=== PATIENT | female | born 1940 | race Caucasian/White ===

== ENCOUNTER → 2017-02-27 | Outpatient (REF) | payer BC, MEDICARE | LOC: M LAB REF 18:04 | PROVIDERS: ATTEND Surgery | DX: L72.3 Sebaceous cyst (principal) ==

== ENCOUNTER → 2017-03-11 | Outpatient (REF) | payer MEDICARE ==
[2017-03-11 14:40] LABS: INR 2.94
== END ==
LOC: M LAB REF 14:22
PROVIDERS: ATTEND Nurse Practitioner Adult Health
DX: Z79.01 Long term (current) use of anticoagulants (principal); Z86.718 Personal history of other venous thrombosis and embolism

== ENCOUNTER → 2017-03-28 | Outpatient (REF) | payer MEDICARE ==
[2017-03-28 18:01] LABS: RETIC HEMOGLOBIN EQUIVALENT 29.8 pg (24-36); RETICULOCYTE # 126.2 10^9/L (17-77); RETICULOCYTE % 3.1 % (0.5-1.5)
[2017-03-28 18:28] LABS: VITAMIN B12 LEVEL 365 PG/ML (247-911)
[2017-03-28 18:43] LABS: FERRITIN 43 NG/ML (8-252); IRON (FE) 238 UG/DL (50-170); PERCENT SATURATION 59.9 % (13.2-45.0); TOTAL IRON BINDING CAPACITY 397 UG/DL (250-450)
[2017-04-01 09:18] LABS: PRETREATED FOLATE FOR RBCFOL 10.4 NG/ML; RBC FOLATE 590.3 NG/ML (280-791)
== END ==
LOC: M LAB REF 16:14
DX: D64.9 Anemia, unspecified (principal)
CPT/HCPCS: 83550

== ENCOUNTER 2017-04-04 08:03 | Inpatient (IN) | payer MEDICARE, BC, OTHER ==
[2017-04-04] MEDS: MORPHINE 4 MG/ML 1ML SYRINGE IV (08:50)
[2017-04-04 09:23] LABS: BASO # 0.1 10^3/uL (0.0-0.2); BASO % 0.7 % (0.0-1.0); EOS # 0.1 10^3/uL (0.0-0.50); HEMATOCRIT 35.1 % (36.0-47.0); HEMOGLOBIN 10.7 g/dl (12.0-16.0); IMMATURE GRANULOCYTE # 0.1 10^3/uL (0-0); IMMATURE GRANULOCYTE % 0.8 % (0-0); LYMPH # 1.1 10^3/uL (1.5-4.5); LYMPH % 9.5 % (24.0-44.0); MEAN CORPUSCULAR HEMOGLOBIN 27.9 pg (27.0-33.0); MEAN CORPUSCULAR HGB CONC 30.5 g/dl (32.0-36.5); MEAN CORPUSCULAR VOLUME 91.6 fl (80.0-96.0); MONO # 0.9 10^3/uL (0.0-0.8); MONO % 7.7 % (0.0-5.0); NEUTROPHILS # 9.7 10^3/uL (1.8-7.7); NEUTROPHILS % 80.3 % (36.0-66.0); PLATELET COUNT, AUTOMATED 495 10^3/uL (150-450); RED BLOOD COUNT 3.83 10^6/uL (4.00-5.40); RED CELL DISTRIBUTION WIDTH 16.3 % (11.5-14.5)
[2017-04-04 09:33] LABS: INR 2.22; PROTHROMBIN TIME 25.4 SECONDS (12.4-14.5)
[2017-04-04 09:34] LABS: PARTIAL THROMBOPLASTIN TIME 44.6 SECONDS (26.8-37.9)
[2017-04-04 09:36] LABS: D-DIMER QUANT 2256.3 ng/ml (<500)
[2017-04-04 09:40] LABS: ALBUMIN 3.6 GM/DL (3.2-5.2); ALBUMIN/GLOBULIN RATIO 0.97 (1.00-1.93); ALKALINE PHOSPHATASE 119 U/L (45-117); ALT/SGPT 13 U/L (12-78); ANION GAP 9 MEQ/L (8-16); AST/SGOT 11 U/L (7-37); BILIRUBIN,DIRECT < 0.1 MG/DL (0.0-0.2); BILIRUBIN,TOTAL 0.2 MG/DL (0.2-1.0); BLOOD UREA NITROGEN 23 MG/DL (7-18); C REACTIVE PROTEIN QUANTITATIV < 0.30 MG/DL (0.00-0.30); CALCIUM LEVEL 8.6 MG/DL (8.8-10.2); CARBON DIOXIDE LEVEL 24 MEQ/L (21-32); CHLORIDE LEVEL 104 MEQ/L (98-107); CREATININE FOR GFR 0.99 MG/DL (0.55-1.02); GLOMERULAR FILTRATION RATE 57.8 (>39); GLUCOSE, FASTING 215 MG/DL (83-110); POTASSIUM SERUM 4.2 MEQ/L (3.5-5.1); SODIUM LEVEL 137 MEQ/L (136-145); TOTAL PROTEIN 7.3 GM/DL (6.4-8.2)
[2017-04-04 10:02] LABS: ERYTHROCYTE SEDIMENTATION RATE 37 mm/hr (0-30)
[2017-04-04] MEDS ORDERED: fentaNYL 100 MCG/2 ML INJECTION (J3010) As Ordered ×2 (11:24→12:57)
[2017-04-04] MEDS ORDERED: MIDAZOLAM INJ 2 MG/2 ML VIAL (J2250) As Ordered (11:24)
[2017-04-04] MEDS ORDERED: HEPARIN 1,000 UNITS/ML 10ML VIAL (FOR RADIOLOGY& DIALYSIS ONLY) As Ordered (11:25)
[2017-04-04] MEDS ORDERED: ISOVUE-300 61% 50ML VIAL (Q9967) As Ordered (11:25)
[2017-04-04] MEDS ORDERED: ALTEPLASE 2 MG/2 ML VIAL (J2997 PER 1MG) As Ordered (11:33)
[2017-04-04] MEDS: HEPARIN DRIP 25,000 UNITS in APPROPRIATE DILUENT 1 EA IV (14:00)
[2017-04-04] MEDS: ALTEPLASE RECOMBINANT 10 MG in APPROPRIATE DILUENT 1 EA IV (14:00)
[2017-04-04] MEDS: NS 1,000 ML IV ×3 (14:00→15:40)
[2017-04-04] MEDS ORDERED: ACETAMINOPHEN TAB 650MG DOSE (2X325MG) PO (14:00)
[2017-04-04] MEDS ORDERED: diphenhydrAMINE INJ 50MG/ML VIAL (J1200) IV (14:00)
[2017-04-04] MEDS ORDERED: EPIDURAL/PCA KEYS XX (14:00)
[2017-04-04] MEDS: ALTEPLASE RECOMBINANT 25 MG in NS 225 ML IV (14:00)
[2017-04-04] MEDS ORDERED: NALOXONE INJ 0.4 MG/1 ML VIAL (J2310) IV (14:00)
[2017-04-04] MEDS ORDERED: NALBUPHINE HCL 10 MG/ML AMP (J2300) IV (14:00)
[2017-04-04] MEDS ORDERED: MOM 30ML SUSPENSION UDC PO (14:00)
[2017-04-04] MEDS ORDERED: MORPHINE 4 MG/ML 1ML SYRINGE IV (14:00)
[2017-04-04] MEDS ORDERED: MORPHINE 2 MG/ML 1ML SYRINGE IV (14:00)
[2017-04-04] MEDS ORDERED: BISACODYL 10 MG SUPP PR (14:00)
[2017-04-04] MEDS ORDERED: MORPHINE 2 MG/ML 1ML SYRINGE As Ordered (14:24)
[2017-04-04] MEDS: MORPHINE 2 MG/ML 1ML SYRINGE IV (14:30)
[2017-04-04] MEDS: MORPHINE 1MG/ML IN 0.9% NACL 100ML IV BAG IV (14:50)
[2017-04-04 15:23] LABS: BASO # 0.1 10^3/uL (0.0-0.2); BASO % 0.5 % (0.0-1.0); EOS % 0.1 % (0.0-3.0); HEMATOCRIT 29.6 % (36.0-47.0); HEMOGLOBIN 9.4 g/dl (12.0-16.0); IMMATURE GRANULOCYTE # 0.2 10^3/uL (0-0); LYMPH # 0.5 10^3/uL (1.5-4.5); MEAN CORPUSCULAR HEMOGLOBIN 28.6 pg (27.0-33.0); MEAN CORPUSCULAR HGB CONC 31.8 g/dl (32.0-36.5); NEUTROPHILS % 89.4 % (36.0-66.0); RED BLOOD COUNT 3.29 10^6/uL (4.00-5.40); RED CELL DISTRIBUTION WIDTH 16.3 % (11.5-14.5); WHITE BLOOD COUNT 16.7 10^3/uL (4.0-10.0)
[2017-04-04 15:32] LABS: PLATELET COUNT, AUTOMATED 358 10^3/uL (150-450)
[2017-04-04 15:38] LABS: INR 2.65; PROTHROMBIN TIME 29.4 SECONDS (12.4-14.5)
[2017-04-04] MEDS: HYDROCHLOROthiazide 6.25MG PER 1/4TAB PO (15:38)
[2017-04-04 15:39] LABS: FIBRINOGEN 201 MG/DL (221-452); PARTIAL THROMBOPLASTIN TIME 50.5 SECONDS (26.8-37.9)
[2017-04-04] MEDS: ATENOLOL 25 MG TAB PO (15:39)
[2017-04-04] MEDS: SITagliptin 50 MG TAB (JANUVIA) PO (15:39)
[2017-04-04] MEDS: LOSARTAN 50 MG TAB PO (15:40)
[2017-04-04 15:59] LABS: ANION GAP 7 MEQ/L (8-16); BLOOD UREA NITROGEN 28 MG/DL (7-18); CARBON DIOXIDE LEVEL 25 MEQ/L (21-32); CHLORIDE LEVEL 107 MEQ/L (98-107); CREATININE FOR GFR 0.66 MG/DL (0.55-1.02); GLOMERULAR FILTRATION RATE > 60.0 (>39); GLUCOSE, FASTING 170 MG/DL (83-110); POTASSIUM SERUM 4.3 MEQ/L (3.5-5.1); SODIUM LEVEL 139 MEQ/L (136-145)
[2017-04-04] MEDS: TIOTROPIUM INHALER/CAPSULE (SPIRIVA) INH (16:00)
[2017-04-04] MEDS: ONDANSETRON 4MG/2ML VIAL (J2405) IV (17:45)
[2017-04-04] MEDS ORDERED: PREVNAR 13 VACCINE SYRINGE (CPT CODE:90670) IM (19:15)
[2017-04-04] MEDS: DOCUSATE SODIUM 100 MG CAP PO (21:00)
[2017-04-04] MEDS: HumaLOG INSULIN (NovoLOG) PER UNIT SC (21:00)
[2017-04-04] MEDS: PANTOPRAZOLE 20 MG TAB PO (21:00)
[2017-04-04] MEDS: ATORVASTATIN 20 MG TAB PO (21:00)
[2017-04-04] MEDS ORDERED: metFORMIN XR 500MG TAB *GLUCOPHAGE XR PO (21:00)
[2017-04-04] MEDS ORDERED: GLIMEPIRIDE 2 MG TAB PO (21:00)
[2017-04-04] MEDS: SENOKOT S TAB PO (21:00)
[2017-04-04] MEDS ORDERED: HumaLOG INSULIN (NovoLOG) PER UNIT SC (21:00)
[2017-04-04] MEDS: FERROUS SULFATE 325MG TAB PO (21:00)
[2017-04-04] MEDS ORDERED: DEXTROSE 50% 50 ML SYRINGE IV (21:15)
[2017-04-04] MEDS ORDERED: GLUCOSE 4 GM CHEW TABLET PO (21:15)
[2017-04-04] MEDS ORDERED: GLUCAGON FOR INJ 1 MG VIAL (J1610) SC (21:15)
[2017-04-04 21:25] LABS: BEDSIDE GLUCOSE 196 MG/DL (83-110)
[2017-04-05 02:51] LABS: HEMATOCRIT 27.8 % (36.0-47.0); HEMOGLOBIN 8.5 g/dl (12.0-16.0)
[2017-04-05 03:08] LABS: INR 2.55; PROTHROMBIN TIME 28.5 SECONDS (12.4-14.5)
[2017-04-05 03:09] LABS: FIBRINOGEN 194 MG/DL (221-452); PARTIAL THROMBOPLASTIN TIME 59.9 SECONDS (26.8-37.9)
[2017-04-05] MEDS: HumaLOG INSULIN (NovoLOG) PER UNIT SC ×4 (07:30→20:14)
[2017-04-05 08:40] LABS: HEMATOCRIT 27.2 % (36.0-47.0); HEMOGLOBIN 8.4 g/dl (12.0-16.0)
[2017-04-05] MEDS: ONDANSETRON 4MG/2ML VIAL (J2405) IV (08:52)
[2017-04-05 08:54] LABS: BEDSIDE GLUCOSE 129 MG/DL (83-110)
[2017-04-05 08:57] LABS: INR 2.41; PROTHROMBIN TIME 27.2 SECONDS (12.4-14.5)
[2017-04-05 08:58] LABS: FIBRINOGEN 220 MG/DL (221-452); PARTIAL THROMBOPLASTIN TIME 55.8 SECONDS (26.8-37.9)
[2017-04-05] MEDS: ATENOLOL 25 MG TAB PO (09:00)
[2017-04-05] MEDS: HYDROCHLOROthiazide 6.25MG PER 1/4TAB PO ×2 (09:00→10:54)
[2017-04-05] MEDS: LOSARTAN 50 MG TAB PO (09:00)
[2017-04-05] MEDS: TIOTROPIUM INHALER/CAPSULE (SPIRIVA) INH (09:11)
[2017-04-05] MEDS: FERROUS SULFATE 325MG TAB PO ×2 (10:54→20:11)
[2017-04-05] MEDS: PANTOPRAZOLE 20 MG TAB PO ×2 (10:54→20:11)
[2017-04-05] MEDS: DOCUSATE SODIUM 100 MG CAP PO ×2 (10:54→20:12)
[2017-04-05] MEDS: SENOKOT S TAB PO ×2 (10:54→20:12)
[2017-04-05] MEDS: ALTEPLASE RECOMBINANT 25 MG in NS 225 ML IV (12:13)
[2017-04-05] MEDS: HEPARIN DRIP 25,000 UNITS in APPROPRIATE DILUENT 1 EA IV (12:22)
[2017-04-05 12:23] LABS: BEDSIDE GLUCOSE 233 MG/DL (83-110)
[2017-04-05] MEDS: NS 1,000 ML IV (12:23)
[2017-04-05 14:11] LABS: HEMATOCRIT 26.3 % (36.0-47.0); HEMOGLOBIN 8.2 g/dl (12.0-16.0)
[2017-04-05 14:34] LABS: INR 2.47; PROTHROMBIN TIME 27.7 SECONDS (12.4-14.5)
[2017-04-05 14:35] LABS: FIBRINOGEN 238 MG/DL (221-452); PARTIAL THROMBOPLASTIN TIME 49.6 SECONDS (26.8-37.9)
[2017-04-05 17:42] LABS: BEDSIDE GLUCOSE 208 MG/DL (83-110)
[2017-04-05] MEDS: ATORVASTATIN 20 MG TAB PO (20:12)
[2017-04-05 20:13] LABS: BEDSIDE GLUCOSE 87 MG/DL (83-110)
[2017-04-05 20:15] LABS: HEMOGLOBIN 7.7 g/dl (12.0-16.0)
[2017-04-05 20:29] LABS: INR 2.44; PROTHROMBIN TIME 27.5 SECONDS (12.4-14.5)
[2017-04-05 20:30] LABS: FIBRINOGEN 252 MG/DL (221-452)
[2017-04-05 20:31] LABS: PARTIAL THROMBOPLASTIN TIME 50.2 SECONDS (26.8-37.9)
[2017-04-05] MEDS ORDERED: HumaLOG INSULIN (NovoLOG) PER UNIT SC (21:00)
[2017-04-06 01:43] LABS: HEMATOCRIT 23.9 % (36.0-47.0); HEMOGLOBIN 7.4 g/dl (12.0-16.0)
[2017-04-06 01:54] LABS: INR 2.24; PROTHROMBIN TIME 25.6 SECONDS (12.4-14.5)
[2017-04-06 01:55] LABS: FIBRINOGEN 235 MG/DL (221-452)
[2017-04-06 01:56] LABS: PARTIAL THROMBOPLASTIN TIME 50.2 SECONDS (26.8-37.9)
[2017-04-06] MEDS: HumaLOG INSULIN (NovoLOG) PER UNIT SC ×4 (07:30→20:11)
[2017-04-06 07:54] LABS: BEDSIDE GLUCOSE 151 MG/DL (83-110)
[2017-04-06 07:55] LABS: HEMATOCRIT 22.8 % (36.0-47.0); HEMOGLOBIN 7.1 g/dl (12.0-16.0)
[2017-04-06 08:06] LABS: PROTHROMBIN TIME 22.4 SECONDS (12.4-14.5)
[2017-04-06 08:07] LABS: FIBRINOGEN 245 MG/DL (221-452); PARTIAL THROMBOPLASTIN TIME 46.2 SECONDS (26.8-37.9)
[2017-04-06] MEDS: SENOKOT S TAB PO ×2 (08:38→20:09)
[2017-04-06] MEDS: ATENOLOL 25 MG TAB PO (08:38)
[2017-04-06] MEDS: LOSARTAN 50 MG TAB PO (08:39)
[2017-04-06] MEDS: DOCUSATE SODIUM 100 MG CAP PO ×2 (08:39→20:09)
[2017-04-06] MEDS: HYDROCHLOROthiazide 6.25MG PER 1/4TAB PO (08:39)
[2017-04-06] MEDS: FERROUS SULFATE 325MG TAB PO ×2 (08:39→20:10)
[2017-04-06] MEDS: PANTOPRAZOLE 20 MG TAB PO ×2 (08:39→20:09)
[2017-04-06] MEDS: TIOTROPIUM INHALER/CAPSULE (SPIRIVA) INH (08:54)
[2017-04-06] MEDS ORDERED: NORCO, ANEXSIA 5/325MG TABLET (HYDROcodone/ACETAMINOPHEN) PO (11:15)
[2017-04-06 12:00] LABS: BEDSIDE GLUCOSE 188 MG/DL (83-110)
[2017-04-06] MEDS: HEPARIN DRIP 25,000 UNITS in APPROPRIATE DILUENT 1 EA IV (13:35)
[2017-04-06] MEDS: NS IV (15:17)
[2017-04-06] MEDS: ALTEPLASE RECOMBINANT IV (15:17)
[2017-04-06 17:46] LABS: IMMEDIATE SPIN CROSSMATCH 1 2
[2017-04-06 17:51] LABS: BEDSIDE GLUCOSE 144 MG/DL (83-110)
[2017-04-06] MEDS: ATORVASTATIN 20 MG TAB PO (20:09)
[2017-04-06 20:20] LABS: BEDSIDE GLUCOSE 180 MG/DL (83-110)
[2017-04-06 23:17] LABS: INR 1.31; PROTHROMBIN TIME 16.6 SECONDS (12.4-14.5)
[2017-04-06 23:18] LABS: FIBRINOGEN 267 MG/DL (221-452); PARTIAL THROMBOPLASTIN TIME 37.1 SECONDS (26.8-37.9)
[2017-04-06 23:45] LABS: HEMOGLOBIN 10.2 g/dl (12.0-16.0)
[2017-04-07 05:20] LABS: HEMATOCRIT 31.9 % (36.0-47.0); HEMOGLOBIN 10.5 g/dl (12.0-16.0)
[2017-04-07 05:29] LABS: INR 1.18; PROTHROMBIN TIME 15.2 SECONDS (12.4-14.5)
[2017-04-07 05:30] LABS: FIBRINOGEN 286 MG/DL (221-452); PARTIAL THROMBOPLASTIN TIME 33.1 SECONDS (26.8-37.9)
[2017-04-07] MEDS: HumaLOG INSULIN (NovoLOG) PER UNIT SC ×4 (08:25→21:54)
[2017-04-07 08:26] LABS: BEDSIDE GLUCOSE 159 MG/DL (83-110)
[2017-04-07] MEDS: SENOKOT S TAB PO ×2 (08:26→21:22)
[2017-04-07] MEDS: FERROUS SULFATE 325MG TAB PO ×2 (08:26→21:22)
[2017-04-07] MEDS: LOSARTAN 50 MG TAB PO (08:26)
[2017-04-07] MEDS: DOCUSATE SODIUM 100 MG CAP PO ×2 (08:26→21:22)
[2017-04-07] MEDS: HYDROCHLOROthiazide 6.25MG PER 1/4TAB PO (08:27)
[2017-04-07] MEDS: PANTOPRAZOLE 20 MG TAB PO ×2 (08:27→21:22)
[2017-04-07] MEDS: ATENOLOL 12.5MG PER 1/2 TABLET PO (08:27)
[2017-04-07] MEDS: TIOTROPIUM INHALER/CAPSULE (SPIRIVA) INH (10:09)
[2017-04-07 11:03] LABS: HEMATOCRIT 32.1 % (36.0-47.0); HEMOGLOBIN 10.6 g/dl (12.0-16.0)
[2017-04-07 11:30] LABS: INR 1.15; PARTIAL THROMBOPLASTIN TIME 32.6 SECONDS (26.8-37.9); PROTHROMBIN TIME 14.9 SECONDS (12.4-14.5)
[2017-04-07 11:31] LABS: FIBRINOGEN 290 MG/DL (221-452)
[2017-04-07 11:43] LABS: BEDSIDE GLUCOSE 307 MG/DL (83-110)
[2017-04-07] MEDS ORDERED: ISOVUE-300 61% 50ML VIAL (Q9967) As Ordered (11:59)
[2017-04-07] MEDS ORDERED: HEPARIN 1,000 UNITS/ML 10ML VIAL (FOR RADIOLOGY& DIALYSIS ONLY) As Ordered (13:10)
[2017-04-07] MEDS: HEPARIN DRIP 25,000 UNITS in APPROPRIATE DILUENT 1 EA IV (15:14)
[2017-04-07 17:35] LABS: INR 1.12; PROTHROMBIN TIME 14.6 SECONDS (12.4-14.5)
[2017-04-07 17:36] LABS: BEDSIDE GLUCOSE 234 MG/DL (83-110)
[2017-04-07 17:37] LABS: PARTIAL THROMBOPLASTIN TIME 108.4 SECONDS (26.8-37.9)
[2017-04-07 21:13] LABS: BEDSIDE GLUCOSE 191 MG/DL (83-110)
[2017-04-07] MEDS: ATORVASTATIN 20 MG TAB PO (21:22)
[2017-04-08 01:04] LABS: PROTHROMBIN TIME 13.9 SECONDS (12.4-14.5)
[2017-04-08 01:05] LABS: INR 1.06
[2017-04-08 05:58] LABS: RED BLOOD COUNT 3.67 10^6/uL (4.00-5.40); WHITE BLOOD COUNT 9.9 10^3/uL (4.0-10.0)
[2017-04-08 05:59] LABS: HEMATOCRIT 32.2 % (36.0-47.0); HEMOGLOBIN 10.7 g/dl (12.0-16.0); MEAN CORPUSCULAR HEMOGLOBIN 29.2 pg (27.0-33.0); MEAN CORPUSCULAR HGB CONC 33.2 g/dl (32.0-36.5); MEAN CORPUSCULAR VOLUME 87.7 fl (80.0-96.0); PLATELET COUNT, AUTOMATED 250 10^3/uL (150-450); RED CELL DISTRIBUTION WIDTH 15.4 % (11.5-14.5)
[2017-04-08 06:15] LABS: PARTIAL THROMBOPLASTIN TIME 52.5 SECONDS (26.8-37.9); PROTHROMBIN TIME 13.3 SECONDS (12.4-14.5)
[2017-04-08 06:18] LABS: BLOOD UREA NITROGEN 15 MG/DL (7-18); CREATININE FOR GFR 0.64 MG/DL (0.55-1.02); GLOMERULAR FILTRATION RATE > 60.0 (>39); GLUCOSE, FASTING 167 MG/DL (83-110)
[2017-04-08 06:19] LABS: ANION GAP 5 MEQ/L (8-16); CALCIUM LEVEL 8.1 MG/DL (8.8-10.2); CARBON DIOXIDE LEVEL 29 MEQ/L (21-32); CHLORIDE LEVEL 104 MEQ/L (98-107); POTASSIUM SERUM 3.9 MEQ/L (3.5-5.1); SODIUM LEVEL 138 MEQ/L (136-145)
[2017-04-08] MEDS: HumaLOG INSULIN (NovoLOG) PER UNIT SC ×5 (09:00→22:30)
[2017-04-08] MEDS: ATENOLOL 12.5MG PER 1/2 TABLET PO (09:01)
[2017-04-08] MEDS: LOSARTAN 50 MG TAB PO (09:01)
[2017-04-08] MEDS: SENOKOT S TAB PO ×2 (09:02→22:29)
[2017-04-08] MEDS: DOCUSATE SODIUM 100 MG CAP PO ×2 (09:02→22:30)
[2017-04-08] MEDS: HYDROCHLOROthiazide 6.25MG PER 1/4TAB PO (09:02)
[2017-04-08] MEDS: FERROUS SULFATE 325MG TAB PO ×2 (09:02→22:30)
[2017-04-08] MEDS: PANTOPRAZOLE 20 MG TAB PO ×2 (09:02→22:29)
[2017-04-08] MEDS: TIOTROPIUM INHALER/CAPSULE (SPIRIVA) INH (09:12)
[2017-04-08 11:46] LABS: BEDSIDE GLUCOSE 243 MG/DL (83-110)
[2017-04-08] MEDS: HEPARIN DRIP 25,000 UNITS in APPROPRIATE DILUENT 1 EA IV ×2 (13:51→15:19)
[2017-04-08] MEDS ORDERED: HEPARIN SOD (PORCINE) 5000 UNITS/ML VIAL IV (14:30)
[2017-04-08 14:53] LABS: PARTIAL THROMBOPLASTIN TIME 50.7 SECONDS (26.8-37.9)
[2017-04-08 15:16] LABS: HEMATOCRIT 32.1 % (36.0-47.0); HEMOGLOBIN 10.4 g/dl (12.0-16.0); MEAN CORPUSCULAR HEMOGLOBIN 29.3 pg (27.0-33.0); MEAN CORPUSCULAR HGB CONC 32.4 g/dl (32.0-36.5); MEAN CORPUSCULAR VOLUME 90.4 fl (80.0-96.0); PLATELET COUNT, AUTOMATED 234 10^3/uL (150-450); RED BLOOD COUNT 3.55 10^6/uL (4.00-5.40); RED CELL DISTRIBUTION WIDTH 15.6 % (11.5-14.5); WHITE BLOOD COUNT 8.9 10^3/uL (4.0-10.0)
[2017-04-08] MEDS: HEPARIN SOD (PORCINE) 5000 UNITS/ML VIAL IV (15:20)
[2017-04-08 16:02] LABS: ANION GAP 8 MEQ/L (8-16); BLOOD UREA NITROGEN 15 MG/DL (7-18); CALCIUM LEVEL 7.8 MG/DL (8.8-10.2); CARBON DIOXIDE LEVEL 26 MEQ/L (21-32); CHLORIDE LEVEL 106 MEQ/L (98-107); CREATININE FOR GFR 0.85 MG/DL (0.55-1.02); GLOMERULAR FILTRATION RATE > 60.0 (>39); GLUCOSE, FASTING 291 MG/DL (83-110); POTASSIUM SERUM 3.8 MEQ/L (3.5-5.1); SODIUM LEVEL 140 MEQ/L (136-145)
[2017-04-08 17:10] LABS: BEDSIDE GLUCOSE 277 MG/DL (83-110)
[2017-04-08] MEDS: WARFARIN SOD 5 MG TAB PO (17:17)
[2017-04-08 20:43] LABS: BEDSIDE GLUCOSE 219 MG/DL (83-110)
[2017-04-08 21:06] LABS: PARTIAL THROMBOPLASTIN TIME 69.4 SECONDS (26.8-37.9)
[2017-04-08] MEDS: ATORVASTATIN 20 MG TAB PO (22:29)
[2017-04-09 02:41] LABS: PARTIAL THROMBOPLASTIN TIME 65.5 SECONDS (26.8-37.9)
[2017-04-09 07:55] LABS: BEDSIDE GLUCOSE 212 MG/DL (83-110)
[2017-04-09] MEDS: DOCUSATE SODIUM 100 MG CAP PO (09:04)
[2017-04-09] MEDS: ATENOLOL 12.5MG PER 1/2 TABLET PO (09:04)
[2017-04-09] MEDS: HYDROCHLOROthiazide 6.25MG PER 1/4TAB PO (09:04)
[2017-04-09] MEDS: PANTOPRAZOLE 20 MG TAB PO (09:05)
[2017-04-09] MEDS: ASPIRIN 81 MG ENTERIC TAB PO (09:05)
[2017-04-09] MEDS: LOSARTAN 50 MG TAB PO (09:05)
[2017-04-09] MEDS: SENOKOT S TAB PO (09:05)
[2017-04-09] MEDS: FERROUS SULFATE 325MG TAB PO (09:05)
[2017-04-09] MEDS: HumaLOG INSULIN (NovoLOG) PER UNIT SC ×2 (09:06→11:42)
[2017-04-09] MEDS: TIOTROPIUM INHALER/CAPSULE (SPIRIVA) INH (10:00)
[2017-04-09 11:35] LABS: BEDSIDE GLUCOSE 311 MG/DL (83-110)
[2017-04-09] MEDS: HEPARIN DRIP 25,000 UNITS in APPROPRIATE DILUENT 1 EA IV (14:30)
[2017-04-09] MEDS ORDERED: WARFARIN SOD 7.5 MG TAB PO (17:00)
== END 2017-04-09 17:00 | disposition home or self-care (01) | DRG 253 ==
LOC: M MS4PR 04-07 18:43 → M ED 08:03 → M ED INP 13:49 → M ICU 13:49
PROC: 047L3ZZ Dilation of Left Femoral Artery, Percutaneous Approach (ICD-10-PCS; principal; 2017-04-04)
PROC: 047K3ZZ Dilation of Right Femoral Artery, Percutaneous Approach (ICD-10-PCS; 2017-04-04)
PROC: 3E05317 Introduction of Other Thrombolytic into Peripheral Artery, Percutaneous Approach (ICD-10-PCS; 2017-04-04)
PROC: B41FYZZ Fluoroscopy of Right Lower Extremity Arteries using Other Contrast (ICD-10-PCS; 2017-04-04)
PROC: B41GYZZ Fluoroscopy of Left Lower Extremity Arteries using Other Contrast (ICD-10-PCS; 2017-04-07)
PROC: B41FYZZ Fluoroscopy of Right Lower Extremity Arteries using Other Contrast (ICD-10-PCS; 2017-04-07)
DX: I74.3 Embolism and thrombosis of arteries of the lower extremities (principal); T82.868A Thrombosis due to vascular prosthetic devices, implants and grafts, initial encounter; I82.402 Acute embolism and thrombosis of unspecified deep veins of left lower extremity; F17.200 Nicotine dependence, unspecified, uncomplicated

== ENCOUNTER 2017-04-21 12:11 | Inpatient (IN) | payer MEDICARE ==
[2017-04-21 14:48] LABS: BASO # 0.1 10^3/uL (0.0-0.2); BASO % 0.4 % (0.0-1.0); EOS # 0.1 10^3/uL (0.0-0.50); EOS % 0.3 % (0.0-3.0); HEMATOCRIT 30.4 % (36.0-47.0); HEMOGLOBIN 9.5 g/dl (12.0-16.0); IMMATURE GRANULOCYTE # 0.1 10^3/uL (0-0); IMMATURE GRANULOCYTE % 0.8 % (0-0); LYMPH # 0.6 10^3/uL (1.5-4.5); LYMPH % 4.4 % (24.0-44.0); MEAN CORPUSCULAR HEMOGLOBIN 27.7 pg (27.0-33.0); MEAN CORPUSCULAR HGB CONC 31.3 g/dl (32.0-36.5); MEAN CORPUSCULAR VOLUME 88.6 fl (80.0-96.0); MONO # 0.8 10^3/uL (0.0-0.8); MONO % 5.4 % (0.0-5.0); NEUTROPHILS # 12.7 10^3/uL (1.8-7.7); NEUTROPHILS % 88.7 % (36.0-66.0); PLATELET COUNT, AUTOMATED 591 10^3/uL (150-450); RED BLOOD COUNT 3.43 10^6/uL (4.00-5.40); RED CELL DISTRIBUTION WIDTH 15.1 % (11.5-14.5); WHITE BLOOD COUNT 14.3 10^3/uL (4.0-10.0)
[2017-04-21 15:02] LABS: INR 3.67; PROTHROMBIN TIME 38.3 SECONDS (12.4-14.5)
[2017-04-21 15:03] LABS: PARTIAL THROMBOPLASTIN TIME 69.6 SECONDS (26.8-37.9)
[2017-04-21 15:16] LABS: ALKALINE PHOSPHATASE 100 U/L (45-117); ALT/SGPT 14 U/L (12-78); AMYLASE 33 U/L (25-115); ANION GAP 10 MEQ/L (8-16); AST/SGOT 13 U/L (7-37); BILIRUBIN,DIRECT < 0.1 MG/DL (0.0-0.2); BILIRUBIN,TOTAL 0.1 MG/DL (0.2-1.0); BLOOD UREA NITROGEN 31 MG/DL (7-18); CALCIUM LEVEL 8.7 MG/DL (8.8-10.2); CARBON DIOXIDE LEVEL 23 MEQ/L (21-32); CHLORIDE LEVEL 107 MEQ/L (98-107); GLOMERULAR FILTRATION RATE 57.1 (>39); GLUCOSE, FASTING 130 MG/DL (70-100); LIPASE 100 U/L (73-393); POTASSIUM SERUM 4.8 MEQ/L (3.5-5.1); SODIUM LEVEL 140 MEQ/L (136-145); TOTAL PROTEIN 7.3 GM/DL (6.4-8.2)
[2017-04-21] MEDS: PANTOPRAZOLE 40MG INJ (PROTONIX) (C9113) IV (16:12)
[2017-04-21] MEDS: NS 1,000 ML IV (16:12)
[2017-04-21] MEDS ORDERED: ONDANSETRON 4MG/2ML VIAL (J2405) IV (16:30)
[2017-04-21] MEDS ORDERED: ACETAMINOPHEN TAB 650MG DOSE (2X325MG) PO (16:30)
[2017-04-21] MEDS ORDERED: FERROUS SULFATE 325MG TAB PO (21:00)
[2017-04-21] MEDS ORDERED: SLF 3 ML SYR IV (21:00)
[2017-04-21] MEDS ORDERED: PANTOPRAZOLE 20 MG TAB PO (21:00)
[2017-04-21] MEDS ORDERED: IPRATROPIUM 0.5MG/ALBUTEROL 2.5MG INH SOL UD 3ML (DUONEB)(J7620) NEB (21:15)
[2017-04-21] MEDS ORDERED: GLUCAGON FOR INJ 1 MG VIAL (J1610) SC (21:15)
[2017-04-21] MEDS ORDERED: GLUCOSE 4 GM CHEW TABLET PO (21:15)
[2017-04-21] MEDS ORDERED: DEXTROSE 50% 50 ML SYRINGE IV (21:15)
[2017-04-21 21:26] LABS: TYPE AND SCREEN 1
[2017-04-21] MEDS: HumaLOG INSULIN (NovoLOG) PER UNIT SC (22:16)
[2017-04-21] MEDS: PHYTONADIONE 5 MG TAB PO (22:23)
[2017-04-21] MEDS: ATORVASTATIN 20 MG TAB PO (22:23)
[2017-04-21] MEDS: SLF 3 ML SYR IV (22:24)
[2017-04-21 22:25] LABS: BEDSIDE GLUCOSE 143 MG/DL (83-110)
[2017-04-22 04:07] LABS: HEMATOCRIT 22.4 % (36.0-47.0); MEAN CORPUSCULAR HEMOGLOBIN 27.6 pg (27.0-33.0); MEAN CORPUSCULAR HGB CONC 31.7 g/dl (32.0-36.5); MEAN CORPUSCULAR VOLUME 87.2 fl (80.0-96.0); RED BLOOD COUNT 2.57 10^6/uL (4.00-5.40); RED CELL DISTRIBUTION WIDTH 15.1 % (11.5-14.5); WHITE BLOOD COUNT 9.1 10^3/uL (4.0-10.0)
[2017-04-22 04:12] LABS: HEMOGLOBIN 7.1 g/dl (12.0-16.0); PLATELET COUNT, AUTOMATED 480 10^3/uL (150-450)
[2017-04-22 04:19] LABS: INR 1.99; PROTHROMBIN TIME 23.3 SECONDS (12.4-14.5)
[2017-04-22 04:28] LABS: ANION GAP 7 MEQ/L (8-16); BLOOD UREA NITROGEN 21 MG/DL (7-18); CALCIUM LEVEL 8.2 MG/DL (8.8-10.2); CARBON DIOXIDE LEVEL 28 MEQ/L (21-32); CHLORIDE LEVEL 109 MEQ/L (98-107); CREATININE FOR GFR 0.73 MG/DL (0.55-1.30); GLOMERULAR FILTRATION RATE > 60.0 (>39); GLUCOSE, FASTING 87 MG/DL (70-100); SODIUM LEVEL 144 MEQ/L (136-145)
[2017-04-22] MEDS: PANTOPRAZOLE 40MG INJ (PROTONIX) (C9113) IV ×2 (06:48→18:29)
[2017-04-22] MEDS: SLF 3 ML SYR IV ×3 (06:49→21:08)
[2017-04-22] MEDS: HumaLOG INSULIN (NovoLOG) PER UNIT SC ×4 (07:17→21:00)
[2017-04-22] MEDS: LOSARTAN 50 MG TAB PO (07:53)
[2017-04-22] MEDS: ATENOLOL 12.5MG PER 1/2 TABLET PO (07:54)
[2017-04-22] MEDS: HYDROCHLOROthiazide 6.25MG PER 1/4TAB PO (07:54)
[2017-04-22] MEDS: TIOTROPIUM INHALER/CAPSULE (SPIRIVA) INH (10:55)
[2017-04-22 10:57] LABS: TYPE AND SCREEN 1
[2017-04-22 11:27] LABS: BEDSIDE GLUCOSE 140 MG/DL (83-110)
[2017-04-22 13:34] LABS: HEMATOCRIT 26.5 % (36.0-47.0); HEMOGLOBIN 8.6 g/dl (12.0-16.0)
[2017-04-22 13:48] LABS: INR 1.54; PROTHROMBIN TIME 18.9 SECONDS (12.4-14.5)
[2017-04-22] MEDS ORDERED: LIDOCAINE 2% INJ 100 MG/5 ML SDV (FOR ANES.) As Ordered (14:07)
[2017-04-22] MEDS ORDERED: PROPOFOL 200 MG/20 ML VIAL As Ordered ×2 (14:07→14:22)
[2017-04-22] MEDS ORDERED: GLUCAGON FOR INJ 1 MG VIAL (J1610) As Ordered (14:19)
[2017-04-22 16:08] LABS: IMMEDIATE SPIN CROSSMATCH 1 2
[2017-04-22] MEDS: GOLYTELY SOLN 4000 ML BTL PO (18:29)
[2017-04-22 19:10] LABS: HEMATOCRIT 32.4 % (36.0-47.0); HEMOGLOBIN 10.7 g/dl (12.0-16.0)
[2017-04-22] MEDS: ATORVASTATIN 20 MG TAB PO (21:08)
[2017-04-22 21:21] LABS: BEDSIDE GLUCOSE 117 MG/DL (83-110)
[2017-04-23 00:47] LABS: BEDSIDE GLUCOSE 147 MG/DL (83-110)
[2017-04-23] MEDS: GOLYTELY SOLN 4000 ML BTL PO (04:37)
[2017-04-23] MEDS: PANTOPRAZOLE 40MG INJ (PROTONIX) (C9113) IV ×2 (05:15→17:59)
[2017-04-23] MEDS: SLF 3 ML SYR IV ×3 (05:15→20:20)
[2017-04-23 05:21] LABS: HEMOGLOBIN 10.2 g/dl (12.0-16.0); MEAN CORPUSCULAR HEMOGLOBIN 28.3 pg (27.0-33.0); MEAN CORPUSCULAR HGB CONC 32.9 g/dl (32.0-36.5); MEAN CORPUSCULAR VOLUME 86.1 fl (80.0-96.0); PLATELET COUNT, AUTOMATED 410 10^3/uL (150-450); RED CELL DISTRIBUTION WIDTH 14.4 % (11.5-14.5); WHITE BLOOD COUNT 8.4 10^3/uL (4.0-10.0)
[2017-04-23 05:31] LABS: INR 1.37; PROTHROMBIN TIME 17.2 SECONDS (12.4-14.5)
[2017-04-23 05:37] LABS: ANION GAP 8 MEQ/L (8-16); BLOOD UREA NITROGEN 9 MG/DL (7-18); CALCIUM LEVEL 7.7 MG/DL (8.8-10.2); CARBON DIOXIDE LEVEL 27 MEQ/L (21-32); CHLORIDE LEVEL 107 MEQ/L (98-107); CREATININE FOR GFR 0.57 MG/DL (0.55-1.30); GLOMERULAR FILTRATION RATE > 60.0 (>39); GLUCOSE, FASTING 88 MG/DL (70-100); POTASSIUM SERUM 3.6 MEQ/L (3.5-5.1); SODIUM LEVEL 142 MEQ/L (136-145)
[2017-04-23] MEDS: HumaLOG INSULIN (NovoLOG) PER UNIT SC ×4 (07:30→20:00)
[2017-04-23] MEDS: TIOTROPIUM INHALER/CAPSULE (SPIRIVA) INH (07:56)
[2017-04-23] MEDS: HYDROCHLOROthiazide 6.25MG PER 1/4TAB PO (08:40)
[2017-04-23] MEDS: LOSARTAN 50 MG TAB PO (08:40)
[2017-04-23] MEDS: ATENOLOL 12.5MG PER 1/2 TABLET PO (08:45)
[2017-04-23 10:11] LABS: HEMATOCRIT 30.9 % (36.0-47.0); HEMOGLOBIN 10.2 g/dl (12.0-16.0)
[2017-04-23] MEDS ORDERED: PROPOFOL 200 MG/20 ML VIAL As Ordered ×2 (12:34→13:00)
[2017-04-23] MEDS ORDERED: LIDOCAINE 2% INJ 100 MG/5 ML SDV (FOR ANES.) As Ordered (13:32)
[2017-04-23 16:21] LABS: HEMATOCRIT 32.2 % (36.0-47.0); HEMOGLOBIN 10.9 g/dl (12.0-16.0)
[2017-04-23 16:52] LABS: BEDSIDE GLUCOSE 151 MG/DL (83-110)
[2017-04-23 20:14] LABS: BEDSIDE GLUCOSE 123 MG/DL (83-110)
[2017-04-23] MEDS: ATORVASTATIN 20 MG TAB PO (20:20)
[2017-04-23 22:16] LABS: HEMATOCRIT 30.8 % (36.0-47.0); HEMOGLOBIN 10.1 g/dl (12.0-16.0)
[2017-04-24 05:02] LABS: HEMATOCRIT 30.3 % (36.0-47.0); HEMOGLOBIN 10.2 g/dl (12.0-16.0); MEAN CORPUSCULAR HEMOGLOBIN 29.1 pg (27.0-33.0); MEAN CORPUSCULAR HGB CONC 33.7 g/dl (32.0-36.5); MEAN CORPUSCULAR VOLUME 86.3 fl (80.0-96.0); PLATELET COUNT, AUTOMATED 388 10^3/uL (150-450); RED BLOOD COUNT 3.51 10^6/uL (4.00-5.40); RED CELL DISTRIBUTION WIDTH 14.6 % (11.5-14.5); WHITE BLOOD COUNT 9.1 10^3/uL (4.0-10.0)
[2017-04-24 05:13] LABS: INR 1.37; PROTHROMBIN TIME 17.2 SECONDS (12.4-14.5)
[2017-04-24 05:30] LABS: ANION GAP 8 MEQ/L (8-16); BLOOD UREA NITROGEN 8 MG/DL (7-18); CALCIUM LEVEL 6.9 MG/DL (8.8-10.2); CARBON DIOXIDE LEVEL 24 MEQ/L (21-32); CHLORIDE LEVEL 111 MEQ/L (98-107); CREATININE FOR GFR 0.58 MG/DL (0.55-1.30); GLOMERULAR FILTRATION RATE > 60.0 (>39); GLUCOSE, FASTING 143 MG/DL (70-100); POTASSIUM SERUM 3.3 MEQ/L (3.5-5.1); SODIUM LEVEL 143 MEQ/L (136-145)
[2017-04-24] MEDS: SLF 3 ML SYR IV ×3 (07:00→20:52)
[2017-04-24] MEDS: PANTOPRAZOLE 40MG INJ (PROTONIX) (C9113) IV ×2 (07:00→18:48)
[2017-04-24] MEDS: POTASSIUM CHLORIDE 10 MEQ SR TABLET PO (07:01)
[2017-04-24] MEDS: TIOTROPIUM INHALER/CAPSULE (SPIRIVA) INH (07:34)
[2017-04-24] MEDS: HumaLOG INSULIN (NovoLOG) PER UNIT SC ×4 (07:42→20:52)
[2017-04-24] MEDS: HYDROCHLOROthiazide 6.25MG PER 1/4TAB PO (08:35)
[2017-04-24] MEDS: ATENOLOL 12.5MG PER 1/2 TABLET PO (08:35)
[2017-04-24] MEDS: ASPIRIN 325 MG TAB PO (08:36)
[2017-04-24] MEDS: LOSARTAN 50 MG TAB PO (08:36)
[2017-04-24 10:27] LABS: HEMATOCRIT 31.8 % (36.0-47.0); HEMOGLOBIN 10.4 g/dl (12.0-16.0)
[2017-04-24 12:10] LABS: BEDSIDE GLUCOSE 257 MG/DL (83-110)
[2017-04-24 15:58] LABS: HEMATOCRIT 31.3 % (36.0-47.0); HEMOGLOBIN 10.3 g/dl (12.0-16.0)
[2017-04-24 20:34] LABS: BEDSIDE GLUCOSE 205 MG/DL (83-110)
[2017-04-24] MEDS: ATORVASTATIN 20 MG TAB PO (20:52)
[2017-04-25] MEDS: PANTOPRAZOLE 40MG INJ (PROTONIX) (C9113) IV (05:51)
[2017-04-25] MEDS: SLF 3 ML SYR IV (05:51)
[2017-04-25] MEDS: TIOTROPIUM INHALER/CAPSULE (SPIRIVA) INH (07:03)
[2017-04-25 07:15] LABS: HEMATOCRIT 32.9 % (36.0-47.0); HEMOGLOBIN 10.6 g/dl (12.0-16.0); MEAN CORPUSCULAR HEMOGLOBIN 28.5 pg (27.0-33.0); MEAN CORPUSCULAR HGB CONC 32.2 g/dl (32.0-36.5); MEAN CORPUSCULAR VOLUME 88.4 fl (80.0-96.0); PLATELET COUNT, AUTOMATED 412 10^3/uL (150-450); RED BLOOD COUNT 3.72 10^6/uL (4.00-5.40); RED CELL DISTRIBUTION WIDTH 14.5 % (11.5-14.5); WHITE BLOOD COUNT 10.1 10^3/uL (4.0-10.0)
[2017-04-25 07:27] LABS: PROTHROMBIN TIME 15.4 SECONDS (12.4-14.5)
[2017-04-25] MEDS: HumaLOG INSULIN (NovoLOG) PER UNIT SC (07:30)
[2017-04-25 07:36] LABS: ANION GAP 7 MEQ/L (8-16); BLOOD UREA NITROGEN 6 MG/DL (7-18); CALCIUM LEVEL 7.5 MG/DL (8.8-10.2); CARBON DIOXIDE LEVEL 25 MEQ/L (21-32); CHLORIDE LEVEL 109 MEQ/L (98-107); CREATININE FOR GFR 0.65 MG/DL (0.55-1.30); GLOMERULAR FILTRATION RATE > 60.0 (>39); GLUCOSE, FASTING 139 MG/DL (70-100); POTASSIUM SERUM 3.8 MEQ/L (3.5-5.1); SODIUM LEVEL 141 MEQ/L (136-145)
[2017-04-25] MEDS: ASPIRIN 325 MG TAB PO (09:37)
[2017-04-25] MEDS: LOSARTAN 50 MG TAB PO (09:40)
[2017-04-25] MEDS: HYDROCHLOROthiazide 6.25MG PER 1/4TAB PO (09:40)
[2017-04-25] MEDS: ATENOLOL 12.5MG PER 1/2 TABLET PO (09:40)
== END 2017-04-25 10:45 | disposition home or self-care (01) | DRG 378 ==
LOC: M MS5PR 04-25 03:50 → M ED 12:11 → M ED INP 16:28 → M PCU 20:10
PROC: 8E0W4CZ Robotic Assisted Procedure of Trunk Region, Percutaneous Endoscopic Approach (ICD-10-PCS; 2017-04-22 13:00)
PROC: 30233N1 Transfusion of Nonautologous Red Blood Cells into Peripheral Vein, Percutaneous Approach (ICD-10-PCS; principal; 2017-04-22 14:03)
PROC: 30233K1 Transfusion of Nonautologous Frozen Plasma into Peripheral Vein, Percutaneous Approach (ICD-10-PCS; 2017-04-22 14:03)
PROC: 0DBL8ZX Excision of Transverse Colon, Via Natural or Artificial Opening Endoscopic, Diagnostic (ICD-10-PCS; 2017-04-22 14:03)
DX: K55.21 Angiodysplasia of colon with hemorrhage (principal); D62 Acute posthemorrhagic anemia; K63.5 Polyp of colon; K57.30 Diverticulosis of large intestine without perforation or abscess without bleeding; K64.8 Other hemorrhoids; J44.9 Chronic obstructive pulmonary disease, unspecified; E78.5 Hyperlipidemia, unspecified; I10 Essential (primary) hypertension; E11.9 Type 2 diabetes mellitus without complications; Z79.899 Other long term (current) drug therapy; Z79.01 Long term (current) use of anticoagulants; Z87.891 Personal history of nicotine dependence; D72.829 Elevated white blood cell count, unspecified; K44.9 Diaphragmatic hernia without obstruction or gangrene; Z86.718 Personal history of other venous thrombosis and embolism

== ENCOUNTER 2018-07-06 08:54 | Inpatient (IN) | payer MEDICAID, MEDICARE ==
[~2018-07-06] VITALS: Ht 170.2 cm; Wt 53.5 kg
[~2018-07-06 08:54] MED LIST: ASPI81TA85 PO; ATEN25TA PO; ATOR40TA75 PO; CEFD1CAP8 PO; FERR1TAB8 PO; GLIM4TAB PO; HYDR12.55 PO; LOSA100T50 PO; METF-415 PO; PANT20TA2 PO; PLAV1TAB2 PO; PROT1TAB2 PO; SITA50TAB PO; SPIR1CAP; SPIR1CAP INH; WARF-18; WARF-18 PO
[2018-07-06] MEDS ORDERED: MORPHINE 2 MG/ML 1ML SYRINGE (J2270) IV PRN (09:15)
[2018-07-06] MEDS ORDERED: ONDANSETRON 4MG/2ML VIAL (J2405) IV ONE (09:15)
[2018-07-06] MEDS: NS 1,000 ML IV SCH ×2 (09:27→17:31)
[2018-07-06 09:37] LABS: BASO # 0.1 10^3/uL (0.0-0.2); BASO % 0.8 % (0.0-1.0); EOS # 0.1 10^3/uL (0.0-0.50); EOS % 1.4 % (0.0-3.0); HEMATOCRIT 23.6 % (36.0-47.0); LYMPH # 0.6 10^3/uL (1.5-4.5); LYMPH % 7.9 % (24.0-44.0); MEAN CORPUSCULAR HEMOGLOBIN 24.3 pg (27.0-33.0); MEAN CORPUSCULAR HGB CONC 29.2 g/dl (32.0-36.5); MEAN CORPUSCULAR VOLUME 83.1 fl (80.0-96.0); MONO # 0.7 10^3/uL (0.0-0.8); MONO % 9.1 % (0.0-5.0); NEUTROPHILS # 5.7 10^3/uL (1.8-7.7); NEUTROPHILS % 80.4 % (36.0-66.0); PLATELET COUNT, AUTOMATED 420 10^3/uL (150-450); RED BLOOD COUNT 2.84 10^6/uL (4.00-5.40); WHITE BLOOD COUNT 7.1 10^3/uL (4.0-10.0)
[2018-07-06] MEDS ORDERED: PANTOPRAZOLE 40MG INJ (PROTONIX) (C9113) IV ONE (09:45)
[2018-07-06 09:47] LABS: HEMOGLOBIN 6.9 g/dl (12.0-15.5)
[2018-07-06 10:01] LABS: ALBUMIN 3.5 GM/DL (3.2-5.2); ALT/SGPT 15 U/L (12-78); BILIRUBIN,DIRECT 0.1 MG/DL (0.0-0.2); BILIRUBIN,TOTAL 0.3 MG/DL (0.2-1.0); BLOOD UREA NITROGEN 12 MG/DL (7-18); CALCIUM LEVEL 8.4 MG/DL (8.8-10.2); CARBON DIOXIDE LEVEL 27 MEQ/L (21-32); CHLORIDE LEVEL 108 MEQ/L (98-107); CK-MB VALUE MASS < 1.0 NG/ML (<3.6); CPK CREATINE PHOSPHOKINASE 22 U/L (26-192); CREATININE FOR GFR 0.78 MG/DL (0.55-1.30); GLOMERULAR FILTRATION RATE > 60.0 (>39); GLUCOSE, FASTING 152 MG/DL (70-100); LIPASE 119 U/L (73-393); MB/CK RELATIVE INDEX 4.55 (< OR =4); POTASSIUM SERUM 4.2 MEQ/L (3.5-5.1); SODIUM LEVEL 139 MEQ/L (136-145); TOTAL PROTEIN 7.1 GM/DL (6.4-8.2); TROPONIN I < 0.02 NG/ML (< 0.10)
[2018-07-06] MEDS: PANTOPRAZOLE SODIUM 40 MG in D5W 50 ML IV SCH ×3 (10:02→19:49)
[2018-07-06 10:13] LABS: INR 0.96; PROTHROMBIN TIME 12.9 SECONDS (12.1-14.4)
[2018-07-06 10:14] LABS: PARTIAL THROMBOPLASTIN TIME 29.1 SECONDS (25.4-37.6)
--- NOTE | 2018-07-06 10:15 | REP ---
Acute abdominal series three views including PA chest and supine upright abdomen: PA chest: Comparison is 10/22/2015. There is a 2.4 cm left upper lobe lung nodule as an interval change. Follow-up chest CT is recommended. There are surgical clips superimposed over the left upper lobe, unchanged. Lung mulligan otherwise clear. Cardiac size is normal. The susana, mediastinum, skeletal structures are otherwise unremarkable. There is no free subdiaphragmatic air. Impression: 2.4 cm upper lobe lung nodule. Follow-up chest CT is recommended. Abdomen, supine upright views: The bowel gas pattern is normal. There is a stent in the right upper quadrant, possibly a biliary stent. There are bilateral iliac artery endovascular stents. There are surgical clips in the femoral areas bilaterally. There are no calcifications. Impression: Normal bowel gas pattern. Postsurgical changes as described. Electronically Signed by Allan Cope MD 07/06/2018 10:06 A
[2018-07-06] MEDS ORDERED: AMLO5TAB6 PO (10:35)
[2018-07-06] MEDS ORDERED: LOSA50TA88 PO (10:35)
[2018-07-06] MEDS ORDERED: GLIM2TAB PO (10:35)
[2018-07-06] MEDS ORDERED: DEXTROSE 50% 50 ML SYRINGE IV PRN (11:45)
[2018-07-06] MEDS ORDERED: GLUCOSE 4 GM CHEW TABLET PO PRN (11:45)
[2018-07-06] MEDS ORDERED: GLUCAGON FOR INJ 1 MG VIAL (J1610) SC PRN (11:45)
--- NOTE | 2018-07-06 12:57 | HPE ---
DATE OF ADMISSION: 07/06/2018 PRIMARY CARE PROVIDER: Dr. Nuno Hull. FILLING CARRIER: Dr. iVk Santoyo. CHIEF COMPLAINT: Upper gastrointestinal (GI) bleed with acute blood loss anemia. HISTORY: Carolynn Hale is a 78-year-old. Most of the history is provided by her daughter. Indicate the patient was seen in her primary care office on Friday. Had a syncopal or near syncopal episode in the office. Labs were drawn and patient was told to return to the office today to review these. She has been in bed all weekend, too weak and tired and dizzy to get out of bed. Finally, family brought her to the emergency room where she was found to have a hemoglobin of 6.9. She has heme positive black stools per emergency room evaluation. She is followed by Dr. Vik Santoyo. She had a endoscopic retrograde cholangiopancreatography (ERCP) done June 2017 when she had the cholangitis and required a biliary stent. She has had upper GI bleeds in the past. She has had lower GI bleeding as well. On 03/26/2017, she had a colonoscopy, which just showed some small polyps. She had an esophagogastroduodenoscopy (EGD) on 04/22/2017 that showed multiple (more than 10) small angioectasia of the duodenum treated with argon-beam coagulation. She notes she has been anemic for 6 years and thinks she has chronic intermittent bleeding from the angioectasias. The patient unfortunately has a history of vascular disease status post bilateral common iliac artery and angioplasty and stenting. She also had a deep venous thrombosis (DVT) of the left lower extremity and was anticoagulated on warfarin until her admission for GI Bleeding March 2017. OTHER PAST MEDICAL HISTORY: Hypertension. Hyperlipidemia. Type 2 diabetes. COPD. PAST SURGICAL HISTORY: Tonsillectomy. Bilateral common iliac artery angioplasty stenting. EGDs and colonoscopies as above. ERCP as above. Right-sided axillofemoral and [id number] fem/fem bypass undetermined date. FAMILY HISTORY: Father with a history of coronary artery disease. Mother with a history of lung cancer. He has a sister with a history of lung cancer. Brother had amyotrophic lateral sclerosis (ALS). REVIEW OF SYSTEMS: No abdominal pain, hematemesis, chest pain, she has been dizzy, weak and has not been able to get out of bed. No fever, chills, night sweats. ALLERGIES: No known drug allergies. MEDICATIONS: - amlodipine 5 mg daily - atorvastatin 40 mg daily - clopidogrel 75 mg daily - glimepiride 2 mg twice a day - losartan 50 mg daily - metformin 1000 mg twice a day - Protonix 40 mg twice a day - Januvia 50 mg daily - Spiriva one inhalation daily PHYSICAL EXAMINATION: Blood pressure 127/62, pulse 90, respiratory rate 18, 97% oxygen saturation. General appearance: Elderly, resting comfortably in no distress. Pupils equal, round, and reactive to light. TMs and oropharynx benign. Neck: There is no masses. Heart regular rate and rhythm. 16 systolic ejection murmur. Lung exam showed bilateral dry-sounding rales. Sounding more like fibrosis than fluid. Abdomen: Soft. Nontender. No masses. Extremities: No clubbing, cyanosis or edema. Decrease pulses in the feet still palpable. Neuro: Arms and legs with equal strength. The rest of the exam nonfocal. LABS: White count 72, hemoglobin 6.9, (baseline hemoglobin 11), platelets 420. PT/PTT normal. Sodium 139, potassium 4.2, BUN 12, creatinine 0.7, glucose 152. Stool exam positive in the emergency room. IMPRESSION: 1. Acute blood loss anemia secondary to presumed upper GI bleeding. Patient will be admitted to the progressive care unit (PCU) bed. She has been type and crossed despite being transfused in the emergency room. Will transfused two units packed red blood cells. She is on a Protonix drip. There is no GI coverage, currently. Dr. Reed was contacted by the emergency room and agrees to see the patient in consultation. Will enter a formal consult, which has been communicated to him. Will hold Plavix for now. 2. Diabetes: Hold her glimepiride. Fingerstick blood sugar with sliding scale every 6 hours. 3. Hypertensive heart disease: To continue amlodipine. Hold her losartan for now. 4. 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 She has significant pulmonary fibrosis at that time, which I think is what we hear on exam. I do not think clinically, she is in any failure. Continue her Spiriva. 5. Hyperlipidemia: Continue atorvastatin 40 mg daily. Patient is admitted to the hospitalist group. They will be determining the rounding provider for tomorrow.
[2018-07-06 13:03] VITALS: BP 130/66
[2018-07-06] MEDS: HumaLOG INSULIN (NovoLOG) PER UNIT SC SCH ×2 (13:53→17:48)
[2018-07-06] MEDS: amLODIPine 5 MG TAB PO SCH (14:01)
[2018-07-06 14:11] LABS: HEMATOCRIT 26.9 % (36.0-47.0); HEMOGLOBIN 8.2 g/dl (12.0-15.5); MEAN CORPUSCULAR HEMOGLOBIN 26.2 pg (27.0-33.0); MEAN CORPUSCULAR HGB CONC 30.5 g/dl (32.0-36.5); MEAN CORPUSCULAR VOLUME 85.9 fl (80.0-96.0); PLATELET COUNT, AUTOMATED 356 10^3/uL (150-450); RED BLOOD COUNT 3.13 10^6/uL (4.00-5.40); WHITE BLOOD COUNT 7.2 10^3/uL (4.0-10.0)
[2018-07-06 16:00] VITALS: BP 136/67
--- NOTE | 2018-07-06 18:16 | IPN ---
DATE: 07/06/2018 She has been transfused two units. Her hemoglobin is up to 8.2. Vital signs remains stable. Case was discussed with both Dr. Reed and Dr. Santoyo. The patient knows Dr. Santoyo and underwent an argon photocoagulation over a year ago for angioectasia of the duodenum. Dr. Santoyo will not be available until . Dr. Reed is consulted if we need gastroenterology intervention before then. Hopefully, she remains stable and we will wait until and see whether she needs repeat argon plasma coagulation (APC) therapy.
[2018-07-06 20:00] VITALS: BP 148/66
[2018-07-06 20:14] LABS: HEMATOCRIT 29.4 % (36.0-47.0); HEMOGLOBIN 9.3 g/dl (12.0-15.5); MEAN CORPUSCULAR HGB CONC 31.6 g/dl (32.0-36.5); MEAN CORPUSCULAR VOLUME 82.1 fl (80.0-96.0); PLATELET COUNT, AUTOMATED 349 10^3/uL (150-450); RED BLOOD COUNT 3.58 10^6/uL (4.00-5.40); WHITE BLOOD COUNT 7.4 10^3/uL (4.0-10.0)
[2018-07-06] MEDS: ATORVASTATIN 20 MG TAB PO SCH (20:45)
--- NOTE | 2018-07-06 22:33 | CR ---
DATE OF CONSULTATION: 07/06/2018 REASON FOR CONSULTATION: Marked anemia secondary to gastrointestinal (GI) bleed. HISTORY OF PRESENT ILLNESS: The patient is a 78-year-old woman with a long history of anemia. In 2018, she was found to have multiple angioectasias in the duodenum while undergoing evaluation for some anemia. She had undergone argon plasma coagulation of multiple small lesions in the duodenum by Dr. Santoyo at that time. A colonoscopy was also done, which showed some diverticulosis but he did not feel that this was the source for her bleeding. He had indicated that he felt it was very likely that she had other additional vascular lesions in the more distal portions of the small bowel that were not accessible to treatment. He felt that she was a poor candidate for anticoagulation long-term. She presented today having been seen by her primary physician on Friday with findings of some anemia. She was advised to come to the hospital on Friday, which she did. Her labs showed her to have a hemoglobin of 6.9 with a hematocrit of 23.6. Apparently, she also had a stool guaiac test in the emergency department that was positive. She was admitted by the hospitalist service for management of her anemia. Her underwriting support specialist, Dr. Santoyo, is not available to see her at this time and I was consulted to see the patient regarding her gastrointestinal (GI) bleed. MEDICATIONS ON ADMISSION INCLUDED: - amlodipine 5 mg by mouth daily - atorvastatin 40 mg by mouth at bedtime (q.h.s.) - clopidogrel 75 mg by mouth daily at noon - glimepiride's 2 mg by mouth twice daily - losartan 50 mg by mouth daily at noon - metformin 1 gram by mouth twice daily - pantoprazole 40 mg by mouth twice daily - sitagliptin 50 mg by mouth daily - Spiriva one capsule inhaled daily ALLERGIES: There are no reported drug allergies. PAST SURGICAL HISTORY: The patient has undergone surgery for bilateral cataracts. She has previously undergone a cholecystectomy, but last year was admitted with cholangitis and underwent endoscopic retrograde cholangiopancreatography (ERCP) with placement of a biliary stent as a papillotomy would have been quite risky in the estimation of the underwriting support specialist. Her surgical history also includes previous bilateral common iliac artery angioplasties and stenting, but she subsequently had undergone a right axillobifemoral bypass. In early 2017, she suffered an occlusion of the fem-fem portion of her axillobifemoral and was admitted by Dr. Martin for thrombolysis of the occlusion, which was successful. Medical history is significant for diabetes mellitus type 2. She has hypertension and hypercholesterolemia. She has chronic lung disease associated with a long smoking history. She has had a previous lower extremity deep vein thrombosis. She has known atherosclerotic peripheral vascular disease. SOCIAL HISTORY: The patient is a former smoker who quit within the last two years. She denies any significant alcohol use. FAMILY HISTORY: Her father apparently had significant coronary artery disease and her mother had lung cancer. REVIEW OF SYSTEMS: She denies any chest pain or palpitations. She denies any dysuria or hematuria. She has had regular bowel movements and has been eating. She is not having any ischemic pain in her lower extremities. She denies any history of TIAs stroke or seizure. She has felt quite tired and lightheaded at times. PHYSICAL EXAMINATION: The patient is lying quietly in the hospital bed. She is alert and oriented currently. Skin is warm and dry. Heart exam shows a regular rate and rhythm. The lungs are clear to auscultation bilaterally. Abdomen is flat and soft. She has active bowel sounds. Extremities are without edema. Laboratory studies today include a white count of 7.1 with a hemoglobin of 6.9 and a hematocrit of 23.6 and a platelet count of 420,000 at time of her presentation. Since then, she has had two repeat complete blood counts (CBCs) with the most recent at 194 showing a hemoglobin of 9 and a hematocrit of 29 following transfusion of 2 units of packed red blood cells. Her chemistry profile this morning showed a sodium of 139, potassium 4.2, chloride 108, CO2 of 27, BUN of 12, creatinine 0.78 and a glucose of 152. Her liver function tests were normal. Total protein is 7.1 with an albumin of 3.5. Lipase was normal and her lactic acid was normal at 1.6. Her PT/INR and PTT were all normal. Abdominal x-ray was performed as was a chest x-ray. The abdominal x-ray shows her biliary stent in place in the right mid to upper abdomen. There is some air seen in the biliary tree. She has bilateral iliac stents in place. She has what appears to be a large amount of stool within the colon throughout. She has a number of clips in both groins. Her chest x-ray shows what appears to be some hyperexpansion of the lungs. A left upper lobe lung nodule was noted and a chest CT was recommended. IMPRESSION: 1. Anemia likely secondary to vascular anomalies of the bowel mucosa. 2. Atherosclerotic peripheral vascular disease status post axillary bifemoral bypass. 3. Chronic obstructive pulmonary disease 4. Hypertension. 5. Diabetes mellitus. 6. Hyperlipidemia. 7. Left upper lobe lung nodule. 8. Chronic biliary stent. RECOMMENDATIONS: I would recommend proceeding as has begun with transfusion to a safe hematocrit level. She had undergone previous argon plasma coagulation of some duodenal lesions, though the underwriting support specialist felt at that time that she likely has additional lesions that are not accessible to endoscopic treatment. She is certainly not bleeding briskly at this time, as her hematocrit is increasing appropriately with transfusion. She was noted on chest x-ray on admission to have a nodule in the left upper lobe and certainly a follow-up CT scan to assess this lesion would be prudent, as she would certainly be considered at risk for lung cancer. She has been asking me if she could eat or drink and I see no reason we could not let her have some clear liquids at this time, as an endoscopic exam is not imminent. MATTIE
[2018-07-06 23:59] VITALS: BP 147/67
[2018-07-07] MEDS: PANTOPRAZOLE SODIUM 40 MG in D5W 50 ML IV SCH ×2 (00:58→05:32)
[2018-07-07 01:45] LABS: HEMOGLOBIN 9.2 g/dl (12.0-15.5); MEAN CORPUSCULAR HEMOGLOBIN 26.1 pg (27.0-33.0); MEAN CORPUSCULAR HGB CONC 31.7 g/dl (32.0-36.5); MEAN CORPUSCULAR VOLUME 82.4 fl (80.0-96.0); PLATELET COUNT, AUTOMATED 330 10^3/uL (150-450); RED BLOOD COUNT 3.52 10^6/uL (4.00-5.40); WHITE BLOOD COUNT 7.8 10^3/uL (4.0-10.0)
[2018-07-07] MEDS: NS 1,000 ML IV SCH ×2 (03:13→08:34)
[2018-07-07 04:00] VITALS: BP 136/67
[2018-07-07] MEDS: HumaLOG INSULIN (NovoLOG) PER UNIT SC SCH ×4 (05:32→21:00)
[2018-07-07 05:38] LABS: HEMATOCRIT 28.3 % (36.0-47.0); HEMOGLOBIN 8.9 g/dl (12.0-15.5); MEAN CORPUSCULAR HEMOGLOBIN 25.6 pg (27.0-33.0); MEAN CORPUSCULAR HGB CONC 31.4 g/dl (32.0-36.5); MEAN CORPUSCULAR VOLUME 81.6 fl (80.0-96.0); PLATELET COUNT, AUTOMATED 327 10^3/uL (150-450); RED BLOOD COUNT 3.47 10^6/uL (4.00-5.40); WHITE BLOOD COUNT 6.7 10^3/uL (4.0-10.0)
[2018-07-07 05:53] LABS: BLOOD UREA NITROGEN 9 MG/DL (7-18); CALCIUM LEVEL 7.8 MG/DL (8.8-10.2); CARBON DIOXIDE LEVEL 26 MEQ/L (21-32); CHLORIDE LEVEL 108 MEQ/L (98-107); CREATININE FOR GFR 0.67 MG/DL (0.55-1.30); GLOMERULAR FILTRATION RATE > 60.0 (>39); GLUCOSE, FASTING 110 MG/DL (70-100); POTASSIUM SERUM 3.7 MEQ/L (3.5-5.1); SODIUM LEVEL 140 MEQ/L (136-145)
[2018-07-07] MEDS: TIOTROPIUM INHALER/CAPSULE (SPIRIVA) INH SCH (07:29)
[2018-07-07 08:00] VITALS: BP 129/67
[2018-07-07] MEDS: PANTOPRAZOLE 40MG INJ (PROTONIX) (C9113) IV SCH ×2 (08:34→21:17)
--- NOTE | 2018-07-07 08:50 | IPNPDOC ---
Text Note Date of Service The patient was seen on 07/07/18. NOTE Subjective: Patient seen and examined at bedside. No acute overnight events reported. Patient has no new medical complaints. She would like to resume her diet. No bowel movements. Objective: General: NAD, lying comfortably in bed, somewhat disheveled, slightly hard of hearing HEENT: NC/AT, EOMI, PERRL Lungs: CTA B/L Heart: +S1S2, RRR Abd: soft, +BS, +mid-epigastric tenderness Ext: no edema A/P: # ABLA/UGIB - Hx multiple chronic duodenal angioectasia - s/p 2U PRBC - transition to protonix IV BID - start CLD - d/w surgery - assistance appreciated - Plavix on hold # syncope/near syncope - no further symptoms - no arrhythmia's noted on tele - likely secondary to anemia - continue to monitor # lung nodule - active smoker - family history of lung CA - will need surveillance as outpatient - d/w patient # DM - ISS # Hypertensive heart disease - continue amlodipine - Losartan on hold # COPD with pulmonary fibrosis - continue her Spiriva. # Hyperlipidemia - continue statin therapy #PVD - s/p b/l common iliac artery stents, right-sided axillofemoral and right-to- left fem/fem bypass Dispo: advance diet, transition from protonix infusion to IV, monitor H/H, s urgery follow up VS,Patrickbone, I+O VS, Fishbone, I+O Laboratory Tests 07/06/18 09:21 Red Blood Count 2.84 L, Mean Corpuscular Volume 83.1, Mean Corpuscular Hemoglobin 24.3 L, Mean Corpuscular Hemoglobin Concent 29.2 L, Red Cell Distribution Width 15.9 H, Neutrophils (%) (Auto) 80.4 H, Lymphocytes (%) (Auto) 7.9 L, Monocytes (%) (Auto) 9.1 H, Eosinophils (%) (Auto) 1.4, Basophils (%) (Auto) 0.8, Neutrophils # (Auto) 5.7, Lymphocytes # (Auto) 0.6 L, Monocytes # (Auto) 0.7, Eosinophils # (Auto) 0.1, Basophils # (Auto) 0.1 07/06/18 13:55 Red Blood Count 3.13 L, Mean Corpuscular Volume 85.9, Mean Corpuscular Hemoglobin 26.2 L, Mean Corpuscular Hemoglobin Concent 30.5 L, Red Cell Distribution Width 15.8 H 07/06/18 19:41 Red Blood Count 3.58 L, Mean Corpuscular Volume 82.1, Mean Corpuscular Hemoglobin 26.0 L, Mean Corpuscular Hemoglobin Concent 31.6 L, Red Cell Distribution Width 15.3 H 07/07/18 01:39 Red Blood Count 3.52 L, Mean Corpuscular Volume 82.4, Mean Corpuscular Hemoglo bin 26.1 L, Mean Corpuscular Hemoglobin Concent 31.7 L, Red Cell Distribution Width 15.6 H 07/07/18 05:15 Red Blood Count 3.47 L, Mean Corpuscular Volume 81.6, Mean Corpuscular Hemoglobin 25.6 L, Mean Corpuscular Hemoglobin Concent 31.4 L, Red Cell Distribution Width 15.8 H, Calcium Level 7.8 L Vital Signs Date Time Temp Pulse Resp B/P (MAP) Pulse Ox O2 Delivery O2 Flow Rate FiO2 07/07/18 08:00 97.6 81 18 129/67 (87) 92 07/06/18 12:54 Room Air I&O- Last 24 Hours up to 6 AM 07/07/18 06:00 Intake Total 2756 ml Output Total 400 ml Balance 2356 ml MAURO TAO MD Jul 07, 2018 08:50
[2018-07-07 12:00] VITALS: BP 145/67
[2018-07-07] MEDS: amLODIPine 5 MG TAB PO SCH (13:22)
[2018-07-07 16:00] VITALS: BP 133/62
[2018-07-07] MEDS ORDERED: HumaLOG INSULIN (NovoLOG) PER UNIT SC SCH (17:30)
[2018-07-07 18:10] LABS: HEMATOCRIT 30.7 % (36.0-47.0); HEMOGLOBIN 9.6 g/dl (12.0-15.5)
[2018-07-07 20:00] VITALS: BP 150/67
--- NOTE | 2018-07-07 21:14 | ECGEPIP ---
Stationary ECG Study [facility] - ED Test Date: 2018-07-06 Pat Name: SHRUTI TUCKER Department: Room: - Gender: [id number] Operator: : [id number] Requested By: Ulises Lilly Order Number: [id number] Reading MD: Tere Odell Measurements Intervals Seth Rate: 82 P: 69 IN: 143 QRS: 34 QRSD: 90 T: 57 QT: 375 QTc: 441 Interpretive Statements SINUS RHYTHM NSTTW ABNORMALITY DECREASED RATE 06/25/17 Electronically Signed On 07-07-2018 21:14:07 EDT by Tere Odell
[2018-07-07] MEDS: ATORVASTATIN 20 MG TAB PO SCH (21:17)
[2018-07-07 23:00] VITALS: BP 133/65
[2018-07-08 04:00] VITALS: BP 133/63
[2018-07-08] MEDS: NS 1,000 ML IV SCH (04:10)
[2018-07-08 05:40] LABS: HEMATOCRIT 29.4 % (36.0-47.0); HEMOGLOBIN 9.3 g/dl (12.0-15.5); MEAN CORPUSCULAR HEMOGLOBIN 26.1 pg (27.0-33.0); MEAN CORPUSCULAR HGB CONC 31.6 g/dl (32.0-36.5); MEAN CORPUSCULAR VOLUME 82.4 fl (80.0-96.0); PLATELET COUNT, AUTOMATED 305 10^3/uL (150-450); RED BLOOD COUNT 3.57 10^6/uL (4.00-5.40); WHITE BLOOD COUNT 6.8 10^3/uL (4.0-10.0)
[2018-07-08 06:02] LABS: BLOOD UREA NITROGEN 5 MG/DL (7-18); CALCIUM LEVEL 7.7 MG/DL (8.8-10.2); CARBON DIOXIDE LEVEL 26 MEQ/L (21-32); CHLORIDE LEVEL 111 MEQ/L (98-107); CREATININE FOR GFR 0.66 MG/DL (0.55-1.30); GLOMERULAR FILTRATION RATE > 60.0 (>39); GLUCOSE, FASTING 128 MG/DL (70-100); POTASSIUM SERUM 3.5 MEQ/L (3.5-5.1); SODIUM LEVEL 142 MEQ/L (136-145)
[2018-07-08 07:39] VITALS: BP 120/87
[2018-07-08] MEDS: TIOTROPIUM INHALER/CAPSULE (SPIRIVA) INH SCH (07:44)
[2018-07-08] MEDS: PANTOPRAZOLE 40MG INJ (PROTONIX) (C9113) IV SCH (08:13)
[2018-07-08] MEDS: HumaLOG INSULIN (NovoLOG) PER UNIT SC SCH ×4 (08:14→20:16)
--- NOTE | 2018-07-08 08:41 | IPNPDOC ---
Text Note Date of Service The patient was seen on 07/08/18. NOTE Subjective: Patient seen and examined at bedside. No acute overnight events reported. Patient has no new medical complaints. She would like to resume her diet. No bowel movements. Objective: General: NAD, lying comfortably in bed, somewhat disheveled, slightly hard of hearing HEENT: NC/AT, EOMI, PERRL Lungs: CTA B/L Heart: +S1S2, RRR Abd: soft, +BS, +mid-epigastric tenderness Ext: no edema A/P: # ABLA/UGIB - Hx multiple chronic duodenal angioectasia - s/p 2U PRBC - transition to protonix PO BID - advance diet - d/w surgery - assistance appreciated - Plavix on hold # syncope/near syncope - no further symptoms - no arrhythmia's noted on tele - likely secondary to anemia - continue to monitor # lung nodule - active smoker - family history of lung CA - will need surveillance as outpatient - d/w patient # DM - ISS # Hypertensive heart disease - continue amlodipine - Losartan on hold # COPD with pulmonary fibrosis - continue her Spiriva. # Hyperlipidemia - continue statin therapy #PVD - s/p b/l common iliac artery stents, right-sided axillofemoral and rig ht-to-left fem/fem bypass Dispo: advance diet, transition to PO protonix, monitor H/H, surgery follow up; transfer to floor, d/c tele VS,Alo, I+O VS, Fishbone, I+O Laboratory Tests 07/07/18 17:59 07/08/18 05:17 Red Blood Count 3.57 L, Mean Corpuscular Volume 82.4, Mean Corpuscular Hemoglobin 26.1 L, Mean Corpuscular Hemoglobin Concent 31.6 L, Red Cell Distribution Width 15.9 H, Calcium Level 7.7 L Vital Signs Date Time Temp Pulse Resp B/P (MAP) Pulse Ox O2 Delivery O2 Flow Rate FiO2 07/08/18 07:39 97.5 77 18 120/87 (98) 95 07/06/18 12:54 Room Air I&O- Last 24 Hours up to 6 AM 07/08/18 06:00 Intake Total 3485 ml Output Total 1450 ml Balance 2035 ml MAURO TAO MD Jul 08, 2018 08:41
[2018-07-08 09:50] VITALS: BP 142/56
[2018-07-08] MEDS: amLODIPine 5 MG TAB PO SCH (12:19)
[2018-07-08 14:00] VITALS: BP 142/80
[2018-07-08 18:25] LABS: HEMOGLOBIN 9.4 g/dl (12.0-15.5)
--- NOTE | 2018-07-08 19:01 | CR ---
DATE OF CONSULTATION: 07/08/2018 Inpatient. REASON FOR CONSULTATION: Symptomatic anemia, GI bleeding heme-positive stools. HISTORY OF PRESENT ILLNESS: Debby Hale is a patient well known to me from previous admissions to the hospital. She mainly has a history of small bowel angio ectasias and has been chronically anemic from those in face of antiplatelet medication use for her extensive vascular disease. She also has a indwelling biliary wall stent in place for previous choledocholithiasis. She is a very poor operative candidate due to her antiplatelet medication need and overall general medical condition. The family and the patient chose not to proceed with cholecystectomy. She subsequently had a biliary stent placed by myself and this has managed her biliary colic quite well so far. The patient presents with weakness, fatigue and near syncope from her primary care doctor's office. She was found to be severely anemic. She apparently refused Transfusions as an outpatient but did present to the emergency room. PAST MEDICAL HISTORY: Diabetes, gastroesophageal reflux, hypertension, history of DVT, history of severe extensive peripheral vascular disease, history of iron deficiency anemia, history of small bowel angio ectasias. SURGICAL HISTORY: Axial bifem bypass, EGD with the APC of duodenal AVMs 04/22/2017, colonoscopy negative for bleeding source on 04/23/2017, ERCP for common bile duct stones ascending cholangitis where she had a covered 10 mm x 4 cm wall stent placed in the common bile duct. PHYSICAL EXAMINATION: Vital signs: Temperature 98, pulse 81, respiratory 20, blood pressure 142/80, pulse ox 97% on room air. General: She is awake, alert and oriented times 3 in no acute distress. She is status post transfusion with appropriate elevation of her hemoglobin. Head, eyes, ears, nose and throat are grossly without abnormality. She is mildly pale. Neck is supple. No lymphadenopathy, thyromegaly. Chest is coarse, distant breath sounds with occasional scattered wheezing. No rhonchi or crackles are appreciated. Abdomen is soft, nontender. Good bowel sounds. No masses felt. Extremities: Negative for edema. LABORATORY FINDINGS: Hemoglobin 6.9 pre transfusion on 07/06/2018. It is currently 9.30. MCV is 82.4, BUN 5, creatinine 0.66. IMPRESSION: 1. 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 Bleeding magnified due to anticoagulants / antiplatelet use. 2. Severe peripheral vascular disease. 3. Choledocholithiasis and gallstones in gallbladder - this is managed well at this time with a common bile duct stent in place (10 mm covered wall stent). RECOMMENDATIONS: 1. Continue to hold Plavix for 4-5 days at which time we will do an EGD with plasma coagulation of any additional vascular ectasias that have likely developed. 2. Her biliary stent may continue to stay in place to manage and avoid future common bile duct obstruction due to known stones in her gallbladder and common bile duct. I again understand the patient is not willing to undergo cholecystectomy and due to anatomic reasons removal of stones from the bile duct would be quite risky due to presence of papilla within a diverticulum. She would likely need an open procedure with common bile duct exploration. DISCUSSION: I again discussed her issues with her daughter today. I was able to get a firm and a definite answer on when her last Plavix dose was and this was on Friday. She did not take her Plavix on Friday and therefore I would be comfortable with doing her endoscopic ablation of vascular ectasias on Friday. Briefly also discussed with them that this could theoretically also be done as an outpatient however, they were very hesitant and unwilling to take her home to bring her back at a later date. Therefore I think we all agreed to proceed with this procedure on Friday. MATTIE
[2018-07-08] MEDS: ATORVASTATIN 20 MG TAB PO SCH (20:16)
[2018-07-08] MEDS: PANTOPRAZOLE 40MG TAB (PROTONIX) PO SCH (20:16)
[2018-07-08 22:00] VITALS: BP 138/65
--- NOTE | 2018-07-09 03:38 | IPN ---
DATE: 07/08/2018 HISTORY: The patient was admitted on July 06 with marked anemia felt to be related to a gastrointestinal bleed. She received 2 units of packed red blood cells with adequate increase in her hematocrit to approximately 30. VITAL SIGNS: Show that she has been afebrile for the past 24 hours. Her pulse is in the 70s generally and her blood pressure is good. Room air oxygen saturations are normal. Intake and output show that yesterday she had 3900 in with 1350 recorded out. PHYSICAL EXAMINATION: The patient is alert and oriented and feeling good. She denies any pain. She has been tolerating a regular diet. Heart exam shows a regular rhythm. The lungs are clear. The abdomen shows active bowel sounds. The abdomen is soft and without any significant tenderness. Laboratory studies show a complete blood count (CBC) with a white count of 7, hemoglobin of 9, hematocrit of 29 and platelet count of 305,000. Chemistry profile today shows a sodium of 142, potassium 3.5, chloride 111, CO2 of 26, BUN of 5, creatinine 0.66 and glucose of 128. IMPRESSION: The patient's hemoglobin and hematocrit have remained stable since receiving 2 units of packed red blood cells on the . She denies any obvious rectal bleeding. She is tolerating a regular diet and denies any pain. PLAN: The patient was advised that she should continue the regular diet. She is clearly not having any active bleeding as her hematocrit has remained stable. I advised that I would have no objection to her being discharged tomorrow and she reported that this is the tentative plan apparently with the hospitalist. She should certainly be monitored regarding her hemoglobin and hematocrit. She may well require additional endoscopic exam as followup to see if she has persisting vascular lesions of the small bowel mucosa that might be amendable to coagulation. MATTIE
[2018-07-09 06:00] VITALS: BP 124/66
[2018-07-09 06:01] LABS: HEMATOCRIT 28.8 % (36.0-47.0); HEMOGLOBIN 9.1 g/dl (12.0-15.5); MEAN CORPUSCULAR HEMOGLOBIN 26.2 pg (27.0-33.0); MEAN CORPUSCULAR HGB CONC 31.6 g/dl (32.0-36.5); PLATELET COUNT, AUTOMATED 296 10^3/uL (150-450); RED BLOOD COUNT 3.47 10^6/uL (4.00-5.40)
[2018-07-09 06:29] LABS: BLOOD UREA NITROGEN 11 MG/DL (7-18); CALCIUM LEVEL 7.8 MG/DL (8.8-10.2); CARBON DIOXIDE LEVEL 25 MEQ/L (21-32); CHLORIDE LEVEL 111 MEQ/L (98-107); CREATININE FOR GFR 0.73 MG/DL (0.55-1.30); GLOMERULAR FILTRATION RATE > 60.0 (>39); GLUCOSE, FASTING 165 MG/DL (70-100); POTASSIUM SERUM 3.8 MEQ/L (3.5-5.1); SODIUM LEVEL 141 MEQ/L (136-145)
[2018-07-09] MEDS: TIOTROPIUM INHALER/CAPSULE (SPIRIVA) INH SCH (07:41)
[2018-07-09] MEDS: HumaLOG INSULIN (NovoLOG) PER UNIT SC SCH ×4 (08:31→21:00)
[2018-07-09] MEDS: PANTOPRAZOLE 40MG TAB (PROTONIX) PO SCH ×2 (08:31→21:15)
--- NOTE | 2018-07-09 10:37 | IPNPDOC ---
Text Note Date of Service The patient was seen on 07/09/18. NOTE Subjective: Patient seen and examined at bedside. No acute overnight events reported. Patient has no new medical complaints. She is tolerating her diet. Objective: General: NAD, lying comfortably in bed, somewhat disheveled, slightly hard of hearing HEENT: NC/AT, EOMI, PERRL Lungs: CTA B/L Heart: +S1S2, RRR Abd: soft, +BS, +mid-epigastric tenderness Ext: no edema A/P: # ABLA/UGIB - Hx multiple chronic duodenal angioectasia - s/p 2U PRBC - protonix PO BID - d/w surgery - assistance appreciated - Plavix on hold - d/w GI - plan for upper endoscopy tomorrow # syncope/near syncope - no further symptoms - no arrhythmia's noted on tele - likely secondary to anemia - continue to monitor # lung nodule - active smoker - family history of lung CA - will need surveillance as outpatient - d/w patient # DM - ISS # Hypertensive heart disease - continue amlodipine - Losartan on hold # COPD with pulmonary fibrosis - continue her Spiriva. # Hyperlipidemia - continue statin therapy #PVD - s/p b/l common iliac artery stents, right-sided axillofemoral and rqged-oq-qkww fem/fem bypass Dispo: plan for upper endo tomorrow with GI VS,Fishbone, I+O VS, Fishbone, I+O Laboratory Tests 07/08/18 17:55 07/09/18 05:36 Red Blood Count 3.47 L, Mean Corpuscular Volume 83.0, Mean Corpuscular Hemoglobin 26.2 L, Mean Corpuscular Hemoglobin Concent 31.6 L, Red Cell Distribution Width 16.3 H, Calcium Level 7.8 L Vital Signs Date Time Temp Pulse Resp B/P (MAP) Pulse Ox O2 Delivery O2 Flow Rate FiO2 07/09/18 06:00 98.4 81 20 124/66 (85) 96 07/06/18 12:54 Room Air I&O- Last 24 Hours up to 6 AM 07/09/18 06:00 Intake Total 1130 ml Output Total 750 ml Balance 380 ml MAURO TAO MD Jul 09, 2018 10:37
[2018-07-09] MEDS: amLODIPine 5 MG TAB PO SCH (13:30)
[2018-07-09 14:00] VITALS: BP 130/50
[2018-07-09] MEDS: ATORVASTATIN 20 MG TAB PO SCH (21:15)
[2018-07-09 22:00] VITALS: BP 133/63
[2018-07-10] VITALS (8 sets, daily range): BP systolic 125–177; BP diastolic 59–77
[2018-07-10 06:01] LABS: HEMATOCRIT 29.4 % (36.0-47.0); HEMOGLOBIN 9.1 g/dl (12.0-15.5); MEAN CORPUSCULAR HEMOGLOBIN 25.7 pg (27.0-33.0); MEAN CORPUSCULAR VOLUME 83.1 fl (80.0-96.0); PLATELET COUNT, AUTOMATED 259 10^3/uL (150-450); RED BLOOD COUNT 3.54 10^6/uL (4.00-5.40); WHITE BLOOD COUNT 7.6 10^3/uL (4.0-10.0)
[2018-07-10 06:29] LABS: BLOOD UREA NITROGEN 9 MG/DL (7-18); CARBON DIOXIDE LEVEL 26 MEQ/L (21-32); CHLORIDE LEVEL 110 MEQ/L (98-107); CREATININE FOR GFR 0.73 MG/DL (0.55-1.30); GLOMERULAR FILTRATION RATE > 60.0 (>39); GLUCOSE, FASTING 155 MG/DL (70-100); POTASSIUM SERUM 3.7 MEQ/L (3.5-5.1); SODIUM LEVEL 142 MEQ/L (136-145)
[2018-07-10] MEDS: HumaLOG INSULIN (NovoLOG) PER UNIT SC SCH ×4 (07:30→21:15)
[2018-07-10] MEDS: PANTOPRAZOLE 40MG TAB (PROTONIX) PO SCH ×2 (07:46→20:12)
[2018-07-10] MEDS: TIOTROPIUM INHALER/CAPSULE (SPIRIVA) INH SCH (08:13)
--- NOTE | 2018-07-10 10:10 | IPNPDOC ---
Text Note Date of Service The patient was seen on 07/10/18. NOTE Subjective: Patient seen and examined at bedside. No acute overnight events reported. Patient has no new medical complaints. She is tolerating her diet. Objective: General: NAD, lying comfortably in bed, somewhat disheveled, hard of hearing HEENT: NC/AT, EOMI, PERRL Lungs: CTA B/L Heart: +S1S2, RRR Abd: soft, +BS, +mid-epigastric tenderness Ext: no edema A/P: # ABLA/UGIB - Hx multiple chronic duodenal angioectasia - s/p 2U PRBC - protonix PO BID - d/w surgery - assistance appreciated - Plavix on hold - NPO for upper endoscopy today # syncope/near syncope - no further symptoms - no arrhythmia's noted on tele - likely secondary to anemia - continue to monitor # lung nodule - active smoker - family history of lung CA - will need surveillance as outpatient - d/w patient # DM - ISS # Hypertensive heart disease - continue amlodipine - Losartan on hold # COPD with pulmonary fibrosis - continue her Spiriva. # Hyperlipidemia - continue statin therapy #PVD - s/p b/l common iliac artery stents, right-sided axillofemoral and eywmw-fl-vuya fem/fem bypass Dispo: NPO for upper endo today, scheduled at 2pm with Dr Santoyo; further dispo pending results of procedure VS,Fishbone, I+O VS, Fishbone, I+O Laboratory Tests 07/10/18 05:41 Red Blood Count 3.54 L, Mean Corpuscular Volume 83.1, Mean Corpuscular Hemoglobin 25.7 L, Mean Corpuscular Hemoglobin Concent 31.0 L, Red Cell Distribution Width 16.3 H, Calcium Level 8.0 L Vital Signs Date Time Temp Pulse Resp B/P (MAP) Pulse Ox O2 Delivery O2 Flow Rate FiO2 07/10/18 06:00 97.0 72 18 132/60 (84) 97 07/06/18 12:54 Room Air I&O- Last 24 Hours up to 6 AM 07/10/18 06:00 Intake Total 1800 ml Output Total 775 ml Balance 1025 ml MAURO TAO MD Jul 10, 2018 10:10
[2018-07-10] MEDS: amLODIPine 5 MG TAB PO SCH (13:06)
[2018-07-10] MEDS ORDERED: PROPOFOL 200 MG/20 ML VIAL As Ordered ONE ×2 (15:49→15:51)
[2018-07-10] MEDS ORDERED: fentaNYL 100 MCG/2 ML INJECTION (J3010) As Ordered ONE (15:50)
[2018-07-10] MEDS ORDERED: LIDOCAINE 2% INJ 100 MG/5 ML SDV (FOR ANES.) As Ordered ONE (16:02)
[2018-07-10] MEDS ORDERED: ePHEDrine SULFATE 25 MG/5 ML(5MG/ML) SYRINGE As Ordered ONE (16:20)
--- NOTE | 2018-07-10 16:35 | ROOR ---
Patient Name: Debby Hale Procedure Date: 07/10/2018 7:27 AM Date of : 1940 Age: 78 Room: [facility] Gender: Female Note Status: Finalized Procedure: Upper GI endoscopy Indications: Iron deficiency anemia secondary to chronic blood loss Providers: Vik WIN MD Referring MD: 2. Inpatient 2. Inpatient Requesting Provider: Medicines: Monitored Anesthesia Care Complications: No immediate complications. Procedure: Pre-Anesthesia Assessment: - The heart rate, respiratory rate, oxygen saturations, blood pressure, adequacy of pulmonary ventilation, and response to care were monitored throughout the procedure. The Endoscope was introduced through the mouth, and advanced to the third part of duodenum. The upper GI endoscopy was accomplished without difficulty. The patient tolerated the procedure well. Findings: The examined esophagus was normal. Small Hiatal Hernia. Three diminutive no bleeding angioectasias were found in the gastric body and in the gastric antrum. Coagulation for bleeding prevention using argon beam at 0.8 liters/minute and 20 plaza was successful. The exam of the stomach was otherwise normal. A few diminutive angioectasias without bleeding were found in the first portion of the duodenum, in the second portion of the duodenum and in the third portion of the duodenum. Coagulation for bleeding prevention using argon beam at 0.8 liters/minute and 20 plaza was successful. A medium diverticulum was found in the second portion of the duodenum and in the third portion of the duodenum. A previously placed biliary stent was seen in the area of the papilla. Impression: - Three non-bleeding angioectasias in the stomach. Treated with argon beam coagulation. - A few non-bleeding angioectasias in the duodenum. Treated with argon beam coagulation. - Small Hiatal Hernia. - Duodenal diverticulum. - Patent biliary stent in the duodenum. - No specimens collected. Recommendation: - Observe patient's clinical course. - I anticipate no further need for intervention. Vik Win MD Vik WIN MD 07/10/2018 4:35:14 PM Electronically signed by Vik WIN MD Number of Addenda: 0 Note Initiated On: 07/10/2018 7:27 AM Estimated Blood Loss: Estimated blood loss: none.
[2018-07-10] MEDS: ATORVASTATIN 20 MG TAB PO SCH (20:13)
[2018-07-11 02:00] VITALS: BP 126/59
[2018-07-11 06:00] VITALS: BP 110/61
[2018-07-11 06:54] LABS: BLOOD UREA NITROGEN 10 MG/DL (7-18); CALCIUM LEVEL 7.6 MG/DL (8.8-10.2); CARBON DIOXIDE LEVEL 25 MEQ/L (21-32); CHLORIDE LEVEL 109 MEQ/L (98-107); CREATININE FOR GFR 0.67 MG/DL (0.55-1.30); GLOMERULAR FILTRATION RATE > 60.0 (>39); GLUCOSE, FASTING 156 MG/DL (70-100); POTASSIUM SERUM 3.8 MEQ/L (3.5-5.1); SODIUM LEVEL 141 MEQ/L (136-145)
[2018-07-11] MEDS: PANTOPRAZOLE 40MG TAB (PROTONIX) PO SCH (07:39)
[2018-07-11] MEDS: HumaLOG INSULIN (NovoLOG) PER UNIT SC SCH ×2 (07:40→12:09)
[2018-07-11 07:47] LABS: HEMATOCRIT 29.5 % (36.0-47.0); HEMOGLOBIN 9.1 g/dl (12.0-15.5); MEAN CORPUSCULAR HEMOGLOBIN 25.9 pg (27.0-33.0); MEAN CORPUSCULAR HGB CONC 30.8 g/dl (32.0-36.5); PLATELET COUNT, AUTOMATED 255 10^3/uL (150-450); RED BLOOD COUNT 3.51 10^6/uL (4.00-5.40); WHITE BLOOD COUNT 8.4 10^3/uL (4.0-10.0)
[2018-07-11] MEDS: TIOTROPIUM INHALER/CAPSULE (SPIRIVA) INH SCH (08:16)
[2018-07-11] MEDS ORDERED: MOM 30ML SUSPENSION UDC PO ONE (09:00)
[2018-07-11 10:00] VITALS: BP 130/60
[2018-07-11 12:09] VITALS: BP 159/69
[2018-07-11] MEDS: amLODIPine 5 MG TAB PO SCH (12:09)
--- NOTE | 2018-08-08 22:24 | DS.PDOC ---
Discharge Summary General Date of Admission Jul 06, 2018 at 11:39 Date of Discharge July 11, 2018 Specialist/Consultants Involve: Wan Reed Specialist/Consultants Involve Dr. Santoyo Discharge Summary PROCEDURES PERFORMED DURING STAY: Colonoscopy, argon beam coagulation DISCHARGE DIAGNOSES: #non-bleeding angioectasias in the stomach s/p argon beam coagulation. #non-bleeding angioectasias in the duodenum s/p argon beam coagulation # Hiatal Hernia # Duodenal diverticulum # Patent biliary stent in the duodenum # ABLA/UGIB - s/p 2U PRBC # syncope/near syncope # lung nodule - active smoker, family history of lung CA SECONDARY DIAGNOSES: #Hypertension/hypertensive heart disease #Hyperlipidemia. #Type 2 diabetes. #COPD/pulmonary fibrosis? #PVD - s/p Bilateral common iliac artery angioplasty stenting, right-sided axillofemoral and efqvc-ct-[id number] fem/fem bypass undetermined date. #GI bleed s/p EGDs and colonoscopies and ERCPs COMPLICATIONS/CHIEF COMPLAINT: Acute Blood Loss Anemia Gastrointestinal Bleed. HISTORY OF PRESENT ILLNESS: Carolynn Hale is a 78-year-old female, with most of her history provided by her daughter, who apparently had a syncopal or near syncopal episode in the office. Labs were drawn and patient was told to return to the office today to review these. She has been in bed all weekend, too weak and tired and dizzy to get out of bed. Finally, family brought her to the emergency room where she was found to have a hemoglobin of 6.9. She has heme positive black stools per emergency room evaluation. She is followed by Dr. Vik Santoyo. She had an ERCP done June 2017 when she had the cholangitis and required a biliary stent. She has had upper GI bleeds in the past. She has had lower GI bleeding as well. On 03/26/2017, she had a colonoscopy, which just showed some small polyps. She had an esophagogastroduodenoscopy (EGD) on 04/22/2017 that showed multiple (more than 10) small angioectasia of the duodenum treated with argon-beam coagulation. She notes she has been anemic for 6 years and thinks she has chronic intermittent bleeding from the angioectasias. The patient unfortunately has a history of vascular disease status post bilateral common iliac artery and angioplasty and stenting. She also had a deep venous thrombosis (DVT) of the left lower extremity and was anticoagulated on warfarin until her admission for GI Bleeding March 2017. HOSPITAL COURSE: She was admitted for further evaluation and treatment, and seen inconsultation by surgery and gastroenterology. She was found to be anemic secondary to acute blood loss, and received 2 units PRBC. She underwent a colon oscopy with argon beam coagulation during her hospital stay. She was found to have a lung nodule, is an active smoker, which will need further outpatient follow up. Deemed stable for discharge by GI with recommendations for outpatient follow up. DISCHARGE MEDICATIONS: Please see below. ALLERGIES: Please see below. LABORATORY DATA: Please see below. PROGNOSIS: Guarded ACTIVITY: [As tolerated]. DISPOSITION: Home, Self-Care. DISCHARGE INSTRUCTIONS: 1. Follow up PCP in 3-5 days. 2. Follow up GI as scheduled. ITEMS TO FOLLOWUP ON ON OUTPATIENT: 1. Follow up lung nodule. 2. Follow up hemoglobin/hematocrit. DISCHARGE CONDITION: [Stable]. TIME SPENT ON DISCHARGE: Greater than 30 minutes. Discharge Medications Scheduled Amlodipine Besylate (Amlodipine Besylate) 5 Mg Tablet, 5 MG PO DAILY, (Reported) TAKES AT NOON Atorvastatin Calcium (Atorvastatin Calcium) 40 Mg Tab, 40 MG PO QHS, (Reported) Clopidogrel Bisulfate (Clopidogrel) 75 Mg Tablet, 75 MG PO DAILY Ferrous Sulfate (Ferrous Sulfate) 325 Mg Tablet, 325 MG PO BID, (Reported) Glimepiride (Glimepiride) 2 Mg Tablet, 2 MG PO BID, (Reported) Losartan Potassium (Losartan Potassium) 50 Mg Tablet, 50 MG PO DAILY, (Reported) TAKES AT NOON Metformin HCl (Metformin HCl ER) 500 Mg Tab.er.24h, 1,000 MG PO BID, (Reported) Pantoprazole Sodium (Protonix) 40 Mg Tab, 40 MG PO BID, (Reported) Sitagliptin (Januvia) 50 Mg Tab, 50 MG PO DAILY, (Reported) Sucralfate (Sucralfate) 1 Gm Tablet, 1 GM PO Q6H Tiotropium [place] (Spiriva) 18 Mcg Cap, 1 CAP INH DAILY, (Reported) Allergies Coded Allergies: No Known Allergies (Verified , 02/24/06) MAURO TAO MD August 08, 2018 22:24
== END 2018-07-11 13:07 | disposition home or self-care (01) | DRG 378 ==
LOC: EDBD 08:54 → M ED 08:54 → M ED INP 11:39 → M PCU 13:03 → M MSPAV 07-08 09:46
PROVIDERS: ADMIT Family Medicine; ATTEND Internal Medicine
PROC: 30233N1 Transfusion of Nonautologous Red Blood Cells into Peripheral Vein, Percutaneous Approach (ICD-10-PCS; principal; 2018-07-06)
PROC: 0W3P8ZZ Control Bleeding in Gastrointestinal Tract, Via Natural or Artificial Opening Endoscopic (ICD-10-PCS; 2018-07-10)
DX: K92.2 Gastrointestinal hemorrhage, unspecified (principal); D62 Acute posthemorrhagic anemia; K44.9 Diaphragmatic hernia without obstruction or gangrene; R91.1 Solitary pulmonary nodule; R55 Syncope and collapse; E11.9 Type 2 diabetes mellitus without complications; E78.5 Hyperlipidemia, unspecified; I70.209 Unspecified atherosclerosis of native arteries of extremities, unspecified extremity; J44.9 Chronic obstructive pulmonary disease, unspecified; K31.819 Angiodysplasia of stomach and duodenum without bleeding; Z79.899 Other long term (current) drug therapy; I11.9 Hypertensive heart disease without heart failure; F17.200 Nicotine dependence, unspecified, uncomplicated; K80.70 Calculus of gallbladder and bile duct without cholecystitis without obstruction

== ENCOUNTER 2018-07-21 08:57 | Emergency (ER) | payer MEDICARE ==
[~2018-07-21] VITALS: Ht 170.2 cm; Wt 54.5 kg
[~2018-07-21 08:57] MED LIST changes: +AMLO5TAB6 PO; +GLIM2TAB PO; +LOSA50TA88 PO
[2018-07-21 09:35] LABS: BASO # 0.1 10^3/uL (0.0-0.2); EOS # 0.1 10^3/uL (0.0-0.50); EOS % 1.3 % (0.0-3.0); HEMATOCRIT 32.9 % (36.0-47.0); LYMPH # 0.6 10^3/uL (1.5-4.5); LYMPH % 6.8 % (24.0-44.0); MEAN CORPUSCULAR HEMOGLOBIN 25.8 pg (27.0-33.0); MEAN CORPUSCULAR HGB CONC 30.4 g/dl (32.0-36.5); MONO # 0.8 10^3/uL (0.0-0.8); MONO % 8.5 % (0.0-5.0); NEUTROPHILS # 7.8 10^3/uL (1.8-7.7); PLATELET COUNT, AUTOMATED 765 10^3/uL (150-450); RED BLOOD COUNT 3.87 10^6/uL (4.00-5.40); WHITE BLOOD COUNT 9.4 10^3/uL (4.0-10.0)
[2018-07-21 09:58] LABS: BLOOD UREA NITROGEN 10 MG/DL (7-18); CARBON DIOXIDE LEVEL 28 MEQ/L (21-32); CHLORIDE LEVEL 107 MEQ/L (98-107); CREATININE FOR GFR 0.65 MG/DL (0.55-1.30); GLOMERULAR FILTRATION RATE > 60.0 (>39); GLUCOSE, FASTING 133 MG/DL (70-100); POTASSIUM SERUM 4.9 MEQ/L (3.5-5.1); SODIUM LEVEL 139 MEQ/L (136-145)
[2018-07-21 09:59] LABS: C REACTIVE PROTEIN QUANTITATIV < 0.30 MG/DL (0.00-0.30); CALCIUM LEVEL 8.7 MG/DL (8.8-10.2)
[2018-07-21] MEDS ORDERED: ACETAMINOPHEN TAB 650MG DOSE (2X325MG) PO ONE (10:00)
[2018-07-21 10:10] LABS: ERYTHROCYTE SEDIMENTATION RATE 43 mm/hr (0-30)
--- NOTE | 2018-07-21 11:01 | REP ---
Left lower extremity duplex veins History: Leg pain Comparison: 12/19/2014 There are no filling defects in the deep venous system. The deep venous system is patent. Impression: There is no deep venous thrombosis. Electronically Signed by Gatito Velarde MD 07/21/2018 10:52 A
[2018-07-21 11:16] VITALS: BP 146/67
== END 2018-07-21 11:40 | disposition home or self-care (01) ==
LOC: M ED 08:57
DX: M79.662 Pain in left lower leg (principal)

== ENCOUNTER 2018-07-28 06:42 | Inpatient (IN) | payer BC, MEDICARE ==
[~2018-07-28] VITALS: Ht 170.2 cm; Wt 59.1 kg
[2018-07-28] VITALS (15 sets, daily range): BP systolic 110–166; BP diastolic 53–75
[2018-07-28] MEDS ORDERED: PROTAMINE SULF INJ 50 MG/5 ML VIAL (J2720) As Ordered ONE (07:04)
[2018-07-28] MEDS ORDERED: diphenhydrAMINE INJ 50MG/ML VIAL (J1200) As Ordered ONE (07:04)
[2018-07-28] MEDS ORDERED: MIDAZOLAM INJ 2 MG/2 ML VIAL (J2250) As Ordered ONE ×2 (07:05→08:59)
[2018-07-28] MEDS ORDERED: fentaNYL 100 MCG/2 ML INJECTION (J3010) As Ordered ONE ×2 (07:05→08:59)
[2018-07-28] MEDS ORDERED: BUPIVACAINE HCL 0.5% 10 ML VIAL As Ordered ONE (07:05)
[2018-07-28] MEDS ORDERED: LIDOCAINE 2% MDV 20 ML VIAL As Ordered ONE (07:06)
[2018-07-28] MEDS ORDERED: ISOVUE-300 61% 100ML VIAL (Q9967) As Ordered ONE (07:06)
[2018-07-28] MEDS ORDERED: HEPARIN 1,000 UNITS/ML 10ML VIAL (FOR RADIOLOGY& DIALYSIS ONLY) As Ordered ONE (07:06)
[2018-07-28] MEDS ORDERED: HEPARIN 25,000 UNITS/250 ML D5W BAG (100 UNITS/ML) As Ordered ONE (08:15)
[2018-07-28] MEDS ORDERED: ALTEPLASE 2 MG/2 ML VIAL (J2997 PER 1MG) As Ordered ONE (08:17)
[2018-07-28] MEDS ORDERED: HEPARIN SOD (PORCINE) 5000 UNITS/ML VIAL SQ ONE (08:30)
[2018-07-28] MEDS: ALTEPLASE RECOMBINANT 25 MG in NS 225 ML IV SCH (09:00)
[2018-07-28] MEDS ORDERED: ALTEPLASE RECOMBINANT 10 MG in APPROPRIATE DILUENT 1 EA IV ONE (09:00)
[2018-07-28] MEDS: HEPARIN DRIP 25,000 UNITS in APPROPRIATE DILUENT 1 EA IV SCH (09:00)
[2018-07-28] MEDS: NS 1,000 ML IV SCH ×2 (10:04→19:34)
--- NOTE | 2018-07-28 10:06 | HPEPDOC ---
[facility] Medical History & Physical Date of Admission July 28, 2018 History and Physical ATTENDING: Dr. Martin PCP: Dr Hull CC: LLE pain HPI: 78yoF with a past medical history significant for recent admission for UGIB, EGD 07/10/18 Three non-bleeding angioectasias in the stomach. Treated with argon beam coagulation. A few non-bleeding angioectasias in the duodenum. Treated with argon beam coagulation. Patent biliary stent. Plavix was d/cd at that time. Pt presents today related to LLE pain for LE angiogram with Dr Martin. Denies any fevers, chills, weakness, fatigue, BOOKER, CP, SOB, cough, palpitations, abdominal pain, N/V/D or changes in bowel or bladder habits. PAST MEDICAL HISTORY: Hypertension. Hyperlipidemia. Type 2 diabetes. COPD. ERCP June 2017 cholangitis/biliary stent. H/O upper and lower GI bleed. EGD on 04/22/2017 that showed multiple (more than 10) small angioectasia of the duodenum treated with argon-beam coagulation. Recent admission for UGIB, EGD 07/10/18 Three non-bleeding angioectasias in the stomach. Treated with argon beam coagulation. A few non-bleeding angioectasias in the duodenum. Treated with argon beam coagulation. Patent biliary stent. chronic anemia history of vascular disease status post bilateral common iliac artery and angioplasty and stenting. H/O DVT of the left lower extremity and was anticoagulated on warfarin until her admission for GI Bleeding March 2017. PAST SURGICAL HISTORY: Tonsillectomy. Bilateral common iliac artery angioplasty stenting. EGDs and colonoscopies. 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 Treated with argon beam coagulation. A few non-bleeding angioectasias in the duodenum. Treated with argon beam coagulation. Patent biliary stent. ERCP as above. Right-sided axillofemoral and awvkd-vw-xkrk fem/fem bypass undetermined date. FAMILY HISTORY: Father with a history of coronary artery disease. Mother with a history of lung cancer. He has a sister with a history of lung cancer. Brother had amyotrophic lateral sclerosis (ALS). SOCHX: Resides in: [facility] Marital Status: Tobacco use: denies ETOH: denies Illicit Drugs: Denies ROS: As noted in HPI, otherwise 11pt ROS of systems reviewed and unremarkable. PE: GEN: 78yoF, appears stated age. No acute distress. Alert and oriented x 3. HEENT: Normocephalic, atraumatic. No facial asymmetry. Moist mucous membranes. CHEST: Regular rate and rhythm, +S1, +S2 LUNGS: Clear to auscultation bilaterally. No wheezes, rales, or rhonchi. Breathing appears symmetric and easy. ABD: Round, soft, non-tender, non-distended. SKIN: No rashes. NEURO: Alert and oriented x 3. No focal deficits appreciated. Admission labs pending. LE angiogram as per Dr Martin today report pending. 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 A&P: 78yoF with a past medical history significant for recent admission for UGIB, EGD 07/10 Three non-bleeding angioectasias in the stomach. Treated with argon beam coagulation. A few non-bleeding angioectasias in the duodenum. Treated with argon beam coagulation. Patent biliary stent. Plavix was d/cd at that time. Pt presents today related to LLE pain for LE angiogram with Dr Martin. 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 The patient will be admitted to ICU for at least [address] Martin's service. 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 Angiogram today as per Dr Martin. S/P arthrectomy of fem-fem limb, s/p ballooning. Thrombolysis initiated per protocol. IVF at 60cc/hr. Pt remains high bleeding risk which was discussed with the pt and the pt's grand dtr as per Dr Martin. s/p Right-sided axillofemoral and cbmjb-cs-bjcn fem/fem bypass. Plavix has been held since recent GIB 07/10. H/O upper and lower GI bleed. EGD on 04/22/2017 that showed multiple (more than 10) small angioectasia of the duodenum treated with argon-beam coagulation. Recent admission for UGIB, EGD 07/10 Three non-bleeding angioectasias in the stomach. Treated with argon beam coagulation. A few non-bleeding angioectasias in the duodenum. Treated with argon beam coagulation. Patent biliary stent. Followed by Dr Santoyo. Plavix was d/cd at that time. Continue PPI IV Carafate added. chronic anemia. labs pending. Monitor for bleeding. H/H Q6 hrs. Monitor need for transfusion. Hypertension. Amlodipine/losartan as outpt. Hyperlipidemia. Statin Type 2 diabetes. Hold po meds. Pt NPO. SSI. COPD. O2 as needed. Laboratory Data Labs 24H admission labs pending. most recent 07/21/18 Vital Signs Label Value Date Time Patient Temperature 96.5 degrees F 07/21/18 1116 Temperature Source Oral 07/21/18 1116 Pulse 83 07/21/18 1116 Respiratory Rate 20 bpm 07/21/18 1116 Blood Pressure Assessment 146/67 (93) 07/21/18 1116 Bedside Pulse Oximetry 96 % 07/21/18 1116 Item Value Date Time Oxygen Delivery Method Room Air 07/21/18 1116 White Blood Count 9.4 10^3/uL 07/21/18 0929 Red Blood Count 3.87 10^6/uL L 07/21/18 0929 Hemoglobin 10.0 g/dl L 07/21/18 0929 Hematocrit 32.9 % L 07/21/18 0929 Mean Corpuscular Volume 85.0 fl 07/21/18 0929 Mean Corpuscular Hemoglobin 25.8 pg L 07/21/18 0929 Mean Corpuscular Hemoglobin Concent 30.4 g/dl L 07/21/18 0929 Red Cell Distribution Width 17.7 % H 07/21/18 0929 Platelet Count 765 10^3/uL H 07/21/18 0929 Sodium Level 139 MEQ/L 07/21/18 0929 Potassium Level 4.9 MEQ/L 07/21/18 0929 Chloride Level 107 MEQ/L 07/21/18 0929 Carbon Dioxide Level 28 MEQ/L 07/21/18 0929 Anion Gap 4 MEQ/L L 07/21/18 0929 Blood Urea Nitrogen 10 MG/DL 07/21/18 0929 Creatinine 0.65 MG/DL 07/21/18 0929 Glomerular Filtration Rate > 60.0 07/21/18 0929 Fasting Glucose 133 MG/DL H 07/21/18 0929 Calcium Level 8.7 MG/DL L 4/30/19 0929 Activated Partial Thromboplast Time 27.5 SECONDS 07/21/18 09 Home Medications Scheduled Amlodipine Besylate (Amlodipine Besylate) 5 Mg Tablet, 5 MG PO DAILY TAKES AT NOON Atorvastatin Calcium (Atorvastatin Calcium) 40 Mg Tab, 40 MG PO QHS Glimepiride (Glimepiride) 2 Mg Tablet, 2 MG PO BID Losartan Potassium (Losartan Potassium) 50 Mg Tablet, 50 MG PO DAILY TAKES AT NOON Metformin HCl (Metformin ER Osmotic) 1,000 Mg Tab, 1,000 MG PO BID Pantoprazole Sodium (Protonix) 40 Mg Tab, 40 MG PO BID Sitagliptin (Januvia) 50 Mg Tab, 50 MG PO DAILY Tiotropium [place] (Spiriva) 18 Mcg Cap, 1 CAP INH DAILY Allergies Coded Allergies: No Known Allergies (Verified , 02/24/06) A-FIB/CHADSVASC A-FIB History Current/History of A-Fib/PAF?: No Sunshine Allsion July 28, 2018 09:46
[2018-07-28] MEDS ORDERED: ONDANSETRON 4MG/2ML VIAL (J2405) IV PRN (10:15)
[2018-07-28] MEDS ORDERED: NORCO, ANEXSIA 5/325MG TABLET (HYDROcodone/ACETAMINOPHEN) PO PRN (10:45)
[2018-07-28 10:59] LABS: BASO # 0.1 10^3/uL (0.0-0.2); BASO % 0.7 % (0.0-1.0); EOS # 0.1 10^3/uL (0.0-0.50); HEMATOCRIT 33.7 % (36.0-47.0); LYMPH % 9.3 % (24.0-44.0); MEAN CORPUSCULAR HEMOGLOBIN 25.8 pg (27.0-33.0); MEAN CORPUSCULAR HGB CONC 29.7 g/dl (32.0-36.5); MEAN CORPUSCULAR VOLUME 87.1 fl (80.0-96.0); MONO # 0.6 10^3/uL (0.0-0.8); MONO % 5.4 % (0.0-5.0); NEUTROPHILS # 8.8 10^3/uL (1.8-7.7); NEUTROPHILS % 82.8 % (36.0-66.0); PLATELET COUNT, AUTOMATED 594 10^3/uL (150-450); RED BLOOD COUNT 3.87 10^6/uL (4.00-5.40); WHITE BLOOD COUNT 10.6 10^3/uL (4.0-10.0)
[2018-07-28 11:08] LABS: INR 1.02; PROTHROMBIN TIME 13.5 SECONDS (12.1-14.4)
[2018-07-28 11:10] LABS: PARTIAL THROMBOPLASTIN TIME 64.1 SECONDS (25.4-37.6)
[2018-07-28] MEDS ORDERED: METF500T4 PO (11:15)
[2018-07-28] MEDS ORDERED: FERR1TAB8 PO (11:15)
[2018-07-28] MEDS ORDERED: ASPI-161 PO (11:15)
[2018-07-28 11:21] LABS: ALBUMIN 2.8 GM/DL (3.2-5.2); ALT/SGPT 17 U/L (12-78); BILIRUBIN,TOTAL 0.4 MG/DL (0.2-1.0); BLOOD UREA NITROGEN 13 MG/DL (7-18); CARBON DIOXIDE LEVEL 24 MEQ/L (21-32); CHLORIDE LEVEL 111 MEQ/L (98-107); CREATININE FOR GFR 0.63 MG/DL (0.55-1.30); GLOMERULAR FILTRATION RATE > 60.0 (>39); GLUCOSE, FASTING 145 MG/DL (70-100); POTASSIUM SERUM 3.9 MEQ/L (3.5-5.1); SODIUM LEVEL 142 MEQ/L (136-145); TOTAL PROTEIN 6.8 GM/DL (6.4-8.2)
[2018-07-28] MEDS: SUCRALFATE 1 GM TAB PO SCH ×2 (11:38→17:33)
[2018-07-28] MEDS: PANTOPRAZOLE 40MG INJ (PROTONIX) (C9113) IV SCH ×2 (11:38→20:22)
[2018-07-28] MEDS ORDERED: SODIUM CHLORIDE 0.9% INJ 10 ML SYR IV PRN (12:15)
[2018-07-28] MEDS ORDERED: diphenhydrAMINE INJ 50MG/ML VIAL (J1200) IV PRN (13:15)
[2018-07-28] MEDS ORDERED: EPIDURAL/PCA KEYS XX PRN (13:15)
[2018-07-28] MEDS ORDERED: NALBUPHINE HCL 10 MG/ML AMP (J2300) IV PRN (13:15)
[2018-07-28] MEDS ORDERED: NALOXONE INJ 0.4 MG/1 ML VIAL (J2310) IV PRN (13:15)
[2018-07-28] MEDS: MORPHINE 1MG/ML IN 0.9% NACL 100ML IV BAG IV PRN (13:48)
[2018-07-28 14:05] LABS: PHOSPHORUS LEVEL 3.2 MG/DL (2.5-4.9)
[2018-07-28] MEDS ORDERED: GLUCAGON FOR INJ 1 MG VIAL (J1610) SC PRN (15:45)
[2018-07-28] MEDS ORDERED: DEXTROSE 50% 50 ML SYRINGE IV PRN (15:45)
[2018-07-28] MEDS ORDERED: GLUCOSE 4 GM CHEW TABLET PO PRN (15:45)
[2018-07-28] MEDS ORDERED: NICOTINE 14 MG/24 HR TRANSDERMAL TD PRN (16:15)
--- NOTE | 2018-07-28 16:46 | CR ---
DATE OF CONSULTATION: 07/28/2018 REFERRING PHYSICIAN: Vascular Surgery, Dr. Martin REASON FOR CONSULTATION: Medical management. HISTORY OF THE PRESENT ILLNESS: The patient is a 78-year-old female with a past medical history significant for chronic tobacco abuse, hypertension, dyslipidemia, type 2 diabetes, chronic obstructive pulmonary disease (COPD), history of gastrointestinal (GI) bleed, left lower extremity deep vein thrombosis (DVT), peripheral vascular disease, came to [facility] for left lower extremity pain. Patient started having left lower extremity pain for the past few days. Patient also noted to have increased numbness at the left lower extremity toes. Patient also noted to have skin color change of the left foot. Patient was brought to the fluoroscopy suite by Dr. Martin for the angiogram and patient had tPA and heparin started for cross femoral limb occlusion. Patient has a history of bilateral common iliac artery angioplasty and stenting, history of right-sided axillofemoral and vssul-um-xkuz femoral bypass. Previously the patient had a history of left lower extremity DVT, on warfarin; warfarin was discontinued due to GI bleed. Previously the patient had a biliary stent, on Plavix; however, Plavix discontinued due to history of GI bleed. Upper GI bleed occurred July 10, 2018. PAST MEDICAL HISTORY: Hypertension. Dyslipidemia. Type 2 diabetes. Chronic obstructive pulmonary disease (COPD). History of upper and lower GI bleed. History of vascular disease, status post bilateral common iliac artery angioplasty and stenting. Left lower extremity DVT. PAST SURGICAL HISTORY: Tonsillectomy. Bilateral common iliac artery angioplasty stenting. Right-sided axillofemoral and erapj-ka-hogt femoral bypass. SOCIAL HISTORY: Currently the patient admits smoking at least half a pack daily. The patient has been smoking for 60 years. Denied alcohol use. Denied recreational drug use. REVIEW OF SYSTEMS; GENERAL: No fever, no chills. HEENT: No vision change. No auditory changes. CARDIOVASCULAR: No chest pain. No palpitations. RESPIRATORY: No shortness of breath, no cough, no sputum production. GASTROINTESTINAL: No nausea, no vomiting, no abdominal pain, no diarrhea. MUSCULOSKELETAL: Complains about left lower extremity burning-type of pain. Originally she had left toe numbness; however, it has improved since admission. Denies any lower extremity swelling. NEUROLOGICAL: The left foot numbness and tingling has been improving. OBJECTIVE: VITAL SIGNS: Temperature 98.2, Pulse 82, BP 156/62, respirations 18, pulse oximetry 100% in room air. GENERAL: Mild distress secondary to persistent left lower extremity pain. HEENT: Normocephalic, atraumatic. Extraocular motor grossly intact. CARDIOVASCULAR: Positive S1, S2, regular rate. LUNGS: Diminished breath sounds. No symptoms of wheezes or rhonchi. ABDOMEN: Soft, nontender, nondistended. Bowel sounds present. EXTREMITIES: Tenderness to palpation of the left lower extremity. No significant edema appreciated. Cold left foot and left hand. Redness and discoloration of the left toes. NEUROLOGICAL: Sensation to fine touch grossly intact. Muscle strength 5/5. LABORATORY DATA: WBC 10.6, hemoglobin 10, hematocrit 33.7, platelet count is 594. Sodium is 142, potassium 3.9, chloride is 111, carbon dioxide 24, BUN 13, creatinine 0.63, GFR greater than 60, fasting glucose 145, calcium is 8, magnesium 2, total bilirubin is 0.4, AST 19, ALT is 17, alkaline phosphatase 114, total protein 6.8, albumin 2.8. ASSESSMENT AND PLAN: 1. Left lower extremity limb ischemia, secondary to cross femoral limb occlusion. Patient was in the fluoroscopy suite with Dr. Martin. Angiogram was performed. Patient is currently receiving tPA and heparin through the catheter. Continue to observe the patient. Patient may be back to the fluoroscopy suite tomorrow for reevaluation. The patient did have a history of GI bleed. Patient was on Coumadin previously for left lower extremity DVT, patient was on Plavix previously and both have been on hold. Will continue to monitor any signs of bleeding. 2. Severe peripheral vascular disease. The patient had a history of right-sided axillofemoral and heakv-es-hxmt femoral bypass. Currently the patient is being treated for the femoral limb occlusion. The patient is an active smoker. Smoking cessation was discussed with the patient. Patient is currently nothing by mouth (n.p.o.). 3. Chronic obstructive pulmonary disease. No sign of exacerbation at this moment. Continue to monitor. 4. Diabetes. IV fluid support. Follow with insulin every 6 hours. 5. History of upper and lower GI bleed. In the past, the patient was on Coumadin for DVT, patient was on Plavix for the stent - both have been held due to GI bleed in the past. Patient is currently receiving tPA and heparin. Continue monitor for any signs of active bleeding. Follow with hemoglobin and hematocrit. 6. History of DVT of the left lower extremity. Patient is currently on heparin. 7. Dyslipidemia. Medication on hold due to nothing by mouth. Will resume the statin when it is appropriate. 8. Tobacco abuse. Patient has more than 60 years smoking; currently patient smokes half a pack daily. Smoking cessation discussed with the patient. 9. DVT prophylaxis. Currently patient is on a heparin drip. [facility]
[2018-07-28] MEDS: HumaLOG INSULIN (NovoLOG) PER UNIT SC SCH (17:33)
[2018-07-28] MEDS: SODIUM CHLORIDE 0.9% INJ 10 ML SYR IV SCH (17:33)
[2018-07-28 17:37] LABS: HEMATOCRIT 30.5 % (36.0-47.0); HEMOGLOBIN 9.2 g/dl (12.0-15.5)
[2018-07-28 17:53] LABS: INR 1.17; PROTHROMBIN TIME 15.1 SECONDS (12.1-14.4)
[2018-07-28] MEDS: FERROUS SULFATE 325MG TAB PO SCH (20:22)
[2018-07-28] MEDS: ATORVASTATIN 20 MG TAB PO SCH (20:22)
[2018-07-28] MEDS ORDERED: metFORMIN XR 500MG TAB *GLUCOPHAGE XR PO SCH (21:00)
[2018-07-29] VITALS (18 sets, daily range): BP systolic 111–158; BP diastolic 54–68
[2018-07-29 00:27] LABS: HEMATOCRIT 29.5 % (36.0-47.0); HEMOGLOBIN 8.9 g/dl (12.0-15.5)
[2018-07-29] MEDS: SUCRALFATE 1 GM TAB PO SCH ×5 (00:49→23:24)
[2018-07-29] MEDS: SODIUM CHLORIDE 0.9% INJ 10 ML SYR IV SCH ×2 (05:06→17:27)
[2018-07-29] MEDS: HumaLOG INSULIN (NovoLOG) PER UNIT SC SCH ×5 (05:07→20:12)
[2018-07-29 05:32] LABS: BASO % 0.4 % (0.0-1.0); EOS # 0.1 10^3/uL (0.0-0.50); EOS % 1.4 % (0.0-3.0); HEMATOCRIT 30.4 % (36.0-47.0); LYMPH # 0.9 10^3/uL (1.5-4.5); LYMPH % 9.5 % (24.0-44.0); MEAN CORPUSCULAR HEMOGLOBIN 26.8 pg (27.0-33.0); MEAN CORPUSCULAR HGB CONC 29.6 g/dl (32.0-36.5); MEAN CORPUSCULAR VOLUME 90.5 fl (80.0-96.0); MONO # 1.2 10^3/uL (0.0-0.8); MONO % 12.6 % (0.0-5.0); NEUTROPHILS # 6.9 10^3/uL (1.8-7.7); NEUTROPHILS % 75.7 % (36.0-66.0); RED BLOOD COUNT 3.36 10^6/uL (4.00-5.40); WHITE BLOOD COUNT 9.1 10^3/uL (4.0-10.0)
[2018-07-29 05:38] LABS: PLATELET COUNT, AUTOMATED 369 10^3/uL (150-450)
[2018-07-29 05:53] LABS: ALBUMIN 2.6 GM/DL (3.2-5.2); ALT/SGPT 16 U/L (12-78); BILIRUBIN,TOTAL 0.3 MG/DL (0.2-1.0); BLOOD UREA NITROGEN 11 MG/DL (7-18); CALCIUM LEVEL 7.6 MG/DL (8.8-10.2); CARBON DIOXIDE LEVEL 23 MEQ/L (21-32); CHLORIDE LEVEL 113 MEQ/L (98-107); CREATININE FOR GFR 0.55 MG/DL (0.55-1.30); GLOMERULAR FILTRATION RATE > 60.0 (>39); GLUCOSE, FASTING 111 MG/DL (70-100); POTASSIUM SERUM 3.7 MEQ/L (3.5-5.1); SODIUM LEVEL 140 MEQ/L (136-145); TOTAL PROTEIN 5.6 GM/DL (6.4-8.2)
[2018-07-29 05:56] LABS: PARTIAL THROMBOPLASTIN TIME 29.5 SECONDS (25.4-37.6)
[2018-07-29] MEDS: PANTOPRAZOLE 40MG INJ (PROTONIX) (C9113) IV SCH ×2 (08:38→20:11)
[2018-07-29] MEDS: TIOTROPIUM INHALER/CAPSULE (SPIRIVA) INH SCH (09:00)
[2018-07-29] MEDS: FERROUS SULFATE 325MG TAB PO SCH ×2 (09:00→20:12)
[2018-07-29] MEDS: ALTEPLASE RECOMBINANT 25 MG in NS 225 ML IV SCH ×2 (09:23→14:39)
[2018-07-29 11:16] LABS: HEMATOCRIT 28.1 % (36.0-47.0); HEMOGLOBIN 8.4 g/dl (12.0-15.5)
[2018-07-29] MEDS ORDERED: diphenhydrAMINE INJ 50MG/ML VIAL (J1200) As Ordered ONE (12:22)
[2018-07-29] MEDS ORDERED: fentaNYL 100 MCG/2 ML INJECTION (J3010) As Ordered ONE (12:22)
[2018-07-29] MEDS ORDERED: MIDAZOLAM INJ 2 MG/2 ML VIAL (J2250) As Ordered ONE (12:23)
[2018-07-29] MEDS ORDERED: ISOVUE-300 61% 100ML VIAL (Q9967) As Ordered ONE (12:23)
[2018-07-29] MEDS ORDERED: BUPIVACAINE HCL 0.5% 10 ML VIAL As Ordered ONE (12:24)
[2018-07-29] MEDS ORDERED: LIDOCAINE 2% MDV 20 ML VIAL As Ordered ONE (12:24)
--- NOTE | 2018-07-29 13:06 | IPNPDOC ---
Date Seen The patient was seen on 07/29/18. Progress Note ATTENDING: Dr. Martin PCP: Dr Hull CC: LLE pain HPI: [id number] with a past medical history significant for recent admission for UGIB, EGD 07/10/18 Three non-bleeding angioectasias in the stomach. Treated with argon beam coagulation. A few non-bleeding angioectasias in the duodenum. Treated with argon beam coagulation. Patent biliary stent. Plavix was d/cd at that time. Pt presented 07/28/18 related to LLE pain for LE angiogram with Dr Martin. 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 Pt with h/o Right-sided axillofemoral and gvbdb-qp-wbco fem/fem bypass. Pt denies any bleeding. denies pain currently. No concerns this AM. Hospitalist is assisting with medical mgmt. Denies any fevers, chills, weakness, fatigue, BOOKER, CP, SOB, cough, palpitations, abdominal pain, N/V/D or changes in bowel or bladder habits. PAST MEDICAL HISTORY: Hypertension. Hyperlipidemia. Type 2 diabetes. COPD. ERCP June 2017 cholangitis/biliary stent. H/O upper and lower GI bleed. EGD on 04/22/2017 that showed multiple (more than 10) small angioectasia of the duodenum treated with argon-beam coagulation. Recent admission for UGIB, EGD 07/10/18 Three non-bleeding angioectasias in the stomach. Treated with argon beam coagulation. A few non-bleeding angioectasias in the duodenum. Treated with argon beam coagulation. Patent biliary stent. chronic anemia Pt with history of vascular disease status post bilateral common iliac artery and angioplasty and stenting as well as Right-sided axillofemoral and nsnhz-kb-nwom fem/fem bypass. H/O DVT of the left lower extremity and was anticoagulated on warfarin until her admission for GI Bleeding March 2017. PAST SURGICAL HISTORY: Tonsillectomy. Bilateral common iliac artery angioplasty stenting. Right-sided axillofemoral and [id number]-[id number] fem/fem bypass undetermined date. EGDs and colonoscopies. 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 Treated with argon beam coagulation. A few non-bleeding angioectasias in the duodenum. Treated with argon beam coagulation. Patent biliary stent. ERCP as above. PE: GEN: [id number], appears stated age. No acute distress. Alert and oriented x 3. HEENT: Normocephalic, atraumatic. No facial asymmetry. Moist mucous membranes. CHEST: Regular rate and rhythm, +S1, +S2 LUNGS: Clear to auscultation bilaterally. No wheezes, rales, or rhonchi. Breathing appears symmetric and easy. ABD: Round, soft, non-tender, non-distended. SKIN: No rashes. Left foot toes are cool to touch. palpable pulses RLE, LLE non palpable and not able to obtain at time of exam with doppler. NEURO: Alert and oriented x 3. No focal deficits appreciated. LE angiogram as per Dr Martin 07/28/18 report pending. (pt s/p Right-sided axillofemoral and lapkj-qq-qdyl fem/fem bypass)Preliminary finding indicates cross femoral limb occulsion with critical ischemia LLE. A&P: [id number] with a past medical history significant for recent admission for UGIB, EGD 07/10 Three non-bleeding angioectasias in the stomach. Treated with argon beam coagulation. A few non-bleeding angioectasias in the duodenum. Treated with argon beam coagulation. Patent biliary stent. Plavix was d/cd at that time. Pt presents today related to LLE pain for LE angiogram with Dr Martin. 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 The patient will be admitted to ICU for at least [address] Martin's service. 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 Angiogram 07/28/[address] Martin. S/P arthrectomy of fem-fem limb, s/p ballooning. Plan for Angiogram again today as per Dr Martin. Thrombolysis per protocol. IVF at 60cc/hr. Pt remains high bleeding risk which was discussed with the pt and the pt's grand dtr as per Dr Martin. s/p Right-sided axillofemoral and aqzqy-oq-umtu fem/fem bypass. Plavix has been held since recent GIB 07/10. H/O upper and lower GI bleed. EGD on 04/22/2017 that showed multiple (more than 10) small angioectasia of the duodenum treated with argon-beam coagulation. Recent admission for UGIB, EGD 07/10 Three non-bleeding angioectasias in the stomach. Treated with argon beam coagulation. A few non-bleeding angioectasias in the duodenum. Treated with argon beam coagulation. Patent biliary stent. Followed by Dr Santoyo. Plavix was d/cd at that time. Continue PPI IV Carafate added. chronic anemia. Hgb 8.4 Monitor for bleeding. H/H Q6 hrs. Monitor need for transfusion. Hypertension. Amlodipine/losartan. Hyperlipidemia. Statin Type 2 diabetes. Hold po meds. SSI. COPD. Spiriva A-FIB/CHADSVASC A-FIB History Current/History of A-Fib/PAF?: No VS, I&O, 24H, Fishbone Vital Signs/I&O Vital Signs Date Time Temp Pulse Resp B/P (MAP) Pulse Ox O2 Delivery O2 Flow Rate FiO2 07/29/18 08:00 2.0 07/29/18 08:00 98.6 88 20 136/60 (85) 97 I&O- Last 24 Hours up to 6 AM 07/29/18 06:00 Intake Total 402 ml Output Total 500 ml Balance -98 ml Laboratory Data 24H LABS Laboratory Tests 2 07/28/18 13:29: Phosphorus Level 3.2, Magnesium Level 2.0 07/28/18 17:14: Prothrombin Time 15.1H, Prothromb Time International Ratio 1.17, Activated Partial Thromboplast Time 71.0H, Fibrinogen 197L 07/28/18 17:30: Bedside Glucose (Misc Panel) 169H 07/28/18 23:50: Activated Partial Thromboplast Time 35.6, Fibrinogen 209L 07/29/18 00:48: Bedside Glucose (Misc Panel) 95 07/29/18 04:58: Bedside Glucose (Misc Panel) 108 07/29/18 05:18: Immature Granulocyte % (Auto) 0.4, White Blood Count 9.1, Red Blood Count 3.36L, Hemoglobin 9.0L, Hematocrit 30.4L, Mean Corpuscular Volume 90.5, Mean Corpuscular Hemoglobin 26.8L, Mean Corpuscular Hemoglobin Concent 29.6L, Red Cell Distribution Width 21.6H, Platelet Count 369#, Neutrophils (%) (Auto) 75.7H, Lymphocytes (%) (Auto) 9.5L, Monocytes (%) (Auto) 12.6H, Eosinophils (%) (Auto) 1.4, Basophils (%) (Auto) 0.4, Neutrophils # (Auto) 6.9, Lymphocytes # (Auto) 0.9L, Monocytes # (Auto) 1.2H, Eosinophils # (Auto) 0.1, Basophils # (Auto) 0.0, Nucleated Red Blood Cells % (auto) 0.0, Activated Partial Thromboplast Time 29.5, Fibrinogen 245, Anion Gap 4L, Glomerular Filtration Rate > 60.0, Blood Urea Nitrogen 11, Creatinine 0.55, Sodium Level 140, Potassium Level 3.7, Chloride Level 113H, Carbon Dioxide Level 23, Calcium Level 7.6L, Aspartate Amino Transf (AST/SGOT) 23, Alanine Aminotransferase (ALT/SGPT) 16, Alkaline Phosphatase 111, Total Bilirubin 0.3, Total Protein 5.6L, Albumin 2.6L, Albumin/Globulin Ratio 0.87L 07/29/18 11:02: Activated Partial Thromboplast Time 32.1, Fibrinogen 260 CBC/BMP Laboratory Tests 07/28/18 17:14 07/28/18 23:50 07/29/18 05:18 Red Blood Count 3.36 L, Mean Corpuscular Volume 90.5, Mean Corpuscular Hemoglobin 26.8 L, Mean Corpuscular Hemoglobin Concent 29.6 L, Red Cell Distribution Width 21.6 H, Neutrophils (%) (Auto) 75.7 H, Lymphocytes (%) (Auto) 9.5 L, Monocytes (%) (Auto) 12.6 H, Eosinophils (%) (Auto) 1.4, Basophils (%) (Auto) 0.4, Neutrophils # (Auto) 6.9, Lymphocytes # (Auto) 0.9 L, Monocytes # (Auto) 1.2 H, Eosinophils # (Auto) 0.1, Basophils # (Auto) 0.0, Calcium Level 7.6 L, Aspartate Amino Transf (AST/SGOT) 23, Alanine Aminotransferase (ALT/SGPT) 16, Alkaline Phosphatase 111, Total Bilirubin 0.3, Total Protein 5.6 L, Albumin 2.6 L 07/29/18 11:02 Sunshine Allison July 29, 2018 13:06
--- NOTE | 2018-07-29 14:35 | IPN ---
DATE OF SERVICE: 07/29/2018 SUBJECTIVE: The patient seen and examined in the room today. The patient had significant pain of the left lower extremity. However, improved during the encounter. The patient denies any sign of acute bleeding. Denied any fever or chills. OBJECTIVE: VITAL SIGNS: Temperature 98.6, pulse is 88, respiration 20, blood pressure 136/60, pulse oximetry 97% with 2-liter oxygen. GENERAL: The patient is alert, awake, comfortable. HEENT: Normocephalic, atraumatic. Extraocular motor grossly intact. CARDIOVASCULAR: Positive S1, S2, regular rate. LUNGS: Clear to auscultation bilaterally. No wheezes or rhonchi. ABDOMEN: Soft, nontender. Bowel sounds present. MUSCULOSKELETAL: There was some coldness of the left foot and the left hand. No significant palpable pulse of the left lower extremity. No significant lower extremity edema appreciated. There is a dressing found on the bilateral inguinal area. No active bleeding noted. LABORATORY DATA: WBC 9.1, hemoglobin 9, hematocrit 30.4, platelet count is 369. Sodium is 140, potassium 3.7, chloride 113, carbon dioxide 23, BUN 11, creatinine 0.55, GFR greater than 60, fasting glucose 111, calcium is 7.6, total bilirubin is 0.3, AST 23, ALT 16, alkaline phosphatase 111, total protein 5.6, albumin 2.6. ASSESSMENT AND PLAN: 1. 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 The patient has been receiving tissue plasminogen activator (TPA) through a catheter and heparin drip. The patient may be back to the fluoroscopy suite today for reevaluation. No sign of active bleeding at this moment. Previously, the patient was on Coumadin and Plavix for her left lower extremity deep venous thrombosis (DVT) and stent placement. However, due to the history of gastrointestinal (GI) bleed, the patient has not had Coumadin and Plavix. 2. Severe peripheral vascular disease. On Statin. 3. History of right-sided axillofemoral and gqiqp-bd-ekfy femoral bypass. The patient is currently being treated for a femoral limb occlusion. On heparin and TPA. 4. Chronic obstructive pulmonary disease (COPD). No sign of exacerbation at this moment. The patient at this time requiring oxygen for this. 5. Diabetes. On insulin. Intravenous (IV) support. 6. History of upper and lower gastrointestinal bleed. The patient is currently receiving TPA and heparin drip. No sign of active bleeding at this moment. Continue to follow hemoglobin and hematocrit. 7. History of deep venous thrombosis (DVT) of the left lower extremity. The patient was off the Coumadin due to a GI bleed. Currently, the patient is on heparin. 8. Dyslipidemia. On statin. 9. Tobacco abuse. More than 60 years of smoking. Prior to admission, the patient smoked 1/2 pack daily. Smoking cessation discussed with the patient. 10. Deep venous thrombosis (DVT) prophylaxis. On heparin drip. MTDD
[2018-07-29] MEDS: amLODIPine 5 MG TAB PO SCH (14:52)
[2018-07-29] MEDS: LOSARTAN 50 MG TAB PO SCH (14:52)
[2018-07-29] MEDS: HEPARIN DRIP 25,000 UNITS in APPROPRIATE DILUENT 1 EA IV SCH (17:29)
[2018-07-29 17:31] LABS: FIBRINOGEN 255 MG/DL (221-452)
[2018-07-29 18:16] LABS: PARTIAL THROMBOPLASTIN TIME > 240.0 SECONDS (25.4-37.6)
[2018-07-29] MEDS: ATORVASTATIN 20 MG TAB PO SCH (20:11)
[2018-07-29] MEDS: NS 1,000 ML IV SCH (23:30)
[2018-07-29 23:35] LABS: HEMATOCRIT 24.8 % (36.0-47.0); HEMOGLOBIN 7.5 g/dl (12.0-15.5)
[2018-07-30] VITALS (23 sets, daily range): BP systolic 115–189; BP diastolic 53–103
[2018-07-30 00:02] LABS: PARTIAL THROMBOPLASTIN TIME 123.9 SECONDS (25.4-37.6)
[2018-07-30] MEDS: SUCRALFATE 1 GM TAB PO SCH ×4 (04:58→23:03)
[2018-07-30 05:15] LABS: BASO % 0.6 % (0.0-1.0); EOS # 0.1 10^3/uL (0.0-0.50); EOS % 1.3 % (0.0-3.0); HEMATOCRIT 23.5 % (36.0-47.0); HEMOGLOBIN 7.2 g/dl (12.0-15.5); LYMPH # 0.9 10^3/uL (1.5-4.5); LYMPH % 13.2 % (24.0-44.0); MEAN CORPUSCULAR HEMOGLOBIN 26.7 pg (27.0-33.0); MEAN CORPUSCULAR HGB CONC 30.6 g/dl (32.0-36.5); MONO % 13.5 % (0.0-5.0); PLATELET COUNT, AUTOMATED 275 10^3/uL (150-450)
[2018-07-30 05:46] LABS: PARTIAL THROMBOPLASTIN TIME 131.6 SECONDS (25.4-37.6)
[2018-07-30 05:49] LABS: ALBUMIN 2.2 GM/DL (3.2-5.2); ALT/SGPT 15 U/L (12-78); BILIRUBIN,TOTAL 0.3 MG/DL (0.2-1.0); BLOOD UREA NITROGEN 8 MG/DL (7-18); CALCIUM LEVEL 7.2 MG/DL (8.8-10.2); CARBON DIOXIDE LEVEL 25 MEQ/L (21-32); CHLORIDE LEVEL 111 MEQ/L (98-107); GLOMERULAR FILTRATION RATE > 60.0 (>39); GLUCOSE, FASTING 131 MG/DL (70-100); POTASSIUM SERUM 3.2 MEQ/L (3.5-5.1); SODIUM LEVEL 142 MEQ/L (136-145); TOTAL PROTEIN 5.1 GM/DL (6.4-8.2)
[2018-07-30] MEDS: SODIUM CHLORIDE 0.9% INJ 10 ML SYR IV SCH ×2 (06:00→17:16)
[2018-07-30] MEDS ORDERED: POTASSIUM CHLORIDE 10 MEQ SR TABLET PO ONE (07:15)
[2018-07-30] MEDS: KCL 10MEQ/100ML SWI (KRUN) 10 MEQ in APPROPRIATE DILUENT 1 EA IV SCH ×2 (07:51→08:22)
[2018-07-30] MEDS: TIOTROPIUM INHALER/CAPSULE (SPIRIVA) INH SCH (07:58)
[2018-07-30] MEDS: FERROUS SULFATE 325MG TAB PO SCH ×2 (08:21→20:02)
[2018-07-30] MEDS: HumaLOG INSULIN (NovoLOG) PER UNIT SC SCH ×4 (08:22→20:05)
[2018-07-30] MEDS: PANTOPRAZOLE 40MG INJ (PROTONIX) (C9113) IV SCH ×2 (08:22→20:02)
[2018-07-30] MEDS ORDERED: MIRALAX *UNIT DOSE* 17GM PACKET PO PRN (09:00)
[2018-07-30] MEDS: DOCUSATE SODIUM 100 MG CAP PO SCH ×2 (09:37→20:02)
[2018-07-30] MEDS: ALTEPLASE RECOMBINANT 25 MG in NS 225 ML IV SCH ×2 (09:37→17:06)
[2018-07-30 11:13] LABS: HEMATOCRIT 23.9 % (36.0-47.0); HEMOGLOBIN 7.3 g/dl (12.0-15.5)
[2018-07-30 11:28] LABS: PARTIAL THROMBOPLASTIN TIME 96.6 SECONDS (25.4-37.6)
--- NOTE | 2018-07-30 11:35 | IPNPDOC ---
Date Seen The patient was seen on 07/30/18. Progress Note ATTENDING: Dr. Martin PCP: Dr Hull CC: LLE pain HPI: [id number] with a past medical history significant for recent admission for UGIB, EGD 07/10/18 Three non-bleeding angioectasias in the stomach. Treated with argon beam coagulation. A few non-bleeding angioectasias in the duodenum. Treated with argon beam coagulation. Patent biliary stent. Plavix was d/cd at that time. Pt presented 07/28/18 related to LLE pain for LE angiogram with Dr Martin. 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 Pt with h/o Right-sided axillofemoral and lnsmw-zv-cvke fem/fem bypass. Pt denies any bleeding, has ecchymotic area Rt groin/hip area. Denies pain currently. No concerns this AM. Hospitalist is assisting with medical mgmt. Denies any fevers, chills, weakness, fatigue, BOOKER, CP, SOB, cough, palpitations, abdominal pain, N/V/D or changes in bowel or bladder habits. PAST MEDICAL HISTORY: Hypertension. Hyperlipidemia. Type 2 diabetes. COPD. ERCP June 2017 cholangitis/biliary stent. H/O upper and lower GI bleed. EGD on 04/22/2017 that showed multiple (more than 10) small angioectasia of the duodenum treated with argon-beam coagulation. Recent admission for UGIB, EGD 07/10/18 Three non-bleeding angioectasias in the stomach. Treated with argon beam coagulation. A few non-bleeding angioectasias in the duodenum. Treated with argon beam coagulation. Patent biliary stent. chronic anemia Pt with history of vascular disease status post bilateral common iliac artery and angioplasty and stenting as well as Right-sided axillofemoral and zoklh-rt-zbvk fem/fem bypass. H/O DVT of the left lower extremity and was anticoagulated on warfarin until her admission for GI Bleeding March 2017. PAST SURGICAL HISTORY: Tonsillectomy. Bilateral common iliac artery angioplasty stenting. Right-sided axillofemoral and rayoe-zb-xyso fem/fem bypass undetermined date. EGDs and colonoscopies. 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 Treated with argon beam coagulation. A few non-bleeding angioectasias in the duodenum. Treated with argon beam coagulation. Patent biliary stent. ERCP as above. PE: GEN: [id number], appears stated age. No acute distress. Alert and oriented x 3. HEENT: Normocephalic, atraumatic. No facial asymmetry. Moist mucous membranes. CHEST: Regular rate and rhythm, +S1, +S2 LUNGS: Clear to auscultation bilaterally. No wheezes, rales, or rhonchi. Breathing appears symmetric and easy. ABD: Round, soft, non-tender, non-distended. SKIN: Ecchymotic area noted Rt groin/hip area Left foot toes are still cool to touch,. but slightly improved from yesterday Palpable pulses RLE, LLE non palpable and not able to obtain at time of exam with doppler. NEURO: Alert and oriented x 3. No focal deficits appreciated. LE angiogram as per Dr Martin 07/28/18 report pending. (pt s/p Right-sided axillofemoral and eeerc-yw-rhlq fem/fem bypass)Preliminary finding indicates cross femoral limb occulsion with critical ischemia LLE. A&P: [id number] with a past medical history significant for recent admission for UGIB, EGD 07/10 Three non-bleeding angioectasias in the stomach. Treated with argon beam coagulation. A few non-bleeding angioectasias in the duodenum. Treated with argon beam coagulation. Patent biliary stent. Plavix was d/cd at that time. Pt presents today related to LLE pain for LE angiogram with Dr Martin. 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 The patient will be admitted to ICU for at least [address] Martin's service. 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 Angiogram 07/28/[address] Martin. S/P arthrectomy of fem-fem limb, s/p ballooning. Plan for repeat Angiogram today as per Dr Martin. Thrombolysis per protocol. IVF at 60cc/hr. Pt remains high bleeding risk which was discussed with the pt and the pt's grand dtr as per Dr Martin. Dr Martin awrae of ecchymotic area Rt groin/hip area. s/p Right-sided axillofemoral and eevws-co-vafd fem/fem bypass. Plavix has been held since recent GIB 07/10. H/O upper and lower GI bleed. EGD on 04/22/2017 that showed multiple (more than 10) small angioectasia of the duodenum treated with argon-beam coagulation. Recent admission for UGIB, EGD 07/10 Three non-bleeding angioectasias in the stomach. Treated with argon beam coagulation. A few non-bleeding angioectasias in the duodenum. Treated with argon beam coagulation. Patent biliary stent. Followed by Dr Santoyo. Plavix was d/cd at that time. Continue PPI IV Carafate added. FOB pending, pt states no BM since admission. Add colace/miralax as needed. acute on chronic anemia. ecchymotic area noted, Dr Martin aware. Hgb 7.3 Monitor for bleeding. H/H Q6 hrs. PRBC x 1 unit today. A-FIB/CHADSVASC A-FIB History Current/History of A-Fib/PAF?: No VS, I&O, 24H, Fishbone Vital Signs/I&O Vital Signs Date Time Temp Pulse Resp B/P (MAP) Pulse Ox O2 Delivery O2 Flow Rate FiO2 07/30/18 08:00 2.0 07/30/18 08:00 98.2 94 13 122/59 (80) 98 I&O- Last 24 Hours up to 6 AM 07/30/18 06:00 Intake Total 1611 ml Output Total 850 ml Balance 761 ml Laboratory Data 24H LABS Laboratory Tests 2 07/29/18 14:43: Bedside Glucose (Misc Panel) 128H 07/29/18 17:03: Activated Partial Thromboplast Time > 240.0*H, Fibrinogen 255 07/29/18 17:17: Bedside Glucose (Misc Panel) 125H 07/29/18 20:05: Bedside Glucose (Misc Panel) 226H 07/29/18 23:18: Activated Partial Thromboplast Time 123.9*H, Fibrinogen 255 07/30/18 04:51: Activated Partial Thromboplast Time 131.6*H, Fibrinogen 257, Immature Granulocyte % (Auto) 0.4, White Blood Count 7.0, Red Blood Count 2.70L, H emoglobin 7.2L, Hematocrit 23.5L, Mean Corpuscular Volume 87.0, Mean Corpuscular Hemoglobin 26.7L, Mean Corpuscular Hemoglobin Concent 30.6L, Red Cell Distribution Width 21.7H, Platelet Count 275, Neutrophils (%) (Auto) 71.0H, Lymphocytes (%) (Auto) 13.2L, Monocytes (%) (Auto) 13.5H, Eosinophils (%) (Auto) 1.3, Basophils (%) (Auto) 0.6, Neutrophils # (Auto) 5.0, Lymphocytes # (Auto) 0.9L, Monocytes # (Auto) 1.0H, Eosinophils # (Auto) 0.1, Basophils # (Auto) 0.0, Nucleated Red Blood Cells % (auto) 0.0, Anion Gap 6L, Glomerular Filtration Rate > 60.0, Blood Urea Nitrogen 8, Creatinine 0.50L, Sodium Level 142, Potassium Level 3.2L, Chloride Level 111H, Carbon Dioxide Level 25, Calcium Level 7.2L, Aspartate Amino Transf (AST/SGOT) 27, Alanine Aminotransferase (ALT/SGPT) 15, Alkaline Phosphatase 107, Total Bilirubin 0.3, Total Protein 5.1L, Albumin 2.2L, Albumin/Globulin Ratio 0.76L 07/30/18 10:57: Activated Partial Thromboplast Time 96.6H, Fibrinogen 275 CBC/BMP Laboratory Tests 07/29/18 17:03 07/29/18 23:18 07/30/18 04:51 Red Blood Count 2.70 L, Mean Corpuscular Volume 87.0, Mean Corpuscular Hemoglobin 26.7 L, Mean Corpuscular Hemoglobin Concent 30.6 L, Red Cell Distribution Width 21.7 H, Neutrophils (%) (Auto) 71.0 H, Lymphocytes (%) (Auto) 13.2 L, Monocytes (%) (Auto) 13.5 H, Eosinophils (%) (Auto) 1.3, Basophils (%) (Auto) 0.6, Neutrophils # (Auto) 5.0, Lymphocytes # (Auto) 0.9 L, Monocytes # (Auto) 1.0 H, Eosinophils # (Auto) 0.1, Basophils # (Auto) 0.0, Calcium Level 7.2 L, Aspartate Amino Transf (AST/SGOT) 27, Alanine Aminotransferase (ALT/SGPT) 15, Alkaline Phosphatase 107, Total Bilirubin 0.3, Total Protein 5.1 L, Albumin 2.2 L 07/30/18 10:57 Sunshine Allison July 30, 2018 11:35
[2018-07-30] MEDS ORDERED: LIDOCAINE 2% MDV 20 ML VIAL As Ordered ONE (11:55)
[2018-07-30] MEDS ORDERED: fentaNYL 100 MCG/2 ML INJECTION (J3010) As Ordered ONE (11:55)
[2018-07-30] MEDS ORDERED: MIDAZOLAM INJ 2 MG/2 ML VIAL (J2250) As Ordered ONE (11:55)
[2018-07-30] MEDS ORDERED: BUPIVACAINE HCL 0.5% 10 ML VIAL As Ordered ONE (11:55)
[2018-07-30] MEDS ORDERED: ISOVUE-300 61% 100ML VIAL (Q9967) As Ordered ONE (11:56)
--- NOTE | 2018-07-30 12:57 | IPNPDOC ---
Text Note Date of Service The patient was seen on 07/30/18. NOTE SUBJECTIVE: The patient is seen and examined in the ICU today. Patient sates her inguinal pain has improved. Left lower extremity pain also improved. Patient denies sign of active bleeding. Denied any fever or chills. OBJECTIVE: VITAL SIGNS: Listed below. GENERAL: The patient is alert, awake, comfortable. HEENT: Normocephalic, atraumatic. Extraocular motor grossly intact. CARDIOVASCULAR: Positive S1, S2, regular rate. LUNGS: Clear to auscultation bilaterally. No wheezes or rhonchi. ABDOMEN: Soft, nontender. Bowel sounds present. MUSCULOSKELETAL: Decreased coldness of the left foot. Mild discoloration of left toes. No significant lower extremity edema appreciated. There is a dressing found on the bilateral inguinal area. No active bleeding noted. LABORATORY DATA: Listed below. ASSESSMENT AND PLAN: #. 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 - On tissue plasminogen activator (TPA) and heparin drip. No sign of active bleeding at this moment. - Previously, the patient was on Coumadin and Plavix for her left lower extremity deep venous thrombosis (DVT) and stent placement. However, due to the history of gastrointestinal (GI) bleed, the patient has not had Coumadin and Plavix. - The patient has severe peripheral vascular disease. # Anemia - Patient is on heparin and tPA. No sign of active bleeding. There is decrease of hemoglobin and hematocrit. Blood consent obtained. PRBC ordered. Will follow repeat HH. #. History of right-sided axillofemoral and hzraa-ng-ikgu femoral bypass. The patient is currently being treated for a femoral limb occlusion. On heparin and TPA. #. Chronic obstructive pulmonary disease (COPD). No sign of exacerbation at this moment. The patient at this time requiring oxygen for this. #. Diabetes. On insulin. Intravenous (IV) support. #. History of upper and lower gastrointestinal bleed. The patient is currently receiving TPA and heparin drip. No sign of active bleeding at this moment. Continue to follow hemoglobin and hematocrit. #. History of deep venous thrombosis (DVT) of the left lower extremity. The patient was off the Coumadin due to a GI bleed. Currently, the patient is on heparin. #. Dyslipidemia. On statin. #. Tobacco abuse. More than 60 years of smoking. Prior to admission, the patient smoked 1/2 pack daily. Smoking cessation discussed with the patient. #. Deep venous thrombosis (DVT) prophylaxis. On heparin drip. A-FIB/CHADSVASC A-FIB History Current/History of A-Fib/PAF?: No VS,Fishbone, I+O VS, Fishbone, I+O Laboratory Tests 07/29/18 17:03 07/29/18 23:18 07/30/18 04:51 Red Blood Count 2.70 L, Mean Corpuscular Volume 87.0, Mean Corpuscular Hemoglobin 26.7 L, Mean Corpuscular Hemoglobin Concent 30.6 L, Red Cell Dist ribution Width 21.7 H, Neutrophils (%) (Auto) 71.0 H, Lymphocytes (%) (Auto) 13.2 L, Monocytes (%) (Auto) 13.5 H, Eosinophils (%) (Auto) 1.3, Basophils (%) (Auto) 0.6, Neutrophils # (Auto) 5.0, Lymphocytes # (Auto) 0.9 L, Monocytes # (Auto) 1.0 H, Eosinophils # (Auto) 0.1, Basophils # (Auto) 0.0, Calcium Level 7.2 L, Aspartate Amino Transf (AST/SGOT) 27, Alanine Aminotransferase (ALT/SGPT) 15, Alkaline Phosphatase 107, Total Bilirubin 0.3, Total Protein 5.1 L, Albumin 2.2 L 07/30/18 10:57 Vital Signs Date Time Temp Pulse Resp B/P (MAP) Pulse Ox O2 Delivery O2 Flow Rate FiO2 07/30/18 08:00 2.0 07/30/18 08:00 98.2 94 13 122/59 (80) 98 I&O- Last 24 Hours up to 6 AM 07/30/18 06:00 Intake Total 1611 ml Output Total 850 ml Balance 761 ml JUAN RAMON LLOYD DO July 30, 2018 12:57
[2018-07-30] MEDS: LOSARTAN 50 MG TAB PO SCH (15:30)
[2018-07-30] MEDS: amLODIPine 5 MG TAB PO SCH (15:31)
[2018-07-30 17:25] LABS: HEMATOCRIT 28.3 % (36.0-47.0); HEMOGLOBIN 8.9 g/dl (12.0-15.5)
[2018-07-30] MEDS: ATORVASTATIN 20 MG TAB PO SCH (20:02)
[2018-07-30] MEDS: NS 1,000 ML IV SCH (20:03)
[2018-07-30] MEDS: HEPARIN DRIP 25,000 UNITS in APPROPRIATE DILUENT 1 EA IV SCH (20:05)
[2018-07-30 23:17] LABS: HEMATOCRIT 26.9 % (36.0-47.0); HEMOGLOBIN 8.5 g/dl (12.0-15.5)
[2018-07-30 23:36] LABS: PARTIAL THROMBOPLASTIN TIME 83.3 SECONDS (25.4-37.6)
[2018-07-31] VITALS (23 sets, daily range): BP systolic 103–166; BP diastolic 52–89
[2018-07-31 04:49] LABS: BASO % 0.3 % (0.0-1.0); EOS # 0.1 10^3/uL (0.0-0.50); HEMATOCRIT 27.1 % (36.0-47.0); HEMOGLOBIN 8.4 g/dl (12.0-15.5); LYMPH % 9.7 % (24.0-44.0); MEAN CORPUSCULAR HEMOGLOBIN 27.4 pg (27.0-33.0); MEAN CORPUSCULAR VOLUME 88.3 fl (80.0-96.0); MONO # 1.2 10^3/uL (0.0-0.8); MONO % 11.8 % (0.0-5.0); NEUTROPHILS # 7.6 10^3/uL (1.8-7.7); NEUTROPHILS % 76.6 % (36.0-66.0); PLATELET COUNT, AUTOMATED 188 10^3/uL (150-450); RED BLOOD COUNT 3.07 10^6/uL (4.00-5.40); WHITE BLOOD COUNT 9.9 10^3/uL (4.0-10.0)
[2018-07-31 05:09] LABS: PARTIAL THROMBOPLASTIN TIME 88.3 SECONDS (25.4-37.6)
[2018-07-31 05:21] LABS: ALBUMIN 2.3 GM/DL (3.2-5.2); ALT/SGPT 28 U/L (12-78); BILIRUBIN,TOTAL 0.4 MG/DL (0.2-1.0); BLOOD UREA NITROGEN 7 MG/DL (7-18); CARBON DIOXIDE LEVEL 24 MEQ/L (21-32); CHLORIDE LEVEL 108 MEQ/L (98-107); CREATININE FOR GFR 0.52 MG/DL (0.55-1.30); GLOMERULAR FILTRATION RATE > 60.0 (>39); GLUCOSE, FASTING 125 MG/DL (70-100); POTASSIUM SERUM 3.6 MEQ/L (3.5-5.1); SODIUM LEVEL 140 MEQ/L (136-145); TOTAL PROTEIN 5.1 GM/DL (6.4-8.2)
[2018-07-31] MEDS: SODIUM CHLORIDE 0.9% INJ 10 ML SYR IV SCH ×2 (06:39→18:02)
[2018-07-31] MEDS: SUCRALFATE 1 GM TAB PO SCH ×4 (06:39→23:25)
[2018-07-31] MEDS: TIOTROPIUM INHALER/CAPSULE (SPIRIVA) INH SCH (07:04)
[2018-07-31] MEDS: DOCUSATE SODIUM 100 MG CAP PO SCH ×2 (08:31→20:00)
[2018-07-31] MEDS: FERROUS SULFATE 325MG TAB PO SCH ×2 (08:31→20:00)
[2018-07-31] MEDS: PANTOPRAZOLE 40MG INJ (PROTONIX) (C9113) IV SCH ×2 (08:31→20:00)
[2018-07-31] MEDS: HumaLOG INSULIN (NovoLOG) PER UNIT SC SCH ×4 (08:32→20:17)
[2018-07-31] MEDS: MORPHINE 1MG/ML IN 0.9% NACL 100ML IV BAG IV PRN (08:32)
[2018-07-31] MEDS ORDERED: NS IV SCH ×4 (09:00→17:10)
[2018-07-31] MEDS ORDERED: ALTEPLASE RECOMBINANT IV SCH ×4 (09:00→17:10)
--- NOTE | 2018-07-31 09:50 | IPNPDOC ---
Date Seen The patient was seen on 07/31/18. Progress Note Vascular Surgery: Dr. Martin Hospitalist Dr Martinez PCP: Dr Hull CC: LLE pain HPI: [id number] with a past medical history significant for recent admission for UGIB, EGD 07/10/18 Three non-bleeding angioectasias in the stomach. Treated with argon beam coagulation. A few non-bleeding angioectasias in the duodenum. Treated with argon beam coagulation. Patent biliary stent. Plavix was d/cd at that time. Pt presented 07/28/18 related to LLE pain for LE angiogram with Dr Martin. 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 Pt with h/o Right-sided axillofemoral and gvlzm-dt-nsyk fem/fem bypass. Pt denies any bleeding, has ecchymotic area Rt groin/hip area noted. Pt states it is unchanged from yesterday and denies pain. Denies any other areas of ecchymosis. Pt states she has had pain in her Left great toe. Denies pain currently. No concerns this AM. Eating breakfast. Denies any fevers, chills, weakness, fatigue, BOOKER, CP, SOB, cough, palpitations, abdominal pain, N/V/D or changes in bowel or bladder habits. PAST MEDICAL HISTORY: Hypertension. Hyperlipidemia. Type 2 diabetes. COPD. ERCP June 2017 cholangitis/biliary stent. H/O upper and lower GI bleed. EGD on 04/22/2017 that showed multiple (more than 10) small angioectasia of the duodenum treated with argon-beam coagulation. Recent admission for UGIB, EGD 07/10/18 Three non-bleeding angioectasias in the stomach. Treated with argon beam coagulation. A few non-bleeding angioectasias in the duodenum. Treated with argon beam coagulation. Patent biliary stent. chronic anemia Pt with history of vascular disease status post bilateral common iliac artery and angioplasty and stenting as well as Right-sided axillofemoral and rdgsp-jh-wngn fem/fem bypass. H/O DVT of the left lower extremity and was anticoagulated on warfarin until her admission for GI Bleeding March 2017. PAST SURGICAL HISTORY: Tonsillectomy. Bilateral common iliac artery angioplasty stenting. Right-sided axillofemoral and cabtz-jl-sexf fem/fem bypass undetermined date. EGDs and colonoscopies. 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 Treated with argon beam coagulation. A few non-bleeding angioectasias in the duodenum. Treated with argon beam coagulation. Patent biliary stent. ERCP as above. PE: GEN: [id number], appears stated age. No acute distress. Alert and oriented x 3. HEENT: Normocephalic, atraumatic. No facial asymmetry. Moist mucous membranes. CHEST: Regular rate and rhythm, +S1, +S2 LUNGS: Clear to auscultation bilaterally. No wheezes, rales, or rhonchi. Breathing appears symmetric and easy. ABD: Round, soft, non-tender, non-distended. SKIN: Ecchymotic area noted Rt groin/hip area appears to be unchanged from . Left foot toes are still cool to touch. Palpable pulses RLE, LLE non palpable and DP obtained with doppler, monophasic. PT not able to obtain at time of exam with doppler. NEURO: Alert and oriented x 3. No focal deficits appreciated. LE angiogram as per Dr Martin 07/28/18 report pending. (pt s/p Right-sided axillofemoral and icktn-qu-aqpb fem/fem bypass)Preliminary finding indicates c ross femoral limb occulsion with critical ischemia LLE. A&P: [id number] with a past medical history significant for recent admission for UGIB, EGD 07/10 Three non-bleeding angioectasias in the stomach. Treated with argon beam coagulation. A few non-bleeding angioectasias in the duodenum. Treated with argon beam coagulation. Patent biliary stent. Plavix was d/cd at that time. Pt presents today related to LLE pain for LE angiogram with Dr Martin. 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 The patient will be admitted to ICU for at least [address] Martin's service. 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 Angiogram 07/28/[address] Martin. S/P arthrectomy of fem-fem limb, s/p ballooning. Plan for repeat Angiogram today as per Dr Martin. Thrombolysis per protocol. IVF at 60cc/hr. Pt remains high bleeding risk which was discussed with the pt and the pt's grand dtr as per Dr Martin. Dr Martin aware of ecchymotic area Rt groin/hip area, this appears unchanged today. s/p Right-sided axillofemoral and yzwfv-tc-wvag fem/fem bypass. Plavix has been held since recent GIB 07/10. H/O upper and lower GI bleed. EGD on 04/22/2017 that showed multiple (more than 10) small angioectasia of the duodenum treated with argon-beam coagulation. Recent admission for UGIB, EGD 07/10 Three non-bleeding angioectasias in the stomach. Treated with argon beam coagulation. A few non-bleeding angioectasias in the duodenum. Treated with argon beam coagulation. Patent biliary stent. Followed by Dr Santoyo. Plavix was d/cd at that time. Continue PPI IV Carafate added. FOB pending, pt states no BM since admission. Add colace/miralax as needed. acute on chronic anemia. ecchymotic area noted, Dr Martin aware. PRBC x 1 unit 07/30/18. Hgb 8.4 Monitor for bleeding. H/H Q6 hrs. A-FIB/CHADSVASC A-FIB History Current/History of A-Fib/PAF?: No VS, I&O, 24H, Fishbone Vital Signs/I&O Vital Signs Date Time Temp Pulse Resp B/P (MAP) Pulse Ox O2 Delivery O2 Flow Rate FiO2 07/31/18 08:03 97.1 92 18 124/60 (81) 97 07/31/18 06:03 2.0 I&O- Last 24 Hours up to 6 AM 07/31/18 06:00 Intake Total 3159 ml Output Total 2200 ml Balance 959 ml Laboratory Data 24H LABS Laboratory Tests 2 07/30/18 10:57: Activated Partial Thromboplast Time 96.6H, Fibrinogen 275 07/30/18 15:17: Bedside Glucose (Misc Panel) 184H 07/30/18 17:12: Activated Partial Thromboplast Time 80.0H, Fibrinogen 289 07/30/18 17:54: Bedside Glucose (Misc Panel) 192H 07/30/18 19:48: Bedside Glucose (Misc Panel) 150H 07/30/18 22:58: Activated Partial Thromboplast Time 83.3H, Fibrinogen 275 07/31/18 04:20: Activated Partial Thromboplast Time 88.3H, Fibrinogen 304, Immature Granulocyte % (Auto) 0.6, White Blood Count 9.9, Red Blood Count 3.07L, Hemoglobin 8.4L, Hematocrit 27.1L, Mean Corpuscular Volume 88.3, Mean Corpuscular Hemoglobin 27.4, Mean Corpuscular Hemoglobin Concent 31.0L, Red Cell Distribution Width 21.1H, Platelet Count 188, Neutrophils (%) (Auto) 76.6H, Lymphocytes (%) (Auto) 9.7L, Monocytes (%) (Auto) 11.8H, Eosinophils (%) (Auto) 1.0, Basophils (%) (Auto) 0.3, Neutrophils # (Auto) 7.6, Lymphocytes # (Auto) 1.0L, Monocytes # (Auto) 1.2H, Eosinophils # (Auto) 0.1, Basophils # (Auto) 0.0, Nucleated Red Blood Cells % (auto) 0.0, Anion Gap 8, Glomerular Filtration Rate > 60.0, Blood Urea Nitrogen 7, Creatinine 0.52L, Sodium Level 140, Potassium Level 3.6, Chloride Level 108H, Carbon Dioxide Level 24, Calcium Level 7.0L, Aspartate Amino Transf (AST/SGOT) 37, Alanine Aminotransferase (ALT/SGPT) 28, Alkaline Phosphatase 135H, Total Bilirubin 0.4, Total Protein 5.1L, Albumin 2.3L, Albumin/Globulin Ratio 0.82L CBC/BMP Laboratory Tests 07/30/18 10:57 07/30/18 17:12 07/30/18 22:58 07/31/18 04:20 Red Blood Count 3.07 L, Mean Corpuscular Volume 88.3, Mean Corpuscular Hemoglobin 27.4, Mean Corpuscular Hemoglobin Concent 31.0 L, Red Cell Distribution Width 21.1 H, Neutrophils (%) (Auto) 76.6 H, Lymphocytes (%) (Auto) 9.7 L, Monocytes (%) (Auto) 11.8 H, Eosinophils (%) (Auto) 1.0, Basophils (%) (Auto) 0.3, Neutrophils # (Auto) 7.6, Lymphocytes # (Auto) 1.0 L, Monocytes # (Auto) 1.2 H, Eosinophils # (Auto) 0.1, Basophils # (Auto) 0.0, Calcium Level 7.0 L, Aspartate Amino Transf (AST/SGOT) 37, Alanine Aminotransferase (ALT/SGPT) 28, Alkaline Phosphatase 135 H, Total Bilirubin 0.4, Total Protein 5.1 L, Albumin 2.3 L Sunshine Allison July 31, 2018 09:50
[2018-07-31] MEDS ORDERED: BUPIVACAINE HCL 0.5% 10 ML VIAL As Ordered ONE (10:19)
[2018-07-31] MEDS ORDERED: ISOVUE-300 61% 100ML VIAL (Q9967) As Ordered ONE (10:20)
[2018-07-31] MEDS ORDERED: LIDOCAINE 2% MDV 20 ML VIAL As Ordered ONE (10:20)
[2018-07-31] MEDS: NS 1,000 ML IV SCH (11:57)
[2018-07-31] MEDS: LOSARTAN 50 MG TAB PO SCH (11:57)
[2018-07-31] MEDS: amLODIPine 5 MG TAB PO SCH (11:57)
[2018-07-31 12:17] LABS: HEMOGLOBIN 8.6 g/dl (12.0-15.5)
[2018-07-31 12:37] LABS: PARTIAL THROMBOPLASTIN TIME 70.1 SECONDS (25.4-37.6)
--- NOTE | 2018-07-31 17:34 | IPNPDOC ---
Text Note Date of Service The patient was seen on 07/31/18. NOTE SUBJECTIVE: The patient is seen and examined in the ICU today. Patient states her pains are under control. No sign of active bleeding. Denied any fever or chills. OBJECTIVE: VITAL SIGNS: Listed below. GENERAL: The patient is alert, awake, comfortable. HEENT: Normocephalic, atraumatic. Extraocular motor grossly intact. CARDIOVASCULAR: Positive S1, S2, regular rate. LUNGS: Clear to auscultation bilaterally. No wheezes or rhonchi. ABDOMEN: Soft, nontender. Bowel sounds present. MUSCULOSKELETAL: Decreased coldness of the left foot. Mild discoloration of left toes. No lower extremity edema appreciated. LABORATORY DATA: Listed below. ASSESSMENT AND PLAN: #. 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 - On tissue plasminogen activator (TPA) and heparin drip. No sign of active bleeding at this moment. - Previously, the patient was on Coumadin and Plavix for her left lower extremity deep venous thrombosis (DVT) and stent placement. However, due to the history of gastrointestinal (GI) bleed, the patient has not had Coumadin and Plavix. - The patient has severe peripheral vascular disease. - Discussed with Dr. Martin. Patient has scheduled angiogram tomorrow. # Anemia - Patient is on heparin and tPA. No sign of active bleeding. There is decrease of hemoglobin and hematocrit. Blood consent obtained. PRBC ordered. Will follow repeat HH. #. History of right-sided axillofemoral and zudtd-os-wzjz femoral bypass. The patient is currently being treated for a femoral limb occlusion. On heparin and TPA. #. Chronic obstructive pulmonary disease (COPD). No sign of exacerbation at this moment. The patient at this time requiring oxygen for this. #. Diabetes. On insulin. Intravenous (IV) support. #. History of upper and lower gastrointestinal bleed. The patient is currently receiving TPA and heparin drip. No sign of active bleeding at this moment. Continue to follow hemoglobin and hematocrit. #. History of deep venous thrombosis (DVT) of the left lower extremity. The patient was off the Coumadin due to a GI bleed. Currently, the patient is on heparin. #. Dyslipidemia. On statin. #. Tobacco abuse. More than 60 years of smoking. Prior to admission, the patient smoked 1/2 pack daily. Smoking cessation discussed with the patient. #. Deep venous thrombosis (DVT) prophylaxis. On heparin drip. A-FIB/CHADSVASC A-FIB History Current/History of A-Fib/PAF?: No VS,Fishbone, I+O VS, Fishbone, I+O Laboratory Tests 07/30/18 17:12 07/30/18 22:58 07/31/18 04:20 Red Blood Count 3.07 L, Mean Corpuscular Volume 88.3, Mean Corpuscular Hemoglobin 27.4, Mean Corpuscular Hemoglobin Concent 31.0 L, Red Cell Distribution Width 21.1 H, Neutrophils (%) (Auto) 76.6 H, Lymphocytes (%) (Auto) 9.7 L, Monocytes (%) (Auto) 11.8 H, Eosinophils (%) (Auto) 1.0, Basophils (%) (Auto) 0.3, Neutrophils # (Auto) 7.6, Lymphocytes # (Auto) 1.0 L, Monocytes # (Auto) 1.2 H, Eosinophils # (Auto) 0.1, Basophils # (Auto) 0.0, Calcium Level 7.0 L, Aspartate Amino Transf (AST/SGOT) 37, Alanine Aminotransferase (ALT/SGPT) 28, Alkaline Phosphatase 135 H, Total Bilirubin 0.4, Total Protein 5.1 L, Albumin 2.3 L 07/31/18 12:00 Vital Signs Date Time Temp Pulse Resp B/P (MAP) Pulse Ox O2 Delivery O2 Flow Rate FiO2 07/31/18 15:03 99 149/68 (95) 99 2.0 07/31/18 12:03 97.8 18 I&O- Last 24 Hours up to 6 AM 07/31/18 05:59 Intake Total 3100 ml Output Total 2050 ml Balance 1050 ml JUAN RAMON LLOYD DO July 31, 2018 17:34
[2018-07-31] MEDS: HEPARIN DRIP 25,000 UNITS in APPROPRIATE DILUENT 1 EA IV SCH (18:04)
[2018-07-31] MEDS: ATORVASTATIN 20 MG TAB PO SCH (20:00)
[2018-08-01] VITALS (14 sets, daily range): BP systolic 112–136; BP diastolic 52–69
[2018-08-01] MEDS: SUCRALFATE 1 GM TAB PO SCH ×4 (05:14→23:39)
[2018-08-01] MEDS: NS 1,000 ML IV SCH (05:15)
[2018-08-01] MEDS: SODIUM CHLORIDE 0.9% INJ 10 ML SYR IV SCH ×2 (05:15→17:56)
[2018-08-01 05:29] LABS: BASO % 0.3 % (0.0-1.0); EOS # 0.1 10^3/uL (0.0-0.50); EOS % 1.3 % (0.0-3.0); HEMOGLOBIN 7.5 g/dl (12.0-15.5); LYMPH # 0.6 10^3/uL (1.5-4.5); MEAN CORPUSCULAR HGB CONC 31.3 g/dl (32.0-36.5); MEAN CORPUSCULAR VOLUME 86.3 fl (80.0-96.0); MONO # 1.3 10^3/uL (0.0-0.8); MONO % 13.3 % (0.0-5.0); NEUTROPHILS # 7.9 10^3/uL (1.8-7.7); NEUTROPHILS % 78.6 % (36.0-66.0); PLATELET COUNT, AUTOMATED 164 10^3/uL (150-450); RED BLOOD COUNT 2.78 10^6/uL (4.00-5.40); WHITE BLOOD COUNT 10.1 10^3/uL (4.0-10.0)
[2018-08-01 05:52] LABS: ALT/SGPT 21 U/L (12-78); BILIRUBIN,TOTAL 0.6 MG/DL (0.2-1.0); BLOOD UREA NITROGEN 7 MG/DL (7-18); CALCIUM LEVEL 7.1 MG/DL (8.8-10.2); CARBON DIOXIDE LEVEL 25 MEQ/L (21-32); CHLORIDE LEVEL 108 MEQ/L (98-107); GLOMERULAR FILTRATION RATE > 60.0 (>39); GLUCOSE, FASTING 144 MG/DL (70-100); POTASSIUM SERUM 3.4 MEQ/L (3.5-5.1); SODIUM LEVEL 139 MEQ/L (136-145); TOTAL PROTEIN 4.8 GM/DL (6.4-8.2)
[2018-08-01] MEDS ORDERED: POTASSIUM CHLORIDE 10 MEQ SR TABLET PO ONE (07:45)
[2018-08-01] MEDS: TIOTROPIUM INHALER/CAPSULE (SPIRIVA) INH SCH (07:52)
[2018-08-01] MEDS: FERROUS SULFATE 325MG TAB PO SCH ×2 (08:02→20:01)
[2018-08-01] MEDS: HumaLOG INSULIN (NovoLOG) PER UNIT SC SCH ×4 (08:03→20:04)
[2018-08-01] MEDS: DOCUSATE SODIUM 100 MG CAP PO SCH ×2 (08:03→20:01)
[2018-08-01] MEDS: PANTOPRAZOLE 40MG INJ (PROTONIX) (C9113) IV SCH ×2 (08:03→20:00)
[2018-08-01] MEDS ORDERED: NS IV SCH (09:00)
[2018-08-01] MEDS ORDERED: ALTEPLASE RECOMBINANT IV SCH (09:00)
[2018-08-01] MEDS: HEPARIN DRIP 25,000 UNITS in APPROPRIATE DILUENT 1 EA IV SCH (09:17)
[2018-08-01] MEDS: LOSARTAN 50 MG TAB PO SCH (12:08)
[2018-08-01] MEDS: amLODIPine 5 MG TAB PO SCH (12:08)
[2018-08-01] MEDS: MORPHINE 1MG/ML IN 0.9% NACL 100ML IV BAG IV PRN (12:37)
--- NOTE | 2018-08-01 14:23 | IPNPDOC ---
Text Note Date of Service The patient was seen on 08/01/18. NOTE SUBJECTIVE: The patient is seen and examined in the ICU today. Patient states her breathing is improving. Her pains are under control. No sign of active bleeding. Denied any fever or chills. OBJECTIVE: VITAL SIGNS: Listed below. GENERAL: The patient is alert, awake, comfortable. HEENT: Normocephalic, atraumatic. Extraocular motor grossly intact. CARDIOVASCULAR: Positive S1, S2, regular rate. LUNGS: Clear to auscultation bilaterally. No wheezes or rhonchi. ABDOMEN: Soft, nontender. Bowel sounds present. MUSCULOSKELETAL: Mild redness noted from left toes. No lower extremity edema appreciated. LABORATORY DATA: Listed below. ASSESSMENT AND PLAN: #. 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 - tPA discontinued on 07/31/18. Currently patient is still on heparin drip. No sign of active bleeding at this moment. - Previously, the patient was on Coumadin and Plavix for her left lower extremity deep venous thrombosis (DVT) and stent placement. However, due to the history of gastrointestinal (GI) bleed, the patient has not had Coumadin and Plavix. - The patient has severe peripheral vascular disease. - Physical therapy ordered. # Anemia - Patient is on heparin. No sign of active bleeding. There is decrease of hem oglobin and hematocrit. - Blood transfusion on 07/30/18 and 08/01/18. #. History of right-sided axillofemoral and hcoki-ma-uwjp femoral bypass. - The patient is currently being treated for a femoral limb occlusion. On heparin. #. Chronic obstructive pulmonary disease (COPD). - No sign of exacerbation at this moment. Titrating O2 between 88-92%. #. Diabetes. On insulin. On consistent carbohydrate diet. #. History of upper and lower gastrointestinal bleed. The patient is currently receiving TPA and heparin drip. No sign of active bleeding at this moment. Continue to follow hemoglobin and hematocrit. #. History of deep venous thrombosis (DVT) of the left lower extremity. The patient was off the Coumadin due to a GI bleed. Currently, the patient is on heparin. #. Dyslipidemia. On statin. #. Tobacco abuse. More than 60 years of smoking. Prior to admission, the patient smoked 1/2 pack daily. Smoking cessation discussed with the patient. #. Deep venous thrombosis (DVT) prophylaxis. On heparin drip. A-FIB/CHADSVASC A-FIB History Current/History of A-Fib/PAF?: No VS,Fishbone, I+O VS, Fishbone, I+O Laboratory Tests 08/01/18 05:14 Red Blood Count 2.78 L, Mean Corpuscular Volume 86.3, Mean Corpuscular Hemoglobin 27.0, Mean Corpuscular Hemoglobin Concent 31.3 L, Red Cell Distribution Width 20.9 H, Neutrophils (%) (Auto) 78.6 H, Lymphocytes (%) (Auto) 6.0 L, Monocytes (%) (Auto) 13.3 H, Eosinophils (%) (Auto) 1.3, Basophils (%) (Auto) 0.3, Neutrophils # (Auto) 7.9 H, Lymphocytes # (Auto) 0.6 L, Monocytes # (Auto) 1.3 H, Eosinophils # (Auto) 0.1, Basophils # (Auto) 0.0, Calcium Level 7.1 L, Aspartate Amino Transf (AST/SGOT) 23, Alanine Aminotransferase (ALT/SGPT) 21, Alkaline Phosphatase 102, Total Bilirubin 0.6, Total Protein 4.8 L, Albumin 2.0 L Vital Signs Date Time Temp Pulse Resp B/P (MAP) Pulse Ox O2 Delivery O2 Flow Rate FiO2 08/01/18 12:08 136/65 08/01/18 12:08 93 08/01/18 12:00 99.2 18 94 0.5 I&O- Last 24 Hours up to 6 AM 08/01/18 06:00 Intake Total 2622 ml Output Total 1125 ml Balance 1497 ml JUAN RAMON LLOYD DO August 01, 2018 14:23
[2018-08-01 18:30] LABS: HEMATOCRIT 27.3 % (36.0-47.0); HEMOGLOBIN 8.6 g/dl (12.0-15.5)
[2018-08-01] MEDS: ATORVASTATIN 20 MG TAB PO SCH (20:01)
[2018-08-02] VITALS: BP 122/59
[2018-08-02 04:00] VITALS: BP 128/56
[2018-08-02] MEDS: SUCRALFATE 1 GM TAB PO SCH ×3 (05:15→17:32)
[2018-08-02] MEDS: SODIUM CHLORIDE 0.9% INJ 10 ML SYR IV SCH ×2 (05:15→18:00)
[2018-08-02 05:35] LABS: BASO % 0.3 % (0.0-1.0); EOS # 0.2 10^3/uL (0.0-0.50); EOS % 2.3 % (0.0-3.0); HEMATOCRIT 27.1 % (36.0-47.0); HEMOGLOBIN 8.5 g/dl (12.0-15.5); LYMPH # 0.7 10^3/uL (1.5-4.5); LYMPH % 7.9 % (24.0-44.0); MEAN CORPUSCULAR HEMOGLOBIN 27.8 pg (27.0-33.0); MEAN CORPUSCULAR HGB CONC 31.4 g/dl (32.0-36.5); MEAN CORPUSCULAR VOLUME 88.6 fl (80.0-96.0); MONO # 1.1 10^3/uL (0.0-0.8); MONO % 12.1 % (0.0-5.0); NEUTROPHILS # 6.7 10^3/uL (1.8-7.7); NEUTROPHILS % 76.9 % (36.0-66.0); PLATELET COUNT, AUTOMATED 176 10^3/uL (150-450); RED BLOOD COUNT 3.06 10^6/uL (4.00-5.40); WHITE BLOOD COUNT 8.7 10^3/uL (4.0-10.0)
[2018-08-02 05:58] LABS: ALBUMIN 1.8 GM/DL (3.2-5.2); ALT/SGPT 19 U/L (12-78); BILIRUBIN,TOTAL 0.6 MG/DL (0.2-1.0); BLOOD UREA NITROGEN 7 MG/DL (7-18); CALCIUM LEVEL 7.2 MG/DL (8.8-10.2); CARBON DIOXIDE LEVEL 27 MEQ/L (21-32); CHLORIDE LEVEL 109 MEQ/L (98-107); CREATININE FOR GFR 0.52 MG/DL (0.55-1.30); GLOMERULAR FILTRATION RATE > 60.0 (>39); GLUCOSE, FASTING 140 MG/DL (70-100); POTASSIUM SERUM 3.6 MEQ/L (3.5-5.1); SODIUM LEVEL 142 MEQ/L (136-145); TOTAL PROTEIN 5.3 GM/DL (6.4-8.2)
[2018-08-02] MEDS: TIOTROPIUM INHALER/CAPSULE (SPIRIVA) INH SCH (07:44)
[2018-08-02 08:00] VITALS: BP 142/63
[2018-08-02] MEDS: DOCUSATE SODIUM 100 MG CAP PO SCH ×2 (08:53→20:51)
[2018-08-02] MEDS: PANTOPRAZOLE 40MG INJ (PROTONIX) (C9113) IV SCH ×2 (08:53→20:52)
[2018-08-02] MEDS: FERROUS SULFATE 325MG TAB PO SCH ×2 (08:53→20:51)
[2018-08-02] MEDS: HumaLOG INSULIN (NovoLOG) PER UNIT SC SCH ×4 (08:53→20:52)
[2018-08-02] MEDS: HEPARIN DRIP 25,000 UNITS in APPROPRIATE DILUENT 1 EA IV SCH (08:59)
[2018-08-02 12:00] VITALS: BP 136/63
[2018-08-02] MEDS: amLODIPine 5 MG TAB PO SCH (12:23)
[2018-08-02] MEDS: LOSARTAN 50 MG TAB PO SCH (12:23)
[2018-08-02] MEDS: MORPHINE 1MG/ML IN 0.9% NACL 100ML IV BAG IV PRN (12:26)
--- NOTE | 2018-08-02 15:24 | IPNPDOC ---
Text Note Date of Service The patient was seen on 08/02/18. NOTE SUBJECTIVE: The patient is seen and examined in the ICU today. Patient is complaining about mild discomfort at left heel. No sign of bleeding. Patient has had no bowel movement since admission. OBJECTIVE: VITAL SIGNS: Listed below. GENERAL: Alert, awake, comfortable. HEENT: Normocephalic, atraumatic. Extraocular motor grossly intact. CARDIOVASCULAR: Positive S1, S2, regular rate. LUNGS: Clear to auscultation bilaterally. No wheezes or rhonchi. ABDOMEN: Soft, nontender. Bowel sounds present. MUSCULOSKELETAL: Mild redness and tenderness of left heel. Mild redness noted from left toes. No lower extremity edema appreciated. LABORATORY DATA: Listed below. ASSESSMENT AND PLAN: #. 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 - tPA discontinued on 07/31/18. Currently patient is still on heparin drip. No sign of active bleeding at this moment. - Previously, the patient was on Coumadin and Plavix for her left lower extremi ty deep venous thrombosis (DVT) and stent placement. However, due to the history of gastrointestinal (GI) bleed, the patient has not had Coumadin and Plavix. - The patient has severe peripheral vascular disease. - Physical therapy ordered. - Patient has been on Morphine ACID DIPPER. Pain is under control. Continue monitoring breathing. # Anemia - Patient is on heparin. No sign of active bleeding. There is decrease of hemoglobin and hematocrit. - Blood transfusion on 07/30/18 and 08/01/18. #. History of right-sided axillofemoral and zsdxx-hu-dwrt femoral bypass. - The patient is currently being treated for a femoral limb occlusion. On heparin. #. Chronic obstructive pulmonary disease (COPD). - No sign of exacerbation at this moment. Titrating O2 between 88-92%. #. Diabetes. On insulin. On consistent carbohydrate diet. #. History of upper and lower gastrointestinal bleed. The patient is currently on heparin drip. No sign of active bleeding at this moment. Continue to follow hemoglobin and hematocrit. #. History of deep venous thrombosis (DVT) of the left lower extremity. The patient was off the Coumadin due to a GI bleed. Currently, the patient is on heparin. #. Dyslipidemia. On statin. #. Tobacco abuse. More than 60 years of smoking. Prior to admission, the patient smoked 1/2 pack daily. Smoking cessation discussed with the patient. #. Deep venous thrombosis (DVT) prophylaxis. On heparin drip. A-FIB/CHADSVASC A-FIB History Current/History of A-Fib/PAF?: No VS,Fishbone, I+O VS, Fishbone, I+O Laboratory Tests 08/01/18 18:07 08/02/18 05:15 Red Blood Count 3.06 L, Mean Corpuscular Volume 88.6, Mean Corpuscular Hemoglobin 27.8, Mean Corpuscular Hemoglobin Concent 31.4 L, Red Cell Distribution Width 19.5 H, Neutrophils (%) (Auto) 76.9 H, Lymphocytes (%) (Auto) 7.9 L, Monocytes (%) (Auto) 12.1 H, Eosinophils (%) (Auto) 2.3, Basophils (%) (Auto) 0.3, Neutrophils # (Auto) 6.7, Lymphocytes # (Auto) 0.7 L, Monocytes # (Auto) 1.1 H, Eosinophils # (Auto) 0.2, Basophils # (Auto) 0.0, Calcium Level 7.2 L, Aspartate Amino Transf (AST/SGOT) 19, Alanine Aminotransferase (ALT/SGPT) 19, Alkaline Phosphatase 105, Total Bilirubin 0.6, Total Protein 5.3 L, Albumin 1.8 L Vital Signs Date Time Temp Pulse Resp B/P (MAP) Pulse Ox O2 Delivery O2 Flow Rate FiO2 08/02/18 12:23 136/63 08/02/18 12:23 100 08/02/18 12:00 99.1 86 2.0 08/02/18 08:00 20 I&O- Last 24 Hours up to 6 AM 08/02/18 06:00 Intake Total 980 ml Output Total 815 ml Balance 165 ml JUAN RAMON LLOYD DO August 02, 2018 15:24
[2018-08-02 20:00] VITALS: BP 126/61
[2018-08-02] MEDS: ATORVASTATIN 20 MG TAB PO SCH (20:51)
[2018-08-03] VITALS: BP 124/56
[2018-08-03] MEDS: SUCRALFATE 1 GM TAB PO SCH ×4 (00:02→16:52)
[2018-08-03 04:00] VITALS: BP 127/90
[2018-08-03] MEDS: SODIUM CHLORIDE 0.9% INJ 10 ML SYR IV SCH ×2 (05:31→16:52)
[2018-08-03 05:43] LABS: BASO % 0.3 % (0.0-1.0); EOS # 0.2 10^3/uL (0.0-0.50); EOS % 2.9 % (0.0-3.0); HEMOGLOBIN 8.4 g/dl (12.0-15.5); LYMPH # 0.7 10^3/uL (1.5-4.5); LYMPH % 9.4 % (24.0-44.0); MEAN CORPUSCULAR HEMOGLOBIN 27.5 pg (27.0-33.0); MEAN CORPUSCULAR HGB CONC 31.1 g/dl (32.0-36.5); MEAN CORPUSCULAR VOLUME 88.2 fl (80.0-96.0); MONO # 1.1 10^3/uL (0.0-0.8); MONO % 14.5 % (0.0-5.0); NEUTROPHILS # 5.3 10^3/uL (1.8-7.7); NEUTROPHILS % 72.6 % (36.0-66.0); PLATELET COUNT, AUTOMATED 206 10^3/uL (150-450); RED BLOOD COUNT 3.06 10^6/uL (4.00-5.40); WHITE BLOOD COUNT 7.2 10^3/uL (4.0-10.0)
[2018-08-03 06:22] LABS: ALBUMIN 1.9 GM/DL (3.2-5.2); ALT/SGPT 24 U/L (12-78); BILIRUBIN,TOTAL 0.6 MG/DL (0.2-1.0); BLOOD UREA NITROGEN 8 MG/DL (7-18); CALCIUM LEVEL 7.1 MG/DL (8.8-10.2); CARBON DIOXIDE LEVEL 29 MEQ/L (21-32); CHLORIDE LEVEL 109 MEQ/L (98-107); CREATININE FOR GFR 0.44 MG/DL (0.55-1.30); GLOMERULAR FILTRATION RATE > 60.0 (>39); GLUCOSE, FASTING 135 MG/DL (70-100); POTASSIUM SERUM 3.5 MEQ/L (3.5-5.1); SODIUM LEVEL 142 MEQ/L (136-145); TOTAL PROTEIN 4.8 GM/DL (6.4-8.2)
[2018-08-03 08:05] VITALS: BP 107/52
--- NOTE | 2018-08-03 08:05 | IPNPDOC ---
Subjective Date Seen The patient was seen on 08/03/18. Subjective Chief Complaint/HPI Pt reported 2/10 sharp pain and numbness in left foot. It was noted that posterior tibial and dorsalis pedis pulse was detected via doppler Pt reported no BM since admission, but denies any abdominal pain. Pt is very hard of hearing but reported other than that he is doing well General: Denies: Chills Constitutional: Denies: Chills, Fever Pulmonary: Reports: Cough (non-productive cough); Denies: Dyspnea Cardiovascular: Denies: Chest Pain, Palpitations, Lt Headedness Gastrointestinal: Denies: Nausea, Vomiting, Abdominal Pain Musculoskeletal: Reports: Foot Pain (left foot sharp pain and numbness) Objective Physical Examination General Exam: Positive: Alert, Cooperative, No Acute Distress Eye Exam: Positive: Conjunctiva & lids normal; Negative: Sclera icteric ENT Exam: Positive: Atraumatic, Mucous membr. moist/pink Neck Exam: Positive: Supple Chest Exam: Positive: Clear to auscultation, Normal air movement; Negative: Rales, Rhonchi, Wheezing Heart Exam: Positive: Rate Normal, Regular Rhythm, Normal S1, Normal S2; Negative: Murmurs Abdomen Exam: Positive: BS Hypoactive, Soft Extremity Exam: Positive: Tenderness, Other (erythema of the left foot more obvious on the toes. 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 Pt reported 2/10 sharp pain in left foot; percocet ordered -severe peripheral vascular dx -tPA d/c 07/31/18. Pt on heparin drip; plavix [id number] today, then 81mg daily -Pt on Coumadin and Plavix for DVT and stent placement prior. D/t GI bleed; pt has not had coumadin and plavix since admission; plavix started today -PT, OT, and ARU screening ordered -on Morphine [employer]. Cont to monitor pt -also with hx of right sided axillofemoral and right to left femora bypass (2) Anemia Problem Text: Hg 8.4, roughly stable. On heparin, no active sign of bleeding. -s/p blood transufions 07/30 and 08/01 (3) COPD (chronic obstructive pulmonary disease) Problem Text: Pt about 95% sat on 2-3L NC. Goal to titrate ox 88-92%. (4) Type 2 diabetes mellitus Problem Text: On insulin. On consistent caarbohydrate diet. BS mildly low around 80. Hypoglycemia protocol (5) History of GI bleed Problem Text: hx of upper and lower GI bleed. Currently on heparin drip. No sign of active bleeding at this time. Cont to follow H&H (6) Dyslipidemia Status: Chronic Problem Text: Cont statin (7) Tobacco abuse Problem Text: Chronic tobacco hx of more than 60 years of smoking. Pt smokes about 1/2 pk daily; smoking cessation discussed w/ pt. Plan/VTE VTE Prophylaxis Ordered?: Yes (on heparin drip) VS, I&O, 24H, Fishbone Vital Signs/I&O Vital Signs Date Time Temp Pulse Resp B/P (MAP) Pulse Ox O2 Delivery O2 Flow Rate FiO2 08/03/18 04:00 97.2 93 22 127/90 (102) 95 2.0 I&O- Last 24 Hours up to 6 AM 08/03/18 06:00 Intake Total 859 ml Output Total 1040 ml Balance -181 ml Laboratory Data 24H LABS Laboratory Tests 2 08/02/18 11:44: Bedside Glucose (Misc Panel) 212H 08/02/18 11:58: Activated Partial Thromboplast Time 43.5H 08/02/18 17:22: Bedside Glucose (Misc Panel) 207H 08/02/18 17:36: Activated Partial Thromboplast Time 46.0H 08/02/18 20:41: Bedside Glucose (Misc Panel) 80L 08/02/18 23:54: Activated Partial Thromboplast Time 44.1H 08/03/18 05:25: Activated Partial Thromboplast Time 47.7H, Immature Granulocyte % (Auto) 0.3, White Blood Count 7.2, Red Blood Count 3.06L, Hemoglobin 8.4L, Hematocrit 27.0L, Mean Corpuscular Volume 88.2, Mean Corpuscular Hemoglobin 27.5, Mean Corpuscular Hemoglobin Concent 31.1L, Red Cell Distribution Width 19.0H, Platelet Count 206, Neutrophils (%) (Auto) 72.6H, Lymphocytes (%) (Auto) 9.4L, Monocytes (%) (Auto) 14.5H, Eosinophils (%) (Auto) 2.9, Basophils (%) (Auto) 0.3, Neutrophils # (Auto) 5.3, Lymphocytes # (Auto) 0.7L, Monocytes # (Auto) 1.1H, Eosinophils # (Auto) 0.2, Basophils # (Auto) 0.0, Nucleated Red Blood Cells % (auto) 0.0, Anion Gap 4L, Glomerular Filtration Rate > 60.0, Blood Urea Nitrogen 8, Creatinine 0.44L, Sodium Level 142, Potassium Level 3.5, Chloride Level 109H, Carbon Dioxide Level 29, Calcium Level 7.1L, Aspartate Amino Transf (AST/SGOT) 26, Alanine Aminotransferase (ALT/SGPT) 24, Alkaline Phosphatase 108, Total Bilirubin 0.6, Total Protein 4.8L, Albumin 1.9L, Albumin/Globulin Ratio 0.66L CBC/BMP Laboratory Tests 08/03/18 05:25 Red Blood Count 3.06 L, Mean Corpuscular Volume 88.2, Mean Corpuscular Hemoglo bin 27.5, Mean Corpuscular Hemoglobin Concent 31.1 L, Red Cell Distribution Width 19.0 H, Neutrophils (%) (Auto) 72.6 H, Lymphocytes (%) (Auto) 9.4 L, Monocytes (%) (Auto) 14.5 H, Eosinophils (%) (Auto) 2.9, Basophils (%) (Auto) 0.3, Neutrophils # (Auto) 5.3, Lymphocytes # (Auto) 0.7 L, Monocytes # (Auto) 1.1 H, Eosinophils # (Auto) 0.2, Basophils # (Auto) 0.0, Calcium Level 7.1 L, Aspartate Amino Transf (AST/SGOT) 26, Alanine Aminotransferase (ALT/SGPT) 24, Alkaline Phosphatase 108, Total Bilirubin 0.6, Total Protein 4.8 L, Albumin 1.9 L GME ATTESTATION GME ATTESTATION My faculty preceptor for this patient encounter was physically present during the encounter and was fully available. All aspects of the patient interview, examination, medical decision making process, and medical care plan development were reviewed and approved by the faculty preceptor. The faculty preceptor is aware and concurs with the plan as stated in the body of this note and will attest to such by his/her cosignature. YANIRA SALAMANCA DO August 03, 2018 08:05 JUAN RAMON LLOYD DO August 03, 2018 22:46
[2018-08-03] MEDS: TIOTROPIUM INHALER/CAPSULE (SPIRIVA) INH SCH (08:26)
[2018-08-03] MEDS: HumaLOG INSULIN (NovoLOG) PER UNIT SC SCH ×4 (08:45→21:00)
[2018-08-03] MEDS: PANTOPRAZOLE 40MG INJ (PROTONIX) (C9113) IV SCH ×2 (08:46→21:09)
[2018-08-03] MEDS: FERROUS SULFATE 325MG TAB PO SCH ×2 (08:46→21:09)
[2018-08-03] MEDS: DOCUSATE SODIUM 100 MG CAP PO SCH ×2 (08:46→21:09)
--- NOTE | 2018-08-03 08:56 | IPNPDOC ---
Date Seen The patient was seen on 08/03/18. Progress Note Vascular Surgery: Dr. Martin Hospitalist Dr Martinez PCP: Dr Hull CC: LLE pain HPI: [id number] with a past medical history significant for recent admission for UGIB, EGD 07/10/18 Three non-bleeding angioectasias in the stomach. Treated with argon beam coagulation. A few non-bleeding angioectasias in the duodenum. Treated with argon beam coagulation. Patent biliary stent. Plavix was d/cd at that time. Pt presented 07/28/18 related to LLE pain for LE angiogram with Dr Martin. 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 Pt with h/o Right-sided axillofemoral and [id number] fem/fem bypass. Pt denies any bleeding, has ecchymotic area Rt groin/hip area noted, unchanged and denies pain. Denies any other areas of ecchymosis. Pt states she has had pain in her Left great toe. Denies pain currently. No concerns this AM. Denies any fevers, chills, weakness, fatigue, BOOKER, CP, SOB, cough, palpitations, abdominal pain, N/V/D or changes in bowel or bladder habits. PAST MEDICAL HISTORY: Hypertension. Hyperlipidemia. Type 2 diabetes. COPD. ERCP June 2017 cholangitis/biliary stent. H/O upper and lower GI bleed. EGD on 04/22/2017 that showed multiple (more than 10) small angioectasia of the duodenum treated with argon-beam coagulation. Recent admission for UGIB, EGD 07/10/18 Three non-bleeding angioectasias in the stomach. Treated with argon beam coagulation. A few non-bleeding angioectasias in the duodenum. Treated with argon beam coagulation. Patent biliary stent. chronic anemia Pt with history of vascular disease status post bilateral common iliac artery and angioplasty and stenting as well as Right-sided axillofemoral and llzhs-uy-voop fem/fem bypass. H/O DVT of the left lower extremity and was anticoagulated on warfarin until her admission for GI Bleeding March 2017. PAST SURGICAL HISTORY: Tonsillectomy. Bilateral common iliac artery angioplasty stenting. Right-sided axillofemoral and [id number] fem/fem bypass undetermined date. EGDs and colonoscopies. 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 Treated with argon beam coagulation. A few non-bleeding angioectasias in the duodenum. Treated with argon beam coagulation. Patent biliary stent. ERCP as above. PE: GEN: [id number], appears stated age. No acute distress. Alert and oriented x 3. HEENT: Normocephalic, atraumatic. No facial asymmetry. Moist mucous membranes. CHEST: Regular rate and rhythm, +S1, +S2 LUNGS: Clear to auscultation bilaterally. No wheezes, rales, or rhonchi. Breathing appears symmetric and easy. ABD: Round, soft, non-tender, non-distended. SKIN: Ecchymotic area noted Rt groin/hip area appears to be unchanged from 07/30/18. Left foot toes are still cool to touch. Palpable pulses RLE, LLE non palpable and DP obtained with doppler, monophasic. PT not able to obtain at time of exam with doppler. NEURO: Alert and oriented x 3. No focal deficits appreciated. A&P: [id number] with a past medical history significant for recent admission for UGIB, EGD 07/10 Three non-bleeding angioectasias in the stomach. Treated with argon beam coagulation. A few non-bleeding angioectasias in the duodenum. Treated with argon beam coagulation. Patent biliary stent. Plavix was d/cd at that time. 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 S/P Angiogram as per Dr Martin. S/P arthrectomy of fem-fem limb, s/p ballooning. S/P Thrombolysis per protocol. Pt remains high bleeding risk which was discussed with the pt and the pt's grand dtr as per Dr Martin. Dr Martin aware of ecchymotic area Rt groin/hip area, this appears unchanged today. Plan to d/c Heparin gtt today. Add Plavix 300mg po x 1 today, then 75 mg daily. Recommend No ASA. ARU Clt. PT/OT. s/p Right-sided axillofemoral and yawty-xd-[id number] fem/fem bypass. Plavix has been held since recent GIB 07/10. Plan to restart, no ASA as above. H/O upper and lower GI bleed. EGD on 04/22/2017 that showed multiple (more than 10) small angioectasia of the duodenum treated with argon-beam coagulation. Recent admission for UGIB, EGD 07/10 Three non-bleeding angioectasias in the stomach. Treated with argon beam coagulation. A few non-bleeding angioectasias in the duodenum. Treated with argon beam coagulation. Patent biliary stent. Followed by Dr Santoyo. Plavix was d/cd at that time. Continue PPI Carafate added. acute on chronic anemia. ecchymotic area noted, Dr Martin aware. PRBC x 1 unit 07/30/18. Hgb 8.4 stable. Monitor for bleeding. Monitor CBC. A-FIB/CHADSVASC A-FIB History Current/History of A-Fib/PAF?: No VS, I&O, 24H, Fishbone Vital Signs/I&O Vital Signs Date Time Temp Pulse Resp B/P (MAP) Pulse Ox O2 Delivery O2 Flow Rate FiO2 08/03/18 04:00 97.2 93 22 127/90 (102) 95 2.0 I&O- Last 24 Hours up to 6 AM 08/03/18 06:00 Intake Total 859 ml Output Total 1040 ml Balance -181 ml Laboratory Data 24H LABS Laboratory Tests 2 08/02/18 11:44: Bedside Glucose (Misc Panel) 212H 08/02/18 11:58: Activated Partial Thromboplast Time 43.5H 08/02/18 17:22: Bedside Glucose (Misc Panel) 207H 08/02/18 17:36: Activated Partial Thromboplast Time 46.0H 08/02/18 20:41: Bedside Glucose (Misc Panel) 80L 08/02/18 23:54: Activated Partial Thromboplast Time 44.1H 08/03/18 05:25: Activated Partial Thromboplast Time 47.7H, Immature Granulocyte % (Auto) 0.3, White Blood Count 7.2, Red Blood Count 3.06L, Hemoglobin 8.4L, Hematocrit 27.0L, Mean Corpuscular Volume 88.2, Mean Corpuscular Hemoglobin 27.5, Mean Corpuscular Hemoglobin Concent 31.1L, Red Cell Distribution Width 19.0H, Platelet Count 206, Neutrophils (%) (Auto) 72.6H, Lymphocytes (%) (Auto) 9.4L, Monocytes (%) (Auto) 14.5H, Eosinophils (%) (Auto) 2.9, Basophils (%) (Auto) 0.3, Neutrophils # (Auto) 5.3, Lymphocytes # (Auto) 0.7L, Monocytes # (Auto) 1.1H, Eosinophils # (Auto) 0.2, Basophils # (Auto) 0.0, Nucleated Red Blood Cells % (auto) 0.0, Anion Gap 4L, Glomerular Filtration Rate > 60.0, Blood Urea Nitrogen 8, Creatinine 0.44L, Sodium Level 142, Potassium Level 3.5, Chloride Level 109H, Carbon Dioxide Level 29, Calcium Level 7.1L, Aspartate Amino Transf (AST/SGOT) 26, Alanine Aminotransferase (ALT/SGPT) 24, Alkaline Phosphatase 108, Total Bilirubin 0.6, Total Protein 4.8L, Albumin 1.9L, Albumin/Globulin Ratio 0.66L CBC/BMP Laboratory Tests 08/03/18 05:25 Red Blood Count 3.06 L, Mean Corpuscular Volume 88.2, Mean Corpuscular Hemoglobin 27.5, Mean Corpuscular Hemoglobin Concent 31.1 L, Red Cell Distribution Width 19.0 H, Neutrophils (%) (Auto) 72.6 H, Lymphocytes (%) (Auto) 9.4 L, Monocytes (%) (Auto) 14.5 H, Eosinophils (%) (Auto) 2.9, Basophils (%) (Auto) 0.3, Neutrophils # (Auto) 5.3, Lymphocytes # (Auto) 0.7 L, Monocytes # (Auto) 1.1 H, Eosinophils # (Auto) 0.2, Basophils # (Auto) 0.0, Calcium Level 7.1 L, Aspartate Amino Transf (AST/SGOT) 26, Alanine Aminotransferase (ALT/SGPT) 24, Alkaline Phosphatase 108, Total Bilirubin 0.6, Total Protein 4.8 L, Albumin 1.9 L Sunshine Allison August 03, 2018 08:56
[2018-08-03] MEDS ORDERED: NORCO, ANEXSIA 5/325MG TABLET (HYDROcodone/ACETAMINOPHEN) PO PRN (09:00)
[2018-08-03] MEDS ORDERED: CLOPIDOGREL 300 MG TAB (PLAVIX) PO ONE (09:00)
[2018-08-03 12:13] VITALS: BP 139/96
[2018-08-03] MEDS: LOSARTAN 50 MG TAB PO SCH (12:36)
[2018-08-03] MEDS: SENOKOT S TAB PO SCH (12:36)
[2018-08-03] MEDS: amLODIPine 5 MG TAB PO SCH (12:36)
[2018-08-03 14:59] VITALS: BP 162/70
[2018-08-03] MEDS: ATORVASTATIN 20 MG TAB PO SCH (21:08)
[2018-08-03 22:00] VITALS: BP 156/70
[2018-08-04] MEDS: SUCRALFATE 1 GM TAB PO SCH ×3 (00:12→12:55)
[2018-08-04] MEDS: SODIUM CHLORIDE 0.9% INJ 10 ML SYR IV SCH (05:04)
[2018-08-04 05:20] LABS: BASO % 0.4 % (0.0-1.0); EOS # 0.2 10^3/uL (0.0-0.50); EOS % 2.5 % (0.0-3.0); HEMATOCRIT 27.9 % (36.0-47.0); HEMOGLOBIN 8.8 g/dl (12.0-15.5); LYMPH # 0.6 10^3/uL (1.5-4.5); LYMPH % 8.5 % (24.0-44.0); MEAN CORPUSCULAR HEMOGLOBIN 26.8 pg (27.0-33.0); MEAN CORPUSCULAR HGB CONC 31.5 g/dl (32.0-36.5); MEAN CORPUSCULAR VOLUME 85.1 fl (80.0-96.0); MONO % 13.9 % (0.0-5.0); NEUTROPHILS # 5.4 10^3/uL (1.8-7.7); NEUTROPHILS % 74.2 % (36.0-66.0); PLATELET COUNT, AUTOMATED 245 10^3/uL (150-450); RED BLOOD COUNT 3.28 10^6/uL (4.00-5.40); WHITE BLOOD COUNT 7.3 10^3/uL (4.0-10.0)
[2018-08-04 05:48] LABS: ALT/SGPT 23 U/L (12-78); BLOOD UREA NITROGEN 8 MG/DL (7-18); CALCIUM LEVEL 7.1 MG/DL (8.8-10.2); CARBON DIOXIDE LEVEL 27 MEQ/L (21-32); CHLORIDE LEVEL 108 MEQ/L (98-107); CREATININE FOR GFR 0.46 MG/DL (0.55-1.30); GLOMERULAR FILTRATION RATE > 60.0 (>39); GLUCOSE, FASTING 167 MG/DL (70-100); POTASSIUM SERUM 3.1 MEQ/L (3.5-5.1); SODIUM LEVEL 144 MEQ/L (136-145); TOTAL PROTEIN 5.3 GM/DL (6.4-8.2)
[2018-08-04 06:00] VITALS: BP 150/70
[2018-08-04] MEDS ORDERED: POTASSIUM CHLORIDE 10 MEQ SR TABLET PO ONE (07:45)
[2018-08-04] MEDS: TIOTROPIUM INHALER/CAPSULE (SPIRIVA) INH SCH (07:46)
[2018-08-04] MEDS: SENOKOT S TAB PO SCH (07:51)
[2018-08-04] MEDS: PANTOPRAZOLE 40MG INJ (PROTONIX) (C9113) IV SCH (07:51)
[2018-08-04] MEDS: FERROUS SULFATE 325MG TAB PO SCH (07:51)
[2018-08-04] MEDS: DOCUSATE SODIUM 100 MG CAP PO SCH (07:51)
[2018-08-04] MEDS: HumaLOG INSULIN (NovoLOG) PER UNIT SC SCH ×3 (07:52→17:30)
--- NOTE | 2018-08-04 08:49 | IPNPDOC ---
Date Seen The patient was seen on 08/04/18. Progress Note Vascular Surgery: Dr. Martin Hospitalist Dr Martinez PCP: Dr Hull CC: LLE pain HPI: [id number] with a past medical history significant for recent admission for UGIB, EGD 07/10/18 Three non-bleeding angioectasias in the stomach. Treated with argon beam coagulation. A few non-bleeding angioectasias in the duodenum. Treated with argon beam coagulation. Patent biliary stent. Plavix was d/cd at that time. Pt presented 07/28/18 related to LLE pain for LE angiogram with Dr Martin. 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 Pt with h/o Right-sided axillofemoral and foizn-zp-idgk fem/fem bypass. Pt denies any bleeding, has ecchymotic area Rt groin/hip area noted, unchanged and denies pain. Denies any other areas of ecchymosis. Pt states she has had pain in her Left great toe and the bottom of her foot. Denies pain currently. No concerns this AM. Denies any fevers, chills, weakness, fatigue, BOOKER, CP, SOB, cough, palpitations, abdominal pain, N/V/D or changes in bowel or bladder habits. PAST MEDICAL HISTORY: Hypertension. Hyperlipidemia. Type 2 diabetes. COPD. ERCP June 2017 cholangitis/biliary stent. H/O upper and lower GI bleed. EGD on 04/22/2017 that showed multiple (more than 10) small angioectasia of the duodenum treated with argon-beam coagulation. Recent admission for UGIB, EGD 07/10/18 Three non-bleeding angioectasias in the stomach. Treated with argon beam coagulation. A few non-bleeding angioectasias in the duodenum. Treated with argon beam coagulation. Patent biliary stent. chronic anemia Pt with history of vascular disease status post bilateral common iliac artery and angioplasty and stenting as well as Right-sided axillofemoral and xnyry-ja-vwmt fem/fem bypass. H/O DVT of the left lower extremity and was anticoagulated on warfarin until her admission for GI Bleeding March 2017. PAST SURGICAL HISTORY: Tonsillectomy. Bilateral common iliac artery angioplasty stenting. Right-sided axillofemoral and ukqwf-kv-ltii fem/fem bypass undetermined date. EGDs and colonoscopies. 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 Treated with argon beam coagulation. A few non-bleeding angioectasias in the duodenum. Treated with argon beam coagulation. Patent biliary stent. ERCP as above. PE: GEN: [id number], appears stated age. No acute distress. Alert and oriented x 3. HEENT: Normocephalic, atraumatic. No facial asymmetry. Moist mucous membranes. CHEST: Regular rate and rhythm, +S1, +S2 LUNGS: Clear to auscultation bilaterally. No wheezes, rales, or rhonchi. Breathing appears symmetric and easy. ABD: Round, soft, non-tender, non-distended. SKIN: Ecchymotic area noted Rt arm, Rt groin/hip area appears to be unchanged. Left foot toes are slightly cool to touch. Palpable pulses RLE, LLE non palpable. Foot is warm to touch. NEURO: Alert and oriented x 3. No focal deficits appreciated. A&P: [id number] with a past medical history significant for recent admission for UGIB, EGD 07/10 Three non-bleeding angioectasias in the stomach. Treated with argon beam coagulation. A few non-bleeding angioectasias in the duodenum. Treated with argon beam coagulation. Patent biliary stent. Plavix was d/cd at that time. 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 S/P Angiogram as per Dr Martin. S/P arthrectomy of fem-fem limb, s/p ballooning. S/P Thrombolysis. Pt remains high bleeding risk which was discussed with the pt and the pt's grand dtr as per Dr Martin. Dr Martin aware of ecchymotic area Rt arm, Rt groin/hip area, this appears unchanged today. Heparin gtt d/cd 08/03/18. Continue Plavix 75 mg daily. Recommend No ASA. Not a candidate for ARU PT not yet safe for d/c. s/p Right-sided axillofemoral and jovit-so-salv fem/fem bypass. Plavix has been held since recent GIB 07/10. Plan to restart, no ASA as above. H/O upper and lower GI bleed. EGD on 04/22/2017 that showed multiple (more than 10) small angioectasia of the duodenum treated with argon-beam coagulation. Recent admission for UGIB, EGD 07/10 Three non-bleeding angioectasias in the stomach. Treated with argon beam coagulation. A few non-bleeding angioectasias in the duodenum. Treated with argon beam coagulation. Patent biliary stent. Foll owed by Dr Santoyo. Plavix was d/cd at that time. Continue PPI Carafate added. acute on chronic anemia. ecchymotic area noted, Dr Martin aware. PRBC x 1 unit 07/30/18. Hgb 8.8 stable. Monitor for bleeding. Monitor CBC. A-FIB/CHADSVASC A-FIB History Current/History of A-Fib/PAF?: No VS, I&O, 24H, Fishbone Vital Signs/I&O Vital Signs Date Time Temp Pulse Resp B/P (MAP) Pulse Ox O2 Delivery O2 Flow Rate FiO2 08/04/18 06:00 97.5 90 20 150/70 (96) 94 08/03/18 08:05 2.0 I&O- Last 24 Hours up to 6 AM 08/04/18 06:00 Intake Total 832.5 ml Output Total 700 ml Balance 132.5 ml Laboratory Data 24H LABS Laboratory Tests 2 08/03/18 12:12: Bedside Glucose (Misc Panel) 272H 08/03/18 16:25: Bedside Glucose (Misc Panel) 136H 08/03/18 21:00: Bedside Glucose (Misc Panel) 209H 08/04/18 05:08: Immature Granulocyte % (Auto) 0.5, White Blood Count 7.3, Red Blood Count 3.28L, Hemoglobin 8.8L, Hematocrit 27.9L, Mean Corpuscular Volume 85.1, Mean Corpuscular Hemoglobin 26.8L, Mean Corpuscular Hemoglobin Concent 31.5L, Red Cell Distribution Width 18.7H, Platelet Count 245, Neutrophils (%) (Auto) 74.2H, Lymphocytes (%) (Auto) 8.5L, Monocytes (%) (Auto) 13.9H, Eosinophils (%) (Auto) 2.5, Basophils (%) (Auto) 0.4, Neutrophils # (Auto) 5.4, Lymphocytes # (Auto) 0.6L, Monocytes # (Auto) 1.0H, Eosinophils # (Auto) 0.2, Basophils # (Auto) 0.0, Nucleated Red Blood Cells % (auto) 0.0, Anion Gap 9, Glomerular Filtration Rate > 60.0, Blood Urea Nitrogen 8, Creatinine 0.46L, Sodium Level 144, Potassium Level 3.1L, Chloride Level 108H, Carbon Dioxide Level 27, Calcium Level 7.1L, Aspartate Amino Transf (AST/SGOT) 17, Alanine Aminotransferase (ALT/SGPT) 23, Alkaline Phosphatase 113, Total Bilirubin 1.0#, Total Protein 5.3L, Albumin 2.0L, Albumin/Globulin Ratio 0.61L CBC/BMP Laboratory Tests 08/04/18 05:08 Red Blood Count 3.28 L, Mean Corpuscular Volume 85.1, Mean Corpuscular Hemoglobin 26.8 L, Mean Corpuscular Hemoglobin Concent 31.5 L, Red Cell Distribution Width 18.7 H, Neutrophils (%) (Auto) 74.2 H, Lymphocytes (%) (Auto) 8.5 L, Monocytes (%) (Auto) 13.9 H, Eosinophils (%) (Auto) 2.5, Basophils (%) ( Auto) 0.4, Neutrophils # (Auto) 5.4, Lymphocytes # (Auto) 0.6 L, Monocytes # (Auto) 1.0 H, Eosinophils # (Auto) 0.2, Basophils # (Auto) 0.0, Calcium Level 7.1 L, Aspartate Amino Transf (AST/SGOT) 17, Alanine Aminotransferase (ALT/SGPT) 23, Alkaline Phosphatase 113, Total Bilirubin 1.0 #, Total Protein 5.3 L, Albumin 2.0 L Sunshine Allison August 04, 2018 08:49
[2018-08-04] MEDS ORDERED: CLOPIDOGREL 75 MG TAB PO SCH (09:00)
--- NOTE | 2018-08-04 09:03 | IPNPDOC ---
Subjective Date Seen The patient was seen on 08/04/18. Subjective Chief Complaint/HPI Patient is examined at bedside. She states that she still has 2/10 sharp pain on the left toes in dorsal and ventral side unchanged from yesterday. She reported that she walked yesterday and that when she walks the pain in her foot increased. Denies any other symptoms including fever, chills, nausea, vomiting, chest pain, palpitation, or SOB. Constitutional: Denies: Chills, Fever ENT: Denies: Head Aches Pulmonary: Denies: Dyspnea Cardiovascular: Denies: Chest Pain, Palpitations Gastrointestinal: Denies: Nausea, Vomiting, Abdominal Pain, Diarrhea, Constipation, Melena Musculoskeletal: Reports: Foot Pain (left toes on dorsal and ventral side) Objective Physical Examination General Exam: Positive: Alert, Cooperative, No Acute Distress Eye Exam: Positive: Conjunctiva & lids normal; Negative: Sclera icteric ENT Exam: Positive: Atraumatic, Mucous membr. moist/pink Neck Exam: Positive: Supple Chest Exam: Positive: Clear to auscultation, Normal air movement; Negative: Rales, Rhonchi, Wheezing Heart Exam: Positive: Rate Normal, Regular Rhythm, Normal S1, Normal S2; Negative: Murmurs Abdomen Exam: Positive: Normal bowel sounds, Soft; Negative: Tenderness Extremity Exam: Positive: Tenderness, Other (erythema of the left foot more obvious on the toes. 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 Pt reported 2/10 sharp pain in left toes dorsal and ventral. Increased pain in toes with ambulation on percocet -severe peripheral vascular dx -tPA d/c 07/31/18. Pt on heparin drip; s/p 325mg X1, on 81mg daily -Pt on Coumadin and Plavix for DVT and stent placement prior. D/t GI bleed; pt has not had coumadin and plavix since admission; plavix started today -on Morphine [employer]. Cont to monitor pt -also with hx of right sided axillofemoral and right to left femora bypass -Pt not a candidate for ARU, not safe for d/c at this point (2) Anemia Problem Text: Hg 8.8, roughly stable. Heparin d/c. On Plavix, no active sign of bleeding. -s/p blood transufions 07/30 and 08/01 (3) COPD (chronic obstructive pulmonary disease) Problem Text: Pt about 93% sat on 2-3L NC. Goal to titrate ox 88-92%. (4) Type 2 diabetes mellitus Problem Text: On insulin. On consistent carbohydrate diet. Home med Januvia and Glimpiride on hold. On sliding scale insulin with hypoglycemia protocol (5) History of GI bleed Problem Text: hx of upper and lower GI bleed. On Plavix. Denies blood in stool. No sign of active bleeding at this time. Cont to follow H&H (6) Dyslipidemia Status: Chronic Problem Text: Cont statin (7) Tobacco abuse Problem Text: Chronic tobacco hx of more than 60 years of smoking. Pt smokes about 1/2 pk daily; smoking cessation discussed w/ pt. Plan/VTE VTE Prophylaxis Ordered?: Yes (plavix) VS, I&O, 24H, Fishbone Vital Signs/I&O Vital Signs Date Time Temp Pulse Resp B/P (MAP) Pulse Ox O2 Delivery O2 Flow Rate FiO2 08/04/18 06:00 97.5 90 20 150/70 (96) 94 08/03/18 08:05 2.0 I&O- Last 24 Hours up to 6 AM 08/04/18 06:00 Intake Total 832.5 ml Output Total 700 ml Balance 132.5 ml Laboratory Data 24H LABS Laboratory Tests 2 08/03/18 12:12: Bedside Glucose (Misc Panel) 272H 08/03/18 16:25: Bedside Glucose (Misc Panel) 136H 08/03/18 21:00: Bedside Glucose (Misc Panel) 209H 08/04/18 05:08: Immature Granulocyte % (Auto) 0.5, White Blood Count 7.3, Red Blood Count 3.28L, Hemoglobin 8.8L, Hematocrit 27.9L, Mean Corpuscular Volume 85.1, Mean Corpuscular Hemoglobin 26.8L, Mean Corpuscular Hemoglobin Concent 31.5L, Red Cell Distribution Width 18.7H, Platelet Count 245, Neutrophils (%) (Auto) 74.2H, Lymphocytes (%) (Auto) 8.5L, Monocytes (%) (Auto) 13.9H, Eosinophils (%) (Auto) 2.5, Basophils (%) (Auto) 0.4, Neutrophils # (Auto) 5.4, Lymphocytes # (Auto) 0.6L, Monocytes # (Auto) 1.0H, Eosinophils # (Auto) 0.2, Basophils # (Auto) 0.0, Nucleated Red Blood Cells % (auto) 0.0, Anion Gap 9, Glomerular Filtration Rate > 60.0, Blood Urea Nitrogen 8, Creatinine 0.46L, Sodium Level 144, Potassium Level 3.1L, Chloride Level 108H, Carbon Dioxide Level 27, Calcium Level 7.1L, As partate Amino Transf (AST/SGOT) 17, Alanine Aminotransferase (ALT/SGPT) 23, Alkaline Phosphatase 113, Total Bilirubin 1.0#, Total Protein 5.3L, Albumin 2.0L, Albumin/Globulin Ratio 0.61L CBC/BMP Laboratory Tests 08/04/18 05:08 Red Blood Count 3.28 L, Mean Corpuscular Volume 85.1, Mean Corpuscular Hemoglobin 26.8 L, Mean Corpuscular Hemoglobin Concent 31.5 L, Red Cell Distribu tion Width 18.7 H, Neutrophils (%) (Auto) 74.2 H, Lymphocytes (%) (Auto) 8.5 L, Monocytes (%) (Auto) 13.9 H, Eosinophils (%) (Auto) 2.5, Basophils (%) (Auto) 0.4, Neutrophils # (Auto) 5.4, Lymphocytes # (Auto) 0.6 L, Monocytes # (Auto) 1.0 H, Eosinophils # (Auto) 0.2, Basophils # (Auto) 0.0, Calcium Level 7.1 L, Aspartate Amino Transf (AST/SGOT) 17, Alanine Aminotransferase (ALT/SGPT) 23, Alkaline Phosphatase 113, Total Bilirubin 1.0 #, Total Protein 5.3 L, Albumin 2.0 L YANIRA SALAMANCA DO August 04, 2018 09:03
[2018-08-04] MEDS ORDERED: CLOP75TA2 PO (09:38)
[2018-08-04] MEDS ORDERED: SUCR1TA PO (09:38)
--- NOTE | 2018-08-04 09:51 | DS.PDOC ---
Discharge Summary General Date of Admission July 28, 2018 at 10:09 Date of Discharge 08/04/18 Primary Care Physician: Jr Hull Collins Attending Physician: Umang Martin MD Specialist/Consultants Involve: JUAN RAMON LLOYD DO Discharge Summary PROCEDURES PERFORMED DURING STAY: LLE angiogram 07/28, 07/29, 07/30, 07/31. ADMITTING DIAGNOSES: 1. 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 2. Hypertension. 3. Hyperlipidemia. 4. Type 2 diabetes. 5. COPD. 6. ERCP June 2017 cholangitis/biliary stent. 7. H/O upper and lower GI bleed. EGD on 04/22/2017 that showed multiple (more than 10) small angioectasia of the duodenum treated with argon-beam coagulation. Recent admission for UGIB, EGD 07/10/18 Three non-bleeding angioectasias in the stomach. Treated with argon beam coagulation. A few non- bleeding angioectasias in the duodenum. Treated with argon beam coagulation. Patent biliary stent. 8. chronic anemia 9. Pt with history of vascular disease status post bilateral common iliac artery and angioplasty and stenting as well as Right-sided axillofemoral and [id number]-ok-[id number] fem/fem bypass. 10. H/O DVT of the left lower extremity and was anticoagulated on warfarin until her admission for GI Bleeding March 2017. DISCHARGE DIAGNOSES: 1. 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 S/P Angiogram as per Dr Martin. S/P arthrectomy of fem-fem limb, s/p ballooning. S/P Thrombolysis. 2. Hypertension. 3. Hyperlipidemia. 4. Type 2 diabetes. 5. COPD. 6. ERCP June 2017 cholangitis/biliary stent. 7. H/O upper and lower GI bleed. EGD on 04/22/2017 that showed multiple (more than 10) small angioectasia of the duodenum treated with argon-beam coagulation. Recent admission for UGIB, EGD 07/10/18 Three non-bleeding angioectasias in the stomach. Treated with argon beam coagulation. A few non- bleeding angioectasias in the duodenum. Treated with argon beam coagulation. Patent biliary stent. 8. chronic anemia 9. Pt with history of vascular disease status post bilateral common iliac artery and angioplasty and stenting as well as Right-sided axillofemoral and [id number]-[id number]-lhwb fem/fem bypass. 10. H/O DVT of the left lower extremity and was anticoagulated on warfarin until her admission for GI Bleeding March 2017. HISTORY OF PRESENT ILLNESS: 78yoF with a past medical history significant for recent admission for UGIB, EGD 07/10/18 Three non-bleeding angioectasias in the stomach. Treated with argon beam coagulation. A few non-bleeding angioectasias in the duodenum. Treated with argon beam coagulation. Patent biliary stent. Plavix was d/cd at that time. Pt presented 07/28/18 related to LLE pain for LE angiogram with Dr Martin. 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 Pt with h/o Right-sided axillofemoral and dznvm-wx-[id number] fem/fem bypass. HOSPITAL COURSE: Pt presented 07/28/18 related to LLE pain for LE angiogram with Dr Martin. 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 Pt with h/o Right-sided axillofemoral and ggngl-qg-wuhx fem/fem bypass. LLE limb ischemia found secondary to cross femoral limb occlusion. The pt is S/P Angiogram as per Dr Martin. S/P arthrectomy of fem-fem limb, s/p ballooning. S/P Thrombolysis per protocol. Pt remains high bleeding risk which was discussed with the pt and the pt's grand dtr as per Dr Martin. Dr Martin aware of ecchymotic area Rt arm, Rt groin/hip area, which has been unchanged. Heparin gtt d/cd 08/03/18. S/P 1 u PRBC 07/30 and 08/01/18. Continue Plavix 75 mg daily. Recommend No ASA. Plan for D/C home today with home care if cleared by PT. DISCHARGE MEDICATIONS: Please see below. ALLERGIES: Please see below. PHYSICAL EXAMINATION ON DISCHARGE: VITAL SIGNS: Please see below. GEN: 78yoF, appears stated age. No acute distress. Alert and oriented x 3. HEENT: Normocephalic, atraumatic. No facial asymmetry. Moist mucous membranes. CHEST: Regular rate and rhythm, +S1, +S2 LUNGS: Clear to auscultation bilaterally. No wheezes, rales, or rhonchi. Breathing appears symmetric and easy. ABD: Round, soft, non-tender, non-distended. SKIN: Ecchymotic area noted Rt groin/hip area appears to be unchanged. Left foot toes are slightly cool to touch. Palpable pulses RLE, LLE non palpable. Foot is warm to touch. NEURO: Alert and oriented x 3. No focal deficits appreciated. LABORATORY DATA: Please see below. IMAGING: LLE angiogram, reports pending. ACTIVITY: As tolerated. DIET: CC DISCHARGE PLAN: D/C home with home care If cleared as per PT today. DISCHARGE INSTRUCTIONS: 1. Continue Plavix 75 mg daily. 2. No ASA 3. FU with PCP 5-7 days 4. FU with Lucy Martin 1 week. 5. Monitor for any bleeding or increased ecchymosis and call with any changes. 6. Continue with carafate QID, PPI BID. ITEMS TO FOLLOWUP ON ON OUTPATIENT: 1. Recheck BMP. S/P KCL 40 meq po x 1 today, K3.1. 2. Recheck CBC, Hgb stable 8.8 on day of D/C. DISCHARGE CONDITION: Stable TIME SPENT ON DISCHARGE: Greater than 30 minutes. Vital Signs/I&Os Vital Signs Date Time Temp Pulse Resp B/P (MAP) Pulse Ox O2 Delivery O2 Flow Rate FiO2 08/04/18 06:00 97.5 90 20 150/70 (96) 94 08/03/18 08:05 2.0 I&O- Last 24 Hours up to 6 AM 08/04/18 06:00 Intake Total 832.5 ml Output Total 700 ml Balance 132.5 ml Laboratory Data Labs 24H Laboratory Tests 2 08/03/18 12:12: Bedside Glucose (Misc Panel) 272H 08/03/18 16:25: Bedside Glucose (Misc Panel) 136H 08/03/18 21:00: Bedside Glucose (Misc Panel) 209H 08/04/18 05:08: Immature Granulocyte % (Auto) 0.5, White Blood Count 7.3, Red Blood Count 3.28L, Hemoglobin 8.8L, Hematocrit 27.9L, Mean Corpuscular Volume 85.1, Mean Corpuscular Hemoglobin 26.8L, Mean Corpuscular Hemoglobin Concent 31.5L, Red Cell Distribution Width 18.7H, Platelet Count 245, Neutrophils (%) (Auto) 74.2H, Lymphocytes (%) (Auto) 8.5L, Monocytes (%) (Auto) 13.9H, Eosinophils (%) (Auto) 2.5, Basophils (%) (Auto) 0.4, Neutrophils # (Auto) 5.4, Lymphocytes # (Auto) 0.6L, Monocytes # (Auto) 1.0H, Eosinophils # (Auto) 0.2, Basophils # (Auto) 0.0, Nucleated Red Blood Cells % (auto) 0.0, Anion Gap 9, Glomerular Filtration Rate > 60.0, Blood Urea Nitrogen 8, Creatinine 0.46L, Sodium Level 144, Potassium Level 3.1L, Chloride Level 108H, Carbon Dioxide Level 27, Calcium Level 7.1L, Aspartate Amino Transf (AST/SGOT) 17, Alanine Aminotransferase (ALT/SGPT) 23, Alkaline Phosphatase 113, Total Bilirubin 1.0#, Total Protein 5.3L, Albumin 2.0L , Albumin/Globulin Ratio 0.61L CBC/BMP Laboratory Tests 08/04/18 05:08 Red Blood Count 3.28 L, Mean Corpuscular Volume 85.1, Mean Corpuscular Hemoglobin 26.8 L, Mean Corpuscular Hemoglobin Concent 31.5 L, Red Cell Distribution Width 18.7 H, Neutrophils (%) (Auto) 74.2 H, Lymphocytes (%) (Auto) 8.5 L, Monocytes (%) (Auto) 13.9 H, Eosinophils (%) (Auto) 2.5, Basophils (%) (Auto) 0.4, Neutrophils # (Auto) 5.4, Lymphocytes # (Auto) 0.6 L, Monocytes # (Auto) 1.0 H, Eosinophils # (Auto) 0.2, Basophils # (Auto) 0.0, Calcium Level 7.1 L, Aspartate Amino Transf (AST/SGOT) 17, Alanine Aminotransferase (ALT/SGPT) 23, Alkaline Phosphatase 113, Total Bilirubin 1.0 #, Total Protein 5.3 L, Albumin 2.0 L FSBS Laboratory Tests Test 08/03/18 12:12 08/03/18 16:25 08/03/18 21:00 Range/Units Bedside Glucose (Misc Panel) 272 136 209 83-110 MG/DL Discharge Medications Scheduled Amlodipine Besylate (Amlodipine Besylate) 5 Mg Tablet, 5 MG PO DAILY, (Reported) TAKES AT NOON Aspirin (Aspirin EC) 81 Mg Tablet.dr, 81 MG PO QPM, (Reported) Atorvastatin Calcium (Atorvastatin Calcium) 40 Mg Tab, 40 MG PO QHS, (Reported) Clopidogrel Bisulfate (Clopidogrel) 75 Mg Tablet, 75 MG PO DAILY Ferrous Sulfate (Ferrous Sulfate) 325 Mg Tablet, 325 MG PO BID, (Reported) Glimepiride (Glimepiride) 2 Mg Tablet, 2 MG PO BID, (Reported) Losartan Potassium (Losartan Potassium) 50 Mg Tablet, 50 MG PO DAILY, (Reported) TAKES AT NOON Metformin HCl (Metformin HCl ER) 500 Mg Tab.er.24h, 1,000 MG PO BID, (Reported) Pantoprazole Sodium (Protonix) 40 Mg Tab, 40 MG PO BID, (Reported) Sitagliptin (Januvia) 50 Mg Tab, 50 MG PO DAILY, (Reported) Sucralfate (Sucralfate) 1 Gm Tablet, 1 GM PO Q6H Tiotropium [place] (Spiriva) 18 Mcg Cap, 1 CAP INH DAILY, (Reported) Allergies Coded Allergies: No Known Allergies (Verified , 02/24/06) Sunshine Allison August 04, 2018 09:51
[2018-08-04] MEDS: amLODIPine 5 MG TAB PO SCH (12:55)
[2018-08-04 12:56] VITALS: BP 184/81
[2018-08-04] MEDS: LOSARTAN 50 MG TAB PO SCH (12:56)
[2018-08-04 14:00] VITALS: BP 147/68
--- NOTE | 2018-08-28 08:22 | REPIR ---
DATE OF PROCEDURE: 07/28/2018 PREOPERATIVE DIAGNOSIS: Left foot ischemia, thrombosed right to left femoral-femoral limb of a right axillobifemoral bypass graft. POSTOPERATIVE DIAGNOSIS: Left foot ischemia, thrombosed right to left femoral-femoral limb of a right axillobifemoral bypass graft. PROCEDURE: Ultrasound-guided right basilic vein 50 cm PICC line placement. ATTENDING SURGEON: Dr. Debbi Martin TANK TRUCK LOADER: Suri Sharma and Cynthia Siddiqui INDICATION: The patient is a 78-year-old female with ischemia of the left lower extremity who is undergoing thrombolysis of her left lower extremity and requires access for blood draws and instillation of medication. ANETHESIA: Local with sedation with 2 mg Versed, 199 mcg of fentanyl. FLUORO TIME: 0.5 minutes. CONTRAST: None. COMPLICATIONS: None. DRAINS: None. SPECIMENS: None. IMPLANTS: None. DESCRIPTION OF PROCEDURE: The patient was taken to the angiography suite and placed supine on the angiography room table and then prepped and draped in a standard surgical fashion. The right basilic vein was cannulated using ultrasound guidance and a PICC line was placed which was 50 cm in length with the tip in the superior vena cava/right atrial junction. Both ports were aspirated and noted to aspirate easily and then flushed with heparinized saline. Dressings were then applied. The patient tolerated the procedure well. The patient was transferred to the holding area. The PICC was stable for use for access.
--- NOTE | 2018-08-28 08:43 | REPIR ---
DATE OF PROCEDURE: 07/29/2018 ATTENDING SURGEON: Dr. Nohemi Martin ASSISTANTS: Brent Magallanes and Cynthia Siddiqui PREOPERATIVE DIAGNOSIS: Left lower extremity ischemia. POSTOPERATIVE DIAGNOSIS: Left lower extremity ischemia. PROCEDURE: Left lower extremity arterial thrombolysis followup. Left lower extremity angiogram. INDICATION: Patient is 78-year-old female with occlusion of her crossed femoral limb of her right axillobifemoral bypass graft who has been undergoing thrombolysis and will now undergo an angiogram of the left lower extremity. ANESTHESIA: Local with sedation. SEDATION TIME: Was from 1313 to 1322 for a total 22 minutes. CONTRAST: 4 mL of Isovue-300. COMPLICATIONS: None. DRAINS: None. SPECIMENS: None. PROCEDURE: The patient was taken to the angiography suite, placed supine on the angiography room table and then prepped and draped in a standard surgical fashion. The infusion catheter was removed over a Bentson wire. An angiogram was performed showing continued thrombus within the left lower extremity. A new infusion catheter was placed and thrombolysis reinitiated. Dressings were then applied. The patient tolerated the procedure well. All instrument, sponge, and needle counts were correct at the end the case. There were no complications. Dr. Martin was present for directed the entire case. The patient was transferred to holding area and subsequently to the intensive care unit (ICU) in stable condition.
--- NOTE | 2018-08-28 09:16 | REPIR ---
DATE OF PROCEDURE: 07/30/2018 ATTENDING SURGEON: Dr. Nohemi Martin ASSISTANTS: Brent Magallanes and Cynthia Siddiqui PREOPERATIVE DIAGNOSIS: Left lower extremity ischemia. POSTOPERATIVE DIAGNOSIS: Left lower extremity ischemia. PROCEDURE: Lysis followup. Left lower extremity angiogram. Right iliofemoral angiogram. Exchange of infusion catheter times two. Left superficial femoral and popliteal artery angioplasty and stent with a 6 x 120 ALFREDO drug eluting stent postdilated with a 5 x 100 balloon. Left superficial femoral artery angioplasty with 5 x 200 balloon. Left popliteal artery angioplasty 5 x 200 balloon. INDICATION: The patient is a 78-year-old female with left lower extremity ischemia who has was undergoing thrombolysis and will now undergo a left lower extremity thrombolysis followup with angiography. ANESTHESIA: Local. FLUORO TIME: 2.2 minutes. CONTRAST: 8 mL. HEPARIN: None. COMPLICATIONS: None. DRAINS: None. SPECIMENS: None. IMPLANTS: None. PROCEDURE: The patient was taken to the angiography suite, placed supine on the angiography room table and then prepped and draped in a standard surgical fashion. The infusion catheters were removed over a Bentson wire and angiogram was performed showing stenosis in the left superficial femoral artery and popliteal artery. The left superficial femoral and popliteal artery then underwent angioplasty and stenting with 6 x 120 ALFREDO stent and were postdilated with 5 x 100 balloon. The left popliteal artery with angioplastied with a 5 x 100 balloon. A completion angiogram showed residual thrombus within the distal tibial vessels, but the superficial femoral and popliteal arteries be widely patent. Infusion catheter were placed and thrombolysis was reinitiated. Dressings were then applied. The patient tolerated procedure well. All instrument, sponge, and needle counts were correct at the end the case. There were no complications. Dr. Martin was present for and directed the entire case. The patient was transferred to the ICU for continued left lower extremity arterial thrombolysis.
--- NOTE | 2018-08-28 09:41 | REPIR ---
DATE OF PROCEDURE: 07/31/2018 ATTENDING SURGEON: Dr. Nohemi Martin ASSISTANTS: Brent Magallanes and Caty Orellana PREOPERATIVE DIAGNOSES: Left lower extremity ischemia. Left lower extremity arterial thrombolysis. POSTOPERATIVE DIAGNOSES: Left lower extremity ischemia. Left lower extremity arterial thrombolysis. PROCEDURE: Left lower extremity angiogram. Left superficial femoral artery angioplasty with 6 x 100 balloon. Right common femoral artery angioplasty with 6 x 100 balloon. Right bypass graft angioplasty with 6 x 100 balloon. INDICATION: The patient is a 78-year-old female who has been undergoing thrombolysis who will now undergo a left lower extremity angiogram with possible angioplasty, stent and/or atherectomy. ANESTHESIA: Local with 20 mL of local. FLUORO TIME: 1.2 minutes. CONTRAST: 6 mL. HEPARIN: None. COMPLICATIONS: None. DRAINS: None. SPECIMENS: None. IMPLANTS: None. PROCEDURE: Patient was taken to the angiography suite, placed supine. The catheters were removed over Bentson wires and an angiogram was performed. This showed stenosis at the graft to the left superficial femoral artery anastomosis, which was angioplastied with 6 x 100 balloon. There was also stenosis at the right bypass graft to femoral artery anastomosis and this was angioplastied with 6 x 100 balloon. Completion angiography showed resolution of the stenosis with good flow. The sheaths were removed and MYNX closure device was used close the arteriotomy with an additional 10 minutes of adjunctive pressure applied for hemostasis. Dressings were then applied. The patient tolerated the procedure well. All instrument, sponge, needle counts were correct at the end of case. There were no complications. Dr. Martin was present for and directed the entire case. The patient was transferred to the holding area and subsequently to the ICU in stable condition.
--- NOTE | 2018-08-31 14:21 | REPIR ---
DATE OF PROCEDURE: 07/30/2018 PREOPERATIVE DIAGNOSIS: Dysfunctional left basilic vein peripherally inserted central catheter (PICC) line. POSTOPERATIVE DIAGNOSIS: Dysfunctional left basilic vein PICC line. PROCEDURE: Left basilic vein PICC line exchange. ATTENDING SURGEON: Dr. Nohemi Martin LOCKSTITCH SLEEVE SETTER: Brent Magallanes and Cynthia Siddiqui ANESTHESIA: DESCRIPTION OF PROCEDURE: Patient was taken to the angiography suite, placed supine on the angiography room table. A wire was advanced through the existing PICC line, which was removed, and a new PICC line cut to 47 cm was placed under fluoroscopic guidance. Both ports were aspirated and noted to aspirate easily and then flushed with heparinized saline. Dressings were then applied. Patient tolerated the procedure well. All instrument, sponge, and needle counts were correct at the end the case. There were no complications. Dr. Martin was present for and directed the entire case. The PICC line is stable for use for access.
== END 2018-08-04 18:34 | disposition home or self-care (01) | DRG 254 ==
LOC: M IRPRO 06:42 → M ICU 10:09 → M MSPAV 08-03 14:48 → UNDODISIN 08-04 17:41
PROVIDERS: ADMIT Surgery Vascular Surgery; ATTEND Surgery Vascular Surgery
PROC: 02H633Z Insertion of Infusion Device into Right Atrium, Percutaneous Approach (ICD-10-PCS; 2018-07-28)
PROC: B244ZZZ Ultrasonography of Right Heart (ICD-10-PCS; 2018-07-28)
PROC: B518ZZA Fluoroscopy of Superior Vena Cava, Guidance (ICD-10-PCS; 2018-07-28)
PROC: 3E05317 Introduction of Other Thrombolytic into Peripheral Artery, Percutaneous Approach (ICD-10-PCS; 2018-07-28)
PROC: B41G1ZZ Fluoroscopy of Left Lower Extremity Arteries using Low Osmolar Contrast (ICD-10-PCS; 2018-07-28)
PROC: B41G1ZZ Fluoroscopy of Left Lower Extremity Arteries using Low Osmolar Contrast (ICD-10-PCS; 2018-07-29)
PROC: 3E05317 Introduction of Other Thrombolytic into Peripheral Artery, Percutaneous Approach (ICD-10-PCS; 2018-07-29)
PROC: 047L3DZ Dilation of Left Femoral Artery with Intraluminal Device, Percutaneous Approach (ICD-10-PCS; principal; 2018-07-30)
PROC: 047N3DZ Dilation of Left Popliteal Artery with Intraluminal Device, Percutaneous Approach (ICD-10-PCS; 2018-07-30)
PROC: B2141ZZ Fluoroscopy of Right Heart using Low Osmolar Contrast (ICD-10-PCS; 2018-07-30)
PROC: 02PA33Z Removal of Infusion Device from Heart, Percutaneous Approach (ICD-10-PCS; 2018-07-30)
PROC: 02H633Z Insertion of Infusion Device into Right Atrium, Percutaneous Approach (ICD-10-PCS; 2018-07-30)
PROC: B41G1ZZ Fluoroscopy of Left Lower Extremity Arteries using Low Osmolar Contrast (ICD-10-PCS; 2018-07-30)
PROC: 3E05317 Introduction of Other Thrombolytic into Peripheral Artery, Percutaneous Approach (ICD-10-PCS; 2018-07-30)
PROC: 30233N1 Transfusion of Nonautologous Red Blood Cells into Peripheral Vein, Percutaneous Approach (ICD-10-PCS; 2018-07-30)
PROC: 047L3ZZ Dilation of Left Femoral Artery, Percutaneous Approach (ICD-10-PCS; 2018-07-31)
PROC: 047Y3ZZ Dilation of Lower Artery, Percutaneous Approach (ICD-10-PCS; 2018-07-31)
PROC: B41G1ZZ Fluoroscopy of Left Lower Extremity Arteries using Low Osmolar Contrast (ICD-10-PCS; 2018-07-31)
DX: T82.868A Thrombosis due to vascular prosthetic devices, implants and grafts, initial encounter (principal); I10 Essential (primary) hypertension; J44.9 Chronic obstructive pulmonary disease, unspecified; E78.5 Hyperlipidemia, unspecified; E11.51 Type 2 diabetes mellitus with diabetic peripheral angiopathy without gangrene; K31.819 Angiodysplasia of stomach and duodenum without bleeding; D64.9 Anemia, unspecified; Z79.899 Other long term (current) drug therapy; Z79.82 Long term (current) use of aspirin; F17.200 Nicotine dependence, unspecified, uncomplicated; I99.8 Other disorder of circulatory system; Y83.2 Surgical operation with anastomosis, bypass or graft as the cause of abnormal reaction of the patient, or of later complication, without mention of misadventure at the time of the procedure

== ENCOUNTER 2018-08-05 09:53 | Emergency (ER) | payer MEDICARE ==
[~2018-08-05] VITALS: Ht 170.2 cm; Wt 54.5 kg
[~2018-08-05 09:53] MED LIST changes: +ASPI-161 PO; +CLOP75TA2 PO; +METF500T4 PO; +SUCR1TA PO
[2018-08-05 09:54] VITALS: BP 138/64
== END 2018-08-05 12:36 | disposition home or self-care (01) ==
LOC: M ED 09:53
DX: M79.672 Pain in left foot (principal); E11.9 Type 2 diabetes mellitus without complications; I10 Essential (primary) hypertension; M54.9 Dorsalgia, unspecified; E78.5 Hyperlipidemia, unspecified; J44.9 Chronic obstructive pulmonary disease, unspecified; K21.9 Gastro-esophageal reflux disease without esophagitis; G47.30 Sleep apnea, unspecified; H40.9 Unspecified glaucoma; I95.9 Hypotension, unspecified; Z86.718 Personal history of other venous thrombosis and embolism; Z79.4 Long term (current) use of insulin; Z79.899 Other long term (current) drug therapy

== ENCOUNTER 2018-08-10 11:26 | Inpatient (IN) | payer MEDICARE ==
--- NOTE | 2018-08-10 12:22 | HPEPDOC ---
[facility] Medical History & Physical Date of Admission August 10, 2018 History and Physical ATTENDING: Dr. 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 S/P Angiogram as per Dr Martin with arthrectomy of fem-fem limb, s/p ballooning S/P Thrombolysis. Plavix was restarted at that time. Pt followed up in the office today related to recurrent LLE pain, pain in the left foot and left toes as well as purplish discoloration of the left toes. Admission is arranged for further evaluation of LLE. Denies any fevers, chills, weakness, fatigue, BOOKER, CP, SOB, cough, palpitations, abdominal pain, N/V/D or changes in bowel or bladder habits. PAST MEDICAL HISTORY: Hypertension. Hyperlipidemia. Type 2 diabetes. COPD. ERCP June 2017 cholangitis/biliary stent. H/O upper and lower GI bleed. EGD on 04/22/2017 that showed multiple (more than 10) small angioectasia of the duodenum treated with argon-beam coagulation. Recent admission for UGIB, EGD 07/10/18 Three non-bleeding angioectasias in the stomach. Treated with argon beam coagulation. A few non-bleeding angioectasias in the duodenum. Treated with argon beam coagulation. Patent biliary stent. chronic anemia history of vascular disease status post bilateral common iliac artery and angioplasty and stenting. H/O DVT of the left lower extremity and was anticoagulated on warfarin until her admission for GI Bleeding March 2017. PAST SURGICAL HISTORY: Tonsillectomy. Bilateral common iliac artery angioplasty stenting. EGDs and colonoscopies. 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 Treated with argon beam coagulation. A few non-bleeding angioectasias in the duodenum. Treated with argon beam coagulation. Patent biliary stent. ERCP as above. Right-sided axillofemoral and bjgqc-xr-zlxk fem/fem bypass undetermined date. FAMILY HISTORY: Father with a history of coronary artery disease. Mother with a history of lung cancer. He has a sister with a history of lung cancer. Brother had amyotrophic lateral sclerosis (ALS). SOCHX: Resides in: [facility] Marital Status: Tobacco use: 1-2 ppd ETOH: denies Illicit Drugs: Denies ROS: As noted in HPI, otherwise 11pt ROS of systems reviewed and unremarkable. PE: GEN: 78yoF, appears stated age. No acute distress. Alert and oriented x 3. HEENT: Normocephalic, atraumatic. No facial asymmetry. Moist mucous membranes. CHEST: Regular rate and rhythm, +S1, +S2 LUNGS: Clear to auscultation bilaterally. No wheezes, rales, or rhonchi. Breathing appears symmetric and easy. ABD: Round, soft, non-tender, non-distended. SKIN: No rashes. There is purple discoloration of the left foot and toes with capillary refill of the toes 3-4 seconds. A very faint DP pulses obtained with Doppler, PT is unobtainable with doppler. NEURO: Alert and oriented x 3. No focal deficits appreciated. Admission labs pending. Arterial US LEs pending. 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 S/P Angiogram as per Dr Martin with arthrectomy of fem-fem limb, s/p ballooning S/P Thrombolysis. Plavix was restarted at that time. Pt followed up in the office today related to recurrent LLE pain, pain in the left foot and left toes as well as purplish discoloration of the left toes. The patient will be admitted to M/S to Dr. Martin's service. LLE pain/limb ischemia H/O recent cross femoral limb occlusion. S/P arthrectomy of fem-fem limb, s/p ballooning, Thrombolysis. IVF at 50cc/hr. Heparin drip was initiated per protocol. Patient is nothing by mouth for now. Request STAT arterial ultrasound LEs. CBC/CMP/PTT pending. s/p Right-sided axillofemoral and mmqvb-[id number] fem/fem bypass. Plavix was restarted at discharge 08/04/18. H/O upper and lower GI bleed. EGD on 04/22/2017 that showed multiple (more than 10) small angioectasia of the duodenum treated with argon-beam coagulation. Recent admission for UGIB, EGD 07/10 Three non-bleeding angioectasias in the stomach. Treated with argon beam coagulation. A few non-bleeding angioectasias in the duodenum. Treated with argon beam coagulation. Patent biliary stent. Follows with Dr Santoyo. Continue PPI Continue Carafate chronic anemia. CBC pending. Monitor for bleeding. FOB pending. Monitor need for transfusion. Hypertension. Amlodipine/losartan as outpt. Hyperlipidemia. Statin Type 2 diabetes. Hold po meds. Pt NPO. SSI. COPD. O2 as needed. Tobacco use. Continue to smoke 1-2 ppd. Reinforced cessation. Vital Signs Admission VS pending. Wt 117 pounds in office today. Laboratory Data Labs 24H admission CBC/CMP/PT/PTT pending. Home Medications Scheduled Amlodipine Besylate (Amlodipine Besylate) 5 Mg Tablet, 5 MG PO DAILY TAKES AT NOON Atorvastatin Calcium (Atorvastatin Calcium) 40 Mg Tab, 40 MG PO QHS Clopidogrel Bisulfate (Clopidogrel) 75 Mg Tablet, 75 MG PO DAILY TAKES AT NOON Ferrous Sulfate (Ferrous Sulfate) 325 Mg Tablet, 325 MG PO BID Glimepiride (Glimepiride) 2 Mg Tablet, 2 MG PO QHS Losartan Potassium (Losartan Potassium) 50 Mg Tablet, 50 MG PO DAILY TAKES AT NOON Metformin HCl (Metformin HCl ER) 500 Mg Tab.er.24h, 1,000 MG PO BID Pantoprazole Sodium (Protonix) 40 Mg Tab, 40 MG PO BID Sitagliptin (Januvia) 50 Mg Tab, 50 MG PO DAILY Sucralfate (Sucralfate) 1 Gm Tablet, 1 GM PO ACHS Tiotropium [place] (Spiriva) 18 Mcg Cap, 1 CAP INH DAILY Allergies Coded Allergies: No Known Allergies (Verified , 02/24/06) A-FIB/CHADSVASC A-FIB History Current/History of A-Fib/PAF?: No Sunshine Allison August 10, 2018 12:22
[2018-08-10 14:00] VITALS: BP 140/80
[2018-08-10] MEDS ORDERED: SUCR1TAB56 PO (14:11)
[2018-08-10] MEDS ORDERED: CLOP75TA2 PO (14:11)
[2018-08-10 14:46] LABS: BASO # 0.1 10^3/uL (0.0-0.2); BASO % 0.9 % (0.0-1.0); EOS # 0.1 10^3/uL (0.0-0.50); EOS % 1.9 % (0.0-3.0); HEMATOCRIT 35.5 % (36.0-47.0); HEMOGLOBIN 10.7 g/dl (12.0-15.5); LYMPH # 0.7 10^3/uL (1.5-4.5); LYMPH % 9.7 % (24.0-44.0); MEAN CORPUSCULAR HEMOGLOBIN 26.9 pg (27.0-33.0); MEAN CORPUSCULAR HGB CONC 30.1 g/dl (32.0-36.5); MEAN CORPUSCULAR VOLUME 89.2 fl (80.0-96.0); MONO # 0.7 10^3/uL (0.0-0.8); MONO % 8.9 % (0.0-5.0); NEUTROPHILS # 5.8 10^3/uL (1.8-7.7); NEUTROPHILS % 78.1 % (36.0-66.0); PLATELET COUNT, AUTOMATED 647 10^3/uL (150-450); RED BLOOD COUNT 3.98 10^6/uL (4.00-5.40); WHITE BLOOD COUNT 7.4 10^3/uL (4.0-10.0)
[2018-08-10] MEDS: NS 1,000 ML IV SCH (14:51)
--- NOTE | 2018-08-10 14:55 | REP ---
BILATERAL LOWER EXTREMITY DUPLEX DOPPLER ARTERIAL ULTRASOUND: Real-time ultrasound evaluation and duplex Doppler interrogation of bilateral lower extremity arterial systems is performed. PAUL right is 1.0 and left 0.25. There is a history of a right axillofemoral femoral bypass graft and left superficial femoral artery stent, with recent angiogram performed 07/31/2018. The femoral to femoral bypass graft is occluded. Collateral arterial vessel is seen supplying the left external iliac artery. There is very slow flow throughout the left lower extremity arterial system, with monophasic waveforms throughout. Patent flow is seen in the right axillary to right femoral bypass graft with velocity in the mid aspect 103 cm/s. Biphasic waveforms are seen throughout the right lower extremity. 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 Collateral supply provided to left external iliac artery with very slow flow throughout the left lower extremity arterial system. Electronically Signed by Allan Omalley MD 08/10/2018 07:50 P
[2018-08-10 15:09] LABS: ALBUMIN 2.6 GM/DL (3.2-5.2); ALT/SGPT 16 U/L (12-78); BILIRUBIN,TOTAL 0.3 MG/DL (0.2-1.0); BLOOD UREA NITROGEN 13 MG/DL (7-18); CALCIUM LEVEL 8.4 MG/DL (8.8-10.2); CARBON DIOXIDE LEVEL 29 MEQ/L (21-32); CHLORIDE LEVEL 108 MEQ/L (98-107); GLOMERULAR FILTRATION RATE > 60.0 (>39); GLUCOSE, FASTING 125 MG/DL (70-100); SODIUM LEVEL 143 MEQ/L (136-145)
[2018-08-10] MEDS: SUCRALFATE 1 GM TAB PO SCH ×3 (15:20→21:01)
[2018-08-10] MEDS: HEPARIN DRIP 25,000 UNITS in APPROPRIATE DILUENT 1 EA IV SCH (16:00)
[2018-08-10 22:00] VITALS: BP 173/81
[2018-08-10] MEDS: HEPARIN SOD (PORCINE) 5000 UNITS/ML VIAL IV PRN (22:45)
[2018-08-11 05:49] LABS: HEMATOCRIT 32.4 % (36.0-47.0); HEMOGLOBIN 9.9 g/dl (12.0-15.5); MEAN CORPUSCULAR HEMOGLOBIN 26.4 pg (27.0-33.0); MEAN CORPUSCULAR HGB CONC 30.6 g/dl (32.0-36.5); MEAN CORPUSCULAR VOLUME 86.4 fl (80.0-96.0); PLATELET COUNT, AUTOMATED 641 10^3/uL (150-450); RED BLOOD COUNT 3.75 10^6/uL (4.00-5.40); WHITE BLOOD COUNT 7.7 10^3/uL (4.0-10.0)
[2018-08-11 06:00] VITALS: BP 174/78
[2018-08-11] MEDS ORDERED: PNEUMOCOCCAL VACCINE 0.5ML SYRINGE(90732) PNEUMOVAX 23 IM ONE (06:00)
[2018-08-11 06:26] LABS: ALBUMIN 2.5 GM/DL (3.2-5.2); ALT/SGPT 13 U/L (12-78); BILIRUBIN,TOTAL 0.4 MG/DL (0.2-1.0); BLOOD UREA NITROGEN 9 MG/DL (7-18); CALCIUM LEVEL 7.9 MG/DL (8.8-10.2); CARBON DIOXIDE LEVEL 26 MEQ/L (21-32); CHLORIDE LEVEL 106 MEQ/L (98-107); CREATININE FOR GFR 0.42 MG/DL (0.55-1.30); GLOMERULAR FILTRATION RATE > 60.0 (>39); GLUCOSE, FASTING 106 MG/DL (70-100); POTASSIUM SERUM 3.2 MEQ/L (3.5-5.1); SODIUM LEVEL 141 MEQ/L (136-145); TOTAL PROTEIN 6.3 GM/DL (6.4-8.2)
[2018-08-11] MEDS: SUCRALFATE 1 GM TAB PO SCH ×4 (08:35→20:47)
[2018-08-11] MEDS ORDERED: PANTOPRAZOLE 40MG TAB (PROTONIX) PO SCH (09:00)
[2018-08-11] MEDS: TIOTROPIUM INHALER/CAPSULE (SPIRIVA) INH SCH (09:00)
[2018-08-11] MEDS ORDERED: GLUCAGON FOR INJ 1 MG VIAL (J1610) SC PRN (10:15)
[2018-08-11] MEDS ORDERED: GLUCOSE 4 GM CHEW TABLET PO PRN (10:15)
[2018-08-11] MEDS ORDERED: DEXTROSE 50% 50 ML SYRINGE IV PRN (10:15)
[2018-08-11] MEDS ORDERED: POTASSIUM CHLORIDE 10 MEQ SR TABLET PO ONE (10:15)
--- NOTE | 2018-08-11 10:28 | IPNPDOC ---
Date Seen The patient was seen on 08/11/18. Progress Note ATTENDING: Dr. Martin PCP: Dr Hull CC: LLE pain HPI: [id number] with a past medical history significant for H/O GI Bleeding and recent admission to 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 S/P Angiogram as per Dr Martin with arthrectomy of fem-fem limb, s/p ballooning S/P Thrombolysis. Plavix was restarted at that time. Pt followed up in the office today related to recurrent LLE pain, pain in the left foot and left toes as well as purplish discoloration of the left toes. Admission was arranged for further evaluation of LLE. Denies any fevers, chills, weakness, fatigue, BOOKER, CP, SOB, cough, palpitations, abdominal pain, N/V/D or changes in bowel or bladder habits. PAST MEDICAL HISTORY: Hypertension. Hyperlipidemia. Type 2 diabetes. COPD. ERCP June 2017 cholangitis/biliary stent. H/O upper and lower GI bleed. EGD on 04/22/2017 that showed multiple (more than 10) small angioectasia of the duodenum treated with argon-beam coagulation. Recent admission for UGIB, EGD 07/10/18 Three non-bleeding angioectasias in the stomach. Treated with argon beam coagulation. A few non-bleeding angioectasias in the duodenum. Treated with argon beam coagulation. Patent biliary stent. chronic anemia history of vascular disease status post bilateral common iliac artery and angioplasty and stenting. H/O DVT of the left lower extremity and was anticoagulated on warfarin until her admission for GI Bleeding March 2017. PAST SURGICAL HISTORY: Tonsillectomy. Bilateral common iliac artery angioplasty stenting. EGDs and colonoscopies. 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 Treated with argon beam coagulation. A few non-bleeding angioectasias in the duodenum. Stephanie chantell with argon beam coagulation. Patent biliary stent. ERCP as above. Right-sided axillofemoral and fnuji-zv-[id number] fem/fem bypass undetermined date. PE: GEN: [id number], appears stated age. No acute distress. Alert and oriented x 3. HEENT: Normocephalic, atraumatic. No facial asymmetry. Moist mucous membranes. CHEST: Regular rate and rhythm, +S1, +S2 LUNGS: Clear to auscultation bilaterally. No wheezes, rales, or rhonchi. Breathing appears symmetric and easy. ABD: Round, soft, non-tender, non-distended. SKIN: No rashes. There is less discoloration of the left foot and toes with improved capillary refill today. Faint DP pulse is obtained with Doppler, PT is not obtained with doppler. NEURO: Alert and oriented x 3. No focal deficits appreciated. A&P: 78yoF with a past medical history significant for H/O GI Bleeding and recent admission to 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 S/P Angiogram as per Dr Martin with arthrectomy of fem-fem limb, s/p ballooning S/P Thrombolysis. Plavix was restarted at that time. Pt followed up in the office today related to recurrent LLE pain, pain in the left foot and left toes as well as purplish discoloration of the left toes. The patient will be admitted to M/S to Dr. Martin's service. LLE pain/limb ischemia H/O recent cross femoral limb occlusion. S/P arthrectomy of fem-fem limb, s/p ballooning, Thrombolysis. IVF at 50cc/hr. Heparin drip was initiated per protocol. 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 Collateral supply provided to left external iliac artery with very slow flow throughout the left lower extremity arterial system. Dr Martin aware, plan for possible Left Ax Fem bypass 08/12/18. Monitor CBC/CMP/PTT s/p Right-sided axillofemoral and xvxef-[id number] fem/fem bypass. Plavix as outpt H/O upper and lower GI bleed. EGD on 04/22/2017 that showed multiple (more than 10) small angioectasia of the duodenum treated with argon-beam coagulation. Recent admission for UGIB, EGD 07/10 Three non-bleeding angioectasias in the stomach. Treated with argon beam coagulation. A few non-bleeding angioectasias in the duodenum. Treated with argon beam coagulation. Patent biliary stent. Follows with Dr Santoyo. Continue PPI BID Continue Carafate chronic anemia. Monitor CBC Monitor for bleeding. FOB pending. Monitor need for transfusion. Hypertension. Amlodipine/losartan as outpt, continue norvasc with hold parameters Hyperlipidemia. Statin Type 2 diabetes. Hold po meds. CC diet SSI. COPD. O2 as needed. Tobacco use. Continue to smoke 1-2 ppd. Reinforced cessation. A-FIB/CHADSVASC A-FIB History Current/History of A-Fib/PAF?: No VS, I&O, 24H, Fishbone Vital Signs/I&O Vital Signs Date Time Temp Pulse Resp B/P (MAP) Pulse Ox O2 Delivery O2 Flow Rate FiO2 08/11/18 06:00 98.3 85 16 174/78 (110) 93 I&O- Last 24 Hours up to 6 AM 08/11/18 06:00 Intake Total 0 ml Output Total 600 ml Balance -600 ml Laboratory Data 24H LABS Laboratory Tests 2 08/10/18 14:36: Immature Granulocyte % (Auto) 0.5, White Blood Count 7.4, Red Blood Count 3.98L, Hemoglobin 10.7L, Hematocrit 35.5L, Mean Corpuscular Volume 89.2, Mean Corpuscular Hemoglobin 26.9L, Mean Corpuscular Hemoglobin Concent 30.1L, Red Cell Distribution Width 18.6H, Platelet Count 647H, Neutrophils (%) (Auto) 78.1H, Lymphocytes (%) (Auto) 9.7L, Monocytes (%) (Auto) 8.9H, Eosinophils (%) (Auto) 1.9, Basophils (%) (Auto) 0.9, Neutrophils # (Auto) 5.8, Lymphocytes # (Auto) 0.7L, Monocytes # (Auto) 0.7, Eosinophils # (Auto) 0.1, Basophils # (Auto) 0.1, Nucleated Red Blood Cells % (auto) 0.0, Activated Partial Thromboplast Time 27.1, Anion Gap 6L, Glomerular Filtration Rate > 60.0, Blood Urea Nitrogen 13, Creatinine 0.60, Sodium Level 143, Potassium Level 4.0, Chloride Level 108H, Carbon Dioxide Level 29, Calcium Level 8.4L, Aspartate Amino Transf (AST/SGOT) 10, Alanine Aminotransferase (ALT/SGPT) 16, Alkaline Phosphatase 121H, Total Bilirubin 0.3, Total Protein 7.0, Albumin 2.6L, Albumin/Globulin Ratio 0.59L 08/10/18 18:19: Activated Partial Thromboplast Time 38.5H 08/10/18 22:02: Activated Partial Thromboplast Time 45.5H 08/11/18 05:32: Nucleated Red Blood Cells % (auto) 0.0, Activated Partial Thromboplast Time 92.6H, Anion Gap 9, Glomerular Filtration Rate > 60.0, Blood Urea Nitrogen 9, Creatinine 0.42L, Sodium Level 141, Potassium Level 3.2L, Chloride Level 106, Carbon Dioxide Level 26, Calcium Level 7.9L, Aspartate Amino Transf (AST/SGOT) 14, Alanine Aminotransferase (ALT/SGPT) 13, Alkaline Phosphatase 110, Total Bilirubin 0.4, Total Protein 6.3L, Albumin 2.5L, Albumin/Globulin Ratio 0.66L CBC/BMP Laboratory Tests 08/10/18 14:36 Red Blood Count 3.98 L, Mean Corpuscular Volume 89.2, Mean Corpuscular Hemoglobin 26.9 L, Mean Corpuscular Hemoglobin Concent 30.1 L, Red Cell Distribution Width 18.6 H, Neutrophils (%) (Auto) 78.1 H, Lymphocytes (%) (Auto) 9.7 L, Monocytes (%) (Auto) 8.9 H, Eosinophils (%) (Auto) 1.9, Basophils (%) (Auto) 0.9, Neutrophils # (Auto) 5.8, Lymphocytes # (Auto) 0.7 L, Monocytes # (Auto) 0.7, Eosinophils # (Auto) 0.1, Basophils # (Auto) 0.1, Calcium Level 8.4 L, Aspartate Amino Transf (AST/SGOT) 10, Alanine Aminotransferase (ALT/SGPT) 16, Alkaline Phosphatase 121 H, Total Bilirubin 0.3, Total Protein 7.0, Albumin 2.6 L 08/11/18 05:32 Red Blood Count 3.75 L, Mean Corpuscular Volume 86.4, Mean Corpuscular Hemoglobin 26.4 L, Mean Corpuscular Hemoglobin Concent 30.6 L, Red Cell Distribution Width 18.5 H, Calcium Level 7.9 L, Aspartate Amino Transf (AST/SGOT) 14, Alanine Aminotransferase (ALT/SGPT) 13, Alkaline Phosphatase 110, Total Bilirubin 0.4, Total Protein 6.3 L, Albumin 2.5 L Sunshine Allison August 11, 2018 10:28
[2018-08-11] MEDS: HumaLOG INSULIN (NovoLOG) PER UNIT SC SCH ×3 (11:56→20:48)
[2018-08-11] MEDS ORDERED: HumaLOG INSULIN (NovoLOG) PER UNIT SC SCH (12:00)
[2018-08-11] MEDS: NS 1,000 ML IV SCH (12:15)
[2018-08-11] MEDS: amLODIPine 5 MG TAB PO SCH (12:16)
[2018-08-11 14:00] VITALS: BP 176/77
[2018-08-11] MEDS: HEPARIN DRIP 25,000 UNITS in APPROPRIATE DILUENT 1 EA IV SCH (18:06)
[2018-08-11] MEDS: HEPARIN SOD (PORCINE) 5000 UNITS/ML VIAL IV PRN (19:28)
[2018-08-11] MEDS: PANTOPRAZOLE 40MG TAB (PROTONIX) PO SCH (20:47)
[2018-08-11] MEDS: ATORVASTATIN 20 MG TAB PO SCH (20:47)
[2018-08-11] MEDS ORDERED: ONDANSETRON 4MG/2ML VIAL (J2405) IV PRN (22:15)
[2018-08-12 06:00] VITALS: BP 159/64
[2018-08-12 06:01] LABS: HEMATOCRIT 33.2 % (36.0-47.0); HEMOGLOBIN 10.3 g/dl (12.0-15.5); MEAN CORPUSCULAR HEMOGLOBIN 27.2 pg (27.0-33.0); MEAN CORPUSCULAR VOLUME 87.8 fl (80.0-96.0); PLATELET COUNT, AUTOMATED 663 10^3/uL (150-450); RED BLOOD COUNT 3.78 10^6/uL (4.00-5.40); WHITE BLOOD COUNT 9.5 10^3/uL (4.0-10.0)
[2018-08-12 06:17] LABS: ALBUMIN 2.5 GM/DL (3.2-5.2); ALT/SGPT 21 U/L (12-78); BILIRUBIN,TOTAL 0.3 MG/DL (0.2-1.0); BLOOD UREA NITROGEN 7 MG/DL (7-18); CALCIUM LEVEL 7.9 MG/DL (8.8-10.2); CARBON DIOXIDE LEVEL 25 MEQ/L (21-32); CHLORIDE LEVEL 108 MEQ/L (98-107); CREATININE FOR GFR 0.53 MG/DL (0.55-1.30); GLOMERULAR FILTRATION RATE > 60.0 (>39); GLUCOSE, FASTING 167 MG/DL (70-100); SODIUM LEVEL 141 MEQ/L (136-145); TOTAL PROTEIN 6.3 GM/DL (6.4-8.2)
[2018-08-12] MEDS: HumaLOG INSULIN (NovoLOG) PER UNIT SC SCH ×4 (07:30→21:00)
[2018-08-12] MEDS: NS 1,000 ML IV SCH (08:04)
[2018-08-12] MEDS: SUCRALFATE 1 GM TAB PO SCH ×4 (08:04→21:08)
[2018-08-12] MEDS: PANTOPRAZOLE 40MG TAB (PROTONIX) PO SCH ×2 (08:04→21:08)
[2018-08-12] MEDS: TIOTROPIUM INHALER/CAPSULE (SPIRIVA) INH SCH (08:41)
[2018-08-12] MEDS: amLODIPine 5 MG TAB PO SCH (11:53)
--- NOTE | 2018-08-12 12:05 | IPNPDOC ---
Date Seen The patient was seen on 08/12/18. Progress Note ATTENDING: Dr. 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 S/P Angiogram as per Dr Martin with arthrectomy of fem-fem limb, s/p ballooning S/P Thrombolysis. Plavix was restarted at that time. 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 This Am the pt states that her foot has been feeling better, less pain. Denies any fevers, chills, weakness, fatigue, BOOKER, CP, SOB, cough, palpitations, abdominal pain, N/V/D or changes in bowel or bladder habits. PAST MEDICAL HISTORY: Hypertension. Hyperlipidemia. Type 2 diabetes. COPD. ERCP June 2017 cholangitis/biliary stent. H/O upper and lower GI bleed. EGD on 04/22/2017 that showed multiple (more than 10) small angioectasia of the duodenum treated with argon-beam coagulation. Recent admission for UGIB, EGD 07/10/18 Three non-bleeding angioectasias in the stomach. Treated with argon beam coagulation. A few non-bleeding angioectasias in the duodenum. Treated with argon beam coagulation. Patent biliary stent. chronic anemia history of vascular disease status post bilateral common iliac artery and angioplasty and stenting. H/O DVT of the left lower extremity and was anticoagulated on warfarin until her admission for GI Bleeding March 2017. PAST SURGICAL HISTORY: Tonsillectomy. Bilateral common iliac artery angioplasty stenting. EGDs and colonoscopies. 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 Treated with argon beam coagulation. A few non-bleeding angioectasias in the duodenum. Treated with argon beam coagulation. Patent biliary stent. ERCP as above. Right-sided axillofemoral and [id number] fem/fem bypass undetermined date. PE: GEN: 78yoF, appears stated age. No acute distress. Alert and oriented x 3. HEENT: Normocephalic, atraumatic. No facial asymmetry. Moist mucous membranes. CHEST: Regular rate and rhythm, +S1, +S2 LUNGS: Clear to auscultation bilaterally. No wheezes, rales, or rhonchi. Breathing appears symmetric and easy. ABD: Round, soft, non-tender, non-distended. SKIN: No rashes. There is less discoloration of the left foot and toes with improved capillary refill today. DP pulse is obtained with Doppler, PT is not obtained with doppler. NEURO: Alert and oriented x 3. No focal deficits appreciated. 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 S/P Angiogram as per Dr Martin with arthrectomy of fem-fem limb, s/p ballooning S/P Thrombolysis. Plavix was restarted at that time. Pt followed up in the office today related to recurrent LLE pain, pain in the left foot and left toes as well as purplish discoloration of the left toes. LLE pain/limb ischemia H/O recent cross femoral limb occlusion. S/P arthrectomy of fem-fem limb, s/p ballooning, Thrombolysis. IVF at 50cc/hr. Heparin drip was initiated per protocol. 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 Collateral supply provided to left external iliac artery with very slow flow throughout the left lower extremity arterial system. Dr Martin aware, plan for possible Left Ax Fem bypass 08/12/18. Monitor CBC/CMP/PTT s/p Right-sided axillofemoral and [id number] fem/fem bypass. Plavix as outpt H/O upper and lower GI bleed. EGD on 04/22/2017 that showed multiple (more than 10) small angioectasia of the duodenum treated with argon-beam coagulation. Recent admission for UGIB, EGD 07/10 Three non-bleeding angioectasias in the stomach. Treated with argon beam coagulation. A few non-bleeding angioectasias in the duodenum. Treated with argon beam coagulation. Patent biliary stent. Follows with Dr Santoyo. Continue PPI BID Continue Carafate chronic anemia. Monitor CBC, hgb 10.3. Monitor for bleeding. FOB pending. Monitor need for transfusion. Hypertension. Amlodipine/losartan as outpt, continue norvasc with hold parameters Hyperlipidemia. Statin Type 2 diabetes. Hold po meds. CC diet SSI. COPD. O2 as needed. Tobacco use. Continue to smoke 1-2 ppd. Reinforced cessation. A-FIB/CHADSVASC A-FIB History Current/History of A-Fib/PAF?: No VS, I&O, 24H, Fishbone Vital Signs/I&O Vital Signs Date Time Temp Pulse Resp B/P (MAP) Pulse Ox O2 Delivery O2 Flow Rate FiO2 08/12/18 11:53 85 147/74 08/12/18 06:00 98.1 18 94 I&O- Last 24 Hours up to 6 AM 08/12/18 06:00 Intake Total 1750 ml Output Total 2975 ml Balance -1225 ml Laboratory Data 24H LABS Laboratory Tests 2 08/11/18 16:53: Bedside Glucose (Misc Panel) 134H 08/11/18 17:57: Activated Partial Thromboplast Time 62.9H 08/11/18 20:18: Bedside Glucose (Misc Panel) 260H 08/11/18 23:50: Activated Partial Thromboplast Time 107.5H 08/12/18 05:35: Nucleated Red Blood Cells % (auto) 0.0, Activated Partial Thromboplast Time 81.3H, Anion Gap 8, Glomerular Filtration Rate > 60.0, Blood Urea Nitrogen 7, Creatinine 0.53L, Sodium Level 141, Potassium Level 4.0#, Chloride Level 108H, Carbon Dioxide Level 25, Calcium Level 7.9L, Aspartate Amino Transf (AST/SGOT) 29, Alanine Aminotransferase (ALT/SGPT) 21, Alkaline Phosphatase 137H, Total Bilirubin 0.3, Total Protein 6.3L, Albumin 2.5L, Albumin/Globulin Ratio 0.66L 08/12/18 05:41: Bedside Glucose (Misc Panel) 170H 08/12/18 11:27: Bedside Glucose (Misc Panel) 150H 08/12/18 11:51: CBC/BMP Laboratory Tests 08/12/18 05:35 Red Blood Count 3.78 L, Mean Corpuscular Volume 87.8, Mean Corpuscular Hemoglobin 27.2, Mean Corpuscular Hemoglobin Concent 31.0 L, Red Cell Distribution Width 18.2 H, Calcium Level 7.9 L, Aspartate Amino Transf (AST/SGOT) 29, Alanine Aminotransferase (ALT/SGPT) 21, Alkaline Phosphatase 137 H, Total Bilirubin 0.3, Total Protein 6.3 L, Albumin 2.5 L Sunshine Allison August 12, 2018 12:05
[2018-08-12] MEDS: HEPARIN SOD (PORCINE) 5000 UNITS/ML VIAL IV PRN (12:43)
[2018-08-12 14:00] VITALS: BP 139/65
[2018-08-12] MEDS: HEPARIN DRIP 25,000 UNITS in APPROPRIATE DILUENT 1 EA IV SCH (16:23)
[2018-08-12] MEDS: ATORVASTATIN 20 MG TAB PO SCH (21:08)
[2018-08-12 22:00] VITALS: BP 147/71
[2018-08-13] MEDS: NS 1,000 ML IV SCH (00:05)
[2018-08-13 06:00] VITALS: BP 150/88
[2018-08-13 06:33] LABS: HEMATOCRIT 33.2 % (36.0-47.0); HEMOGLOBIN 10.1 g/dl (12.0-15.5); MEAN CORPUSCULAR HEMOGLOBIN 26.2 pg (27.0-33.0); MEAN CORPUSCULAR HGB CONC 30.4 g/dl (32.0-36.5); PLATELET COUNT, AUTOMATED 655 10^3/uL (150-450); RED BLOOD COUNT 3.86 10^6/uL (4.00-5.40); WHITE BLOOD COUNT 7.7 10^3/uL (4.0-10.0)
[2018-08-13 06:57] LABS: ALBUMIN 2.5 GM/DL (3.2-5.2); ALT/SGPT 15 U/L (12-78); BILIRUBIN,TOTAL 0.3 MG/DL (0.2-1.0); BLOOD UREA NITROGEN 6 MG/DL (7-18); CALCIUM LEVEL 8.3 MG/DL (8.8-10.2); CARBON DIOXIDE LEVEL 26 MEQ/L (21-32); CHLORIDE LEVEL 108 MEQ/L (98-107); CREATININE FOR GFR 0.52 MG/DL (0.55-1.30); GLOMERULAR FILTRATION RATE > 60.0 (>39); GLUCOSE, FASTING 135 MG/DL (70-100); POTASSIUM SERUM 3.6 MEQ/L (3.5-5.1); SODIUM LEVEL 140 MEQ/L (136-145); TOTAL PROTEIN 6.4 GM/DL (6.4-8.2)
[2018-08-13] MEDS: HumaLOG INSULIN (NovoLOG) PER UNIT SC SCH ×4 (07:30→20:58)
[2018-08-13] MEDS: TIOTROPIUM INHALER/CAPSULE (SPIRIVA) INH SCH (07:30)
[2018-08-13] MEDS: PANTOPRAZOLE 40MG TAB (PROTONIX) PO SCH ×2 (08:11→20:57)
[2018-08-13] MEDS: SUCRALFATE 1 GM TAB PO SCH ×4 (08:11→20:57)
--- NOTE | 2018-08-13 09:33 | IPNPDOC ---
Date Seen The patient was seen on 08/13/18. Progress Note ATTENDING: Dr. 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 S/P Angiogram as per Dr Martin with arthrectomy of fem-fem limb, s/p ballooning S/P Thrombolysis. Plavix was restarted at that time. 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 This Am the pt states that her foot has been feeling better, less pain. Denies any fevers, chills, weakness, fatigue, BOOKER, CP, SOB, cough, palpitations, abdominal pain, N/V/D or changes in bowel or bladder habits. PAST MEDICAL HISTORY: Hypertension. Hyperlipidemia. Type 2 diabetes. COPD. ERCP June 2017 cholangitis/biliary stent. H/O upper and lower GI bleed. EGD on 04/22/2017 that showed multiple (more than 10) small angioectasia of the duodenum treated with argon-beam coagulation. Recent admission for UGIB, EGD 07/10/18 Three non-bleeding angioectasias in the stomach. Treated with argon beam coagulation. A few non-bleeding angioectasias in the duodenum. Treated with argon beam coagulation. Patent biliary stent. chronic anemia history of vascular disease status post bilateral common iliac artery and angioplasty and stenting. H/O DVT of the left lower extremity and was anticoagulated on warfarin until her admission for GI Bleeding March 2017. PAST SURGICAL HISTORY: Tonsillectomy. Bilateral common iliac artery angioplasty stenting. EGDs and colonoscopies. 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 Treated with argon beam coagulation. A few non-bleeding angioectasias in the duodenum. Treated with argon beam coagulation. Patent biliary stent. ERCP as above. Right-sided axillofemoral and [id number]-[id number] fem/fem bypass undetermined date. PE: GEN: 78yoF, appears stated age. No acute distress. Alert and oriented x 3. HEENT: Normocephalic, atraumatic. Moist mucous membranes. CHEST: Regular rate and rhythm, +S1, +S2 LUNGS: Clear to auscultation bilaterally. No wheezes, rales, or rhonchi. Breathing appears symmetric and easy. ABD: Round, soft, non-tender, non-distended. SKIN: No rashes. There is less discoloration of the left foot and toes with improved capillary refill today. DP/PT pulse is obtained with Doppler, monophasic. NEURO: Alert and oriented x 3. No focal deficits appreciated. 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 S/P Angiogram as per Dr Martin with arthrectomy of fem-fem limb, s/p ballooning S/P Thrombolysis. Plavix was restarted at that time. Pt followed up in the office today related to recurrent LLE pain, pain in the left foot and left toes as well as purplish discoloration of the left toes. LLE pain/limb ischemia H/O recent cross femoral limb occlusion. S/P arthrectomy of fem-fem limb, s/p ballooning, Thrombolysis. DC IVF for now. Continue Heparin drip per protocol. 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 Collateral supply provided to left external iliac artery with very slow flow throughout the left lower extremity arterial system. Dr Martin aware, plan for possible Left Ax Fem bypass 08/14/18. Monitor CBC/CMP/PTT s/p Right-sided axillofemoral and [id number] fem/fem bypass. Plavix as outpt H/O upper and lower GI bleed. EGD on 04/22/2017 that showed multiple (more than 10) small angioectasia of the duodenum treated with argon-beam coagulation. Recent admission for UGIB, EGD 07/10 Three non-bleeding angioectasias in the stomach. Treated with argon beam coagulation. A few non-bleeding angioectasias in the duodenum. Treated with argon beam coagulation. Patent biliary stent. Follows with Dr Santoyo. Continue PPI BID Continue Carafate chronic anemia. Monitor CBC, hgb 10.1. Monitor for bleeding. FOB pending. Monitor need for transfusion. Hypertension. Amlodipine/losartan as outpt, continue norvasc with hold parameters Hyperlipidemia. Statin Type 2 diabetes. Hold po meds. CC diet SSI. COPD. O2 as needed. Tobacco use. Continue to smoke 1-2 ppd. Reinforced cessation. A-FIB/CHADSVASC A-FIB History Current/History of A-Fib/PAF?: No VS, I&O, 24H, Fishbone Vital Signs/I&O Vital Signs Date Time Temp Pulse Resp B/P (MAP) Pulse Ox O2 Delivery O2 Flow Rate FiO2 08/13/18 06:00 98.4 93 18 150/88 (108) 96 I&O- Last 24 Hours up to 6 AM 08/13/18 06:00 Intake Total 1452 ml Output Total 1900 ml Balance -448 ml Laboratory Data 24H LABS Laboratory Tests 2 08/12/18 11:27: Bedside Glucose (Misc Panel) 150H 08/12/18 11:51: Activated Partial Thromboplast Time 63.5H 08/12/18 16:35: Bedside Glucose (Misc Panel) 190H 08/12/18 18:37: Activated Partial Thromboplast Time 74.2H 08/12/18 20:14: Bedside Glucose (Misc Panel) 215H 08/13/18 00:12: Activated Partial Thromboplast Time 88.2H 08/13/18 05:30: Bedside Glucose (Misc Panel) 134H 08/13/18 05:57: Activated Partial Thromboplast Time 99.9H, Nucleated Red Blood Cells % (auto) 0.0, Anion Gap 6L, Glomerular Filtration Rate > 60.0, Blood Urea Nitrogen 6L, Creatinine 0.52L, Sodium Level 140, Potassium Level 3.6, Chloride Level 108H, Carbon Dioxide Level 26, Calcium Level 8.3L, Aspartate Amino Transf (AST/SGOT) 13, Alanine Aminotransferase (ALT/SGPT) 15, Alkaline Phosphatase 129H, Total Bilirubin 0.3, Total Protein 6.4, Albumin 2.5L, Albumin/Globulin Ratio 0.64L CBC/BMP Laboratory Tests 08/13/18 05:57 Red Blood Count 3.86 L, Mean Corpuscular Volume 86.0, Mean Corpuscular Hemoglobin 26.2 L, Mean Corpuscular Hemoglobin Concent 30.4 L, Red Cell Distribution Width 18.2 H, Calcium Level 8.3 L, Aspartate Amino Transf (AST/SGOT) 13, Alanine Aminotransferase (ALT/SGPT) 15, Alkaline Phosphatase 129 H, Total Bilirubin 0.3, Total Protein 6.4, Albumin 2.5 L Sunshine Allison August 13, 2018 09:33
[2018-08-13] MEDS: amLODIPine 5 MG TAB PO SCH (11:56)
[2018-08-13] MEDS: HEPARIN SOD (PORCINE) 5000 UNITS/ML VIAL IV PRN (12:36)
[2018-08-13 14:00] VITALS: BP 148/79
[2018-08-13] MEDS: HEPARIN DRIP 25,000 UNITS in APPROPRIATE DILUENT 1 EA IV SCH (17:02)
[2018-08-13] MEDS: ATORVASTATIN 20 MG TAB PO SCH (20:57)
[2018-08-13 22:00] VITALS: BP 130/61
[2018-08-14 06:00] VITALS: BP 138/63
[2018-08-14 07:17] LABS: HEMATOCRIT 34.6 % (36.0-47.0); HEMOGLOBIN 10.6 g/dl (12.0-15.5); MEAN CORPUSCULAR HEMOGLOBIN 26.1 pg (27.0-33.0); MEAN CORPUSCULAR HGB CONC 30.6 g/dl (32.0-36.5); MEAN CORPUSCULAR VOLUME 85.2 fl (80.0-96.0); PLATELET COUNT, AUTOMATED 593 10^3/uL (150-450); RED BLOOD COUNT 4.06 10^6/uL (4.00-5.40); WHITE BLOOD COUNT 7.2 10^3/uL (4.0-10.0)
[2018-08-14 07:47] LABS: ALBUMIN 2.5 GM/DL (3.2-5.2); ALT/SGPT 16 U/L (12-78); BILIRUBIN,TOTAL 0.4 MG/DL (0.2-1.0); BLOOD UREA NITROGEN 9 MG/DL (7-18); CALCIUM LEVEL 8.2 MG/DL (8.8-10.2); CARBON DIOXIDE LEVEL 27 MEQ/L (21-32); CHLORIDE LEVEL 107 MEQ/L (98-107); CREATININE FOR GFR 0.54 MG/DL (0.55-1.30); GLOMERULAR FILTRATION RATE > 60.0 (>39); GLUCOSE, FASTING 170 MG/DL (70-100); POTASSIUM SERUM 3.4 MEQ/L (3.5-5.1); SODIUM LEVEL 139 MEQ/L (136-145); TOTAL PROTEIN 6.5 GM/DL (6.4-8.2)
[2018-08-14] MEDS: SUCRALFATE 1 GM TAB PO SCH ×4 (08:00→20:56)
[2018-08-14] MEDS: HumaLOG INSULIN (NovoLOG) PER UNIT SC SCH ×4 (08:01→20:57)
[2018-08-14] MEDS: TIOTROPIUM INHALER/CAPSULE (SPIRIVA) INH SCH (08:34)
--- NOTE | 2018-08-14 09:12 | IPNPDOC ---
Date Seen The patient was seen on 08/14/18. Progress Note ATTENDING: Dr. 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 S/P Angiogram as per Dr Martin with arthrectomy of fem-fem limb, s/p ballooning S/P Thrombolysis. Plavix was restarted at that time. 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 Pt states that her foot has been feeling better, less pain. Denies any fevers, chills, weakness, fatigue, BOOKER, CP, SOB, cough, palpitations, abdominal pain, N/V/D or changes in bowel or bladder habits. PAST MEDICAL HISTORY: Hypertension. Hyperlipidemia. Type 2 diabetes. COPD. ERCP June 2017 cholangitis/biliary stent. H/O upper and lower GI bleed. EGD on 04/22/2017 that showed multiple (more than 10) small angioectasia of the duodenum treated with argon-beam coagulation. Recent admission for UGIB, EGD 07/10/18 Three non-bleeding angioectasias in the stomach. Treated with argon beam coagulation. A few non-bleeding angioectasias in the duodenum. Treated with argon beam coagulation. Patent biliary stent. chronic anemia history of vascular disease status post bilateral common iliac artery and angioplasty and stenting. H/O DVT of the left lower extremity and was anticoagulated on warfarin until her admission for GI Bleeding March 2017. PAST SURGICAL HISTORY: Tonsillectomy. Bilateral common iliac artery angioplasty stenting. EGDs and colonoscopies. 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 Treated with argon beam coagulation. A few non-bleeding angioectasias in the duodenum. Treated with argon beam coagulation. Patent biliary stent. ERCP as above. Right-sided axillofemoral and [id number] fem/fem bypass undetermined date. PE: GEN: 78yoF, appears stated age. No acute distress. Alert and oriented x 3. HEENT: Normocephalic, atraumatic. Moist mucous membranes. CHEST: Regular rate and rhythm, +S1, +S2 LUNGS: Clear to auscultation bilaterally. No wheezes, rales, or rhonchi. Breathing appears symmetric and easy. ABD: Round, soft, non-tender, non-distended. SKIN: No rashes. There is less discoloration of the left foot and toes with improved capillary refill. DP/PT pulse is obtained with Doppler, monophasic. NEURO: Alert and oriented x 3. No focal deficits appreciated. 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 S/P Angiogram as per Dr Martin with arthrectomy of fem-fem limb, s/p ballooning S/P Thrombolysis. Plavix was restarted at that time. Pt followed up in the office today related to recurrent LLE pain, pain in the left foot and left toes as well as purplish discoloration of the left toes. LLE pain/limb ischemia H/O recent cross femoral limb occlusion. S/P arthrectomy of fem-fem limb, s/p ballooning, Thrombolysis. DC IVF for now. Continue Heparin drip per protocol. 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 Collateral supply provided to left external iliac artery with very slow flow throughout the left lower extremity arterial system. Dr Martin aware, plan for possible Left Ax Fem bypass 08/15/18. Monitor CBC/CMP/PTT s/p Right-sided axillofemoral and [id number] fem/fem bypass. Plavix as outpt H/O upper and lower GI bleed. EGD on 04/22/2017 that showed multiple (more than 10) small angioectasia of the duodenum treated with argon-beam coagulation. Recent admission for UGIB, EGD 07/10 Three non-bleeding angioectasias in the stomach. Treated with argon beam coagulation. A few non-bleeding angioectasias in the duodenum. Treated with argon beam coagulation. Patent biliary stent. Follows with Dr Santoyo. Continue PPI BID Continue Carafate chronic anemia. Monitor CBC, hgb 10.6 Monitor for bleeding. FOB pending. Monitor need for transfusion. Hypertension. Amlodipine/losartan as outpt, continue norvasc with hold parameters Hyperlipidemia. Statin Type 2 diabetes. Hold po meds. CC diet SSI. COPD. O2 as needed. Tobacco use. Continue to smoke 1-2 ppd. Reinforced cessation. A-FIB/CHADSVASC A-FIB History Current/History of A-Fib/PAF?: No VS, I&O, 24H, Fishbone Vital Signs/I&O Vital Signs Date Time Temp Pulse Resp B/P (MAP) Pulse Ox O2 Delivery O2 Flow Rate FiO2 08/14/18 06:00 97.5 86 18 138/63 (88) 96 I&O- Last 24 Hours up to 6 AM 08/14/18 06:00 Intake Total 2492 ml Output Total 2100 ml Balance 392 ml Laboratory Data 24H LABS Laboratory Tests 2 08/13/18 11:48: Bedside Glucose (Misc Panel) 227H 08/13/18 11:52: Activated Partial Thromboplast Time 62.5H 08/13/18 16:37: Bedside Glucose (Misc Panel) 165H 08/13/18 17:52: Activated Partial Thromboplast Time 113.7H 08/13/18 20:52: Bedside Glucose (Misc Panel) 286H 08/14/18 00:03: Activated Partial Thromboplast Time 104.1H 08/14/18 06:23: Activated Partial Thromboplast Time 89.1H, Nucleated Red Blood Cells % (auto) 0.0, Anion Gap 5L, Glomerular Filtration Rate > 60.0, Blood Urea Nitrogen 9, Creatinine 0.54L, Sodium Level 139, Potassium Level 3.4L, Chloride Level 107, Carbon Dioxide Level 27, Calcium Level 8.2L, Aspartate Amino Transf (AST/SGOT) 11, Alanine Aminotransferase (ALT/SGPT) 16, Alkaline Phosphatase 126H, Total Bilirubin 0.4, Total Protein 6.5, Albumin 2.5L, Albumin/Globulin Ratio 0.63L CBC/BMP Laboratory Tests 08/14/18 06:23 Red Blood Count 4.06, Mean Corpuscular Volume 85.2, Mean Corpuscular Hemoglobin 26.1 L, Mean Corpuscular Hemoglobin Concent 30.6 L, Red Cell Distribution Width 18.0 H, Calcium Level 8.2 L, Aspartate Amino Transf (AST/SGOT) 11, Alanine Aminotransferase (ALT/SGPT) 16, Alkaline Phosphatase 126 H, Total Bilirubin 0.4, Total Protein 6.5, Albumin 2.5 L Sunshine Allison August 14, 2018 09:12
[2018-08-14] MEDS ORDERED: POTASSIUM CHLORIDE 10 MEQ SR TABLET PO ONE (10:00)
[2018-08-14] MEDS: PANTOPRAZOLE 40MG TAB (PROTONIX) PO SCH ×2 (10:40→20:57)
[2018-08-14] MEDS: amLODIPine 5 MG TAB PO SCH (12:55)
[2018-08-14 14:00] VITALS: BP 124/72
[2018-08-14] MEDS: HEPARIN DRIP 25,000 UNITS in APPROPRIATE DILUENT 1 EA IV SCH (16:59)
[2018-08-14] MEDS: ATORVASTATIN 20 MG TAB PO SCH (20:57)
[2018-08-14 22:00] VITALS: BP 133/70
[2018-08-15 06:00] VITALS: BP 125/83
[2018-08-15 06:33] LABS: HEMATOCRIT 35.2 % (36.0-47.0); HEMOGLOBIN 10.7 g/dl (12.0-15.5); MEAN CORPUSCULAR HEMOGLOBIN 26.4 pg (27.0-33.0); MEAN CORPUSCULAR HGB CONC 30.4 g/dl (32.0-36.5); MEAN CORPUSCULAR VOLUME 86.9 fl (80.0-96.0); PLATELET COUNT, AUTOMATED 555 10^3/uL (150-450); RED BLOOD COUNT 4.05 10^6/uL (4.00-5.40); WHITE BLOOD COUNT 7.6 10^3/uL (4.0-10.0)
[2018-08-15 06:57] LABS: ALBUMIN 2.6 GM/DL (3.2-5.2); ALT/SGPT 13 U/L (12-78); BILIRUBIN,TOTAL 0.2 MG/DL (0.2-1.0); BLOOD UREA NITROGEN 11 MG/DL (7-18); CALCIUM LEVEL 8.6 MG/DL (8.8-10.2); CARBON DIOXIDE LEVEL 26 MEQ/L (21-32); CHLORIDE LEVEL 106 MEQ/L (98-107); CREATININE FOR GFR 0.61 MG/DL (0.55-1.30); GLOMERULAR FILTRATION RATE > 60.0 (>39); GLUCOSE, FASTING 188 MG/DL (70-100); POTASSIUM SERUM 3.8 MEQ/L (3.5-5.1); SODIUM LEVEL 140 MEQ/L (136-145); TOTAL PROTEIN 6.4 GM/DL (6.4-8.2)
[2018-08-15] MEDS: TIOTROPIUM INHALER/CAPSULE (SPIRIVA) INH SCH (07:35)
[2018-08-15] MEDS: SUCRALFATE 1 GM TAB PO SCH ×4 (07:48→20:34)
[2018-08-15] MEDS: HumaLOG INSULIN (NovoLOG) PER UNIT SC SCH ×4 (07:49→20:34)
[2018-08-15] MEDS: PANTOPRAZOLE 40MG TAB (PROTONIX) PO SCH ×2 (09:15→20:34)
[2018-08-15] MEDS: amLODIPine 5 MG TAB PO SCH (13:03)
[2018-08-15] MEDS: HEPARIN DRIP 25,000 UNITS in APPROPRIATE DILUENT 1 EA IV SCH (13:47)
[2018-08-15 14:00] VITALS: BP 132/62
[2018-08-15] MEDS: ATORVASTATIN 20 MG TAB PO SCH (20:34)
[2018-08-15 22:00] VITALS: BP 134/63
[2018-08-16] VITALS (13 sets, daily range): BP systolic 106–138; BP diastolic 55–78
[2018-08-16] MEDS: SUCRALFATE 1 GM TAB PO SCH ×4 (07:30→20:30)
[2018-08-16] MEDS: HumaLOG INSULIN (NovoLOG) PER UNIT SC SCH ×4 (07:30→20:36)
[2018-08-16] MEDS: TIOTROPIUM INHALER/CAPSULE (SPIRIVA) INH SCH (07:56)
[2018-08-16 08:08] LABS: HEMATOCRIT 35.9 % (36.0-47.0); MEAN CORPUSCULAR HEMOGLOBIN 26.7 pg (27.0-33.0); MEAN CORPUSCULAR HGB CONC 30.6 g/dl (32.0-36.5); MEAN CORPUSCULAR VOLUME 87.1 fl (80.0-96.0); PLATELET COUNT, AUTOMATED 491 10^3/uL (150-450); RED BLOOD COUNT 4.12 10^6/uL (4.00-5.40); WHITE BLOOD COUNT 8.8 10^3/uL (4.0-10.0)
[2018-08-16 08:33] LABS: ALBUMIN 2.7 GM/DL (3.2-5.2); ALT/SGPT 14 U/L (12-78); BILIRUBIN,TOTAL 0.2 MG/DL (0.2-1.0); BLOOD UREA NITROGEN 11 MG/DL (7-18); CALCIUM LEVEL 8.5 MG/DL (8.8-10.2); CARBON DIOXIDE LEVEL 27 MEQ/L (21-32); CHLORIDE LEVEL 107 MEQ/L (98-107); CREATININE FOR GFR 0.63 MG/DL (0.55-1.30); GLOMERULAR FILTRATION RATE > 60.0 (>39); GLUCOSE, FASTING 200 MG/DL (70-100); SODIUM LEVEL 140 MEQ/L (136-145); TOTAL PROTEIN 6.6 GM/DL (6.4-8.2)
[2018-08-16] MEDS: PANTOPRAZOLE 40MG TAB (PROTONIX) PO SCH ×2 (08:41→20:30)
[2018-08-16] MEDS ORDERED: BUPIVACAINE HCL 0.5% 10 ML VIAL As Ordered ONE (09:10)
[2018-08-16] MEDS ORDERED: LIDOCAINE 1% MDV 20ML VIAL As Ordered ONE (09:10)
[2018-08-16] MEDS ORDERED: HEPARIN SOD (PORCINE) 5000 UNITS/ML VIAL As Ordered ONE ×3 (09:11→12:06)
[2018-08-16] MEDS ORDERED: ceFAZolin 2 GM/D5W 50 ML IV BAG (J0690 PER 500MG) As Ordered ONE (10:09)
[2018-08-16] MEDS ORDERED: PROPOFOL 200 MG/20 ML VIAL As Ordered ONE ×2 (10:20→11:02)
[2018-08-16] MEDS ORDERED: LIDOCAINE 2% INJ 100 MG/5 ML SDV (FOR ANES.) As Ordered ONE (10:20)
[2018-08-16] MEDS ORDERED: ONDANSETRON 4MG/2ML VIAL (J2405) As Ordered ONE (10:20)
[2018-08-16] MEDS ORDERED: fentaNYL 100 MCG/2 ML INJECTION (J3010) As Ordered ONE (10:20)
[2018-08-16] MEDS ORDERED: KETAMINE HCL 200 MG/20 ML VIAL As Ordered ONE (10:20)
[2018-08-16] MEDS ORDERED: MIDAZOLAM INJ 2 MG/2 ML VIAL (J2250) As Ordered ONE (10:21)
[2018-08-16] MEDS ORDERED: ePHEDrine SULFATE 25 MG/5 ML(5MG/ML) SYRINGE As Ordered ONE (10:31)
[2018-08-16] MEDS ORDERED: PHENYLephrine HCL 500 MCG/5 ML (100MCG/ML) SYRINGE (J2370) As Ordered ONE (10:31)
[2018-08-16] MEDS ORDERED: THROMBIN SOLN 20,000 UNITS KIT As Ordered ONE (10:51)
[2018-08-16] MEDS ORDERED: PERCOCET 5MG/325MG TAB As Ordered ONE ×2 (12:09→17:55)
[2018-08-16] MEDS ORDERED: LR 1,000 ML IV SCH (12:15)
[2018-08-16] MEDS ORDERED: fentaNYL 100 MCG/2 ML INJECTION (J3010) IV PRN (12:15)
[2018-08-16] MEDS ORDERED: HYDROMORPHONE HCL 0.5 MG/ 0.5 ML SYRINGE (J1170 PER 1) IV PRN (12:15)
[2018-08-16] MEDS ORDERED: ONDANSETRON 4MG/2ML VIAL (J2405) IV PRN (12:15)
[2018-08-16] MEDS ORDERED: PERCOCET 5MG/325MG TAB PO PRN ×2 (12:15→18:00)
[2018-08-16] MEDS: amLODIPine 5 MG TAB PO SCH (14:10)
[2018-08-16] MEDS: ATORVASTATIN 20 MG TAB PO SCH (20:29)
[2018-08-16] MEDS ORDERED: MORPHINE 4 MG/ML 1ML VIAL/SYRINGE (J2270) IV PRN (22:15)
[2018-08-17] VITALS (23 sets, daily range): BP systolic 99–133; BP diastolic 54–64
[2018-08-17 04:46] LABS: HEMATOCRIT 31.5 % (36.0-47.0); HEMOGLOBIN 9.6 g/dl (12.0-15.5); MEAN CORPUSCULAR HEMOGLOBIN 26.1 pg (27.0-33.0); MEAN CORPUSCULAR HGB CONC 30.5 g/dl (32.0-36.5); MEAN CORPUSCULAR VOLUME 85.6 fl (80.0-96.0); PLATELET COUNT, AUTOMATED 467 10^3/uL (150-450); RED BLOOD COUNT 3.68 10^6/uL (4.00-5.40); WHITE BLOOD COUNT 26.1 10^3/uL (4.0-10.0)
[2018-08-17] MEDS: HEPARIN SOD (PORCINE) 5000 UNITS/ML VIAL IV PRN ×2 (05:15→12:18)
[2018-08-17 05:22] LABS: ALBUMIN 2.5 GM/DL (3.2-5.2); ALT/SGPT 11 U/L (12-78); BILIRUBIN,TOTAL 0.3 MG/DL (0.2-1.0); BLOOD UREA NITROGEN 18 MG/DL (7-18); CALCIUM LEVEL 8.5 MG/DL (8.8-10.2); CARBON DIOXIDE LEVEL 26 MEQ/L (21-32); CHLORIDE LEVEL 103 MEQ/L (98-107); CREATININE FOR GFR 0.94 MG/DL (0.55-1.30); GLOMERULAR FILTRATION RATE > 60.0 (>39); GLUCOSE, FASTING 220 MG/DL (70-100); POTASSIUM SERUM 4.4 MEQ/L (3.5-5.1); SODIUM LEVEL 137 MEQ/L (136-145); TOTAL PROTEIN 6.1 GM/DL (6.4-8.2)
[2018-08-17] MEDS: HEPARIN DRIP 25,000 UNITS in APPROPRIATE DILUENT 1 EA IV SCH (06:44)
[2018-08-17] MEDS: SUCRALFATE 1 GM TAB PO SCH ×4 (06:45→20:15)
[2018-08-17] MEDS: TIOTROPIUM INHALER/CAPSULE (SPIRIVA) INH SCH (07:21)
[2018-08-17] MEDS: HumaLOG INSULIN (NovoLOG) PER UNIT SC SCH ×4 (07:57→20:16)
[2018-08-17] MEDS: PERCOCET 5MG/325MG TAB PO PRN ×2 (07:58→17:33)
[2018-08-17] MEDS: PANTOPRAZOLE 40MG TAB (PROTONIX) PO SCH ×2 (07:58→20:16)
[2018-08-17] MEDS: amLODIPine 5 MG TAB PO SCH (11:42)
[2018-08-17] MEDS: ATORVASTATIN 20 MG TAB PO SCH (20:16)
[2018-08-18] VITALS (10 sets, daily range): BP systolic 101–141; BP diastolic 54–69
[2018-08-18] MEDS: PERCOCET 5MG/325MG TAB PO PRN ×3 (03:25→17:35)
[2018-08-18] MEDS: HEPARIN SOD (PORCINE) 5000 UNITS/ML VIAL IV PRN (04:09)
[2018-08-18] MEDS: HEPARIN DRIP 25,000 UNITS in APPROPRIATE DILUENT 1 EA IV SCH (06:35)
[2018-08-18 06:57] LABS: HEMATOCRIT 29.9 % (36.0-47.0); HEMOGLOBIN 8.9 g/dl (12.0-15.5); MEAN CORPUSCULAR HEMOGLOBIN 25.9 pg (27.0-33.0); MEAN CORPUSCULAR HGB CONC 29.8 g/dl (32.0-36.5); MEAN CORPUSCULAR VOLUME 86.9 fl (80.0-96.0); PLATELET COUNT, AUTOMATED 387 10^3/uL (150-450); RED BLOOD COUNT 3.44 10^6/uL (4.00-5.40)
[2018-08-18 06:59] LABS: ALBUMIN 2.1 GM/DL (3.2-5.2); ALT/SGPT 13 U/L (12-78); BILIRUBIN,TOTAL 0.4 MG/DL (0.2-1.0); BLOOD UREA NITROGEN 23 MG/DL (7-18); CALCIUM LEVEL 7.9 MG/DL (8.8-10.2); CARBON DIOXIDE LEVEL 26 MEQ/L (21-32); CHLORIDE LEVEL 103 MEQ/L (98-107); CREATININE FOR GFR 0.88 MG/DL (0.55-1.30); GLOMERULAR FILTRATION RATE > 60.0 (>39); GLUCOSE, FASTING 222 MG/DL (70-100); POTASSIUM SERUM 4.6 MEQ/L (3.5-5.1); SODIUM LEVEL 138 MEQ/L (136-145); TOTAL PROTEIN 5.5 GM/DL (6.4-8.2)
[2018-08-18] MEDS: TIOTROPIUM INHALER/CAPSULE (SPIRIVA) INH SCH (08:09)
[2018-08-18] MEDS: SUCRALFATE 1 GM TAB PO SCH ×4 (08:21→20:39)
[2018-08-18] MEDS: PANTOPRAZOLE 40MG TAB (PROTONIX) PO SCH ×2 (08:21→20:40)
[2018-08-18] MEDS: HumaLOG INSULIN (NovoLOG) PER UNIT SC SCH ×4 (08:23→20:39)
--- NOTE | 2018-08-18 09:11 | IPNPDOC ---
Date Seen The patient was seen on 08/18/18. Progress Note ATTENDING: Dr. 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 S/P Angiogram as per Dr Martin with arthrectomy of fem-fem limb, s/p ballooning S/P Thrombolysis. Plavix was restarted at that time. 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 S/P revision Rt Ax Bifem bypass as per Dr Martin 08/16/18. Pt states that her foot has been feeling better. Denies any fevers, chills, weakness, fatigue, BOOKER, CP, SOB, cough, palpitations, abdominal pain, N/V/D or changes in bowel or bladder habits. PAST MEDICAL HISTORY: Hypertension. Hyperlipidemia. Type 2 diabetes. COPD. ERCP June 2017 cholangitis/biliary stent. H/O upper and lower GI bleed. EGD on 04/22/2017 that showed multiple (more than 10) small angioectasia of the duodenum treated with argon-beam coagulation. Recent admission for UGIB, EGD 07/10/18 Three non-bleeding angioectasias in the stomach. Treated with argon beam coagulation. A few non-bleeding angioectasias in the duodenum. Treated with argon beam coagulation. Patent biliary stent. chronic anemia history of vascular disease status post bilateral common iliac artery and angioplasty and stenting. H/O DVT of the left lower extremity and was anticoagulated on warfarin until her admission for GI Bleeding March 2017. PAST SURGICAL HISTORY: Tonsillectomy. Bilateral common iliac artery angioplasty stenting. EGDs and colonoscopies. 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 Treated with argon beam coagulation. A few non-bleeding angioectasias in the duodenum. Treated with argon beam coagulation. Patent biliary stent. ERCP as above. Right-sided axillofemoral and vhyaj-[id number] fem/fem bypass undetermined date. PE: GEN: 78yoF, appears stated age. No acute distress. Alert and oriented x 3. HEENT: Normocephalic, atraumatic. Moist mucous membranes. CHEST: Regular rate and rhythm, +S1, +S2 LUNGS: Clear to auscultation bilaterally. No wheezes, rales, or rhonchi. Breathing appears symmetric and easy. ABD: Round, soft, non-tender, non-distended. SKIN: No rashes. There is less discoloration of the left foot and toes with improved capillary refill. Faint DP pulse is obtained with Doppler, PT not obtained NEURO: Alert and oriented x 3. No focal deficits appreciated. 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 S/P Angiogram as per Dr Martin with arthrectomy of fem-fem limb, s/p ballooning S/P Thrombolysis. Plavix was restarted at that time. Pt followed up in the office today related to recurrent LLE pain, pain in the left foot and left toes as well as purplish discoloration of the left toes. H/o Right-sided axillofemoral and [id number] fem/fem bypass. S/P revision Rt Ax Bifem bypass as per Dr Martin 08/16/18. The pt is reviewed and examined as per Dr Martin this AM. D/C Heparin drip, restart Plavix. Monitor CBC/CMP Disposition- PT/OT/PFS. ARU screen. H/O upper and lower GI bleed. EGD on 04/22/2017 that showed multiple (more than 10) small angioectasia of the duodenum treated with argon-beam coagulation. Recent admission for UGIB, EGD 07/10 Three non-bleeding angioectasias in the stomach. Treated with argon beam coagulation. A few non-bleeding angioectasias in the duodenum. Treated with argon beam coagulation. Patent biliary stent. Follows with Dr Santoyo. Continue PPI BID Continue Carafate chronic anemia. Monitor CBC. Hgb 8.9. Monitor for bleeding. Monitor need for transfusion. Hypertension. Amlodipine/losartan as outpt, continue norvasc with hold parameters Hyperlipidemia. Statin Type 2 diabetes. Hold po meds. CC diet SSI. COPD. O2 as needed. Tobacco use. Continue to smoke 1-2 ppd. Reinforced cessation. VS, I&O, 24H, Alo Vital Signs/I&O Vital Signs Date Time Temp Pulse Resp B/P (MAP) Pulse Ox O2 Delivery O2 Flow Rate FiO2 08/18/18 08:22 90 22 97 08/18/18 08:00 98.4 128/59 (82) I&O- Last 24 Hours up to 6 AM 08/18/18 06:00 Intake Total 720 ml Output Total 725 ml Balance -5 ml Laboratory Data 24H LABS Laboratory Tests 2 08/17/18 11:37: Bedside Glucose (Misc Panel) 265H 08/17/18 11:42: Activated Partial Thromboplast Time 45.9H 08/17/18 17:16: Bedside Glucose (Misc Panel) 187H 08/17/18 18:19: Activated Partial Thromboplast Time 135.6*H 08/17/18 20:09: Bedside Glucose (Misc Panel) 199H 08/18/18 03:16: Nucleated Red Blood Cells % (auto) 0.0, Activated Partial Thromboplast Time 63.3H, Anion Gap 9, Glomerular Filtration Rate > 60.0, Blood Urea Nitrogen 23H, Creatinine 0.88, Sodium Level 138, Potassium Level 4.6, Chloride Level 103, Carbon Dioxide Level 26, Calcium Level 7.9L, Aspartate Amino Transf (AST/SGOT) 12, Alanine Aminotransferase (ALT/SGPT) 13, Alkaline Phosphatase 123H, Total Bilirubin 0.4, Total Protein 5.5L, Albumin 2.1L, Albumin/Globulin Ratio 0.62L 08/18/18 07:51: Bedside Glucose (Misc Panel) 202H CBC/BMP Laboratory Tests 08/18/18 03:16 Red Blood Count 3.44 L, Mean Corpuscular Volume 86.9, Mean Corpuscular Hemoglobin 25.9 L, Mean Corpuscular Hemoglobin Concent 29.8 L, Red Cell Distribution Width 18.6 H, Calcium Level 7.9 L, Aspartate Amino Transf ( AST/SGOT) 12, Alanine Aminotransferase (ALT/SGPT) 13, Alkaline Phosphatase 123 H, Total Bilirubin 0.4, Total Protein 5.5 L, Albumin 2.1 L Sunshine Allison August 18, 2018 09:11
[2018-08-18] MEDS: CLOPIDOGREL 75 MG TAB PO SCH (09:19)
[2018-08-18] MEDS: amLODIPine 5 MG TAB PO SCH (12:46)
[2018-08-18] MEDS: ATORVASTATIN 20 MG TAB PO SCH (20:40)
[2018-08-19 06:00] VITALS: BP 125/61
[2018-08-19] MEDS: TIOTROPIUM INHALER/CAPSULE (SPIRIVA) INH SCH (07:40)
[2018-08-19] MEDS: CLOPIDOGREL 75 MG TAB PO SCH (08:26)
[2018-08-19] MEDS: HumaLOG INSULIN (NovoLOG) PER UNIT SC SCH ×4 (08:26→21:16)
[2018-08-19] MEDS: PANTOPRAZOLE 40MG TAB (PROTONIX) PO SCH ×2 (08:26→21:15)
[2018-08-19] MEDS: SUCRALFATE 1 GM TAB PO SCH ×4 (08:27→21:15)
[2018-08-19] MEDS: PERCOCET 5MG/325MG TAB PO PRN ×2 (09:43→21:16)
--- NOTE | 2018-08-19 11:28 | IPNPDOC ---
Date Seen The patient was seen on 08/19/18. Progress Note ATTENDING: Dr. Martin PCP: Dr Hull CC: LLE pain HPI: [id number] with a past medical history significant for H/O GI Bleeding and recent admission to 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 S/P Angiogram as per Dr Martin with arthrectomy of fem-fem limb, s/p ballooning S/P Thrombolysis. Plavix was restarted at that time. 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 S/P revision Rt Ax Bifem bypass as per Dr Martin 08/16/18. Pt states that her foot has been feeling better. Denies any fevers, chills, weakness, fatigue, BOOKER, CP, SOB, cough, palpitations, abdominal pain, N/V/D or changes in bowel or bladder habits. PAST MEDICAL HISTORY: Hypertension. Hyperlipidemia. Type 2 diabetes. COPD. ERCP June 2017 cholangitis/biliary stent. H/O upper and lower GI bleed. EGD on 04/22/2017 that showed multiple (more than 10) small angioectasia of the duodenum treated with argon-beam coagulation. Recent admission for UGIB, EGD 07/10/18 Three non-bleeding angioectasias in the stomach. Treated with argon beam coagulation. A few non-bleeding angioectasias in the duodenum. Treated with argon beam coagulation. Patent biliary stent. chronic anemia history of vascular disease status post bilateral common iliac artery and angioplasty and stenting. H/O DVT of the left lower extremity and was anticoagulated on warfarin until her admission for GI Bleeding March 2017. PAST SURGICAL HISTORY: Tonsillectomy. Bilateral common iliac artery angioplasty stenting. EGDs and colonoscopies. 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 Treated with argon beam coagulation. A few non-bleeding angioectasias in the duodenum. Treated with argon beam coagulation. Patent biliary stent. ERCP as above. Right-sided axillofemoral and [id number] fem/fem bypass undetermined date. PE: GEN: 78yoF, appears stated age. No acute distress. Alert and oriented x 3. HEENT: Normocephalic, atraumatic. Moist mucous membranes. CHEST: Regular rate and rhythm, +S1, +S2 LUNGS: Clear to auscultation bilaterally. No wheezes, rales, or rhonchi. Breathing appears symmetric and easy. ABD: Round, soft, non-tender, non-distended. SKIN: No rashes. Dressing Rt groin area. There is less discoloration of the left foot and toes with improved capillary refill. NEURO: Alert and oriented x 3. No focal deficits appreciated. A&P: 78yoF with a past medical history significant for H/O GI Bleeding and recent admission to 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 S/P Angiogram as per Dr Martin with arthrectomy of fem-fem limb, s/p ballooning S/P Thrombolysis. Plavix was restarted at that time. Pt followed up in the office today related to recurrent LLE pain, pain in the left foot and left toes as well as purplish discoloration of the left toes. H/o Right-sided axillofemoral and ygkyy-jw-mvch fem/fem bypass. S/P revision Rt Ax Bifem bypass as per Dr Martin 08/16/18. The pt is reviewed and examined as per Dr Martin. Plavix restarted 08/18/18. Monitor CBC/CMP Disposition: PT not safe/OT at baseline PFS requested as pt family has previously expressed concerns with taking her home. ARU screen pending. Re evaluated Pt this afternoon related to nursing reporting inc discoloration of Let foot. Pt reports pain Lt great toe at baseline. Foot color appears at baseline, toes with mild purplish discoloration, appears at baseline. Pulses obtained: Rt foot palpable DP, biphasic PT with doppler. Lt foot monophasic DP with doppler, PT unable. This appears at Pt's baseline. Dressing intact Rt groin area with no bleeding noted currently. H/O upper and lower GI bleed. EGD on 04/22/2017 that showed multiple (more than 10) small angioectasia of the duodenum treated with argon-beam coagulation. Recent admission for UGIB, EGD 07/10 Three non-bleeding angioectasias in the stomach. Treated with argon beam coagulation. A few non-bleeding angioectasias in the duodenum. Treated with argon beam coagulation. Patent biliary stent. Follows with Dr Santoyo. Continue PPI BID Continue Carafate chronic anemia. Monitor CBC. Hgb 8.9. Monitor for bleeding. Monitor need for transfusion. Hypertension. Amlodipine/losartan as outpt, continue norvasc with hold parameters Hyperlipidemia. Statin Type 2 diabetes. Hold po meds. CC diet SSI. COPD. O2 as needed. Tobacco use. Continue to smoke 1-2 ppd. Reinforced cessation. VS, I&O, 24H, Fishbone Vital Signs/I&O Vital Signs Date Time Temp Pulse Resp B/P (MAP) Pulse Ox O2 Delivery O2 Flow Rate FiO2 08/19/18 10:13 18 08/19/18 06:00 98.8 95 125/61 (82) 96 I&O- Last 24 Hours up to 6 AM 08/19/18 06:00 Intake Total 480 ml Output Total 1225 ml Balance -745 ml Laboratory Data 24H LABS Laboratory Tests 2 08/18/18 12:00: Bedside Glucose (Misc Panel) 248H 08/18/18 16:38: Bedside Glucose (Misc Panel) 142H 08/18/18 19:39: Bedside Glucose (Misc Panel) 229H 08/19/18 05:39: Bedside Glucose (Misc Panel) 206H Sunshine Allison August 19, 2018 11:28
[2018-08-19] MEDS: amLODIPine 5 MG TAB PO SCH (13:11)
[2018-08-19 14:00] VITALS: BP 117/48
[2018-08-19] MEDS: ATORVASTATIN 20 MG TAB PO SCH (21:15)
[2018-08-19 22:00] VITALS: BP 143/71
[2018-08-20 06:00] VITALS: BP 150/76
[2018-08-20 06:05] LABS: HEMATOCRIT 27.3 % (36.0-47.0); HEMOGLOBIN 8.5 g/dl (12.0-15.5); MEAN CORPUSCULAR HEMOGLOBIN 26.9 pg (27.0-33.0); MEAN CORPUSCULAR HGB CONC 31.1 g/dl (32.0-36.5); MEAN CORPUSCULAR VOLUME 86.4 fl (80.0-96.0); PLATELET COUNT, AUTOMATED 405 10^3/uL (150-450); RED BLOOD COUNT 3.16 10^6/uL (4.00-5.40); WHITE BLOOD COUNT 6.9 10^3/uL (4.0-10.0)
[2018-08-20] MEDS: PERCOCET 5MG/325MG TAB PO PRN ×4 (06:16→21:26)
[2018-08-20 06:36] LABS: ALT/SGPT 12 U/L (12-78); BILIRUBIN,TOTAL 0.5 MG/DL (0.2-1.0); BLOOD UREA NITROGEN 10 MG/DL (7-18); CARBON DIOXIDE LEVEL 27 MEQ/L (21-32); CHLORIDE LEVEL 106 MEQ/L (98-107); GLOMERULAR FILTRATION RATE > 60.0 (>39); GLUCOSE, FASTING 180 MG/DL (70-100); POTASSIUM SERUM 3.9 MEQ/L (3.5-5.1); SODIUM LEVEL 140 MEQ/L (136-145); TOTAL PROTEIN 6.3 GM/DL (6.4-8.2)
[2018-08-20] MEDS: TIOTROPIUM INHALER/CAPSULE (SPIRIVA) INH SCH (07:49)
[2018-08-20] MEDS: PANTOPRAZOLE 40MG TAB (PROTONIX) PO SCH ×2 (08:26→21:26)
[2018-08-20] MEDS: SUCRALFATE 1 GM TAB PO SCH ×4 (08:26→21:25)
[2018-08-20] MEDS: CLOPIDOGREL 75 MG TAB PO SCH (08:26)
[2018-08-20] MEDS: HumaLOG INSULIN (NovoLOG) PER UNIT SC SCH ×4 (08:27→21:00)
--- NOTE | 2018-08-20 10:37 | IPNPDOC ---
Date Seen The patient was seen on 08/20/18. Progress Note ATTENDING: Dr. 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 S/P Angiogram as per Dr Martin with arthrectomy of fem-fem limb, s/p ballooning S/P Thrombolysis. Plavix was restarted at that time. 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 S/P revision Rt Ax Bifem bypass as per Dr Martin 08/16/18. Pt states that her foot has been feeling better. No concerns today. Denies any fevers, chills, weakness, fatigue, BOOKER, CP, SOB, cough, palpitations, abdominal pain, N/V/D or changes in bowel or bladder habits. PAST MEDICAL HISTORY: Hypertension. Hyperlipidemia. Type 2 diabetes. COPD. ERCP June 2017 cholangitis/biliary stent. H/O upper and lower GI bleed. EGD on 04/22/2017 that showed multiple (more than 10) small angioectasia of the duodenum treated with argon-beam coagulation. Recent admission for UGIB, EGD 07/10/18 Three non-bleeding angioectasias in the stomach. Treated with argon beam coagulation. A few non-bleeding angioectasias in the duodenum. Treated with argon beam coagulation. Patent biliary stent. chronic anemia history of vascular disease status post bilateral common iliac artery and angioplasty and stenting. H/O DVT of the left lower extremity and was anticoagulated on warfarin until her admission for GI Bleeding March 2017. PAST SURGICAL HISTORY: Tonsillectomy. Bilateral common iliac artery angioplasty stenting. EGDs and colonoscopies. 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 Treated with argon beam coagulation. A few non-bleeding angioectasias in the duodenum. Treated with argon beam coagulation. Patent biliary stent. ERCP as above. Right-sided axillofemoral and vgerj-cy-txwa fem/fem bypass undetermined date. PE: GEN: 78yoF, appears stated age. No acute distress. Alert and oriented x 3. HEENT: Normocephalic, atraumatic. Moist mucous membranes. CHEST: Regular rate and rhythm, +S1, +S2 LUNGS: Clear to auscultation bilaterally. No wheezes, rales, or rhonchi. Breathing appears symmetric and easy. ABD: Round, soft, non-tender, non-distended. SKIN: No rashes. Dressing Rt groin area. There is less discoloration of the left foot and toes with improved capillary refill. RLE with palpable DP, doppler PT biphasic. LLE with doppler monophasic DP/PT. NEURO: Alert and oriented x 3. No focal deficits appreciated. 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 S/P Angiogram as per Dr Martin with arthrectomy of fem-fem limb, s/p ballooning S/P Thrombolysis. Plavix was restarted at that time. Pt followed up in the office today related to recurrent LLE pain, pain in the left foot and left toes as well as purplish discoloration of the left toes. H/o Right-sided axillofemoral and [id number]-[id number] fem/fem bypass. S/P revision Rt Ax Bifem bypass as per Dr Martin 08/16/18. The pt is reviewed and examined as per Dr Martin. Plavix restarted 08/18/18. Monitor CBC/CMP Disposition: PT/OT safe, at baseline. PFS requested and assisting with D/C plan as pt family has previously expressed concerns with taking her home. Tentative plan for D/C 08/21/18. H/O upper and lower GI bleed. EGD on 04/22/2017 that showed multiple (more than 10) small angioectasia of the duodenum treated with argon-beam coagulation. Recent admission for UGIB, EGD 07/10 Three non-bleeding angioectasias in the stomach. Treated with argon beam coagulation. A few non-bleeding angioectasias in the duodenum. Treated with argon beam coagulation. Patent biliary stent. Follows with Dr Santoyo. Continue PPI BID Continue Carafate chronic anemia. Monitor CBC. Hgb 8.9. Monitor for bleeding. Monitor need for transfusion. Hypertension. Amlodipine/losartan as outpt, continue norvasc with hold parameters Hyperlipidemia. Statin Type 2 diabetes. Hold po meds. CC diet SSI. COPD. O2 as needed. Tobacco use. Continue to smoke 1-2 ppd. Reinforced cessation. VS, I&O, 24H, Fishbone Vital Signs/I&O Vital Signs Date Time Temp Pulse Resp B/P (MAP) Pulse Ox O2 Delivery O2 Flow Rate FiO2 08/20/18 07:49 84 08/20/18 07:49 16 08/20/18 06:00 98.0 150/76 (100) 96 I&O- Last 24 Hours up to 6 AM 08/20/18 06:00 Intake Total 1080 ml Output Total 950 ml Balance 130 ml Laboratory Data 24H LABS Laboratory Tests 2 08/19/18 11:42: Bedside Glucose (Misc Panel) 184H 08/19/18 16:54: Bedside Glucose (Misc Panel) 193H 08/19/18 19:52: Bedside Glucose (Misc Panel) 251H 08/20/18 05:45: Nucleated Red Blood Cells % (auto) 0.0, Anion Gap 7L, Glomerular Filtration Rate > 60.0, Blood Urea Nitrogen 10#, Creatinine 0.60, Sodium Level 140, Potassium Level 3.9, Chloride Level 106, Carbon Dioxide Level 27, Calcium Level 8.0L, Aspartate Amino Transf (AST/SGOT) 6L, Alanine Aminotransferase (ALT/SGPT) 12, Alkaline Phosphatase 115, Total Bilirubin 0.5, Total Protein 6.3L, Albumin 2.0L, Albumin/Globulin Ratio 0.47L CBC/BMP Laboratory Tests 08/20/18 05:45 Red Blood Count 3.16 L, Mean Corpuscular Volume 86.4, Mean Corpuscular Hemoglobin 26.9 L, Mean Corpuscular Hemoglobin Concent 31.1 L, Red Cell Distribution Width 17.8 H, Calcium Level 8.0 L, Aspartate Amino Transf (AST/SGOT) 6 L, Alanine Aminotransferase (ALT/SGPT) 12, Alkaline Phosphatase 115, Total Bilirubin 0.5, Total Protein 6.3 L, Albumin 2.0 L Sunshine Allison August 20, 2018 10:37
[2018-08-20] MEDS: amLODIPine 5 MG TAB PO SCH (11:48)
[2018-08-20 14:00] VITALS: BP 126/52
[2018-08-20] MEDS: ATORVASTATIN 20 MG TAB PO SCH (21:25)
[2018-08-20 22:00] VITALS: BP 147/79
[2018-08-21 06:00] VITALS: BP 144/79
[2018-08-21 06:30] LABS: HEMATOCRIT 29.6 % (36.0-47.0); HEMOGLOBIN 9.2 g/dl (12.0-15.5); MEAN CORPUSCULAR HEMOGLOBIN 26.7 pg (27.0-33.0); MEAN CORPUSCULAR HGB CONC 31.1 g/dl (32.0-36.5); MEAN CORPUSCULAR VOLUME 85.8 fl (80.0-96.0); PLATELET COUNT, AUTOMATED 462 10^3/uL (150-450); RED BLOOD COUNT 3.45 10^6/uL (4.00-5.40); WHITE BLOOD COUNT 7.2 10^3/uL (4.0-10.0)
[2018-08-21 06:50] LABS: ALBUMIN 2.3 GM/DL (3.2-5.2); ALT/SGPT 12 U/L (12-78); BILIRUBIN,TOTAL 0.6 MG/DL (0.2-1.0); BLOOD UREA NITROGEN 10 MG/DL (7-18); CALCIUM LEVEL 8.2 MG/DL (8.8-10.2); CARBON DIOXIDE LEVEL 28 MEQ/L (21-32); CHLORIDE LEVEL 105 MEQ/L (98-107); CREATININE FOR GFR 0.56 MG/DL (0.55-1.30); GLOMERULAR FILTRATION RATE > 60.0 (>39); GLUCOSE, FASTING 195 MG/DL (70-100); POTASSIUM SERUM 4.1 MEQ/L (3.5-5.1); SODIUM LEVEL 138 MEQ/L (136-145); TOTAL PROTEIN 6.6 GM/DL (6.4-8.2)
[2018-08-21] MEDS: TIOTROPIUM INHALER/CAPSULE (SPIRIVA) INH SCH (07:34)
[2018-08-21] MEDS: SUCRALFATE 1 GM TAB PO SCH ×2 (08:39→12:28)
[2018-08-21] MEDS: HumaLOG INSULIN (NovoLOG) PER UNIT SC SCH ×2 (08:39→12:29)
[2018-08-21] MEDS: CLOPIDOGREL 75 MG TAB PO SCH (08:39)
[2018-08-21] MEDS: PANTOPRAZOLE 40MG TAB (PROTONIX) PO SCH (08:39)
[2018-08-21] MEDS: PERCOCET 5MG/325MG TAB PO PRN (10:49)
--- NOTE | 2018-08-21 11:13 | DS.PDOC ---
Discharge Summary General Date of Admission August 10, 2018 at 12:02 Date of Discharge 08/21/18 Discharge Summary PROCEDURES PERFORMED DURING STAY: S/P revision Rt Ax Bifem bypass as per Dr Martin 08/16/18. 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 S/P revision Rt Ax Bifem bypass as per Dr Martin 08/16/18. history of vascular disease status post bilateral common iliac artery and angioplasty and stenting. Hypertension. Hyperlipidemia. Type 2 diabetes. COPD. H/O upper and lower GI bleed. chronic anemia H/O DVT of the left lower extremity and was anticoagulated on warfarin until her admission for GI Bleeding March 2017. COMPLICATIONS/CHIEF COMPLAINT: Left foot pain HISTORY OF PRESENT ILLNESS: 78yoF with a past medical history significant for H/O GI Bleeding and recent admission to [facility] 07/28/18-08/04/18 related to LLE limb ischemia secondary to cross femoral limb occlusion. S/P Angiogram as per Dr Martin with arthrectomy of fem-fem limb, s/p ballooning S/P Thrombolysis. Plavix was restarted at that time. 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 S/P revision Rt Ax Bifem bypass as per Dr Martin 08/16/18. HOSPITAL COURSE: S/P revision Rt Ax Bifem bypass as per Dr Martin 08/16/18. Postoperatively the patient has recovered well. She has reported pain in her left foot has been improved. She still has some pain in her left great toe which has been at her baseline. Has been less discoloration of the left foot and left toes. Sometimes she does have discoloration of her leg is dependent, but resolves with elevation of the left lower extremity. Pulses have been intact in the left lower extremity. She has been out of bed with physical therapy who signed off her case 08/19/18. Patient had ambulated 150 feet. She was felt to be back to her functional baseline. She did not exhibit any confusion or safety concerns. The patient was also seen by occupational therapy 08/19/18 and felt to be at her baseline status with no concerns completing activities of daily living. Patient family services was also consulted to assist with discharge. There have been family concerns regarding her discharge which were discussed at length with the patient's family. There was discussion with the patient regarding considering assisted living which the patient adamantly declined and reaffirms this today. Plan is for discharge home with home care services. The patient verbalizes understanding and agreement. The patient's granddaughter Mary was also contacted, she has discussed the patient's disposition with patient family services, and feels they are ready to accept the patient home. The patient is felt stable from a medical standpoint to discharge home 08/21/18. DISCHARGE MEDICATIONS: Please see below. ALLERGIES: Please see below. PHYSICAL EXAMINATION ON DISCHARGE: VITAL SIGNS: Please see below. GEN: 78yoF, appears stated age. No acute distress. Alert and oriented x 3. HEENT: Normocephalic, atraumatic. Moist mucous membranes. CHEST: Regular rate and rhythm, +S1, +S2 LUNGS: Clear to auscultation bilaterally. No wheezes, rales, or rhonchi. Breathing appears symmetric and easy. ABD: Round, soft, non-tender, non-distended. SKIN: No rashes. Dressing Rt groin area. There is less discoloration of the left foot and toes with improved capillary refill. RLE with palpable DP, doppler PT biphasic. LLE with doppler monophasic DP/PT. NEURO: Alert and oriented x 3. No focal deficits appreciated. LABORATORY DATA: Please see below. IMAGING: LE US Real-time ultrasound evaluation and duplex Doppler interrogation of bilateral lower extremity arterial systems is performed. PAUL right is 1.0 and left 0.25. There is a history of a right axillofemoral femoral bypass graft and left superficial femoral artery stent, with recent angiogram performed 07/31/2018. The femoral to femoral bypass graft is occluded. Collateral arterial vessel is seen supplying the left external iliac artery. There is very slow flow throughout the left lower extremity arterial system, with monophasic waveforms throughout. Patent flow is seen in the right axillary to right femoral bypass graft with velocity in the mid aspect 103 cm/s. Biphasic waveforms are seen throughout the right lower extremity. 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 Collateral supply provided to left external iliac artery with very slow flow throughout the left lower extremity arterial system. Electronically Signed by Allan Omalley MD 08/10/2018 07:50 P PROGNOSIS: guarded ACTIVITY: As tolerated. DIET: CC DISCHARGE PLAN: Discharged home with services. DISCHARGE INSTRUCTIONS: 1. Activity as tolerated. 2. Consistent carbohydrate diet. 3. No driving until outpatient follow-up. 4. Strongly encourage smoking cessation. 5. Continue Plavix 75 mg daily. 6. Follow up with PCP in 4-7 days. 7. Follow up with Dr. Martin's office in 7-10 days. ITEMS TO FOLLOWUP ON ON OUTPATIENT: 1. Smoking cessation. DISCHARGE CONDITION: Stable. TIME SPENT ON DISCHARGE: Greater than 30 minutes. Vital Signs/I&Os Vital Signs Date Time Temp Pulse Resp B/P (MAP) Pulse Ox O2 Delivery O2 Flow Rate FiO2 08/21/18 06:00 98.6 88 18 144/79 (100) 96 I&O- Last 24 Hours up to 6 AM 08/21/18 06:00 Intake Total 1350 ml Output Total 750 ml Balance 600 ml Laboratory Data Labs 24H Laboratory Tests 2 08/20/18 11:40: Bedside Glucose (Misc Panel) 217H 08/20/18 17:04: Bedside Glucose (Misc Panel) 187H 08/20/18 21:52: Bedside Glucose (Misc Panel) 187H 08/21/18 06:05: Nucleated Red Blood Cells % (auto) 0.0, Anion Gap 5L, Glomerular Filtration Rate > 60.0, Blood Urea Nitrogen 10, Creatinine 0.56, Sodium Level 138, Potassium Level 4.1, Chloride Level 105, Carbon Dioxide Level 28, Calcium Level 8.2L, Aspartate Amino Transf (AST/SGOT) 8, Alanine Aminotransferase (ALT/SGPT) 12, Alkaline Phosphatase 119H, Total Bilirubin 0.6, Total Protein 6.6, Albumin 2.3L, Albumin/Globulin Ratio 0.53L CBC/BMP Laboratory Tests 08/21/18 06:05 Red Blood Count 3.45 L, Mean Corpuscular Volume 85.8, Mean Corpuscular Hemoglobin 26.7 L, Mean Corpuscular Hemoglobin Concent 31.1 L, Red Cell Distribution Width 17.7 H, Calcium Level 8.2 L, Aspartate Amino Transf (AST/S GOT) 8, Alanine Aminotransferase (ALT/SGPT) 12, Alkaline Phosphatase 119 H, Total Bilirubin 0.6, Total Protein 6.6, Albumin 2.3 L FSBS Laboratory Tests Test 08/20/18 11:40 08/20/18 17:04 08/20/18 21:52 Range/Units Bedside Glucose (Misc Panel) 217 187 187 83-110 MG/DL Discharge Medications Scheduled Amlodipine Besylate (Amlodipine Besylate) 5 Mg Tablet, 5 MG PO DAILY, (Reported) TAKES AT NOON Atorvastatin Calcium (Atorvastatin Calcium) 40 Mg Tab, 40 MG PO QHS, (Reported) Clopidogrel Bisulfate (Clopidogrel) 75 Mg Tablet, 75 MG PO DAILY, (Reported) TAKES AT NOON Ferrous Sulfate (Ferrous Sulfate) 325 Mg Tablet, 325 MG PO BID, (Reported) Glimepiride (Glimepiride) 2 Mg Tablet, 2 MG PO QHS, (Reported) Metformin HCl (Metformin HCl ER) 500 Mg Tab.er.24h, 1,000 MG PO BID, (Reported) Pantoprazole Sodium (Protonix) 40 Mg Tab, 40 MG PO BID, (Reported) Sitagliptin (Januvia) 50 Mg Tab, 50 MG PO DAILY, (Reported) Tiotropium [place] (Spiriva) 18 Mcg Cap, 1 CAP INH DAILY, (Reported) Allergies Coded Allergies: No Known Allergies (Verified , 02/24/06) Sunshine Allison August 21, 2018 11:13
[2018-08-21 12:28] VITALS: BP 143/80
[2018-08-21] MEDS: amLODIPine 5 MG TAB PO SCH (12:28)
[2018-08-21 14:00] VITALS: BP 143/78
--- NOTE | 2018-08-28 19:12 | RO ---
DATE OF PROCEDURE: 08/16/2018 PREOPERATIVE DIAGNOSIS: Dysfunctional right to left femoral-femoral limb from her right axillofemoral bypass graft. POSTOPERATIVE DIAGNOSES: Dysfunctional right to left femoral-femoral limb from her right axillofemoral bypass graft. PROCEDURE: Revision of right axillofemoral bypass graft limb. SURGEON: Dr. Nohemi Martin PUMP MECHANIC: None. INDICATION: The patient is a 78-year-old female with left lower extremity ischemia and thrombosed cross limb of her right axillofemoral bifemoral bypass graft. The patient has had recurrent thrombolysis and angioplasty and has continued thrombosis of the graft. ANESTHESIA: Local monitored anesthesia care (MAC). ESTIMATED BLOOD LOSS: 50 mL. IV FLUIDS: 300 mL. HEPARIN: 5000 units followed by an additional 3000 unit bolus. COMPLICATIONS: None. DRAINS: None. SPECIMENS: None. IMPLANTS: None. DESCRIPTION OF PROCEDURE: The patient was taken to the operating room, placed supine on the operating room table and prepped and draped in the standard surgical fashion. Incision was made overlying the graft in the right inguinal region, and the graft was sharply dissected free. The limb was transected and oversewn at the takeoff of the femoral-femoral portion of the axillofemoral bypass graft. A thrombectomy was performed with a #4 Aureliano. The axillofemoral portion of the graft was clamped and then the femoral-femoral portion of the graft was anastomosed to the axillofemoral portion with an end-to-side anastomosis using #6-0 Prolene suture. There was good flow into the left lower extremity at the completion of the anastomosis. Hemostasis was obtained after which the wounds were closed using #2-0 Vicryl to approximate the deeper layers and domo to approximate the skin. Dressings were then applied. The patient tolerated the procedure well. All instrument, sponge and needle counts were correct at the end the case. There were no complications. Dr. Martin was present for and directed the entire case. The patient was transferred to the recovery room awake, alert, extubated and in stable condition.
== END 2018-08-21 15:20 | disposition home health service (06) | DRG 254 ==
LOC: M MSPAV 12:02 → M ICU 08-16 09:52 → M MS5PR 08-18 10:50
PROVIDERS: ADMIT Surgery Vascular Surgery; ATTEND Surgery Vascular Surgery
PROC: 04WY0KZ Revision of Nonautologous Tissue Substitute in Lower Artery, Open Approach (ICD-10-PCS; 2018-08-16)
PROC: 04CK0ZZ Extirpation of Matter from Right Femoral Artery, Open Approach (ICD-10-PCS; principal; 2018-08-16 08:00)
DX: T82.868A Thrombosis due to vascular prosthetic devices, implants and grafts, initial encounter (principal); J44.9 Chronic obstructive pulmonary disease, unspecified; D64.9 Anemia, unspecified; E78.5 Hyperlipidemia, unspecified; I10 Essential (primary) hypertension; E11.51 Type 2 diabetes mellitus with diabetic peripheral angiopathy without gangrene; Z79.899 Other long term (current) drug therapy; F17.200 Nicotine dependence, unspecified, uncomplicated; Y83.1 Surgical operation with implant of artificial internal device as the cause of abnormal reaction of the patient, or of later complication, without mention of misadventure at the time of the procedure

== ENCOUNTER 2018-08-23 10:41 | Inpatient (IN) | payer MEDICARE ==
[~2018-08-23] VITALS: Ht 170.2 cm; Wt 51.4 kg
[2018-08-23] MEDS: PANTOPRAZOLE 40MG TAB (PROTONIX) PO SCH ×2 (09:00→20:46)
[~2018-08-23 10:41] MED LIST changes: +SUCR1TAB56 PO
--- NOTE | 2018-08-23 11:21 | REP ---
Clinical: Acute chest pain . Comparison: 07/06/2018. Findings: The mediastinum and cardiac silhouette are stable and within normal limits for portable technique. The lung mulligan there is a stable chronic changes without acute consolidation, effusion, or pneumothorax. Previously identified lung nodule in the left upper lung zone cannot be excluded. Skeletal structures are intact. Impression: No acute cardiopulmonary process appreciated. Previously identified lung nodule in the left upper lung zone cannot be excluded. Electronically Signed by Marko Younger MD 08/23/2018 11:12 A
[2018-08-23 11:24] LABS: BASO # 0.1 10^3/uL (0.0-0.2); BASO % 0.4 % (0.0-1.0); EOS # 0.1 10^3/uL (0.0-0.50); EOS % 0.7 % (0.0-3.0); HEMATOCRIT 34.3 % (36.0-47.0); HEMOGLOBIN 10.6 g/dl (12.0-15.5); LYMPH # 0.6 10^3/uL (1.5-4.5); LYMPH % 5.7 % (24.0-44.0); MEAN CORPUSCULAR HEMOGLOBIN 26.6 pg (27.0-33.0); MEAN CORPUSCULAR HGB CONC 30.9 g/dl (32.0-36.5); MEAN CORPUSCULAR VOLUME 86.2 fl (80.0-96.0); MONO # 0.9 10^3/uL (0.0-0.8); NEUTROPHILS # 9.5 10^3/uL (1.8-7.7); NEUTROPHILS % 84.5 % (36.0-66.0); PLATELET COUNT, AUTOMATED 525 10^3/uL (150-450); RED BLOOD COUNT 3.98 10^6/uL (4.00-5.40); WHITE BLOOD COUNT 11.2 10^3/uL (4.0-10.0)
[2018-08-23 12:01] LABS: INR 1.04; PROTHROMBIN TIME 13.7 SECONDS (12.1-14.4)
[2018-08-23 12:02] LABS: PARTIAL THROMBOPLASTIN TIME 28.2 SECONDS (25.4-37.6)
[2018-08-23 12:03] LABS: ALBUMIN 2.6 GM/DL (3.2-5.2); ALT/SGPT 12 U/L (12-78); BILIRUBIN,DIRECT 0.2 MG/DL (0.0-0.2); BILIRUBIN,TOTAL 0.5 MG/DL (0.2-1.0); BLOOD UREA NITROGEN 17 MG/DL (7-18); C REACTIVE PROTEIN QUANTITATIV 1.42 MG/DL (0.00-0.30); CALCIUM LEVEL 8.6 MG/DL (8.8-10.2); CARBON DIOXIDE LEVEL 24 MEQ/L (21-32); CHLORIDE LEVEL 106 MEQ/L (98-107); CK-MB VALUE MASS < 1.0 NG/ML (<3.6); CPK CREATINE PHOSPHOKINASE 39 U/L (26-192); CREATININE FOR GFR 0.82 MG/DL (0.55-1.30); FREE T4 1.45 NG/DL (0.76-1.46); GLOMERULAR FILTRATION RATE > 60.0 (>39); GLUCOSE, FASTING 164 MG/DL (70-100); LIPASE 54 U/L (73-393); MB/CK RELATIVE INDEX 2.56 (< OR =4); POTASSIUM SERUM 3.9 MEQ/L (3.5-5.1); SODIUM LEVEL 140 MEQ/L (136-145); TOTAL PROTEIN 7.6 GM/DL (6.4-8.2); TROPONIN I < 0.02 NG/ML (< 0.10)
[2018-08-23 12:06] LABS: ERYTHROCYTE SEDIMENTATION RATE 69 mm/hr (0-30)
[2018-08-23] MEDS ORDERED: HEPARIN DRIP 25,000 UNITS in APPROPRIATE DILUENT 1 EA IV SCH (13:01)
[2018-08-23] MEDS ORDERED: GLUCOSE 4 GM CHEW TABLET PO PRN ×2 (13:45→16:15)
[2018-08-23] MEDS ORDERED: GLUCAGON FOR INJ 1 MG VIAL (J1610) SC PRN ×2 (13:45→16:15)
[2018-08-23] MEDS ORDERED: DEXTROSE 50% 50 ML SYRINGE IV PRN ×2 (13:45→16:15)
[2018-08-23] MEDS ORDERED: ACETAMINOPHEN TAB 650MG DOSE (2X325MG) PO PRN (13:45)
--- NOTE | 2018-08-23 14:01 | HPEPDOC ---
General Date of Admission Aug 23, 2018 at 13:34 Date of Service: Aug 23, 2018 Primary Care Physician: Jr Hull Collins Attending Physician: LALO CHACON MD Chief Complaint The patient is a 78-year-old female admitted with a reason for visit of Vascular Insufficiency Of Limb. Source: Patient Exam Limitations: No limitations Timing/Duration: Unsure Severity: Severe Associated Symptoms: Other (cold left foot) History of Present Illness 78 years old white female with past medical history of left lobectomy, ischemia, occlusion of femoral to femoral bypass graft from right to left, status post revision right ax bifemoral bypass, hypertension, hyperlipidemia, type 2 diabetes mellitus, COPD, history of upper and lower GI bleed, history of chronic anemia, history of DVT left lower extremity was recently discharged on 08/21/2018 revision of her right bifemoral bypass. Patient presented in ER with chief complaints of cold left foot. Patient was seen by Dr. Martin in the ED and advice ED physician for us to admit patient for possible surgical intervention soon. Patient denies any other complaints such as chest pain, shortness of breath, nausea, vomiting, fever, abdominal pain, etc. Home Medications Scheduled Amlodipine Besylate (Amlodipine Besylate) 5 Mg Tablet, 5 MG PO DAILY, (Reported) TAKES AT NOON Atorvastatin Calcium (Atorvastatin Calcium) 40 Mg Tab, 40 MG PO QHS, (Reported) Clopidogrel Bisulfate (Clopidogrel) 75 Mg Tablet, 75 MG PO DAILY, (Reported) TAKES AT NOON Ferrous Sulfate (Ferrous Sulfate) 325 Mg Tablet, 325 MG PO BID, (Reported) Glimepiride (Glimepiride) 2 Mg Tablet, 2 MG PO QHS, (Reported) Metformin HCl (Metformin HCl ER) 500 Mg Tab.er.24h, 1,000 MG PO BID, (Reported) Pantoprazole Sodium (Protonix) 40 Mg Tab, 40 MG PO BID, (Reported) Sitagliptin (Januvia) 50 Mg Tab, 50 MG PO DAILY, (Reported) Tiotropium [place] (Spiriva) 18 Mcg Cap, 1 CAP INH DAILY, (Reported) Allergies Coded Allergies: No Known Allergies (Verified , 02/24/06) Past Medical History Medical History as per HPI, hypertension, hyperlipidemia, diabetes mellitus, his COPD, GI bleed, history of DVT Surgical History Tonsillectomy, bilateral common iliac artery angioplasty, stenting, EGD, colonoscopies, ERCP, biliary stent placement, right-sided axillofemoral and [id number] femorofemoral bypass Family History Significant Family History: No pertinent family hx Social History * Smoker: greater than 1 pack/day Alcohol: Denies A-FIB/CHADSVASC A-FIB History Current/History of A-Fib/PAF?: No Review of Systems Constitutional: Denies: Chills, Fever, Malaise, Night Sweats, Weakness, Fatigue, Weight Loss, Lethargy, Other Eyes: Denies: Pain, Vision change, Conjunctivae inflammation, Eyelid inflammation, Redness, Other ENT: Denies: Head Aches, Ear Pain, Dysphagia, Sinus Congestion, Post Nasal Drip, Sore Throat, Epistaxis, Other Symptoms Skin: Denies: Rash, Lesions, Jaundice, Bruising, Itching, Dry, Breakdown, Nail Changes, Other Pulmonary: Denies: Dyspnea, Cough, Pleuritic Chest Pain, Other Symptoms Cardiovascular: Denies: Chest Pain, Palpitations, Orthopnea, Paroxysmal Noc. Dyspnea, Edema, Lt Headedness, Other Symptoms Gastrointestinal: Denies: Nausea, Vomiting, Abdominal Pain, Diarrhea, Constipation, Melena, Hematochezia, Other Symptoms Genitourinary: Denies: Dysuria, Frequency, Incontinence, Hematuria, Retention, Other Symptoms Hematologic: Denies: Bruising, Bleeding Excessively, Petecchia, Purpura, Enlarged Lymph Nodes, Other Hematologic Endocrine: Denies: Polydipsia, Polyphagia, Polyuria, Heat Intolerance, Cold Intolerance, Other Endocrine Sx Musculoskeletal: Reports: Other Symptoms (: Left foot) Neurological: Denies: Weakness, Numbness, Incoordination, Change in speech, Confusion, Seizures, Other Symptoms Psych: Denies: Mood Normal, Anxiety, Depression, Memory Issues, Thoughts of Self Harm, Anger, Thoughts of Harming Other, Other Psych Physical Examination General Exam: Positive: Alert, Cooperative, No Acute Distress Eye Exam: Positive: PERRLA, Conjunctiva & lids normal ENT Exam: Positive: Atraumatic, Mucous membr. moist/pink Neck Exam: Positive: Supple Chest Exam: Positive: Clear to auscultation, Normal air movement Heart Exam: Positive: Rate Normal, Normal S1, Normal S2 Telemetry: Positive: No significant arrhythmia Abdomen Exam: Positive: Normal bowel sounds, Soft Extremity Exam: Positive: Other (. Left foot is cold on touch. There is no popliteal pulses to left popliteal artery) Skin Exam: Positive: Other skin issue (. As above) Neuro Exam: Negative: Normal Gait, Normal Speech, Strength at 5/5 X4 ext, Normal Tone, Sensation Intact, Cranial Nerves 3-12 NL, Reflexes 2+, Other Psych Exam: Negative: Mental status NL, Mood NL, Anxiety, Memory Intact, Oriented x 3, Other Vital Signs Vital Signs Date Time Temp Pulse Resp B/P (MAP) Pulse Ox O2 Delivery O2 Flow Rate FiO2 08/23/18 12:15 96 110/54 (72) 93 08/23/18 10:51 96.8 16 Room Air Laboratory Data Labs 24H Laboratory Tests 2 08/23/18 11:11: Immature Granulocyte % (Auto) 0.7, White Blood Count 11.2H, Red Blood Count 3.98L, Hemoglobin 10.6L, Hematocrit 34.3L, Mean Corpuscular Volume 86.2, Mean Corpuscular Hemoglobin 26.6L, Mean Corpuscular Hemoglobin Concent 30.9L, Red Cell Distribution Width 18.3H, Platelet Count 525H, Neutrophils (%) (Auto) 84.5H, Lymphocytes (%) (Auto) 5.7L, Monocytes (%) (Auto) 8.0H, Eosinophils (%) (Auto) 0.7, Basophils (%) (Auto) 0.4, Neutrophils # (Auto) 9.5H, Lymphocytes # (Auto) 0.6L, Monocytes # (Auto) 0.9H, Eosinophils # (Auto) 0.1, Basophils # (Auto) 0.1, Nucleated Red Blood Cells % (auto) 0.0, Erythrocyte Sedimentation Rate 69H, Anion Gap 10, Glomerular Filtration Rate > 60.0, Lactic Acid Level 2.2*H, Calcium Level 8.6L, Aspartate Amino Transf (AST/SGOT) 11, Alanine Aminotransferase (ALT/SGPT) 12, Alkaline Phosphatase 136H, Total Bilirubin 0.5, Direct Bilirubin 0.2, Total Creatine Kinase 39, Creatine Kinase MB < 1.0, Creatine Kinase MB Relative Index 2.56, Troponin I < 0.02, C-Reactive Protein, Quantitative 1.42H, Total Protein 7.6, Albumin 2.6L, Albumin/Globulin Ratio 0.52L, Lipase 54L, Thyroid Stimulating Hormone (TSH) 1.020, Free Thyroxine 1.45 08/23/18 11:40: Prothrombin Time 13.7, Prothromb Time International Ratio 1.04, Activated Partial Thromboplast Time 28.2 CBC/BMP Laboratory Tests 08/23/18 11:11 Red Blood Count 3.98 L, Mean Corpuscular Volume 86.2, Mean Corpuscular Hemoglobin 26.6 L, Mean Corpuscular Hemoglobin Concent 30.9 L, Red Cell Distribution Width 18.3 H, Neutrophils (%) (Auto) 84.5 H, Lymphocytes (%) (Auto) 5.7 L, Monocytes (%) (Auto) 8.0 H, Eosinophils (%) (Auto) 0.7, Basophils (%) ( Auto) 0.4, Neutrophils # (Auto) 9.5 H, Lymphocytes # (Auto) 0.6 L, Monocytes # (Auto) 0.9 H, Eosinophils # (Auto) 0.1, Basophils # (Auto) 0.1 Microbiology Microbiology 08/23/18 Blood Culture, Received Pending 08/23/18 Blood Culture, Received Pending Problems (1) Vascular insufficiency of limb Status: Acute Problem Specific Plan: Consult Specialist (. Dr. Martin) Problem Text: Admit patient to PCU with monitoring specialist Continue cardiac monitoring IV fluids normal saline at 70 mL per hour Heparin drip has been started from ED as per Dr. Martin's recommendations Will keep patient nothing by mouth except meds Continue all home meds except diabetic meds Fingerstick blood sugar coverage with regular insulin every 6 hours A.m. level work has been ordered Bed rest Nothing by mouth except meds DVT prophylaxis not needed as patient is on heparin drip already Further, as per vascular surgery's recommendations (2) HTN (hypertension) Status: Chronic Problem Text: Stable Continue home meds (3) Type 2 diabetes mellitus Status: Chronic Problem Text: Fingerstick blood sugar every 6 hours with regular insulin coverage By mouth oral hypoglycemic agents (4) COPD (chronic obstructive pulmonary disease) Status: Chronic Problem Text: Under control (5) Tobacco abuse Status: Chronic Problem Text: Abstinent counseling done NicoDerm patch (6) Anemia Status: Chronic Problem Text: History of GI bleed in the past On anticoagulation H&H regularly , Transfuse as needed (7) Dyslipidemia Status: Chronic Problem Text: Continue Lipitor Plan / VTE VTE Prophylaxis Ordered?: Yes LALO CHACON MD Aug 23, 2018 14:01
[2018-08-23] MEDS ORDERED: NICOTINE 14 MG/24 HR TRANSDERMAL TD ONE (14:15)
[2018-08-23] MEDS ORDERED: ONDANSETRON 4MG/2ML VIAL (J2405) IV PRN (14:15)
[2018-08-23 14:48] VITALS: BP 124/58
[2018-08-23] MEDS: amLODIPine 5 MG TAB PO SCH (16:23)
[2018-08-23] MEDS: CLOPIDOGREL 75 MG TAB PO SCH (16:23)
[2018-08-23] MEDS: HumaLOG INSULIN (NovoLOG) PER UNIT SC SCH ×2 (17:26→20:47)
[2018-08-23] MEDS ORDERED: HumaLOG INSULIN (NovoLOG) PER UNIT SC SCH (18:00)
[2018-08-23] MEDS: PERCOCET 5MG/325MG TAB PO PRN (19:13)
--- NOTE | 2018-08-23 19:33 | ECGEPIP ---
[facility] - ED Test Date: 2018-08-23 Pat Name: SHRUTI TUCKER Department: Room: I4334-15 Gender: Female Ragman: : 1940 Requested By: Talia Russell Order Number: [id number] Reading MD: Talia Russell Measurements Intervals Fleming Rate: 104 P: 80 KS: 131 QRS: 46 QRSD: 87 T: 58 QT: 364 QTc: 480 Interpretive Statements SINUS TACHYCARDIA POSSIBLE LEFT ATRIAL ENLARGEMENT NONSPECIFIC ST & T-WAVE ABNORMALITY ABNORMAL RHYTHM ECG DELAYED R WAVE PROGRESSION CW 07/06/[address] T WAVE CHANGES Electronically Signed on 08-23-2018 19:32:59 EDT by Talia Russell
[2018-08-23 19:42] LABS: HEMATOCRIT 34.5 % (36.0-47.0); HEMOGLOBIN 10.6 g/dl (12.0-15.5); MEAN CORPUSCULAR HEMOGLOBIN 26.7 pg (27.0-33.0); MEAN CORPUSCULAR HGB CONC 30.7 g/dl (32.0-36.5); MEAN CORPUSCULAR VOLUME 86.9 fl (80.0-96.0); PLATELET COUNT, AUTOMATED 562 10^3/uL (150-450); RED BLOOD COUNT 3.97 10^6/uL (4.00-5.40); WHITE BLOOD COUNT 10.9 10^3/uL (4.0-10.0)
[2018-08-23 20:00] VITALS: BP 120/64
[2018-08-23] MEDS: ATORVASTATIN 20 MG TAB PO SCH (20:46)
[2018-08-23] MEDS: HEPARIN SOD (PORCINE) 5000 UNITS/ML VIAL IV PRN (20:53)
[2018-08-23 21:00] VITALS: BP 112/76
[2018-08-23 22:00] VITALS: BP 108/53
[2018-08-23 23:00] VITALS: BP 110/56
[2018-08-24] VITALS (18 sets, daily range): BP systolic 104–131; BP diastolic 52–62
[2018-08-24] MEDS: PERCOCET 5MG/325MG TAB PO PRN ×4 (01:20→20:51)
[2018-08-24 02:54] LABS: HEMATOCRIT 30.3 % (36.0-47.0); HEMOGLOBIN 9.4 g/dl (12.0-15.5); MEAN CORPUSCULAR HEMOGLOBIN 26.9 pg (27.0-33.0); MEAN CORPUSCULAR VOLUME 86.6 fl (80.0-96.0); PLATELET COUNT, AUTOMATED 523 10^3/uL (150-450); WHITE BLOOD COUNT 11.1 10^3/uL (4.0-10.0)
[2018-08-24 03:13] LABS: ALBUMIN 2.5 GM/DL (3.2-5.2); ALT/SGPT 12 U/L (12-78); BILIRUBIN,TOTAL 0.3 MG/DL (0.2-1.0); BLOOD UREA NITROGEN 23 MG/DL (7-18); CALCIUM LEVEL 8.3 MG/DL (8.8-10.2); CARBON DIOXIDE LEVEL 23 MEQ/L (21-32); CHLORIDE LEVEL 107 MEQ/L (98-107); CREATININE FOR GFR 0.88 MG/DL (0.55-1.30); GLOMERULAR FILTRATION RATE > 60.0 (>39); GLUCOSE, FASTING 108 MG/DL (70-100); POTASSIUM SERUM 3.6 MEQ/L (3.5-5.1); SODIUM LEVEL 141 MEQ/L (136-145); TOTAL PROTEIN 6.6 GM/DL (6.4-8.2)
[2018-08-24] MEDS: HumaLOG INSULIN (NovoLOG) PER UNIT SC SCH ×4 (08:25→20:51)
[2018-08-24] MEDS: CLOPIDOGREL 75 MG TAB PO SCH (08:25)
[2018-08-24] MEDS: amLODIPine 5 MG TAB PO SCH (08:25)
[2018-08-24] MEDS: PANTOPRAZOLE 40MG TAB (PROTONIX) PO SCH ×2 (08:25→20:50)
[2018-08-24] MEDS ORDERED: PANTOPRAZOLE 40MG TAB (PROTONIX) PO SCH (09:00)
--- NOTE | 2018-08-24 10:02 | IPNPDOC ---
Subjective Date Seen The patient was seen on 08/24/18. Subjective Chief Complaint/HPI Pain in her left leg General: Denies: ROS Unobtainable, Chills, Night Sweats, Fatigue, Malaise, Normal Appetite, Other Symptoms Constitutional: Denies: Chills, Fever, Malaise, Night Sweats, Weakness, Fa tigue, Weight Loss, Lethargy, Other Eyes: Denies: Pain, Vision change, Conjunctivae inflammation, Eyelid inflammation, Redness, Other ENT: Denies: Head Aches, Ear Pain, Dysphagia, Sinus Congestion, Post Nasal Drip, Sore Throat, Epistaxis, Other Symptoms Skin: Denies: Rash, Lesions, Jaundice, Bruising, Itching, Dry, Breakdown, Nail Changes, Other Pulmonary: Denies: Dyspnea, Cough, Pleuritic Chest Pain, Other Symptoms Cardiovascular: Denies: Chest Pain, Palpitations, Orthopnea, Paroxysmal Noc. Dyspnea, Edema, Lt Headedness, Other Symptoms Gastrointestinal: Denies: Nausea, Vomiting, Abdominal Pain, Diarrhea, Constipation, Melena, Hematochezia, Other Symptoms Genitourinary: Denies: Dysuria, Frequency, Incontinence, Hematuria, Retention, Other Symptoms Hematologic: Denies: Bruising, Bleeding Excessively, Petecchia, Purpura, Enlarged Lymph Nodes, Other Hematologic Endocrine: Denies: Polydipsia, Polyphagia, Polyuria, Heat Intolerance, Cold Intolerance, Other Endocrine Sx Musculoskeletal: Reports: Other Symptoms Neurological: Denies: Weakness, Numbness, Incoordination, Change in speech, Confusion, Seizures, Other Symptoms Psych: Denies: Mood Normal, Anxiety, Depression, Memory Issues, Thoughts of Self Harm, Anger, Thoughts of Harming Other, Other Psych Objective Physical Examination General Exam: Positive: Alert, Cooperative, No Acute Distress Eye Exam: Positive: PERRLA, Conjunctiva & lids normal ENT Exam: Positive: Atraumatic, Mucous membr. moist/pink Neck Exam: Positive: Supple Chest Exam: Positive: Clear to auscultation, Normal air movement Heart Exam: Positive: Rate Normal, Normal S1, Normal S2 Telemetry: Positive: No significant arrhythmia Abdomen Exam: Positive: Normal bowel sounds, Soft Extremity Exam: Positive: Other (. Left foot is cold on touch. There is no popliteal pulses to left popliteal artery) Skin Exam: Positive: Other skin issue (. As above) Neuro Exam: Negative: Normal Gait, Normal Speech, Strength at 5/5 X4 ext, Normal Tone, Sensation Intact, Cranial Nerves 3-12 NL, Reflexes 2+, Other Psych Exam: Negative: Mental status NL, Mood NL, Anxiety, Memory Intact, Oriented x 3, Other Assessment /Plan Problems (1) Vascular insufficiency of limb Status: Acute Problem Specific Plan: Consult Specialist (. Dr. Martin) Problem Text: Admit patient to PCU with spoon maker Continue cardiac monitoring IV fluids normal saline at 70 mL per hour Heparin drip has been started from ED as per Dr. Martin's recommendations Will keep patient nothing by mouth except meds Continue all home meds except diabetic meds Fingerstick blood sugar coverage with regular insulin every 6 hours Awaiting vascular surgery consult for further plan. Plans and management Continue heparin infusion as per orders. Patient is not nothing by mouth at the present time (2) HTN (hypertension) Status: Chronic Problem Text: Stable Continue home meds (3) Type 2 diabetes mellitus Status: Chronic Problem Text: Fingerstick blood sugar every 6 hours with regular insulin coverage By mouth oral hypoglycemic agents (4) COPD (chronic obstructive pulmonary disease) Status: Chronic Problem Text: Under control (5) Tobacco abuse Status: Chronic Problem Text: Abstinent counseling done NicoDerm patch (6) Anemia Status: Chronic Problem Text: History of GI bleed in the past On anticoagulation H&H regularly , Transfuse as needed (7) Dyslipidemia Status: Chronic Problem Text: Continue Lipitor Plan/VTE VTE Prophylaxis Ordered?: Yes VS, I&O, 24H, Fishbone Vital Signs/I&O Vital Signs Date Time Temp Pulse Resp B/P (MAP) Pulse Ox O2 Delivery O2 Flow Rate FiO2 08/24/18 09:00 86 18 110/56 (74) 08/24/18 08:18 99.2 08/24/18 08:00 98 08/23/18 14:30 Room Air I&O- Last 24 Hours up to 6 AM 08/24/18 06:00 Intake Total 724 ml Output Total 350 ml Balance 374 ml Laboratory Data 24H LABS Laboratory Tests 2 08/23/18 11:11: Immature Granulocyte % (Auto) 0.7, White Blood Count 11.2H, Red Blood Count 3.98L, Hemoglobin 10.6L, Hematocrit 34.3L, Mean Corpuscular Volume 86.2, Mean Corpuscular Hemoglobin 26.6L, Mean Corpuscular Hemoglobin Concent 30.9L, Red Cell Distribution Width 18.3H, Platelet Count 525H, Neutrophils (%) (Auto) 84.5H, Lymphocytes (%) (Auto) 5.7L, Monocytes (%) (Auto) 8.0H, Eosinophils (%) (Auto) 0.7, Basophils (%) (Auto) 0.4, Neutrophils # (Auto) 9.5H, Lymphocytes # (Auto) 0.6L, Monocytes # (Auto) 0.9H, Eosinophils # (Auto) 0.1, Basophils # (Auto) 0.1, Nucleated Red Blood Cells % (auto) 0.0, Erythrocyte Sedimentation Rate 69H, Anion Gap 10, Glomerular Filtration Rate > 60.0, Lactic Acid Level 2.2*H, Calcium Level 8.6L, Aspartate Amino Transf (AST/SGOT) 11, Alanine Aminotransferase (ALT/SGPT) 12, Alkaline Phosphatase 136H, Total Bilirubin 0.5, Direct Bilirubin 0.2, Total Creatine Kinase 39, Creatine Kinase MB < 1.0, Creatine Kinase MB Relative Index 2.56, Troponin I < 0.02, C-Reactive Protein, Quantitative 1.42H, Total Protein 7.6, Albumin 2.6L, Albumin/Globulin Ratio 0.52 L, Lipase 54L, Thyroid Stimulating Hormone (TSH) 1.020, Free Thyroxine 1.45 08/23/18 11:40: Prothrombin Time 13.7, Prothromb Time International Ratio 1.04, Activated Partial Thromboplast Time 28.2 08/23/18 16:08: Lactic Acid Followup at 4 Hours 1.2 08/23/18 16:52: Bedside Glucose (Misc Panel) 111H 08/23/18 19:30: Nucleated Red Blood Cells % (auto) 0.0, Activated Partial Thromboplast Time 45.5H 08/23/18 20:37: Bedside Glucose (Misc Panel) 203H 08/24/18 02:42: Nucleated Red Blood Cells % (auto) 0.0, Activated Partial Thromboplast Time 129.3*H, Anion Gap 11, Glomerular Filtration Rate > 60.0, Blood Urea Nitrogen 23H, Creatinine 0.88, Sodium Level 141, Potassium Level 3.6, Chloride Level 107, Carbon Dioxide Level 23, Calcium Level 8.3L, Aspartate Amino Transf (AST/SGOT) 11, Alanine Aminotransferase (ALT/SGPT) 12, Alkaline Phosphatase 117, Total Bilirubin 0.3, Total Protein 6.6, Albumin 2.5L, Albumin/Globulin Ratio 0.61L CBC/BMP Laboratory Tests 08/23/18 11:11 Red Blood Count 3.98 L, Mean Corpuscular Volume 86.2, Mean Corpuscular Hemoglobin 26.6 L, Mean Corpuscular Hemoglobin Concent 30.9 L, Red Cell Distribution Width 18.3 H, Neutrophils (%) (Auto) 84.5 H, Lymphocytes (%) (Auto) 5.7 L, Monocytes (%) (Auto) 8.0 H, Eosinophils (%) (Auto) 0.7, Basophils (%) (Auto) 0.4, Neutrophils # (Auto) 9.5 H, Lymphocytes # (Auto) 0.6 L, Monocytes # (Auto) 0.9 H, Eosinophils # (Auto) 0.1, Basophils # (Auto) 0.1 08/23/18 19:30 Red Blood Count 3.97 L, Mean Corpuscular Volume 86.9, Mean Corpuscular Hemoglobin 26.7 L, Mean Corpuscular Hemoglobin Concent 30.7 L, Red Cell Distribution Width 18.4 H 08/24/18 02:42 Red Blood Count 3.50 L, Mean Corpuscular Volume 86.6, Mean Corpuscular Hemoglobin 26.9 L, Mean Corpuscular Hemoglobin Concent 31.0 L, Red Cell Distribution Width 18.4 H, Calcium Level 8.3 L, Aspartate Amino Transf (AST/SGOT) 11, Alanine Aminotransferase (ALT/SGPT) 12, Alkaline Phosphatase 117, Total Bilirubin 0.3, Total Protein 6.6, Albumin 2.5 L Microbiology Microbiology 08/23/18 Blood Culture, Received Pending 08/23/18 Blood Culture, Received Pending LALO CHACON MD Aug 24, 2018 10:02
--- NOTE | 2018-08-24 13:14 | CR.PDOC ---
General Date of Consultation: Aug 24, [address] Martin. 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 Revision of Ax Bifem graft 08/16/[address] Martin discharged 08/21/18. Patient presented in ER 08/23/18 with chief complaints of cold left foot admission was arranged, vascular surgery consulted. The pt states she is still having pain in the left great toe. Denies any fevers, chills, weakness, fatigue, Headache, Chest Pain, Shortness of breath, cough, palpitations, abdominal pain, N/V/D or changes in bowel or bladder habits. PAST MEDICAL HISTORY: Hypertension. Hyperlipidemia. Type 2 diabetes. COPD. ERCP June 2017 cholangitis/biliary stent. H/O upper and lower GI bleed. EGD on 04/22/2017 that showed multiple (more than 10) small angioectasia of the duodenum treated with argon-beam coagulation. Recent admission for UGIB, EGD 07/10/18 Three non-bleeding angioectasias in the stomach. Treated with argon beam coagulation. A few non-bleeding angioectasias in the duodenum. Treated with argon beam coagulation. Patent biliary stent. chronic anemia history of vascular disease status post bilateral common iliac artery and angioplasty and stenting. H/O DVT of the left lower extremity and was anticoagulated on warfarin until her admission for GI Bleeding March 2017. PAST SURGICAL HISTORY: Tonsillectomy. Bilateral common iliac artery angioplasty stenting. EGDs and colonoscopies. 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 Treated with argon beam coagulation. A few non-bleeding angioectasias in the duodenum. Treated with argon beam coagulation. Patent biliary stent. ERCP as above. Right-sided axillofemoral and [id number] fem/fem bypass undetermined date. FAMILY HISTORY: Father with a history of coronary artery disease. Mother with a history of lung cancer. He has a sister with a history of lung cancer. Brother had amyotrophic lateral sclerosis (ALS). SOCHX: Resides in: [facility] Marital Status: Tobacco use: 1-2 ppd ETOH: denies Illicit Drugs: Denies ROS: As noted in HPI, otherwise 11pt ROS of systems reviewed and unremarkable. PE: GEN: 78yoF, appears stated age. No acute distress. Alert and oriented x 3. HEENT: Normocephalic, atraumatic. Sclera are nonicteric. Conjunctiva without injection. Moist mucous membranes. CHEST: Regular rate and rhythm, +S1, +S2 LUNGS: Clear to auscultation bilaterally. No wheezes, rales, or rhonchi. Breathing appears symmetric and easy. ABD: Round, soft, non-tender, non-distended. +Bowel sounds throughout. No rebound or guarding. EXT: No lower extremity edema appreciated. toes left foot are discolored, cool to touch. Left DP unable to obtain with doppler, PT faint monophasic. Rt foot with palpable DP and biphasic PT with doppler. SKIN: No rashes. NEURO: Alert and oriented x 3. Cranial nerves III-XII are intact. No focal deficits appreciated. A&P: H/o Right-sided axillofemoral and [id number] fem/fem bypass. S/P revision Rt Ax Bifem bypass as per Dr Martin 08/16/18. The pt is reviewed and examined as per Dr Martin. Plan for possible revision of Ax Bifem graft. Heparin IV. monitor. H/O upper and lower GI bleed. EGD on 04/22/2017 that showed multiple (more than 10) small angioectasia of the duodenum treated with argon-beam coagulation. Recent admission for UGIB, EGD 07/10 Three non-bleeding angioectasias in the stomach. Treated with argon beam coagulation. A few non-bleeding angioectasias in the duodenum. Treated with argon beam coagulation. Patent biliary stent. Follows with Dr Santoyo. Continue PPI BID Continue Carafate chronic anemia. Monitor CBC. Hgb 9.4 Monitor for bleeding. Tobacco use. Reinforced cessation. Vital Signs/I&O Vital Signs Date Time Temp Pulse Resp B/P (MAP) Pulse Ox O2 Delivery O2 Flow Rate FiO2 08/24/18 12:30 18 98 08/24/18 12:02 96 131/62 (85) 08/24/18 11:54 98.2 08/23/18 14:30 Room Air I&O- Last 24 Hours up to 6 AM 08/24/18 06:00 Intake Total 724 ml Output Total 350 ml Balance 374 ml Laboratory Data Labs 24H Laboratory Tests 2 08/23/18 16:08: Lactic Acid Followup at 4 Hours 1.2 08/23/18 16:52: Bedside Glucose (Misc Panel) 111H 08/23/18 19:30: Nucleated Red Blood Cells % (auto) 0.0, Activated Partial Thromboplast Time 45.5H 08/23/18 20:37: Bedside Glucose (Misc Panel) 203H 08/24/18 02:42: Nucleated Red Blood Cells % (auto) 0.0, Activated Partial Thromboplast Time 129.3*H, Anion Gap 11, Glomerular Filtration Rate > 60.0, Blood Urea Nitrogen 23H, Creatinine 0.88, Sodium Level 141, Potassium Level 3.6, Chloride Level 107, Carbon Dioxide Level 23, Calcium Level 8.3L, Aspartate Amino Transf (AST/SGOT) 11, Alanine Aminotransferase (ALT/SGPT) 12, Alkaline Phosphatase 117, Total Bilirubin 0.3, Total Protein 6.6, Albumin 2.5L, Albumin/Globulin Ratio 0.61L 08/24/18 11:09: Activated Partial Thromboplast Time 75.4H 08/24/18 11:53: Bedside Glucose (Misc Panel) 276H CBC/BMP Laboratory Tests 08/23/18 19:30 Red Blood Count 3.97 L, Mean Corpuscular Volume 86.9, Mean Corpuscular Hemoglobin 26.7 L, Mean Corpuscular Hemoglobin Concent 30.7 L, Red Cell Distribution Width 18.4 H 08/24/18 02:42 Red Blood Count 3.50 L, Mean Corpuscular Volume 86.6, Mean Corpuscular Hemoglobin 26.9 L, Mean Corpuscular Hemoglobin Concent 31.0 L, Red Cell Dist ribution Width 18.4 H, Calcium Level 8.3 L, Aspartate Amino Transf (AST/SGOT) 11, Alanine Aminotransferase (ALT/SGPT) 12, Alkaline Phosphatase 117, Total Bilirubin 0.3, Total Protein 6.6, Albumin 2.5 L Microbiology Microbiology 08/23/18 Blood Culture - Preliminary, Resulted No growth after 24 hours . All specim... 08/23/18 Blood Culture - Preliminary, Resulted No growth after 24 hours . All specim... Allergies Coded Allergies: No Known Allergies (Verified , 02/24/06) Home Medications Scheduled Amlodipine Besylate (Amlodipine Besylate) 5 Mg Tablet, 5 MG PO DAILY, (Reported) TAKES AT NOON Atorvastatin Calcium (Atorvastatin Calcium) 40 Mg Tab, 40 MG PO QHS, (Reported) Clopidogrel Bisulfate (Clopidogrel) 75 Mg Tablet, 75 MG PO DAILY, (Reported) TAKES AT NOON Ferrous Sulfate (Ferrous Sulfate) 325 Mg Tablet, 325 MG PO BID, (Reported) Glimepiride (Glimepiride) 2 Mg Tablet, 2 MG PO QHS, (Reported) Metformin HCl (Metformin HCl ER) 500 Mg Tab.er.24h, 1,000 MG PO BID, (Reported) Pantoprazole Sodium (Protonix) 40 Mg Tab, 40 MG PO BID, (Reported) Sitagliptin (Januvia) 50 Mg Tab, 50 MG PO DAILY, (Reported) Tiotropium [place] (Spiriva) 18 Mcg Cap, 1 CAP INH DAILY, (Reported) Sunshine Allison Aug 24, 2018 13:14
[2018-08-24] MEDS: HEPARIN DRIP 25,000 UNITS in APPROPRIATE DILUENT 1 EA IV SCH (13:32)
[2018-08-24] MEDS: SUCRALFATE 1 GM TAB PO SCH ×2 (16:48→20:50)
[2018-08-24] MEDS: ATORVASTATIN 20 MG TAB PO SCH (20:50)
[2018-08-25] VITALS: BP 126/60
[2018-08-25] MEDS: PERCOCET 5MG/325MG TAB PO PRN ×5 (01:19→22:00)
[2018-08-25 04:00] VITALS: BP 131/74
[2018-08-25 05:07] LABS: HEMATOCRIT 28.4 % (36.0-47.0); HEMOGLOBIN 8.9 g/dl (12.0-15.5); MEAN CORPUSCULAR HEMOGLOBIN 27.1 pg (27.0-33.0); MEAN CORPUSCULAR HGB CONC 31.3 g/dl (32.0-36.5); MEAN CORPUSCULAR VOLUME 86.3 fl (80.0-96.0); PLATELET COUNT, AUTOMATED 504 10^3/uL (150-450); RED BLOOD COUNT 3.29 10^6/uL (4.00-5.40); WHITE BLOOD COUNT 9.4 10^3/uL (4.0-10.0)
[2018-08-25 05:29] LABS: BLOOD UREA NITROGEN 15 MG/DL (7-18); CALCIUM LEVEL 7.7 MG/DL (8.8-10.2); CARBON DIOXIDE LEVEL 25 MEQ/L (21-32); CHLORIDE LEVEL 106 MEQ/L (98-107); CREATININE FOR GFR 0.69 MG/DL (0.55-1.30); GLOMERULAR FILTRATION RATE > 60.0 (>39); GLUCOSE, FASTING 155 MG/DL (70-100); POTASSIUM SERUM 3.7 MEQ/L (3.5-5.1); SODIUM LEVEL 138 MEQ/L (136-145)
[2018-08-25] MEDS: HEPARIN SOD (PORCINE) 5000 UNITS/ML VIAL IV PRN (06:13)
[2018-08-25 08:00] VITALS: BP 120/58
[2018-08-25] MEDS: HumaLOG INSULIN (NovoLOG) PER UNIT SC SCH ×4 (08:50→21:00)
[2018-08-25] MEDS: PANTOPRAZOLE 40MG TAB (PROTONIX) PO SCH ×2 (08:50→20:08)
[2018-08-25] MEDS: CLOPIDOGREL 75 MG TAB PO SCH (08:51)
[2018-08-25] MEDS: amLODIPine 5 MG TAB PO SCH (08:51)
[2018-08-25] MEDS: SUCRALFATE 1 GM TAB PO SCH ×4 (08:51→20:08)
--- NOTE | 2018-08-25 10:37 | IPNPDOC ---
Date Seen The patient was seen on 08/25/18. Progress Note Vascular Surgery. Dr Martin. 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 Revision of Ax Bifem graft 08/16/[address] Martin discharged 08/21/18. Patient presented in ER 08/23/18 with chief complaints of cold left foot admission was arranged, vascular surgery consulted. The pt states she is still having pain in the left great toe, states this is unchanged today. Denies any fevers, chills, weakness, fatigue, Headache, Chest Pain, Shortness of breath, cough, palpitations, abdominal pain, N/V/D or changes in bowel or bladder habits. PAST MEDICAL HISTORY: Hypertension. Hyperlipidemia. Type 2 diabetes. COPD. ERCP June 2017 cholangitis/biliary stent. H/O upper and lower GI bleed. EGD on 04/22/2017 that showed multiple (more than 10) small angioectasia of the duodenum treated with argon-beam coagulation. Recent admission for UGIB, EGD 07/10/18 Three non-bleeding angioectasias in the stomach. Treated with argon beam coagulation. A few non-bleeding angioectasias in the duodenum. Treated with argon beam coagulation. Patent biliary stent. chronic anemia history of vascular disease status post bilateral common iliac artery and angioplasty and stenting. H/O DVT of the left lower extremity and was anticoagulated on warfarin until her admission for GI Bleeding March 2017. PAST SURGICAL HISTORY: Tonsillectomy. Bilateral common iliac artery angioplasty stenting. EGDs and colonoscopies. 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 Treated with argon beam coagulation. A few non-bleeding angioectasias in the duodenum. Treated with argon beam coagulation. Patent biliary stent. ERCP as above. Right-sided axillofemoral and [id number] fem/fem bypass undetermined date. PE: GEN: 78yoF, appears stated age. No acute distress. Alert and oriented x 3. HEENT: Normocephalic, atraumatic. Sclera are nonicteric. Conjunctiva without injection. Moist mucous membranes. CHEST: Regular rate and rhythm, +S1, +S2 LUNGS: Clear to auscultation bilaterally. No wheezes, rales, or rhonchi. Breathing appears symmetric and easy. ABD: Round, soft, non-tender, non-distended. +Bowel sounds throughout. No rebound or guarding. EXT: No lower extremity edema appreciated. Toes left foot are discolored, cool to touch. Left DP/PT unable to obtain with doppler. Rt foot with palpable DP and biphasic PT with doppler. SKIN: No rashes. NEURO: Alert and oriented x 3. Cranial nerves III-XII are intact. No focal deficits appreciated. A&P: H/o Right-sided axillofemoral and [id number] fem/fem bypass. S/P revision Rt Ax Bifem bypass as per Dr Martin 08/16/18. The pt is well known to Dr Martin. Continue Heparin IV. Tentative plan for Left Ax-Fem bypass 08/26 or 08/27/18. monitor. H/O upper and lower GI bleed. EGD on 04/22/2017 that showed multiple (more than 10) small angioectasia of the duodenum treated with argon-beam coagulation. Recent admission for UGIB, EGD 07/10 Three non-bleeding angioectasias in the stomach. Treated with argon beam coagulation. A few non-bleeding angioectasias in the duodenum. Treated with argon beam coagulation. Patent biliary stent. Follows with Dr Santoyo. Continue PPI BID Continue Carafate chronic anemia. Monitor CBC. Hgb 8.9 Monitor for bleeding. Tobacco use. Reinforced cessation. VS, I&O, 24H, Fishbone Vital Signs/I&O Vital Signs Date Time Temp Pulse Resp B/P (MAP) Pulse Ox O2 Delivery O2 Flow Rate FiO2 08/25/18 08:51 86 120/58 08/25/18 06:18 18 08/25/18 04:00 97.6 93 08/23/18 14:30 Room Air I&O- Last 24 Hours up to 6 AM 08/25/18 06:00 Intake Total 1160 ml Output Total 1000 ml Balance 160 ml Laboratory Data 24H LABS Laboratory Tests 2 08/24/18 11:09: Activated Partial Thromboplast Time 75.4H 08/24/18 11:53: Bedside Glucose (Misc Panel) 276H 08/24/18 16:21: Bedside Glucose (Misc Panel) 152H 08/24/18 17:14: Activated Partial Thromboplast Time 71.6H 08/24/18 20:49: Bedside Glucose (Misc Panel) 202H 08/25/18 04:42: Nucleated Red Blood Cells % (auto) 0.0, Activated Partial Thromboplast Time 59.9H, Anion Gap 7L, Glomerular Filtration Rate > 60.0, Blood Urea Nitrogen 15, Creatinine 0.69, Sodium Level 138, Potassium Level 3.7, Chloride Level 106, Carbon Dioxide Level 25, Calcium Level 7.7L CBC/BMP Laboratory Tests 08/25/18 04:42 Red Blood Count 3.29 L, Mean Corpuscular Volume 86.3, Mean Corpuscular H emoglobin 27.1, Mean Corpuscular Hemoglobin Concent 31.3 L, Red Cell Distribution Width 18.2 H, Calcium Level 7.7 L Microbiology Microbiology 08/23/18 Blood Culture - Preliminary, Resulted No growth after 24 hours . All specim... 08/23/18 Blood Culture - Preliminary, Resulted No growth after 24 hours . All specim... Sunshine Allison Aug 25, 2018 10:37
[2018-08-25 12:00] VITALS: BP 138/63
[2018-08-25] MEDS: HEPARIN DRIP 25,000 UNITS in APPROPRIATE DILUENT 1 EA IV SCH (13:22)
[2018-08-25] MEDS ORDERED: SLF 3 ML SYR IV PRN (14:30)
[2018-08-25] MEDS ORDERED: LIDOCAINE 1% MDV 20ML VIAL As Ordered ONE (14:42)
[2018-08-25 16:00] VITALS: BP 135/62
--- NOTE | 2018-08-25 16:40 | IPNPDOC ---
Subjective Date Seen The patient was seen on 08/25/18. Subjective Chief Complaint/HPI She does not have complaints except for leg weakness and L cold foot with R big toe pain. Denies numbness or pain above the foot. Denies a fever, chills, nausea, vomiting, or diarrhea. Constitutional: Denies: Chills, Fever, Malaise, Night Sweats, Weakness, Fatigue, Weight Loss, Lethargy, Other Eyes: Denies: Pain, Vision change, Conjunctivae inflammation, Eyelid inflammation, Redness, Other ENT: Denies: Head Aches, Ear Pain, Dysphagia, Sinus Congestion, Post Nasal Drip, Sore Throat, Epistaxis, Other Symptoms Skin: Denies: Rash, Lesions, Jaundice, Bruising, Itching, Dry, Breakdown, Nail Changes, Other Pulmonary: Denies: Dyspnea, Cough, Pleuritic Chest Pain, Other Symptoms Cardiovascular: Denies: Chest Pain, Palpitations, Orthopnea, Paroxysmal Noc. Dyspnea, Edema, Lt Headedness, Other Symptoms Gastrointestinal: Denies: Nausea, Vomiting, Abdominal Pain, Diarrhea, Constipation, Melena, Hematochezia, Other Symptoms Genitourinary: Denies: Dysuria, Frequency, Incontinence, Hematuria, Retention, Other Symptoms Hematologic: Denies: Bruising, Bleeding Excessively, Petecchia, Purpura, Enlarged Lymph Nodes, Other Hematologic Endocrine: Denies: Polydipsia, Polyphagia, Polyuria, Heat Intolerance, Cold Intolerance, Other Endocrine Sx Musculoskeletal: Reports: Foot Pain Neurological: Denies: Weakness, Numbness, Incoordination, Change in speech, Confusion, Seizures, Other Symptoms Psych: Denies: Mood Normal, Anxiety, Depression, Memory Issues, Thoughts of Self Harm, Anger, Thoughts of Harming Other, Other Psych Objective Physical Examination General Exam: Positive: Alert, Cooperative, No Acute Distress Eye Exam: Positive: PERRLA, Conjunctiva & lids normal ENT Exam: Positive: Atraumatic, Mucous membr. moist/pink Neck Exam: Positive: Supple Chest Exam: Positive: Clear to auscultation, Normal air movement Heart Exam: Positive: Rate Normal, Normal S1, Normal S2 Telemetry: Positive: No significant arrhythmia Abdomen Exam: Positive: Normal bowel sounds, Soft Extremity Exam: Positive: Other (. Left foot is cold on touch. There is no popliteal pulses to left popliteal artery) Skin Exam: Positive: Other skin issue (. As above) Neuro Exam: Negative: Normal Gait, Normal Speech, Strength at 5/5 X4 ext, Normal Tone, Sensation Intact, Cranial Nerves 3-12 NL, Reflexes 2+, Other Psych Exam: Negative: Mental status NL, Mood NL, Anxiety, Memory Intact, Oriented x 3, Other Assessment /Plan Problems (1) Vascular insufficiency of limb Status: Acute Problem Specific Plan: Consult Specialist (. Dr. Martin) Problem Text: Continue cardiac monitoring and heparin gtt. Dr. Martin following the patient. Awaiting vascular surgery consult for further plan. Plans and management Continue heparin infusion as per orders. (2) HTN (hypertension) Status: Chronic Problem Text: Stable Continue home meds (3) Type 2 diabetes mellitus Status: Chronic Problem Text: Fingerstick blood sugar every 6 hours with regular insulin coverage By mouth oral hypoglycemic agents (4) COPD (chronic obstructive pulmonary disease) Status: Chronic Problem Text: Under control (5) Tobacco abuse Status: Chronic Problem Text: Abstinent counseling done NicoDerm patch (6) Anemia Status: Chronic Problem Text: History of GI bleed in the past On anticoagulation H&H regularly , Transfuse as needed (7) Dyslipidemia Status: Chronic Problem Text: Continue Lipitor Plan/VTE VTE Prophylaxis Ordered?: Yes VS, I&O, 24H, Fishbone Vital Signs/I&O Vital Signs Date Time Temp Pulse Resp B/P (MAP) Pulse Ox O2 Delivery O2 Flow Rate FiO2 08/25/18 12:16 19 08/25/18 12:00 99.1 92 138/63 (88) 98 08/23/18 14:30 Room Air I&O- Last 24 Hours up to 6 AM 08/25/18 06:00 Intake Total 1160 ml Output Total 1000 ml Balance 160 ml Laboratory Data 24H LABS Laboratory Tests 2 08/24/18 17:14: Activated Partial Thromboplast Time 71.6H 08/24/18 20:49: Bedside Glucose (Misc Panel) 202H 08/25/18 04:42: Activated Partial Thromboplast Time 59.9H, Nucleated Red Blood Cells % (auto) 0.0, Anion Gap 7L, Glomerular Filtration Rate > 60.0, Blood Urea Nitrogen 15, Creatinine 0.69, Sodium Level 138, Potassium Level 3.7, Chloride Level 106, Carbon Dioxide Level 25, Calcium Level 7.7L 08/25/18 11:54: Bedside Glucose (Misc Panel) 207H 08/25/18 11:57: Activated Partial Thromboplast Time 92.5H CBC/BMP Laboratory Tests 08/25/18 04:42 Red Blood Count 3.29 L, Mean Corpuscular Volume 86.3, Mean Corpuscular Hemoglobin 27.1, Mean Corpuscular Hemoglobin Concent 31.3 L, Red Cell Distribution Width 18.2 H, Calcium Level 7.7 L Microbiology Microbiology 08/23/18 Blood Culture - Preliminary, Resulted No Growth after 48 hours. All Specime... 08/23/18 Blood Culture - Preliminary, Resulted No Growth after 48 hours. All Specime... RYAN MOCTEZUMA MD Aug 25, 2018 16:40
[2018-08-25] MEDS: SODIUM CHLORIDE 0.9% INJ 10 ML SYR IV SCH (17:22)
--- NOTE | 2018-08-25 18:20 | REP ---
Procedure: PICC line insertion with Ángela The procedure was performed under the direct supervision of Dr. Omalley. The risks and benefits of the procedure were explained to the patient and informed consent was obtained. The in right brachial vein was localized using ultrasound guidance. The skin was prepped and draped in a sterile fashion. 2% lidocaine was used as a local anesthetic. Using ultrasound guidance the brachial vein was cannulated and a 0.018 guidewire was inserted and advanced to the SVC using fluoroscopic guidance. The needle was removed and a 5.5 [place]i dilator and peel-away sheath was inserted over the guide wire. A 5.5 [place]i dual lumen catheter was cut to length of 40 cm. The dilator was removed and the catheter was inserted over the guide wire with the tip ending in the SVC. The peel-away sheath was removed and the catheter was flushed with heparinized saline as per Hospital protocol. The catheter was affixed to the skin and a sterile dressing was applied. The patient tolerated the procedure well and there were no immediate complications. 0.2 minutes of fluoro time was utilized for this procedure. Reviewed by CHASE Jordan 08/25/2018 04:17 P Electronically Signed by Alaln Omalley MD 08/25/2018 06:11 P
[2018-08-25 20:00] VITALS: BP 131/59
[2018-08-25] MEDS: ATORVASTATIN 20 MG TAB PO SCH (20:08)
[2018-08-25] MEDS: MORPHINE 4 MG/ML 1ML VIAL/SYRINGE (J2270) IV PRN (20:12)
[2018-08-25] MEDS: SLF 3 ML SYR IV SCH (21:36)
[2018-08-26] VITALS: BP 137/61
[2018-08-26] MEDS ORDERED: MORPHINE 4 MG/ML 1ML VIAL/SYRINGE (J2270) IV ONE (01:30)
[2018-08-26] MEDS: PERCOCET 5MG/325MG TAB PO PRN ×4 (02:31→19:29)
[2018-08-26 04:00] VITALS: BP 109/51
[2018-08-26] MEDS: SODIUM CHLORIDE 0.9% INJ 10 ML SYR IV SCH ×2 (06:16→17:26)
[2018-08-26] MEDS: SLF 3 ML SYR IV SCH ×2 (06:17→12:08)
[2018-08-26 06:47] LABS: HEMATOCRIT 26.7 % (36.0-47.0); HEMOGLOBIN 8.2 g/dl (12.0-15.5); MEAN CORPUSCULAR HEMOGLOBIN 26.9 pg (27.0-33.0); MEAN CORPUSCULAR HGB CONC 30.7 g/dl (32.0-36.5); MEAN CORPUSCULAR VOLUME 87.5 fl (80.0-96.0); PLATELET COUNT, AUTOMATED 503 10^3/uL (150-450); RED BLOOD COUNT 3.05 10^6/uL (4.00-5.40)
[2018-08-26 07:10] LABS: ALBUMIN 2.2 GM/DL (3.2-5.2); ALT/SGPT 12 U/L (12-78); BILIRUBIN,TOTAL 0.2 MG/DL (0.2-1.0); BLOOD UREA NITROGEN 13 MG/DL (7-18); CALCIUM LEVEL 7.6 MG/DL (8.8-10.2); CARBON DIOXIDE LEVEL 27 MEQ/L (21-32); CHLORIDE LEVEL 107 MEQ/L (98-107); CREATININE FOR GFR 0.64 MG/DL (0.55-1.30); GLOMERULAR FILTRATION RATE > 60.0 (>39); GLUCOSE, FASTING 149 MG/DL (70-100); POTASSIUM SERUM 3.6 MEQ/L (3.5-5.1); SODIUM LEVEL 141 MEQ/L (136-145)
[2018-08-26 07:52] VITALS: BP 109/61
[2018-08-26] MEDS: CLOPIDOGREL 75 MG TAB PO SCH (08:18)
[2018-08-26] MEDS: SUCRALFATE 1 GM TAB PO SCH ×4 (08:18→20:06)
[2018-08-26] MEDS: amLODIPine 5 MG TAB PO SCH (08:18)
[2018-08-26] MEDS: PANTOPRAZOLE 40MG TAB (PROTONIX) PO SCH ×2 (08:18→20:06)
[2018-08-26] MEDS: HumaLOG INSULIN (NovoLOG) PER UNIT SC SCH ×4 (08:19→21:00)
--- NOTE | 2018-08-26 10:33 | IPNPDOC ---
Date Seen The patient was seen on 08/26/18. Progress Note Vascular Surgery. Dr Martin. 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 Revision of Ax Bifem graft 08/16/[address] Martin discharged 08/21/18. Patient presented in ER 08/23/18 with chief complaints of cold left foot admission was arranged, vascular surgery consulted. The pt states she is still having pain in the left great toe, states this is overall unchanged today. Denies any fevers, chills, weakness, fatigue, Headache, Chest Pain, Shortness of breath, cough, palpitations, abdominal pain, N/V/D or changes in bowel or bladder habits. PAST MEDICAL HISTORY: Hypertension. Hyperlipidemia. Type 2 diabetes. COPD. ERCP June 2017 cholangitis/biliary stent. H/O upper and lower GI bleed. EGD on 04/22/2017 that showed multiple (more than 10) small angioectasia of the duodenum treated with argon-beam coagulation. Recent admission for UGIB, EGD 07/10/18 Three non-bleeding angioectasias in the stomach. Treated with argon beam coagulation. A few non-bleeding angioectasias in the duodenum. Treated with argon beam coagulation. Patent biliary stent. chronic anemia history of vascular disease status post bilateral common iliac artery and angioplasty and stenting. H/O DVT of the left lower extremity and was anticoagulated on warfarin until her admission for GI Bleeding March 2017. PAST SURGICAL HISTORY: Tonsillectomy. Bilateral common iliac artery angioplasty stenting. EGDs and colonoscopies. 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 Treated with argon beam coagulation. A few non-bleeding angioectasias in the duodenum. Treated with argon beam coagulation. Patent biliary stent. ERCP as above. Right-sided axillofemoral and [id number] fem/fem bypass undetermined date. PE: GEN: [id number], appears stated age. No acute distress. Alert and oriented x 3. HEENT: Normocephalic, atraumatic. Sclera are nonicteric. Conjunctiva without injection. Moist mucous membranes. CHEST: Regular rate and rhythm, +S1, +S2 LUNGS: Clear to auscultation bilaterally. No wheezes, rales, or rhonchi. Breathing appears symmetric and easy. ABD: Round, soft, non-tender, non-distended. +Bowel sounds throughout. No rebound or guarding. EXT: No lower extremity edema appreciated. Toes left foot are discolored, warmer to touch this am. Left DP/PT unable to obtain with doppler. Rt foot with palpable DP and biphasic PT with doppler. SKIN: No rashes. NEURO: Alert and oriented x 3. Cranial nerves III-XII are intact. No focal deficits appreciated. A&P: H/o Right-sided axillofemoral and [id number] fem/fem bypass. S/P revision Rt Ax Bifem bypass as per Dr Martin 08/16/18. The pt is well known to Dr Martin. Continue Heparin IV. Tentative plan for Left Ax-Fem bypass 08/27/18. monitor. H/O upper and lower GI bleed. EGD on 04/22/2017 that showed multiple (more than 10) small angioectasia of the duodenum treated with argon-beam coagulation. Recent admission for UGIB, EGD 07/10 Three non-bleeding angioectasias in the stomach. Treated with argon beam coagulation. A few non-bleeding angioectasias in the duodenum. Treated with argon beam coagulation. Patent biliary stent. Follows with Dr Santoyo. Continue PPI BID Continue Carafate AC/HS. chronic anemia. Monitor CBC. Hgb 8.2 Add back Fe supplement BID. Chk FOB. Monitor for bleeding. Tobacco use. Reinforced cessation. VS, I&O, 24H, Fishbone Vital Signs/I&O Vital Signs Date Time Temp Pulse Resp B/P (MAP) Pulse Ox O2 Delivery O2 Flow Rate FiO2 08/26/18 08:48 18 08/26/18 08:18 93 109/61 08/26/18 07:52 98.5 98 08/23/18 14:30 Room Air I&O- Last 24 Hours up to 6 AM 08/26/18 06:00 Intake Total 1158 ml Output Total 800 ml Balance 358 ml Laboratory Data 24H LABS Laboratory Tests 2 08/25/18 11:54: Bedside Glucose (Misc Panel) 207H 08/25/18 11:57: Activated Partial Thromboplast Time 92.5H 08/25/18 17:14: Bedside Glucose (Misc Panel) 211H 08/25/18 17:58: Activated Partial Thromboplast Time 73.4H 08/25/18 20:14: Bedside Glucose (Misc Panel) 149H 08/26/18 06:15: Nucleated Red Blood Cells % (auto) 0.0, Activated Partial Thromboplast Time > 240.0*H, Anion Gap 7L, Glomerular Filtration Rate > 60.0, Blood Urea Nitrogen 13, Creatinine 0.64, Sodium Level 141, Potassium Level 3.6, Chloride Level 107, Carbon Dioxide Level 27, Calcium Level 7.6L, Aspartate Amino Transf (AST/SGOT) 9, Alanine Aminotransferase (ALT/SGPT) 12, Alkaline Phosphatase 105, Total Bilirubin 0.2, Total Protein 6.0L, Albumin 2.2L, Albumin/Globulin Ratio 0.58L 08/26/18 08:14: Activated Partial Thromboplast Time 106.4H CBC/BMP Laboratory Tests 08/26/18 06:15 Red Blood Count 3.05 L, Mean Corpuscular Volume 87.5, Mean Corpuscular Hemoglobin 26.9 L, Mean Corpuscular Hemoglobin Concent 30.7 L, Red Cell Dist ribution Width 18.1 H, Calcium Level 7.6 L, Aspartate Amino Transf (AST/SGOT) 9, Alanine Aminotransferase (ALT/SGPT) 12, Alkaline Phosphatase 105, Total Bilirubin 0.2, Total Protein 6.0 L, Albumin 2.2 L Microbiology Microbiology 08/23/18 Blood Culture - Preliminary, Resulted No Growth after 48 hours. All Specime... 08/23/18 Blood Culture - Preliminary, Resulted No Growth after 48 hours. All Specime... Sunshine Allison Aug 26, 2018 10:33
[2018-08-26] MEDS: FERROUS SULFATE 325MG TAB PO SCH ×2 (12:08→20:05)
[2018-08-26 12:36] VITALS: BP 132/60
[2018-08-26] MEDS: HEPARIN DRIP 25,000 UNITS in APPROPRIATE DILUENT 1 EA IV SCH (13:07)
[2018-08-26 16:08] VITALS: BP 125/58
[2018-08-26] MEDS: MORPHINE 4 MG/ML 1ML VIAL/SYRINGE (J2270) IV PRN ×2 (16:12→22:32)
[2018-08-26 20:00] VITALS: BP 132/63
[2018-08-26] MEDS: ATORVASTATIN 20 MG TAB PO SCH (20:05)
[2018-08-26] MEDS: SODIUM CHLORIDE 0.9% INJ 10 ML SYR IV PRN (21:30)
--- NOTE | 2018-08-26 23:21 | IPNPDOC ---
Subjective Date Seen The patient was seen on 08/26/18. Subjective Chief Complaint/HPI The patient still has L big toe throbbing pain. No other complaints. No pain. No fevers, chills, nausea, or vomiting. General: Denies: ROS Unobtainable, Chills, Night Sweats, Fatigue, Malaise, Normal Appetite, Other Symptoms Constitutional: Denies: Chills, Fever, Malaise, Night Sweats, Weakness, Fatig ue, Weight Loss, Lethargy, Other Eyes: Denies: Pain, Vision change, Conjunctivae inflammation, Eyelid inflammation, Redness, Other ENT: Denies: Head Aches, Ear Pain, Dysphagia, Sinus Congestion, Post Nasal Drip, Sore Throat, Epistaxis, Other Symptoms Skin: Denies: Rash, Lesions, Jaundice, Bruising, Itching, Dry, Breakdown, Nail Changes, Other Pulmonary: Denies: Dyspnea, Cough, Pleuritic Chest Pain, Other Symptoms Cardiovascular: Denies: Chest Pain, Palpitations, Orthopnea, Paroxysmal Noc. Dyspnea, Edema, Lt Headedness, Other Symptoms Gastrointestinal: Denies: Nausea, Vomiting, Abdominal Pain, Diarrhea, Constipation, Melena, Hematochezia, Other Symptoms Genitourinary: Denies: Dysuria, Frequency, Incontinence, Hematuria, Retention, Other Symptoms Hematologic: Denies: Bruising, Bleeding Excessively, Petecchia, Purpura, Enlarged Lymph Nodes, Other Hematologic Endocrine: Denies: Polydipsia, Polyphagia, Polyuria, Heat Intolerance, Cold Intolerance, Other Endocrine Sx Musculoskeletal: Reports: Other Symptoms (L toe throbbing pain) Neurological: Denies: Weakness, Numbness, Incoordination, Change in speech, Confusion, Seizures, Other Symptoms Psych: Denies: Mood Normal, Anxiety, Depression, Memory Issues, Thoughts of Self Harm, Anger, Thoughts of Harming Other, Other Psych Objective Physical Examination General Exam: Positive: Alert, Cooperative, No Acute Distress Eye Exam: Positive: PERRLA, Conjunctiva & lids normal ENT Exam: Positive: Atraumatic, Mucous membr. moist/pink Neck Exam: Positive: Supple Chest Exam: Positive: Clear to auscultation, Normal air movement Heart Exam: Positive: Rate Normal, Normal S1, Normal S2 Telemetry: Positive: No significant arrhythmia Abdomen Exam: Positive: Normal bowel sounds, Soft Extremity Exam: Positive: Other (. Left foot is cold on touch. There is no popl iteal pulses to left popliteal artery) Skin Exam: Positive: Other skin issue (. As above) Neuro Exam: Negative: Normal Gait, Normal Speech, Strength at 5/5 X4 ext, Normal Tone, Sensation Intact, Cranial Nerves 3-12 NL, Reflexes 2+, Other Psych Exam: Negative: Mental status NL, Mood NL, Anxiety, Memory Intact, Oriented x 3, Other Assessment /Plan Problems (1) Vascular insufficiency of limb Status: Acute Problem Specific Plan: Consult Specialist (. Dr. Martin) Problem Text: Continue cardiac monitoring and heparin gtt. Dr. Martin following the patient. NPO after midnight. Will have revision of bifemoral graft tomorrow. Continue heparin infusion as per orders. (2) HTN (hypertension) Status: Chronic Problem Text: Stable Continue home meds (3) Type 2 diabetes mellitus Status: Chronic Problem Text: Fingerstick blood sugar every 6 hours with regular insulin coverage By mouth oral hypoglycemic agents (4) COPD (chronic obstructive pulmonary disease) Status: Chronic Problem Text: Under control (5) Tobacco abuse Status: Chronic Problem Text: Abstinent counseling done NicoDerm patch (6) Anemia Status: Chronic Problem Text: History of GI bleed in the past On anticoagulation H&H regularly , Transfuse as needed (7) Dyslipidemia Status: Chronic Problem Text: Continue Lipitor Plan/VTE VTE Prophylaxis Ordered?: Yes VS, I&O, 24H, Fishbone Vital Signs/I&O Vital Signs Date Time Temp Pulse Resp B/P (MAP) Pulse Ox O2 Delivery O2 Flow Rate FiO2 08/26/18 22:42 16 08/26/18 20:00 99.4 89 132/63 (86) 93 08/23/18 14:30 Room Air I&O- Last 24 Hours up to 6 AM 08/26/18 06:00 Intake Total 1158 ml Output Total 800 ml Balance 358 ml Laboratory Data 24H LABS Laboratory Tests 2 08/26/18 06:15: Nucleated Red Blood Cells % (auto) 0.0, Activated Partial Thromboplast Time > 240.0*H, Anion Gap 7L, Glomerular Filtration Rate > 60.0, Blood Urea Nitrogen 13, Creatinine 0.64, Sodium Level 141, Potassium Level 3.6, Chloride Level 107, Carbon Dioxide Level 27, Calcium Level 7.6L, Aspartate Amino Transf (AST/SGOT) 9, Alanine Aminotransferase (ALT/SGPT) 12, Alkaline Phosphatase 105, Total Bilirubin 0.2, Total Protein 6.0L, Albumin 2.2L, Albumin/Globulin Ratio 0.58L 08/26/18 08:14: Activated Partial Thromboplast Time 106.4H 08/26/18 12:01: Bedside Glucose (Misc Panel) 163H 08/26/18 16:11: Activated Partial Thromboplast Time 83.0H 08/26/18 16:38: Bedside Glucose (Misc Panel) 153H 08/26/18 20:33: Activated Partial Thromboplast Time 81.8H CBC/BMP Laboratory Tests 08/26/18 06:15 Red Blood Count 3.05 L, Mean Corpuscular Volume 87.5, Mean Corpuscular Hemoglobin 26.9 L, Mean Corpuscular Hemoglobin Concent 30.7 L, Red Cell Distribution Width 18.1 H, Calcium Level 7.6 L, Aspartate Amino Transf (AST/SGOT) 9, Alanine Aminotransferase (ALT/SGPT) 12, Alkaline Phosphatase 105, Total Bilirubin 0.2, Total Protein 6.0 L, Albumin 2.2 L Microbiology Microbiology 08/23/18 Blood Culture - Preliminary, Resulted No Growth after 72 hours. All specime... 08/23/18 Blood Culture - Preliminary, Resulted No Growth after 72 hours. All specime... RYAN MOCTEZUMA MD Aug 26, 2018 23:21
[2018-08-27] VITALS: BP 120/57
[2018-08-27] MEDS: PERCOCET 5MG/325MG TAB PO PRN ×5 (02:13→20:17)
[2018-08-27 04:00] VITALS: BP 108/56
[2018-08-27] MEDS: SODIUM CHLORIDE 0.9% INJ 10 ML SYR IV PRN (04:47)
[2018-08-27] MEDS: MORPHINE 4 MG/ML 1ML VIAL/SYRINGE (J2270) IV PRN ×3 (04:48→22:50)
[2018-08-27 05:09] LABS: HEMATOCRIT 27.4 % (36.0-47.0); HEMOGLOBIN 8.4 g/dl (12.0-15.5); MEAN CORPUSCULAR HEMOGLOBIN 26.8 pg (27.0-33.0); MEAN CORPUSCULAR HGB CONC 30.7 g/dl (32.0-36.5); MEAN CORPUSCULAR VOLUME 87.5 fl (80.0-96.0); PLATELET COUNT, AUTOMATED 487 10^3/uL (150-450); RED BLOOD COUNT 3.13 10^6/uL (4.00-5.40); WHITE BLOOD COUNT 10.5 10^3/uL (4.0-10.0)
[2018-08-27] MEDS: SODIUM CHLORIDE 0.9% INJ 10 ML SYR IV SCH ×2 (05:10→17:59)
[2018-08-27 05:29] LABS: INR 0.96; PROTHROMBIN TIME 12.9 SECONDS (12.1-14.4)
[2018-08-27 05:31] LABS: PARTIAL THROMBOPLASTIN TIME 77.3 SECONDS (25.4-37.6)
[2018-08-27 05:32] LABS: ALBUMIN 2.3 GM/DL (3.2-5.2); ALT/SGPT 12 U/L (12-78); BILIRUBIN,TOTAL 0.2 MG/DL (0.2-1.0); BLOOD UREA NITROGEN 11 MG/DL (7-18); CALCIUM LEVEL 7.9 MG/DL (8.8-10.2); CARBON DIOXIDE LEVEL 26 MEQ/L (21-32); CHLORIDE LEVEL 105 MEQ/L (98-107); GLOMERULAR FILTRATION RATE > 60.0 (>39); GLUCOSE, FASTING 150 MG/DL (70-100); POTASSIUM SERUM 3.6 MEQ/L (3.5-5.1); SODIUM LEVEL 139 MEQ/L (136-145); TOTAL PROTEIN 5.9 GM/DL (6.4-8.2)
[2018-08-27] MEDS: SUCRALFATE 1 GM TAB PO SCH ×4 (07:04→20:16)
[2018-08-27 08:00] VITALS: BP 117/56
[2018-08-27] MEDS: HumaLOG INSULIN (NovoLOG) PER UNIT SC SCH ×4 (09:21→21:00)
[2018-08-27] MEDS: PANTOPRAZOLE 40MG TAB (PROTONIX) PO SCH ×2 (09:22→20:17)
[2018-08-27] MEDS: FERROUS SULFATE 325MG TAB PO SCH ×2 (09:22→20:16)
[2018-08-27] MEDS: CLOPIDOGREL 75 MG TAB PO SCH (09:23)
[2018-08-27] MEDS: amLODIPine 5 MG TAB PO SCH (09:23)
--- NOTE | 2018-08-27 09:37 | IPNPDOC ---
Date Seen The patient was seen on 08/27/18. Progress Note Vascular Surgery. Dr Martin. 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 Revision of Ax Bifem graft 08/16/[address] Martin discharged 08/21/18. Patient presented in ER 08/23/18 with chief complaints of cold left foot admission was arranged, vascular surgery consulted. The pt states she is still having pain in the left great toe, states this overall remains unchanged. Denies any fevers, chills, weakness, fatigue, Headache, Chest Pain, Shortness of breath, cough, palpitations, abdominal pain, N/V/D or changes in bowel or bladder habits. PAST MEDICAL HISTORY: Hypertension. Hyperlipidemia. Type 2 diabetes. COPD. ERCP June 2017 cholangitis/biliary stent. H/O upper and lower GI bleed. EGD on 04/22/2017 that showed multiple (more than 10) small angioectasia of the duodenum treated with argon-beam coagulation. Recent admission for UGIB, EGD 07/10/18 Three non-bleeding angioectasias in the stomach. Treated with argon beam coagulation. A few non-bleeding angioectasias in the duodenum. Treated with argon beam coagulation. Patent biliary stent. chronic anemia history of vascular disease status post bilateral common iliac artery and angioplasty and stenting. H/O DVT of the left lower extremity and was anticoagulated on warfarin until her admission for GI Bleeding March 2017. PAST SURGICAL HISTORY: Tonsillectomy. Bilateral common iliac artery angioplasty stenting. EGDs and colonoscopies. 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 Treated with argon beam coagulation. A few non-bleeding angioectasias in the duodenum. Treated with argon beam coagulation. Patent biliary stent. ERCP as above. Right-sided axillofemoral and [id number] fem/fem bypass undetermined date. PE: GEN: 78yoF, appears stated age. No acute distress. Alert and oriented x 3. HEENT: Normocephalic, atraumatic. Sclera are nonicteric. Conjunctiva without injection. Moist mucous membranes. CHEST: Regular rate and rhythm, +S1, +S2 LUNGS: Clear to auscultation bilaterally. No wheezes, rales, or rhonchi. Breathing appears symmetric and easy. ABD: Round, soft, non-tender, non-distended. +Bowel sounds throughout. No rebound or guarding. EXT: No lower extremity edema appreciated. Toes left foot are discolored, warmer to touch this am. Left DP/PT unable to obtain with doppler. Rt foot with palpable DP and biphasic PT with doppler. SKIN: No rashes. NEURO: Alert and oriented x 3. Cranial nerves III-XII are intact. No focal deficits appreciated. A&P: H/o Right-sided axillofemoral and [id number] fem/fem bypass. S/P revision Rt Ax Bifem bypass as per Dr Martin 08/16/18. The pt is well known to Dr Martin. Continue Heparin IV. Tentative plan for Left Ax-Fem bypass 08/28/18. monitor. H/O upper and lower GI bleed. EGD on 04/22/2017 that showed multiple (more than 10) small angioectasia of the duodenum treated with argon-beam coagulation. Recent admission for UGIB, EGD 07/10 Three non-bleeding angioectasias in the stomach. Treated with argon beam coagulation. A few non-bleeding angioectasias in the duodenum. Treated with argon beam coagulation. Patent biliary stent. Follows with Dr Santoyo. Continue PPI BID Continue Carafate AC/HS. chronic anemia. Monitor CBC. Hgb 8.4 Fe supplement BID. FOB pending. Monitor for bleeding. Tobacco use. Reinforced cessation. VS, I&O, 24H, Fishbone Vital Signs/I&O Vital Signs Date Time Temp Pulse Resp B/P (MAP) Pulse Ox O2 Delivery O2 Flow Rate FiO2 08/27/18 09:23 86 140/60 08/27/18 07:20 12 08/27/18 04:00 99.0 95 08/23/18 14:30 Room Air I&O- Last 24 Hours up to 6 AM 08/27/18 05:59 Intake Total 500.3 ml Output Total 1850 ml Balance -1349.7 ml Laboratory Data 24H LABS Laboratory Tests 2 08/26/18 12:01: Bedside Glucose (Misc Panel) 163H 08/26/18 16:11: Activated Partial Thromboplast Time 83.0H 08/26/18 16:38: Bedside Glucose (Misc Panel) 153H 08/26/18 20:33: Activated Partial Thromboplast Time 81.8H 08/26/18 20:38: Bedside Glucose (Misc Panel) 131H 08/27/18 04:50: Nucleated Red Blood Cells % (auto) 0.4H, Prothrombin Time 12.9, Prothromb Time International Ratio 0.96, Activated Partial Thromboplast Time 77.3H, Anion Gap 8, Glomerular Filtration Rate > 60.0, Blood Urea Nitrogen 11, Creatinine 0.60, Sodium Level 139, Potassium Level 3.6, Chloride Level 105, Carbon Dioxide Level 26, Calcium Level 7.9L, Aspartate Amino Transf (AST/SGOT) 9, Alanine Aminotransferase (ALT/SGPT) 12, Alkaline Phosphatase 106, Total Bilirubin 0.2, Total Protein 5.9L, Albumin 2.3L, Albumin/Globulin Ratio 0.64L 08/27/18 07:32: Bedside Glucose (Misc Panel) 138H CBC/BMP Laboratory Tests 08/27/18 04:50 Red Blood Count 3.13 L, Mean Corpuscular Volume 87.5, Mean Corpuscular Hemoglobin 26.8 L, Mean Corpuscular Hemoglobin Concent 30.7 L, Red Cell Distribution Width 18.3 H, Calcium Level 7.9 L, Aspartate Amino Transf (AST/SGOT) 9, Alanine Aminotransferase (ALT/SGPT) 12, Alkaline Phosphatase 106, Total Bilirubin 0.2, Total Protein 5.9 L, Albumin 2.3 L Microbiology Microbiology 08/23/18 Blood Culture - Preliminary, Resulted No Growth after 72 hours. All specime... 08/23/18 Blood Culture - Preliminary, Resulted No Growth after 72 hours. All specime... Sunshine Allison Aug 27, 2018 09:36
[2018-08-27] MEDS: HEPARIN DRIP 25,000 UNITS in APPROPRIATE DILUENT 1 EA IV SCH (12:03)
[2018-08-27 16:00] VITALS: BP 109/58
--- NOTE | 2018-08-27 18:54 | IPNPDOC ---
Subjective Date Seen The patient was seen on 08/27/18. Subjective Chief Complaint/HPI The patient still has cold foot in the L. No other complaints. Denies blood in stool or urine. Denies a fever, chills, nausea, vomiting or diarrhea. General: Denies: ROS Unobtainable, Chills, Night Sweats, Fatigue, Malaise, Normal Appetite, Other Symptoms Constitutional: Denies: Chills, Fever, Malaise, Night Sweats, Weakness, Fatigue, Weight Loss, Lethargy, Other Eyes: Denies: Pain, Vision change, Conjunctivae inflammation, Eyelid inflammation, Redness, Other ENT: Denies: Head Aches, Ear Pain, Dysphagia, Sinus Congestion, Post Nasal Drip, Sore Throat, Epistaxis, Other Symptoms Skin: Denies: Rash, Lesions, Jaundice, Bruising, Itching, Dry, Breakdown, Nail Changes, Other Pulmonary: Denies: Dyspnea, Cough, Pleuritic Chest Pain, Other Symptoms Cardiovascular: Denies: Chest Pain, Palpitations, Orthopnea, Paroxysmal Noc. Dyspnea, Edema, Lt Headedness, Other Symptoms Gastrointestinal: Denies: Nausea, Vomiting, Abdominal Pain, Diarrhea, Constipation, Melena, Hematochezia, Other Symptoms Genitourinary: Denies: Dysuria, Frequency, Incontinence, Hematuria, Retention, Other Symptoms Hematologic: Denies: Bruising, Bleeding Excessively, Petecchia, Purpura, Enlarged Lymph Nodes, Other Hematologic Endocrine: Denies: Polydipsia, Polyphagia, Polyuria, Heat Intolerance, Cold Intolerance, Other Endocrine Sx Musculoskeletal: Reports: Other Symptoms (L toe throbbing pain) Neurological: Denies: Weakness, Numbness, Incoordination, Change in speech, Confusion, Seizures, Other Symptoms Psych: Denies: Mood Normal, Anxiety, Depression, Memory Issues, Thoughts of Self Harm, Anger, Thoughts of Harming Other, Other Psych Objective Physical Examination General Exam: Positive: Alert, Cooperative, No Acute Distress Eye Exam: Positive: PERRLA, Conjunctiva & lids normal ENT Exam: Positive: Atraumatic, Mucous membr. moist/pink Neck Exam: Positive: Supple Chest Exam: Positive: Clear to auscultation, Normal air movement Heart Exam: Positive: Rate Normal, Normal S1, Normal S2 Telemetry: Positive: No significant arrhythmia Abdomen Exam: Positive: Normal bowel sounds, Soft Extremity Exam: Positive: Other (. Left foot is cold on touch. There is no popliteal pulses to left popliteal artery) Skin Exam: Positive: Other skin issue (. As above) Neuro Exam: Negative: Normal Gait, Normal Speech, Strength at 5/5 X4 ext, Normal Tone, Sensation Intact, Cranial Nerves 3-12 NL, Reflexes 2+, Other Psych Exam: Negative: Mental status NL, Mood NL, Anxiety, Memory Intact, Oriented x 3, Other Assessment /Plan Problems (1) Vascular insufficiency of limb Status: Acute Problem Specific Plan: Consult Specialist (. Dr. Martin) Problem Text: Continue cardiac monitoring and heparin gtt. Dr. Martin following the patient. Again NPO after midnight. Will have revision of bifemoral graft tomorrow. Continue heparin infusion as per orders. (2) HTN (hypertension) Status: Chronic Problem Text: Stable Continue home meds (3) Type 2 diabetes mellitus Status: Chronic Problem Text: Fingerstick blood sugar every 6 hours with regular insulin coverage By mouth oral hypoglycemic agents (4) COPD (chronic obstructive pulmonary disease) Status: Chronic Problem Text: Under control (5) Tobacco abuse Status: Chronic Problem Text: Abstinent counseling done NicoDerm patch (6) Anemia Status: Chronic Problem Text: History of GI bleed in the past On anticoagulation H&H regularly , Transfuse as needed (7) Dyslipidemia Status: Chronic Problem Text: Continue Lipitor Plan/VTE VTE Prophylaxis Ordered?: Yes VS, I&O, 24H, Fishbone Vital Signs/I&O Vital Signs Date Time Temp Pulse Resp B/P (MAP) Pulse Ox O2 Delivery O2 Flow Rate FiO2 08/27/18 16:15 20 08/27/18 16:00 97.5 89 109/58 (75) 97 08/23/18 14:30 Room Air I&O- Last 24 Hours up to 6 AM 08/27/18 06:00 Intake Total 494.3 ml Output Total 1850 ml Balance -1355.7 ml Laboratory Data 24H LABS Laboratory Tests 2 08/26/18 20:33: Activated Partial Thromboplast Time 81.8H 08/26/18 20:38: Bedside Glucose (Misc Panel) 131H 08/27/18 04:50: Activated Partial Thromboplast Time 77.3H, Nucleated Red Blood Cells % (auto) 0.4H, Prothrombin Time 12.9, Prothromb Time International Ratio 0.96, Anion Gap 8, Glomerular Filtration Rate > 60.0, Blood Urea Nitrogen 11, Creatinine 0.60, Sodium Level 139, Potassium Level 3.6, Chloride Level 105, Carbon Dioxide Level 26, Calcium Level 7.9L, Aspartate Amino Transf (AST/SGOT) 9, Alanine Aminotransferase (ALT/SGPT) 12, Alkaline Phosphatase 106, Total Bilirubin 0.2, Total Protein 5.9L, Albumin 2.3L, Albumin/Globulin Ratio 0.64L 08/27/18 07:32: Bedside Glucose (Misc Panel) 138H 08/27/18 11:56: Bedside Glucose (Misc Panel) 218H 08/27/18 16:45: Bedside Glucose (Misc Panel) 182H CBC/BMP Laboratory Tests 08/27/18 04:50 Red Blood Count 3.13 L, Mean Corpuscular Volume 87.5, Mean Corpuscular Hemoglobin 26.8 L, Mean Corpuscular Hemoglobin Concent 30.7 L, Red Cell Distribution Width 18.3 H, Calcium Level 7.9 L, Aspartate Amino Transf (AST/SGOT) 9, Alanine Aminotransferase (ALT/SGPT) 12, Alkaline Phosphatase 106, Total Bilirubin 0.2, Total Protein 5.9 L, Albumin 2.3 L Microbiology Microbiology 08/23/18 Blood Culture - Preliminary, Resulted No Growth after 72 hours. All specime... 08/23/18 Blood Culture - Preliminary, Resulted No Growth after 72 hours. All specime... RYAN MOCTEZUMA MD Aug 27, 2018 18:54
[2018-08-27] MEDS: ATORVASTATIN 20 MG TAB PO SCH (20:17)
[2018-08-27 20:34] VITALS: BP 135/63
[2018-08-27 23:59] VITALS: BP 110/54
[2018-08-28] MEDS: PERCOCET 5MG/325MG TAB PO PRN ×2 (01:23→10:43)
[2018-08-28 04:00] VITALS: BP 113/56
[2018-08-28] MEDS: MORPHINE 4 MG/ML 1ML VIAL/SYRINGE (J2270) IV PRN ×2 (05:52→15:54)
[2018-08-28] MEDS: SODIUM CHLORIDE 0.9% INJ 10 ML SYR IV SCH ×2 (05:54→17:55)
[2018-08-28] MEDS: SUCRALFATE 1 GM TAB PO SCH ×4 (07:30→20:39)
[2018-08-28] MEDS: HumaLOG INSULIN (NovoLOG) PER UNIT SC SCH ×4 (07:30→20:40)
[2018-08-28 08:00] VITALS: BP 112/54
[2018-08-28] MEDS: CLOPIDOGREL 75 MG TAB PO SCH (08:39)
[2018-08-28] MEDS: FERROUS SULFATE 325MG TAB PO SCH ×2 (08:39→20:39)
[2018-08-28] MEDS: PANTOPRAZOLE 40MG TAB (PROTONIX) PO SCH ×2 (08:39→20:39)
[2018-08-28] MEDS: amLODIPine 5 MG TAB PO SCH (08:40)
--- NOTE | 2018-08-28 08:49 | IPNPDOC ---
Date Seen The patient was seen on 08/28/18. Progress Note Vascular Surgery. Dr Martin. 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 Revision of Ax Bifem graft 08/16/[address] Martin discharged 08/21/18. Patient presented in ER 08/23/18 with chief complaints of cold left foot admission was arranged, vascular surgery consulted. The pt states she is still having pain in the left great toe, states this overall remains unchanged. Worse if she ambulates. Denies any fevers, chills, weakness, fatigue, Headache, Chest Pain, Shortness of breath, cough, palpitations, abdominal pain, N/V/D or changes in bowel or bladder habits. PAST MEDICAL HISTORY: Hypertension. Hyperlipidemia. Type 2 diabetes. COPD. ERCP June 2017 cholangitis/biliary stent. H/O upper and lower GI bleed. EGD on 04/22/2017 that showed multiple (more than 10) small angioectasia of the duodenum treated with argon-beam coagulation. Recent admission for UGIB, EGD 07/10/18 Three non-bleeding angioectasias in the stomach. Treated with argon beam coagulation. A few non-bleeding angioectasias in the duodenum. Treated with argon beam coagulation. Patent biliary stent. chronic anemia history of vascular disease status post bilateral common iliac artery and angioplasty and stenting. H/O DVT of the left lower extremity and was anticoagulated on warfarin until her admission for GI Bleeding March 2017. PAST SURGICAL HISTORY: Tonsillectomy. Bilateral common iliac artery angioplasty stenting. EGDs and colonoscopies. 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 Treated with argon beam coagulation. A few non-bleeding angioectasias in the duodenum. Treated with argon beam coagulation. Patent biliary stent. ERCP as above. Right-sided axillofemoral and [id number] fem/fem bypass undetermined date. PE: GEN: 78yoF, appears stated age. No acute distress. Alert and oriented x 3. HEENT: Normocephalic, atraumatic. Sclera are nonicteric. Conjunctiva without injection. Moist mucous membranes. CHEST: Regular rate and rhythm, +S1, +S2 LUNGS: Clear to auscultation bilaterally. No wheezes, rales, or rhonchi. Breathing appears symmetric and easy. ABD: Round, soft, non-tender, non-distended. +Bowel sounds throughout. No rebound or guarding. EXT: No lower extremity edema appreciated. Toes left foot are discolored, warmer to touch this am. Left DP/PT unable to obtain with doppler. Rt foot with palpable DP and biphasic PT with doppler. SKIN: No rashes. NEURO: Alert and oriented x 3. Cranial nerves III-XII are intact. No focal deficits appreciated. A&P: H/o Right-sided axillofemoral and [id number] fem/fem bypass. S/P revision Rt Ax Bifem bypass as per Dr Martin 08/16/18. The pt is well known to Dr Martin. Continue Heparin IV. Plan for Left Ax-Fem bypass 08/28/[address] Martin. monitor. H/O upper and lower GI bleed. EGD on 04/22/2017 that showed multiple (more than 10) small angioectasia of the duodenum treated with argon-beam coagulation. Recent admission for UGIB, EGD 07/10 Three non-bleeding angioectasias in the stomach. Treated with argon beam coagulation. A few non-bleeding angioectasias in the duodenum. Treated with argon beam coagulation. Patent biliary stent. Follows with Dr Santoyo. Continue PPI BID Continue Carafate AC/HS. chronic anemia. Monitor CBC. Hgb 8.4 Fe supplement BID. FOB pending. Monitor for bleeding. Tobacco use. Reinforced cessation. VS, I&O, 24H, Fishbone Vital Signs/I&O Vital Signs Date Time Temp Pulse Resp B/P (MAP) Pulse Ox O2 Delivery O2 Flow Rate FiO2 08/28/18 08:40 88 112/54 08/28/18 08:00 98.0 20 99 08/23/18 14:30 Room Air I&O- Last 24 Hours up to 6 AM 08/28/18 06:00 Intake Total 1160 ml Output Total 1150 ml Balance 10 ml Laboratory Data 24H LABS Laboratory Tests 2 08/27/18 11:56: Bedside Glucose (Misc Panel) 218H 08/27/18 16:45: Bedside Glucose (Misc Panel) 182H 08/27/18 20:54: Bedside Glucose (Misc Panel) 138H 08/28/18 05:49: Activated Partial Thromboplast Time 103.4H Microbiology Microbiology 08/23/18 Blood Culture - Preliminary, Resulted No Growth after 72 hours. All specime... 08/23/18 Blood Culture - Preliminary, Resulted No Growth after 72 hours. All specime... Sunshine Allison Aug 28, 2018 08:49
[2018-08-28 09:36] LABS: HEMATOCRIT 30.2 % (36.0-47.0); HEMOGLOBIN 9.1 g/dl (12.0-15.5); MEAN CORPUSCULAR HEMOGLOBIN 26.2 pg (27.0-33.0); MEAN CORPUSCULAR HGB CONC 30.1 g/dl (32.0-36.5); PLATELET COUNT, AUTOMATED 544 10^3/uL (150-450); RED BLOOD COUNT 3.47 10^6/uL (4.00-5.40); WHITE BLOOD COUNT 11.3 10^3/uL (4.0-10.0)
[2018-08-28 09:57] LABS: BLOOD UREA NITROGEN 14 MG/DL (7-18); CALCIUM LEVEL 8.8 MG/DL (8.8-10.2); CARBON DIOXIDE LEVEL 28 MEQ/L (21-32); CHLORIDE LEVEL 105 MEQ/L (98-107); CREATININE FOR GFR 0.58 MG/DL (0.55-1.30); GLOMERULAR FILTRATION RATE > 60.0 (>39); GLUCOSE, FASTING 140 MG/DL (70-100); POTASSIUM SERUM 4.2 MEQ/L (3.5-5.1); SODIUM LEVEL 139 MEQ/L (136-145)
[2018-08-28 12:00] VITALS: BP 99/51
[2018-08-28] MEDS ORDERED: BUPIVACAINE HCL 0.25% 30 ML VIAL As Ordered ONE (13:25)
[2018-08-28] MEDS ORDERED: THROMBIN SOLN 20,000 UNITS KIT As Ordered ONE (13:25)
[2018-08-28] MEDS ORDERED: LIDOCAINE 1% SDV INJ 30 ML VIAL As Ordered ONE (13:25)
[2018-08-28] MEDS ORDERED: PROTAMINE SULF INJ 50 MG/5 ML VIAL (J2720) As Ordered ONE (13:26)
[2018-08-28] MEDS ORDERED: HEPARIN SOD (PORCINE) 5000 UNITS/ML VIAL As Ordered ONE (13:26)
[2018-08-28] MEDS ORDERED: ISOVUE-370 76% 100ML VIAL (Q9967) As Ordered ONE (13:48)
[2018-08-28] MEDS ORDERED: HEPARIN 25,000 UNITS/250 ML D5W BAG (100 UNITS/ML) As Ordered ONE (13:50)
[2018-08-28] MEDS: HEPARIN DRIP 25,000 UNITS in APPROPRIATE DILUENT 1 EA IV SCH (13:52)
[2018-08-28] MEDS ORDERED: MORPHINE 4 MG/ML 1ML VIAL/SYRINGE (J2270) As Ordered ONE (15:47)
--- NOTE | 2018-08-28 15:48 | IPNPDOC ---
Subjective Date Seen The patient was seen on 08/28/18. Subjective Chief Complaint/HPI The patient has no complaints. She still has mild throbbing pain in the toe, but no other complaints. General: Reports: Normal Appetite; Denies: Chills, Night Sweats, Fatigue, Malaise Constitutional: Denies: Chills, Fever, Night Sweats Eyes: Denies: Pain, Vision change ENT: Denies: Head Aches, Ear Pain, Dysphagia Skin: Denies: Rash, Lesions, Breakdown Pulmonary: Denies: Dyspnea, Cough Cardiovascular: Denies: Chest Pain, Palpitations, Orthopnea, Paroxysmal Noc. Dyspnea, Lt Headedness Gastrointestinal: Denies: Nausea, Vomiting, Abdominal Pain, Diarrhea, Constipation Genitourinary: Denies: Dysuria, Frequency, Incontinence, Retention Hematologic: Denies: Bruising, Bleeding Excessively Musculoskeletal: Denies: Neck Pain, Back Pain, Joint Pain, Muscle Pain, Spasms Neurological: Denies: Weakness, Numbness, Change in speech, Confusion Psych: Reports: Mood Normal; Denies: Depression, Memory Issues Objective Physical Examination General Exam: Positive: Alert, Cooperative, No Acute Distress Eye Exam: Positive: PERRLA, Conjunctiva & lids normal ENT Exam: Positive: Atraumatic, Mucous membr. moist/pink Neck Exam: Positive: Supple Chest Exam: Positive: Clear to auscultation, Normal air movement Heart Exam: Positive: Rate Normal, Normal S1, Normal S2 Telemetry: Positive: No significant arrhythmia Abdomen Exam: Positive: Normal bowel sounds, Soft Extremity Exam: Positive: Other (. Left foot is cold on touch. There is no popliteal pulses to left popliteal artery) Skin Exam: Positive: Other skin issue (. As above) Neuro Exam: Negative: Normal Gait, Normal Speech, Strength at 5/5 X4 ext, Normal Tone, Sensation Intact, Cranial Nerves 3-12 NL, Reflexes 2+, Other Psych Exam: Negative: Mental status NL, Mood NL, Anxiety, Memory Intact, Oriented x 3, Other Assessment /Plan Problems (1) Vascular insufficiency of limb Status: Acute Problem Specific Plan: Consult Specialist (. Dr. Martin) Problem Text: - she had CT angio, which was reviewed by Dr. Martin. She will not have surgery. - Continue heparin gtt and resume diet. (2) HTN (hypertension) Status: Chronic Problem Text: Stable Continue home meds (3) Type 2 diabetes mellitus Status: Chronic Problem Text: Fingerstick blood sugar every 6 hours with regular insulin coverage By mouth oral hypoglycemic agents (4) COPD (chronic obstructive pulmonary disease) Status: Chronic Problem Text: Under control (5) Tobacco abuse Status: Chronic Problem Text: Abstinent counseling done NicoDerm patch (6) Anemia Status: Chronic Problem Text: History of GI bleed in the past On anticoagulation H&H regularly , Transfuse as needed (7) Dyslipidemia Status: Chronic Problem Text: Continue Lipitor Plan/VTE VTE Prophylaxis Ordered?: Yes VS, I&O, 24H, Fishbone Vital Signs/I&O Vital Signs Date Time Temp Pulse Resp B/P (MAP) Pulse Ox O2 Delivery O2 Flow Rate FiO2 08/28/18 12:00 96.5 87 20 99/51 (67) 99 08/23/18 14:30 Room Air I&O- Last 24 Hours up to 6 AM 08/28/18 06:00 Intake Total 1160 ml Output Total 1150 ml Balance 10 ml Laboratory Data 24H LABS Laboratory Tests 2 08/27/18 16:45: Bedside Glucose (Misc Panel) 182H 08/27/18 20:54: Bedside Glucose (Misc Panel) 138H 08/28/18 05:49: Activated Partial Thromboplast Time 103.4H 08/28/18 09:11: Nucleated Red Blood Cells % (auto) 0.4H, Anion Gap 6L, Glomerular Filtration Rate > 60.0, Blood Urea Nitrogen 14, Creatinine 0.58, Sodium Level 139, Potassium Level 4.2, Chloride Level 105, Carbon Dioxide Level 28, Calcium Level 8.8 08/28/18 12:25: Bedside Glucose (Misc Panel) 145H CBC/BMP Laboratory Tests 08/28/18 09:11 Red Blood Count 3.47 L, Mean Corpuscular Volume 87.0, Mean Corpuscular Hemoglobin 26.2 L, Mean Corpuscular Hemoglobin Concent 30.1 L, Red Cell Distribution Width 19.0 H, Calcium Level 8.8 Microbiology Microbiology 08/23/18 Blood Culture - Final, Complete NO GROWTH AFTER 5 DAYS 08/23/18 Blood Culture - Final, Complete NO GROWTH AFTER 5 DAYS RYAN MOCTEZUMA MD Aug 28, 2018 15:48
[2018-08-28 16:00] VITALS: BP 139/63
[2018-08-28] MEDS: NORCO, ANEXSIA 5/325MG TABLET (HYDROcodone/ACETAMINOPHEN) PO PRN ×2 (17:55→23:39)
[2018-08-28 20:00] VITALS: BP 117/56
[2018-08-28] MEDS: ATORVASTATIN 20 MG TAB PO SCH (20:39)
[2018-08-28 23:59] VITALS: BP 121/62
[2018-08-29] MEDS: MORPHINE 4 MG/ML 1ML VIAL/SYRINGE (J2270) IV PRN ×4 (00:04→23:50)
[2018-08-29 04:00] VITALS: BP 114/56
[2018-08-29 06:00] LABS: HEMATOCRIT 28.7 % (36.0-47.0); HEMOGLOBIN 8.8 g/dl (12.0-15.5); MEAN CORPUSCULAR HGB CONC 30.7 g/dl (32.0-36.5); PLATELET COUNT, AUTOMATED 488 10^3/uL (150-450); RED BLOOD COUNT 3.26 10^6/uL (4.00-5.40); WHITE BLOOD COUNT 10.4 10^3/uL (4.0-10.0)
[2018-08-29] MEDS: SODIUM CHLORIDE 0.9% INJ 10 ML SYR IV SCH ×2 (06:19→17:21)
[2018-08-29 06:27] LABS: ALBUMIN 2.2 GM/DL (3.2-5.2); ALT/SGPT 14 U/L (12-78); BILIRUBIN,TOTAL 0.3 MG/DL (0.2-1.0); BLOOD UREA NITROGEN 15 MG/DL (7-18); CALCIUM LEVEL 7.8 MG/DL (8.8-10.2); CARBON DIOXIDE LEVEL 27 MEQ/L (21-32); CHLORIDE LEVEL 107 MEQ/L (98-107); CREATININE FOR GFR 0.49 MG/DL (0.55-1.30); GLOMERULAR FILTRATION RATE > 60.0 (>39); GLUCOSE, FASTING 140 MG/DL (70-100); POTASSIUM SERUM 3.5 MEQ/L (3.5-5.1); SODIUM LEVEL 140 MEQ/L (136-145); TOTAL PROTEIN 5.7 GM/DL (6.4-8.2)
[2018-08-29] MEDS: NORCO, ANEXSIA 5/325MG TABLET (HYDROcodone/ACETAMINOPHEN) PO PRN ×3 (07:16→21:37)
--- NOTE | 2018-08-29 07:36 | REP ---
CT ANGIOGRAM ABDOMEN AND PELVIS AND BILATERAL LOWER EXTREMITIES: CT angiogram performed following the intravenous administration of 100 mL of Isovue 370. Sagittal, coronal and 3D MIP reconstruction images are performed. The images are obtained from just above the diaphragms through the feet. The proximal abdominal aorta demonstrates moderate atherosclerotic calcification. It tapers and becomes quite narrow at the level of the renal arteries and becomes occluded just inferior to the level of the renal arteries. The celiac artery is mildly narrowed at its origin. There superior mesenteric artery is also mildly narrowed at its origin. Both renal arteries are patent with moderate stenosis at the origin of the right renal artery as well as the left renal artery. There is an occluded left axillofemoral bypass graft. There is a patent right axillofemoral bypass graft. Surgical domo are seen on the skin overlying the anastomosis with an occluded femoral to femoral bypass graft. This occlusion was seen on prior ultrasound 08/10/2018. There is some air and fluid in the soft tissue surrounding the occluded fem-to-fem bypass graft on the right side. This is in the region of the surgical domo. Developing abscess cannot be totally excluded. There is a small amount of retrograde flow into a tiny right external iliac artery. The right common femoral artery demonstrates mild diffuse narrowing. Right superficial femoral artery demonstrates moderate diffuse narrowing with patent flow. There is patent flow in the right profunda. Popliteal artery is moderately narrowed diffusely. There is moderate narrowing of the right calf trifurcation vessels diffusely, which taper and become quite thin distally with at least two-vessel runoff into the right foot. There is flow in a tiny left internal iliac artery which appears to provide collateral flow into an extremely narrowed left external iliac artery. There are other adjacent collateral vessels from the abdominal wall and pelvis providing flow to a diffusely mild to moderately narrowed profunda. There is no flow in the [place] left superficial femoral artery. Tiny collateral arteries extend distally through the calf and popliteal region. Portions of trifurcation vessels are reconstituted in the proximal calf. These trifurcations vessels become quite narrow distally. There does appear to be flow into the foot near the anterior and posterior tibial arteries. An iliac stent is noted with biliary air. Calcified granulomas are seen in the spleen. There is adrenal gland thickening on the right. Pancreas is unremarkable. There is cortical scarring of the lower pole of the left kidney. There are cysts again seen in each kidney without hydronephrosis. No adenopathy, free air or free fluid is seen and I see no bowel wall thickening. There is sigmoid diverticulosis. There is no pelvic mass. IMPRESSION: There is again noted to be occlusion of the infrarenal abdominal aorta. Patent right axillofemoral bypass graft. Occlusion of femoral to femoral bypass graft. Metallic domo overlie the right lower quadrant, overlying a portion of the occluded graft. There is some air and fluid surrounding the occluded graft. I cannot exclude a developing abscess and clinical correlation and followup is recommended. Patent flow is seen through the right lower extremity as discussed above. Collateral flow is seen via multiple tiny collateral vessels in the left thigh reconstituting portions of the trifurcation arteries in the left calf. Electronically Signed by Allan Omalley MD 09/01/2018 09:55 A
[2018-08-29 08:00] VITALS: BP 117/56
[2018-08-29] MEDS: PANTOPRAZOLE 40MG TAB (PROTONIX) PO SCH ×2 (08:04→21:38)
[2018-08-29] MEDS: SUCRALFATE 1 GM TAB PO SCH ×4 (08:04→21:37)
[2018-08-29] MEDS: amLODIPine 5 MG TAB PO SCH (08:05)
[2018-08-29] MEDS: FERROUS SULFATE 325MG TAB PO SCH ×2 (08:05→21:37)
[2018-08-29] MEDS: HumaLOG INSULIN (NovoLOG) PER UNIT SC SCH ×4 (08:05→21:00)
[2018-08-29] MEDS: CLOPIDOGREL 75 MG TAB PO SCH (08:05)
[2018-08-29] MEDS: SODIUM CHLORIDE 0.9% INJ 10 ML SYR IV PRN (11:37)
[2018-08-29 12:00] VITALS: BP 119/58
--- NOTE | 2018-08-29 13:24 | IPNPDOC ---
Subjective Date Seen The patient was seen on 08/29/18. Subjective Chief Complaint/HPI L toe pain is less today. She has no other complaints. Denies a fever, chills, leg pain, or difficulty ambulating. General: Denies: ROS Unobtainable, Chills, Night Sweats, Fatigue, Malaise, Normal Appetite, Other Symptoms Constitutional: Denies: Chills, Fever, Malaise, Night Sweats, Weakness, Fatigue, Weight Loss, Lethargy, Other Eyes: Denies: Pain, Vision change, Conjunctivae inflammation, Eyelid inflammation, Redness, Other ENT: Denies: Head Aches, Ear Pain, Dysphagia, Sinus Congestion, Post Nasal Drip, Sore Throat, Epistaxis, Other Symptoms Skin: Denies: Rash, Lesions, Jaundice, Bruising, Itching, Dry, Breakdown, Nail Changes, Other Pulmonary: Denies: Dyspnea, Cough, Pleuritic Chest Pain, Other Symptoms Cardiovascular: Denies: Chest Pain, Palpitations, Orthopnea, Paroxysmal Noc. Dyspnea, Edema, Lt Headedness, Other Symptoms Gastrointestinal: Denies: Nausea, Vomiting, Abdominal Pain, Diarrhea, Constipation, Melena, Hematochezia, Other Symptoms Genitourinary: Denies: Dysuria, Frequency, Incontinence, Hematuria, Retention, Other Symptoms Hematologic: Denies: Bruising, Bleeding Excessively, Petecchia, Purpura, Enlarged Lymph Nodes, Other Hematologic Endocrine: Denies: Polydipsia, Polyphagia, Polyuria, Heat Intolerance, Cold Intolerance, Other Endocrine Sx Musculoskeletal: Reports: Foot Pain Neurological: Denies: Weakness, Numbness, Incoordination, Change in speech, Confusion, Seizures, Other Symptoms Psych: Denies: Mood Normal, Anxiety, Depression, Memory Issues, Thoughts of Self Harm, Anger, Thoughts of Harming Other, Other Psych Objective Physical Examination General Exam: Positive: Alert, Cooperative, No Acute Distress Eye Exam: Positive: PERRLA, Conjunctiva & lids normal ENT Exam: Positive: Atraumatic, Mucous membr. moist/pink Neck Exam: Positive: Supple Chest Exam: Positive: Clear to auscultation, Normal air movement Heart Exam: Positive: Rate Normal, Normal S1, Normal S2 Telemetry: Positive: No significant arrhythmia Abdomen Exam: Positive: Normal bowel sounds, Soft Extremity Exam: Positive: Other (. Left foot is cold on touch. There is no popliteal pulses to left popliteal artery) Skin Exam: Positive: Other skin issue (. As above) Neuro Exam: Negative: Normal Gait, Normal Speech, Strength at 5/5 X4 ext, Normal Tone, Sensation Intact, Cranial Nerves 3-12 NL, Reflexes 2+, Other Psych Exam: Negative: Mental status NL, Mood NL, Anxiety, Memory Intact, Oriented x 3, Other Assessment /Plan Problems (1) Vascular insufficiency of limb Status: Acute Problem Specific Plan: Consult Specialist (. Dr. Martin) Problem Text: - she had CT angio yesterday, which was reviewed by Dr. Martin. She will not have surgery for now. - Continue heparin gtt and resume diet. - Vascular surgery's rec is appreciated. (2) HTN (hypertension) Status: Chronic Problem Text: Stable Continue home meds (3) Type 2 diabetes mellitus Status: Chronic Problem Text: Fingerstick blood sugar every 6 hours with regular insulin coverage By mouth oral hypoglycemic agents (4) COPD (chronic obstructive pulmonary disease) Status: Chronic Problem Text: Under control (5) Tobacco abuse Status: Chronic Problem Text: Abstinent counseling done NicoDerm patch (6) Anemia Status: Chronic Problem Text: History of GI bleed in the past On anticoagulation H&H regularly , Transfuse as needed (7) Dyslipidemia Status: Chronic Problem Text: Continue Lipitor Plan/VTE VTE Prophylaxis Ordered?: Yes VS, I&O, 24H, Fishbone Vital Signs/I&O Vital Signs Date Time Temp Pulse Resp B/P (MAP) Pulse Ox O2 Delivery O2 Flow Rate FiO2 08/29/18 13:19 18 08/29/18 08:05 89 114/56 08/29/18 08:00 97.6 99 08/23/18 14:30 Room Air I&O- Last 24 Hours up to 6 AM 08/29/18 06:00 Intake Total 120 ml Output Total 1250 ml Balance -1130 ml Laboratory Data 24H LABS Laboratory Tests 2 08/28/18 17:53: Bedside Glucose (Misc Panel) 186H 08/28/18 20:11: Bedside Glucose (Misc Panel) 223H 08/29/18 05:42: Nucleated Red Blood Cells % (auto) 0.2H, Activated Partial Thromboplast Time 88.8H, Anion Gap 6L, Glomerular Filtration Rate > 60.0, Blood Urea Nitrogen 15, Creatinine 0.49L, Sodium Level 140, Potassium Level 3.5, Chloride Level 107, Carbon Dioxide Level 27, Calcium Level 7.8L, Aspartate Amino Transf (AST/SGOT) 14, Alanine Aminotransferase (ALT/SGPT) 14, Alkaline Phosphatase 121H, Total Bilirubin 0.3, Total Protein 5.7L, Albumin 2.2L, Albumin/Globulin Ratio 0.63L 08/29/18 11:44: Bedside Glucose (Misc Panel) 242H CBC/BMP Laboratory Tests 08/29/18 05:42 Red Blood Count 3.26 L, Mean Corpuscular Volume 88.0, Mean Corpuscular Hemoglobin 27.0, Mean Corpuscular Hemoglobin Concent 30.7 L, Red Cell Distribution Width 19.6 H, Calcium Level 7.8 L, Aspartate Amino Transf (AST/SGOT) 14, Alanine Aminotransferase (ALT/SGPT) 14, Alkaline Phosphatase 121 H, Total Bilirubin 0.3, Total Protein 5.7 L, Albumin 2.2 L Microbiology Microbiology 08/23/18 Blood Culture - Final, Complete NO GROWTH AFTER 5 DAYS 08/23/18 Blood Culture - Final, Complete NO GROWTH AFTER 5 DAYS RYAN MOCTEZUMA MD Aug 29, 2018 13:24
[2018-08-29] MEDS: HEPARIN DRIP 25,000 UNITS in APPROPRIATE DILUENT 1 EA IV SCH (14:32)
[2018-08-29 16:00] VITALS: BP 114/57
[2018-08-29 20:00] VITALS: BP 119/59
[2018-08-29] MEDS: ATORVASTATIN 20 MG TAB PO SCH (21:38)
[2018-08-30] VITALS (7 sets, daily range): BP systolic 110–137; BP diastolic 56–71
[2018-08-30] MEDS: NORCO, ANEXSIA 5/325MG TABLET (HYDROcodone/ACETAMINOPHEN) PO PRN ×4 (03:42→21:13)
[2018-08-30 05:45] LABS: HEMATOCRIT 28.7 % (36.0-47.0); HEMOGLOBIN 8.7 g/dl (12.0-15.5); MEAN CORPUSCULAR HEMOGLOBIN 27.2 pg (27.0-33.0); MEAN CORPUSCULAR HGB CONC 30.3 g/dl (32.0-36.5); MEAN CORPUSCULAR VOLUME 89.7 fl (80.0-96.0); PLATELET COUNT, AUTOMATED 485 10^3/uL (150-450); WHITE BLOOD COUNT 10.5 10^3/uL (4.0-10.0)
[2018-08-30] MEDS: SODIUM CHLORIDE 0.9% INJ 10 ML SYR IV SCH ×2 (05:49→17:34)
[2018-08-30 06:14] LABS: ALBUMIN 2.2 GM/DL (3.2-5.2); ALT/SGPT 17 U/L (12-78); BILIRUBIN,TOTAL 0.1 MG/DL (0.2-1.0); BLOOD UREA NITROGEN 13 MG/DL (7-18); CARBON DIOXIDE LEVEL 25 MEQ/L (21-32); CHLORIDE LEVEL 109 MEQ/L (98-107); CREATININE FOR GFR 0.61 MG/DL (0.55-1.30); GLOMERULAR FILTRATION RATE > 60.0 (>39); GLUCOSE, FASTING 160 MG/DL (70-100); POTASSIUM SERUM 3.5 MEQ/L (3.5-5.1); SODIUM LEVEL 142 MEQ/L (136-145); TOTAL PROTEIN 5.6 GM/DL (6.4-8.2)
[2018-08-30] MEDS: SUCRALFATE 1 GM TAB PO SCH ×4 (06:57→21:13)
[2018-08-30] MEDS: MORPHINE 4 MG/ML 1ML VIAL/SYRINGE (J2270) IV PRN ×2 (06:57→17:34)
[2018-08-30] MEDS: CLOPIDOGREL 75 MG TAB PO SCH (08:36)
[2018-08-30] MEDS: amLODIPine 5 MG TAB PO SCH (08:36)
[2018-08-30] MEDS: HumaLOG INSULIN (NovoLOG) PER UNIT SC SCH ×4 (08:36→21:00)
[2018-08-30] MEDS: PANTOPRAZOLE 40MG TAB (PROTONIX) PO SCH ×2 (08:36→21:12)
[2018-08-30] MEDS: FERROUS SULFATE 325MG TAB PO SCH ×2 (08:36→21:13)
--- NOTE | 2018-08-30 12:57 | IPNPDOC ---
Subjective Date Seen The patient was seen on 08/30/18. Subjective Chief Complaint/HPI The patient still complaints of throbbing pain. No other complaints. No fever, chills, nausea, vomiting, or diarrhea. General: Denies: ROS Unobtainable, Chills, Night Sweats, Fatigue, Malaise, Normal Appetite, Other Symptoms Constitutional: Denies: Chills, Fever, Malaise, Night Sweats, Weakness, Fatig ue, Weight Loss, Lethargy, Other Eyes: Denies: Pain, Vision change, Conjunctivae inflammation, Eyelid inflammation, Redness, Other ENT: Denies: Head Aches, Ear Pain, Dysphagia, Sinus Congestion, Post Nasal Drip, Sore Throat, Epistaxis, Other Symptoms Skin: Denies: Rash, Lesions, Jaundice, Bruising, Itching, Dry, Breakdown, Nail Changes, Other Pulmonary: Denies: Dyspnea, Cough, Pleuritic Chest Pain, Other Symptoms Cardiovascular: Denies: Chest Pain, Palpitations, Orthopnea, Paroxysmal Noc. Dyspnea, Edema, Lt Headedness, Other Symptoms Gastrointestinal: Denies: Nausea, Vomiting, Abdominal Pain, Diarrhea, Constipation, Melena, Hematochezia, Other Symptoms Genitourinary: Denies: Dysuria, Frequency, Incontinence, Hematuria, Retention, Other Symptoms Hematologic: Denies: Bruising, Bleeding Excessively, Petecchia, Purpura, Enlarged Lymph Nodes, Other Hematologic Endocrine: Denies: Polydipsia, Polyphagia, Polyuria, Heat Intolerance, Cold Intolerance, Other Endocrine Sx Musculoskeletal: Reports: Foot Pain Neurological: Denies: Weakness, Numbness, Incoordination, Change in speech, Confusion, Seizures, Other Symptoms Psych: Denies: Mood Normal, Anxiety, Depression, Memory Issues, Thoughts of Self Harm, Anger, Thoughts of Harming Other, Other Psych Objective Physical Examination General Exam: Positive: Alert, Cooperative, No Acute Distress Eye Exam: Positive: PERRLA, Conjunctiva & lids normal ENT Exam: Positive: Atraumatic, Mucous membr. moist/pink Neck Exam: Positive: Supple Chest Exam: Positive: Clear to auscultation, Normal air movement Heart Exam: Positive: Rate Normal, Normal S1, Normal S2 Telemetry: Positive: No significant arrhythmia Abdomen Exam: Positive: Normal bowel sounds, Soft Extremity Exam: Positive: Other (. Left foot is cold on touch. There is no popliteal pulses to left popliteal artery) Skin Exam: Positive: Other skin issue (. As above) Neuro Exam: Negative: Normal Gait, Normal Speech, Strength at 5/5 X4 ext, Normal Tone, Sensation Intact, Cranial Nerves 3-12 NL, Reflexes 2+, Other Psych Exam: Negative: Mental status NL, Mood NL, Anxiety, Memory Intact, Oriented x 3, Other Assessment /Plan Problems (1) Vascular insufficiency of limb Status: Acute Problem Specific Plan: Consult Specialist (. Dr. Martin) Problem Text: - she had CT angio two days ago, which was reviewed by Dr. Martin. She will not have surgery for now. - Continue heparin gtt and resume diet. - Vascular surgery's rec is appreciated. (2) HTN (hypertension) Status: Chronic Problem Text: Stable Continue home meds (3) Type 2 diabetes mellitus Status: Chronic Problem Text: Fingerstick blood sugar every 6 hours with regular insulin coverage By mouth oral hypoglycemic agents (4) COPD (chronic obstructive pulmonary disease) Status: Chronic Problem Text: Under control (5) Tobacco abuse Status: Chronic Problem Text: Abstinent counseling done NicoDerm patch (6) Anemia Status: Chronic Problem Text: History of GI bleed in the past On anticoagulation H&H regularly (7) Dyslipidemia Status: Chronic Problem Text: Continue Lipitor Plan/VTE VTE Prophylaxis Ordered?: Yes VS, I&O, 24H, Fishbone Vital Signs/I&O Vital Signs Date Time Temp Pulse Resp B/P (MAP) Pulse Ox O2 Delivery O2 Flow Rate FiO2 08/30/18 12:18 18 08/30/18 12:00 98.4 89 128/59 (82) 97 I&O- Last 24 Hours up to 6 AM 08/30/18 06:00 Intake Total 1020 ml Output Total 1450 ml Balance -430 ml Laboratory Data 24H LABS Laboratory Tests 2 08/29/18 17:05: Bedside Glucose (Misc Panel) 178H 08/29/18 20:27: Bedside Glucose (Misc Panel) 215H 08/30/18 05:25: Nucleated Red Blood Cells % (auto) 0.0, Activated Partial Thromboplast Time 94.3H, Anion Gap 8, Glomerular Filtration Rate > 60.0, Blood Urea Nitrogen 13, Creatinine 0.61, Sodium Level 142, Potassium Level 3.5, Chloride Level 109H, Carbon Dioxide Level 25, Calcium Level 8.0L, Aspartate Amino Transf (AST/SGOT) 20, Alanine Aminotransferase (ALT/SGPT) 17, Alkaline Phosphatase 115, Total Bilirubin 0.1#L, Total Protein 5.6L, Albumin 2.2L, Albumin/Globulin Ratio 0.65L 08/30/18 11:50: Bedside Glucose (Misc Panel) 181H CBC/BMP Laboratory Tests 08/30/18 05:25 Red Blood Count 3.20 L, Mean Corpuscular Volume 89.7, Mean Corpuscular Hemoglobin 27.2, Mean Corpuscular Hemoglobin Concent 30.3 L, Red Cell Distribution Width 20.0 H, Calcium Level 8.0 L, Aspartate Amino Transf (AST/SGOT) 20, Alanine Aminotransferase (ALT/SGPT) 17, Alkaline Phosphatase 115, Total Bilirubin 0.1 #L, Total Protein 5.6 L, Albumin 2.2 L Microbiology Microbiology 08/23/18 Blood Culture - Final, Complete NO GROWTH AFTER 5 DAYS 08/23/18 Blood Culture - Final, Complete NO GROWTH AFTER 5 DAYS RYAN MOCTEZUMA MD Aug 30, 2018 12:57
[2018-08-30] MEDS: HEPARIN DRIP 25,000 UNITS in APPROPRIATE DILUENT 1 EA IV SCH (15:41)
[2018-08-30] MEDS: ATORVASTATIN 20 MG TAB PO SCH (21:13)
[2018-08-30] MEDS ORDERED: MORPHINE 4 MG/ML 1ML VIAL/SYRINGE (J2270) IV ONE (22:30)
[2018-08-31 04:00] VITALS: BP 121/58
[2018-08-31] MEDS: NORCO, ANEXSIA 5/325MG TABLET (HYDROcodone/ACETAMINOPHEN) PO PRN ×4 (04:29→20:29)
[2018-08-31 05:10] LABS: HEMATOCRIT 29.9 % (36.0-47.0); HEMOGLOBIN 8.8 g/dl (12.0-15.5); MEAN CORPUSCULAR HEMOGLOBIN 26.8 pg (27.0-33.0); MEAN CORPUSCULAR HGB CONC 29.4 g/dl (32.0-36.5); MEAN CORPUSCULAR VOLUME 91.2 fl (80.0-96.0); PLATELET COUNT, AUTOMATED 510 10^3/uL (150-450); RED BLOOD COUNT 3.28 10^6/uL (4.00-5.40)
[2018-08-31 05:40] LABS: ALBUMIN 2.1 GM/DL (3.2-5.2); ALT/SGPT 19 U/L (12-78); BILIRUBIN,TOTAL 0.2 MG/DL (0.2-1.0); BLOOD UREA NITROGEN 13 MG/DL (7-18); CALCIUM LEVEL 7.5 MG/DL (8.8-10.2); CARBON DIOXIDE LEVEL 25 MEQ/L (21-32); CHLORIDE LEVEL 110 MEQ/L (98-107); CREATININE FOR GFR 0.67 MG/DL (0.55-1.30); GLOMERULAR FILTRATION RATE > 60.0 (>39); GLUCOSE, FASTING 134 MG/DL (70-100); POTASSIUM SERUM 3.6 MEQ/L (3.5-5.1); SODIUM LEVEL 146 MEQ/L (136-145); TOTAL PROTEIN 5.6 GM/DL (6.4-8.2)
[2018-08-31] MEDS: SODIUM CHLORIDE 0.9% INJ 10 ML SYR IV SCH ×2 (05:43→17:56)
[2018-08-31] MEDS: SUCRALFATE 1 GM TAB PO SCH ×4 (07:30→20:28)
[2018-08-31] MEDS: HumaLOG INSULIN (NovoLOG) PER UNIT SC SCH ×4 (07:30→20:28)
[2018-08-31 08:00] VITALS: BP 124/70
[2018-08-31] MEDS: MORPHINE 4 MG/ML 1ML VIAL/SYRINGE (J2270) IV PRN ×2 (08:22→14:34)
[2018-08-31] MEDS: SODIUM CHLORIDE 0.9% INJ 10 ML SYR IV PRN ×2 (08:23→14:35)
[2018-08-31] MEDS: CLOPIDOGREL 75 MG TAB PO SCH ×2 (09:00→11:06)
[2018-08-31] MEDS: amLODIPine 5 MG TAB PO SCH ×2 (09:00→11:06)
[2018-08-31] MEDS: FERROUS SULFATE 325MG TAB PO SCH ×3 (09:00→20:28)
[2018-08-31] MEDS: PANTOPRAZOLE 40MG TAB (PROTONIX) PO SCH ×3 (09:00→20:28)
--- NOTE | 2018-08-31 11:03 | IPNPDOC ---
Subjective Date Seen The patient was seen on 08/31/18. Subjective Chief Complaint/HPI She still has throbbing pain in the toe. No other complaints. She is very tired of staying in the hospital for many days. General: Reports: Fatigue Constitutional: Denies: Chills, Fever, Malaise, Night Sweats, Weakness, Fatigue, Weight Loss, Lethargy, Other Eyes: Denies: Pain, Vision change, Conjunctivae inflammation, Eyelid inflammation, Redness, Other ENT: Denies: Head Aches, Ear Pain, Dysphagia, Sinus Congestion, Post Nasal Drip, Sore Throat, Epistaxis, Other Symptoms Skin: Denies: Rash, Lesions, Jaundice, Bruising, Itching, Dry, Breakdown, Nail Changes, Other Pulmonary: Denies: Dyspnea, Cough, Pleuritic Chest Pain, Other Symptoms Cardiovascular: Denies: Chest Pain, Palpitations, Orthopnea, Paroxysmal Noc. Dyspnea, Edema, Lt Headedness, Other Symptoms Gastrointestinal: Denies: Nausea, Vomiting, Abdominal Pain, Diarrhea, Constipation, Melena, Hematochezia, Other Symptoms Genitourinary: Denies: Dysuria, Frequency, Incontinence, Hematuria, Retention, Other Symptoms Hematologic: Denies: Bruising, Bleeding Excessively, Petecchia, Purpura, Enlarged Lymph Nodes, Other Hematologic Endocrine: Denies: Polydipsia, Polyphagia, Polyuria, Heat Intolerance, Cold Intolerance, Other Endocrine Sx Musculoskeletal: Reports: Foot Pain Neurological: Denies: Weakness, Numbness, Incoordination, Change in speech, Confusion, Seizures, Other Symptoms Objective Physical Examination General Exam: Positive: Alert, Cooperative, No Acute Distress Eye Exam: Positive: PERRLA, Conjunctiva & lids normal ENT Exam: Positive: Atraumatic, Mucous membr. moist/pink Neck Exam: Positive: Supple Chest Exam: Positive: Clear to auscultation, Normal air movement Heart Exam: Positive: Rate Normal, Normal S1, Normal S2 Telemetry: Positive: No significant arrhythmia Abdomen Exam: Positive: Normal bowel sounds, Soft Extremity Exam: Positive: Other (. Left foot is cold on touch. There is no popliteal pulses to left popliteal artery) Skin Exam: Positive: Other skin issue (. As above) Neuro Exam: Negative: Normal Gait, Normal Speech, Strength at 5/5 X4 ext, Normal Tone, Sensation Intact, Cranial Nerves 3-12 NL, Reflexes 2+, Other Psych Exam: Negative: Mental status NL, Mood NL, Anxiety, Memory Intact, Oriented x 3, Other Assessment /Plan Problems (1) Vascular insufficiency of limb Status: Acute Problem Specific Plan: Consult Specialist (. Dr. Martin) Problem Text: - Per Dr. Martin, she will have an IR procedure tomorrow morning to open up a thrombosis. And then, she will have anti-coagulation for 24-48 hrs, and possible surgery. - Continue heparin gtt and resume diet. - Vascular surgery's rec is appreciated. (2) HTN (hypertension) Status: Chronic Problem Text: Stable Continue home meds (3) Type 2 diabetes mellitus Status: Chronic Problem Text: Fingerstick blood sugar every 6 hours with regular insulin coverage By mouth oral hypoglycemic agents (4) COPD (chronic obstructive pulmonary disease) Status: Chronic Problem Text: Under control (5) Tobacco abuse Status: Chronic Problem Text: Abstinent counseling done NicoDerm patch (6) Anemia Status: Chronic Problem Text: History of GI bleed in the past On anticoagulation H&H regularly # Moderate protein calorie malnutrition - Continue to encourage PO intake (7) Dyslipidemia Status: Chronic Problem Text: Continue Lipitor Plan/VTE VTE Prophylaxis Ordered?: Yes VS, I&O, 24H, Fishbone Vital Signs/I&O Vital Signs Date Time Temp Pulse Resp B/P (MAP) Pulse Ox O2 Delivery O2 Flow Rate FiO2 08/31/18 09:00 87 124/70 08/31/18 08:32 16 08/31/18 08:00 98.2 98 I&O- Last 24 Hours up to 6 AM 08/31/18 05:59 Intake Total 990 ml Output Total 150 ml Balance 840 ml Laboratory Data 24H LABS Laboratory Tests 2 08/30/18 11:50: Bedside Glucose (Misc Panel) 181H 08/30/18 17:40: Bedside Glucose (Misc Panel) 263H 08/30/18 21:12: Bedside Glucose (Misc Panel) 143H 08/31/18 04:52: Nucleated Red Blood Cells % (auto) 0.0, Activated Partial Thromboplast Time 109.0H, Anion Gap 11, Glomerular Filtration Rate > 60.0, Blood Urea Nitrogen 13, Creatinine 0.67, Sodium Level 146H, Potassium Level 3.6, Chloride Level 110H, Carbon Dioxide Level 25, Calcium Level 7.5L, Aspartate Amino Transf (AST/SGOT) 17, Alanine Aminotransferase (ALT/SGPT) 19, Alkaline Phosphatase 128H, Total Bilirubin 0.2#, Total Protein 5.6L, Albumin 2.1L, Albumin/Globulin Ratio 0.60L CBC/BMP Laboratory Tests 08/31/18 04:52 Red Blood Count 3.28 L, Mean Corpuscular Volume 91.2, Mean Corpuscular Hemoglobin 26.8 L, Mean Corpuscular Hemoglobin Concent 29.4 L, Red Cell Distribution Width 20.7 H, Calcium Level 7.5 L, Aspartate Amino Transf (AST/SGOT ) 17, Alanine Aminotransferase (ALT/SGPT) 19, Alkaline Phosphatase 128 H, Total Bilirubin 0.2 #, Total Protein 5.6 L, Albumin 2.1 L Microbiology Microbiology 08/23/18 Blood Culture - Final, Complete NO GROWTH AFTER 5 DAYS 08/23/18 Blood Culture - Final, Complete NO GROWTH AFTER 5 DAYS RYAN MOCTEZUMA MD Aug 31, 2018 11:03
[2018-08-31 12:00] VITALS: BP 127/59
--- NOTE | 2018-08-31 15:11 | IPNPDOC ---
Date Seen The patient was seen on 08/31/18. Progress Note Vascular Surgery. Dr Martin. 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 Revision of Ax Bifem graft 08/16/[address] Martin discharged 08/21/18. Patient presented in ER 08/23/18 with chief complaints of cold left foot admission was arranged, vascular surgery consulted. The pt states she is still having pain in the left foot. Denies any fevers, chills, weakness, fatigue, Headache, Chest Pain, Shortness of breath, cough, palpitations, abdominal pain, N/V/D or changes in bowel or bladder habits. PAST MEDICAL HISTORY: Hypertension. Hyperlipidemia. Type 2 diabetes. COPD. ERCP June 2017 cholangitis/biliary stent. H/O upper and lower GI bleed. EGD on 04/22/2017 that showed multiple (more than 10) small angioectasia of the duodenum treated with argon-beam coagulation. Recent admission for UGIB, EGD 07/10/18 Three non-bleeding angioectasias in the stomach. Treated with argon beam coagulation. A few non-bleeding angioectasias in the duodenum. Treated with argon beam coagulation. Patent biliary stent. chronic anemia history of vascular disease status post bilateral common iliac artery and angioplasty and stenting. H/O DVT of the left lower extremity and was anticoagulated on warfarin until her admission for GI Bleeding March 2017. PAST SURGICAL HISTORY: Tonsillectomy. Bilateral common iliac artery angioplasty stenting. EGDs and colonoscopies. 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 Treated with argon beam coagulation. A few non-bleeding angioectasias in the duodenum. Treated with argon beam coagulation. Patent biliary stent. ERCP as above. Right-sided axillofemoral and [id number] fem/fem bypass undetermined date. PE: GEN: 78yoF, appears stated age. No acute distress. Alert and oriented x 3. HEENT: Normocephalic, atraumatic. Sclera are nonicteric. Conjunctiva without injection. Moist mucous membranes. CHEST: Regular rate and rhythm, +S1, +S2 LUNGS: Clear to auscultation bilaterally. No wheezes, rales, or rhonchi. Breath ing appears symmetric and easy. ABD: Round, soft, non-tender, non-distended. +Bowel sounds throughout. No rebound or guarding. EXT: No lower extremity edema appreciated. Toes and distal 1/3 left foot are discolored, cool to touch this am. Left DP/PT unable to obtain with doppler. Rt foot with palpable DP and biphasic PT with doppler. SKIN: No rashes. NEURO: Alert and oriented x 3. Cranial nerves III-XII are intact. No focal deficits appreciated. A&P: H/o Right-sided axillofemoral and [id number] fem/fem bypass. S/P revision Rt Ax Bifem bypass as per Dr Martin 08/16/18. The pt is well known to Dr Martin. Continue Heparin IV. The pt is reviewed and discussed with Dr Martin, Plan for angio and possible thrombolysis 09/01/[address] Martin. monitor. H/O upper and lower GI bleed. EGD on 04/22/2017 that showed multiple (more than 10) small angioectasia of the duodenum treated with argon-beam coagulation. Recent admission for UGIB, EGD 07/10 Three non-bleeding angioectasias in the stomach. Treated with argon beam coagulation. A few non-bleeding angioectasias in the duodenum. Treated with argon beam coagulation. Patent biliary stent. Follows with Dr Santoyo. Continue PPI BID Continue Carafate AC/HS. chronic anemia. Monitor CBC. Hgb 8.8 Fe supplement BID. FOB pending. Monitor for bleeding. Tobacco use. Reinforced cessation. VS, I&O, 24H, Patrickbone Vital Signs/I&O Vital Signs Date Time Temp Pulse Resp B/P (MAP) Pulse Ox O2 Delivery O2 Flow Rate FiO2 08/31/18 14:34 16 08/31/18 12:00 97.2 90 127/59 (81) 100 I&O- Last 24 Hours up to 6 AM 08/31/18 06:00 Intake Total 750 ml Output Total 300 ml Balance 450 ml Laboratory Data 24H LABS Laboratory Tests 2 08/30/18 17:40: Bedside Glucose (Misc Panel) 263H 08/30/18 21:12: Bedside Glucose (Misc Panel) 143H 08/31/18 04:52: Nucleated Red Blood Cells % (auto) 0.0, Activated Partial Thromboplast Time 109.0H, Anion Gap 11, Glomerular Filtration Rate > 60.0, Blood Urea Nitrogen 13, Creatinine 0.67, Sodium Level 146H, Potassium Level 3.6, Chloride Level 110H, Carbon Dioxide Level 25, Calcium Level 7.5L, Aspartate Amino Transf (AST/SGOT) 17, Alanine Aminotransferase (ALT/SGPT) 19, Alkaline Phosphatase 128H, Total Bilirubin 0.2#, Total Protein 5.6L, Albumin 2.1L, Albumin/Globulin Ratio 0.60L 08/31/18 11:39: Activated Partial Thromboplast Time 81.2H 08/31/18 11:42: Bedside Glucose (Misc Panel) 164H CBC/BMP Laboratory Tests 08/31/18 04:52 Red Blood Count 3.28 L, Mean Corpuscular Volume 91.2, Mean Corpuscular Hemoglobin 26.8 L, Mean Corpuscular Hemoglobin Concent 29.4 L, Red Cell Distribution Width 20.7 H, Calcium Level 7.5 L, Aspartate Amino Transf (AST/SGOT) 17, Alanine Aminotransferase (ALT/SGPT) 19, Alkaline Phosphatase 128 H, Total Bilirubin 0.2 #, Total Protein 5.6 L, Albumin 2.1 L Microbiology Microbiology 08/23/18 Blood Culture - Final, Complete NO GROWTH AFTER 5 DAYS 08/23/18 Blood Culture - Final, Complete NO GROWTH AFTER 5 DAYS Sunshine Allison Aug 31, 2018 15:11
[2018-08-31] MEDS: HEPARIN DRIP 25,000 UNITS in APPROPRIATE DILUENT 1 EA IV SCH (15:43)
[2018-08-31 16:00] VITALS: BP 146/63
[2018-08-31 20:00] VITALS: BP 114/53
[2018-08-31] MEDS: ATORVASTATIN 20 MG TAB PO SCH (20:28)
[2018-08-31 23:59] VITALS: BP 135/61
[2018-09-01] VITALS (7 sets, daily range): BP systolic 115–169; BP diastolic 58–70
[2018-09-01] MEDS: NORCO, ANEXSIA 5/325MG TABLET (HYDROcodone/ACETAMINOPHEN) PO PRN ×6 (00:36→22:07)
[2018-09-01] MEDS: SODIUM CHLORIDE 0.9% INJ 10 ML SYR IV SCH ×2 (05:31→17:33)
[2018-09-01 06:43] LABS: HEMATOCRIT 30.4 % (36.0-47.0); HEMOGLOBIN 9.1 g/dl (12.0-15.5); MEAN CORPUSCULAR HEMOGLOBIN 27.2 pg (27.0-33.0); MEAN CORPUSCULAR HGB CONC 29.9 g/dl (32.0-36.5); PLATELET COUNT, AUTOMATED 512 10^3/uL (150-450); RED BLOOD COUNT 3.34 10^6/uL (4.00-5.40); WHITE BLOOD COUNT 8.7 10^3/uL (4.0-10.0)
[2018-09-01 07:13] LABS: ALBUMIN 2.1 GM/DL (3.2-5.2); ALT/SGPT 20 U/L (12-78); BILIRUBIN,TOTAL 0.2 MG/DL (0.2-1.0); BLOOD UREA NITROGEN 14 MG/DL (7-18); CALCIUM LEVEL 8.1 MG/DL (8.8-10.2); CARBON DIOXIDE LEVEL 23 MEQ/L (21-32); CHLORIDE LEVEL 111 MEQ/L (98-107); CREATININE FOR GFR 0.59 MG/DL (0.55-1.30); GLOMERULAR FILTRATION RATE > 60.0 (>39); GLUCOSE, FASTING 125 MG/DL (70-100); POTASSIUM SERUM 3.4 MEQ/L (3.5-5.1); SODIUM LEVEL 142 MEQ/L (136-145); TOTAL PROTEIN 5.6 GM/DL (6.4-8.2)
[2018-09-01] MEDS: HumaLOG INSULIN (NovoLOG) PER UNIT SC SCH ×4 (07:59→19:56)
[2018-09-01] MEDS: SUCRALFATE 1 GM TAB PO SCH ×4 (07:59→19:55)
[2018-09-01] MEDS: PANTOPRAZOLE 40MG TAB (PROTONIX) PO SCH ×2 (09:16→19:56)
[2018-09-01] MEDS: FERROUS SULFATE 325MG TAB PO SCH ×2 (09:16→19:55)
[2018-09-01] MEDS: amLODIPine 5 MG TAB PO SCH (09:17)
[2018-09-01] MEDS: CLOPIDOGREL 75 MG TAB PO SCH (09:23)
--- NOTE | 2018-09-01 10:33 | IPNPDOC ---
Date Seen The patient was seen on 09/01/18. Progress Note Vascular Surgery. Dr Martin. 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 Revision of Ax Bifem graft 08/16/[address] Martin discharged 08/21/18. Patient presented in ER 08/23/18 with chief complaints of cold left foot admission was arranged, vascular surgery consulted. The pt states she is still having pain in the left foot, states unchanged. Denies any fevers, chills, weakness, fatigue, Headache, Chest Pain, Shortness of breath, cough, palpitations, abdominal pain, N/V/D or changes in bowel or bladder habits. PAST MEDICAL HISTORY: Hypertension. Hyperlipidemia. Type 2 diabetes. COPD. ERCP June 2017 cholangitis/biliary stent. H/O upper and lower GI bleed. EGD on 04/22/2017 that showed multiple (more than 10) small angioectasia of the duodenum treated with argon-beam coagulation. Recent admission for UGIB, EGD 07/10/18 Three non-bleeding angioectasias in the stomach. Treated with argon beam coagulation. A few non-bleeding angioectasias in the duodenum. Treated with argon beam coagulation. Patent biliary stent. chronic anemia history of vascular disease status post bilateral common iliac artery and angioplasty and stenting. H/O DVT of the left lower extremity and was anticoagulated on warfarin until her admission for GI Bleeding March 2017. PAST SURGICAL HISTORY: Tonsillectomy. Bilateral common iliac artery angioplasty stenting. EGDs and colonoscopies. 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 Treated with argon beam coagulation. A few non-bleeding angioectasias in the duodenum. Treated with argon beam coagulation. Patent biliary stent. ERCP as above. Right-sided axillofemoral and [id number] fem/fem bypass undetermined date. PE: GEN: [id number], appears stated age. No acute distress. Alert and oriented x 3. HEENT: Normocephalic, atraumatic. Sclera are nonicteric. Conjunctiva without injection. Moist mucous membranes. CHEST: Regular rate and rhythm, +S1, +S2 LUNGS: Clear to auscultation bilaterally. No wheezes, rales, or rhonchi. Breathing appears symmetric and easy. ABD: Round, soft, non-tender, non-distended. +Bowel sounds throughout. No rebound or guarding. EXT: No lower extremity edema appreciated. Toes and distal 1/3 left foot are discolored, cool to touch this am. Left DP/PT unable to obtain with doppler. Rt foot with palpable DP and biphasic PT with doppler. SKIN: No rashes. NEURO: Alert and oriented x 3. Cranial nerves III-XII are intact. No focal deficits appreciated. A&P: H/o Right-sided axillofemoral and [id number]-or-cryd fem/fem bypass. S/P revision Rt Ax Bifem bypass as per Dr Martin 08/16/18. The pt is well known to Dr Martin. Continue Heparin IV. The pt is reviewed and discussed with Dr Martin, Plan for angio and possible thrombolysis today as per Dr Martin. monitor. H/O upper and lower GI bleed. EGD on 04/22/2017 that showed multiple (more than 10) small angioectasia of the duodenum treated with argon-beam coagulation. Recent admission for UGIB, EGD 07/10 Three non-bleeding angioectasias in the stomach. Treated with argon beam coagulation. A few non-bleeding angioectasias in the duodenum. Treated with argon beam coagulation. Patent biliary stent. Follows with Dr Santoyo. Continue PPI BID Continue Carafate AC/HS. chronic anemia. Monitor CBC. Hgb 9.1 Fe supplement BID. FOB pending. Monitor for bleeding. Tobacco use. Reinforced cessation. VS, I&O, 24H, Fishbone Vital Signs/I&O Vital Signs Date Time Temp Pulse Resp B/P (MAP) Pulse Ox O2 Delivery O2 Flow Rate FiO2 09/01/18 09:17 115/58 09/01/18 08:00 97.7 81 18 98 I&O- Last 24 Hours up to 6 AM 09/01/18 05:59 Intake Total 499 ml Output Total 650 ml Balance -151 ml Laboratory Data 24H LABS Laboratory Tests 2 08/31/18 11:39: Activated Partial Thromboplast Time 81.2H 08/31/18 11:42: Bedside Glucose (Misc Panel) 164H 08/31/18 16:28: Bedside Glucose (Misc Panel) 172H 08/31/18 17:44: Activated Partial Thromboplast Time 77.9H 08/31/18 20:22: Bedside Glucose (Misc Panel) 129H 09/01/18 06:25: Nucleated Red Blood Cells % (auto) 0.0, Activated Partial Thromboplast Time 76.0H, Anion Gap 8, Glomerular Filtration Rate > 60.0, Blood Urea Nitrogen 14, Creatinine 0.59, Sodium Level 142, Potassium Level 3.4L, Chloride Level 111H, Carbon Dioxide Level 23, Calcium Level 8.1L, Aspartate Amino Transf (AST/SGOT) 16, Alanine Aminotransferase (ALT/SGPT) 20, Alkaline Phosphatase 132H, Total Bilirubin 0.2, Total Protein 5.6L, Albumin 2.1L, Albumin/Globulin Ratio 0.60L CBC/BMP Laboratory Tests 09/01/18 06:25 Red Blood Count 3.34 L, Mean Corpuscular Volume 91.0, Mean Corpuscular Hemoglobin 27.2, Mean Corpuscular Hemoglobin Concent 29.9 L, Red Cell Distribution Width 20.8 H, Calcium Level 8.1 L, Aspartate Amino Transf (AST/SGOT) 16, Alanine Aminotransferase (ALT/SGPT) 20, Alkaline Phosphatase 132 H, Total Bilirubin 0.2, Total Protein 5.6 L, Albumin 2.1 L Microbiology Microbiology 08/23/18 Blood Culture - Final, Complete NO GROWTH AFTER 5 DAYS 08/23/18 Blood Culture - Final, Complete NO GROWTH AFTER 5 DAYS Sunshine Allison Sep 01, 2018 10:33
[2018-09-01] MEDS: MORPHINE 4 MG/ML 1ML VIAL/SYRINGE (J2270) IV PRN ×3 (11:37→20:07)
[2018-09-01] MEDS ORDERED: LIDOCAINE 2% MDV 20 ML VIAL As Ordered ONE (15:01)
[2018-09-01] MEDS ORDERED: MIDAZOLAM INJ 2 MG/2 ML VIAL (J2250) As Ordered ONE (15:01)
[2018-09-01] MEDS ORDERED: BUPIVACAINE HCL 0.5% 10 ML VIAL As Ordered ONE (15:01)
[2018-09-01] MEDS ORDERED: fentaNYL 100 MCG/2 ML INJECTION (J3010) As Ordered ONE (15:01)
[2018-09-01] MEDS ORDERED: ISOVUE-300 61% 50ML VIAL (Q9967) As Ordered ONE (15:02)
[2018-09-01] MEDS ORDERED: diphenhydrAMINE INJ 50MG/ML VIAL (J1200) As Ordered ONE (15:07)
[2018-09-01] MEDS ORDERED: HEPARIN 1,000 UNITS/ML 10ML VIAL (FOR RADIOLOGY& DIALYSIS ONLY) As Ordered ONE (15:08)
[2018-09-01] MEDS ORDERED: MORPHINE 10 MG/ML 1ML VIAL (J2270) As Ordered ONE (15:23)
[2018-09-01] MEDS ORDERED: ALTEPLASE RECOMBINANT 25 MG in NS 225 ML IV SCH (17:00)
--- NOTE | 2018-09-01 17:26 | IPNPDOC ---
Date Seen The patient was seen on 09/01/18. Progress Note SUBJECTIVE: Patient continues to complain of pain in her left great toe otherwise patient denies chest pain, shortness breath, nausea, vomiting, fevers, chills OBJECTIVE PHYSICAL EXAMINATION: VITAL SIGNS: Please see below. GENERAL: Pleasant elderly frail woman sitting up in bed awake alert oriented speaking in complete sentences no acute distress HEENT: Moist mucous membranes no elevation and CVP CARDIOVASCULAR: S1 S2 regular no additional heart sounds appreciated. RESPIRATORY: Clear to auscultation bilaterally. ABDOMINAL: Bowel sounds present abdomen soft and nontender EXTREMITIES: No clubbing cyanosis or edema, there is some increased erythema of the left great toe but it is warm she has good range of motion and there is tenderness to palpation NEUROLOGICAL: Spontaneously moves all 4 extremities cranial 2 through 12 grossly intact no gross focal deficits appreciated PSYCHOLOGICAL: Appropriate LABORATORY DATA, MICROBIOLOGY: Please see below. IMAGING STUDIES: Chest x-ray:No acute cardiopulmonary process appreciated. Previously identified lung nodule in the left upper lung zone cannot be excluded. 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 Patent right axillofemoral bypass graft. Occlusion of femoral to femoral bypass graft. Metallic domo overlie the right lower quadrant, overlying a portion of the occluded graft. There is some air and fluid surrounding the occluded graft. I cannot exclude a developing abscess and clinical correlation and followup is recommended. Patent flow is seen through the right lower extremity as discussed above. Collateral flow is seen via multiple tiny collateral vessels in the left thigh reconstituting portions of the trifurcation arteries in the left calf. ASSESSMENT AND PLAN: This is a 78-year-old female with peripheral arterial disease. PROBLEMS: 1. Peripheral arterial disease: Vascular surgery greatly appreciated. Patient has history of known right-sided axillofemoral right to left femorofemoral bypass, status post revision right aortic bifemoral bypass. She does have significant pain in the lower extremity she is continued on a heparin drip the plan is for possible angiogram and thrombolysis today. Continue with pain medication as needed. Continue with Plavix 2. History of GI bleed: No evidence of any ongoing bleeding at this time she did have endoscopy in June of this year which revealed angiectasia was treated with argon beam coagulation's, she is continued on PPI as well as Carafate. 3. Chronic anemia: Likely secondary to the above in addition with chronic disease related to her peripheral arterial disease potentially. Continue with iron supplementation. Tolerating anticoagulation 4. Tobacco abuse: Cessation counseling provided 5. Dyslipidemia: Continue with statin 6. Diabetes: Continue with insulin sliding scale 7. HTN: Controlled con't with amlodipine 8. COPD: Stable at her baseline after status 9. Moderate protein calorie malnutrition: Encouraged by mouth intake DVT prophylaxis: Heparin drip DISPOSITION: Pending vascular procedure. VS, I&O, 24H, Fishbone Vital Signs/I&O Vital Signs Date Time Temp Pulse Resp B/P (MAP) Pulse Ox O2 Delivery O2 Flow Rate FiO2 09/01/18 15:30 16 09/01/18 12:00 98.2 72 149/70 (96) 98 I&O- Last 24 Hours up to 6 AM 09/01/18 06:00 Intake Total 499 ml Output Total 500 ml Balance -1 ml Laboratory Data 24H LABS Laboratory Tests 2 08/31/18 17:44: Activated Partial Thromboplast Time 77.9H 08/31/18 20:22: Bedside Glucose (Misc Panel) 129H 09/01/18 06:25: Activated Partial Thromboplast Time 76.0H, Nucleated Red Blood Cells % (auto) 0.0, Anion Gap 8, Glomerular Filtration Rate > 60.0, Blood Urea Nitrogen 14, Creatinine 0.59, Sodium Level 142, Potassium Level 3.4L, Chloride Level 111H, Carbon Dioxide Level 23, Calcium Level 8.1L, Aspartate Amino Transf (AST/SGOT) 16, Alanine Aminotransferase (ALT/SGPT) 20, Alkaline Phosphatase 132H, Total Bilirubin 0.2, Total Protein 5.6L, Albumin 2.1L, Albumin/Globulin Ratio 0.60L 09/01/18 11:45: Bedside Glucose (Misc Panel) 138H CBC/BMP Laboratory Tests 09/01/18 06:25 Red Blood Count 3.34 L, Mean Corpuscular Volume 91.0, Mean Corpuscular Hemoglobin 27.2, Mean Corpuscular Hemoglobin Concent 29.9 L, Red Cell Distribution Width 20.8 H, Calcium Level 8.1 L, Aspartate Amino Transf (AST/SGOT) 16, Alanine Aminotransferase (ALT/SGPT) 20, Alkaline Phosphatase 132 H, Total Bilirubin 0.2, Total Protein 5.6 L, Albumin 2.1 L Microbiology Microbiology 08/23/18 Blood Culture - Final, Complete NO GROWTH AFTER 5 DAYS 08/23/18 Blood Culture - Final, Complete NO GROWTH AFTER 5 DAYS BETTY MERCADO MD Sep 01, 2018 17:26
[2018-09-01] MEDS: HEPARIN DRIP 25,000 UNITS in APPROPRIATE DILUENT 1 EA IV SCH (17:34)
[2018-09-01] MEDS: ATORVASTATIN 20 MG TAB PO SCH (19:55)
[2018-09-01 22:11] LABS: HEMATOCRIT 30.1 % (36.0-47.0); HEMOGLOBIN 9.2 g/dl (12.0-15.5)
[2018-09-01 22:27] LABS: PARTIAL THROMBOPLASTIN TIME 92.4 SECONDS (25.4-37.6)
[2018-09-02] VITALS (19 sets, daily range): BP systolic 96–141; BP diastolic 53–79
[2018-09-02] MEDS: MORPHINE 4 MG/ML 1ML VIAL/SYRINGE (J2270) IV PRN ×3 (01:15→22:44)
[2018-09-02 04:19] LABS: HEMATOCRIT 28.5 % (36.0-47.0); HEMOGLOBIN 8.6 g/dl (12.0-15.5); MEAN CORPUSCULAR HEMOGLOBIN 27.4 pg (27.0-33.0); MEAN CORPUSCULAR HGB CONC 30.2 g/dl (32.0-36.5); MEAN CORPUSCULAR VOLUME 90.8 fl (80.0-96.0); RED BLOOD COUNT 3.14 10^6/uL (4.00-5.40)
[2018-09-02 04:21] LABS: PLATELET COUNT, AUTOMATED 351 10^3/uL (150-450)
[2018-09-02 04:32] LABS: PARTIAL THROMBOPLASTIN TIME 98.7 SECONDS (25.4-37.6)
[2018-09-02 04:56] LABS: ALBUMIN 2.1 GM/DL (3.2-5.2); ALT/SGPT 17 U/L (12-78); BILIRUBIN,TOTAL 0.2 MG/DL (0.2-1.0); BLOOD UREA NITROGEN 16 MG/DL (7-18); CALCIUM LEVEL 7.8 MG/DL (8.8-10.2); CARBON DIOXIDE LEVEL 26 MEQ/L (21-32); CHLORIDE LEVEL 111 MEQ/L (98-107); CREATININE FOR GFR 0.59 MG/DL (0.55-1.30); GLOMERULAR FILTRATION RATE > 60.0 (>39); GLUCOSE, FASTING 122 MG/DL (70-100); POTASSIUM SERUM 3.3 MEQ/L (3.5-5.1); SODIUM LEVEL 144 MEQ/L (136-145)
[2018-09-02] MEDS: SODIUM CHLORIDE 0.9% INJ 10 ML SYR IV SCH ×2 (06:07→17:48)
[2018-09-02] MEDS: NORCO, ANEXSIA 5/325MG TABLET (HYDROcodone/ACETAMINOPHEN) PO PRN ×3 (06:40→20:28)
[2018-09-02] MEDS: HumaLOG INSULIN (NovoLOG) PER UNIT SC SCH ×4 (07:30→20:30)
[2018-09-02 07:57] LABS: MAGNESIUM LEVEL 1.8 MG/DL (1.8-2.4)
[2018-09-02] MEDS: CLOPIDOGREL 75 MG TAB PO SCH (08:48)
[2018-09-02] MEDS: amLODIPine 5 MG TAB PO SCH (08:48)
[2018-09-02] MEDS: SUCRALFATE 1 GM TAB PO SCH ×4 (08:48→20:27)
[2018-09-02] MEDS: PANTOPRAZOLE 40MG TAB (PROTONIX) PO SCH ×2 (08:48→20:28)
[2018-09-02] MEDS: FERROUS SULFATE 325MG TAB PO SCH ×2 (08:48→20:56)
--- NOTE | 2018-09-02 10:34 | IPNPDOC ---
Date Seen The patient was seen on 09/02/18. Progress Note Vascular Surgery. Dr Martin. 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 Revision of Ax Bifem graft 08/16/[address] Martin discharged 08/21/18. Patient presented in ER 08/23/18 with chief complaints of cold left foot admission was arranged, vascular surgery consulted. The pt states pain in the left foot is less intense this AM. Denies any fevers, chills, weakness, fatigue, Headache, Chest Pain, Shortness of breath, cough, palpitations, abdominal pain, N/V/D or changes in bowel or bladder habits. PAST MEDICAL HISTORY: Hypertension. Hyperlipidemia. Type 2 diabetes. COPD. ERCP June 2017 cholangitis/biliary stent. H/O upper and lower GI bleed. EGD on 04/22/2017 that showed multiple (more than 10) small angioectasia of the duodenum treated with argon-beam coagulation. Recent admission for UGIB, EGD 07/10/18 Three non-bleeding angioectasias in the stomach. Treated with argon beam coagulation. A few non-bleeding angioectasias in the duodenum. Treated with argon beam coagulation. Patent biliary stent. chronic anemia history of vascular disease status post bilateral common iliac artery and angioplasty and stenting. H/O DVT of the left lower extremity and was anticoagulated on warfarin until her admission for GI Bleeding March 2017. PAST SURGICAL HISTORY: Tonsillectomy. Bilateral common iliac artery angioplasty stenting. EGDs and colonoscopies. 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 Treated with argon beam coagulation. A few non-bleeding angioectasias in the duodenum. Treated with argon beam coagulation. Patent biliary stent. ERCP as above. Right-sided axillofemoral and [id number]-[id number] fem/fem bypass undetermined date. PE: GEN: [id number], appears stated age. No acute distress. Alert and oriented x 3. HEENT: Normocephalic, atraumatic. Moist mucous membranes. CHEST: Regular rate and rhythm, +S1, +S2 LUNGS: Clear to auscultation bilaterally. No wheezes, rales, or rhonchi. ABD: Round, soft, non-tender, non-distended. +Bowel sounds throughout. No rebound or guarding. There is bloody drainage noted on surgical site dressing Rt groin area. EXT: No lower extremity edema appreciated. Toes and left foot are discolored, cool to touch. Left DP/PT unable to obtain with doppler. Rt foot warm with palpable DP and biphasic PT with doppler. SKIN: No rashes. NEURO: Alert and oriented x 3. Cranial nerves III-XII are intact. No focal deficits appreciated. A&P: H/o Right-sided axillofemoral and [id number] fem/fem bypass. S/P revision Rt Ax Bifem bypass as per Dr Martin 08/16/18. The pt is well known to Dr Martin. Heparin IV/Alteplase. Fibrinogen this AM 187. Dr Martin aware. He is aware of bloody drainage from surgical site, Alteplase adjusted. Continue Q6 fibrinogen, H/H, PTT. Monitor. H/O upper and lower GI bleed. EGD on 04/22/2017 that showed multiple (more than 10) small angioectasia of the duodenum treated with argon-beam coagulation. Recent admission for UGIB, EGD 07/10 Three non-bleeding angioectasias in the stomach. Treated with argon beam coagulation. A few non-bleeding angioectasias in the duodenum. Treated with argon beam coagulation. Patent biliary stent. Follows with Dr Santoyo. Continue PPI BID Continue Carafate AC/HS. chronic anemia. Monitor CBC. Hgb8.6 Fe supplement BID. Monitor for bleeding. Tobacco use. Reinforced cessation. VS, I&O, 24H, aPtrickbone Vital Signs/I&O Vital Signs Date Time Temp Pulse Resp B/P (MAP) Pulse Ox O2 Delivery O2 Flow Rate FiO2 09/02/18 08:48 90 120/59 09/02/18 08:00 98.6 17 92 I&O- Last 24 Hours up to 6 AM 09/02/18 06:00 Intake Total 800 ml Output Total 900 ml Balance -100 ml Laboratory Data 24H LABS Laboratory Tests 2 09/01/18 11:45: Bedside Glucose (Misc Panel) 138H 09/01/18 17:21: Bedside Glucose (Misc Panel) 101 09/01/18 19:54: Bedside Glucose (Misc Panel) 193H 09/01/18 21:59: Activated Partial Thromboplast Time 92.4H, Fibrinogen 340 09/02/18 04:07: Activated Partial Thromboplast Time 98.7H, Fibrinogen 187L, Anion Gap 7L, Glomerular Filtration Rate > 60.0, Blood Urea Nitrogen 16, Creatinine 0.59, Sodium Level 144, Potassium Level 3.3L, Chloride Level 111H, Carbon Dioxide Level 26, Calcium Level 7.8L, Aspartate Amino Transf (AST/SGOT) 13, Alanine Aminotransferase (ALT/SGPT) 17, Alkaline Phosphatase 143H, Total Bilirubin 0.2, Total Protein 5.0L, Albumin 2.1L, Magnesium Level 1.8, Albumin/Globulin Ratio 0.72L 09/02/18 04:09: Nucleated Red Blood Cells % (auto) 0.3H CBC/BMP Laboratory Tests 09/01/18 21:59 09/02/18 04:07 Calcium Level 7.8 L, Aspartate Amino Transf (AST/SGOT) 13, Alanine Aminotransferase (ALT/SGPT) 17, Alkaline Phosphatase 143 H, Total Bilirubin 0.2, Total Protein 5.0 L, Albumin 2.1 L 09/02/18 04:09 Red Blood Count 3.14 L, Mean Corpuscular Volume 90.8, Mean Corpuscular Hemoglobin 27.4, Mean Corpuscular Hemoglobin Concent 30.2 L, Red Cell Distribution Width 21.0 H Microbiology Microbiology 08/23/18 Blood Culture - Final, Complete NO GROWTH AFTER 5 DAYS 08/23/18 Blood Culture - Final, Complete NO GROWTH AFTER 5 DAYS Sunshine Allison Sep 02, 2018 10:34
[2018-09-02] MEDS ORDERED: POTASSIUM CHLORIDE 10 MEQ SR TABLET PO ONE ×2 (11:00→14:00)
[2018-09-02 12:07] LABS: HEMATOCRIT 26.2 % (36.0-47.0); HEMOGLOBIN 7.9 g/dl (12.0-15.5)
[2018-09-02 12:19] LABS: PARTIAL THROMBOPLASTIN TIME 82.8 SECONDS (25.4-37.6)
--- NOTE | 2018-09-02 13:57 | IPNPDOC ---
Date Seen The patient was seen on 09/02/18. Progress Note SUBJECTIVE: Patient reports improvement in the pain in her left toe. She tells me she is able to move it now and that the color has changed. She tells me that she went for TPA yesterday and has been doing well since. She complains of some bleeding at her right groin previous surgery site otherwise patient denies chest pain, shortness breath, nausea, vomiting, fevers, chills OBJECTIVE PHYSICAL EXAMINATION: VITAL SIGNS: Please see below. GENERAL: Pleasant elderly frail woman lying in bed awake alert oriented speaking in complete sentences no acute distress HEENT: Moist mucous membranes no elevation and CVP CARDIOVASCULAR: S1 S2 regular no additional heart sounds appreciated. RESPIRATORY: Clear to auscultation bilaterally. ABDOMINAL: Bowel sounds present abdomen soft and nontender EXTREMITIES: No clubbing cyanosis or edema, improved papillary refill of the left foot, 1+ edema. Right groin bloodstained dressing NEUROLOGICAL: Spontaneously moves all 4 extremities cranial 2 through 12 grossly intact no gross focal deficits appreciated PSYCHOLOGICAL: Appropriate LABORATORY DATA, MICROBIOLOGY: Please see below. IMAGING STUDIES: Chest x-ray:No acute cardiopulmonary process appreciated. Previously identified lung nodule in the left upper lung zone cannot be excluded. 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 Patent right axillofemoral bypass graft. Occlusion of femoral to femoral bypass graft. Metallic domo overlie the right lower quadrant, overlying a portion of the occluded graft. There is some air and fluid surrounding the occluded graft. I cannot exclude a developing abscess and clinical correlation and followup is recommended. Patent flow is seen through the right lower extremity as discussed above. Collateral flow is seen via multiple tiny collateral vessels in the left thigh reconstituting portions of the trifurcation arteries in the left calf. ASSESSMENT AND PLAN: This is a 78-year-old female with peripheral arterial disease. PROBLEMS: 1. Peripheral arterial disease: Vascular surgery help greatly appreciated. Patient has history of known right-sided axillofemoral right to left femorofemoral bypass, status post revision right aortic bifemoral bypass. She is currently receiving from a thrombolysis, she is having some bleeding from her right groin. I did obtain consent for blood products and suspect she'll need to units in the near future as her TPA is going to continue. Continue with pain medication as needed. Continue with Plavix 2. History of GI bleed: No evidence of any ongoing bleeding through her gastrointestinal tract at this time she did have endoscopy in June of this year which revealed angiectasia was treated with argon beam coagulation's, she is continued on PPI as well as Carafate. We'll monitor bleeding from her groin very closely and transfuse for hemoglobin less than 8 3. Chronic anemia: Likely secondary to the above in addition with chronic disease related to her peripheral arterial disease potentially. Continue with iron supplementation. As above will continue to monitor hemoglobin and transfuse as needed 4. Tobacco abuse: Cessation counseling provided 5. Dyslipidemia: Continue with statin 6. Diabetes: Continue with insulin sliding scale 7. HTN: Controlled con't with amlodipine 8. COPD: Stable at her baseline after status 9. Moderate protein calorie malnutrition: Encouraged by mouth intake DVT prophylaxis: Heparin drip and TPA DISPOSITION: Pending completion of thrombolysis stabilization of hemoglobin and then PT evaluation VS, I&O, 24H, Fishbone Vital Signs/I&O Vital Signs Date Time Temp Pulse Resp B/P (MAP) Pulse Ox O2 Delivery O2 Flow Rate FiO2 09/02/18 08:48 90 120/59 09/02/18 08:00 98.6 17 92 I&O- Last 24 Hours up to 6 AM 09/02/18 06:00 Intake Total 800 ml Output Total 900 ml Balance -100 ml Laboratory Data 24H LABS Laboratory Tests 2 09/01/18 17:21: Bedside Glucose (Misc Panel) 101 09/01/18 19:54: Bedside Glucose (Misc Panel) 193H 09/01/18 21:59: Activated Partial Thromboplast Time 92.4H, Fibrinogen 340 09/02/18 04:07: Activated Partial Thromboplast Time 98.7H, Fibrinogen 187L, Anion Gap 7L, Glomerular Filtration Rate > 60.0, Blood Urea Nitrogen 16, Creatinine 0.59, Sodium Level 144, Potassium Level 3.3L, Chloride Level 111H, Carbon Dioxide Level 26, Calcium Level 7.8L, Aspartate Amino Transf (AST/SGOT) 13, Alanine Aminotransferase (ALT/SGPT) 17, Alkaline Phosphatase 143H, Total Bilirubin 0.2, Total Protein 5.0L, Albumin 2.1L, Magnesium Level 1.8, Albumin/Globulin Ratio 0.72L 09/02/18 04:09: Nucleated Red Blood Cells % (auto) 0.3H 09/02/18 11:34: Bedside Glucose (Misc Panel) 218H 09/02/18 11:55: Activated Partial Thromboplast Time 82.8H, Fibrinogen 154L CBC/BMP Laboratory Tests 09/01/18 21:59 09/02/18 04:07 Calcium Level 7.8 L, Aspartate Amino Transf (AST/SGOT) 13, Alanine Aminotransferase (ALT/SGPT) 17, Alkaline Phosphatase 143 H, Total Bilirubin 0.2, Total Protein 5.0 L, Albumin 2.1 L 09/02/18 04:09 Red Blood Count 3.14 L, Mean Corpuscular Volume 90.8, Mean Corpuscular Hemoglobin 27.4, Mean Corpuscular Hemoglobin Concent 30.2 L, Red Cell Distribution Width 21.0 H 09/02/18 11:55 Microbiology Microbiology 08/23/18 Blood Culture - Final, Complete NO GROWTH AFTER 5 DAYS 08/23/18 Blood Culture - Final, Complete NO GROWTH AFTER 5 DAYS BETTY MERCADO MD Sep 02, 2018 13:57
[2018-09-02] MEDS ORDERED: MAG SULF 1GM/100ML (MAG RUN) 1 GM in APPROPRIATE DILUENT 1 EA IV ONE (14:00)
[2018-09-02 18:15] LABS: HEMATOCRIT 26.6 % (36.0-47.0); MEAN CORPUSCULAR HEMOGLOBIN 27.7 pg (27.0-33.0); MEAN CORPUSCULAR HGB CONC 30.1 g/dl (32.0-36.5); PLATELET COUNT, AUTOMATED 366 10^3/uL (150-450); RED BLOOD COUNT 2.89 10^6/uL (4.00-5.40)
[2018-09-02 18:24] LABS: PARTIAL THROMBOPLASTIN TIME 57.1 SECONDS (25.4-37.6)
[2018-09-02] MEDS: ATORVASTATIN 20 MG TAB PO SCH (20:27)
[2018-09-03] VITALS (30 sets, daily range): BP systolic 94–164; BP diastolic 46–83
[2018-09-03 00:17] LABS: PARTIAL THROMBOPLASTIN TIME 59.4 SECONDS (25.4-37.6)
[2018-09-03 00:33] LABS: HEMATOCRIT 26.7 % (36.0-47.0); HEMOGLOBIN 8.2 g/dl (12.0-15.5); MEAN CORPUSCULAR HEMOGLOBIN 28.2 pg (27.0-33.0); MEAN CORPUSCULAR HGB CONC 30.7 g/dl (32.0-36.5); MEAN CORPUSCULAR VOLUME 91.8 fl (80.0-96.0); PLATELET COUNT, AUTOMATED 346 10^3/uL (150-450); RED BLOOD COUNT 2.91 10^6/uL (4.00-5.40); WHITE BLOOD COUNT 7.5 10^3/uL (4.0-10.0)
[2018-09-03] MEDS: NORCO, ANEXSIA 5/325MG TABLET (HYDROcodone/ACETAMINOPHEN) PO PRN ×3 (01:51→12:21)
[2018-09-03] MEDS: MORPHINE 4 MG/ML 1ML VIAL/SYRINGE (J2270) IV PRN ×2 (04:03→13:27)
[2018-09-03] MEDS: SODIUM CHLORIDE 0.9% INJ 10 ML SYR IV SCH ×2 (05:45→19:18)
[2018-09-03 06:03] LABS: HEMATOCRIT 25.3 % (36.0-47.0); HEMOGLOBIN 7.7 g/dl (12.0-15.5); MEAN CORPUSCULAR HEMOGLOBIN 28.2 pg (27.0-33.0); MEAN CORPUSCULAR HGB CONC 30.4 g/dl (32.0-36.5); MEAN CORPUSCULAR VOLUME 92.7 fl (80.0-96.0); PLATELET COUNT, AUTOMATED 342 10^3/uL (150-450); RED BLOOD COUNT 2.73 10^6/uL (4.00-5.40); WHITE BLOOD COUNT 7.1 10^3/uL (4.0-10.0)
[2018-09-03 06:27] LABS: ALBUMIN 1.8 GM/DL (3.2-5.2); ALT/SGPT 17 U/L (12-78); BILIRUBIN,TOTAL 0.2 MG/DL (0.2-1.0); BLOOD UREA NITROGEN 11 MG/DL (7-18); CALCIUM LEVEL 6.9 MG/DL (8.8-10.2); CARBON DIOXIDE LEVEL 26 MEQ/L (21-32); CHLORIDE LEVEL 113 MEQ/L (98-107); CREATININE FOR GFR 0.55 MG/DL (0.55-1.30); GLOMERULAR FILTRATION RATE > 60.0 (>39); GLUCOSE, FASTING 187 MG/DL (70-100); POTASSIUM SERUM 3.6 MEQ/L (3.5-5.1); SODIUM LEVEL 144 MEQ/L (136-145); TOTAL PROTEIN 4.7 GM/DL (6.4-8.2)
[2018-09-03] MEDS: HumaLOG INSULIN (NovoLOG) PER UNIT SC SCH ×4 (08:05→21:00)
[2018-09-03] MEDS: FERROUS SULFATE 325MG TAB PO SCH ×2 (08:05→20:04)
[2018-09-03] MEDS: amLODIPine 5 MG TAB PO SCH (08:06)
[2018-09-03] MEDS: SUCRALFATE 1 GM TAB PO SCH ×4 (08:06→20:04)
[2018-09-03] MEDS: PANTOPRAZOLE 40MG TAB (PROTONIX) PO SCH ×2 (08:06→20:04)
[2018-09-03] MEDS: CLOPIDOGREL 75 MG TAB PO SCH (08:06)
--- NOTE | 2018-09-03 09:23 | IPNPDOC ---
Date Seen The patient was seen on 09/03/18. Progress Note Vascular Surgery. Dr Martin. 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 Revision of Ax Bifem graft 08/16/[address] Martin discharged 08/21/18. Patient presented in ER 08/23/18 with chief complaints of cold left foot admission was arranged, vascular surgery consulted. The pt states pain in the left foot is worse again this AM, tender to touch, bear weight or with movement. Denies any fevers, chills, weakness, fatigue, Headache, Chest Pain, Shortness of breath, cough, palpitations, abdominal pain, N/V/D or changes in bowel or angela dder habits. PAST MEDICAL HISTORY: Hypertension. Hyperlipidemia. Type 2 diabetes. COPD. ERCP June 2017 cholangitis/biliary stent. H/O upper and lower GI bleed. EGD on 04/22/2017 that showed multiple (more than 10) small angioectasia of the duodenum treated with argon-beam coagulation. Recent admission for UGIB, EGD 07/10/18 Three non-bleeding angioectasias in the stomach. Treated with argon beam coagulation. A few non-bleeding angioectasias in the duodenum. Treated with argon beam coagulation. Patent biliary stent. chronic anemia history of vascular disease status post bilateral common iliac artery and angioplasty and stenting. H/O DVT of the left lower extremity and was anticoagulated on warfarin until her admission for GI Bleeding March 2017. PAST SURGICAL HISTORY: Tonsillectomy. Bilateral common iliac artery angioplasty stenting. EGDs and colonoscopies. 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 Treated with argon beam coagulation. A few non-bleeding angioectasias in the duodenum. Treated with argon beam coagulation. Patent biliary stent. ERCP as above. Right-sided axillofemoral and [id number] fem/fem bypass undetermined date. PE: GEN: [id number], appears stated age. No acute distress. Alert and oriented x 3. HEENT: Normocephalic, atraumatic. Moist mucous membranes. CHEST: Regular rate and rhythm, +S1, +S2 LUNGS: Clear to auscultation bilaterally. No wheezes, rales, or rhonchi. ABD: Round, soft, non-tender, non-distended. +Bowel sounds throughout. No rebound or guarding. Previous surgical site with dressing Rt groin area, firm area surrounding , no warmth, fluctuance. EXT: No lower extremity edema appreciated. Toes and left foot are discolored, cool to touch, TTP. Left DP/PT unable to obtain with Doppler. Rt foot warm with palpable DP and biphasic PT with doppler. SKIN: No rashes. NEURO: Alert and oriented x 3. Cranial nerves III-XII are intact. No focal deficits appreciated. A&P: H/o Right-sided axillofemoral and [id number] fem/fem bypass. S/P revision Rt Ax Bifem bypass as per Dr Martin 08/16/18. The pt is well known to Dr Martin. The pt is reviewed and discussed with Dr Martin. Heparin IV Alteplase d/cd 09/01/18. Fibrinogen this AM 166. Dr Martin aware. Hgb 7.7 this AM, transfuse 2 u PRBC. Consent for blood products is on chart. Continue Q6 fibrinogen, H/H, PTT. Plan for angiogram today as per Dr Martin. Monitor. H/O upper and lower GI bleed. EGD on 04/22/2017 that showed multiple (more than 10) small angioectasia of the duodenum treated with argon-beam coagulation. Recent admission for UGIB, EGD 07/10 Three non-bleeding angioectasias in the stomach. Treated with argon beam coagulation. A few non-bleeding angioectasias in the duodenum. Treated with argon beam coagulation. Patent biliary stent. Follows with Dr Santoyo. Continue PPI BID Continue Carafate AC/HS. FOB pending. chronic anemia. Monitor CBC. Hgb7.7 Fe supplement BID. Transfuse as above. VS, I&O, 24H, Fishbone Vital Signs/I&O Vital Signs Date Time Temp Pulse Resp B/P (MAP) Pulse Ox O2 Delivery O2 Flow Rate FiO2 09/03/18 08:19 18 100 09/03/18 08:06 86 113/54 09/03/18 04:00 98.1 I&O- Last 24 Hours up to 6 AM 09/03/18 06:00 Intake Total 1095 ml Output Total 1000 ml Balance 95 ml Laboratory Data 24H LABS Laboratory Tests 2 09/02/18 11:34: Bedside Glucose (Misc Panel) 218H 09/02/18 11:55: Activated Partial Thromboplast Time 82.8H, Fibrinogen 154L 09/02/18 17:25: Bedside Glucose (Misc Panel) 221H 09/02/18 17:56: Activated Partial Thromboplast Time 57.1H, Fibrinogen 164L, Nucleated Red Blood Cells % (auto) 0.2H 09/02/18 20:26: Bedside Glucose (Misc Panel) 150H 09/02/18 23:51: Nucleated Red Blood Cells % (auto) 0.3H, Activated Partial Thromboplast Time 59.4H, Fibrinogen 180L 09/03/18 05:49: Nucleated Red Blood Cells % (auto) 0.0, Activated Partial Thromboplast Time 53.0H, Fibrinogen 166L, Anion Gap 5L, Glomerular Filtration Rate > 60.0, Blood Urea Nitrogen 11, Creatinine 0.55, Sodium Level 144, Potassium Level 3.6, Chloride Level 113H, Carbon Dioxide Level 26, Calcium Level 6.9L, Aspartate Amino Transf (AST/SGOT) 7, Alanine Aminotransferase (ALT/SGPT) 17, Alkaline Phosphatase 141H, Total Bilirubin 0.2, Total Protein 4.7L, Albumin 1.8L, Albumin/Globulin Ratio 0.62L CBC/BMP Laboratory Tests 09/02/18 11:55 09/02/18 17:56 Red Blood Count 2.89 L, Mean Corpuscular Volume 92.0, Mean Corpuscular Hemoglobin 27.7, Mean Corpuscular Hemoglobin Concent 30.1 L, Red Cell Distribution Width 21.4 H 09/02/18 23:51 Red Blood Count 2.91 L, Mean Corpuscular Volume 91.8, Mean Corpuscular Hemoglobin 28.2, Mean Corpuscular Hemoglobin Concent 30.7 L, Red Cell Distribution Width 21.4 H 09/03/18 05:49 Red Blood Count 2.73 L, Mean Corpuscular Volume 92.7, Mean Corpuscular Hemoglobin 28.2, Mean Corpuscular Hemoglobin Concent 30.4 L, Red Cell Distribution Width 21.7 H, Calcium Level 6.9 L, Aspartate Amino Transf (AST/SGOT) 7, Alanine Aminotransferase (ALT/SGPT) 17, Alkaline Phosphatase 141 H, Total Bilirubin 0.2, Total Protein 4.7 L, Albumin 1.8 L Sunshine Allison Sep 03, 2018 09:23
--- NOTE | 2018-09-03 13:28 | IPNPDOC ---
Date Seen The patient was seen on 09/03/18. Progress Note SUBJECTIVE: Patient tells me that she had a good night yesterday evening. She tells me that she did not have much bleeding from her right groin. She tells me that her big toe however is starting to hurt once again and feels as though it did before she began her thrombolysis. She tells me was difficult to move once again beginning to change color. otherwise patient denies chest pain, shortness breath, nausea, vomiting, fevers, chills OBJECTIVE PHYSICAL EXAMINATION: VITAL SIGNS: Please see below. GENERAL: Pleasant elderly frail woman lying in bed awake alert oriented speaking in complete sentences no acute distress, in good spirits HEENT: Moist mucous membranes no elevation in CVP CARDIOVASCULAR: S1 S2 regular no additional heart sounds appreciated. RESPIRATORY: Clear to auscultation bilaterally. ABDOMINAL: Bowel sounds present abdomen soft and nontender EXTREMITIES: No clubbing cyanosis left foot, 1+ edema. Right groin dressing is clean dry and intact NEUROLOGICAL: Spontaneously moves all 4 extremities cranial 2 through 12 grossly intact no gross focal deficits appreciated PSYCHOLOGICAL: Appropriate LABORATORY DATA, MICROBIOLOGY: Please see below. IMAGING STUDIES: Chest x-ray:No acute cardiopulmonary process appreciated. Previously identified lung nodule in the left upper lung zone cannot be excluded. 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 Patent right axillofemoral bypass graft. Occlusion of femoral to femoral bypass graft. Metallic domo overlie the right lower quadrant, overlying a portion of the occluded graft. There is some air and fluid surrounding the occluded graft. I cannot exclude a developing abscess and clinical correlation and followup is recommended. Patent flow is seen through the right lower extremity as discussed above. Collateral flow is seen via multiple tiny collateral vessels in the left thigh reconstituting portions of the trifurcation arteries in the left calf. ASSESSMENT AND PLAN: This is a 78-year-old female with peripheral arterial disease. PROBLEMS: 1. Peripheral arterial disease: Vascular surgery help greatly appreciated. Patient has history of known right-sided axillofemoral right to left femorofemoral bypass, status post revision right aortic bifemoral bypass. Her thrombolysis was discontinued. She is having recurrence of her pain in the toe today. This is concerning and will recheck to the vascular service and see if she requires further thrombolysis versus alternative intervention versus this possibly being a reperfusion pain however it does not sound as though that is the case to me at this time. Continue with pain medication as needed. Continue with Plavix 2. History of GI bleed: No evidence of any ongoing bleeding through her gastrointestinal tract at this time she did have endoscopy in June of this year which revealed angiectasia was treated with argon beam coagulation's, she is continued on PPI as well as Carafate. 3. Chronic anemia: Likely secondary to the above in addition with chronic disease related to her peripheral arterial disease as well as recent acute blood loss in her right groin previous incision site related to TPA use. I believe she would benefit from 2 units of PRBCs this morning and we'll discuss further with the vascular service. Continue with iron supplementation. As above will continue to monitor hemoglobin and transfuse as needed 4. Tobacco abuse: Cessation counseling provided 5. Dyslipidemia: Continue with statin 6. Diabetes: Continue with insulin sliding scale 7. HTN: Controlled con't with amlodipine 8. COPD: Stable at her baseline after status 9. Moderate protein calorie malnutrition: Encouraged by mouth intake DVT prophylaxis: Heparin drip DISPOSITION: Pending vascular re-eval stabilization of hemoglobin and then PT evaluation VS, I&O, 24H, Fishbone Vital Signs/I&O Vital Signs Date Time Temp Pulse Resp B/P (MAP) Pulse Ox O2 Delivery O2 Flow Rate FiO2 09/03/18 12:21 20 09/03/18 10:10 96.3 85 108/51 (70) 100 I&O- Last 24 Hours up to 6 AM 09/03/18 06:00 Intake Total 1095 ml Output Total 1000 ml Balance 95 ml Laboratory Data 24H LABS Laboratory Tests 2 09/02/18 17:25: Bedside Glucose (Misc Panel) 221H 09/02/18 17:56: Nucleated Red Blood Cells % (auto) 0.2H, Activated Partial Thromboplast Time 57.1H, Fibrinogen 164L 09/02/18 20:26: Bedside Glucose (Misc Panel) 150H 09/02/18 23:51: Nucleated Red Blood Cells % (auto) 0.3H, Activated Partial Thromboplast Time 59.4H, Fibrinogen 180L 09/03/18 05:49: Nucleated Red Blood Cells % (auto) 0.0, Activated Partial Thromboplast Time 53.0H, Fibrinogen 166L, Anion Gap 5L, Glomerular Filtration Rate > 60.0, Blood Urea Nitrogen 11, Creatinine 0.55, Sodium Level 144, Potassium Level 3.6, Chloride Level 113H, Carbon Dioxide Level 26, Calcium Level 6.9L, Aspartate Amino Transf (AST/SGOT) 7, Alanine Aminotransferase (ALT/SGPT) 17, Alkaline Phosphatase 141H, Total Bilirubin 0.2, Total Protein 4.7L, Albumin 1.8L, Albumin/Globulin Ratio 0.62L 09/03/18 12:17: Bedside Glucose (Misc Panel) 151H CBC/BMP Laboratory Tests 09/02/18 17:56 Red Blood Count 2.89 L, Mean Corpuscular Volume 92.0, Mean Corpuscular Hemoglobin 27.7, Mean Corpuscular Hemoglobin Concent 30.1 L, Red Cell Distribution Width 21.4 H 09/02/18 23:51 Red Blood Count 2.91 L, Mean Corpuscular Volume 91.8, Mean Corpuscular Hemoglobin 28.2, Mean Corpuscular Hemoglobin Concent 30.7 L, Red Cell Distribution Width 21.4 H 09/03/18 05:49 Red Blood Count 2.73 L, Mean Corpuscular Volume 92.7, Mean Corpuscular Hemoglobin 28.2, Mean Corpuscular Hemoglobin Concent 30.4 L, Red Cell Distribution Width 21.7 H, Calcium Level 6.9 L, Aspartate Amino Transf (AST/SG OT) 7, Alanine Aminotransferase (ALT/SGPT) 17, Alkaline Phosphatase 141 H, Total Bilirubin 0.2, Total Protein 4.7 L, Albumin 1.8 L BETTY MERCADO MD Sep 03, 2018 13:28
[2018-09-03 13:52] LABS: HEMATOCRIT 32.2 % (36.0-47.0); MEAN CORPUSCULAR HEMOGLOBIN 27.6 pg (27.0-33.0); MEAN CORPUSCULAR HGB CONC 30.7 g/dl (32.0-36.5); MEAN CORPUSCULAR VOLUME 89.7 fl (80.0-96.0); PLATELET COUNT, AUTOMATED 337 10^3/uL (150-450); RED BLOOD COUNT 3.59 10^6/uL (4.00-5.40); WHITE BLOOD COUNT 7.7 10^3/uL (4.0-10.0)
[2018-09-03 13:59] LABS: HEMOGLOBIN 9.9 g/dl (12.0-15.5)
[2018-09-03 14:03] LABS: PARTIAL THROMBOPLASTIN TIME 46.2 SECONDS (25.4-37.6)
[2018-09-03] MEDS ORDERED: BUPIVACAINE HCL 0.5% 10 ML VIAL As Ordered ONE (14:54)
[2018-09-03] MEDS ORDERED: fentaNYL 100 MCG/2 ML INJECTION (J3010) As Ordered ONE ×2 (14:54→15:25)
[2018-09-03] MEDS ORDERED: ISOVUE-300 61% 50ML VIAL (Q9967) As Ordered ONE (14:55)
[2018-09-03] MEDS ORDERED: MIDAZOLAM INJ 2 MG/2 ML VIAL (J2250) As Ordered ONE ×2 (14:55→15:25)
[2018-09-03] MEDS ORDERED: LIDOCAINE 2% MDV 20 ML VIAL As Ordered ONE (14:55)
[2018-09-03] MEDS ORDERED: HEPARIN 25,000 UNITS/250 ML D5W BAG (100 UNITS/ML) As Ordered ONE (14:56)
[2018-09-03] MEDS ORDERED: diphenhydrAMINE INJ 50MG/ML VIAL (J1200) As Ordered ONE (15:24)
[2018-09-03] MEDS ORDERED: ONDANSETRON 4MG/2ML VIAL (J2405) IV PRN (16:00)
[2018-09-03] MEDS ORDERED: MORPHINE 1MG/ML IN 0.9% NACL 100ML IV BAG IV PRN (16:00)
[2018-09-03] MEDS ORDERED: EPIDURAL/PCA KEYS XX PRN (16:00)
[2018-09-03] MEDS ORDERED: NALBUPHINE HCL 10 MG/ML AMP (J2300) IV PRN (16:00)
[2018-09-03] MEDS ORDERED: NALOXONE INJ 0.4 MG/1 ML VIAL (J2310) IV PRN (16:00)
[2018-09-03] MEDS ORDERED: diphenhydrAMINE INJ 50MG/ML VIAL (J1200) IV PRN (16:00)
[2018-09-03] MEDS: ALTEPLASE RECOMBINANT 10 MG in NS 90 ML IV SCH (18:56)
[2018-09-03] MEDS: NS 1,000 ML IV SCH (19:18)
[2018-09-03 19:31] LABS: HEMATOCRIT 33.4 % (36.0-47.0); HEMOGLOBIN 10.4 g/dl (12.0-15.5); MEAN CORPUSCULAR HEMOGLOBIN 27.7 pg (27.0-33.0); MEAN CORPUSCULAR HGB CONC 31.1 g/dl (32.0-36.5); MEAN CORPUSCULAR VOLUME 89.1 fl (80.0-96.0); PLATELET COUNT, AUTOMATED 351 10^3/uL (150-450); RED BLOOD COUNT 3.75 10^6/uL (4.00-5.40); WHITE BLOOD COUNT 9.7 10^3/uL (4.0-10.0)
[2018-09-03 19:45] LABS: PARTIAL THROMBOPLASTIN TIME 37.6 SECONDS (25.4-37.6)
[2018-09-03] MEDS: ATORVASTATIN 20 MG TAB PO SCH (20:04)
[2018-09-03] MEDS: HEPARIN DRIP 25,000 UNITS in APPROPRIATE DILUENT 1 EA IV SCH (20:17)
[2018-09-03 23:53] LABS: HEMATOCRIT 34.7 % (36.0-47.0); MEAN CORPUSCULAR HEMOGLOBIN 28.8 pg (27.0-33.0); MEAN CORPUSCULAR HGB CONC 31.7 g/dl (32.0-36.5); MEAN CORPUSCULAR VOLUME 90.8 fl (80.0-96.0); PLATELET COUNT, AUTOMATED 321 10^3/uL (150-450); RED BLOOD COUNT 3.82 10^6/uL (4.00-5.40); WHITE BLOOD COUNT 8.8 10^3/uL (4.0-10.0)
[2018-09-04] VITALS (23 sets, daily range): BP systolic 107–139; BP diastolic 51–92
[2018-09-04 00:14] LABS: PARTIAL THROMBOPLASTIN TIME 38.9 SECONDS (25.4-37.6)
[2018-09-04 06:06] LABS: HEMATOCRIT 32.1 % (36.0-47.0); HEMOGLOBIN 9.9 g/dl (12.0-15.5); MEAN CORPUSCULAR HEMOGLOBIN 27.7 pg (27.0-33.0); MEAN CORPUSCULAR HGB CONC 30.8 g/dl (32.0-36.5); MEAN CORPUSCULAR VOLUME 89.7 fl (80.0-96.0); PLATELET COUNT, AUTOMATED 332 10^3/uL (150-450); RED BLOOD COUNT 3.58 10^6/uL (4.00-5.40); WHITE BLOOD COUNT 9.6 10^3/uL (4.0-10.0)
[2018-09-04] MEDS: SODIUM CHLORIDE 0.9% INJ 10 ML SYR IV SCH ×2 (06:09→17:10)
[2018-09-04 06:21] LABS: PARTIAL THROMBOPLASTIN TIME 41.1 SECONDS (25.4-37.6)
[2018-09-04 06:39] LABS: ALBUMIN 1.8 GM/DL (3.2-5.2); ALT/SGPT 16 U/L (12-78); BILIRUBIN,TOTAL 0.4 MG/DL (0.2-1.0); BLOOD UREA NITROGEN 10 MG/DL (7-18); CALCIUM LEVEL 7.2 MG/DL (8.8-10.2); CARBON DIOXIDE LEVEL 26 MEQ/L (21-32); CHLORIDE LEVEL 111 MEQ/L (98-107); CREATININE FOR GFR 0.41 MG/DL (0.55-1.30); GLOMERULAR FILTRATION RATE > 60.0 (>39); GLUCOSE, FASTING 145 MG/DL (70-100); POTASSIUM SERUM 3.4 MEQ/L (3.5-5.1); SODIUM LEVEL 142 MEQ/L (136-145)
[2018-09-04] MEDS: PANTOPRAZOLE 40MG TAB (PROTONIX) PO SCH ×2 (08:34→21:17)
[2018-09-04] MEDS: amLODIPine 5 MG TAB PO SCH (08:34)
[2018-09-04] MEDS: FERROUS SULFATE 325MG TAB PO SCH ×2 (08:34→21:17)
[2018-09-04] MEDS: SUCRALFATE 1 GM TAB PO SCH ×4 (08:35→21:17)
[2018-09-04] MEDS: HumaLOG INSULIN (NovoLOG) PER UNIT SC SCH ×4 (08:35→21:00)
--- NOTE | 2018-09-04 10:35 | IPNPDOC ---
Date Seen The patient was seen on 09/04/18. Progress Note Vascular Surgery. Dr Martin. 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 Revision of Ax Bifem graft 08/16/[address] Martin discharged 08/21/18. Patient presented in ER 08/23/18 with chief complaints of cold left foot admission was arranged, vascular surgery consulted. The pt states pain in the left foot is unchanged this AM, tender to touch, bear weight or with movement. KENO CLERK helping with pain per pt. Denies any fevers, chills, weakness, fatigue, Headache, Chest Pain, Shortness of breath, cough, palpitations, abdominal pain, N/V/D or changes in bowel or bladder habits. PAST MEDICAL HISTORY: Hypertension. Hyperlipidemia. Type 2 diabetes. COPD. ERCP June 2017 cholangitis/biliary stent. H/O upper and lower GI bleed. EGD on 04/22/2017 that showed multiple (more than 10) small angioectasia of the duodenum treated with argon-beam coagulation. Recent admission for UGIB, EGD 07/10/18 Three non-bleeding angioectasias in the stomach. Treated with argon beam coagulation. A few non-bleeding angioectasias in the duodenum. Treated with argon beam coagulation. Patent biliary stent. chronic anemia history of vascular disease status post bilateral common iliac artery and angioplasty and stenting. H/O DVT of the left lower extremity and was anticoagulated on warfarin until her admission for GI Bleeding March 2017. PAST SURGICAL HISTORY: Tonsillectomy. Bilateral common iliac artery angioplasty stenting. EGDs and colonoscopies. 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 Treated with argon beam coagulation. A few non-bleeding angioectasias in the duodenum. Treated with argon beam coagulation. Patent biliary stent. ERCP as above. Right-sided axillofemoral and [id number] fem/fem bypass undetermined date. PE: GEN: [id number], appears stated age. No acute distress. Alert and oriented x 3. HEENT: Normocephalic, atraumatic. Moist mucous membranes. CHEST: Regular rate and rhythm, +S1, +S2 LUNGS: Clear to auscultation bilaterally. No wheezes, rales, or rhonchi. ABD: Round, soft, non-tender, non-distended. +Bowel sounds throughout. No rebou nd or guarding. Previous surgical site with dressing Rt groin area, firm area surrounding , no warmth, fluctuance. EXT: No lower extremity edema appreciated. Toes and left foot are discolored, cool to touch, TTP. Left DP/PT unable to obtain with Doppler. Rt foot warm with palpable DP and biphasic PT with doppler. SKIN: No rashes. NEURO: Alert and oriented x 3. Cranial nerves III-XII are intact. No focal deficits appreciated. A&P: H/o Right-sided axillofemoral and [id number] fem/fem bypass. S/P revision Rt Ax Bifem bypass as per Dr Martin 08/16/18. The pt is well known to Dr Martin. The pt is reviewed and discussed with Dr Martin. Heparin IV/Alteplase gtt currently. Fibrinogen this AM 247. Dr Martin aware. Hgb 9.9 this AM S/P 2 u PRBC 09/03/18. Continue Q6 fibrinogen, H/H, PTT. The pt is reviewed and examined by Dr Martin this AM. Plan for angiogram 09/04/[address] Martin. Monitor. H/O upper and lower GI bleed. EGD on 04/22/2017 that showed multiple (more than 10) small angioectasia of the duodenum treated with argon-beam coagulation. Recent admission for UGIB, EGD 07/10 Three non-bleeding angioectasias in the stomach. Treated with argon beam coagulation. A few non-bleeding angioectasias in the duodenum. Treated with argon beam coagulation. Patent biliary stent. Follows with Dr Santoyo. Continue PPI BID Continue Carafate AC/HS. FOB pending. chronic anemia. Monitor CBC. Hgb 9.9 Fe supplement BID. Monitor need for transfusion. VS, I&O, 24H, Fishbone Vital Signs/I&O Vital Signs Date Time Temp Pulse Resp B/P (MAP) Pulse Ox O2 Delivery O2 Flow Rate FiO2 09/04/18 09:00 96 20 112/53 (72) 94 09/04/18 07:00 97.1 I&O- Last 24 Hours up to 6 AM 09/04/18 06:00 Intake Total 1687.5 ml Output Total 1100 ml Balance 587.5 ml Laboratory Data 24H LABS Laboratory Tests 2 09/03/18 12:17: Bedside Glucose (Misc Panel) 151H 09/03/18 13:40: Nucleated Red Blood Cells % (auto) 0.4H, Activated Partial Thromboplast Time 46.2H, Fibrinogen 224 09/03/18 17:09: Bedside Glucose (Misc Panel) 109 09/03/18 18:00: Nucleated Red Blood Cells % (auto) 0.2H, Activated Partial Thromboplast Time 37.6, Fibrinogen 233 09/03/18 20:55: Bedside Glucose (Misc Panel) 148H 09/03/18 23:45: Nucleated Red Blood Cells % (auto) 0.0, Activated Partial Thromboplast Time 38.9H, Fibrinogen 256 09/04/18 05:57: Nucleated Red Blood Cells % (auto) 0.2H, Activated Partial Thromboplast Time 41.1H, Fibrinogen 247, Anion Gap 5L, Glomerular Filtration Rate > 60.0, Blood Urea Nitrogen 10, Creatinine 0.41L, Sodium Level 142, Potassium Level 3.4L, Chloride Level 111H, Carbon Dioxide Level 26, Calcium Level 7.2L, Aspartate Amino Transf (AST/SGOT) 11, Alanine Aminotransferase (ALT/SGPT) 16, Alkaline Phosphatase 162H, Total Bilirubin 0.4#, Total Protein 5.0L, Albumin 1.8L, Albumin/Globulin Ratio 0.56L CBC/BMP Laboratory Tests 09/03/18 13:40 Red Blood Count 3.59 L, Mean Corpuscular Volume 89.7, Mean Corpuscular Hemoglobin 27.6, Mean Corpuscular Hemoglobin Concent 30.7 L, Red Cell Dist ribution Width 19.3 H 09/03/18 18:00 Red Blood Count 3.75 L, Mean Corpuscular Volume 89.1, Mean Corpuscular Hemoglobin 27.7, Mean Corpuscular Hemoglobin Concent 31.1 L, Red Cell Distribution Width 19.4 H 09/03/18 23:45 Red Blood Count 3.82 L, Mean Corpuscular Volume 90.8, Mean Corpuscular Hemoglobin 28.8, Mean Corpuscular Hemoglobin Concent 31.7 L, Red Cell Distribution Width 19.6 H 09/04/18 05:57 Red Blood Count 3.58 L, Mean Corpuscular Volume 89.7, Mean Corpuscular Hemoglobin 27.7, Mean Corpuscular Hemoglobin Concent 30.8 L, Red Cell Distribution Width 19.9 H, Calcium Level 7.2 L, Aspartate Amino Transf (AST/SGOT) 11, Alanine Aminotransferase (ALT/SGPT) 16, Alkaline Phosphatase 162 H, Total Bilirubin 0.4 #, Total Protein 5.0 L, Albumin 1.8 L Sunshine Allison Sep 04, 2018 10:35
[2018-09-04 12:19] LABS: HEMATOCRIT 30.2 % (36.0-47.0); HEMOGLOBIN 9.4 g/dl (12.0-15.5); MEAN CORPUSCULAR HEMOGLOBIN 28.1 pg (27.0-33.0); MEAN CORPUSCULAR HGB CONC 31.1 g/dl (32.0-36.5); MEAN CORPUSCULAR VOLUME 90.1 fl (80.0-96.0); PLATELET COUNT, AUTOMATED 362 10^3/uL (150-450); RED BLOOD COUNT 3.35 10^6/uL (4.00-5.40)
[2018-09-04 12:29] LABS: PARTIAL THROMBOPLASTIN TIME 39.4 SECONDS (25.4-37.6)
--- NOTE | 2018-09-04 13:40 | IPNPDOC ---
Date Seen The patient was seen on 09/04/18. Progress Note SUBJECTIVE: Patient tells me that her toes is once again feeling better today. She also tells me that her groin is once again oozing blood but not as bad as it had previously in her opinion. otherwise patient denies chest pain, shortness breath, nausea, vomiting, fevers, chills OBJECTIVE PHYSICAL EXAMINATION: VITAL SIGNS: Please see below. GENERAL: Pleasant elderly frail woman lying in bed awake alert oriented speaking in complete sentences no acute distress. HEENT: Moist mucous membranes no elevation in CVP. CARDIOVASCULAR: S1 S2 regular no additional heart sounds appreciated. RESPIRATORY: Clear to auscultation bilaterally no wheezes rhonchi or rales. ABDOMINAL: Bowel sounds present abdomen soft and nontender. EXTREMITIES: No clubbing cyanosis left foot, 1+ edema. Right groin dressing is blood stained and intact NEUROLOGICAL: Spontaneously moves all 4 extremities cranial 2 through 12 grossly intact no gross focal deficits appreciated PSYCHOLOGICAL: Appropriate LABORATORY DATA, MICROBIOLOGY: Please see below. IMAGING STUDIES: Chest x-ray:No acute cardiopulmonary process appreciated. Previously identified lung nodule in the left upper lung zone cannot be excluded. 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 Patent right axillofemoral bypass graft. Occlusion of femoral to femoral bypass graft. Metallic domo overlie the right lower quadrant, overlying a portion of the occluded graft. There is some air and fluid surrounding the occluded graft. I cannot exclude a developing abscess and clinical correlation and followup is recommended. Patent flow is seen through the right lower extremity as discussed above. Collateral flow is seen via multiple tiny collateral vessels in the left thigh reconstituting portions of the trifurcation arteries in the left calf. ASSESSMENT AND PLAN: This is a 78-year-old female with peripheral arterial disease. PROBLEMS: 1. Peripheral arterial disease: Vascular surgery help greatly appreciated. Patient has history of known right-sided axillofemoral right to left femorofemoral bypass, status post revision right aortic bifemoral bypass. Her thrombolysis was discontinued she had worsening of her symptoms and was resumed yesterday. There is plan for possible angiogram once again today. Efforts are being made to preserve her limb and avoid amputation if at all possible. Continue with pain medication as needed. Continue with Plavix 2. History of GI bleed: No evidence of any ongoing bleeding through her gastrointestinal tract at this time she did have endoscopy in June of this year which revealed angiectasia was treated with argon beam coagulation's, she is continued on PPI as well as Carafate. 3. Chronic anemia: Likely secondary to the above in addition with chronic disease related to her peripheral arterial disease as well as recent acute blood loss in her right groin previous incision site related to TPA use. She has received a transfusion with a positive response As above will continue to monitor hemoglobin and transfuse as needed 4. Tobacco abuse: Cessation counseling provided previously 5. Dyslipidemia: Continue with statin 6. Diabetes: Continue with insulin sliding scale 7. HTN: Controlled con't with amlodipine 8. COPD: Stable at her baseline after status 9. Moderate protein calorie malnutrition: Encouraged by mouth intake DVT prophylaxis: Heparin drip TPA DISPOSITION: Pending vascular clearance stabilization of hemoglobin and then PT evaluation VS, I&O, 24H, Fishbone Vital Signs/I&O Vital Signs Date Time Temp Pulse Resp B/P (MAP) Pulse Ox O2 Delivery O2 Flow Rate FiO2 09/04/18 09:00 96 20 112/53 (72) 94 09/04/18 07:00 97.1 I&O- Last 24 Hours up to 6 AM0 09/04/18 06:00 Intake Total 1687.5 ml Output Total 1100 ml Balance 587.5 ml Laboratory Data 24H LABS Laboratory Tests 2 09/03/18 13:40: Nucleated Red Blood Cells % (auto) 0.4H, Activated Partial Thromboplast Time 46.2H, Fibrinogen 224 09/03/18 17:09: Bedside Glucose (Misc Panel) 109 09/03/18 18:00: Nucleated Red Blood Cells % (auto) 0.2H, Activated Partial Thromboplast Time 37. 6, Fibrinogen 233 09/03/18 20:55: Bedside Glucose (Misc Panel) 148H 09/03/18 23:45: Nucleated Red Blood Cells % (auto) 0.0, Activated Partial Thromboplast Time 38.9H, Fibrinogen 256 09/04/18 05:57: Nucleated Red Blood Cells % (auto) 0.2H, Activated Partial Thromboplast Time 41.1H, Fibrinogen 247, Anion Gap 5L, Glomerular Filtration Rate > 60.0, Blood Urea Nitrogen 10, Creatinine 0.41L, Sodium Level 142, Potassium Level 3.4L, Chloride Level 111H, Carbon Dioxide Level 26, Calcium Level 7.2L, Aspartate Amino Transf (AST/SGOT) 11, Alanine Aminotransferase (ALT/SGPT) 16, Alkaline Phosphatase 162H, Total Bilirubin 0.4#, Total Protein 5.0L, Albumin 1.8L, Albumin/Globulin Ratio 0.56L 09/04/18 11:45: Nucleated Red Blood Cells % (auto) 0.0, Activated Partial Thromboplast Time 39.4H, Fibrinogen 255 09/04/18 11:49: Bedside Glucose (Misc Panel) 138H CBC/BMP Laboratory Tests 09/03/18 13:40 Red Blood Count 3.59 L, Mean Corpuscular Volume 89.7, Mean Corpuscular Hemoglobin 27.6, Mean Corpuscular Hemoglobin Concent 30.7 L, Red Cell Distribution Width 19.3 H 09/03/18 18:00 Red Blood Count 3.75 L, Mean Corpuscular Volume 89.1, Mean Corpuscular Hemoglobin 27.7, Mean Corpuscular Hemoglobin Concent 31.1 L, Red Cell Distribution Width 19.4 H 09/03/18 23:45 Red Blood Count 3.82 L, Mean Corpuscular Volume 90.8, Mean Corpuscular Hemog lobin 28.8, Mean Corpuscular Hemoglobin Concent 31.7 L, Red Cell Distribution Width 19.6 H 09/04/18 05:57 Red Blood Count 3.58 L, Mean Corpuscular Volume 89.7, Mean Corpuscular Hemoglobin 27.7, Mean Corpuscular Hemoglobin Concent 30.8 L, Red Cell Distribution Width 19.9 H, Calcium Level 7.2 L, Aspartate Amino Transf (AST/SGOT) 11, Alanine Aminotransferase (ALT/SGPT) 16, Alkaline Phosphatase 162 H, Total Bilirubin 0.4 #, Total Protein 5.0 L, Albumin 1.8 L 09/04/18 11:45 Red Blood Count 3.35 L, Mean Corpuscular Volume 90.1, Mean Corpuscular Hemoglobi n 28.1, Mean Corpuscular Hemoglobin Concent 31.1 L, Red Cell Distribution Width 20.1 H BETTY MERCADO MD Sep 04, 2018 13:40
[2018-09-04] MEDS ORDERED: POTASSIUM CHLORIDE 10 MEQ SR TABLET PO ONE (14:00)
[2018-09-04] MEDS ORDERED: ISOVUE-300 61% 50ML VIAL (Q9967) As Ordered ONE (14:54)
[2018-09-04] MEDS ORDERED: LIDOCAINE 2% MDV 20 ML VIAL As Ordered ONE (14:54)
[2018-09-04] MEDS ORDERED: BUPIVACAINE HCL 0.5% 10 ML VIAL As Ordered ONE (14:54)
[2018-09-04] MEDS ORDERED: MIDAZOLAM INJ 2 MG/2 ML VIAL (J2250) As Ordered ONE (15:44)
[2018-09-04] MEDS ORDERED: fentaNYL 100 MCG/2 ML INJECTION (J3010) As Ordered ONE (15:44)
[2018-09-04] MEDS: NS 1,000 ML IV SCH (15:48)
[2018-09-04 18:07] LABS: HEMATOCRIT 29.3 % (36.0-47.0); HEMOGLOBIN 9.1 g/dl (12.0-15.5); MEAN CORPUSCULAR HEMOGLOBIN 27.9 pg (27.0-33.0); MEAN CORPUSCULAR HGB CONC 31.1 g/dl (32.0-36.5); MEAN CORPUSCULAR VOLUME 89.9 fl (80.0-96.0); PLATELET COUNT, AUTOMATED 352 10^3/uL (150-450); RED BLOOD COUNT 3.26 10^6/uL (4.00-5.40); WHITE BLOOD COUNT 11.8 10^3/uL (4.0-10.0)
[2018-09-04 18:20] LABS: PARTIAL THROMBOPLASTIN TIME 42.6 SECONDS (25.4-37.6)
[2018-09-04] MEDS: ATORVASTATIN 20 MG TAB PO SCH (21:16)
[2018-09-04] MEDS: ALTEPLASE RECOMBINANT 10 MG in NS 90 ML IV SCH (21:19)
[2018-09-04] MEDS: HEPARIN DRIP 25,000 UNITS in APPROPRIATE DILUENT 1 EA IV SCH (21:19)
[2018-09-05] VITALS (28 sets, daily range): BP systolic 101–142; BP diastolic 48–76
[2018-09-05 00:14] LABS: HEMATOCRIT 26.8 % (36.0-47.0); HEMOGLOBIN 8.3 g/dl (12.0-15.5); MEAN CORPUSCULAR HEMOGLOBIN 27.9 pg (27.0-33.0); MEAN CORPUSCULAR VOLUME 89.9 fl (80.0-96.0); PARTIAL THROMBOPLASTIN TIME 58.4 SECONDS (25.4-37.6); PLATELET COUNT, AUTOMATED 341 10^3/uL (150-450); RED BLOOD COUNT 2.98 10^6/uL (4.00-5.40); WHITE BLOOD COUNT 11.2 10^3/uL (4.0-10.0)
[2018-09-05] MEDS: SODIUM CHLORIDE 0.9% INJ 10 ML SYR IV SCH ×2 (06:00→17:09)
[2018-09-05 06:31] LABS: HEMATOCRIT 26.1 % (36.0-47.0); HEMOGLOBIN 8.1 g/dl (12.0-15.5); MEAN CORPUSCULAR HEMOGLOBIN 27.7 pg (27.0-33.0); MEAN CORPUSCULAR VOLUME 89.4 fl (80.0-96.0); PARTIAL THROMBOPLASTIN TIME 52.3 SECONDS (25.4-37.6); PLATELET COUNT, AUTOMATED 316 10^3/uL (150-450); RED BLOOD COUNT 2.92 10^6/uL (4.00-5.40); WHITE BLOOD COUNT 10.5 10^3/uL (4.0-10.0)
[2018-09-05 06:48] LABS: BLOOD UREA NITROGEN 10 MG/DL (7-18); CALCIUM LEVEL 7.1 MG/DL (8.8-10.2); CARBON DIOXIDE LEVEL 25 MEQ/L (21-32); CHLORIDE LEVEL 109 MEQ/L (98-107); CREATININE FOR GFR 0.45 MG/DL (0.55-1.30); GLOMERULAR FILTRATION RATE > 60.0 (>39); GLUCOSE, FASTING 130 MG/DL (70-100); POTASSIUM SERUM 3.5 MEQ/L (3.5-5.1); SODIUM LEVEL 140 MEQ/L (136-145)
[2018-09-05] MEDS: SUCRALFATE 1 GM TAB PO SCH ×4 (08:23→20:31)
[2018-09-05] MEDS: FERROUS SULFATE 325MG TAB PO SCH ×2 (08:24→20:31)
[2018-09-05] MEDS: HumaLOG INSULIN (NovoLOG) PER UNIT SC SCH ×4 (08:24→20:32)
[2018-09-05] MEDS: amLODIPine 5 MG TAB PO SCH (08:25)
[2018-09-05] MEDS: PANTOPRAZOLE 40MG TAB (PROTONIX) PO SCH ×2 (08:25→20:31)
[2018-09-05] MEDS ORDERED: MORPHINE 1MG/ML IN 0.9% NACL 100ML IV BAG IV PRN (10:45)
[2018-09-05] MEDS ORDERED: SENOKOT S TAB PO PRN (11:00)
[2018-09-05] MEDS ORDERED: MOM 30ML SUSPENSION UDC PO PRN (11:00)
--- NOTE | 2018-09-05 11:22 | IPNPDOC ---
Date Seen The patient was seen on 09/05/18. Progress Note SUBJECTIVE: Patient immediately tells me that her toe is once again hurting her and is hurting more so that it was in previous days. She also tells me that her groin is once again oozing blood and she has had her dressing changed several times overnight. otherwise patient denies chest pain, shortness breath, nausea, vomiting, fevers, chills OBJECTIVE PHYSICAL EXAMINATION: VITAL SIGNS: Please see below GENERAL: Pleasant elderly frail woman lying in bed awake alert oriented speaking in complete sentences no acute distress. HEENT: Moist mucous membranes no elevation in CVP CARDIOVASCULAR: S1 S2 regular no additional heart sounds appreciated. RESPIRATORY: Clear to auscultation bilaterally no wheezes rhonchi or rales. ABDOMINAL: Bowel sounds present abdomen soft and nontender. EXTREMITIES: No clubbing cyanosis left foot, 1+ edema, the foot is cold and dusky were previously had been warm. Right groin dressing is blood stained and intact NEUROLOGICAL: Spontaneously moves all 4 extremities cranial 2 through 12 grossly intact no gross focal deficits appreciated PSYCHOLOGICAL: Appropriate LABORATORY DATA, MICROBIOLOGY: Please see below. IMAGING STUDIES: Chest x-ray:No acute cardiopulmonary process appreciated. Previously identified lung nodule in the left upper lung zone cannot be excluded. 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 Patent right axillofemoral bypass graft. Occlusion of femoral to femoral bypass graft. Metallic domo overlie the right lower quadrant, overlying a portion of the occluded graft. There is some air and fluid surrounding the occluded graft. I cannot exclude a developing abscess and clinical correlation and followup is recommended. Patent flow is seen through the right lower extremity as discussed above. Collateral flow is seen via multiple tiny collateral vessels in the left thigh reconstituting portions of the trifurcation arteries in the left calf. ASSESSMENT AND PLAN: This is a 78-year-old female with peripheral arterial disease. PROBLEMS: 1. Peripheral arterial disease: Today her foot does appear cold and dusky and asked nursing staff to return to vascular surgery. Unfortunately he does not seem as though she is tolerating thrombolysis heparin and she is actually transient worsening of her symptoms today. I suspect she may benefit from amputation will defer to vascular surgery. She is status post an angiogram yesterday 2. History of GI bleed: No evidence of any ongoing bleeding through her gastrointestinal tract at this time she did have endoscopy in June of this year which revealed angiectasia was treated with argon beam coagulation's, she is continued on PPI as well as Carafate. 3. Chronic anemia: Likely secondary to the above in addition with chronic disease related to her peripheral arterial disease as well as recent acute blood loss in her right groin previous incision site related to TPA use. She has received a transfusion with a positive response as above will continue to monitor hemoglobin and transfuse as needed, suspect she will need more blood in the near future. 4. Tobacco abuse: Cessation counseling provided previously 5. Dyslipidemia: Continue with statin 6. Diabetes: Continue with insulin sliding scale 7. HTN: Controlled con't with amlodipine 8. COPD: Stable at her baseline after status 9. Moderate protein calorie malnutrition: Encouraged by mouth intake 10. Constipation: I'll provide her with a bowel regimen DVT prophylaxis: Heparin drip TPA DISPOSITION: Pending vascular clearance stabilization of hemoglobin and then PT evaluation VS, I&O, 24H, Fishbone Vital Signs/I&O Vital Signs Date Time Temp Pulse Resp B/P (MAP) Pulse Ox O2 Delivery O2 Flow Rate FiO2 09/05/18 10:00 99 15 102/51 (68) 98 09/05/18 08:00 99.3 I&O- Last 24 Hours up to 6 AM 09/05/18 06:00 Intake Total 1107.0 ml Output Total 1050 ml Balance 57.0 ml Laboratory Data 24H LABS Laboratory Tests 2 09/04/18 11:45: Nucleated Red Blood Cells % (auto) 0.0, Activated Partial Thromboplast Time 39.4H, Fibrinogen 255 09/04/18 11:49: Bedside Glucose (Misc Panel) 138H 09/04/18 17:50: Nucleated Red Blood Cells % (auto) 0.0, Activated Partial Thromboplast Time 42.6H, Fibrinogen 257 09/04/18 20:41: Bedside Glucose (Misc Panel) 122H 09/04/18 23:45: Nucleated Red Blood Cells % (auto) 0.0, Activated Partial Thromboplast Time 58.4H, Fibrinogen 253 09/05/18 05:58: Nucleated Red Blood Cells % (auto) 0.0, Activated Partial Thromboplast Time 52.3H, Fibrinogen 237, Anion Gap 6L, Glomerular Filtration Rate > 60.0, Blood Urea Nitrogen 10, Creatinine 0.45L, Sodium Level 140, Potassium Level 3.5, Chloride Level 109H, Carbon Dioxide Level 25, Calcium Level 7.1L 09/05/18 07:46: Bedside Glucose (Misc Panel) 152H CBC/BMP Laboratory Tests 09/04/18 11:45 Red Blood Count 3.35 L, Mean Corpuscular Volume 90.1, Mean Corpuscular Hemoglobin 28.1, Mean Corpuscular Hemoglobin Concent 31.1 L, Red Cell Distribution Width 20.1 H 09/04/18 17:50 Red Blood Count 3.26 L, Mean Corpuscular Volume 89.9, Mean Corpuscular Hemoglobin 27.9, Mean Corpuscular Hemoglobin Concent 31.1 L, Red Cell Distribution Width 20.2 H 09/04/18 23:45 Red Blood Count 2.98 L, Mean Corpuscular Volume 89.9, Mean Corpuscular Hemoglobin 27.9, Mean Corpuscular Hemoglobin Concent 31.0 L, Red Cell Distribution Width 20.0 H 09/05/18 05:58 Red Blood Count 2.92 L, Mean Corpuscular Volume 89.4, Mean Corpuscular Hemoglobin 27.7, Mean Corpuscular Hemoglobin Concent 31.0 L, Red Cell Distribution Width 19.9 H, Calcium Level 7.1 L BETTY MERCADO MD Sep 05, 2018 11:22
[2018-09-05] MEDS: NS 1,000 ML IV SCH (15:48)
[2018-09-05 18:25] LABS: HEMATOCRIT 33.3 % (36.0-47.0); HEMOGLOBIN 10.6 g/dl (12.0-15.5)
[2018-09-05] MEDS: ATORVASTATIN 20 MG TAB PO SCH (20:31)
[2018-09-06] VITALS (12 sets, daily range): BP systolic 110–149; BP diastolic 53–79
[2018-09-06] MEDS: SODIUM CHLORIDE 0.9% INJ 10 ML SYR IV SCH ×2 (06:00→17:44)
[2018-09-06] MEDS: HumaLOG INSULIN (NovoLOG) PER UNIT SC SCH ×4 (07:30→20:20)
[2018-09-06] MEDS: PANTOPRAZOLE 40MG TAB (PROTONIX) PO SCH ×2 (09:13→20:20)
[2018-09-06] MEDS: SUCRALFATE 1 GM TAB PO SCH ×5 (09:13→20:20)
[2018-09-06] MEDS: FERROUS SULFATE 325MG TAB PO SCH ×2 (09:13→20:20)
[2018-09-06] MEDS: amLODIPine 5 MG TAB PO SCH (09:14)
[2018-09-06] MEDS: MORPHINE 1MG/ML IN 0.9% NACL 100ML IV BAG IV PRN (11:57)
--- NOTE | 2018-09-06 13:15 | IPNPDOC ---
Date Seen The patient was seen on 09/06/18. Progress Note SUBJECTIVE: Patient is unchanged from the previous day. She tells me that it still feels cold she has difficulty moving it. otherwise patient denies chest pain, shortness breath, nausea, vomiting, fevers, chills OBJECTIVE PHYSICAL EXAMINATION: VITAL SIGNS: Please see below GENERAL: Pleasant elderly frail woman lying in bed awake alert oriented speaking in complete sentences no acute distress. She appears somewhat more fatigued today HEENT: Moist mucous membranes no elevation in CVP CARDIOVASCULAR: S1 S2 regular no additional heart sounds appreciated RESPIRATORY: Clear to auscultation bilaterally no wheezes rhonchi or rales ABDOMINAL: Bowel sounds present abdomen soft and nontender EXTREMITIES: No clubbing cyanosis left foot, 1+ edema, the foot is cold and dusky similar to previous day. Right groin dressing clean dry and intact NEUROLOGICAL: Spontaneously moves all 4 extremities cranial 2 through 12 grossly intact no gross focal deficits appreciated PSYCHOLOGICAL: Appropriate LABORATORY DATA, MICROBIOLOGY: Please see below. IMAGING STUDIES: Chest x-ray:No acute cardiopulmonary process appreciated. Previously identified lung nodule in the left upper lung zone cannot be excluded. 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 Patent right axillofemoral bypass graft. Occlusion of femoral to femoral bypass graft. Metallic domo overlie the right lower quadrant, overlying a portion of the occluded graft. There is some air and fluid surrounding the occluded graft. I cannot exclude a developing abscess and clinical correlation and followup is recommended. Patent flow is seen through the right lower extremity as discussed above. Collateral flow is seen via multiple tiny collateral vessels in the left thigh reconstituting portions of the trifurcation arteries in the left calf. ASSESSMENT AND PLAN: This is a 78-year-old female with peripheral arterial disease. PROBLEMS: 1. Peripheral arterial disease: Once again Today her foot does appear cold and dusky as per vascular surgery's oral recommendations plan is for potential amputation. We'll defer to vascular surgery when this can be arranged. We'll transfuse her when necessary, she appears to have failed all other limbs sparing therapies. Vascular surgery help greatly appreciated 2. History of GI bleed: No evidence of any ongoing bleeding through her gastrointestinal tract at this time she did have endoscopy in June of this year which revealed angiectasia was treated with argon beam coagulation's, she is continued on PPI as well as Carafate. 3. Acute on Chronic anemia: Mostly secondary to bleeding in her right groin while on TPA. We will continue to monitor H&H and transfuse as needed. She certainly has chronic disease recent GI bleed as well she has received several units of transfusion during this hospitalization. 4. Tobacco abuse: Cessation counseling provided previously 5. Dyslipidemia: Continue with statin 6. Diabetes: Continue with insulin sliding scale 7. HTN: Controlled con't with amlodipine 8. COPD: Stable at her baseline after status 9. Moderate protein calorie malnutrition: Encouraged by mouth intake 10. Constipation: She has been provided with a bowel regimen DVT prophylaxis: Heparin drip DISPOSITION: Likely amputation followed by PT VS, I&O, 24H, Fishbone Vital Signs/I&O Vital Signs Date Time Temp Pulse Resp B/P (MAP) Pulse Ox O2 Delivery O2 Flow Rate FiO2 09/06/18 12:00 98.1 91 18 137/73 (94) 95 I&O- Last 24 Hours up to 6 AM 09/06/18 06:00 Intake Total 1350 ml Output Total 825 ml Balance 525 ml Laboratory Data 24H LABS Laboratory Tests 2 09/05/18 17:00: Bedside Glucose (Misc Panel) 162H 09/05/18 20:30: Bedside Glucose (Misc Panel) 89 09/06/18 08:30: Bedside Glucose (Misc Panel) 142H 09/06/18 11:48: Bedside Glucose (Misc Panel) 144H CBC/BMP Laboratory Tests 09/05/18 17:59 BETTY MERCADO MD Sep 06, 2018 13:15
[2018-09-06 14:20] LABS: HEMATOCRIT 36.3 % (36.0-47.0); HEMOGLOBIN 11.4 g/dl (12.0-15.5); MEAN CORPUSCULAR HEMOGLOBIN 28.3 pg (27.0-33.0); MEAN CORPUSCULAR HGB CONC 31.4 g/dl (32.0-36.5); MEAN CORPUSCULAR VOLUME 90.1 fl (80.0-96.0); PLATELET COUNT, AUTOMATED 297 10^3/uL (150-450); RED BLOOD COUNT 4.03 10^6/uL (4.00-5.40); WHITE BLOOD COUNT 10.9 10^3/uL (4.0-10.0)
[2018-09-06 14:40] LABS: BLOOD UREA NITROGEN 9 MG/DL (7-18); CALCIUM LEVEL 7.5 MG/DL (8.8-10.2); CARBON DIOXIDE LEVEL 28 MEQ/L (21-32); CHLORIDE LEVEL 107 MEQ/L (98-107); CREATININE FOR GFR 0.53 MG/DL (0.55-1.30); GLOMERULAR FILTRATION RATE > 60.0 (>39); GLUCOSE, FASTING 136 MG/DL (70-100); POTASSIUM SERUM 3.2 MEQ/L (3.5-5.1); SODIUM LEVEL 142 MEQ/L (136-145)
[2018-09-06] MEDS: NS 1,000 ML IV SCH (15:48)
[2018-09-06] MEDS ORDERED: KCL 10MEQ/100ML SWI (KRUN) 10 MEQ in APPROPRIATE DILUENT 1 EA IV ONE (17:00)
[2018-09-06] MEDS: PIPERACILLIN/TAZOBACTAM SOD 3.375 GM in D5W MINI-BAG PLUS 50 ML IV SCH ×2 (18:54→22:57)
[2018-09-06] MEDS: ATORVASTATIN 20 MG TAB PO SCH (20:20)
[2018-09-07] VITALS (19 sets, daily range): BP systolic 77–144; BP diastolic 53–95
[2018-09-07] MEDS: PIPERACILLIN/TAZOBACTAM SOD 3.375 GM in D5W MINI-BAG PLUS 50 ML IV SCH ×4 (05:15→23:32)
[2018-09-07 05:33] LABS: HEMATOCRIT 31.3 % (36.0-47.0); HEMOGLOBIN 10.1 g/dl (12.0-15.5); MEAN CORPUSCULAR HGB CONC 32.3 g/dl (32.0-36.5); MEAN CORPUSCULAR VOLUME 86.7 fl (80.0-96.0); PLATELET COUNT, AUTOMATED 288 10^3/uL (150-450); RED BLOOD COUNT 3.61 10^6/uL (4.00-5.40); WHITE BLOOD COUNT 18.1 10^3/uL (4.0-10.0)
[2018-09-07 05:51] LABS: BLOOD UREA NITROGEN 10 MG/DL (7-18); CALCIUM LEVEL 7.2 MG/DL (8.8-10.2); CARBON DIOXIDE LEVEL 25 MEQ/L (21-32); CHLORIDE LEVEL 110 MEQ/L (98-107); CREATININE FOR GFR 0.54 MG/DL (0.55-1.30); GLOMERULAR FILTRATION RATE > 60.0 (>39); GLUCOSE, FASTING 149 MG/DL (70-100); POTASSIUM SERUM 3.3 MEQ/L (3.5-5.1); SODIUM LEVEL 142 MEQ/L (136-145)
[2018-09-07] MEDS: SODIUM CHLORIDE 0.9% INJ 10 ML SYR IV SCH ×2 (06:08→18:00)
[2018-09-07] MEDS: SUCRALFATE 1 GM TAB PO SCH ×4 (07:30→23:01)
[2018-09-07] MEDS: HumaLOG INSULIN (NovoLOG) PER UNIT SC SCH ×4 (07:30→23:00)
--- NOTE | 2018-09-07 08:03 | REP ---
CT CHEST WITHOUT IV CONTRAST: CT chest performed without IV contrast. Saggital and coronal reconstruction images are performed. In the right upper lobe there is a spiculated mass measuring 1.3 x 0.8 cm. In the left upper lobe, there is a spiculated mass measuring 1.9 x 2.2 cm. There are scattered interstitial fibrotic changes. In the right lower lobe, there is diffuse peribronchial thickening with mild interstitial infiltrate. I do not see evidence of consolidating infiltrate bilaterally. Bilateral axillary femoral bypass grafts are noted. There is atherosclerotic calcification of the thoracic aorta with no aneurysm. The heart is normal in size. There is no pleural or pericardial effusion. Lymphadenopathy in the AP window measures approximately 2.7 x 1.4 cm. There are a few other subcentimeter mediastinal lymph nodes present. No axillary adenopathy is seen. The visualized upper abdominal structures again demonstrate biliary air, multiple calcified granulomas in the spleen, a biliary stent and right adrenal gland thickening as noted on the study of 08/28/2018. IMPRESSION: Spiculated mass is seen in both the right upper lobe and left upper lobe. Diffuse peribronchial thickening in the right lower lobe with mild interstitial infiltrate in that region. Adenopathy in the AP window. Electronically Signed by Allan Omalley MD 09/07/2018 08:42 A
[2018-09-07] MEDS: PANTOPRAZOLE 40MG TAB (PROTONIX) PO SCH ×2 (09:35→23:01)
[2018-09-07] MEDS: FERROUS SULFATE 325MG TAB PO SCH ×2 (09:37→23:01)
[2018-09-07] MEDS: amLODIPine 5 MG TAB PO SCH (09:37)
[2018-09-07] MEDS ORDERED: diazePAM 5 MG TAB PO ONE ×2 (11:30→17:45)
--- NOTE | 2018-09-07 11:46 | IPNPDOC ---
Date Seen The patient was seen on 09/07/18. Progress Note Overnight events: Patient had been utilizing her morphine [employer] been somewhat more lethargic with eating pudding shortly thereafter she began to desaturate did cough up a significant degree of reporting that was concern for possible aspiration event. She was hypoxic which overnight did improve SUBJECTIVE: Patient tells me she is feeling better, she's had no episodes of coughing or choking in her breathing is more easily this morning. She continues to have pain in her foot. otherwise patient denies chest pain, shortness breath, nausea, vomiting, fevers, chills OBJECTIVE PHYSICAL EXAMINATION: VITAL SIGNS: Please see below GENERAL: Pleasant elderly frail woman lying in bed awake alert oriented speaking in complete sentences no acute distress. HEENT: Moist mucous membranes no elevation in CVP CARDIOVASCULAR: S1 S2 regular no additional heart sounds appreciated RESPIRATORY: Clear to auscultation bilaterally some bibasilar Rales ABDOMINAL: Bowel sounds present abdomen soft and nontender EXTREMITIES: No clubbing cyanosis left foot, 1+ edema, the foot is cold and dus ky similar to previous day. Right groin dressing clean dry and intact NEUROLOGICAL: Spontaneously moves all 4 extremities cranial 2 through 12 grossly intact no gross focal deficits appreciated PSYCHOLOGICAL: Appropriate LABORATORY DATA, MICROBIOLOGY: Please see below. IMAGING STUDIES: Chest x-ray:No acute cardiopulmonary process appreciated. Previously identified lung nodule in the left upper lung zone cannot be excluded. 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 Patent right axillofemoral bypass graft. Occlusion of femoral to femoral bypass graft. Metallic domo overlie the right lower quadrant, overlying a portion of the occluded graft. There is some air and fluid surrounding the occluded graft. I cannot exclude a developing abscess and clinical correlation and followup is recommended. Patent flow is seen through the right lower extremity as discussed above. Collateral flow is seen via multiple tiny collateral vessels in the left thigh reconstituting portions of the trifurcation arteries in the left calf. CT chest: 09/06/2018: Spiculated mass is seen in both the right upper lobe and left upper lobe. Diffuse peribronchial thickening in the right lower lobe with mild interstitial infiltrate in that region. Adenopathy in the AP window. ASSESSMENT AND PLAN: This is a 78-year-old female with peripheral arterial disease. PROBLEMS: 1. Peripheral arterial disease: Once again Today her foot does appear cold and dusky as per vascular surgery's oral recommendations plan is for potential amputation. I've told likely today. She appears to have failed all other limbs sparing therapies. Vascular surgery help greatly appreciated 2. History of GI bleed: No evidence of any ongoing bleeding through her gastrointestinal tract at this time she did have endoscopy in June of this year which revealed angiectasia was treated with argon beam coagulation's, she is continued on PPI as well as Carafate. 3. Acute on Chronic anemia: Mostly secondary to bleeding in her right groin while on TPA. We will continue to monitor H&H and transfuse as needed. She certainly has chronic disease recent GI bleed as well she has received several units of transfusion during this hospitalization. She is currently nothing by mouth for possible procedure 4. Tobacco abuse: Cessation counseling provided previously 5. Dyslipidemia: Continue with statin 6. Diabetes: Continue with insulin sliding scale 7. HTN: Controlled con't with amlodipine 8. COPD: Stable at her baseline after status 9. Moderate protein calorie malnutrition: Encouraged by mouth intake 10. Constipation: She has been provided with a bowel regimen 11. Spiculated lung masses outpatient follow-up 12. Hypoxia: Secondary to working [employer] and possible aspiration she is on empiric antibiotics at this time appears to be a resolving. Speech therapy eval pending DVT prophylaxis: Heparin drip DISPOSITION: Likely amputation followed by PT VS, I&O, 24H, Alo Vital Signs/I&O Vital Signs Date Time Temp Pulse Resp B/P (MAP) Pulse Ox O2 Delivery O2 Flow Rate FiO2 09/07/18 09:37 93 124/60 09/07/18 08:00 98.6 21 93 2.0 09/07/18 04:00 50 I&O- Last 24 Hours up to 6 AM 09/07/18 05:59 Intake Total 295 ml Output Total 600 ml Balance -305 ml Laboratory Data 24H LABS Laboratory Tests 2 09/06/18 11:48: Bedside Glucose (Misc Panel) 144H 09/06/18 13:52: Nucleated Red Blood Cells % (auto) 0.0, Anion Gap 7L, Glomerular Filtration Rate > 60.0, Blood Urea Nitrogen 9, Creatinine 0.53L, Sodium Level 142, Potassium Level 3.2L, Chloride Level 107, Carbon Dioxide Level 28, Calcium Level 7.5L 09/06/18 17:30: Bedside Glucose (Misc Panel) 223H 09/06/18 20:19: Bedside Glucose (Misc Panel) 119H 09/07/18 05:05: Nucleated Red Blood Cells % (auto) 0.0, Anion Gap 7L, Glomerular Filtration Rate > 60.0, Blood Urea Nitrogen 10, Creatinine 0.54L, Sodium Level 142, Potassium Level 3.3L, Chloride Level 110H, Carbon Dioxide Level 25, Calcium Level 7.2L CBC/BMP Laboratory Tests 09/06/18 13:52 Red Blood Count 4.03, Mean Corpuscular Volume 90.1, Mean Corpuscular Hemoglobin 28.3, Mean Corpuscular Hemoglobin Concent 31.4 L, Red Cell Distribution Width 19.4 H, Calcium Level 7.5 L 09/07/18 05:05 Red Blood Count 3.61 L, Mean Corpuscular Volume 86.7, Mean Corpuscular Hemoglobin 28.0, Mean Corpuscular Hemoglobin Concent 32.3, Red Cell Distribution Width 18.8 H, Calcium Level 7.2 L BETTY MERCADO MD Sep 07, 2018 11:45
--- NOTE | 2018-09-07 12:07 | IPNPDOC ---
Date Seen The patient was seen on 09/07/18. Progress Note Ms Hale is a very pleasant patient of Dr Martin's whom I saw today for the first time. I have reviewed her H&P. She was admitted 08/23/18 with ischemic LLE 2/2 longstanding distal aortic B ALFONSO occlusion and failed L ax-fem bypass but h/o patent R ax-fem bypass and R to L femfem bypass, but the fem-fem bypass had occluded despite multiple revisions. Dr Martin did a thrombolysis, but it was not successful and I reviewed her imaging- she has some collateral flow to the profunda, which is perfusing the thigh, but almost no flow below the knee. She is in excruciating pain, and her LLE is cold, blue, numb, and she cannot move her toes. The limb is not salvageable. Her RLE is warm and well perfused. Her grandaughter is at the bedside. We all went over the risks, benefits and alternatives to a L AKA today. The patient is very agreeable and is asking to proceed as soon as possible. Informed consent obtained. Will add this case on for today. 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 VS, I&O, 24H, Fishbone Vital Signs/I&O Vital Signs Date Time Temp Pulse Resp B/P (MAP) Pulse Ox O2 Delivery O2 Flow Rate FiO2 09/07/18 09:37 93 124/60 09/07/18 08:00 98.6 21 93 2.0 09/07/18 04:00 50 I&O- Last 24 Hours up to 6 AM 09/07/18 06:00 Intake Total 280 ml Output Total 600 ml Balance -320 ml Laboratory Data 24H LABS Laboratory Tests 2 09/06/18 13:52: Nucleated Red Blood Cells % (auto) 0.0, Anion Gap 7L, Glomerular Filtration Rate > 60.0, Blood Urea Nitrogen 9, Creatinine 0.53L, Sodium Level 142, Potassium Level 3.2L, Chloride Level 107, Carbon Dioxide Level 28, Calcium Level 7.5L 09/06/18 17:30: Bedside Glucose (Misc Panel) 223H 09/06/18 20:19: Bedside Glucose (Misc Panel) 119H 09/07/18 05:05: Nucleated Red Blood Cells % (auto) 0.0, Anion Gap 7L, Glomerular Filtration Rate > 60.0, Blood Urea Nitrogen 10, Creatinine 0.54L, Sodium Level 142, Potassium Level 3.3L, Chloride Level 110H, Carbon Dioxide Level 25, Calcium Level 7.2L 09/07/18 11:54: Bedside Glucose (Misc Panel) 156H CBC/BMP Laboratory Tests 09/06/18 13:52 Red Blood Count 4.03, Mean Corpuscular Volume 90.1, Mean Corpuscular Hemoglobin 28.3, Mean Corpuscular Hemoglobin Concent 31.4 L, Red Cell Distribution Width 19.4 H, Calcium Level 7.5 L 09/07/18 05:05 Red Blood Count 3.61 L, Mean Corpuscular Volume 86.7, Mean Corpuscular Hemoglobin 28.0, Mean Corpuscular Hemoglobin Concent 32.3, Red Cell Distribution Width 18.8 H, Calcium Level 7.2 L JOSE J LOVING MD Sep 07, 2018 12:07
[2018-09-07] MEDS: KCL 10MEQ/100ML SWI (KRUN) 10 MEQ in APPROPRIATE DILUENT 1 EA IV SCH (13:00)
[2018-09-07] MEDS: NS 1,000 ML IV SCH (15:48)
[2018-09-07] MEDS ORDERED: PROPOFOL 200 MG/20 ML VIAL As Ordered ONE (16:25)
[2018-09-07] MEDS ORDERED: LIDOCAINE 2% INJ 100 MG/5 ML SDV (FOR ANES.) As Ordered ONE (16:25)
[2018-09-07] MEDS ORDERED: ROCURONIUM BROMIDE 50 MG/5 ML VIAL As Ordered ONE (16:26)
[2018-09-07] MEDS ORDERED: ONDANSETRON 4MG/2ML VIAL (J2405) As Ordered ONE (16:26)
[2018-09-07] MEDS ORDERED: MIDAZOLAM INJ 2 MG/2 ML VIAL (J2250) As Ordered ONE (16:27)
[2018-09-07] MEDS ORDERED: fentaNYL 100 MCG/2 ML INJECTION (J3010) As Ordered ONE ×2 (16:27→20:08)
[2018-09-07] MEDS ORDERED: KETAMINE HCL 200 MG/20 ML VIAL As Ordered ONE (16:27)
[2018-09-07] MEDS ORDERED: PHENYLephrine HCL 500 MCG/5 ML (100MCG/ML) SYRINGE (J2370) As Ordered ONE ×2 (19:55→20:33)
[2018-09-07] MEDS ORDERED: ACETAMINOPHEN 1000MG 100ML IV BTL (OFIRMEV) (J0131 PER 10MG) As Ordered ONE (19:58)
[2018-09-07] MEDS ORDERED: SUGAMMADEX SODIUM 500 MG/5 ML VIAL (BRIDION) As Ordered ONE (19:58)
[2018-09-07] MEDS ORDERED: METOCLOPRAMIDE INJ 10MG/2ML VIAL (J2765) As Ordered ONE (19:59)
[2018-09-07] MEDS ORDERED: BUPIVACAINE HCL 0.25% 30 ML VIAL As Ordered ONE (20:13)
[2018-09-07] MEDS ORDERED: HYDROmorphone HCL 2 MG/ML 1ML VIAL (J1170) As Ordered ONE (20:51)
--- NOTE | 2018-09-07 21:14 | ROOPDOC ---
[facility] Report Of Operation Report of Operation DATE OF PROCEDURE: 09/07/18 PREPROCEDURE DIAGNOSES: Ischemic left lower extremity POSTPROCEDURE DIAGNOSES: Same PROCEDURE: Left above-knee amputation SURGEON: Jose J Morton MD ANESTHESIA: General endotracheal anesthesia and local INDICATION FOR PROCEDURE: Ms. Hale is a very pleasant 78-year-old patient with a long-standing history of severe peripheral vascular disease, aortoiliac occlusion, status post patent right axillofemoral bypass, status post failed left axillofemoral bypass, status post failed right to left femorofemoral bypass after multiple revisions, now with an extremely painful ischemic nonviable left lower extremity. Risks benefits and alternatives to a left above-knee amputation were explained to the patient and she was agreeable to proceed. We did discuss that she has very limited arterial collateral flow to her left profunda, and it is possible this will be inadequate to heel and above-knee amputation, although we are hopeful it will be sufficient. Informed consent was obtained. PROCEDURE: The patient was brought to the OR in stable condition and general anesthesia and antibiotics were administered without complication. Her left lower extremity was prepped and draped in a sterile fashion. A timeout was performed. A fishmouth incision was marked at the distal femur with a marking pen [id number]. A knife was used to incise the skin and Bovie cautery was used to continue this through the subcutaneous tissue and muscle. The femur was encountered and skeletonized proximally and distally to retract the soft tissue of the femur circumferentially. The popliteal artery and vein were suture ligated and divided. A Gigli saw was used to transect the femur several c entimeters more proximal than our skin incision, with a slight anterior bevel. Bovie cautery was used to complete the posterior amputation flap. The lower leg was sent for pathology. The sciatic nerve was high ligated. Marcaine local anesthesia was administered to the perineural tissue, and also to the superficial subcutaneous tissue. A rasp was used to smooth the bone circumferent ially. 2 osteotomies were made at 10:00 and 2:00 in the distal femur. The stump was copiously irrigated with warm saline. Bovie cautery was used to complete hemostasis. The posterior muscle fascia was attached to the anterior aspect of the femur to prevent retraction of the muscle with 2-0 Vicryl suture. The muscle fascia was approximated across the incision with interrupted 2-0 Vicryl sutures. The superficial fascia was closed with [id number] Vicryl sutures making sure there was in the closure. The skin edges were approximated without tension with interrupted nylon mattress sutures, and the rest of the skin was closed with domo. The wound was cleaned and dried. Xeroform, fluffs, kerlix were used to dress the incision. The patient was allowed to awaken from anesthesia and was taken to PACU in stable condition. SPECIMEN: Left lower leg sent for pathology DRAINS: None. ESTIMATED BLOOD LOSS: Approximately 25 mL. COMPLICATIONS: None. PLAN: It is okay for activity as tolerated with assistance, and to proceed with physical and occupational therapy as tolerated. Resume Pre-Op diet. Further management per Dr. Martin when he returns tomorrow. JOSE J MORTON MD Sep 07, 2018 21:14
[2018-09-07] MEDS ORDERED: HYDROMORPHONE HCL 0.5 MG/ 0.5 ML SYRINGE (J1170 PER 1) IV PRN (21:30)
[2018-09-07] MEDS ORDERED: LR 1,000 ML IV SCH (21:30)
[2018-09-07] MEDS ORDERED: oxyCODONE 5MG TAB PO PRN (21:30)
[2018-09-07] MEDS ORDERED: fentaNYL 100 MCG/2 ML INJECTION (J3010) IV PRN (21:30)
[2018-09-07] MEDS ORDERED: ONDANSETRON 4MG/2ML VIAL (J2405) IV PRN (21:30)
[2018-09-07] MEDS: ATORVASTATIN 20 MG TAB PO SCH (23:02)
[2018-09-07] MEDS: diazePAM 5 MG TAB PO PRN (23:07)
[2018-09-08] VITALS (25 sets, daily range): BP systolic 88–138; BP diastolic 50–94
[2018-09-08] MEDS: MORPHINE 1MG/ML IN 0.9% NACL 100ML IV BAG IV PRN (00:58)
[2018-09-08 05:48] LABS: HEMOGLOBIN 8.6 g/dl (12.0-15.5); MEAN CORPUSCULAR HEMOGLOBIN 28.2 pg (27.0-33.0); MEAN CORPUSCULAR HGB CONC 30.7 g/dl (32.0-36.5); MEAN CORPUSCULAR VOLUME 91.8 fl (80.0-96.0); PLATELET COUNT, AUTOMATED 278 10^3/uL (150-450); RED BLOOD COUNT 3.05 10^6/uL (4.00-5.40); WHITE BLOOD COUNT 10.1 10^3/uL (4.0-10.0)
[2018-09-08] MEDS: PIPERACILLIN/TAZOBACTAM SOD 3.375 GM in D5W MINI-BAG PLUS 50 ML IV SCH ×4 (05:48→22:29)
[2018-09-08] MEDS: SODIUM CHLORIDE 0.9% INJ 10 ML SYR IV SCH ×2 (05:48→18:54)
[2018-09-08 06:12] LABS: BLOOD UREA NITROGEN 11 MG/DL (7-18); CARBON DIOXIDE LEVEL 26 MEQ/L (21-32); CHLORIDE LEVEL 112 MEQ/L (98-107); CREATININE FOR GFR 0.39 MG/DL (0.55-1.30); GLOMERULAR FILTRATION RATE > 60.0 (>39); GLUCOSE, FASTING 108 MG/DL (70-100); POTASSIUM SERUM 3.1 MEQ/L (3.5-5.1); SODIUM LEVEL 144 MEQ/L (136-145)
[2018-09-08] MEDS: HumaLOG INSULIN (NovoLOG) PER UNIT SC SCH ×4 (07:30→20:58)
[2018-09-08] MEDS: SUCRALFATE 1 GM TAB PO SCH ×4 (07:30→20:58)
[2018-09-08] MEDS: KCL 10MEQ/100ML SWI (KRUN) 10 MEQ in APPROPRIATE DILUENT 1 EA IV SCH ×4 (09:33→13:32)
[2018-09-08] MEDS: POTASSIUM CHLORIDE 10 MEQ SR TABLET PO SCH (09:34)
[2018-09-08] MEDS: amLODIPine 5 MG TAB PO SCH (09:34)
[2018-09-08] MEDS: FERROUS SULFATE 325MG TAB PO SCH ×2 (09:34→20:58)
[2018-09-08] MEDS: PANTOPRAZOLE 40MG TAB (PROTONIX) PO SCH ×2 (09:34→20:57)
--- NOTE | 2018-09-08 10:26 | NUR ---
Bedside swallow assessment attempted but pt refused to eat/drink stating that she was tired and did not feel well. Nursing staff reported that she has drank some thin liquid and took her pills with no apparent difficulty earlier in the morning, but has not eaten since her surgery. ST will try swallowing evaluation again at later time. Addendum: 09/08/18 at 1035 by MICHAEL HERRON Amended: Links added.
--- NOTE | 2018-09-08 10:47 | IPNPDOC ---
Date Seen The patient was seen on 09/08/18. Progress Note Vascular Surgery. Dr Martin. 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 Revision of Ax Bifem graft 08/16/[address] Martin. Patient presented in ER 08/23/18 with chief complaints of cold left foot admission was arranged, vascular surgery consulted. Thrombolysis attempted this admission but was not successful, POD1 S/P Lt AKA. HOSPITAL MEDICINE DIRECTOR helping with pain per pt. Last dose of Valium last evening. PAST MEDICAL HISTORY: Hypertension. Hyperlipidemia. Type 2 diabetes. COPD. ERCP June 2017 cholangitis/biliary stent. H/O upper and lower GI bleed. EGD on 04/22/2017 that showed multiple (more than 10) small angioectasia of the duodenum treated with argon-beam coagulation. Recent admission for UGIB, EGD 07/10/18 Three non-bleeding angioectasias in the stomach. Treated with argon beam coagulation. A few non-bleeding angioectasias in the duodenum. Treated with argon beam coagulation. Patent biliary stent. chronic anemia history of vascular disease status post bilateral common iliac artery and angioplasty and stenting. H/O DVT of the left lower extremity and was anticoagulated on warfarin until her admission for GI Bleeding March 2017. PAST SURGICAL HISTORY: Tonsillectomy. Bilateral common iliac artery angioplasty stenting. EGDs and colonoscopies. 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 Treated with argon beam coagulation. A few non-bleeding angioectasias in the duodenum. Treated with argon beam coagulation. Patent biliary stent. ERCP as above. Right-sided axillofemoral and [id number] fem/fem bypass undetermined date. PE: GEN: 78yoF. No acute distress. Alert and oriented x 3. HEENT: Normocephalic, atraumatic. Moist mucous membranes. CHEST: Regular rate and rhythm, +S1, +S2 LUNGS: Clear to auscultation bilaterally. No wheezes, rales, or rhonchi. ABD: Round, soft, non-tender, non-distended. +Bowel sounds throughout. No rebound or guarding. Previous surgical site with dressing Rt groin area, firm area surrounding , no warmth, fluctuance. EXT: No lower extremity edema appreciated. Lt AKA with dressing intact. SKIN: No rashes. NEURO: Alert and oriented x 3. Cranial nerves III-XII are intact. No focal deficits appreciated. A&P: S/P Rt AKA. POD1. Dr Martin following. Dr Martin planning to remove sheath in IR today. Dressing intact. Pain controlled with Morphine HOSPITAL MEDICINE DIRECTOR, Valium as needed. PT/OT chronic anemia. Monitor CBC. Hgb 8.6 Fe supplement BID. VS, I&O, 24H, Fishbone Vital Signs/I&O Vital Signs Date Time Temp Pulse Resp B/P (MAP) Pulse Ox O2 Delivery O2 Flow Rate FiO2 09/08/18 09:34 88 122/60 09/08/18 06:30 97 3.0 09/08/18 04:00 97.1 16 09/07/18 04:00 50 I&O- Last 24 Hours up to 6 AM 09/08/18 06:00 Intake Total 1552 ml Output Total 625 ml Balance 927 ml Laboratory Data 24H LABS Laboratory Tests 2 09/07/18 11:54: Bedside Glucose (Misc Panel) 156H 09/07/18 22:54: Bedside Glucose (Misc Panel) 135H 09/08/18 05:26: Nucleated Red Blood Cells % (auto) 0.0, Anion Gap 6L, Glomerular Filtration Rate > 60.0, Blood Urea Nitrogen 11, Creatinine 0.39L, Sodium Level 144, Potassium Level 3.1L, Chloride Level 112H, Carbon Dioxide Level 26, Calcium Level 7.0L CBC/BMP Laboratory Tests 09/08/18 05:26 Red Blood Count 3.05 L, Mean Corpuscular Volume 91.8, Mean Corpuscular Hemoglobin 28.2, Mean Corpuscular Hemoglobin Concent 30.7 L, Red Cell Distribution Width 18.5 H, Calcium Level 7.0 L Sunshine Allison Sep 08, 2018 10:47
[2018-09-08] MEDS: diazePAM 5 MG TAB PO PRN ×2 (11:18→20:57)
--- NOTE | 2018-09-08 14:31 | IPNPDOC ---
Text Note Date of Service The patient was seen on 09/08/18. NOTE S: patient states increased leg pain with movement. Using PATIENT SAFETY MANAGER. Awaiting IR removal of sheath today. states no N, no V, no CP, no SOB. Patient is being seen for severe PVD , s/p AKA on 09/07/18 O: Vitals as below General: pleasant elderly female, mild distress, AAOx3 HRRR LCTA noW/R/R Abdomen: soft NT ND NABS Ext: left AKA, bandaged; A/P: Hypokalemia Anemia 1. Peripheral arterial disease S/P left AKA after failed revascularizaiton - management per surgery 2 Acute on Chronic anemia: - the acute anemia is due to blood loss from TPA. Chronic anemia is secondary to chronic disease (DM, COPD, HTN and chronic GI bleed); Transfused 2 units on 09/03/18 and 2 units 09/05/18 3. History of GI bleed: no current bleeding; continue PPI/carafate 4. Tobacco abuse: Cessation counseling provided previously 5. Dyslipidemia: Continue with statin 6. Diabetes: Continue with insulin sliding scale 7. HTN: Controlled con't with amlodipine 8. COPD: Stable at her baseline after status 9. Moderate protein calorie malnutrition: Encouraged by mouth intake 10. Constipation: She has been provided with a bowel regimen 11. Spiculated lung masses outpatient follow-up 12. Hypoxia: Secondary to working PATIENT SAFETY MANAGER - resolved 13. Hypokalemia - IV/po replacement and monitor Current Medications Acetaminophen (Tylenol Tab) 650 mg Q4H PRN PO PAIN OR FEVER; Start 08/23/18 at 13:45 Acetaminophen/ Hydrocodone Bitart ([place], Anexsia 5/325) 1 tab Q6HP PRN PO MILD/MODERATE PAIN (PS 1-7) Last administered on 09/02/18at 20:28; Start 08/28/18 at 15:45; Stop 09/03/18 at 15:49; Status DC Acetaminophen/ Hydrocodone Bitart ([place], Anexsia 5/325) 2 tab Q4HP PRN PO SEVERE PAIN (PS 8-10) Last administered on 09/03/18at 12:21; Start 08/30/18 at 13: 00; Stop 09/03/18 at 15:49; Status DC Acetaminophen/ Hydrocodone Bitart ([place], Anexsia 5/325) 2 tab Q6HP PRN PO SEVERE PAIN (PS 8-10) Last administered on 08/30/18at 11:48; Start 08/28/18 at 15:45; Stop 08/30/18 at 12:56; Status DC Alteplase, Recombinant 10 mg/ Sodium Chloride 100 ml @ 4 mls/hr Q24H IV Last administered on 09/04/18at 21:19; Start 09/03/18 at 17:00; Stop 09/05/18 at 10:38; Status DC Alteplase, Recombinant 25 mg/ Sodium Chloride 250 ml @ 2.5 mls/hr Q24H IV Last administered on 09/01/18at 17:14; Start 09/01/18 at 17:00; Stop 09/02/18 at 13:41; Status DC Amlodipine Besylate (Norvasc) 5 mg DAILY PO Last administered on 09/08/18at 09:34; Start 08/23/18 at 09:00 Atorvastatin Calcium (Lipitor) 40 mg QHS PO Last administered on 09/07/18at 23:02; Start 08/23/18 at 21:00 Clopidogrel Bisulfate (PLAVix) 75 mg DAILY PO Last administered on 09/03/18at 08:06; Start 08/23/18 at 09:00; Stop 09/03/18 at 15:49; Status DC Dextrose (Dextrose 50%) 25 ml ASDIRECTED PRN IV SEE LABEL COMMENTS; Start 08/23/18 at 13:45 Dextrose (Dextrose 50%) 25 ml ASDIRECTED PRN IV SEE LABEL COMMENTS; Start 08/23/18 at 16:15; Status UNV Diazepam (Valium) 5 mg Q6HP PRN PO MUSCLE SPASMS Last administered on 09/08/18at 11:18; Start 09/07/18 at 21:15 Diphenhydramine HCl (Benadryl) 12.5 mg Q4HP PRN IV ITCHING; Start 09/03/18 at 16:00 Fentanyl Citrate (Sublimaze) 25 mcg Q5MP PRN IV MODERATE PAIN (PS 4-7); Start 09/07/18 at 21:30; Stop 09/07/18 at 22:29; Status DC Ferrous Sulfate (Ferrous Sulfate) 325 mg BID PO Last administered on 09/08/18at 09:34; Start 08/26/18 at 09:00 Glucagon (Glucagon) 1 mg ASDIRECTED PRN SC SEE LABEL COMMENTS; Start 08/23/18 at 13:45 Glucagon (Glucagon) 1 mg ASDIRECTED PRN SC SEE LABEL COMMENTS; Start 08/23/18 at 16:15; Status UNV Glucose (Glucose) 16 GM ASDIRECTED PRN PO SEE LABEL COMMENTS; Start 08/23/18 at 13:45 Glucose (Glucose) 16 GM ASDIRECTED PRN PO SEE LABEL COMMENTS; Start 08/23/18 at 16:15; Status UNV Heparin Sodium (Heparin (Flush)) 200 units ASDIRECTED PRN IV SEE LABEL COMMENTS Last administered on 08/31/18at 14:35; Start 08/25/18 at 16:00 Heparin Sodium (Heparin (Flush)) 200 units PICC IV Last administered on 09/08/18at 08:40; Start 08/25/18 at 18:00 Heparin Sodium (Heparin Flush Bag) 500 units ASDIRECTED XX ; Start 09/08/18 at 00:30 Heparin Sodium (Porcine) (Heparin) ASDIRECTED PRN IV SEE LABEL COMMENTS Last administered on 08/25/18at 06:13; Start 08/23/18 at 15:30; Stop 09/03/18 at 20:11; Status DC Heparin Sodium (Porcine) 17028 units/IV Miscellaneous Supplies 250 ml @ 8.5 mls/hr Q24H IV Last administered on 08/23/18at 13:11; Start 08/23/18 at 13:01; Stop 08/23/18 at 15:29; Status DC Heparin Sodium (Porcine) 35177 units/IV Miscellaneous Supplies 250 ml @ 0 mls/hr Q0M IV Last administered on 09/01/18at 17:34; Start 08/23/18 at 15:26; Stop 08/22 06/09 at 20:11; Status DC Heparin Sodium (Porcine) 50419 units/IV Miscellaneous Supplies 250 ml @ 6 mls/hr Q24H IV Last administered on 09/04/18at 21:19; Start 09/03/18 at 20:00; Stop 09/05/18 at 10:38; Status DC Home Med (Med Rec Complete!) ASDIRECTED XX ; Start 08/23/18 at 14:15; Stop 08/23/18 at 14:16; Status DC Hydromorphone HCl (Dilaudid) 0.4 mg Q5MP PRN IV MODERATE/SEVERE PAIN (PS 5-10); Start 09/07/18 at 21:30; Stop 09/07/18 at 22:29; Status DC Insulin Human Lispro (HumaLOG INSULIN) SEE PROTOCOL TABLE AC SC Last administered on 09/06/18at 17:44; Start 08/23/18 at 17:30 Insulin Human Lispro (HumaLOG INSULIN) SEE PROTOCOL TABLE Q6H SC ; Start 08/23/18 at 18:00; Stop 08/23/18 at 18:00; Status DC Insulin Human Lispro (HumaLOG INSULIN) SEE PROTOCOL TABLE QHS SC ; Start 08/23/18 at 21:00 Lactated Ringer's 1,000 ml @ 75 mls/hr [id number] IV ; Start 09/07/18 at 21:30; Stop 09/07/18 at 22:29; Status DC Magnesium Hydroxide (Milk Of Magnesia) 30 ml DAILYPRN PRN PO CONSTIPATION; Start 09/05/18 at 11:00 Miscellaneous (Unresolved Clarification Entry) SEE LABEL COMMENTS DAILY XX ; Start 08/29/18 at 09:00; Stop 08/29/18 at 17:16; Status DC Morphine Sulfate (Morphine Sulfate In 0.9%Nacl Iv Bag) 1 mg ASDIRECTED PRN IV SEE LABEL COMMENTS Last administered on 09/03/18at 19:17; Start 09/03/18 at 16:00; Stop 09/05/18 at 10:38; Status DC Morphine Sulfate (Morphine Sulfate In 0.9%Nacl Iv Bag) 1 mg ASDIRECTED PRN IV SEE LABEL COMMENTS Last administered on 09/05/18at 11:12; Start 09/05/18 at 10 :45; Stop 09/06/18 at 11:38; Status DC Morphine Sulfate (Morphine Sulfate In 0.9%Nacl Iv Bag) SEE PROTOCOL ASDIRECTED PRN IV SEE LABEL COMMENTS Last administered on 09/08/18at 00:58; Start 09/06/18 a t 11:45 Morphine Sulfate (Morphine Sulfate Inj) 4 mg Q1HP PRN IV SEVERE PAIN (PS 8-10) Last administered on 09/03/18at 13:27; Start 09/02/18 at 22:30; Stop 09/03/18 at 15:49; Status DC Morphine Sulfate (Morphine Sulfate Inj) 4 mg Q6HP PRN IV PAIN OR DISCOMFORT Last administered on 09/02/18at 21:29; Start 08/23/18 at 14:15; Stop 09/02/18 at 22:25; Status DC Nalbuphine HCl (Nubain) 2.5 mg Q6HP PRN IV PRURITIS; Start 09/03/18 at 16:00; Stop 09/10/18 at 15:59 Naloxone HCl (Narcan) 0.1 mg Q5MP PRN IV SEE LABEL COMMENTS; Start 09/03/18 at 16:00 Non-Formulary Medication (Epidural/PATIENT SAFETY MANAGER [place]) USE THIS ENTRY TO VEND ... Q1M PRN XX SEE LABEL COMMENTS; Start 09/03/18 at 16:00 Non-Formulary Medication (Heparin Iv Rate Change Documentation ml/ Hr) ASDIRECTED XX Last administered on 09/02/18at 12:33; Start 08/31/18 at 06:00; Stop 09/03/18 at 20:11; Status DC Non-Formulary Medication (Heparin Iv Rate Change Documentation ml/ Hr) ASDIRECTED XX Last administered on 08/26/18at 09:15; Start 08/23/18 at 15:30; Stop 08/28/18 at 15:29; Status DC Ondansetron HCl (ZOFRAN INJection) 4 mg Q4HP PRN IV NAUSEA OR VOMITING; Start 09/07/18 at 21:30; Stop 09/07/18 at 22:29; Status DC Ondansetron HCl (ZOFRAN INJection) 4 mg Q4HP PRN IV NAUSEA OR VOMITING Last administered on 09/01/18at 20:06; Start 08/23/18 at 14:15 Ondansetron HCl (ZOFRAN INJection) 4 mg Q6HP PRN IV NAUSEA; Start 09/03/18 at 16:00 Oxycodone HCl (Roxicodone, Oxyir) 5 mg ASDIRECTED PRN PO MILD/MODERATE PAIN (PS 1-7); Start 09/07/18 at 21:30; Stop 09/07/18 at 22:29; Status DC Oxycodone/ Acetaminophen (Percocet 5mg/ 325mg Tablet) 1 tab Q4HP PRN PO MILD/MODERATE PAIN (PS 1-7) Last administered on 08/27/18 20:17; Start 08/24/18 at 16:15; Stop 08/28/18 at 15:39; Status DC Oxycodone/ Acetaminophen (Percocet 5mg/ 325mg Tablet) 1 tab Q6HP PRN PO MILD/MODERATE PAIN (PS 1-7) Last administered on 08/24/18 11:54; Start 08/23/18 at 16:00; Stop 08/24/18 at 16:11; Status DC Oxycodone/ Acetaminophen (Percocet 5mg/ 325mg Tablet) 2 tab Q6HP PRN PO SEVERE PAIN (PS 8-10) Last administered on 08/28/18 10:43; Start 08/27/18 at 11:00; Stop 08/28/18 at 15:39; Status DC Pantoprazole Sodium (Protonix) 40 mg BID PO Last administered on 09/08/18 0 9:34; Start 08/23/18 at 09:00 Pantoprazole Sodium (Protonix) 40 mg DAILY PO ; Start 08/24/18 at 09:00; Status UNV Piperacillin Sod/ Tazobactam Sod 3.375 gm/Dextrose 50 ml @ 50 mls/hr Q6H IV Last administered on 09/08/18 11:53; Start 09/06/18 at 17:00 Potassium Chloride 10 meq/ IV Miscellaneous Supplies 100 ml @ 100 mls/hr Q1H IV Last administered on 09/07/18at 13:00; Start 09/07/18 at 12:00; Stop 09/07/18 at 13:59; Status DC Potassium Chloride 10 meq/ IV Miscellaneous Supplies 100 ml @ 100 mls/hr Q1H IV Last administered on 09/08/18 11:53; Start 09/08/18 at 09:00; Stop 09/08/18 at 12:59 Potassium Chloride (Micro-K Extencaps) 40 meq DAILY PO Last administered on 09/08/18at 09:34; Start 09/08/18 at 09:00 Senna/Docusate Sodium (Senokot S) 1 tab BIDP PRN PO CONSTIPATION Last administered on 09/05/18at 11:58; Start 09/05/18 at 11:00 Sodium Chloride 1,000 ml @ 15 mls/hr Q24H IV Last administered on 09/06/18at 15:48; Start 09/03/18 at 15:48 Sodium Chloride (Saline Lock Flush) 2 ml ASDIRECTED PRN IV SEE LABEL COMMENTS; Start 08/25/18 at 14:30; Status Cancel Sodium Chloride (Saline Lock Flush) 2 ml SLF IV Last administered on 08/26/18at 06:17; Start 08/25/18 at 22:00; Stop 08/26/18 at 22:11; Status DC Sodium Chloride (Saline Lock Flush) 10 ML PICC IV Last administered on 09/08/18at 05:48; Start 08/25/18 at 18:00 Sodium Chloride (Saline Lock Flush) 10ML ASDIRECTED PRN IV SEE LABEL COMMENTS Last administered on 08/31/18at 14:35; Start 08/25/18 at 16:00 Sucralfate (Carafate) 1 gm ACHS PO Last administered on 09/08/18at 11:53; Start 08/24/18 at 17:30 VS,Fishbone, I+O VS, Fishbone, I+O Laboratory Tests 09/08/18 05:26 Red Blood Count 3.05 L, Mean Corpuscular Volume 91.8, Mean Corpuscular Hemoglobin 28.2, Mean Corpuscular Hemoglobin Concent 30.7 L, Red Cell Distribution Width 18.5 H, Calcium Level 7.0 L Vital Signs Date Time Temp Pulse Resp B/P (MAP) Pulse Ox O2 Delivery O2 Flow Rate FiO2 09/08/18 09:34 88 122/60 09/08/18 06:30 97 3.0 09/08/18 04:00 97.1 16 09/07/18 04:00 50 I&O- Last 24 Hours up to 6 AM 09/08/18 06:00 Intake Total 1552 ml Output Total 625 ml Balance 927 ml HARISH QUICK DO Sep 08, 2018 12:28
--- NOTE | 2018-09-08 16:10 | NUR ---
Recommend continue regular solids and thin liquids. Pt tolerates w/o s/sx aspiration/penetration. No dysphagia tx. Addendum: 09/08/18 at 1611 by PAUL YOST [facility] SP Amended: Links added.
[2018-09-08] MEDS: NS 1,000 ML IV SCH (19:00)
[2018-09-08] MEDS: ATORVASTATIN 20 MG TAB PO SCH (20:58)
[2018-09-08] MEDS: NORCO, ANEXSIA 5/325MG TABLET (HYDROcodone/ACETAMINOPHEN) PO PRN (23:58)
[2018-09-09] VITALS: BP 121/60
[2018-09-09 04:00] VITALS: BP 129/68
[2018-09-09] MEDS: PIPERACILLIN/TAZOBACTAM SOD 3.375 GM in D5W MINI-BAG PLUS 50 ML IV SCH ×2 (04:59→11:27)
[2018-09-09] MEDS: NORCO, ANEXSIA 5/325MG TABLET (HYDROcodone/ACETAMINOPHEN) PO PRN ×2 (05:00→12:34)
[2018-09-09] MEDS: SODIUM CHLORIDE 0.9% INJ 10 ML SYR IV SCH (05:03)
[2018-09-09 05:19] LABS: HEMATOCRIT 30.7 % (36.0-47.0); HEMOGLOBIN 9.6 g/dl (12.0-15.5); MEAN CORPUSCULAR HEMOGLOBIN 28.6 pg (27.0-33.0); MEAN CORPUSCULAR HGB CONC 31.3 g/dl (32.0-36.5); MEAN CORPUSCULAR VOLUME 91.4 fl (80.0-96.0); PLATELET COUNT, AUTOMATED 304 10^3/uL (150-450); RED BLOOD COUNT 3.36 10^6/uL (4.00-5.40); WHITE BLOOD COUNT 11.5 10^3/uL (4.0-10.0)
[2018-09-09] MEDS: diazePAM 5 MG TAB PO PRN (05:37)
[2018-09-09 05:53] LABS: BLOOD UREA NITROGEN 7 MG/DL (7-18); CALCIUM LEVEL 6.9 MG/DL (8.8-10.2); CARBON DIOXIDE LEVEL 29 MEQ/L (21-32); CHLORIDE LEVEL 110 MEQ/L (98-107); CREATININE FOR GFR 0.42 MG/DL (0.55-1.30); GLOMERULAR FILTRATION RATE > 60.0 (>39); GLUCOSE, FASTING 123 MG/DL (70-100); POTASSIUM SERUM 3.9 MEQ/L (3.5-5.1); SODIUM LEVEL 142 MEQ/L (136-145)
[2018-09-09] MEDS ORDERED: TIOTROPIUM INHALER/CAPSULE (SPIRIVA) INH SCH (08:00)
--- NOTE | 2018-09-09 08:42 | IPNPDOC ---
Text Note Date of Service The patient was seen on 09/09/18. NOTE S: Patient being seen for PVD, s/p AKA (left). She is not on antiplatelet or anticoagulation therapy because of significant GI Bleed. Patient had been offered choice of continuing with plavix and endoscopy q3 months for GI bleed but chose NOT to have plavix and recurrent scopes. Case discussed with Dr Martin. Patient states no left leg pain today. She is tired but easily awakens. Her diabetes is well controlled Item Value Date Time Bedside Glucose (Misc Panel) 109 MG/DL 09/08/182055 Bedside Glucose (Misc Panel) 192 MG/DL H 09/08/18 1856 Bedside Glucose (Misc Panel) 124 MG/DL H 09/08/18 1156 Bedside Glucose (Misc Panel) 135 MG/DL H 09/07/18 2254 O: Vitals as below General: pleasant NAD, AAOx3 HRRR LCTA Ext: left AKA- dressed; right ankle trace edema A/P: 1. 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 Patient had been offered choice of continuing with plavix and endoscopy q3 months for GI bleed but chose NOT to have plavix and recurrent scopes; will start hep SC for DVT pr ophylaxis. 2 Acute on Chronic anemia: - the acute anemia is due to blood loss from GI Ble ed from plavix; Chronic anemia is secondary to chronic disease (DM, COPD, HTN and chronic GI bleed); Transfused 2 units on 09/03/18 and 2 units 09/05/18 3. History of GI bleed: no current bleeding; continue PPI/carafate; She is not on antiplatelet or anticoagulation therapy because of significant GI Bleed. Patient had been offered choice of continuing with plavix and endoscopy q3 months for GI bleed but chose NOT to have plavix and recurrent scopes 4. Tobacco abuse: Cessation counseling provided previously 5. Dyslipidemia: Continue with statin 6. Diabetes -without long-term insulin, no hypoglycemia, no hyperglycemia : Continue with insulin sliding scale 7. HTN: Controlled with amlodipine 8. COPD: Stable no exacerbation, continue nebs 9. Moderate protein calorie malnutrition: Encouraged by mouth intake 10. Constipation: Stable with current bowel regimen 11. Spiculated lung masses outpatient follow-up needed 12. Hypoxia: Secondary to TRANSACTION MANAGER - resolved 13. Hypokalemia - Resolved with replacement Disposition - PT/OT consult, ARU consult. Transfer to [facility] [place] Current Medications Acetaminophen (Tylenol Tab) 650 mg Q4H PRN PO PAIN OR FEVER; Start 08/23/18 at 13:45 Acetaminophen/ Hydrocodone Bitart ([place], [place]nex[place] 5/325) 1 tab Q4HP PRN PO MILD/MODERATE PAIN (PS 1-7) Last administered on 09/09/18at 05:00; Start 09/08/18 at 23:50 Acetaminophen/ Hydrocodone Bitart ([place], Anexsia 5/325) 1 tab Q6HP PRN PO MILD/MODERATE PAIN (PS 1-7) Last administered on 09/02/18at 20:28; Start 08/28/18 at 15:45; Stop 09/03/18 at 15:49; Status DC Acetaminophen/ Hydrocodone Bitart ([place], [place]nexs[place] 5/325) 2 tab Q4HP PRN PO SEVERE PAIN (PS 8-10) Last administered on 09/03/18at 12:21; Start 08/30/18 at 13:00; Stop 09/03/18 at 15:49; Status DC Acetaminophen/ Hydrocodone Bitart ([place], [place]nexs[place] 5/325) 2 tab Q6HP PRN PO SEVERE PAIN (PS 8-10) Last administered on 08/30/18at 11:48; Start 08/28/18 at 15:45; Stop 08/30/18 at 12:56; Status DC Alteplase, Recombinant 10 mg/ Sodium Chloride 100 ml @ 4 mls/hr Q24H IV Last administered on 09/04/18at 21:19; Start 09/03/18 at 17:00; Stop 09/05/18 at 10:38; Status DC Alteplase, Recombinant 25 mg/ Sodium Chloride 250 ml @ 2.5 mls/hr Q24H IV Last administered on 09/01/18at 17:14; Start 09/01/18 at 17:00; Stop 09/02/18 at 13:41; Status DC Amlodipine Besylate (Norvasc) 5 mg DAILY PO Last administered on 09/08/18at 09:34; Start 08/23/18 at 09:00 Atorvastatin Calcium (Lipitor) 40 mg QHS PO Last administered on 09/08/18at 20:58; Start 08/23/18 at 21:00 Clopidogrel Bisulfate (PLAVix) 75 mg DAILY PO Last administered on 09/03/18at 08:06; Start 08/23/18 at 09:00; Stop 09/03/18 at 15:49; Status DC Dextrose (Dextrose 50%) 25 ml ASDIRECTED PRN IV SEE LABEL COMMENTS; Start 08/23/18 at 13:45 Dextrose (Dextrose 50%) 25 ml ASDIRECTED PRN IV SEE LABEL COMMENTS; Start 08/23/18 at 16:15; Status UNV Diazepam (Valium) 5 mg Q6HP PRN PO MUSCLE SPASMS Last administered on 09/09/18at 05:37; Start 09/07/18 at 21:15; Stop 09/09/18 at 08:25; Status DC Diphenhydramine HCl (Benadryl) 12.5 mg Q4HP PRN IV ITCHING; Start 09/03/18 at 16:00; Stop 09/08/18 at 23:53; Status DC Fentanyl Citrate (Sublimaze) 25 mcg Q5MP PRN IV MODERATE PAIN (PS 4-7); Start 09/07/18 at 21:30; Stop 09/07/18 at 22:29; Status DC Ferrous Sulfate (Ferrous Sulfate) 325 mg BID PO Last administered on 09/08/18at 20:58; Start 08/26/18 at 09:00 Glucagon (Glucagon) 1 mg ASDIRECTED PRN SC SEE LABEL COMMENTS; Start 08/23/18 at 13:45 Glucagon (Glucagon) 1 mg ASDIRECTED PRN SC SEE LABEL COMMENTS; Start 08/23/18 at 16:15; Status UNV Glucose (Glucose) 16 GM ASDIRECTED PRN PO SEE LABEL COMMENTS; Start 08/23/18 at 13:45 Glucose (Glucose) 16 GM ASDIRECTED PRN PO SEE LABEL COMMENTS; Start 08/23/18 at 16:15; Status UNV Heparin Sodium (Heparin (Flush)) 200 units ASDIRECTED PRN IV SEE LABEL COMMENTS Last administered on 08/31/18at 14:35; Start 08/25/18 at 16:00 Heparin Sodium (Heparin (Flush)) 200 units PICC IV Last administered on 09/09/18at 05:03; Start 08/25/18 at 18:00 Heparin Sodium (Heparin Flush Bag) 500 units ASDIRECTED XX ; Start 09/08/18 at 00:30; Status Cancel Heparin Sodium (Porcine) (Heparin) ASDIRECTED PRN IV SEE LABEL COMMENTS Last administered on 08/25/18at 06:13; Start 08/23/18 at 15:30; Stop 09/03/18 at 20:11; Status DC Heparin Sodium (Porcine) 00361 units/IV Miscellaneous Supplies 250 ml @ 8.5 mls/hr Q24H IV Last administered on 08/23/18at 13:11; Start 08/23/18 at 13:01; Stop 08/23/18 at 15:29; Status DC Heparin Sodium (Porcine) 58027 units/IV Miscellaneous Supplies 250 ml @ 0 mls/hr Q0M IV Last administered on 09/01/18at 17:34; Start 08/23/18 at 15:26; Stop 09/03/18 at 20:11; Status DC Heparin Sodium (Porcine) 89462 units/IV Miscellaneous Supplies 250 ml @ 6 mls/hr Q24H IV Last administered on 09/04/18at 21:19; Start 09/03/18 at 20:00; Stop 09/05/18 at 10:38; Status DC Home Med (Med Rec Complete!) ASDIRECTED XX ; Start 08/23/18 at 14:15; Stop 08/23/18 at 14:16; Status DC Hydromorphone HCl (Dilaudid) 0.4 mg Q5MP PRN IV MODERATE/SEVERE PAIN (PS 5-10); Start 09/07/18 at 21:30; Stop 09/07/18 at 22:29; Status DC Insulin Human Lispro (HumaLOG INSULIN) SEE PROTOCOL TABLE AC SC Last administered on 09/08/18at 19:00; Start 08/23/18 at 17:30 Insulin Human Lispro (HumaLOG INSULIN) SEE PROTOCOL TABLE Q6H SC ; Start 08/23/18 at 18:00; Stop 08/23/18 at 18:00; Status DC Insulin Human Lispro (HumaLOG INSULIN) SEE PROTOCOL TABLE QHS SC ; Start 08/23/18 at 21:00 Lactated Ringer's 1,000 ml @ 75 mls/hr [id number] IV ; Start 09/07/18 at 21:30; Stop 09/07/18 at 22:29; Status DC Magnesium Hydroxide (Milk Of Magnesia) 30 ml DAILYPRN PRN PO CONSTIPATION; Start 09/05/18 at 11:00 Miscellaneous (Unresolved Clarification Entry) SEE LABEL COMMENTS DAILY XX ; Start 08/29/18 at 09:00; Stop 08/29/18 at 17:16; Status DC Morphine Sulfate (Morphine Sulfate In 0.9%Nacl Iv Bag) 1 mg ASDIRECTED PRN IV SEE LABEL COMMENTS Last administered on 09/03/18at 19:17; Start 09/03/18 at 16:00; Stop 09/05/18 at 10:38; Status DC Morphine Sulfate (Morphine Sulfate In 0.9%Nacl Iv Bag) 1 mg ASDIRECTED PRN IV SEE LABEL COMMENTS Last administered on 09/05/18at 11:12; Start 09/05/18 at 10:45; Stop 09/06/18 at 11:38; Status DC Morphine Sulfate (Morphine Sulfate In 0.9%Nacl Iv Bag) SEE PROTOCOL ASDIRECTED PRN IV SEE LABEL COMMENTS Last administered on 09/08/18at 00:58; Start 09/06/18 at 11:45; Stop 09/08/18 at 23:53; Status DC Morphine Sulfate (Morphine Sulfate Inj) 4 mg Q1HP PRN IV SEVERE PAIN (PS 8-10) Last administered on 09/03/18at 13:27; Start 09/02/18 at 22:30; Stop 09/03/18 at 15:49; Status DC Morphine Sulfate (Morphine Sulfate Inj) 4 mg Q6HP PRN IV PAIN OR DISCOMFORT Last administered on 09/02/18at 21:29; Start 08/23/18 at 14:15; Stop 09/02/18 at 22:25; Status DC Nalbuphine HCl (Nubain) 2.5 mg Q6HP PRN IV PRURITIS; Start 09/03/18 at 16:00; Stop 09/08/18 at 23:53; Status DC Naloxone HCl (Narcan) 0.1 mg Q5MP PRN IV SEE LABEL COMMENTS; Start 09/03/18 at 16:00; Stop 09/08/18 at 23:53; Status DC Non-Formulary Medication (Epidural/TRANSACTION MANAGER [place]) USE THIS ENTRY TO VEND ... Q1M PRN XX SEE LABEL COMMENTS; Start 09/03/18 at 16:00; Stop 09/08/18 at 23:53; Status DC Non-Formulary Medication (Heparin Iv Rate Change Documentation ml/ Hr) ASDIRECTED XX Last administered on 09/02/18at 12:33; Start 08/31/18 at 06:00; Stop 09/03/18 at 20:11; Status DC Non-Formulary Medication (Heparin Iv Rate Change Documentation ml/ Hr) ASDIRECTED XX Last administered on 08/26/18at 09:15; Start 08/23/18 at 15:30; Stop 08/28/18 at 15:29; Status DC Ondansetron HCl (ZOFRAN INJection) 4 mg Q4HP PRN IV NAUSEA OR VOMITING; Start 09/07/18 at 21:30; Stop 09/07/18 at 22:29; Status DC Ondansetron HCl (ZOFRAN INJection) 4 mg Q4HP PRN IV NAUSEA OR VOMITING Last administered on 09/01/18at 20:06; Start 08/23/18 at 14:15 Ondansetron HCl (ZOFRAN INJection) 4 mg Q6HP PRN IV NAUSEA; Start 09/03/18 at 16:00; Stop 09/08/18 at 23:53; Status DC Oxycodone HCl (Roxicodone, Oxyir) 5 mg ASDIRECTED PRN PO MILD/MODERATE PAIN (PS 1-7); Start 09/07/18 at 21:30; Stop 09/07/18 at 22:29; Status DC Oxycodone/ Acetaminophen (Percocet 5mg/ 325mg Tablet) 1 tab Q4HP PRN PO MILD/MODERATE PAIN (PS 1-7) Last administered on 08/27/18at 20:17; Start 08/24/18 at 16:15; Stop 08/28/18 at 15:39; Status DC Oxycodone/ Acetaminophen (Percocet 5mg/ 325mg Tablet) 1 tab Q6HP PRN PO MILD/MODERATE PAIN (PS 1-7) Last administered on 08/24/18at 11:54; Start 08/23/18 at 16:00; Stop 08/24/18 at 16:11; Status DC Oxycodone/ Acetaminophen (Percocet 5mg/ 325mg Tablet) 2 tab Q6HP PRN PO SEVERE PAIN (PS 8-10) Last administered on 08/28/18at 10:43; Start 08/27/18 at 11:00; Sto p 08/28/18 at 15:39; Status DC Pantoprazole Sodium (Protonix) 40 mg BID PO Last administered on 09/08/18at 20:57; Start 08/23/18 at 09:00 Pantoprazole Sodium (Protonix) 40 mg DAILY PO ; Start 08/24/18 at 09:00; Status UNV Piperacillin Sod/ Tazobactam Sod 3.375 gm/Dextrose 50 ml @ 50 mls/hr Q6H IV Las t administered on 09/09/18 04:59; Start 09/06/18 at 17:00 Potassium Chloride 10 meq/ IV Miscellaneous Supplies 100 ml @ 100 mls/hr Q1H IV Last administered on 09/07/18 13:00; Start 09/07/18 at 12:00; Stop 09/07/18 at 13:59; Status DC Potassium Chloride 10 meq/ IV Miscellaneous Supplies 100 ml @ 100 mls/hr Q1H IV Last administered on 09/08/18at 13:32; Start 09/08/18 at 09:00; Stop 09/08/18 at 12:59; Status DC Potassium Chloride (Micro-K Extencaps) 40 meq DAILY PO Last administered on 09/08/18at 09:34; Start 09/08/18 at 09:00 Senna/Docusate Sodium (Senokot S) 1 tab BIDP PRN PO CONSTIPATION Last administered on 09/05/18at 11:58; Start 09/05/18 at 11:00 Sodium Chloride 1,000 ml @ 15 mls/hr Q24H IV Last administered on 09/08/18at 19:00; Start 09/03/18 at 15:48; Stop 09/08/18 at 23:53; Status DC Sodium Chloride (Saline Lock Flush) 2 ml ASDIRECTED PRN IV SEE LABEL COMMENTS; Start 08/25/18 at 14:30; Status Cancel Sodium Chloride (Saline Lock Flush) 2 ml SLF IV Last administered on 08/26/18at 06:17; Start 08/25/18 at 22:00; Stop 08/26/18 at 22:11; Status DC Sodium Chloride (Saline Lock Flush) 10 ML PICC IV Last administered on 09/09/18at 05:03; Start 08/25/18 at 18:00 Sodium Chloride (Saline Lock Flush) 10ML ASDIRECTED PRN IV SEE LABEL COMMENTS Last administered on 08/31/18at 14:35; Start 08/25/18 at 16:00 Sucralfate (Carafate) 1 gm ACHS PO Last administered on 09/08/18at 20:58; Start 08/24/18 at 17:30 VS,Fishbone, I+O VS, Fishbone, I+O Laboratory Tests 09/09/18 04:58 Red Blood Count 3.36 L, Mean Corpuscular Volume 91.4, Mean Corpuscular Hemoglobin 28.6, Mean Corpuscular Hemoglobin Concent 31.3 L, Red Cell Distribution Width 18.1 H, Calcium Level 6.9 L Vital Signs Date Time Temp Pulse Resp B/P (MAP) Pulse Ox O2 Delivery O2 Flow Rate FiO2 09/09/18 07:26 3.0 09/09/18 05:30 18 09/09/18 04:00 98.0 89 129/68 (88) 96 09/07/18 04:00 50 I&O- Last 24 Hours up to 6 AM 09/09/18 06:00 Intake Total 1740 ml Output Total 675 ml Balance 1065 ml HARISH QUICK DO Sep 09, 2018 08:07
[2018-09-09] MEDS ORDERED: ALBUTEROL SULFATE 2.5 MG/0.5 ML INH NEB SOLN NEB PRN (08:45)
[2018-09-09] MEDS: HumaLOG INSULIN (NovoLOG) PER UNIT SC SCH ×2 (08:46→12:34)
[2018-09-09] MEDS: SUCRALFATE 1 GM TAB PO SCH ×2 (08:46→11:27)
[2018-09-09] MEDS: PANTOPRAZOLE 40MG TAB (PROTONIX) PO SCH (08:46)
[2018-09-09] MEDS: POTASSIUM CHLORIDE 10 MEQ SR TABLET PO SCH (08:46)
[2018-09-09 08:47] VITALS: BP 141/67
[2018-09-09] MEDS: amLODIPine 5 MG TAB PO SCH (08:47)
[2018-09-09] MEDS: FERROUS SULFATE 325MG TAB PO SCH (08:47)
[2018-09-09] MEDS ORDERED: HEPARIN SOD (PORCINE) 5000 UNITS/ML VIAL SQ SCH (09:00)
--- NOTE | 2018-09-09 10:08 | IPNPDOC ---
Date Seen The patient was seen on 09/09/18. Progress Note Vascular Surgery. Dr Martin. 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 Revision of Ax Bifem graft 08/16/[address] Martin. Patient presented in ER 08/23/18 with chief complaints of cold left foot admission was arranged, vascular surgery consulted. Thrombolysis attempted this admission but was not successful, POD2 S/P Lt AKA. Pain controlled, po Percocet. PAST MEDICAL HISTORY: Hypertension. Hyperlipidemia. Type 2 diabetes. COPD. ERCP June 2017 cholangitis/biliary stent. H/O upper and lower GI bleed. EGD on 04/22/2017 that showed multiple (more than 10) small angioectasia of the duodenum treated with argon-beam coagulation. Recent admission for UGIB, EGD 07/10/18 Three non-bleeding angioectasias in the stomach. Treated with argon beam coagulation. A few non-bleeding angioectasias in the duodenum. Treated with argon beam coagulation. Patent biliary stent. chronic anemia history of vascular disease status post bilateral common iliac artery and angioplasty and stenting. H/O DVT of the left lower extremity and was anticoagulated on warfarin until her admission for GI Bleeding March 2017. PAST SURGICAL HISTORY: Tonsillectomy. Bilateral common iliac artery angioplasty stenting. EGDs and colonoscopies. 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 Treated with argon beam coagulation. A few non-bleeding angioectasias in the duodenum. Treated with argon beam coagulation. Patent biliary stent. ERCP as above. Right-sided axillofemoral and [id number] fem/fem bypass undetermined date. PE: GEN: [id number]. No acute distress. Alert and oriented x 3. HEENT: Normocephalic, atraumatic. Moist mucous membranes. CHEST: Regular rate and rhythm, +S1, +S2 LUNGS: Clear to auscultation bilaterally. No wheezes, rales, or rhonchi. ABD: Round, soft, non-tender, non-distended. +Bowel sounds throughout. No rebound or guarding. Previous surgical site with dressing Rt groin area, firm area surrounding , no warmth, fluctuance. EXT: No lower extremity edema appreciated. Lt AKA with dressing intact. SKIN: No rashes. NEURO: Alert and oriented x 3. Cranial nerves III-XII are intact. No focal deficits appreciated. A&P: S/P Rt AKA. POD2. Dr Martin following. Dressing intact, changed last evening. Pain controlled with po Percocet, Will d/c Valium as seems to be causing lethargy. PT/OT/ARU screen chronic anemia. Monitor CBC. Hgb 9.6 Fe supplement BID. DVT px. SQ Heparin. VS, I&O, 24H, Fishbone Vital Signs/I&O Vital Signs Date Time Temp Pulse Resp B/P (MAP) Pulse Ox O2 Delivery O2 Flow Rate FiO2 09/09/18 08:47 90 141/67 09/09/18 07:26 3.0 09/09/18 05:30 18 09/09/18 04:00 98.0 96 09/07/18 04:00 50 I&O- Last 24 Hours up to 6 AM 09/09/18 06:00 Intake Total 1740 ml Output Total 675 ml Balance 1065 ml Laboratory Data 24H LABS Laboratory Tests 2 09/08/18 11:56: Bedside Glucose (Misc Panel) 124H 09/08/18 18:56: Bedside Glucose (Misc Panel) 192H 09/08/18 20:56: Bedside Glucose (Misc Panel) 109 09/09/18 04:58: Nucleated Red Blood Cells % (auto) 0.0, Anion Gap 3L, Glomerular Filtration Rate > 60.0, Blood Urea Nitrogen 7, Creatinine 0.42L, Sodium Level 142, Potassium Level 3.9#, Chloride Level 110H, Carbon Dioxide Level 29, Calcium Level 6.9L CBC/BMP Laboratory Tests 09/09/18 04:58 Red Blood Count 3.36 L, Mean Corpuscular Volume 91.4, Mean Corpuscular Hemoglobin 28.6, Mean Corpuscular Hemoglobin Concent 31.3 L, Red Cell Distribution Width 18.1 H, Calcium Level 6.9 L Sunshine Allison Sep 09, 2018 10:08
[2018-09-09] MEDS ORDERED: SUCR1TA PO (15:13)
[2018-09-09] MEDS ORDERED: HEPA100SYR IV (15:13)
[2018-09-09] MEDS ORDERED: KLOR10TA76 PO (15:13)
[2018-09-09] MEDS ORDERED: ZOSY3INJ2 IV (15:13)
[2018-09-09] MEDS ORDERED: HYDR-4571 PO (15:13)
[2018-09-09] MEDS ORDERED: HEPA500011 SQ (15:13)
--- NOTE | 2018-09-09 16:07 | DS.PDOC ---
Discharge Summary General Date of Admission Aug 23, 2018 at 13:34 Date of Discharge 09/09/18 Primary Care Physician: Shagufta Coleman Attending Physician: HARISH QUICK DO Specialist/Consultants Involve: Umang Martin MD Specialist/Consultants Involve Dr Salazar Discharge Summary PROCEDURES PERFORMED DURING STAY: 08/25/18 PICC LINE Insertion 09/03/18 Transfused 2 units pRBC 09/05/18 Transfused 2 units pRBC 09/07/18 left AKA ADMITTING DIAGNOSES: (1) Vascular insufficiency of limb (2) HTN (hypertension) (3) Type 2 diabetes mellitus (4) COPD (chronic obstructive pulmonary disease) (5) Tobacco abuse (6) Anemia (7) Dyslipidemia DISCHARGE DIAGNOSES: 1. Peripheral arterial disease S/P left AKA (09/07/18) after failed revascularization 2 Acute on Chronic anemia: acute anemia is due to blood loss from GI Bleed from plavix, post op blood loss from groin/angiogram; Chronic anemia is secondary to chronic disease (DM, COPD, HTN and chronic GI bleed); 3. History of GI bleed: 4. Tobacco abuse/dependence 5. Dyslipidemia: 6. Diabetes -without alf insulin, no hypoglycemia, no hyperglycemia : 7. HTN: 8. COPD: no exacerbation 9. Possible bacterial HCAP 10. Moderate protein calorie malnutrition: 11. Constipation: Stable with current bowel regimen 12. Hypoxia: Secondary to morphine WAREHOUSE PACKER - resolved 13. Hypokalemia - Resolved with replacement 14. Spiculated lung masses outpatient follow-up needed COMPLICATIONS/CHIEF COMPLAINT: Vascular Insufficiency Of Limb. HISTORY OF PRESENT ILLNESS: 78 years old white female with past medical history of left lobectomy, ischemia, occlusion of femoral to femoral bypass graft from right to left, status post revision right ax bifemoral bypass, hypertension, hyperlipidemia, type 2 diabetes mellitus, COPD, history of upper and lower GI bleed, history of chronic anemia, history of DVT left lower extremity was recently discharged on 08/21/2018 revision of her right bifemoral bypass. Patient presented in ER with chief complaints of cold left foot. Prior to current hospitalization, patient had longstanding distal aortic B ALFONSO occlusion and failed L ax-fem bypass but h/o patent R ax-fem bypass and R to L femfem bypass, but the fem-fem bypass had occluded despite multiple revisions. See H&P for details of current admission. HOSPITAL COURSE: Patient admitted and had progression of her vascular insufficiency to left leg . She failed revascularization attempts with TPA and plavix. She had bleeding at groin site from TPA and plavix that required transfusion. She was taken off plavix because of chronic GI bleed and when offered the choice of plavix with frequent scopes or off plavix with risk of occlusion, she chose to stay off plavix. (prior to admission, in June, patient had endoscopy showing angiectasia). Patient had left leg AKA performed on 09/07 . While on morphine WAREHOUSE PACKER, she had episode of hypoxia and silent aspiration (confirmed with CTA chest as below). WAREHOUSE PACKER stopped. Pain controlled with oral meds post operatively. She was started on zosyn for HCAP RLL infiltrate (presumed bacterial) and ST consulted with no signs of aspiration. There was no exacerbation of her COPD and her DM/HTN remained well controlled. She continued to improve and is being transferred to ARU for further rehab. DISCHARGE MEDICATIONS: Please see below. ALLERGIES: Please see below. PHYSICAL EXAMINATION ON DISCHARGE: VITAL SIGNS: Please see below. General: pleasant NAD, AAOx3 HRRR LCTA Ext: left AKA- dressed; right ankle trace edema LABORATORY DATA: Please see below. IMAGIN09/07/18 CT Chest with RLL infiltrate 08/28/18 CTA Abd/Pel and leg run off: There is again noted to be occlusion of the infrarenal abdominal aorta. Patent right axillofemoral bypass graft. Occlusion of femoral to femoral bypass graft. Metallic domo overlie the right lower quadrant, overlying a portion of the occluded graft. There is some air and fluid surrounding the occluded graft. I cannot exclude a developing abscess and clinical correlation and followup is recommended. Patent flow is seen through the right lower extremity as discussed above. Collateral flow is seen via multiple tiny collateral vessels in the left thigh reconstituting portions of the trifurcation arteries in the left calf. PROGNOSIS: GOOD ACTIVITY: As tolerated DIET: low salt DISCHARGE PLAN: Discharge to ARU for rehab DISPOSITION: 62 D/T Rehab Facility. DISCHARGE INSTRUCTIONS: Follow up [address] Martin Wound care/dressing changes per surgery Continue with nebulizer and antibiotics (may change from zosyn to oral augmentin) for 10-14 days for underlying RLL infiltrate/HCAP Incentive Spirometry and PEP until infiltrate resolved. Avoid IV narcotics/morphine due to hypoxia episode DO NOT PLACE ON PLAVIX due to high risk bleeding Okay to continue with Hep for DVT prophylaxis ITEMS TO FOLLOWUP ON ON OUTPATIENT: . Spiculated lung masses outpatient follow-up needed DISCHARGE CONDITION: stable. TIME SPENT ON DISCHARGE: 45 minutes. Vital Signs/I&Os Vital Signs Date Time Temp Pulse Resp B/P (MAP) Pulse Ox O2 Delivery O2 Flow Rate FiO2 09/09/18 12:34 20 09/09/18 08:47 90 141/67 09/09/18 07:26 3.0 09/09/18 04:00 98.0 96 09/07/18 04:00 50 I&O- Last 24 Hours up to 6 AM 09/09/18 06:00 Intake Total 1740 ml Output Total 675 ml Balance 1065 ml Laboratory Data Labs 24H Laboratory Tests 2 09/08/18 18:56: Bedside Glucose (Misc Panel) 192H 09/08/18 20:56: Bedside Glucose (Misc Panel) 109 09/09/18 04:58: Nucleated Red Blood Cells % (auto) 0.0, Anion Gap 3L, Glomerular Filtration Rate > 60.0, Blood Urea Nitrogen 7, Creatinine 0.42L, Sodium Level 142, Potassium Level 3.9#, Chloride Level 110H, Carbon Dioxide Level 29, Calcium Level 6.9L 09/09/18 11:33: Bedside Glucose (Misc Panel) 165H CBC/BMP Laboratory Tests 09/09/18 04:58 Red Blood Count 3.36 L, Mean Corpuscular Volume 91.4, Mean Corpuscular Hemoglobin 28.6, Mean Corpuscular Hemoglobin Concent 31.3 L, Red Cell Distribution Width 18.1 H, Calcium Level 6.9 L FSBS Laboratory Tests Test 09/08/18 18:56 09/08/18 20:56 09/09/18 11:33 Range/Units Bedside Glucose (Misc Panel) 192 109 165 83-110 MG/DL Discharge Medications Scheduled Amlodipine Besylate (Amlodipine Besylate) 5 Mg Tablet, 5 MG PO DAILY, (Reported) TAKES AT NOON Atorvastatin Calcium (Atorvastatin Calcium) 40 Mg Tab, 40 MG PO QHS, (Reported) Ferrous Sulfate (Ferrous Sulfate) 325 Mg Tablet, 325 MG PO BID, (Reported) Glimepiride (Glimepiride) 2 Mg Tablet, 2 MG PO QHS, (Reported) Heparin Sodium (Porcine) (Heparin 300 Unit/3 ml (100/ml)) 300 Unit/3 Ml Syringe, 200 UNITS IV PICC Heparin Sodium,Porcine (Heparin Sodium) 5,000 Unit/1 Ml Vial, 5,000 UNITS SQ Q12H Metformin HCl (Metformin HCl ER) 500 Mg Tab.er.24h, 1,000 MG PO BID, (Reported) Pantoprazole Sodium (Protonix) 40 Mg Tab, 40 MG PO BID, (Reported) Piperacillin Sodium/Tazobactam (Zosyn 3.375 Gram Vial) 3.375 Gm Vial, 3.375 INJ IV Q6H Potassium Chloride (Klor-Con M10) 10 Meq Tab.er.prt, 20 MEQ PO DAILY Sucralfate (Sucralfate) 1 Gm Tablet, 1 GM PO ACHS Tiotropium [place] (Spiriva) 18 Mcg Cap, 1 CAP INH DAILY, (Reported) Scheduled PRN Hydrocodone/Acetaminophen (Hydrocodone-Acetamin 5-325 mg) 1 Each Tablet, 1 TAB PO Q4HP PRN for MILD/MODERATE PAIN (PS 1-7) Allergies Coded Allergies: No Known Allergies (Verified , 02/24/06) HARISH QUICK DO Sep 09, 2018 16:07
--- NOTE | 2018-09-09 17:55 | IPNPDOC ---
Date Seen The patient was seen on 09/09/18. Progress Note Patient seen and examined last night and today. She is now POD # 2 from [facility]. Her incision is clean, dry, intact with scant serosanguinous drainage. Cleaned gently, and dressed with xeroform, gauze, kerlex-- No lenora wrap due to minimal vascular perfusion and high risk for nonhealing due to ischemia. Thus far, the stump appears viable and no erythema, induration, ischemic changes are present. Recommend local wound care and dry dressing daily- not too tight to avoid compression that could further restrict perfusion and healing. Recommend high protein diet and good glucose control to help with wound healing. All other management per Dr Martin and the hospitalist team. VS, I&O, 24H, Fishbone Vital Signs/I&O Vital Signs Date Time Temp Pulse Resp B/P (MAP) Pulse Ox O2 Delivery O2 Flow Rate FiO2 09/09/18 12:34 20 09/09/18 08:47 90 141/67 09/09/18 07:26 3.0 09/09/18 04:00 98.0 96 09/07/18 04:00 50 I&O- Last 24 Hours up to 6 AM 09/09/18 06:00 Intake Total 1740 ml Output Total 675 ml Balance 1065 ml Laboratory Data 24H LABS Laboratory Tests 2 09/08/18 18:56: Bedside Glucose (Misc Panel) 192H 09/08/18 20:56: Bedside Glucose (Misc Panel) 109 09/09/18 04:58: Nucleated Red Blood Cells % (auto) 0.0, Anion Gap 3L, Glomerular Filtration Rate > 60.0, Blood Urea Nitrogen 7, Creatinine 0.42L, Sodium Level 142, Potassium Level 3.9#, Chloride Level 110H, Carbon Dioxide Level 29, Calcium Level 6.9L 09/09/18 11:33: Bedside Glucose (Misc Panel) 165H CBC/BMP Laboratory Tests 09/09/18 04:58 Red Blood Count 3.36 L, Mean Corpuscular Volume 91.4, Mean Corpuscular Hemoglobin 28.6, Mean Corpuscular Hemoglobin Concent 31.3 L, Red Cell Distribution Width 18.1 H, Calcium Level 6.9 L JOSE J LOVING MD Sep 09, 2018 17:55
--- NOTE | 2018-09-30 14:38 | REPIR ---
DATE OF PROCEDURE: 09/03/2018 ATTENDING SURGEON: Dr. Nohemi Martin INVESTIGATIVE AGENT: Suri Sharma and Caty Orellana PREOPERATIVE DIAGNOSIS: Arterial lysis followup. POSTOPERATIVE DIAGNOSIS: Arterial lysis followup. PROCEDURE: Left lower extremity angiogram. Infusion catheter exchange. PROCEDURE: The patient was taken to the angiography suite, placed supine on the angiography table and then prepped and draped in the standard surgical fashion. The Bentson wire was advanced through the infusion catheter which was removed and an angiogram was performed. This showed continued thrombus in the distal left superficial femoral and popliteal arteries. A new infusion catheter was replaced and thrombolysis was reinitiated. Dressings were applied. The patient tolerated procedure well. All instrument, sponge, and needle counts were correct at the end the case. There were no complications. Dr. Martin was present for and directed the entire case. The patient was transferred to the holding area and back to the ICU for continued left lower extremity thrombolysis.
--- NOTE | 2018-09-30 14:39 | REPIR ---
DATE OF PROCEDURE: 09/04/2018 ATTENDING SURGEON: Dr. Debbi Martin FINAL TESTER: PREOPERATIVE DIAGNOSIS: Left lower extremity ischemia. POSTOPERATIVE DIAGNOSIS: Left lower extremity ischemia. PROCEDURE: Left lower extremity arterial thrombolysis followup. DESCRIPTION OF PROCEDURE: The patient was taken to the angiography suite, placed supine on the angiography table, and then prepped and draped in a standard surgical fashion. The infusion catheter was removed and an angiogram was performed showing continued thrombosis of the tibial vessels distal to the popliteal artery with no flow noted, which has not been present for the last 4 days. At this point, the patient has necrosis of the toes and skin of the foot and will not undergo any further thrombolysis secondary to bleeding and will require a left above-knee amputation. Sheath was removed and Mynx closure was used close the arteriotomy. Dressings were applied. The patient tolerated the procedure well. All instrument, sponge, and needle counts were correct at the end of the case. There were no complications. Dr. Martin was present for and directed the entire case. The patient was transferred to the intensive care unit (ICU) in stable condition.
--- NOTE | 2018-10-01 09:33 | RO ---
DATE OF PROCEDURE: 09/01/2018 ATTENDING SURGEON: Dr. Debbi Martin ASSISTANTS: Caty Orellana and Cynthia Siddiqui PREOPERATIVE DIAGNOSES: Left lower extremity rest pain, thrombosed [id number] femoral-femoral limb of the axillobifemoral bypass graft. POSTOPERATIVE DIAGNOSES: Left lower extremity rest pain, thrombosed [id number] femoral-femoral limb of the axillobifemoral bypass graft. PROCEDURES: Right axillobifemoral bypass graft cannulation, placement of a 50 cm infusion catheter with initiation of arterial thrombolysis. INDICATION: The patient is a 78-year-old female with occluded femoral-femoral limb and ischemia of the left lower extremity. The patient will undergo an angiogram with possible thrombolysis. ANESTHESIA: Local with 10 mL of 2% lidocaine mixed with 0.5% Marcaine. COMPLICATIONS: None. DRAINS: None. SPECIMENS: None. IMPLANTS: None. FLUORO TIME: 0.1 minutes. CONTRAST: None. DESCRIPTION OF PROCEDURE: The patient was taken to the angiography suite, placed supine on the angiography room table and then prepped and draped in a standard surgical fashion. The axillo portion of the bypass graft was cannulated and a wire advanced through the cross femoral portion, and a 50 cm infusion catheter was then placed through the thrombosed limb and into the left superficial femoral artery, and thrombolysis was initiated. Dressings were applied. The patient tolerated the procedure well. All instrument, sponge, and needle counts were correct at the end of the case. There were no complications. Dr. Martin was present for and directed the entire case. The patient was transferred to the intensive care unit (ICU) for arterial thrombolysis.
== END 2018-09-09 15:20 | DRG 240 ==
LOC: EDBD 10:41 → M ED 10:41 → M ED INP 13:34 → M ICU 14:37 → M PCU 08-27 20:05 → M ICU 08-28 17:43 → M PCU 08-28 17:44 → M ICU 09-01 16:56
PROVIDERS: ADMIT Internal Medicine; ATTEND Family Medicine
PROC: 02HV33Z Insertion of Infusion Device into Superior Vena Cava, Percutaneous Approach (ICD-10-PCS; 2018-08-25)
PROC: 3E05317 Introduction of Other Thrombolytic into Peripheral Artery, Percutaneous Approach (ICD-10-PCS; 2018-09-01)
PROC: 30233N1 Transfusion of Nonautologous Red Blood Cells into Peripheral Vein, Percutaneous Approach (ICD-10-PCS; 2018-09-03)
PROC: 0Y6D0Z2 Detachment at Left Upper Leg, Mid, Open Approach (ICD-10-PCS; principal; 2018-09-07 16:00)
DX: T82.868A Thrombosis due to vascular prosthetic devices, implants and grafts, initial encounter (principal); E44.0 Moderate protein-calorie malnutrition; D62 Acute posthemorrhagic anemia; J44.9 Chronic obstructive pulmonary disease, unspecified; E11.51 Type 2 diabetes mellitus with diabetic peripheral angiopathy without gangrene; E87.6 Hypokalemia; R09.02 Hypoxemia; I10 Essential (primary) hypertension; D63.8 Anemia in other chronic diseases classified elsewhere; R91.8 Other nonspecific abnormal finding of lung field; F17.200 Nicotine dependence, unspecified, uncomplicated; D64.9 Anemia, unspecified; E78.5 Hyperlipidemia, unspecified; K59.00 Constipation, unspecified; Z79.899 Other long term (current) drug therapy; Y83.1 Surgical operation with implant of artificial internal device as the cause of abnormal reaction of the patient, or of later complication, without mention of misadventure at the time of the procedure

== ENCOUNTER 2018-09-09 13:53 | Inpatient (IN) | payer MEDICARE ==
[~2018-09-09] VITALS: Ht 170.2 cm; Wt 44.6 kg
[2018-09-09] MEDS ORDERED: KLOR10TA76 PO (15:13)
[2018-09-09] MEDS ORDERED: HEPA100SYR IV (15:13)
[2018-09-09] MEDS ORDERED: SUCR1TA PO (15:13)
[2018-09-09] MEDS ORDERED: ZOSY3INJ2 IV (15:13)
[2018-09-09] MEDS ORDERED: HYDR-4571 PO (15:13)
[2018-09-09] MEDS ORDERED: HEPA500011 SQ (15:13)
[2018-09-09 15:20] VITALS: BP 119/58
[2018-09-09] MEDS ORDERED: BISACODYL 10 MG SUPP PR PRN (16:45)
[2018-09-09] MEDS ORDERED: DEXTROSE 50% 50 ML SYRINGE IV PRN (16:45)
[2018-09-09] MEDS ORDERED: GLUCOSE 4 GM CHEW TABLET PO PRN (16:45)
[2018-09-09] MEDS ORDERED: GLUCAGON FOR INJ 1 MG VIAL (J1610) SC PRN (16:45)
[2018-09-09] MEDS ORDERED: ONDANSETRON 4 MG TAB (S0181) PO PRN (16:45)
[2018-09-09] MEDS ORDERED: MOM 30ML SUSPENSION UDC PO PRN (16:45)
[2018-09-09] MEDS: SUCRALFATE 1 GM TAB PO SCH ×2 (17:22→20:49)
[2018-09-09] MEDS: PIPERACILLIN/TAZOBACTAM SOD 3.375 GM in D5W MINI-BAG PLUS 50 ML IV SCH ×2 (17:23→23:25)
[2018-09-09] MEDS: HumaLOG INSULIN (NovoLOG) PER UNIT SC SCH ×2 (17:30→21:00)
[2018-09-09] MEDS: SODIUM CHLORIDE 0.9% INJ 10 ML SYR IV PRN ×2 (18:40→20:50)
[2018-09-09] MEDS: oxyCODONE 5MG TAB PO PRN ×2 (18:40→23:54)
[2018-09-09] MEDS ORDERED: FUROSEMIDE 40 MG/4 ML VIAL (J1940) IV ONE (19:15)
[2018-09-09] MEDS ORDERED: LACTULOSE 20 GM/30 ML SYRUP UD PO ONE (19:15)
[2018-09-09] MEDS ORDERED: BISACODYL 10 MG SUPP PR ONE (19:15)
[2018-09-09 20:00] VITALS: BP 130/62
[2018-09-09] MEDS: SENNA 8.6 MG TAB (SENOKOT) PO SCH (20:48)
[2018-09-09] MEDS: ATORVASTATIN 20 MG TAB PO SCH (20:48)
[2018-09-09] MEDS: guaiFENesin 200 MG TAB PO SCH (20:48)
[2018-09-09] MEDS: ACETAMINOPHEN 500 MG TAB PO SCH (20:49)
[2018-09-09] MEDS: DOCUSATE SODIUM 100 MG CAP PO SCH (20:49)
[2018-09-09] MEDS: FERROUS GLUCONATE 324 MG TAB PO SCH (20:49)
[2018-09-09] MEDS: GLIMEPIRIDE 2 MG TAB PO SCH (20:49)
[2018-09-09] MEDS: HEPARIN SOD (PORCINE) 5000 UNITS/ML VIAL SC SCH (20:51)
[2018-09-09] MEDS: BOUDREAUX'S BUTT PASTE TOP SCH (20:52)
[2018-09-09] MEDS ORDERED: metFORMIN XR 500MG TAB *GLUCOPHAGE XR PO SCH (21:00)
[2018-09-09] MEDS ORDERED: oxyCODONE 5MG TAB PO ONE (23:15)
[2018-09-10] MEDS: SODIUM CHLORIDE 0.9% INJ 10 ML SYR IV PRN (00:37)
[2018-09-10] MEDS: PIPERACILLIN/TAZOBACTAM SOD 3.375 GM in D5W MINI-BAG PLUS 50 ML IV SCH ×2 (05:10→10:27)
[2018-09-10 05:38] VITALS: BP 129/60
[2018-09-10 05:40] LABS: BASO % 0.3 % (0.0-1.0); EOS # 0.1 10^3/uL (0.0-0.50); EOS % 0.8 % (0.0-3.0); HEMATOCRIT 29.8 % (36.0-47.0); HEMOGLOBIN 9.3 g/dl (12.0-15.5); LYMPH # 0.8 10^3/uL (1.5-4.5); LYMPH % 7.2 % (24.0-44.0); MEAN CORPUSCULAR HEMOGLOBIN 27.1 pg (27.0-33.0); MEAN CORPUSCULAR HGB CONC 31.2 g/dl (32.0-36.5); MEAN CORPUSCULAR VOLUME 86.9 fl (80.0-96.0); MONO # 0.8 10^3/uL (0.0-0.8); NEUTROPHILS # 8.7 10^3/uL (1.8-7.7); NEUTROPHILS % 83.1 % (36.0-66.0); PLATELET COUNT, AUTOMATED 377 10^3/uL (150-450); RED BLOOD COUNT 3.43 10^6/uL (4.00-5.40); WHITE BLOOD COUNT 10.4 10^3/uL (4.0-10.0)
[2018-09-10 05:51] LABS: ALBUMIN 1.4 GM/DL (3.2-5.2); ALT/SGPT 14 U/L (12-78); BILIRUBIN,TOTAL 0.3 MG/DL (0.2-1.0); BLOOD UREA NITROGEN 6 MG/DL (7-18); CARBON DIOXIDE LEVEL 30 MEQ/L (21-32); CHLORIDE LEVEL 106 MEQ/L (98-107); CREATININE FOR GFR 0.41 MG/DL (0.55-1.30); GLOMERULAR FILTRATION RATE > 60.0 (>39); GLUCOSE, FASTING 74 MG/DL (70-100); POTASSIUM SERUM 3.7 MEQ/L (3.5-5.1); SODIUM LEVEL 143 MEQ/L (136-145); TOTAL PROTEIN 4.7 GM/DL (6.4-8.2)
[2018-09-10] MEDS ORDERED: SODIUM CHLORIDE 0.9% INJ 10 ML SYR IV SCH (06:00)
[2018-09-10] MEDS: oxyCODONE 5MG TAB PO PRN ×4 (06:27→21:05)
[2018-09-10] MEDS: HumaLOG INSULIN (NovoLOG) PER UNIT SC SCH ×4 (07:25→21:00)
[2018-09-10] MEDS: IPRATROPIUM 0.5MG/ALBUTEROL 2.5MG INH SOL UD 3ML (DUONEB)(J7620) NEB SCH ×3 (07:25→19:57)
[2018-09-10] MEDS: TIOTROPIUM INHALER/CAPSULE (SPIRIVA) INH SCH (07:25)
[2018-09-10] MEDS: guaiFENesin 200 MG TAB PO SCH ×3 (08:59→21:03)
[2018-09-10] MEDS: BOUDREAUX'S BUTT PASTE TOP SCH ×3 (08:59→21:00)
[2018-09-10 09:00] VITALS: BP 124/58
[2018-09-10] MEDS ORDERED: FUROSEMIDE 40 MG TAB PO SCH (09:00)
[2018-09-10] MEDS ORDERED: amLODIPine 5 MG TAB PO SCH (09:00)
[2018-09-10] MEDS: POTASSIUM CHLORIDE 10 MEQ SR TABLET PO SCH (09:00)
[2018-09-10] MEDS: ACETAMINOPHEN 500 MG TAB PO SCH ×3 (09:00→21:03)
[2018-09-10] MEDS: PANTOPRAZOLE 40MG TAB (PROTONIX) PO SCH (09:01)
[2018-09-10] MEDS: SUCRALFATE 1 GM TAB PO SCH ×4 (09:01→21:03)
[2018-09-10] MEDS: FERROUS GLUCONATE 324 MG TAB PO SCH ×2 (09:01→21:04)
[2018-09-10] MEDS: HEPARIN SOD (PORCINE) 5000 UNITS/ML VIAL SC SCH ×2 (09:13→21:02)
--- NOTE | 2018-09-10 09:13 | IPNPDOC ---
Date Seen The patient was seen on 09/10/18. Progress Note Ms. Hale is a 78-year-old patient of Dr. Martin's, and she is now postop day #3 status post left above-knee amputation. Dr. Martin is managing her other vascular issues, but I did the amputation and am following her incision at this time. The patient has extremely limited blood flow to the stump, through collateral circulation only, and it is very important that we not compress the stump with a n Brannon wrap or other compressive dressings. When I arrived to rehabilitation this morning, the patient had 2 Brannon wraps very tightly wound around her stump, and I discussed with the nurse that we need to avoid this to prevent ischemia of the stump. It is unclear if she has enough flow to heal the stump as is, although at this point it seems to be doing okay and we are very pleased with this. The inc ision was cleaned and dried. The nurse provided me with a border dressing to go over the incision on the stump, and this may be the best option for management of her incision to prevent any compression. She has a scant amount of serous drainage, no bleeding is noted, in the border dressing should be suitable. Elevation of the stump will help with swelling, and can be done when she is at rest in bed. The domo will remain in for 2-3 weeks depending on healing, and the sutures will remain in for 3-4 weeks depending on healing. So far we seem to be stable, but wound healing is tenuous in a patient with such low blood flow and poor nutrition. Further recommendations to follow as appropriate. VS, I&O, 24H, Fishbone Vital Signs/I&O Vital Signs Date Time Temp Pulse Resp B/P (MAP) Pulse Ox O2 Delivery O2 Flow Rate FiO2 09/10/18 06:58 18 09/10/18 05:38 97.6 93 129/60 (83) 96 3.0 I&O- Last 24 Hours up to 6 AM 09/10/18 06:00 Intake Total 360 ml Balance 360 ml Laboratory Data 24H LABS Laboratory Tests 2 09/09/18 17:01: Bedside Glucose (Misc Panel) 103 09/09/18 20:36: Bedside Glucose (Misc Panel) 243H 09/10/18 05:07: Immature Granulocyte % (Auto) 0.6, White Blood Count 10.4H, Red Blood Count 3.43L, Hemoglobin 9.3L, Hematocrit 29.8L, Mean Corpuscular Volume 86.9, Mean Corpuscular Hemoglobin 27.1, Mean Corpuscular Hemoglobin Concent 31.2L, Red Cell Distribution Width 18.1H, Platelet Count 377, Neutrophils (%) (Auto) 83.1H, Lymphocytes (%) (Auto) 7.2L, Monocytes (%) (Auto) 8.0H, Eosinophils (%) (Auto) 0.8, Basophils (%) (Auto) 0.3, Neutrophils # (Auto) 8.7H, Lymphocytes # (Auto) 0 .8L, Monocytes # (Auto) 0.8, Eosinophils # (Auto) 0.1, Basophils # (Auto) 0.0, Nucleated Red Blood Cells % (auto) 0.0 09/10/18 05:08: Anion Gap 7L, Glomerular Filtration Rate > 60.0, Blood Urea Nitrogen 6L, Creatinine 0.41L, Sodium Level 143, Potassium Level 3.7, Chloride Level 106, Carbon Dioxide Level 30, Calcium Level 7.0L, Aspartate Amino Transf (AST/SGOT) 29, Alanine Aminotransferase (ALT/SGPT) 14, Alkaline Phosphatase 146H, Total Bilirubin 0.3, Total Protein 4.7L, Albumin 1.4L, Albumin/Globulin Ratio 0.42L CBC/BMP Laboratory Tests 09/10/18 05:07 Red Blood Count 3.43 L, Mean Corpuscular Volume 86.9, Mean Corpuscular Hemoglobin 27.1, Mean Corpuscular Hemoglobin Concent 31.2 L, Red Cell Distribution Width 18.1 H, Neutrophils (%) (Auto) 83.1 H, Lymphocytes (%) (Auto) 7.2 L, Monocytes (%) (Auto) 8.0 H, Eosinophils (%) (Auto) 0.8, Basophils (%) (Auto) 0.3, Neutrophils # (Auto) 8.7 H, Lymphocytes # (Auto) 0.8 L, Monocytes # (Auto) 0.8, Eosinophils # (Auto) 0.1, Basophils # (Auto) 0.0 09/10/18 05:08 Calcium Level 7.0 L, Aspartate Amino Transf (AST/SGOT) 29, Alanine Aminotransferase (ALT/SGPT) 14, Alkaline Phosphatase 146 H, Total Bilirubin 0.3, Total Protein 4.7 L, Albumin 1.4 L JOSE J LOVING MD Sep 10, 2018 09:13
[2018-09-10] MEDS: DOCUSATE SODIUM 100 MG CAP PO SCH ×2 (09:14→21:03)
--- NOTE | 2018-09-10 10:28 | HPEPDOC ---
Emergency Services Director Note DATE OF ADMISSION: Sep 09, 2018 at 15:20 SOURCE OF ADMISSION INFORMATION: [facility] records, patient, and family CHIEF COMPLAINT:left AKA HISTORY OF PRESENT ILLNESS: 78F pmh HTN, HLD, DM2, COPD, GI bleed, smoker, DVT, underwent recent [id number] femoral bypass revision in July 2018, with persistent PVD of her left lower extremity and admitted to [facility] on 08/23/18 with painful limb. She was observed for a period of time and had a left axillo-femoral bypass on 08/28/18, however her symptoms worsened despite surgical intervention and use of a heparin drip. CT angio on 09/01/18 showed, occlusion of the infrarenal abdominal aortaright axillofemoral bypass graft. Occlusion of femoral to femoral bypass graft Collateral flow is seen via multiple tiny collateral vessels in the left thigh reconstituting portions of the trifurcation arteries in the left calf. She had drops in her hgb/Hct while on Plavix requiring multiple blood transfusions and ultimately the patient chose to be taken off of Plavix having been offered the choice of no Plavix versus continue Plavix and check serial endoscopies. Patient had an episode of hypoxia and there was concern for aspiration for which CT chest on 09/06/18 showed, Spiculated mass is seen in both the right upper lobe and left upper lobe. Diffuse peribronchial thickening in the right lower lobe with mild interstitial infiltrate in that region. She was continued on empiric antibiotics and ultimately underwent an AKA on 09/07/[address] Bautista without complications. She had episodes of lethargy thought to be from the use of Valium which was discontinued. She was seen by therapy and was well below her prior level of function requiring assistance in mobility and ADLs and deemed medically appropriate for discharge to ARU on 09/09/18. REVIEW OF SYSTEMS: The following is a completed review of systems and has been reviewed. Review of systems otherwise unremarkable. PAIN: Patient self reports left limb pain EYES: no recent vision changes EARS, NOSE, & THROAT: denies dysphagia, rhinorrhea, or recent hearing loss CARDIOVASCULAR: denies chest pain/palpitations PULMONARY: + dyspnea on exertion, +productive cough GASTROINTESTINAL:denies diarrhea, +constipation GENITOURINARY: denies dysuria, +incontinence MUSCULOSKELETAL: left AKA NEUROLOGICAL: no tremor or seizure activity HEMATOLOGICAL: +anemia SKIN: left AKA incision PSYCHIATRIC: Unremarkable All other review of systems found to be negative. PAST MEDICAL HISTORY: as per HPI PAST SURGICAL HISTORY: Tonsillectomy, bilateral common iliac artery angioplasty, stenting, EGD, colonoscopies, ERCP, biliary stent placement, right-sided axillofemoral and [id number] femorofemoral bypass ALLERGIES: Please see below. MEDICATIONS: Please see below. SOCIAL HISTORY: daily smoker, no ETOH or illicit drugs DIET:consistent carbs PHYSICAL EXAMINATION: VITAL SIGNS: Please see below. GENERAL: Pleasant and cooperative. No acute distress. HEENT: PERRL. Extraocular movements intact. Clear conjunctiva CARDIOVASCULAR: Regular rate and rhythm. No murmurs, rubs, or gallops LUNGS: +basilar crackles, No wheezes. scattered rhonchi ABDOMEN: Soft, nontender, nondistended. Positive bowel sounds. Normal active shagufta wel sounds NEUROLOGICAL: Alert and oriented times three. Cranial nerves II through XII grossly intact. Sensation grossly intact EXTREMITIES: 5-\5 strength bilateral upper extremities. 5\5 strength right lower extremity. >3/5 left hip flexors and abduction +RLE edema SKIN: left residual limb incision without induration, mildly erythematous -sacrum mild erythema, no pressure ulcers IMAGING: Imaging documentation personally reviewed by record FUNCTIONAL STATUS: Premorbid: Mod Independent with all activities of daily life as well as mobility with RW household distances On Admission: Mod-Max assist for bed mobility and functional transfers, total assist for toileting and dressing GOALS: Mod-I from wheelchair level with use of stand pivot transfers for functional transfers, strengthen right LE, stretch and strengthen left residual limb, Mod-I for dressing and toileting at wheelchair level, supervision for bathing, caregiver training, home eval, assess for DMEs, medical optimization ASSESSMENT:78-year-old F with past medical history of PVD who presents status post left AKA PLAN: 1. Rehab: PT, OT, stretch left limb to prevent hip flexor or abduction contractures, teach limb care, strengthen RLE, improve trunk control, upper body strengthening, and shoulder protection techniques for wheelchair propulsion 2. Neuro: avoid deliriogenic medications given recent episosed of altered mental status 3. 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 Vasc: pmh PVD s/p Left AKA- will consult vascular, currently off Plavix given hx of GI bleed, c/u ZOsyn 5. Resp: chronic smoker with COPD, currently on 02, will attempt to wean, will start Duonebs and guaifenesin for productive cough- on Zosyn 6. Endo: pmh DM, c/u oral home meds will add ISS and monitor 7. GI: pmh upper and lower GI bleed, c/u protonix and sucralfate -will order lactulose and suppository for constipation tonight 8. DVT ppx: Teds to RLE and heparin 9. : monitor PVRs, will consider temporary Day given incontinence and to keep limb clean and dry 10. Skin: BI dressing changes to RLE limb, Zinc oxide to sacrum BID 11. Dispo: TBD 12. Pain: Tylenol standing and oxycodone prn 12. DNR POST ADMISSION PHYSICIAN EVALUATION: Medical and functional status: Description of medical status, medical assessment: As above. Rehabilitation diagnosis and current and prior cold morbid medical conditions as above. Risk of complications and plans to mitigate them as above. Description of functional status current status is as above. Prior status as above. Status compared to preadmission: There are no clinically significant differences between the patient's current status and the information described on the preadmission screening document. Treatment plan anticipated: Treatment plan is as described above. Required disciplines including physical therapy, occupational therapy, others as noted above. Intensity of services: 3 hours a day, 6 days a week. Special considerations: There are no specific special or safety considerations that would likely preclude immediate implementation of an intensive rehabilitation program or subsequently influence the plan of care. ATTESTATION: Considering all the information above, it is my best judgment that this patient requires intensive rehabilitation therapy as described above and an inpatient hospital environment due to the complexity of nursing, medical, and rehabilitation needs required by the patient. Furthermore, this patient can reasonably be expected to participate in an benefit from an inpatient rehabilit ation stay with an interdisciplinary team approach to the delivery of rehabilitation care under the direction and supervision of rehabilitation physician. PROGNOSIS: Good ESTIMATED LENGTH OF STAY:24-28 days. PROJECTED DISCHARGE DESTINATION: Home with family support and any durable medical equipment required to increase functional safety and mobility. TIME SPENT COUNSELING AND COORDINATING INITIAL CARE: Greater than 70 minutes. Vital Signs Vital Sign - Last 24 Hours 09/09/18 09/09/18 09/09/18 09/09/18 15:20 18:40 20:00 23:54 Temp 97.0 98.0 Pulse 83 102 Resp 20 18 18 18 B/P (MAP) 119/58 (78) 130/62 (84) Pulse Ox 96 95 O2 Flow Rate 3.0 3.0 09/10/18 09/10/18 09/10/18 09/10/18 05:38 06:27 06:58 09:00 Temp 97.6 Pulse 93 82 Resp 18 18 18 B/P (MAP) 129/60 (83) 124/58 Pulse Ox 96 O2 Flow Rate 3.0 Laboratory Data CBC/BMP Laboratory Tests 09/10/18 05:07 Red Blood Count 3.43 L, Mean Corpuscular Volume 86.9, Mean Corpuscular Hemoglobin 27.1, Mean Corpuscular Hemoglobin Concent 31.2 L, Red Cell Distribution Width 18.1 H, Neutrophils (%) (Auto) 83.1 H, Lymphocytes (%) (Auto) 7.2 L, Monocytes (%) (Auto) 8.0 H, Eosinophils (%) (Auto) 0.8, Basophils (%) (Auto) 0.3, Neutrophils # (Auto) 8.7 H, Lymphocytes # (Auto) 0.8 L, Monocytes # (Auto) 0.8, Eosinophils # (Auto) 0.1, Basophils # (Auto) 0.0 09/10/18 05:08 Calcium Level 7.0 L, Aspartate Amino Transf (AST/SGOT) 29, Alanine Aminotransferase (ALT/SGPT) 14, Alkaline Phosphatase 146 H, Total Bilirubin 0.3, Total Protein 4.7 L, Albumin 1.4 L Labs 24H Laboratory Tests 2 09/09/18 17:01: Bedside Glucose (Misc Panel) 103 09/09/18 20:36: Bedside Glucose (Misc Panel) 243H 09/10/18 05:07: Immature Granulocyte % (Auto) 0.6, White Blood Count 10.4H, Red Blood Count 3.43L, Hemoglobin 9.3L, Hematocrit 29.8L, Mean Corpuscular Volume 86.9, Mean Corpuscular Hemoglobin 27.1, Mean Corpuscular Hemoglobin Concent 31.2L, Red Cell Distribution Width 18.1H, Platelet Count 377, Neutrophils (%) (Auto) 83.1H, Lymphocytes (%) (Auto) 7.2L, Monocytes (%) (Auto) 8.0H, Eosinophils (%) (Auto) 0.8, Basophils (%) (Auto) 0.3, Neutrophils # (Auto) 8.7H, Lymphocytes # (Auto) 0.8L, Monocytes # (Auto) 0.8, Eosinophils # (Auto) 0.1, Basophils # (Auto) 0.0, Nucleated Red Blood Cells % (auto) 0.0 09/10/18 05:08: Anion Gap 7L, Glomerular Filtration Rate > 60.0, Blood Urea Nitrogen 6L, Creatinine 0.41L, Sodium Level 143, Potassium Level 3.7, Chloride Level 106, Carbon Dioxide Level 30, Calcium Level 7.0L, Aspartate Amino Transf (AST/SGOT) 29, Alanine Aminotransferase (ALT/SGPT) 14, Alkaline Phosphatase 146H, Total Bilirubin 0.3, Total Protein 4.7L, Albumin 1.4L, Albumin/Globulin Ratio 0.42L FSBS Laboratory Tests Test 09/09/18 17:01 09/09/18 20:36 Range/Units Bedside Glucose (Misc Panel) 103 243 83-110 MG/DL Home Medications Scheduled Amlodipine Besylate (Amlodipine Besylate) 5 Mg Tablet, 5 MG PO DAILY, (Reported) TAKES AT NOON Atorvastatin Calcium (Atorvastatin Calcium) 40 Mg Tab, 40 MG PO QHS, (Reported) Ferrous Sulfate (Ferrous Sulfate) 325 Mg Tablet, 325 MG PO BID, (Reported) Glimepiride (Glimepiride) 2 Mg Tablet, 2 MG PO QHS, (Reported) Heparin Sodium (Porcine) (Heparin 300 Unit/3 ml (100/ml)) 300 Unit/3 Ml Syringe, 200 UNITS IV PICC Heparin Sodium,Porcine (Heparin Sodium) 5,000 Unit/1 Ml Vial, 5,000 UNITS SQ Q12H Metformin HCl (Metformin HCl ER) 500 Mg Tab.er.24h, 1,000 MG PO BID, (Reported) Pantoprazole Sodium (Protonix) 40 Mg Tab, 40 MG PO BID, (Reported) Piperacillin Sodium/Tazobactam (Zosyn 3.375 Gram Vial) 3.375 Gm Vial, 3.375 INJ IV Q6H Potassium Chloride (Klor-Con M10) 10 Meq Tab.er.prt, 20 MEQ PO DAILY Sucralfate (Sucralfate) 1 Gm Tablet, 1 GM PO ACHS Tiotropium Waldron (Spiriva) 18 Mcg Cap, 1 CAP INH DAILY, (Reported) Scheduled PRN Hydrocodone/Acetaminophen (Hydrocodone-Acetamin 5-325 mg) 1 Each Tablet, 1 TAB PO Q4HP PRN for MILD/MODERATE PAIN (PS 1-7) Allergies Coded Allergies: No Known Allergies (Verified , 02/24/06) A-FIB/CHADSVASC A-FIB History Current/History of A-Fib/PAF?: No IZZY FLORES MD Sep 10, 2018 10:28
[2018-09-10] MEDS ORDERED: SODIUM CHLORIDE 0.9% INJ 10 ML SYR IV PRN (10:30)
--- NOTE | 2018-09-10 10:32 | IPNPDOC ---
PM&R Progress Note DATE OF SERVICE: Sep 10, 2018 Group Practice Pediatrician Progress Note Subjective: Patient seen in bed, reporting dizziness with sitting up found to be borderline orthostatic, but symptoms gradually improved. REVIEW OF SYSTEMS: The following is a completed review of systems and has been reviewed. Review of systems otherwise unremarkable. PAIN: Patient self reports left limb pain EYES: no recent vision changes EARS, NOSE, & THROAT: denies dysphagia, rhinorrhea, or recent hearing loss CARDIOVASCULAR: denies chest pain/palpitations PULMONARY: + dyspnea on exertion, +productive cough GASTROINTESTINAL:denies diarrhea, +constipation GENITOURINARY: denies dysuria, +incontinence MUSCULOSKELETAL: left AKA NEUROLOGICAL: no tremor or seizure activity HEMATOLOGICAL: +anemia SKIN: left AKA incision PSYCHIATRIC: Unremarkable All other review of systems found to be negative. PHYSICAL EXAMINATION: VITAL SIGNS: Please see below. GENERAL: Pleasant and cooperative. No acute distress. HEENT: PERRL. Extraocular movements intact. Clear conjunctiva CARDIOVASCULAR: Regular rate and rhythm. No murmurs, rubs, or gallops LUNGS: +basilar crackles, No wheezes. scattered rhonchi ABDOMEN: Soft, nontender, nondistended. Positive bowel sounds. Normal active bowel sounds NEUROLOGICAL: Alert and oriented times three. Cranial nerves II through XII grossly intact. Sensation grossly intact EXTREMITIES: 5-\5 strength bilateral upper extremities. 5\5 strength right lower extremity. >3/5 left hip flexors and abduction +RLE edema SKIN: left residual limb incision without induration, mildly erythematous -sacrum mild erythema, no pressure ulcers ASSESSMENT:78-year-old F with past medical history of PVD who presents status post left AKA PLAN: 1. Rehab: PT, OT, stretch left limb to prevent hip flexor or abduction contractures, teach limb care, strengthen RLE, improve trunk control, upper body strengthening, and shoulder protection techniques for wheelchair propulsion 2. Neuro: avoid deliriogenic medications given recent episosed of altered mental status 3. CArdio: [facility] HTN- c/u BP meds, [facility] HLD c/u statin- medicine consulted to help manage -c/u lasix given crackles on exam and RLE edema, monitor [place]- will lower from 40mg daily to 20mg to daily to avoid dizziness/orthstatics 4. Vasc: [facility] PVD s/p Left AKA- will consult vascular, currently off Plavix given hx of GI bleed, c/u ZOsyn 5. Resp: chronic smoker with COPD, currently on 02, will attempt to wean, will start Duonebs and guaifenesin for productive cough- on Zosyn 6. Endo: pmh DM, c/u oral home meds will add ISS and monitor 7. GI: pmh upper and lower GI bleed, c/u protonix and sucralfate 8. DVT ppx: Teds to RLE and heparin BID 9. : monitor PVRs, will start Day given incontinence and to keep limb clean and dry 10. Skin: per vascular recs keep LLE limb unwrapped-recs appreciated, will c/u silver otpifoam, Zinc oxide to sacrum BID 11. Dispo: TBD 12. Pain: Tylenol standing and oxycodone prn 12. DNR Allergies Coded Allergies: No Known Allergies (Verified , 02/24/06) Vital Signs Vital Signs Date Time Temp Pulse Resp B/P (MAP) Pulse Ox O2 Delivery O2 Flow Rate FiO2 09/10/18 10:27 18 09/10/18 09:00 82 124/58 09/10/18 05:38 97.6 96 3.0 Laboratory Data CBC/BMP Laboratory Tests 09/10/18 05:07 Red Blood Count 3.43 L, Mean Corpuscular Volume 86.9, Mean Corpuscular Hemoglobin 27.1, Mean Corpuscular Hemoglobin Concent 31.2 L, Red Cell Distribution Width 18.1 H, Neutrophils (%) (Auto) 83.1 H, Lymphocytes (%) (Auto) 7.2 L, Monocytes (%) (Auto) 8.0 H, Eosinophils (%) (Auto) 0.8, Basophils (%) (Auto) 0.3, Neutrophils # (Auto) 8.7 H, Lymphocytes # (Auto) 0.8 L, Monocytes # (Auto) 0.8, Eosinophils # (Auto) 0.1, Basophils # (Auto) 0.0 09/10/18 05:08 Calcium Level 7.0 L, Aspartate Amino Transf (AST/SGOT) 29, Alanine Aminotransferase (ALT/SGPT) 14, Alkaline Phosphatase 146 H, Total Bilirubin 0.3, Total Protein 4.7 L, Albumin 1.4 L Labs 24H Laboratory Tests 2 09/09/18 17:01: Bedside Glucose (Misc Panel) 103 09/09/18 20:36: Bedside Glucose (Misc Panel) 243H 09/10/18 05:07: Immature Granulocyte % (Auto) 0.6, White Blood Count 10.4H, Red Blood Count 3.43L, Hemoglobin 9.3L, Hematocrit 29.8L, Mean Corpuscular Volume 86.9, Mean Corpuscular Hemoglobin 27.1, Mean Corpuscular Hemoglobin Concent 31.2L, Red Cell Distribution Width 18.1H, Platelet Count 377, Neutrophils (%) (Auto) 83.1H, Lymphocytes (%) (Auto) 7.2L, Monocytes (%) (Auto) 8.0H, Eosinophils (%) (Auto) 0.8, Basophils (%) (Auto) 0.3, Neutrophils # (Auto) 8.7H, Lymphocytes # (Auto) 0.8L, Monocytes # (Auto) 0.8, Eosinophils # (Auto) 0.1, Basophils # (Auto) 0.0, Nucleated Red Blood Cells % (auto) 0.0 09/10/18 05:08: Anion Gap 7L, Glomerular Filtration Rate > 60.0, Blood Urea Nitrogen 6L, Creatinine 0.41L, Sodium Level 143, Potassium Level 3.7, Chloride Level 106, Carbon Dioxide Level 30, Calcium Level 7.0L, Aspartate Amino Transf (AST/SGOT) 29, Alanine Aminotransferase (ALT/SGPT) 14, Alkaline Phosphatase 146H, Total Bilirubin 0.3, Total Protein 4.7L, Albumin 1.4L, Albumin/Globulin Ratio 0.42L Current Medications Current Medications Current Medications Acetaminophen (Tylenol Tab) 1,000 mg TID PO Last administered on 09/10/18at 09:00; Start 09/09/18 at 21:00 Albuterol/ Ipratropium (Duoneb (Ipr 0.5mg/Alb 2.5mg)) 3 ml RTID NEB Last administered on 09/10/18at 07:25; Start 09/09/18 at 20:00 Amlodipine Besylate (Norvasc) 5 mg DAILY PO Last administered on 09/10/18at 09:00; Start 09/10/18 at 09:00 Atorvastatin Calcium (Lipitor) 40 mg QHS PO Last administered on 09/09/18at 20:48; Start 09/09/18 at 21:00 Bisacodyl (Dulcolax Suppository) 10 mg DAILYPRN PRN [place] CONSTIPATION; Start 09/09/18 at 16:45 Dextrose (Dextrose 50%) 25 ml ASDIRECTED PRN IV SEE LABEL COMMENTS; Start 09/09/18 at 16:45 Docusate Sodium (Colace) 100 mg BID PO Last administered on 09/10/18at 09:14; Start 09/09/18 at 21:00 Ferrous Gluconate (Fergon) 324 mg BID PO Last administered on 09/10/18at 09:01; Start 09/09/18 at 21:00 Furosemide (Lasix) 40 mg DAILY PO Last administered on 09/10/18at 09:01; Start 09/10/18 at 09:00 Glimepiride (Amaryl) 2 mg QHS PO Last administered on 09/09/18at 20:49; Start 09/09/18 at 21:00 Glucagon (Glucagon) 1 mg ASDIRECTED PRN SC SEE LABEL COMMENTS; Start 09/09/18 at 16:45 Glucose (Glucose) 16 GM ASDIRECTED PRN PO SEE LABEL COMMENTS; Start 09/09/18 at 16:45 Guaifenesin (Robitussin Tab) 400 mg TID PO Last administered on 09/10/18at 08:59; Start 09/09/18 at 21:00 Heparin Sodium (Heparin (Flush)) 200 units ASDIRECTED PRN IV SEE LABEL COMMENTS Last administered on 09/10/18at 00:37; Start 09/09/18 at 18:15 Heparin Sodium (Heparin (Flush)) 200 units PICC IV Last administered on 09/10/18at 05:11; Start 09/10/18 at 06:00 Heparin Sodium (Porcine) (Heparin) 5,000 units Q12H SC Last administered on 09/10/18at 09:13; Start 09/09/18 at 21:00 Insulin Human Lispro (HumaLOG INSULIN) SEE PROTOCOL TABLE AC SC ; Start 09/09/18 at 17:30 Insulin Human Lispro (HumaLOG INSULIN) SEE PROTOCOL TABLE QHS SC ; Start 09/09/18 at 21:00 Magnesium Hydroxide (Milk Of Magnesia) 30 ml DAILYPRN PRN PO CONSTIPATION; Start 09/09/18 at 16:45 Metformin HCl (Glucophage Xr) 1,000 mg BID PO Last administered on 09/09/18 20:48; Start 09/09/18 at 21:00; Stop 09/10/18 at 09:33; Status DC Ondansetron HCl (Zofran) 4 mg Q6HP PRN PO NAUSEA; Start 09/09/18 at 16:45 Oxycodone HCl (Roxicodone, Oxyir) 5 mg Q4HP PRN PO PAIN Last administered on 09/10/18 10:27; Start 09/09/18 at 16:45 Pantoprazole Sodium (Protonix) 40 mg DAILY PO Last administered on 09/10/18 09:01; Start 09/10/18 at 09:00 Piperacillin Sod/ Tazobactam Sod 3.375 gm/Dextrose 50 ml @ 50 mls/hr Q6H IV Last administered on 09/10/18 10:27; Start 09/09/18 at 17:00 Potassium Chloride (Micro-K Extencaps) 20 meq DAILY PO Last administered on 09/10/18 09:00; Start 09/10/18 at 09:00 Senna (Senokot) 1 tab QHS PO Last administered on 09/09/18 20:48; Start 09/09/18 at 21:00 Sodium Chloride (Saline Lock Flush) 10 ml ASDIRECTED PRN IV SEE LABEL COMMENTS Last administered on 09/10/18 00:37; Start 09/09/18 at 18:15 Sodium Chloride (Saline Lock Flush) 10 ml PICC IV Last administered on 09/10/18 05:11; Start 09/10/18 at 06:00 Sucralfate (Carafate) 1 gm ACHS PO Last administered on 09/10/18 09:01; Start 09/09/18 at 17:30 Tiotropium [place] (Spiriva Handihaler) 1 inhalation DAILY@08 INH Last administered on 09/10/18 07:25; Start 09/10/18 at 08:00 Zinc Oxide (Boudreauxs Butt Paste) sacrum TID TOP Last administered on 09/10/18 08:59; Start 09/09/18 at 21:00 IZZY FLORES MD Sep 10, 2018 10:32
[2018-09-10 14:00] VITALS: BP 107/52
--- NOTE | 2018-09-10 16:37 | IPNPDOC ---
Text Note Date of Service The patient was seen on 09/10/18. NOTE S: patient known to me from recent hospitalization for PVD that failed revascularization and required subsequent left AKA. DM, HTN, COPD and possible bacterial HCAP with zosyn and currently states no cough, no SOB, no CP, no SMITH. She states she had "lots of activity" today with getting into wheelchair, etc and is tired this afternoon. States no stump pain. O: Vitals as below General: pleasant elderly female , NAD AAOx3 HRRR LCTA no W/R/R Ext: no ankle edema on right; left stump non occlusive dressing intact Labs reviewed Item Value Date Time Bedside Glucose (Misc Panel) 182 MG/DL H 09/10/18 1144 Bedside Glucose (Misc Panel) 243 MG/DL H 09/09/18 2036 Bedside Glucose (Misc Panel) 103 MG/DL 09/09/18 1701 A/P: 1. Possible bacterial HCAP - currently on zosyn (started 09/07/18 after morphine induced hypoxia and silent aspiration). She was cleared by speech therapy. Will change zosyn to augmentin for 4 more days (total 7 day treatment) and monitor. If continues to do well, consider removing PICC line in 24-48 hours. Continue mucolytic/nebs. 2 Acute on Chronic anemia: acute anemia is due to blood loss from GI Bleed from plavix, post op blood loss from groin/angiogram; Chronic anemia is secondary to chronic disease (DM, COPD, HTN and chronic GI bleed); H/H is stable compared to discharge. Would not restart plavix due to resik of bleeding from GI tract. Previous hospitalization has documented discussion about risk/benefit of anticoagulation with PVD and at this time, because of GI bleed in past, patient declines use of NOAC, Plavix, etc. Recommend repeating CBC in 1 week to monitor H/H Continue iron therapy 3. Peripheral arterial disease S/P left AKA (09/07/18) - management by Dr Salazar; oxycodone prn pain 4. History of GI bleed with no reoccurance- continue with protonix and carafate 5. Diabetes -without snf insulin, no hypoglycemia, no hyperglycemia - continue with oral Glimepiride (if hypoglycemia occurs, then d/c oral agent); hold metformen. SSI prn. 6. HTN: On norvasc and lasix. continue K to avoid hypokalemia - stable 7 COPD: no exacerbation; continue mucolytic and nebs, spiriva 8. Moderate protein calorie malnutrition- add nutritional supplement (ensure, pulmicare, or glucerna) 9. Spiculated lung masses outpatient follow-up needed Current Medications Piperacillin Sod/ Tazobactam Sod 3.375 gm/Dextrose 50 ml @ 50 mls/hr Q6H IV Last administered on 09/10/18 10:27; Start 09/09/18 at 17:00 - day #4 Acetaminophen (Tylenol Tab) 1,000 mg TID PO Last administered on 09/10/18 09:00; Start 09/09/18 at 21:00 Oxycodone HCl (Roxicodone, Oxyir) 5 mg Q4HP PRN PO PAIN Last administered on 09/10/18 14:57; Start 09/09/18 at 16:45 Amlodipine Besylate (Norvasc) 5 mg DAILY PO Last administered on 09/10/18at 09:00; Start 09/10/18 at 09:00 Furosemide (Lasix) 20 mg DAILY PO ; Start 09/11/18 at 09:00 Potassium Chloride (Micro-K Extencaps) 20 meq DAILY PO Last administered on 09/10/18 09:00; Start 09/10/18 at 09:00 Atorvastatin Calcium (Lipitor) 40 mg QHS PO Last administered on 09/09/18at 20:48; Start 09/09/18 at 21:00 Docusate Sodium (Colace) 100 mg BID PO Last administered on 09/10/18at 09:14; Start 09/09/18 at 21:00 Senna (Senokot) 1 tab QHS PO Last administered on 09/09/18 20:48; Start 09/09/18 at 21:00 Ferrous Gluconate (Fergon) 324 mg BID PO Last administered on 09/10/18 09:01; Start 09/09/18 at 21:00 Pantoprazole Sodium (Protonix) 40 mg DAILY PO Last administered on 09/10/18 09:01; Start 09/10/18 at 09:00 Sucralfate (Carafate) 1 gm ACHS PO Last administered on 09/10/18 12:13; Start 09/09/18 at 17:30 Glimepiride (Amaryl) 2 mg QHS PO Last administered on 09/09/18 20:49; Start 09/09/18 at 21:00 Insulin Human Lispro (HumaLOG INSULIN) SEE PROTOCOL TABLE AC SC Last administered on 09/10/18 12:13; Start 09/09/18 at 17:30 Insulin Human Lispro (HumaLOG INSULIN) SEE PROTOCOL TABLE QHS SC ; Start 09/09/18 at 21:00 Guaifenesin (Robitussin Tab) 400 mg TID PO Last administered on 09/10/18 08: 59; Start 09/09/18 at 21:00 Tiotropium [place] (Spiriva Handihaler) 1 inhalation DAILY@08 INH Last administered on 09/10/18 07:25; Start 09/10/18 at 08:00 Albuterol/ Ipratropium (Duoneb (Ipr 0.5mg/Alb 2.5mg)) 3 ml RTID NEB Last administered on 09/10/18 07:25; Start 09/09/18 at 20:00 Zinc Oxide (Boudreauxs Butt Paste) sacrum TID TOP Last administered on 09/10/18 08:59; Start 09/09/18 at 21:00 PRN Bowel regimen PRN Hypoglycemia protocol HEPARIN PICC LINE FLUSHES DVT PROPHYLAXIS: Heparin Sodium (Porcine) (Heparin) 5,000 units Q12H SC Last administered on 09/10/18 09:13; Start 09/09/18 at 21:00 VS,Fishbone, I+O VS, Fishbone, I+O Laboratory Tests 09/10/18 05:07 Red Blood Count 3.43 L, Mean Corpuscular Volume 86.9, Mean Corpuscular Hemoglobi n 27.1, Mean Corpuscular Hemoglobin Concent 31.2 L, Red Cell Distribution Width 18.1 H, Neutrophils (%) (Auto) 83.1 H, Lymphocytes (%) (Auto) 7.2 L, Monocytes (%) (Auto) 8.0 H, Eosinophils (%) (Auto) 0.8, Basophils (%) (Auto) 0.3, Neutrophils # (Auto) 8.7 H, Lymphocytes # (Auto) 0.8 L, Monocytes # (Auto) 0.8, Eosinophils # (Auto) 0.1, Basophils # (Auto) 0.0 09/10/18 05:08 Calcium Level 7.0 L, Aspartate Amino Transf (AST/SGOT) 29, Alanine Aminotransferase (ALT/SGPT) 14, Alkaline Phosphatase 146 H, Total Bilirubin 0.3, Total Protein 4.7 L, Albumin 1.4 L Vital Signs Date Time Temp Pulse Resp B/P (MAP) Pulse Ox O2 Delivery O2 Flow Rate FiO2 09/10/18 15:37 18 1.0 09/10/18 14:00 98.3 93 107/52 (76) 95 I&O- Last 24 Hours up to 6 AM 09/10/18 06:00 Intake Total 360 ml Balance 360 ml HARISH QUICK DO Sep 10, 2018 16:37
[2018-09-10] MEDS: SODIUM CHLORIDE 0.9% INJ 10 ML SYR IV SCH (16:48)
[2018-09-10 20:00] VITALS: BP 123/58
[2018-09-10] MEDS: SENNA 8.6 MG TAB (SENOKOT) PO SCH (21:02)
[2018-09-10] MEDS: AUGMENTIN 875 MG TAB PO SCH (21:03)
[2018-09-10] MEDS: GLIMEPIRIDE 2 MG TAB PO SCH (21:04)
[2018-09-10] MEDS: ATORVASTATIN 20 MG TAB PO SCH (21:04)
[2018-09-11] MEDS: SODIUM CHLORIDE 0.9% INJ 10 ML SYR IV SCH ×2 (05:16→17:04)
[2018-09-11] MEDS: oxyCODONE 5MG TAB PO PRN ×2 (05:19→20:44)
[2018-09-11 06:26] VITALS: BP 97/46
[2018-09-11] MEDS: TIOTROPIUM INHALER/CAPSULE (SPIRIVA) INH SCH (07:08)
[2018-09-11] MEDS: IPRATROPIUM 0.5MG/ALBUTEROL 2.5MG INH SOL UD 3ML (DUONEB)(J7620) NEB SCH ×3 (07:08→18:13)
[2018-09-11 07:30] LABS: BASO % 0.4 % (0.0-1.0); EOS # 0.1 10^3/uL (0.0-0.50); EOS % 1.1 % (0.0-3.0); HEMATOCRIT 29.3 % (36.0-47.0); HEMOGLOBIN 9.2 g/dl (12.0-15.5); LYMPH # 0.5 10^3/uL (1.5-4.5); LYMPH % 6.5 % (24.0-44.0); MEAN CORPUSCULAR HEMOGLOBIN 27.5 pg (27.0-33.0); MEAN CORPUSCULAR HGB CONC 31.4 g/dl (32.0-36.5); MEAN CORPUSCULAR VOLUME 87.5 fl (80.0-96.0); MONO # 0.8 10^3/uL (0.0-0.8); MONO % 9.3 % (0.0-5.0); NEUTROPHILS # 6.7 10^3/uL (1.8-7.7); NEUTROPHILS % 82.1 % (36.0-66.0); PLATELET COUNT, AUTOMATED 407 10^3/uL (150-450); RED BLOOD COUNT 3.35 10^6/uL (4.00-5.40); WHITE BLOOD COUNT 8.1 10^3/uL (4.0-10.0)
[2018-09-11 07:52] LABS: BLOOD UREA NITROGEN 9 MG/DL (7-18); CALCIUM LEVEL 7.6 MG/DL (8.8-10.2); CARBON DIOXIDE LEVEL 29 MEQ/L (21-32); CHLORIDE LEVEL 106 MEQ/L (98-107); CREATININE FOR GFR 0.48 MG/DL (0.55-1.30); GLOMERULAR FILTRATION RATE > 60.0 (>39); GLUCOSE, FASTING 109 MG/DL (70-100); POTASSIUM SERUM 3.7 MEQ/L (3.5-5.1); SODIUM LEVEL 141 MEQ/L (136-145)
[2018-09-11] MEDS: SUCRALFATE 1 GM TAB PO SCH ×4 (08:45→20:43)
[2018-09-11] MEDS: DOCUSATE SODIUM 100 MG CAP PO SCH ×2 (08:45→20:43)
[2018-09-11] MEDS: ACETAMINOPHEN 500 MG TAB PO SCH ×3 (08:45→20:45)
[2018-09-11] MEDS: FERROUS GLUCONATE 324 MG TAB PO SCH ×2 (08:46→20:43)
[2018-09-11] MEDS: POTASSIUM CHLORIDE 10 MEQ SR TABLET PO SCH (08:46)
[2018-09-11] MEDS: AUGMENTIN 875 MG TAB PO SCH ×2 (08:46→20:45)
[2018-09-11] MEDS: FUROSEMIDE 20 MG TAB PO SCH (08:46)
[2018-09-11] MEDS: PANTOPRAZOLE 40MG TAB (PROTONIX) PO SCH (08:46)
[2018-09-11] MEDS: HEPARIN SOD (PORCINE) 5000 UNITS/ML VIAL SC SCH ×2 (08:47→20:43)
[2018-09-11] MEDS: guaiFENesin 200 MG TAB PO SCH ×3 (08:47→20:44)
[2018-09-11] MEDS: HumaLOG INSULIN (NovoLOG) PER UNIT SC SCH ×4 (08:47→21:00)
[2018-09-11] MEDS: BOUDREAUX'S BUTT PASTE TOP SCH ×3 (08:48→20:53)
--- NOTE | 2018-09-11 12:10 | IPNPDOC ---
PM&R Progress Note DATE OF SERVICE: Sep 11, 2018 Hoist Worker Progress Note Subjective: Patient seen in wheelchair, able to propel it and denies any dizziness. Reports she will stop smoking when she goes home. REVIEW OF SYSTEMS: The following is a completed review of systems and has been reviewed. Review of systems otherwise unremarkable. PAIN: Patient self reports left limb pain EYES: no recent vision changes EARS, NOSE, & THROAT: denies dysphagia, rhinorrhea, or recent hearing loss CARDIOVASCULAR: denies chest pain/palpitations PULMONARY: + dyspnea on exertion, +productive cough GASTROINTESTINAL:denies diarrhea, +constipation GENITOURINARY: denies dysuria, +incontinence MUSCULOSKELETAL: left AKA NEUROLOGICAL: no tremor or seizure activity HEMATOLOGICAL: +anemia SKIN: left AKA incision PSYCHIATRIC: Unremarkable All other review of systems found to be negative. PHYSICAL EXAMINATION: VITAL SIGNS: Please see below. GENERAL: Pleasant and cooperative. No acute distress. HEENT: PERRL. Extraocular movements intact. Clear conjunctiva CARDIOVASCULAR: Regular rate and rhythm. No murmurs, rubs, or gallops LUNGS: +basilar crackles, No wheezes. scattered rhonchi ABDOMEN: Soft, nontender, nondistended. Positive bowel sounds. Normal active bowel sounds NEUROLOGICAL: Alert and oriented times three. Cranial nerves II through XII chad ssly intact. Sensation grossly intact EXTREMITIES: 5-\5 strength bilateral upper extremities. 5\5 strength right lower extremity. >3/5 left hip flexors and abduction +RLE edema : Day- draining clear urine SKIN: left residual limb incision without induration, mildly erythematous, c/d/i -sacrum mild erythema, no pressure ulcers ASSESSMENT:78-year-old F with past medical history of PVD who presents status post left AKA PLAN: 1. Rehab: PT, OT, stretch left limb to prevent hip flexor or abduction contractures, teach limb care, strengthen RLE, improve trunk control, upper body strengthening, and shoulder protection techniques for wheelchair propulsion 2. Neuro: avoid deliriogenic medications given recent episosed of altered mental status 3. CArdio: pmh HTN- c/u BP meds, pmh HLD c/u statin- medicine consulted to help manage -c/u lasix given crackles on exam and RLE edema, monitor [employer]- will lower from 40mg daily to 20mg to daily to avoid dizziness/orthstatics 4. Vasc: pmh PVD s/p Left AKA- will consult vascular, currently off Plavix given hx of GI bleed, switched from IV Zosyn to po Augmentin per medicine 5. Resp: chronic smoker with COPD, currently on 02, will attempt to wean, will start Duonebs and guaifenesin for productive cough- c/u augmentin -will need outpatient f/u for spiculated mass seen on recent chest imaging 6. Endo: pmh DM, c/u oral home meds will add ISS and monitor 7. GI: pmh upper and lower GI bleed, c/u protonix and sucralfate 8. DVT ppx: Teds to RLE and heparin BID 9. : monitor PVRs, c/u Day given incontinence and to keep limb clean and dry 10. Skin: per vascular recs keep LLE limb unwrapped-recs appreciated, will c/u silver otpifoam, Zinc oxide to sacrum BID 11. Dispo: TBD 12. Pain: Tylenol standing and oxycodone prn 13. Heme: anemia of chronic disease and hx of GI bleed- c/u Iron and monitor, will transfuse if <8 12. DNR Allergies Coded Allergies: No Known Allergies (Verified , 02/24/06) Vital Signs Vital Signs Date Time Temp Pulse Resp B/P (MAP) Pulse Ox O2 Delivery O2 Flow Rate FiO2 09/11/18 06:26 97.9 82 20 97/46 (63) 96 1.0 Laboratory Data CBC/BMP Laboratory Tests 09/11/18 07:14 Red Blood Count 3.35 L, Mean Corpuscular Volume 87.5, Mean Corpuscular Hemoglobin 27.5, Mean Corpuscular Hemoglobin Concent 31.4 L, Red Cell Distribution Width 18.3 H, Neutrophils (%) (Auto) 82.1 H, Lymphocytes (%) (Auto) 6.5 L, Monocytes (%) (Auto) 9.3 H, Eosinophils (%) (Auto) 1.1, Basophils (%) (Auto) 0.4, Neutrophils # (Auto) 6.7, Lymphocytes # (Auto) 0.5 L, Monocytes # (Auto) 0.8, Eosinophils # (Auto) 0.1, Basophils # (Auto) 0.0, Calcium Level 7.6 L Labs 24H Laboratory Tests 2 09/10/18 16:57: Bedside Glucose (Misc Panel) 77L 09/10/18 20:23: Bedside Glucose (Misc Panel) 190H 09/11/18 06:41: Bedside Glucose (Misc Panel) 112H 09/11/18 07:14: Immature Granulocyte % (Auto) 0.6, White Blood Count 8.1, Red Blood Count 3.35L, Hemoglobin 9.2L, Hematocrit 29.3L, Mean Corpuscular Volume 87.5, Mean Corpuscular Hemoglobin 27.5, Mean Corpuscular Hemoglobin Concent 31.4L, Red Cell Distribution Width 18.3H, Platelet Count 407, Neutrophils (%) (Auto) 82.1H, Lymphocytes (%) (Auto) 6.5L, Monocytes (%) (Auto) 9.3H, Eosinophils (%) (Auto) 1.1, Basophils (%) (Auto) 0.4, Neutrophils # (Auto) 6.7, Lymphocytes # (Auto) 0.5L, Monocytes # (Auto) 0.8, Eosinophils # (Auto) 0.1, Basophils # (Auto) 0.0, Nucleated Red Blood Cells % (auto) 0.0, Anion Gap 6L, Glomerular Filtration Rate > 60.0, Blood Urea Nitrogen 9, Creatinine 0.48L, Sodium Level 141, Potassium Level 3.7, Chloride Level 106, Carbon Dioxide Level 29, Calcium Level 7.6L 09/11/18 11:54: Bedside Glucose (Misc Panel) 185H Current Medications Current Medications Current Medications Acetaminophen (Tylenol Tab) 1,000 mg TID PO Last administered on 09/11/18at 08:45; Start 09/09/18 at 21:00 Albuterol/ Ipratropium (Duoneb (Ipr 0.5mg/Alb 2.5mg)) 3 ml RTID NEB Last administered on 09/11/18at 07:08; Start 09/09/18 at 20:00 Amlodipine Besylate (Norvasc) 5 mg DAILY PO Last administered on 09/10/18at 09:00; Start 09/10/18 at 09:00; Stop 09/11/18 at 08:15; Status DC Amoxicillin/ Clavulanate Potassium (Augmentin) 875 mg BID PO Last administered on 09/11/18 08:46; Start 09/10/18 at 21:00; Stop 09/14/18 at 21:00 Atorvastatin Calcium (Lipitor) 40 mg QHS PO Last administered on 09/10/18at 21: 04; Start 09/09/18 at 21:00 Bisacodyl (Dulcolax Suppository) 10 mg DAILYPRN PRN [place] CONSTIPATION; Start 09/09/18 at 16:45 Dextrose (Dextrose 50%) 25 ml ASDIRECTED PRN IV SEE LABEL COMMENTS; Start at 16:45 Docusate Sodium (Colace) 100 mg BID PO Last administered on 09/11/18at 08:45; Start 09/09/18 at 21:00 Ferrous Gluconate (Fergon) 324 mg BID PO Last administered on 09/11/18 08:46; Start 09/09/18 at 21:00 Furosemide (Lasix) 20 mg DAILY PO Last administered on 09/11/18at 08:46; Start 09/11/18 at 09:00 Furosemide (Lasix) 40 mg DAILY PO Last administered on 09/10/18at 09:01; Start 09/10/18 at 09:00; Stop 09/10/18 at 12:34; Status DC Glimepiride (Amaryl) 2 mg QHS PO Last administered on 09/10/18at 21:04; Start 09/09/18 at 21:00 Glucagon (Glucagon) 1 mg ASDIRECTED PRN SC SEE LABEL COMMENTS; Start 09/09/18 at 16:45 Glucose (Glucose) 16 GM ASDIRECTED PRN PO SEE LABEL COMMENTS; Start 09/09/18 at 16:45 Guaifenesin (Robitussin Tab) 400 mg TID PO Last administered on 09/10/18at 21: 03; Start 09/09/18 at 21:00 Heparin Sodium (Heparin (Flush)) 200 units ASDIRECTED PRN IV SEE LABEL COMMENTS Last administered on 09/10/18at 00:37; Start 09/09/18 at 18:15 Heparin Sodium (Heparin (Flush)) 200 units ASDIRECTED PRN IV SEE LABEL COMMENTS Last administered on 09/10/18at 16:49; Start 09/10/18 at 10:30 Heparin Sodium (Heparin (Flush)) 200 units PICC IV Last administered on 09/10/18at 05:11; Start 09/10/18 at 06:00; Stop 09/10/18 at 11:25; Status DC Heparin Sodium (Heparin (Flush)) 200 units PICC IV Last administered on 09/11/18at 05:17; Start 09/10/18 at 18:00 Heparin Sodium (Porcine) (Heparin) 5,000 units Q12H SC Last administered on 09/11/18at 08:47; Start 09/09/18 at 21:00 Insulin Human Lispro (HumaLOG INSULIN) SEE PROTOCOL TABLE AC SC Last administered on 09/11/18at 08:47; Start 09/09/18 at 17:30 Insulin Human Lispro (HumaLOG INSULIN) SEE PROTOCOL TABLE QHS SC ; Start 08/22 12/10 at 21:00 Magnesium Hydroxide (Milk Of Magnesia) 30 ml DAILYPRN PRN PO CONSTIPATION; Start 09/09/18 at 16:45 Metformin HCl (Glucophage Xr) 1,000 mg BID PO Last administered on 09/09/18at 20:48; Start 09/09/18 at 21:00; Stop 09/10/18 at 09:33; Status DC Ondansetron HCl (Zofran) 4 mg Q6HP PRN PO NAUSEA; Start 09/09/18 at 16:45 Oxycodone HCl (Roxicodone, Oxyir) 5 mg Q4HP PRN PO PAIN Last administered on 09/11/18at 05:19; Start 09/09/18 at 16:45 Pantoprazole Sodium (Protonix) 40 mg DAILY PO Last administered on 09/11/18at 08:46; Start 09/10/18 at 09:00 Piperacillin Sod/ Tazobactam Sod 3.375 gm/Dextrose 50 ml @ 50 mls/hr Q6H IV Last administered on 09/10/18at 10:27; Start 09/09/18 at 17:00; Stop 09/10/18 at 16:41; Status DC Potassium Chloride (Micro-K Extencaps) 20 meq DAILY PO Last administered on 09/11/18at 08:46; Start 09/10/18 at 09:00 Senna (Senokot) 1 tab QHS PO Last administered on 09/10/18at 21:02; Start 09/09/18 at 21:00 Sodium Chloride (Saline Lock Flush) 10 ml ASDIRECTED PRN IV SEE LABEL COMMENTS Last administered on 09/10/18at 00:37; Start 09/09/18 at 18:15 Sodium Chloride (Saline Lock Flush) 10 ml ASDIRECTED PRN IV SEE LABEL COMMENTS Last administered on 09/10/18at 16:49; Start 09/10/18 at 10:30 Sodium Chloride (Saline Lock Flush) 10 ml PICC IV Last administered on 09/10/18at 05:11; Start 09/10/18 at 06:00; Stop 09/10/18 at 11:25; Status DC Sodium Chloride (Saline Lock Flush) 10 ml PICC IV Last administered on 09/11/18at 05:16; Start 09/10/18 at 18:00 Sucralfate (Carafate) 1 gm ACHS PO Last administered on 09/11/18at 08:45; Start 09/09/18 at 17:30 Tiotropium [place] (Spiriva Handihaler) 1 inhalation DAILY@08 INH Last administered on 09/11/18at 07:08; Start 09/10/18 at 08:00 Zinc Oxide (Boudreauxs Butt Paste) sacrum TID TOP Last administered on 09/11/18a t 08:48; Start 09/09/18 at 21:00 IZZY FLORES MD Sep 11, 2018 12:10
[2018-09-11 14:00] VITALS: BP 109/55
[2018-09-11 20:00] VITALS: BP 113/57
[2018-09-11] MEDS: SENNA 8.6 MG TAB (SENOKOT) PO SCH (20:43)
[2018-09-11] MEDS: ATORVASTATIN 20 MG TAB PO SCH (20:44)
[2018-09-11] MEDS: GLIMEPIRIDE 2 MG TAB PO SCH (20:44)
[2018-09-12] MEDS: oxyCODONE 5MG TAB PO PRN ×4 (02:55→21:28)
[2018-09-12] MEDS: SODIUM CHLORIDE 0.9% INJ 10 ML SYR IV SCH ×2 (05:20→17:42)
[2018-09-12 06:00] VITALS: BP 130/62
[2018-09-12] MEDS: IPRATROPIUM 0.5MG/ALBUTEROL 2.5MG INH SOL UD 3ML (DUONEB)(J7620) NEB SCH ×4 (07:19→20:00)
[2018-09-12] MEDS: TIOTROPIUM INHALER/CAPSULE (SPIRIVA) INH SCH (07:19)
[2018-09-12] MEDS: HumaLOG INSULIN (NovoLOG) PER UNIT SC SCH ×4 (07:30→21:40)
[2018-09-12] MEDS: PANTOPRAZOLE 40MG TAB (PROTONIX) PO SCH (09:13)
[2018-09-12] MEDS: FERROUS GLUCONATE 324 MG TAB PO SCH ×2 (09:13→21:28)
[2018-09-12] MEDS: FUROSEMIDE 20 MG TAB PO SCH (09:13)
[2018-09-12] MEDS: SUCRALFATE 1 GM TAB PO SCH ×4 (09:13→21:28)
[2018-09-12] MEDS: guaiFENesin 200 MG TAB PO SCH ×3 (09:13→21:29)
[2018-09-12] MEDS: ACETAMINOPHEN 500 MG TAB PO SCH ×3 (09:14→21:28)
[2018-09-12] MEDS: POTASSIUM CHLORIDE 10 MEQ SR TABLET PO SCH (09:14)
[2018-09-12] MEDS: DOCUSATE SODIUM 100 MG CAP PO SCH ×2 (09:14→21:28)
[2018-09-12] MEDS: AUGMENTIN 875 MG TAB PO SCH ×2 (09:14→21:28)
[2018-09-12] MEDS: BOUDREAUX'S BUTT PASTE TOP SCH ×3 (09:15→21:40)
[2018-09-12] MEDS: HEPARIN SOD (PORCINE) 5000 UNITS/ML VIAL SC SCH ×2 (09:15→21:29)
[2018-09-12 14:00] VITALS: BP 124/59
--- NOTE | 2018-09-12 14:45 | IPNPDOC ---
Text Note Date of Service The patient was seen on 09/12/18. NOTE S: patient states feels good today. no leg pain. has been working with PT. She is being seen for HCAP, PAD, DM and hx of anemia due to GI bleed prior to admisison. She staets no leg pain, no cough, no SOB, noCP. PICC line intact; flushes well per staff but unable to get return O: Vitals as below General: pleasant NAD AAOx3 HRRR LCTA Ext: right upper extremity PICC intact; leftAKA Item Value Date Time Bedside Glucose (Misc Panel) 228 MG/DL H 09/12/18 1128 Bedside Glucose (Misc Panel) 85 MG/DL 09/12/18 0622 Bedside Glucose (Misc Panel) 158 MG/DL H 09/11/18 2028 Bedside Glucose (Misc Panel) 169 MG/DL H 09/11/18 1640 Bedside Glucose (Misc Panel) 185 MG/DL H 09/11/18 1154 A/P: 1. Possible bacterial HCAP - zosyn started 09/07/18 was changed to augmentin u ntil 09/14/18 and then stop antibiotic. If continues to do well, consider removing PICC line friday. Continue mucolytic/nebs. 2 Acute on Chronic anemia: acute anemia is due to blood loss from GI Bleed from plavix, post op blood loss from groin/angiogram; Chronic anemia is secondary to chronic disease (DM, COPD, HTN and chronic GI bleed); H/H is stable . Would not restart plavix due to resik of bleeding from GI tract. Previous hospitalization has documented discussion about risk/benefit of anticoagulation with PVD and at this time, because of GI bleed in past, patient declines use of NOAC, Plavix, etc. repeat CBC 09/14/18 and if H/H stable and does not require additional transfusion, then dc picc line. Continue iron therapy 3. Peripheral arterial disease S/P left AKA (09/07/18) - management by Dr Salazar; oxycodone prn pain 4. History of GI bleed with no reoccurance- continue with protonix and carafate 5. Diabetes -without penitentiary insulin, no hypoglycemia, no hyperglycemia - continue with oral Glimepiride (if hypoglycemia occurs, then d/c oral agent); hold metformen. SSI prn. 6. HTN: On norvasc and lasix. continue K to avoid hypokalemia - stable, check BMP on 09/14 7 COPD: no exacerbation; continue mucolytic and nebs, spiriva 8. Moderate protein calorie malnutrition- add nutritional supplement (ensure, pulmicare, or glucerna) 9. Spiculated lung masses outpatient follow-up needed VS,Fishbone, I+O VS, Fishbone, I+O Vital Signs Date Time Temp Pulse Resp B/P (MAP) Pulse Ox O2 Delivery O2 Flow Rate FiO2 09/12/18 14:00 97.8 93 18 124/59 (80) 91 09/11/18 06:26 1.0 I&O- Last 24 Hours up to 6 AM 09/12/18 06:00 Intake Total 960 ml Output Total 1500 ml Balance -540 ml HARISH QUICK DO Sep 12, 2018 14:45
[2018-09-12 20:00] VITALS: BP 123/65
[2018-09-12] MEDS: ATORVASTATIN 20 MG TAB PO SCH (21:28)
[2018-09-12] MEDS: SENNA 8.6 MG TAB (SENOKOT) PO SCH (21:28)
[2018-09-12] MEDS: GLIMEPIRIDE 2 MG TAB PO SCH (21:29)
[2018-09-13] MEDS: oxyCODONE 5MG TAB PO PRN (02:36)
[2018-09-13 06:00] VITALS: BP 135/65
[2018-09-13] MEDS: SODIUM CHLORIDE 0.9% INJ 10 ML SYR IV SCH ×2 (06:34→17:29)
[2018-09-13] MEDS: IPRATROPIUM 0.5MG/ALBUTEROL 2.5MG INH SOL UD 3ML (DUONEB)(J7620) NEB SCH ×3 (08:00→20:00)
[2018-09-13] MEDS: DOCUSATE SODIUM 100 MG CAP PO SCH ×2 (08:32→21:18)
[2018-09-13] MEDS: PANTOPRAZOLE 40MG TAB (PROTONIX) PO SCH (08:32)
[2018-09-13] MEDS: FUROSEMIDE 20 MG TAB PO SCH (08:32)
[2018-09-13] MEDS: SUCRALFATE 1 GM TAB PO SCH ×4 (08:32→21:18)
[2018-09-13] MEDS: guaiFENesin 200 MG TAB PO SCH ×3 (08:32→21:18)
[2018-09-13] MEDS: FERROUS GLUCONATE 324 MG TAB PO SCH ×2 (08:32→21:19)
[2018-09-13] MEDS: AUGMENTIN 875 MG TAB PO SCH ×2 (08:32→21:18)
[2018-09-13] MEDS: POTASSIUM CHLORIDE 10 MEQ SR TABLET PO SCH (08:33)
[2018-09-13] MEDS: HEPARIN SOD (PORCINE) 5000 UNITS/ML VIAL SC SCH ×2 (08:33→21:19)
[2018-09-13] MEDS: BOUDREAUX'S BUTT PASTE TOP SCH ×3 (08:33→21:19)
[2018-09-13] MEDS: HumaLOG INSULIN (NovoLOG) PER UNIT SC SCH ×4 (08:34→21:00)
[2018-09-13] MEDS: ACETAMINOPHEN 500 MG TAB PO SCH ×3 (10:31→21:18)
[2018-09-13] MEDS: TIOTROPIUM INHALER/CAPSULE (SPIRIVA) INH SCH (11:34)
--- NOTE | 2018-09-13 12:37 | IPNPDOC ---
Text Note Date of Service The patient was seen on 09/13/18. NOTE S: Patient states no pain. mild dizziness when going from supine to sitting but resolves. Working with OT this AM on bathing and grooming. Lee cathetar in place for skin protection. O: Vital as below General: pleasant , frail elderly female, NAD, AAOx3 HRRR LCTA no W/R/R Ext: no edema Skin: no decub, no skin breakdown to buttock, gluteals or anal opening. Lee cath intact A/P: 1.. Possible bacterial HCAP - zosyn started 09/07/18 was changed to augmentin until 09/14/18 and then stop antibiotic. If continues to do well, and no need for transfusion, then consider removing PICC line friday. Continue mucolytic/nebs. 2 Acute on Chronic anemia: acute anemia is due to blood loss from GI Bleed from plavix, post op blood loss from groin/angiogram; Chronic anemia is secondary to chronic disease (DM, COPD, HTN and chronic GI bleed); H/H is stable . Would not restart plavix due to resik of bleeding from GI tract. Previous hospitalization has documented discussion about risk/benefit of anticoagulation with PVD and at this time, because of GI bleed in past, patient declines use of NOAC, Plavix, etc. repeat CBC 09/14/18 and if H/H stable and does not require additional transfusion, then dc picc line. Continue iron therapy 3. Peripheral arterial disease S/P left AKA (09/07/18) - management by Dr Salazar; oxycodone prn pain; lee cath placed to protect perineum skin until patient mobile. would recommend d/c lee 4. History of GI bleed with no reoccurance- continue with protonix and carafate 5. Diabetes -without usp insulin, no hypoglycemia, no hyperglycemia - continue with oral Glimepiride (if hypoglycemia occurs, then d/c oral agent); hold metformen. SSI prn. 6. HTN: On norvasc and lasix. continue K to avoid hypokalemia - stable, check BMP on 09/14 7 COPD: no exacerbation; continue mucolytic and nebs, spiriva 8. Moderate protein calorie malnutrition- add nutritional supplement (ensure, pulmicare, or glucerna) 9. Spiculated lung masses outpatient follow-up needed VS,Fishbone, I+O VS, Fishbone, I+O Vital Signs Date Time Temp Pulse Resp B/P (MAP) Pulse Ox O2 Delivery O2 Flow Rate FiO2 09/13/18 06:00 97.9 90 18 135/65 (88) 96 09/11/18 06:26 1.0 I&O- Last 24 Hours up to 6 AM 09/13/18 06:00 Intake Total 1780 ml Output Total 4000 ml Balance -2220 ml HARISH QUICK DO Sep 13, 2018 12:37
[2018-09-13 14:00] VITALS: BP 121/60
[2018-09-13 20:00] VITALS: BP 127/62
[2018-09-13] MEDS: ATORVASTATIN 20 MG TAB PO SCH (21:18)
[2018-09-13] MEDS: SENNA 8.6 MG TAB (SENOKOT) PO SCH (21:18)
[2018-09-13] MEDS: GLIMEPIRIDE 2 MG TAB PO SCH (21:19)
[2018-09-14] MEDS: oxyCODONE 5MG TAB PO PRN ×3 (00:44→23:51)
[2018-09-14] MEDS: SODIUM CHLORIDE 0.9% INJ 10 ML SYR IV SCH (05:30)
[2018-09-14 05:31] VITALS: BP 127/62
[2018-09-14 07:15] LABS: HEMOGLOBIN 11.1 g/dl (12.0-15.5); MEAN CORPUSCULAR HGB CONC 30.8 g/dl (32.0-36.5); MEAN CORPUSCULAR VOLUME 87.6 fl (80.0-96.0); PLATELET COUNT, AUTOMATED 527 10^3/uL (150-450); RED BLOOD COUNT 4.11 10^6/uL (4.00-5.40); WHITE BLOOD COUNT 6.2 10^3/uL (4.0-10.0)
[2018-09-14] MEDS: TIOTROPIUM INHALER/CAPSULE (SPIRIVA) INH SCH (07:23)
[2018-09-14] MEDS: IPRATROPIUM 0.5MG/ALBUTEROL 2.5MG INH SOL UD 3ML (DUONEB)(J7620) NEB SCH ×3 (07:23→20:00)
[2018-09-14] MEDS: HumaLOG INSULIN (NovoLOG) PER UNIT SC SCH ×4 (07:25→20:31)
[2018-09-14 08:01] LABS: BLOOD UREA NITROGEN 14 MG/DL (7-18); CALCIUM LEVEL 8.3 MG/DL (8.8-10.2); CARBON DIOXIDE LEVEL 27 MEQ/L (21-32); CHLORIDE LEVEL 108 MEQ/L (98-107); GLOMERULAR FILTRATION RATE > 60.0 (>39); GLUCOSE, FASTING 95 MG/DL (70-100); POTASSIUM SERUM 4.7 MEQ/L (3.5-5.1); SODIUM LEVEL 139 MEQ/L (136-145)
[2018-09-14] MEDS: AUGMENTIN 875 MG TAB PO SCH ×2 (08:31→20:29)
[2018-09-14] MEDS: FUROSEMIDE 20 MG TAB PO SCH (08:31)
[2018-09-14] MEDS: SUCRALFATE 1 GM TAB PO SCH ×4 (08:31→20:29)
[2018-09-14] MEDS: PANTOPRAZOLE 40MG TAB (PROTONIX) PO SCH (08:31)
[2018-09-14] MEDS: FERROUS GLUCONATE 324 MG TAB PO SCH ×2 (08:32→20:30)
[2018-09-14] MEDS: ACETAMINOPHEN 500 MG TAB PO SCH ×3 (08:32→20:30)
[2018-09-14] MEDS: DOCUSATE SODIUM 100 MG CAP PO SCH ×2 (08:32→20:29)
[2018-09-14] MEDS: POTASSIUM CHLORIDE 10 MEQ SR TABLET PO SCH (08:32)
[2018-09-14] MEDS: guaiFENesin 200 MG TAB PO SCH ×3 (08:32→20:29)
[2018-09-14] MEDS: HEPARIN SOD (PORCINE) 5000 UNITS/ML VIAL SC SCH ×2 (08:32→20:29)
[2018-09-14] MEDS: BOUDREAUX'S BUTT PASTE TOP SCH ×3 (09:08→20:31)
--- NOTE | 2018-09-14 10:26 | IPNPDOC ---
PM&R Progress Note DATE OF SERVICE: Sep 14, 2018 Sdc Teacher Progress Note Subjective: Patient seen in therapy stating her cough is much better and she feels more energetic. REVIEW OF SYSTEMS: The following is a completed review of systems and has been reviewed. Review of systems otherwise unremarkable. PAIN: Patient self reports left limb pain EYES: no recent vision changes EARS, NOSE, & THROAT: denies dysphagia, rhinorrhea, or recent hearing loss CARDIOVASCULAR: denies chest pain/palpitations PULMONARY: + dyspnea on exertion, cough resolved GASTROINTESTINAL:denies diarrhea, +constipation GENITOURINARY: denies dysuria, +incontinence MUSCULOSKELETAL: left AKA NEUROLOGICAL: no tremor or seizure activity HEMATOLOGICAL: +anemia SKIN: left AKA incision PSYCHIATRIC: Unremarkable All other review of systems found to be negative. PHYSICAL EXAMINATION: VITAL SIGNS: Please see below. GENERAL: Pleasant and cooperative. No acute distress. HEENT: PERRL. Extraocular movements intact. Clear conjunctiva CARDIOVASCULAR: Regular rate and rhythm. No murmurs, rubs, or gallops LUNGS: CTA, No wheezes. no rhonchi ABDOMEN: Soft, nontender, nondistended. Positive bowel sounds. Normal active bowel sounds NEUROLOGICAL: Alert and oriented times three. Cranial nerves II through XII grossly intact. Sensation grossly intact EXTREMITIES: 5-\5 strength bilateral upper extremities. 5\5 strength right lower extremity. >3/5 left hip flexors and abduction +RLE edema : Day- draining clear urine SKIN: left residual limb incision without induration, mildly erythematous, c/d/i -sacrum mild erythema, no pressure ulcers ASSESSMENT:78-year-old F with past medical history of PVD who presents status post left AKA PLAN: 1. Rehab: PT, OT, stretch left limb to prevent hip flexor or abduction contractures, teach limb care, strengthen RLE, improve trunk control, upper body strengthening, and shoulder protection techniques for wheelchair propulsion 2. Neuro: avoid deliriogenic medications given recent episode of altered mental status 3. CArdio: [facility] HTN- c/u BP meds, [facility] HLD c/u statin- medicine consulted to help manage -c/u lasix given crackles on exam and RLE edema, monitor [employer]- will lower from 40mg daily to 20mg to daily to avoid dizziness/orthstatics 4. Vasc: [facility] PVD s/p Left AKA- will consult vascular, currently off Plavix given hx of GI bleed, switched from IV Zosyn to po Augmentin per medicine 5. Resp: chronic smoker with COPD, currently on 02, will attempt to wean, will start Duonebs and guaifenesin for productive cough- c/u augmentin -will need outpatient f/u for spiculated mass seen on recent chest imaging 6. Endo: pmh DM, c/u oral home meds will add ISS and monitor-stable 7. GI: pmh upper and lower GI bleed, c/u protonix and sucralfate 8. DVT ppx: Teds to RLE and heparin BID 9. : monitor PVRs, c/u Day given incontinence and to keep limb clean and dry 10. Skin: per vascular recs keep LLE limb unwrapped-recs appreciated, will c/u silver otpifoam, Zinc oxide to sacrum BID 11. Dispo: TBD 12. Pain: Tylenol standing and oxycodone prn 13. Heme: anemia of chronic disease and hx of GI bleed- c/u Iron and monitor, will transfuse if <8 14. Hypokalemia- currently on K supplements, however will decrease from 20-->10 meq to avoid hyperkalemia and check BMP tomorrow 12. DNR Allergies Coded Allergies: No Known Allergies (Verified , 02/24/06) Vital Signs Vital Signs Date Time Temp Pulse Resp B/P (MAP) Pulse Ox O2 Delivery O2 Flow Rate FiO2 09/14/18 07:15 18 09/14/18 05:31 97.9 90 127/62 (83) 96 09/11/18 06:26 1.0 Laboratory Data CBC/BMP Laboratory Tests 09/14/18 06:48 Red Blood Count 4.11, Mean Corpuscular Volume 87.6, Mean Corpuscular Hemoglobin 27.0, Mean Corpuscular Hemoglobin Concent 30.8 L, Red Cell Distribution Width 18.5 H, Calcium Level 8.3 L Labs 24H Laboratory Tests 2 09/13/18 11:43: Bedside Glucose (Misc Panel) 146H 09/13/18 16:34: Bedside Glucose (Misc Panel) 110 09/13/18 19:34: Bedside Glucose (Misc Panel) 107 09/14/18 06:33: Bedside Glucose (Misc Panel) 91 09/14/18 06:48: Nucleated Red Blood Cells % (auto) 0.0, Anion Gap 4L, Glomerular Filtration Rate > 60.0, Blood Urea Nitrogen 14#, Creatinine 0.50L, Sodium Level 139, Potassium Level 4.7#, Chloride Level 108H, Carbon Dioxide Level 27, Calcium Level 8.3L Current Medications Current Medications Current Medications Acetaminophen (Tylenol Tab) 1,000 mg TID PO Last administered on 09/14/18 08:32; Start 09/09/18 at 21:00 Albuterol/ Ipratropium (Duoneb (Ipr 0.5mg/Alb 2.5mg)) 3 ml RTID NEB Last administered on 09/11/18 18:13; Start 09/09/18 at 20:00 Amlodipine Besylate (Norvasc) 5 mg DAILY PO Last administered on 09/10/18 09:00; Start 09/10/18 at 09:00; Stop 09/11/18 at 08:15; Status DC Amoxicillin/ Clavulanate Potassium (Augmentin) 875 mg BID PO Last administered on 09/14/18 08:31; Start 09/10/18 at 21:00; Stop 09/14/18 at 21:00 Atorvastatin Calcium (Lipitor) 40 mg QHS PO Last administered on 09/13/18 21:18; Start 09/09/18 at 21:00 Bisacodyl (Dulcolax Suppository) 10 mg DAILYPRN PRN [place] CONSTIPATION; Start 09/09/18 at 16:45 Dextrose (Dextrose 50%) 25 ml ASDIRECTED PRN IV SEE LABEL COMMENTS; Start 09/09/18 at 16:45 Docusate Sodium (Colace) 100 mg BID PO Last administered on 09/14/18 08:32; Start 09/09/18 at 21:00 Ferrous Gluconate (Fergon) 324 mg BID PO Last administered on 09/14/18 08:32; Start 09/09/18 at 21:00 Furosemide (Lasix) 20 mg DAILY PO Last administered on 09/14/18 08:31; Start 09/11/18 at 09:00 Furosemide (Lasix) 40 mg DAILY PO Last administered on 09/10/18 09:01; Start 09/10/18 at 09:00; Stop 09/10/18 at 12:34; Status DC Glimepiride (Amaryl) 2 mg QHS PO Last administered on 09/13/18at 21:19; Start 09/09/18 at 21:00 Glucagon (Glucagon) 1 mg ASDIRECTED PRN SC SEE LABEL COMMENTS; Start 09/09/18 at 16:45 Glucose (Glucose) 16 GM ASDIRECTED PRN PO SEE LABEL COMMENTS; Start 09/09/18 at 16:45 Guaifenesin (Robitussin Tab) 400 mg TID PO Last administered on 09/14/18 08:32; Start 09/09/18 at 21:00 Heparin Sodium (Heparin (Flush)) 200 units ASDIRECTED PRN IV SEE LABEL COMMENTS Last administered on 09/10/18at 00:37; Start 09/09/18 at 18:15 Heparin Sodium (Heparin (Flush)) 200 units ASDIRECTED PRN IV SEE LABEL COMMENTS Last administered on 09/10/18at 16:49; Start 09/10/18 at 10:30 Heparin Sodium (Heparin (Flush)) 200 units PICC IV Last administered on 05:11; Start 09/10/18 at 06:00; Stop 09/10/18 at 11:25; Status DC Heparin Sodium (Heparin (Flush)) 200 units PICC IV Last administered on 09/14/18 05:29; Start 09/10/18 at 18:00 Heparin Sodium (Porcine) (Heparin) 5,000 units Q12H SC Last administered on 09/14/18at 08:32; Start 09/09/18 at 21:00 Insulin Human Lispro (HumaLOG INSULIN) SEE PROTOCOL TABLE AC SC Last administered on 09/13/18at 17:28; Start 09/09/18 at 17:30 Insulin Human Lispro (HumaLOG INSULIN) SEE PROTOCOL TABLE QHS SC Last administered on 09/12/18at 21:40; Start 09/09/18 at 21:00 Magnesium Hydroxide (Milk Of Magnesia) 30 ml DAILYPRN PRN PO CONSTIPATION; Start 09/09/18 at 16:45 Metformin HCl (Glucophage Xr) 1,000 mg BID PO Last administered on 09/09/18at 20:48; Start 09/09/18 at 21:00; Stop 09/10/18 at 09:33; Status DC Ondansetron HCl (Zofran) 4 mg Q6HP PRN PO NAUSEA; Start 09/09/18 at 16:45 Oxycodone HCl (Roxicodone, Oxyir) 5 mg Q4HP PRN PO PAIN Last administered on 09/14/18 06:31; Start 09/09/18 at 16:45 Pantoprazole Sodium (Protonix) 40 mg DAILY PO Last administered on 09/14/18 08:31; Start 09/10/18 at 09:00 Piperacillin Sod/ Tazobactam Sod 3.375 gm/Dextrose 50 ml @ 50 mls/hr Q6H IV Last administered on 09/10/18 10:27; Start 09/09/18 at 17:00; Stop 09/10/18 at 16:41; Status DC Potassium Chloride (Micro-K Extencaps) 20 meq DAILY PO Last administered on 09/14/18 08:32; Start 09/10/18 at 09:00 Senna (Senokot) 1 tab QHS PO Last administered on 09/13/18 21:18; Start 09/09/18 at 21:00 Sodium Chloride (Saline Lock Flush) 10 ml ASDIRECTED PRN IV SEE LABEL COMMENTS Last administered on 09/10/18 00:37; Start 09/09/18 at 18:15 Sodium Chloride (Saline Lock Flush) 10 ml ASDIRECTED PRN IV SEE LABEL COMMENTS Last administered on 09/10/18 16:49; Start 09/10/18 at 10:30 Sodium Chloride (Saline Lock Flush) 10 ml PICC IV Last administered on 09/10/18 05:11; Start 09/10/18 at 06:00; Stop 09/10/18 at 11:25; Status DC Sodium Chloride (Saline Lock Flush) 10 ml PICC IV Last administered on 08/23 05:30; Start 09/10/18 at 18:00 Sucralfate (Carafate) 1 gm ACHS PO Last administered on 09/14/18 08:31; Start 09/09/18 at 17:30 Tiotropium [place] (Spiriva Handihaler) 1 inhalation DAILY@08 INH Last administered on 6/23/19at 11:34; Start 09/10/18 at 08:00 Zinc Oxide (Boudreauxs Butt Paste) sacrum TID TOP Last administered on 09/14/18at 09:08; Start 09/09/18 at 21:00 IZZY FLORES MD Sep 14, 2018 10:26
--- NOTE | 2018-09-14 12:22 | IPNPDOC ---
Subjective Date Seen The patient was seen on 09/14/18. Subjective Chief Complaint/HPI Up to chair bedside, Complains of left stump soreness, denies any signs or symptoms of bleeding. Denies chest pain, shortness of breath. Events since last encounter Patient has been participating in physical therapy without issues Objective Physical Examination Other physical findings GENERAL: NAD SKIN : Warm, dry HEENT: Atraumatic, normocephalic, PERRL, moist mucous membrane CV: Regular rate and rhythm, S1S2, no JVD RESP: CTAB, no accessory muscle use noted ABDOMEN: BS+, non distended, non tender MS: Left AKA NEURO: Alert and oriented x 3, CN2-12 grossly intact PSYCH: no anxiety or agitation, appropriate mood and affect. Assessment /Plan Assessment Peripheral arterial disease -S/P left AKA 09/07/2018 -Rehabilitation by primary team -Pain management by primary team -Day catheter continued due to impaired mobility Anemia due to acute blood loss -Hemoglobin stable -. Discontinue PICC line HCAP -Completed antibiotic therapy with Zosyn and Augmentin -Continue to monitor respiratory function -Supplemental oxygenation. If needed Type 2 diabetes mellitus -Finger stick checks prior to meals and at bedtime -Continue glimepiride Hypertension -Continue Norvasc and Lasix -Monitor electrolytes to keep potassium greater than 4, magnesium greater than 2 COPD -Currently stable without acute exacerbation -Continue Spiriva and scheduled bronchodilator therapy Spiculated lung mass -Significant risk factors -Outpatient follow-up with pulmonology evaluation and management Moderate protein calorie malnutrition -Continue nutritional supplements with ensure DVT prophylaxis -Heparin subcutaneous every 12 Plan/VTE VTE Prophylaxis Ordered?: Yes VS, I&O, 24H, Fishbone Vital Signs/I&O Vital Signs Date Time Temp Pulse Resp B/P (MAP) Pulse Ox O2 Delivery O2 Flow Rate FiO2 09/14/18 07:15 18 09/14/18 05:31 97.9 90 127/62 (83) 96 09/11/18 06:26 1.0 I&O- Last 24 Hours up to 6 AM 09/14/18 06:00 Intake Total 640 ml Output Total 1500 ml Balance -860 ml Laboratory Data 24H LABS Laboratory Tests 2 09/13/18 16:34: Bedside Glucose (Misc Panel) 110 09/13/18 19:34: Bedside Glucose (Misc Panel) 107 09/14/18 06:33: Bedside Glucose (Misc Panel) 91 09/14/18 06:48: Nucleated Red Blood Cells % (auto) 0.0, Anion Gap 4L, Glomerular Filtration Rate > 60.0, Blood Urea Nitrogen 14#, Creatinine 0.50L, Sodium Level 139, Potassium Level 4.7#, Chloride Level 108H, Carbon Dioxide Level 27, Calcium Level 8.3L CBC/BMP Laboratory Tests 09/14/18 06:48 Red Blood Count 4.11, Mean Corpuscular Volume 87.6, Mean Corpuscular Hemoglobin 27.0, Mean Corpuscular Hemoglobin Concent 30.8 L, Red Cell Distribution Width 18.5 H, Calcium Level 8.3 L [facility] Sep 14, 2018 12:22
[2018-09-14 14:32] VITALS: BP 119/56
[2018-09-14 20:10] VITALS: BP 135/64
[2018-09-14] MEDS: ATORVASTATIN 20 MG TAB PO SCH (20:29)
[2018-09-14] MEDS: SENNA 8.6 MG TAB (SENOKOT) PO SCH (20:29)
[2018-09-14] MEDS: GLIMEPIRIDE 2 MG TAB PO SCH (20:30)
[2018-09-15] MEDS: oxyCODONE 5MG TAB PO PRN ×3 (03:50→20:46)
[2018-09-15 05:49] VITALS: BP 141/60
[2018-09-15 06:44] LABS: BASO # 0.1 10^3/uL (0.0-0.2); BASO % 1.1 % (0.0-1.0); EOS # 0.2 10^3/uL (0.0-0.50); EOS % 2.6 % (0.0-3.0); HEMATOCRIT 38.5 % (36.0-47.0); HEMOGLOBIN 11.9 g/dl (12.0-15.5); LYMPH % 15.5 % (24.0-44.0); MEAN CORPUSCULAR HEMOGLOBIN 27.6 pg (27.0-33.0); MEAN CORPUSCULAR HGB CONC 30.9 g/dl (32.0-36.5); MEAN CORPUSCULAR VOLUME 89.3 fl (80.0-96.0); MONO # 0.7 10^3/uL (0.0-0.8); MONO % 10.8 % (0.0-5.0); NEUTROPHILS % 65.9 % (36.0-66.0); PLATELET COUNT, AUTOMATED 537 10^3/uL (150-450); RED BLOOD COUNT 4.31 10^6/uL (4.00-5.40); WHITE BLOOD COUNT 6.1 10^3/uL (4.0-10.0)
[2018-09-15 07:07] LABS: BLOOD UREA NITROGEN 15 MG/DL (7-18); CALCIUM LEVEL 8.4 MG/DL (8.8-10.2); CARBON DIOXIDE LEVEL 27 MEQ/L (21-32); CHLORIDE LEVEL 106 MEQ/L (98-107); CREATININE FOR GFR 0.52 MG/DL (0.55-1.30); GLOMERULAR FILTRATION RATE > 60.0 (>39); GLUCOSE, FASTING 101 MG/DL (70-100); POTASSIUM SERUM 4.7 MEQ/L (3.5-5.1); SODIUM LEVEL 139 MEQ/L (136-145)
[2018-09-15] MEDS: TIOTROPIUM INHALER/CAPSULE (SPIRIVA) INH SCH (07:21)
[2018-09-15] MEDS: IPRATROPIUM 0.5MG/ALBUTEROL 2.5MG INH SOL UD 3ML (DUONEB)(J7620) NEB SCH ×3 (07:21→20:00)
[2018-09-15] MEDS: HumaLOG INSULIN (NovoLOG) PER UNIT SC SCH ×4 (07:24→20:47)
[2018-09-15] MEDS: FERROUS GLUCONATE 324 MG TAB PO SCH ×2 (08:27→20:48)
[2018-09-15] MEDS: DOCUSATE SODIUM 100 MG CAP PO SCH ×2 (08:27→20:45)
[2018-09-15] MEDS: PANTOPRAZOLE 40MG TAB (PROTONIX) PO SCH (08:28)
[2018-09-15] MEDS: SUCRALFATE 1 GM TAB PO SCH ×4 (08:28→20:52)
[2018-09-15] MEDS: POTASSIUM CHLORIDE 10 MEQ SR TABLET PO SCH (08:28)
[2018-09-15] MEDS: FUROSEMIDE 20 MG TAB PO SCH (08:28)
[2018-09-15] MEDS: HEPARIN SOD (PORCINE) 5000 UNITS/ML VIAL SC SCH ×2 (08:28→20:47)
[2018-09-15] MEDS: guaiFENesin 200 MG TAB PO SCH ×3 (08:28→20:44)
[2018-09-15] MEDS: ACETAMINOPHEN 500 MG TAB PO SCH ×3 (08:29→20:45)
[2018-09-15] MEDS: BOUDREAUX'S BUTT PASTE TOP SCH ×3 (08:29→20:48)
--- NOTE | 2018-09-15 10:07 | IPNPDOC ---
PM&R Progress Note DATE OF SERVICE: Sep 15, 2018 Podopediatrician Progress Note Subjective: Patient reports she is feeling ok, denies cough, her pain is controlled at rest, but has pain when pressure placed on her limb. REVIEW OF SYSTEMS: The following is a completed review of systems and has been reviewed. Review of systems otherwise unremarkable. PAIN: Patient self reports left limb pain EYES: no recent vision changes EARS, NOSE, & THROAT: denies dysphagia, rhinorrhea, or recent hearing loss CARDIOVASCULAR: denies chest pain/palpitations PULMONARY: + dyspnea on exertion, cough resolved GASTROINTESTINAL:denies diarrhea, +constipation GENITOURINARY: denies dysuria, +incontinence MUSCULOSKELETAL: left AKA NEUROLOGICAL: no tremor or seizure activity HEMATOLOGICAL: +anemia SKIN: left AKA incision PSYCHIATRIC: Unremarkable All other review of systems found to be negative. PHYSICAL EXAMINATION: VITAL SIGNS: Please see below. GENERAL: Pleasant and cooperative. No acute distress. HEENT: PERRL. Extraocular movements intact. Clear conjunctiva CARDIOVASCULAR: Regular rate and rhythm. No murmurs, rubs, or gallops LUNGS: CTA, No wheezes. no rhonchi ABDOMEN: Soft, nontender, nondistended. Positive bowel sounds. Normal active bowel sounds NEUROLOGICAL: Alert and oriented times three. Cranial nerves II through XII grossly intact. Sensation grossly intact EXTREMITIES: 5-\5 strength bilateral upper extremities. 5\5 strength right lower extremity. >3/5 left hip flexors and abduction +RLE edema : Lee- draining clear urine SKIN: left residual limb incision without induration, mildly erythematous, c/d/i -sacrum mild erythema, no pressure ulcers ASSESSMENT:78-year-old F with past medical history of PVD who presents status post left AKA PLAN: 1. Rehab: PT, OT, stretch left limb to prevent hip flexor or abduction contractures, teach limb care, strengthen RLE, improve trunk control, upper body strengthening, and shoulder protection techniques for wheelchair propulsion 2. Neuro: avoid deliriogenic medications given recent episode of altered mental status 3. CArdio: [facility] HTN- c/u BP meds, [facility] HLD c/u statin- medicine consulted to help manage -c/u lasix given crackles on exam and RLE edema, monitor [employer]- will lower from 40mg daily to 20mg to daily to avoid dizziness/orthstatics 4. Vasc: pmh PVD s/p Left AKA- will consult vascular, currently off Plavix given hx of GI bleed, switched from IV Zosyn to po Augmentin per medicine 5. Resp: chronic smoker with COPD, currently on 02, will attempt to wean, will start Duonebs and guaifenesin for productive cough- c/u augmentin -will need outpatient f/u for spiculated mass seen on recent chest imaging 6. Endo: pmh DM, c/u oral home meds will add ISS and monitor-stable 7. GI: pmh upper and lower GI bleed, c/u protonix and sucralfate 8. DVT ppx: Teds to RLE and heparin BID 9. : monitor PVRs, s/p lee 10. Skin: per vascular recs keep LLE limb unwrapped-recs appreciated, will c/u silver otpifoam, Zinc oxide to sacrum BID 11. Dispo: TBD 12. Pain: Tylenol standing and oxycodone prn 13. Heme: anemia of chronic disease and hx of GI bleed- c/u Iron and monitor, will transfuse if <8 14. Hypokalemia- currently on K supplements, however will decrease from 20-->10 meq to avoid hyperkalemia and check BMP tomorrow 12. DNR Allergies Coded Allergies: No Known Allergies (Verified , 02/24/06) Vital Signs Vital Signs Date Time Temp Pulse Resp B/P (MAP) Pulse Ox O2 Delivery O2 Flow Rate FiO2 09/15/18 05:49 98.0 89 18 141/60 (87) 99 09/11/18 06:26 1.0 Laboratory Data CBC/BMP Laboratory Tests 09/15/18 06:20 Red Blood Count 4.31, Mean Corpuscular Volume 89.3, Mean Corpuscular Hemoglobin 27.6, Mean Corpuscular Hemoglobin Concent 30.9 L, Red Cell Distribution Width 18.4 H, Neutrophils (%) (Auto) 65.9, Lymphocytes (%) (Auto) 15.5 L, Monocytes (%) (Auto) 10.8 H, Eosinophils (%) (Auto) 2.6, Basophils (%) (Auto) 1.1 H, Neutrophils # (Auto) 4.0, Lymphocytes # (Auto) 1.0 L, Monocytes # (Auto) 0.7, Eosinophils # (Auto) 0.2, Basophils # (Auto) 0.1, Calcium Level 8.4 L Labs 24H Laboratory Tests 2 09/14/18 12:17: Bedside Glucose (Misc Panel) 190H 09/14/18 17:16: Bedside Glucose (Misc Panel) 79L 09/14/18 20:07: Bedside Glucose (Misc Panel) 231H 09/15/18 06:20: Immature Granulocyte % (Auto) 4.1H, White Blood Count 6.1, Red Blood Count 4.31, Hemoglobin 11.9L, Hematocrit 38.5, Mean Corpuscular Volume 89.3, Mean Corpuscular Hemoglobin 27.6, Mean Corpuscular Hemoglobin Concent 30.9L, Red Cell Distribution Width 18.4H, Platelet Count 537H, Neutrophils (%) (Auto) 65.9, Lymphocytes (%) (Auto) 15.5L, Monocytes (%) (Auto) 10.8H, Eosinophils (%) (Auto) 2.6, Basophils (%) (Auto) 1.1H, Neutrophils # (Auto) 4.0, Lymphocytes # (Auto) 1.0L, Monocytes # (Auto) 0.7, Eosinophils # (Auto) 0.2, Basophils # (Auto) 0.1, Nucleated Red Blood Cells % (auto) 0.0, Anion Gap 6L, Glomerular Filtration Rate > 60.0, Blood Urea Nitrogen 15, Creatinine 0.52L, Sodium Level 139, Potassium Level 4.7, Chloride Level 106, Carbon Dioxide Level 27, Calcium Level 8.4L 09/15/18 06:28: Bedside Glucose (Misc Panel) 94 Current Medications Current Medications Current Medications Acetaminophen (Tylenol Tab) 1,000 mg TID PO Last administered on 09/15/18at 08:29; Start 09/09/18 at 21:00 Albuterol/ Ipratropium (Duoneb (Ipr 0.5mg/Alb 2.5mg)) 3 ml RTID NEB Last administered on 09/11/18at 18:13; Start 09/09/18 at 20:00 Amlodipine Besylate (Norvasc) 5 mg DAILY PO Last administered on 09/10/18at 09:00; Start 09/10/18 at 09:00; Stop 09/11/18 at 08:15; Status DC Amoxicillin/ Clavulanate Potassium (Augmentin) 875 mg BID PO Last administered on 09/14/18 20:29; Start 09/10/18 at 21:00; Stop 09/14/18 at 21:00; Status DC Atorvastatin Calcium (Lipitor) 40 mg QHS PO Last administered on 09/14/18at 20:29; Start 09/09/18 at 21:00 Bisacodyl (Dulcolax Suppository) 10 mg DAILYPRN PRN [place] CONSTIPATION; Start 09/09/18 at 16:45 Dextrose (Dextrose 50%) 25 ml ASDIRECTED PRN IV SEE LABEL COMMENTS; Start 09/09/18 at 16:45 Docusate Sodium (Colace) 100 mg BID PO Last administered on 09/15/18 08:27; Start 09/09/18 at 21:00 Ferrous Gluconate (Fergon) 324 mg BID PO Last administered on 09/15/18 08:27; Start 09/09/18 at 21:00 Furosemide (Lasix) 20 mg DAILY PO Last administered on 09/15/18 08:28; Start 09/11/18 at 09:00 Furosemide (Lasix) 40 mg DAILY PO Last administered on 09/10/18at 09:01; Start 09/10/18 at 09:00; Stop 09/10/18 at 12:34; Status DC Glimepiride (Amaryl) 2 mg QHS PO Last administered on 09/14/18at 20:30; Start 09/09/18 at 21:00 Glucagon (Glucagon) 1 mg ASDIRECTED PRN SC SEE LABEL COMMENTS; Start 09/09/18 at 16:45 Glucose (Glucose) 16 GM ASDIRECTED PRN PO SEE LABEL COMMENTS; Start 09/09/18 at 16:45 Guaifenesin (Robitussin Tab) 400 mg TID PO Last administered on 09/15/18 08:28; Start 09/09/18 at 21:00 Heparin Sodium (Heparin (Flush)) 200 units ASDIRECTED PRN IV SEE LABEL COMMENTS Last administered on 09/10/18at 00:37; Start 09/09/18 at 18:15; Stop 09/15/18 at 03:45; Status DC Heparin Sodium (Heparin (Flush)) 200 units ASDIRECTED PRN IV SEE LABEL COMMENTS Last administered on 09/10/18 16:49; Start 09/10/18 at 10:30; Stop 09/14/18 at 17:26; Status DC Heparin Sodium (Heparin (Flush)) 200 units PICC IV Last administered on 09/10/18 05:11; Start 09/10/18 at 06:00; Stop 09/10/18 at 11:25; Status DC Heparin Sodium (Heparin (Flush)) 200 units PICC IV Last administered on 09/14/18 05:29; Start 09/10/18 at 18:00; Stop 09/14/18 at 17:26; Status DC Heparin Sodium (Porcine) (Heparin) 5,000 units Q12H SC Last administered on 09/15/18 08:28; Start 09/09/18 at 21:00 Insulin Human Lispro (HumaLOG INSULIN) SEE PROTOCOL TABLE AC SC Last administered on 09/14/18at 12:26; Start 09/09/18 at 17:30 Insulin Human Lispro (HumaLOG INSULIN) SEE PROTOCOL TABLE QHS SC Last administered on 09/12/18at 21:40; Start 09/09/18 at 21:00 Magnesium Hydroxide (Milk Of Magnesia) 30 ml DAILYPRN PRN PO CONSTIPATION; Start 09/09/18 at 16:45 Metformin HCl (Glucophage Xr) 1,000 mg BID PO Last administered on 09/09/18 20:48; Start 09/09/18 at 21:00; Stop 09/10/18 at 09:33; Status DC Ondansetron HCl (Zofran) 4 mg Q6HP PRN PO NAUSEA; Start 09/09/18 at 16:45 Oxycodone HCl (Roxicodone, Oxyir) 5 mg Q4HP PRN PO PAIN Last administered on 09/15/18 03:50; Start 09/09/18 at 16:45 Pantoprazole Sodium (Protonix) 40 mg DAILY PO Last administered on 09/15/18at 08:28; Start 09/10/18 at 09:00 Piperacillin Sod/ Tazobactam Sod 3.375 gm/Dextrose 50 ml @ 50 mls/hr Q6H IV Last administered on 09/10/18at 10:27; Start 09/09/18 at 17:00; Stop 09/10/18 at 16:41; Status DC Potassium Chloride (Micro-K Extencaps) 10 meq DAILY PO Last administered on 09/15/18 08:28; Start 09/15/18 at 09:00 Potassium Chloride (Micro-K Extencaps) 20 meq DAILY PO Last administered on 09/14/18 08:32; Start 09/10/18 at 09:00; Stop 09/14/18 at 10:26; Status DC Senna (Senokot) 1 tab QHS PO Last administered on 09/14/18 20:29; Start 09/09/18 at 21:00 Sodium Chloride (Saline Lock Flush) 10 ml ASDIRECTED PRN IV SEE LABEL COMMENTS Last administered on 09/10/18 00:37; Start 09/09/18 at 18:15; Stop 09/15/18 at 03:45; Status DC Sodium Chloride (Saline Lock Flush) 10 ml ASDIRECTED PRN IV SEE LABEL COMMENTS Last administered on 09/10/18at 16:49; Start 09/10/18 at 10:30; Stop 09/14/18 at 17:26; Status DC Sodium Chloride (Saline Lock Flush) 10 ml PICC IV Last administered on 09/10/18 05:11; Start 09/10/18 at 06:00; Stop 09/10/18 at 11:25; Status DC Sodium Chloride (Saline Lock Flush) 10 ml PICC IV Last administered on 09/14/18 05:30; Start 09/10/18 at 18:00; Stop 09/14/18 at 17:26; Status DC Sucralfate (Carafate) 1 gm ACHS PO Last administered on 09/15/18 08:28; Start 09/09/18 at 17:30 Tiotropium [place] (Spiriva Handihaler) 1 inhalation DAILY@08 INH Last administered on 09/13/18 11:34; Start 09/10/18 at 08:00 Zinc Oxide (Boudreauxs Butt Paste) sacrum TID TOP Last administered on 09/15/18 08:29; Start 09/09/18 at 21:00 IZZY FLORES MD Sep 15, 2018 10:07
[2018-09-15 14:00] VITALS: BP 121/57
[2018-09-15 20:00] VITALS: BP 130/59
[2018-09-15] MEDS: ATORVASTATIN 20 MG TAB PO SCH (20:44)
[2018-09-15] MEDS: GLIMEPIRIDE 2 MG TAB PO SCH (20:46)
[2018-09-15] MEDS: SENNA 8.6 MG TAB (SENOKOT) PO SCH (20:46)
[2018-09-15] MEDS: traZODone 25MG PER 1/2 TABLET PO SCH (21:54)
[2018-09-16] MEDS: oxyCODONE 5MG TAB PO PRN ×3 (02:18→17:42)
[2018-09-16 06:00] VITALS: BP 127/59
[2018-09-16 07:30] LABS: BLOOD UREA NITROGEN 18 MG/DL (7-18); CALCIUM LEVEL 8.4 MG/DL (8.8-10.2); CARBON DIOXIDE LEVEL 27 MEQ/L (21-32); CHLORIDE LEVEL 107 MEQ/L (98-107); CREATININE FOR GFR 0.54 MG/DL (0.55-1.30); GLOMERULAR FILTRATION RATE > 60.0 (>39); GLUCOSE, FASTING 95 MG/DL (70-100); POTASSIUM SERUM 4.6 MEQ/L (3.5-5.1); SODIUM LEVEL 140 MEQ/L (136-145)
[2018-09-16] MEDS: HumaLOG INSULIN (NovoLOG) PER UNIT SC SCH ×4 (07:30→21:00)
[2018-09-16] MEDS: IPRATROPIUM 0.5MG/ALBUTEROL 2.5MG INH SOL UD 3ML (DUONEB)(J7620) NEB SCH ×3 (07:50→20:00)
[2018-09-16] MEDS: TIOTROPIUM INHALER/CAPSULE (SPIRIVA) INH SCH (07:50)
[2018-09-16] MEDS: DOCUSATE SODIUM 100 MG CAP PO SCH ×2 (08:39→21:11)
[2018-09-16] MEDS: FERROUS GLUCONATE 324 MG TAB PO SCH ×2 (08:39→21:12)
[2018-09-16] MEDS: POTASSIUM CHLORIDE 10 MEQ SR TABLET PO SCH (08:39)
[2018-09-16] MEDS: guaiFENesin 200 MG TAB PO SCH ×3 (08:39→21:10)
[2018-09-16] MEDS: SUCRALFATE 1 GM TAB PO SCH ×4 (08:39→21:11)
[2018-09-16] MEDS: PANTOPRAZOLE 40MG TAB (PROTONIX) PO SCH (08:39)
[2018-09-16] MEDS: FUROSEMIDE 20 MG TAB PO SCH (08:39)
[2018-09-16] MEDS: HEPARIN SOD (PORCINE) 5000 UNITS/ML VIAL SC SCH ×2 (08:40→21:10)
[2018-09-16] MEDS: ACETAMINOPHEN 500 MG TAB PO SCH ×3 (08:41→21:11)
[2018-09-16] MEDS: BOUDREAUX'S BUTT PASTE TOP SCH ×3 (08:41→21:12)
[2018-09-16 14:00] VITALS: BP 130/60
--- NOTE | 2018-09-16 16:53 | IPNPDOC ---
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 She is open to trying an antidepressant. REVIEW OF SYSTEMS: The following is a completed review of systems and has been reviewed. Review of systems otherwise unremarkable. PAIN: Patient self reports left limb pain EYES: no recent vision changes EARS, NOSE, & THROAT: denies dysphagia, rhinorrhea, or recent hearing loss CARDIOVASCULAR: denies chest pain/palpitations PULMONARY: + dyspnea on exertion, cough resolved GASTROINTESTINAL:denies diarrhea, +constipation GENITOURINARY: denies dysuria, +incontinence MUSCULOSKELETAL: left AKA NEUROLOGICAL: no tremor or seizure activity HEMATOLOGICAL: +anemia SKIN: left AKA incision PSYCHIATRIC: Unremarkable All other review of systems found to be negative. PHYSICAL EXAMINATION: VITAL SIGNS: Please see below. GENERAL: Pleasant and cooperative. No acute distress. HEENT: PERRL. Extraocular movements intact. Clear conjunctiva CARDIOVASCULAR: Regular rate and rhythm. No murmurs, rubs, or gallops LUNGS: CTA, No wheezes. no rhonchi ABDOMEN: Soft, nontender, nondistended. Positive bowel sounds. Normal active bowel sounds NEUROLOGICAL: Alert and oriented times three. Cranial nerves II through XII grossly intact. Sensation grossly intact EXTREMITIES: 5-\5 strength bilateral upper extremities. 5\5 strength right lower extremity. >3/5 left hip flexors and abduction +RLE edema : Day- draining clear urine SKIN: left residual limb incision without induration, mildly erythematous, c/d/i -sacrum mild erythema, no pressure ulcers ASSESSMENT:78-year-old F with past medical history of PVD who presents status post left AKA PLAN: 1. Rehab: PT, OT, stretch left limb to prevent hip flexor or abduction contractures, teach limb care, strengthen RLE, improve trunk control, upper body strengthening, and shoulder protection techniques for wheelchair propulsion 2. Neuro: avoid deliriogenic medications given recent episode of altered mental status 3. CArdio: [facility] HTN- c/u BP meds, pmh HLD c/u statin- medicine consulted to help manage -c/u lasix given crackles on exam and RLE edema, monitor [employer]- will lower from 40mg daily to 20mg to daily to avoid dizziness/orthstatics 4. Vasc: pmh PVD s/p Left AKA- will consult vascular, currently off Plavix given hx of GI bleed, switched from IV Zosyn to po Augmentin per medicine 5. Resp: chronic smoker with COPD, currently on 02, will attempt to wean, will start Duonebs and guaifenesin for productive cough- c/u augmentin -will need outpatient f/u for spiculated mass seen on recent chest imaging 6. Endo: pmh DM, c/u oral home meds will add ISS and monitor-stable 7. GI: pmh upper and lower GI bleed, c/u protonix and sucralfate 8. DVT ppx: Teds to RLE and heparin BID 9. : monitor PVRs,Day removed 09/14/18 10. Skin: per vascular recs keep LLE limb unwrapped-recs appreciated, will c/u silver otpifoam, Zinc oxide to sacrum BID 11. Dispo: TBD 12. Pain: Tylenol standing and oxycodone prn 13. Heme: anemia of chronic disease and hx of GI bleed- c/u Iron and monitor, will transfuse if <8 14. Hypokalemia- 4.6 today c/u 10 meq to and recheck BMP tomorrow, will watch for hyperkalemia 15. Psych: [place] Remeron for depression and sleep, c/u trazodone 12. DNR Allergies Coded Allergies: No Known Allergies (Verified , 02/24/06) Vital Signs Vital Signs Date Time Temp Pulse Resp B/P (MAP) Pulse Ox O2 Delivery O2 Flow Rate FiO2 09/16/18 14:00 97.8 95 19 130/60 (83) 97 09/11/18 06:26 1.0 Laboratory Data CBC/BMP Laboratory Tests 09/16/18 06:31 Calcium Level 8.4 L Labs 24H Laboratory Tests 2 09/15/18 16:53: Bedside Glucose (Misc Panel) 109 09/15/18 20:09: Bedside Glucose (Misc Panel) 272H 09/16/18 06:29: Bedside Glucose (Misc Panel) 92 09/16/18 06:31: Anion Gap 6L, Glomerular Filtration Rate > 60.0, Blood Urea Nitrogen 18, Creatinine 0.54L, Sodium Level 140, Potassium Level 4.6, Chloride Level 107, Carbon Dioxide Level 27, Calcium Level 8.4L 09/16/18 11:23: Bedside Glucose (Misc Panel) 213H Current Medications Current Medications Current Medications Acetaminophen (Tylenol Tab) 1,000 mg TID PO Last administered on 09/16/18 08:41; Start 09/09/18 at 21:00 Albuterol/ Ipratropium (Duoneb (Ipr 0.5mg/Alb 2.5mg)) 3 ml RTID NEB Last administered on 09/16/18 07:50; Start 09/09/18 at 20:00 Amlodipine Besylate (Norvasc) 5 mg DAILY PO Last administered on 09/10/18 09:00; Start 09/10/18 at 09:00; Stop 09/11/18 at 08:15; Status DC Amoxicillin/ Clavulanate Potassium (Augmentin) 875 mg BID PO Last administered on 09/14/18 20:29; Start 09/10/18 at 21:00; Stop 09/14/18 at 21:00; Status DC Atorvastatin Calcium (Lipitor) 40 mg QHS PO Last administered on 09/15/18 20:44; Start 09/09/18 at 21:00 Bisacodyl (Dulcolax Suppository) 10 mg DAILYPRN PRN [place] CONSTIPATION; Start 09/09/18 at 16:45 Dextrose (Dextrose 50%) 25 ml ASDIRECTED PRN IV SEE LABEL COMMENTS; Start 09/09/18 at 16:45 Docusate Sodium (Colace) 100 mg BID PO Last administered on 09/16/18at 08:39; Start 09/09/18 at 21:00 Ferrous Gluconate (Fergon) 324 mg BID PO Last administered on 09/16/18 08:39; Start 09/09/18 at 21:00 Furosemide (Lasix) 20 mg DAILY PO Last administered on 09/16/18 08:39; Start 09/11/18 at 09:00 Furosemide (Lasix) 40 mg DAILY PO Last administered on 09/10/18 09:01; Start 09/10/18 at 09:00; Stop 09/10/18 at 12:34; Status DC Glimepiride (Amaryl) 2 mg QHS PO Last administered on 09/15/18at 20:46; Start 09/09/18 at 21:00 Glucagon (Glucagon) 1 mg ASDIRECTED PRN SC SEE LABEL COMMENTS; Start 09/09/18 at 16:45 Glucose (Glucose) 16 GM ASDIRECTED PRN PO SEE LABEL COMMENTS; Start 09/09/18 at 16:45 Guaifenesin (Robitussin Tab) 400 mg TID PO Last administered on 09/16/18 08:39; Start 09/09/18 at 21:00 Heparin Sodium (Heparin (Flush)) 200 units ASDIRECTED PRN IV SEE LABEL COMMENTS Last administered on 09/10/18at 00:37; Start 09/09/18 at 18:15; Stop 09/15/18 at 03:45; Status DC Heparin Sodium (Heparin (Flush)) 200 units ASDIRECTED PRN IV SEE LABEL COMMENTS Last administered on 09/10/18at 16:49; Start 09/10/18 at 10:30; Stop 09/14/18 at 17:26; Status DC Heparin Sodium (Heparin (Flush)) 200 units PICC IV Last administered on 09/10/18at 05:11; Start 09/10/18 at 06:00; Stop 09/10/18 at 11:25; Status DC Heparin Sodium (Heparin (Flush)) 200 units PICC IV Last administered on 09/14/18at 05:29; Start 09/10/18 at 18:00; Stop 09/14/18 at 17:26; Status DC Heparin Sodium (Porcine) (Heparin) 5,000 units Q12H SC Last administered on 09/16/18at 08:40; Start 09/09/18 at 21:00 Insulin Human Lispro (HumaLOG INSULIN) SEE PROTOCOL TABLE AC SC Last administered on 09/16/18at 12:23; Start 09/09/18 at 17:30 Insulin Human Lispro (HumaLOG INSULIN) SEE PROTOCOL TABLE QHS SC Last administered on 09/15/18at 20:47; Start 09/09/18 at 21:00 Magnesium Hydroxide (Milk Of Magnesia) 30 ml DAILYPRN PRN [place] CONSTIPATION; Start 09/09/18 at 16:45 Metformin HCl (Glucophage Xr) 1,000 mg BID PO Last administered on 09/09/18at 20:48; Start 09/09/18 at 21:00; Stop 09/10/18 at 09:33; Status DC Mirtazapine (Remeron) 15 mg QPM PO ; Start 09/16/18 at 21:00 Ondansetron HCl (Zofran) 4 mg Q6HP PRN PO NAUSEA; Start 09/09/18 at 16:45 Oxycodone HCl (Roxicodone, Oxyir) 5 mg Q4HP PRN PO PAIN Last administered on 09/15/18 03:50; Start 09/09/18 at 16:45; Stop 09/15/18 at 14:03; Status DC Oxycodone HCl (Roxicodone, Oxyir) 5 mg Q6H PRN PO PAIN Last administered on 09/16/18 08:40; Start 09/15/18 at 14:15 Pantoprazole Sodium (Protonix) 40 mg DAILY PO Last administered on 09/16/18at 08:39; Start 09/10/18 at 09:00 Piperacillin Sod/ Tazobactam Sod 3.375 gm/Dextrose 50 ml @ 50 mls/hr Q6H IV Last administered on 09/10/18 10:27; Start 09/09/18 at 17:00; Stop 09/10/18 at 16:41; Status DC Potassium Chloride (Micro-K Extencaps) 10 meq DAILY PO Last administered on 09/16/18 08:39; Start 09/15/18 at 09:00 Potassium Chloride (Micro-K Extencaps) 20 meq DAILY PO Last administered on 09/14/18at 08:32; Start 09/10/18 at 09:00; Stop 09/14/18 at 10:26; Status DC Senna (Senokot) 1 tab QHS PO Last administered on 09/15/18at 20:46; Start 09/09/18 at 21:00 Sodium Chloride (Saline Lock Flush) 10 ml ASDIRECTED PRN IV SEE LABEL COMMENTS Last administered on 09/10/18at 00:37; Start 09/09/18 at 18:15; Stop 09/15/18 at 03:45; Status DC Sodium Chloride (Saline Lock Flush) 10 ml ASDIRECTED PRN IV SEE LABEL COMMENTS Last administered on 09/10/18at 16:49; Start 09/10/18 at 10:30; Stop 09/14/18 at 17:26; Status DC Sodium Chloride (Saline Lock Flush) 10 ml PICC IV Last administered on 09/10/18at 05:11; Start 09/10/18 at 06:00; Stop 09/10/18 at 11:25; Status DC Sodium Chloride (Saline Lock Flush) 10 ml PICC IV Last administered on at 05:30; Start 09/10/18 at 18:00; Stop 09/14/18 at 17:26; Status DC Sucralfate (Carafate) 1 gm ACHS PO Last administered on 09/16/18at 12:23; Start 09/09/18 at 17:30 Tiotropium [place] (Spiriva Handihaler) 1 inhalation DAILY@08 INH Last administered on 09/16/18at 07:50; Start 09/10/18 at 08:00 Trazodone HCl (Desyrel) 25 mg QHS PO Last administered on 09/15/18at 21:54; Start 09/15/18 at 21:00 Zinc Oxide (Boudreauxs Butt Paste) sacrum TID TOP Last administered on 09/16/18 08:41; Start 09/09/18 at 21:00 IZZY FLORES MD Sep 16, 2018 16:53
[2018-09-16 20:00] VITALS: BP 125/56
[2018-09-16] MEDS: ATORVASTATIN 20 MG TAB PO SCH (21:10)
[2018-09-16] MEDS: traZODone 25MG PER 1/2 TABLET PO SCH (21:10)
[2018-09-16] MEDS: MIRTAZAPINE 15 MG TAB PO SCH (21:11)
[2018-09-16] MEDS: SENNA 8.6 MG TAB (SENOKOT) PO SCH (21:11)
[2018-09-16] MEDS: GLIMEPIRIDE 2 MG TAB PO SCH (21:12)
[2018-09-17] MEDS: oxyCODONE 5MG TAB PO PRN ×2 (04:03→22:47)
[2018-09-17 06:00] VITALS: BP 145/67
[2018-09-17] MEDS: TIOTROPIUM INHALER/CAPSULE (SPIRIVA) INH SCH (07:19)
[2018-09-17] MEDS: IPRATROPIUM 0.5MG/ALBUTEROL 2.5MG INH SOL UD 3ML (DUONEB)(J7620) NEB SCH ×3 (07:19→20:00)
[2018-09-17] MEDS: HumaLOG INSULIN (NovoLOG) PER UNIT SC SCH ×4 (07:30→21:00)
[2018-09-17] MEDS: guaiFENesin 200 MG TAB PO SCH ×3 (08:27→21:39)
[2018-09-17] MEDS: SUCRALFATE 1 GM TAB PO SCH ×4 (08:27→21:39)
[2018-09-17] MEDS: PANTOPRAZOLE 40MG TAB (PROTONIX) PO SCH (08:27)
[2018-09-17] MEDS: POTASSIUM CHLORIDE 10 MEQ SR TABLET PO SCH (08:27)
[2018-09-17] MEDS: FUROSEMIDE 20 MG TAB PO SCH (08:27)
[2018-09-17] MEDS: DOCUSATE SODIUM 100 MG CAP PO SCH ×2 (08:27→21:39)
[2018-09-17] MEDS: FERROUS GLUCONATE 324 MG TAB PO SCH ×2 (08:27→21:39)
[2018-09-17] MEDS: ACETAMINOPHEN 500 MG TAB PO SCH ×3 (08:28→21:40)
[2018-09-17] MEDS: HEPARIN SOD (PORCINE) 5000 UNITS/ML VIAL SC SCH ×2 (08:28→21:39)
[2018-09-17] MEDS: BOUDREAUX'S BUTT PASTE TOP SCH ×3 (08:28→21:40)
--- NOTE | 2018-09-17 10:10 | IPNPDOC ---
PM&R Progress Note DATE OF SERVICE: Sep 17, 2018 [employer] Progress Note Subjective: Patient reports her mood and sleep are better. REVIEW OF SYSTEMS: The following is a completed review of systems and has been reviewed. Review of systems otherwise unremarkable. PAIN: Patient self reports left limb pain EYES: no recent vision changes EARS, NOSE, & THROAT: denies dysphagia, rhinorrhea, or recent hearing loss CARDIOVASCULAR: denies chest pain/palpitations PULMONARY: + dyspnea on exertion, cough resolved GASTROINTESTINAL:denies diarrhea, +constipation GENITOURINARY: denies dysuria, +incontinence MUSCULOSKELETAL: left AKA NEUROLOGICAL: no tremor or seizure activity HEMATOLOGICAL: +anemia SKIN: left AKA incision PSYCHIATRIC: Unremarkable All other review of systems found to be negative. PHYSICAL EXAMINATION: VITAL SIGNS: Please see below. GENERAL: Pleasant and cooperative. No acute distress. HEENT: PERRL. Extraocular movements intact. Clear conjunctiva CARDIOVASCULAR: Regular rate and rhythm. No murmurs, rubs, or gallops LUNGS: CTA, No wheezes. no rhonchi ABDOMEN: Soft, nontender, nondistended. Positive bowel sounds. Normal active bowel sounds NEUROLOGICAL: Alert and oriented times three. Cranial nerves II through XII grossly intact. Sensation grossly intact EXTREMITIES: 5-\5 strength bilateral upper extremities. 5\5 strength right lower extremity. >3/5 left hip flexors and abduction +RLE edema : Day- draining clear urine SKIN: left residual limb incision without induration, mildly erythematous, c/d/i -sacrum mild erythema, no pressure ulcers ASSESSMENT:78-year-old F with past medical history of PVD who presents status post left AKA PLAN: 1. Rehab: PT, OT, stretch left limb to prevent hip flexor or abduction contractures, teach limb care, strengthen RLE, improve trunk control, upper body strengthening, and shoulder protection techniques for wheelchair propulsion 2. Neuro: avoid deliriogenic medications given recent episode of altered mental status 3. CArdio: pmh HTN- c/u BP meds, pmh HLD c/u statin- medicine consulted to help manage -c/u lasix 4. Vasc: pmh PVD s/p Left AKA- will consult vascular, currently off Plavix given hx of GI bleed, switched from IV Zosyn to po Augmentin per medicine 5. Resp: chronic smoker with COPD, currently on , will attempt to wean, will start Duonebs and guaifenesin for productive cough- c/u augmentin -will need outpatient f/u for spiculated mass seen on recent chest imaging 6. Endo: pmh DM, c/u oral home meds and SS and monitor-stable 7. GI: pmh upper and lower GI bleed, c/u protonix and sucralfate 8. DVT ppx: Teds to RLE and heparin BID 9. : monitor PVRs,Day removed 09/14/18 10. Skin: per vascular recs keep LLE limb unwrapped-recs appreciated, will c/u silver otpifoam, Zinc oxide to sacrum BID 11. Dispo: TBD 12. Pain: Tylenol standing and oxycodone prn 13. Heme: anemia of chronic disease and hx of GI bleed- c/u Iron and monitor, will transfuse if <8 14. Hypokalemia- resolvedc/u to monitor BMP 15. Psych: c/u Remeron for depression and sleep, c/u trazodone 16. DNR 17. Dispo: TBD Allergies Coded Allergies: No Known Allergies (Verified , 02/24/06) Vital Signs Vital Signs Date Time Temp Pulse Resp B/P (MAP) Pulse Ox O2 Delivery O2 Flow Rate FiO2 09/17/18 06:00 98.0 82 18 145/67 (93) 96 09/11/18 06:26 1.0 Laboratory Data Labs 24H Laboratory Tests 2 09/16/18 11:23: Bedside Glucose (Misc Panel) 213H 09/16/18 17:04: Bedside Glucose (Misc Panel) 160H 09/16/18 20:39: Bedside Glucose (Misc Panel) 173H 09/17/18 06:24: Bedside Glucose (Misc Panel) 88 Current Medications Current Medications Current Medications Acetaminophen (Tylenol Tab) 1,000 mg TID PO Last administered on 09/17/18at 08:28; Start 09/09/18 at 21:00 Albuterol/ Ipratropium (Duoneb (Ipr 0.5mg/Alb 2.5mg)) 3 ml RTID NEB Last administered on 09/16/18at 07:50; Start 09/09/18 at 20:00 Amlodipine Besylate (Norvasc) 5 mg DAILY PO Last administered on 09/10/18 09:00; Start 09/10/18 at 09:00; Stop 09/11/18 at 08:15; Status DC Amoxicillin/ Clavulanate Potassium (Augmentin) 875 mg BID PO Last administered on 09/14/18 20:29; Start 09/10/18 at 21:00; Stop 09/14/18 at 21:00; Status DC Atorvastatin Calcium (Lipitor) 40 mg QHS PO Last administered on 09/16/18at 21:10; Start 09/09/18 at 21:00 Bisacodyl (Dulcolax Suppository) 10 mg DAILYPRN PRN CO CONSTIPATION; Start 09/09/18 at 16:45 Dextrose (Dextrose 50%) 25 ml ASDIRECTED PRN IV SEE LABEL COMMENTS; Start 09/09/18 at 16:45 Docusate Sodium (Colace) 100 mg BID PO Last administered on 09/17/18 08:27; Start 09/09/18 at 21:00 Ferrous Gluconate (Fergon) 324 mg BID PO Last administered on 09/17/18 08:27; Start 09/09/18 at 21:00 Furosemide (Lasix) 20 mg DAILY PO Last administered on 09/17/18 08:27; Start 09/11/18 at 09:00 Furosemide (Lasix) 40 mg DAILY PO Last administered on 09/10/18at 09:01; Start 09/10/18 at 09:00; Stop 09/10/18 at 12:34; Status DC Glimepiride (Amaryl) 2 mg QHS PO Last administered on 09/16/18at 21:12; Start 09/09/18 at 21:00 Glucagon (Glucagon) 1 mg ASDIRECTED PRN SC SEE LABEL COMMENTS; Start 09/09/18 at 16:45 Glucose (Glucose) 16 GM ASDIRECTED PRN PO SEE LABEL COMMENTS; Start 09/09/18 at 16:45 Guaifenesin (Robitussin Tab) 400 mg TID PO Last administered on 09/17/18 08:27; Start 09/09/18 at 21:00 Heparin Sodium (Heparin (Flush)) 200 units ASDIRECTED PRN IV SEE LABEL COMMENTS Last administered on 09/10/18at 00:37; Start 09/09/18 at 18:15; Stop 09/15/18 at 03:45; Status DC Heparin Sodium (Heparin (Flush)) 200 units ASDIRECTED PRN IV SEE LABEL COMMENTS Last administered on 09/10/18at 16:49; Start 09/10/18 at 10:30; Stop 09/14/18 at 17:26; Status DC Heparin Sodium (Heparin (Flush)) 200 units PICC IV Last administered on 09/10/18at 05:11; Start 09/10/18 at 06:00; Stop 09/10/18 at 11:25; Status DC Heparin Sodium (Heparin (Flush)) 200 units PICC IV Last administered on 09/14/18at 05:29; Start 09/10/18 at 18:00; Stop 09/14/18 at 17:26; Status DC Heparin Sodium (Porcine) (Heparin) 5,000 units Q12H SC Last administered on 09/17/18at 08:28; Start 09/09/18 at 21:00 Insulin Human Lispro (HumaLOG INSULIN) SEE PROTOCOL TABLE AC SC Last administered on 09/16/18at 17:41; Start 09/09/18 at 17:30 Insulin Human Lispro (HumaLOG INSULIN) SEE PROTOCOL TABLE QHS SC Last administered on 09/15/18at 20:47; Start 09/09/18 at 21:00 Magnesium Hydroxide (Milk Of Magnesia) 30 ml DAILYPRN PRN PO CONSTIPATION; Start 09/09/18 at 16:45 Metformin HCl (Glucophage Xr) 1,000 mg BID PO Last administered on 09/09/18at 20:48; Start 09/09/18 at 21:00; Stop 09/10/18 at 09:33; Status DC Mirtazapine (Remeron) 15 mg QPM PO Last administered on 09/16/18at 21:11; Start 09/16/18 at 21:00 Ondansetron HCl (Zofran) 4 mg Q6HP PRN PO NAUSEA; Start 09/09/18 at 16:45 Oxycodone HCl (Roxicodone, Oxyir) 5 mg Q4HP PRN PO PAIN Last administered on 09/15/18 03:50; Start 09/09/18 at 16:45; Stop 09/15/18 at 14:03; Status DC Oxycodone HCl (Roxicodone, Oxyir) 5 mg Q6H PRN PO PAIN Last administered on 09/17/18 04:03; Start 09/15/18 at 14:15 Pantoprazole Sodium (Protonix) 40 mg DAILY PO Last administered on 09/17/18 08:27; Start 09/10/18 at 09:00 Piperacillin Sod/ Tazobactam Sod 3.375 gm/Dextrose 50 ml @ 50 mls/hr Q6H IV Last administered on 09/10/18 10:27; Start 09/09/18 at 17:00; Stop 09/10/18 at 16:41; Status DC Potassium Chloride (Micro-K Extencaps) 10 meq DAILY PO Last administered on 09/17/18 08:27; Start 09/15/18 at 09:00 Potassium Chloride (Micro-K Extencaps) 20 meq DAILY PO Last administered on 09/14/18at 08:32; Start 09/10/18 at 09:00; Stop 09/14/18 at 10:26; Status DC Senna (Senokot) 1 tab QHS PO Last administered on 09/16/18at 21:11; Start 09/09/18 at 21:00 Sodium Chloride (Saline Lock Flush) 10 ml ASDIRECTED PRN IV SEE LABEL COMMENTS Last administered on 09/10/18at 00:37; Start 09/09/18 at 18:15; Stop 09/15/18 at 03:45; Status DC Sodium Chloride (Saline Lock Flush) 10 ml ASDIRECTED PRN IV SEE LABEL COMMENTS Last administered on 09/10/18at 16:49; Start 09/10/18 at 10:30; Stop 09/14/18 at 17:26; Status DC Sodium Chloride (Saline Lock Flush) 10 ml PICC IV Last administered on 09/10/18at 05:11; Start 09/10/18 at 06:00; Stop 09/10/18 at 11:25; Status DC Sodium Chloride (Saline Lock Flush) 10 ml PICC IV Last administered on 09/14/18at 05:30; Start 09/10/18 at 18:00; Stop 09/14/18 at 17:26; Status DC Sucralfate (Carafate) 1 gm ACHS PO Last administered on 09/17/18 08:27; Start 09/09/18 at 17:30 Tiotropium [place] (Spiriva Handihaler) 1 inhalation DAILY@08 INH Last administered on 09/16/18at 07:50; Start 09/10/18 at 08:00 Trazodone HCl (Desyrel) 25 mg QHS PO Last administered on 09/16/18at 21:10; Start 09/15/18 at 21:00 Zinc Oxide (Boudreauxs Butt Paste) sacrum TID TOP Last administered on 09/16/18at 21:12; Start 09/09/18 at 21:00 IZZY FLORES MD Sep 17, 2018 10:10
[2018-09-17 14:00] VITALS: BP 126/58
[2018-09-17 20:00] VITALS: BP 141/67
[2018-09-17] MEDS: ATORVASTATIN 20 MG TAB PO SCH (21:39)
[2018-09-17] MEDS: GLIMEPIRIDE 2 MG TAB PO SCH (21:39)
[2018-09-17] MEDS: MIRTAZAPINE 15 MG TAB PO SCH (21:39)
[2018-09-17] MEDS: SENNA 8.6 MG TAB (SENOKOT) PO SCH (21:39)
[2018-09-17] MEDS: traZODone 25MG PER 1/2 TABLET PO SCH (21:40)
[2018-09-18 06:00] VITALS: BP 153/68
[2018-09-18] MEDS: oxyCODONE 5MG TAB PO PRN (06:15)
[2018-09-18 07:01] LABS: BASO # 0.1 10^3/uL (0.0-0.2); EOS # 0.1 10^3/uL (0.0-0.50); EOS % 1.8 % (0.0-3.0); HEMATOCRIT 35.5 % (36.0-47.0); LYMPH # 0.9 10^3/uL (1.5-4.5); LYMPH % 12.7 % (24.0-44.0); MEAN CORPUSCULAR HEMOGLOBIN 28.1 pg (27.0-33.0); MEAN CORPUSCULAR VOLUME 90.6 fl (80.0-96.0); MONO # 0.7 10^3/uL (0.0-0.8); MONO % 9.9 % (0.0-5.0); NEUTROPHILS # 5.2 10^3/uL (1.8-7.7); NEUTROPHILS % 72.6 % (36.0-66.0); PLATELET COUNT, AUTOMATED 536 10^3/uL (150-450); RED BLOOD COUNT 3.92 10^6/uL (4.00-5.40); WHITE BLOOD COUNT 7.2 10^3/uL (4.0-10.0)
[2018-09-18] MEDS: IPRATROPIUM 0.5MG/ALBUTEROL 2.5MG INH SOL UD 3ML (DUONEB)(J7620) NEB SCH ×4 (07:20→21:17)
[2018-09-18] MEDS: TIOTROPIUM INHALER/CAPSULE (SPIRIVA) INH SCH (07:20)
[2018-09-18 07:28] LABS: BLOOD UREA NITROGEN 17 MG/DL (7-18); CALCIUM LEVEL 8.4 MG/DL (8.8-10.2); CARBON DIOXIDE LEVEL 28 MEQ/L (21-32); CHLORIDE LEVEL 107 MEQ/L (98-107); CREATININE FOR GFR 0.54 MG/DL (0.55-1.30); GLOMERULAR FILTRATION RATE > 60.0 (>39); GLUCOSE, FASTING 95 MG/DL (70-100); POTASSIUM SERUM 3.8 MEQ/L (3.5-5.1); SODIUM LEVEL 140 MEQ/L (136-145)
[2018-09-18] MEDS: HumaLOG INSULIN (NovoLOG) PER UNIT SC SCH (07:30)
[2018-09-18] MEDS: HEPARIN SOD (PORCINE) 5000 UNITS/ML VIAL SC SCH ×2 (08:57→22:23)
[2018-09-18] MEDS: POTASSIUM CHLORIDE 10 MEQ SR TABLET PO SCH (08:57)
[2018-09-18] MEDS: guaiFENesin 200 MG TAB PO SCH ×3 (08:57→22:24)
[2018-09-18] MEDS: FUROSEMIDE 20 MG TAB PO SCH (08:58)
[2018-09-18] MEDS: BOUDREAUX'S BUTT PASTE TOP SCH ×3 (08:58→21:00)
[2018-09-18] MEDS: PANTOPRAZOLE 40MG TAB (PROTONIX) PO SCH (08:58)
[2018-09-18] MEDS: SUCRALFATE 1 GM TAB PO SCH ×4 (08:58→22:25)
[2018-09-18] MEDS: ACETAMINOPHEN 500 MG TAB PO SCH ×3 (08:58→22:24)
[2018-09-18] MEDS: FERROUS GLUCONATE 324 MG TAB PO SCH ×2 (08:58→22:26)
[2018-09-18] MEDS: DOCUSATE SODIUM 100 MG CAP PO SCH ×2 (09:00→22:24)
[2018-09-18 14:00] VITALS: BP 124/58
[2018-09-18 20:00] VITALS: BP 133/65
[2018-09-18] MEDS: MIRTAZAPINE 15 MG TAB PO SCH (22:25)
[2018-09-18] MEDS: GABAPENTIN 300 MG CAP PO SCH (22:25)
[2018-09-18] MEDS: ATORVASTATIN 20 MG TAB PO SCH (22:25)
[2018-09-18] MEDS: GLIMEPIRIDE 2 MG TAB PO SCH (22:25)
[2018-09-18] MEDS: traZODone 25MG PER 1/2 TABLET PO SCH (22:25)
[2018-09-18] MEDS: SENNA 8.6 MG TAB (SENOKOT) PO SCH (22:25)
[2018-09-19 05:33] VITALS: BP 133/63
[2018-09-19] MEDS: TIOTROPIUM INHALER/CAPSULE (SPIRIVA) INH SCH (07:18)
[2018-09-19] MEDS: ACETAMINOPHEN 500 MG TAB PO SCH ×3 (09:11→21:20)
[2018-09-19] MEDS: FERROUS GLUCONATE 324 MG TAB PO SCH ×2 (09:11→21:21)
[2018-09-19] MEDS: SUCRALFATE 1 GM TAB PO SCH ×4 (09:11→21:19)
[2018-09-19] MEDS: PANTOPRAZOLE 40MG TAB (PROTONIX) PO SCH (09:11)
[2018-09-19] MEDS: guaiFENesin 200 MG TAB PO SCH ×3 (09:13→21:20)
[2018-09-19] MEDS: DOCUSATE SODIUM 100 MG CAP PO SCH ×2 (09:13→21:20)
[2018-09-19] MEDS: POTASSIUM CHLORIDE 10 MEQ SR TABLET PO SCH (09:13)
[2018-09-19] MEDS: FUROSEMIDE 20 MG TAB PO SCH (09:13)
[2018-09-19] MEDS: BOUDREAUX'S BUTT PASTE TOP SCH ×3 (09:14→21:22)
[2018-09-19] MEDS: HEPARIN SOD (PORCINE) 5000 UNITS/ML VIAL SC SCH ×2 (09:14→21:21)
--- NOTE | 2018-09-19 10:29 | IPNPDOC ---
Subjective Date Seen The patient was seen on 09/19/18. Subjective Chief Complaint/HPI Patient is comfortable offers no new complaints at the present time General: Denies: ROS Unobtainable, Chills, Night Sweats, Fatigue, Malaise, Normal Appetite, Other Symptoms Constitutional: Denies: Chills, Fever, Malaise, Night Sweats, Weakness, Fatigue, Weight Loss, Lethargy, Other Eyes: Denies: Pain, Vision change, Conjunctivae inflammation, Eyelid inflammation, Redness, Other ENT: Denies: Head Aches, Ear Pain, Dysphagia, Sinus Congestion, Post Nasal Drip, Sore Throat, Epistaxis, Other Symptoms Skin: Denies: Rash, Lesions, Jaundice, Bruising, Itching, Dry, Breakdown, Nail Changes, Other Pulmonary: Denies: Dyspnea, Cough, Pleuritic Chest Pain, Other Symptoms Cardiovascular: Denies: Chest Pain, Palpitations, Orthopnea, Paroxysmal Noc. Dyspnea, Edema, Lt Headedness, Other Symptoms Gastrointestinal: Denies: Nausea, Vomiting, Abdominal Pain, Diarrhea, Constipation, Melena, Hematochezia, Other Symptoms Objective Physical Examination General Exam: Positive: Alert Eye Exam: Positive: PERRLA, Conjunctiva & lids normal ENT Exam: Positive: Atraumatic Neck Exam: Positive: Supple, JVD Chest Exam: Positive: Clear to auscultation, Normal air movement Heart Exam: Positive: Rate Normal, Normal S1, Normal S2 Abdomen Exam: Positive: Normal bowel sounds, Soft Extremity Exam: Positive: Normal pulses Skin Exam: Positive: Nl turgor and temperature Assessment /Plan Problems (1) HTN (hypertension) Status: Chronic Problem Text: Patient is clinically stable No medical intervention at this point Continue present care Continue present medications PT and OT in progress Further, as per physical therapy physician (2) Anemia Status: Chronic (3) COPD (chronic obstructive pulmonary disease) Status: Chronic (4) Type 2 diabetes mellitus Status: Chronic Plan/VTE VTE Prophylaxis Ordered?: Yes VS, I&O, 24H, Fishbone Vital Signs/I&O Vital Signs Date Time Temp Pulse Resp B/P (MAP) Pulse Ox O2 Delivery O2 Flow Rate FiO2 09/19/18 05:33 97.9 99 18 133/63 (86) 94 I&O- Last 24 Hours up to 6 AM 09/19/18 06:00 Intake Total 560 ml Balance 560 ml Laboratory Data 24H LABS Laboratory Tests 2 09/18/18 16:46: Bedside Glucose (Misc Panel) 168H 09/19/18 05:55: Bedside Glucose (Misc Panel) 115H LALO CHACON MD Sep 19, 2018 10:29
[2018-09-19] MEDS: IPRATROPIUM 0.5MG/ALBUTEROL 2.5MG INH SOL UD 3ML (DUONEB)(J7620) NEB SCH ×2 (13:45→20:00)
[2018-09-19 14:00] VITALS: BP 113/55
[2018-09-19 20:00] VITALS: BP 135/61
[2018-09-19] MEDS: SENNA 8.6 MG TAB (SENOKOT) PO SCH (21:20)
[2018-09-19] MEDS: ATORVASTATIN 20 MG TAB PO SCH (21:20)
[2018-09-19] MEDS: GABAPENTIN 300 MG CAP PO SCH (21:20)
[2018-09-19] MEDS: traZODone 25MG PER 1/2 TABLET PO SCH (21:20)
[2018-09-19] MEDS: oxyCODONE 5MG TAB PO PRN (21:21)
[2018-09-19] MEDS: GLIMEPIRIDE 2 MG TAB PO SCH (21:21)
[2018-09-19] MEDS: MIRTAZAPINE 15 MG TAB PO SCH (21:21)
[2018-09-20 06:00] VITALS: BP 131/71
[2018-09-20] MEDS: IPRATROPIUM 0.5MG/ALBUTEROL 2.5MG INH SOL UD 3ML (DUONEB)(J7620) NEB SCH ×3 (07:23→20:00)
[2018-09-20] MEDS: TIOTROPIUM INHALER/CAPSULE (SPIRIVA) INH SCH (07:23)
[2018-09-20] MEDS: FERROUS GLUCONATE 324 MG TAB PO SCH ×2 (07:44→19:28)
[2018-09-20] MEDS: ACETAMINOPHEN 500 MG TAB PO SCH ×3 (07:44→19:28)
[2018-09-20] MEDS: HEPARIN SOD (PORCINE) 5000 UNITS/ML VIAL SC SCH ×2 (07:44→19:28)
[2018-09-20] MEDS: FUROSEMIDE 20 MG TAB PO SCH (07:45)
[2018-09-20] MEDS: DOCUSATE SODIUM 100 MG CAP PO SCH ×2 (07:45→19:29)
[2018-09-20] MEDS: PANTOPRAZOLE 40MG TAB (PROTONIX) PO SCH (07:45)
[2018-09-20] MEDS: SUCRALFATE 1 GM TAB PO SCH ×4 (07:45→19:28)
[2018-09-20] MEDS: guaiFENesin 200 MG TAB PO SCH ×3 (07:45→19:29)
[2018-09-20] MEDS: POTASSIUM CHLORIDE 10 MEQ SR TABLET PO SCH (07:45)
[2018-09-20] MEDS: BOUDREAUX'S BUTT PASTE TOP SCH ×3 (07:47→19:30)
[2018-09-20 14:00] VITALS: BP 120/65
[2018-09-20] MEDS: traZODone 25MG PER 1/2 TABLET PO SCH (19:28)
[2018-09-20] MEDS: GABAPENTIN 300 MG CAP PO SCH (19:29)
[2018-09-20] MEDS: GLIMEPIRIDE 2 MG TAB PO SCH (19:29)
[2018-09-20] MEDS: ATORVASTATIN 20 MG TAB PO SCH (19:29)
[2018-09-20] MEDS: SENNA 8.6 MG TAB (SENOKOT) PO SCH (19:29)
[2018-09-20] MEDS: MIRTAZAPINE 15 MG TAB PO SCH (19:29)
[2018-09-20 20:00] VITALS: BP 127/59
[2018-09-21 06:00] VITALS: BP 138/66
[2018-09-21 06:28] LABS: BASO # 0.1 10^3/uL (0.0-0.2); BASO % 0.7 % (0.0-1.0); EOS # 0.2 10^3/uL (0.0-0.50); EOS % 1.8 % (0.0-3.0); HEMATOCRIT 37.5 % (36.0-47.0); HEMOGLOBIN 11.5 g/dl (12.0-15.5); LYMPH # 1.1 10^3/uL (1.5-4.5); LYMPH % 12.9 % (24.0-44.0); MEAN CORPUSCULAR HEMOGLOBIN 27.8 pg (27.0-33.0); MEAN CORPUSCULAR HGB CONC 30.7 g/dl (32.0-36.5); MEAN CORPUSCULAR VOLUME 90.6 fl (80.0-96.0); MONO # 0.7 10^3/uL (0.0-0.8); MONO % 8.7 % (0.0-5.0); NEUTROPHILS # 6.4 10^3/uL (1.8-7.7); PLATELET COUNT, AUTOMATED 495 10^3/uL (150-450); RED BLOOD COUNT 4.14 10^6/uL (4.00-5.40); WHITE BLOOD COUNT 8.5 10^3/uL (4.0-10.0)
[2018-09-21 07:00] LABS: BLOOD UREA NITROGEN 16 MG/DL (7-18); CALCIUM LEVEL 8.4 MG/DL (8.8-10.2); CARBON DIOXIDE LEVEL 27 MEQ/L (21-32); CHLORIDE LEVEL 108 MEQ/L (98-107); CREATININE FOR GFR 0.61 MG/DL (0.55-1.30); GLOMERULAR FILTRATION RATE > 60.0 (>39); GLUCOSE, FASTING 109 MG/DL (70-100); POTASSIUM SERUM 4.2 MEQ/L (3.5-5.1); SODIUM LEVEL 141 MEQ/L (136-145)
[2018-09-21] MEDS: TIOTROPIUM INHALER/CAPSULE (SPIRIVA) INH SCH (07:05)
[2018-09-21] MEDS: IPRATROPIUM 0.5MG/ALBUTEROL 2.5MG INH SOL UD 3ML (DUONEB)(J7620) NEB SCH ×3 (07:05→20:00)
[2018-09-21] MEDS: SUCRALFATE 1 GM TAB PO SCH ×4 (09:00→21:07)
[2018-09-21] MEDS: guaiFENesin 200 MG TAB PO SCH ×3 (09:00→21:07)
[2018-09-21] MEDS: POTASSIUM CHLORIDE 10 MEQ SR TABLET PO SCH (09:00)
[2018-09-21] MEDS: FUROSEMIDE 20 MG TAB PO SCH (09:00)
[2018-09-21] MEDS: FERROUS GLUCONATE 324 MG TAB PO SCH ×2 (09:00→21:06)
[2018-09-21] MEDS: DOCUSATE SODIUM 100 MG CAP PO SCH ×2 (09:00→21:07)
[2018-09-21] MEDS: PANTOPRAZOLE 40MG TAB (PROTONIX) PO SCH (09:00)
[2018-09-21] MEDS: HEPARIN SOD (PORCINE) 5000 UNITS/ML VIAL SC SCH ×2 (09:01→21:08)
[2018-09-21] MEDS: ACETAMINOPHEN 500 MG TAB PO SCH ×3 (09:01→21:07)
[2018-09-21] MEDS: BOUDREAUX'S BUTT PASTE TOP SCH ×3 (09:02→21:08)
--- NOTE | 2018-09-21 10:26 | IPNPDOC ---
PM&R Progress Note DATE OF SERVICE: Sep 18, 2018 [employer] Progress Note Subjective: Patient reporting phantom limb pain worse at night. REVIEW OF SYSTEMS: The following is a completed review of systems and has been reviewed. Review of systems otherwise unremarkable. PAIN: Patient self reports left limb pain EYES: no recent vision changes EARS, NOSE, & THROAT: denies dysphagia, rhinorrhea, or recent hearing loss CARDIOVASCULAR: denies chest pain/palpitations PULMONARY: + dyspnea on exertion, cough resolved GASTROINTESTINAL:denies diarrhea, +constipation GENITOURINARY: denies dysuria, +incontinence MUSCULOSKELETAL: left AKA NEUROLOGICAL: no tremor or seizure activity HEMATOLOGICAL: +anemia SKIN: left AKA incision PSYCHIATRIC: Unremarkable All other review of systems found to be negative. PHYSICAL EXAMINATION: VITAL SIGNS: Please see below. GENERAL: Pleasant and cooperative. No acute distress. HEENT: PERRL. Extraocular movements intact. Clear conjunctiva CARDIOVASCULAR: Regular rate and rhythm. No murmurs, rubs, or gallops LUNGS: CTA, No wheezes. no rhonchi ABDOMEN: Soft, nontender, nondistended. Positive bowel sounds. Normal active bowel sounds NEUROLOGICAL: Alert and oriented times three. Cranial nerves II through XII grossly intact. Sensation grossly intact EXTREMITIES: 5-\5 strength bilateral upper extremities. 5\5 strength right lower extremity. >3/5 left hip flexors and abduction +RLE edema : Day- draining clear urine SKIN: left residual limb incision without induration, mildly erythematous, c/d/i -sacrum mild erythema, no pressure ulcers ASSESSMENT:78-year-old F with past medical history of PVD who presents status post left AKA PLAN: 1. Rehab: PT, OT, stretch left limb to prevent hip flexor or abduction contractures, teach limb care, strengthen RLE, improve trunk control, upper body strengthening, and shoulder protection techniques for wheelchair propulsion 2. Neuro: avoid deliriogenic medications given recent episode of altered mental status 3. CArdio: pmh HTN- c/u BP meds, pmh HLD c/u statin- medicine consulted to help manage -c/u lasix 4. Vasc: pmh PVD s/p Left AKA- will consult vascular, currently off Plavix given hx of GI bleed, switched from IV Zosyn to po Augmentin per medicine 5. Resp: chronic smoker with COPD, currently on 02, will attempt to wean, will start Duonebs and guaifenesin for productive cough- c/u augmentin -will need outpatient f/u for spiculated mass seen on recent chest imaging 6. Endo: pmh DM, c/u oral home meds and SS and monitor-stable 7. GI: pmh upper and lower GI bleed, c/u protonix and sucralfate 8. DVT ppx: Teds to RLE and heparin BID 9. : monitor PVRs,Day removed 09/14/18 10. Skin: per vascular recs keep LLE limb unwrapped-recs appreciated, will c/u silver otpifoam, Zinc oxide to sacrum BID 11. Dispo: TBD 12. Pain: Tylenol standing and oxycodone prn -will add gabapentin 300mg qHS for evening neuropathic pain 13. Heme: anemia of chronic disease and hx of GI bleed- c/u Iron and monitor, will transfuse if <8 14. Hypokalemia- resolvedc/u to monitor BMP 15. Psych: c/u Remeron for depression and sleep, c/u trazodone 16. DNR 17. Dispo: TBD Allergies Coded Allergies: No Known Allergies (Verified , 02/24/06) Vital Signs Vital Signs Date Time Temp Pulse Resp B/P (MAP) Pulse Ox O2 Delivery O2 Flow Rate FiO2 09/21/18 06:00 97.7 100 18 138/66 (90) 97 Laboratory Data CBC/BMP Laboratory Tests 09/21/18 06:14 Red Blood Count 4.14, Mean Corpuscular Volume 90.6, Mean Corpuscular Hemoglobin 27.8, Mean Corpuscular Hemoglobin Concent 30.7 L, Red Cell Distribution Width 19.0 H, Neutrophils (%) (Auto) 75.0 H, Lymphocytes (%) (Auto) 12.9 L, Monocytes (%) (Auto) 8.7 H, Eosinophils (%) (Auto) 1.8, Basophils (%) (Auto) 0.7, Neutrophils # (Auto) 6.4, Lymphocytes # (Auto) 1.1 L, Monocytes # (Auto) 0.7, Eosinophils # (Auto) 0.2, Basophils # (Auto) 0.1, Calcium Level 8.4 L Labs 24H Laboratory Tests 2 09/20/18 16:36: Bedside Glucose (Misc Panel) 133H 09/21/18 06:14: Immature Granulocyte % (Auto) 0.9, White Blood Count 8.5, Red Blood Count 4.14, Hemoglobin 11.5L, Hematocrit 37.5, Mean Corpuscular Volume 90.6, Mean Corpuscular Hemoglobin 27.8, Mean Corpuscular Hemoglobin Concent 30.7L, Red Cell Distribution Width 19.0H, Platelet Count 495H, Neutrophils (%) (Auto) 75.0H, Lymphocytes (%) (Auto) 12.9L, Monocytes (%) (Auto) 8.7H, Eosinophils (%) (Auto) 1.8, Basophils (%) (Auto) 0.7, Neutrophils # (Auto) 6.4, Lymphocytes # (Auto) 1.1L, Monocytes # (Auto) 0.7, Eosinophils # (Auto) 0.2, Basophils # (Auto) 0.1, Nucleated Red Blood Cells % (auto) 0.0, Anion Gap 6L, Glomerular Filtration Rate > 60.0, Blood Urea Nitrogen 16, Creatinine 0.61, Sodium Level 141, Potassium Level 4.2, Chloride Level 108H, Carbon Dioxide Level 27, Calcium Level 8.4L 09/21/18 06:23: Bedside Glucose (Misc Panel) 120H Current Medications Current Medications Current Medications Acetaminophen (Tylenol Tab) 1,000 mg TID PO Last administered on 09/21/18at 09:01; Start 09/09/18 at 21:00 Albuterol/ Ipratropium (Duoneb (Ipr 0.5mg/Alb 2.5mg)) 3 ml RTID NEB Last administered on 09/16/18at 07:50; Start 09/09/18 at 20:00 Amlodipine Besylate (Norvasc) 5 mg DAILY PO Last administered on 09/10/18at 09:00; Start 09/10/18 at 09:00; Stop 09/11/18 at 08:15; Status DC Amoxicillin/ Clavulanate Potassium (Augmentin) 875 mg BID PO Last administered on 09/14/18at 20:29; Start 09/10/18 at 21:00; Stop 09/14/18 at 21:00; Status DC Atorvastatin Calcium (Lipitor) 40 mg QHS PO Last administered on 09/20/18 19:29; Start 09/09/18 at 21:00 Bisacodyl (Dulcolax Suppository) 10 mg DAILYPRN PRN IN CONSTIPATION; Start 08/22 12/10 at 16:45 Dextrose (Dextrose 50%) 25 ml ASDIRECTED PRN IV SEE LABEL COMMENTS; Start 09/09/18 at 16:45 Docusate Sodium (Colace) 100 mg BID PO Last administered on 09/21/18 09:00; Start 09/09/18 at 21:00 Ferrous Gluconate (Fergon) 324 mg BID PO Last administered on 09/21/18 09:00; Start 09/09/18 at 21:00 Furosemide (Lasix) 20 mg DAILY PO Last administered on 09/21/18 09:00; Start 09/11/18 at 09:00 Furosemide (Lasix) 40 mg DAILY PO Last administered on 09/10/18at 09:01; Start 09/10/18 at 09:00; Stop 09/10/18 at 12:34; Status DC Gabapentin (Neurontin) 200 mg BID PO ; Start 09/21/18 at 21:00; Status UNV Gabapentin (Neurontin) 300 mg QHS PO Last administered on 09/20/18 19:29; Start 09/18/18 at 21:00 Glimepiride (Amaryl) 2 mg QHS PO Last administered on 09/20/18 19:29; Start 09/09/18 at 21:00 Glucagon (Glucagon) 1 mg ASDIRECTED PRN SC SEE LABEL COMMENTS; Start 09/09/18 at 16:45 Glucose (Glucose) 16 GM ASDIRECTED PRN PO SEE LABEL COMMENTS; Start 09/09/18 at 16:45 Guaifenesin (Robitussin Tab) 400 mg TID PO Last administered on 09/21/18at 09:00; Start 09/09/18 at 21:00 Heparin Sodium (Heparin (Flush)) 200 units ASDIRECTED PRN IV SEE LABEL COMMENTS Last administered on 09/10/18at 00:37; Start 09/09/18 at 18:15; Stop 09/15/18 at 03:45; Status DC Heparin Sodium (Heparin (Flush)) 200 units ASDIRECTED PRN IV SEE LABEL COMMENTS Last administered on 09/10/18at 16:49; Start 09/10/18 at 10:30; Stop 09/14/18 at 17:26; Status DC Heparin Sodium (Heparin (Flush)) 200 units PICC IV Last administered on 09/10/18at 05:11; Start 09/10/18 at 06:00; Stop 09/10/18 at 11:25; Status DC Heparin Sodium (Heparin (Flush)) 200 units PICC IV Last administered on 09/14/18at 05:29; Start 09/10/18 at 18:00; Stop 09/14/18 at 17:26; Status DC Heparin Sodium (Porcine) (Heparin) 5,000 units Q12H SC Last administered on 09/21/18at 09:01; Start 09/09/18 at 21:00 Insulin Human Lispro (HumaLOG INSULIN) SEE PROTOCOL TABLE AC SC Last administered on 09/17/18at 13:09; Start 09/09/18 at 17:30; Stop 09/18/18 at 08:03; Status DC Insulin Human Lispro (HumaLOG INSULIN) SEE PROTOCOL TABLE QHS SC Last administered on 09/15/18at 20:47; Start 09/09/18 at 21:00; Stop 09/18/18 at 08:03; Status DC Magnesium Hydroxide (Milk Of Magnesia) 30 ml DAILYPRN PRN PO CONSTIPATION; Start 09/09/18 at 16:45 Metformin HCl (Glucophage Xr) 1,000 mg BID PO Last administered on 09/09/18at 20:48; Start 09/09/18 at 21:00; Stop 09/10/18 at 09:33; Status DC Mirtazapine (Remeron) 15 mg QPM PO Last administered on 09/20/18at 19:29; Start 09/16/18 at 21:00 Ondansetron HCl (Zofran) 4 mg Q6HP PRN PO NAUSEA; Start 09/09/18 at 16:45 Oxycodone HCl (Roxicodone, Oxyir) 5 mg Q4HP PRN PO PAIN Last administered on 09/15/18at 03:50; Start 09/09/18 at 16:45; Stop 09/15/18 at 14:03; Status DC Oxycodone HCl (Roxicodone, Oxyir) 5 mg Q6H PRN PO PAIN Last administered on 09/19/18 21:21; Start 09/15/18 at 14:15; Stop 09/21/18 at 10:25; Status DC Pantoprazole Sodium (Protonix) 40 mg DAILY PO Last administered on 09/21/18 09:00; Start 09/10/18 at 09:00 Piperacillin Sod/ Tazobactam Sod 3.375 gm/Dextrose 50 ml @ 50 mls/hr Q6H IV Last administered on 09/10/18 10:27; Start 09/09/18 at 17:00; Stop 09/10/18 at 16:41; Status DC Potassium Chloride (Micro-K Extencaps) 10 meq DAILY PO Last administered on 09/21/18 09:00; Start 09/15/18 at 09:00 Potassium Chloride (Micro-K Extencaps) 20 meq DAILY PO Last administered on 09/14/18 08:32; Start 09/10/18 at 09:00; Stop 09/14/18 at 10:26; Status DC Senna (Senokot) 1 tab QHS PO Last administered on 09/20/18at 19:29; Start 09/09/18 at 21:00 Sodium Chloride (Saline Lock Flush) 10 ml ASDIRECTED PRN IV SEE LABEL COMMENTS Last administered on 09/10/18at 00:37; Start 09/09/18 at 18:15; Stop 09/15/18 at 03:45; Status DC Sodium Chloride (Saline Lock Flush) 10 ml ASDIRECTED PRN IV SEE LABEL COMMENTS Last administered on 09/10/18at 16:49; Start 09/10/18 at 10:30; Stop 09/14/18 at 17:26; Status DC Sodium Chloride (Saline Lock Flush) 10 ml PICC IV Last administered on 09/10/18 at 05:11; Start 09/10/18 at 06:00; Stop 09/10/18 at 11:25; Status DC Sodium Chloride (Saline Lock Flush) 10 ml PICC IV Last administered on 09/14/18at 05:30; Start 09/10/18 at 18:00; Stop 09/14/18 at 17:26; Status DC Sucralfate (Carafate) 1 gm ACHS PO Last administered on 09/21/18at 09:00; Start 09/09/18 at 17:30 Tiotropium [place] (Spiriva Handihaler) 1 inhalation DAILY@08 INH Last administered on 09/16/18at 07:50; Start 09/10/18 at 08:00 Trazodone HCl (Desyrel) 25 mg QHS PO Last administered on 09/20/18at 19:28; Start 09/15/18 at 21:00 Zinc Oxide (Boudreauxs Butt Paste) sacrum TID TOP Last administered on 09/21/18at 09:02; Start 09/09/18 at 21:00 IZZY FLORES MD Sep 21, 2018 10:26
--- NOTE | 2018-09-21 10:26 | IPNPDOC ---
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 REVIEW OF SYSTEMS: The following is a completed review of systems and has been reviewed. Review of systems otherwise unremarkable. PAIN: Patient self reports left limb pain EYES: no recent vision changes EARS, NOSE, & THROAT: denies dysphagia, rhinorrhea, or recent hearing loss CARDIOVASCULAR: denies chest pain/palpitations PULMONARY: + dyspnea on exertion, cough resolved GASTROINTESTINAL:denies diarrhea, +constipation GENITOURINARY: denies dysuria, +incontinence MUSCULOSKELETAL: left AKA NEUROLOGICAL: no tremor or seizure activity HEMATOLOGICAL: +anemia SKIN: left AKA incision PSYCHIATRIC: Unremarkable All other review of systems found to be negative. PHYSICAL EXAMINATION: VITAL SIGNS: Please see below. GENERAL: Pleasant and cooperative. No acute distress. HEENT: PERRL. Extraocular movements intact. Clear conjunctiva CARDIOVASCULAR: Regular rate and rhythm. No murmurs, rubs, or gallops LUNGS: CTA, No wheezes. no rhonchi ABDOMEN: Soft, nontender, nondistended. Positive bowel sounds. Normal active bowel sounds NEUROLOGICAL: Alert and oriented times three. Cranial nerves II through XII grossly intact. Sensation grossly intact EXTREMITIES: 5-\5 strength bilateral upper extremities. 5\5 strength right lower extremity. >3/5 left hip flexors and abduction +RLE edema : Day- draining clear urine SKIN: left residual limb incision without induration, mildly erythematous, c/d/i -sacrum mild erythema, no pressure ulcers ASSESSMENT:78-year-old F with past medical history of PVD who presents status post left AKA PLAN: 1. Rehab: PT, OT, stretch left limb to prevent hip flexor or abduction contractures, teach limb care, strengthen RLE, improve trunk control, upper body strengthening, and shoulder protection techniques for wheelchair propulsion -plateauing in therapy, contact guard-min assist for transfers 2. Neuro: avoid deliriogenic medications given recent episode of altered mental status 3. CArdio: [facility] HTN- c/u BP meds, [facility] HLD c/u statin- medicine consulted to help manage -c/u lasix 4. Vasc: [facility] PVD s/p Left AKA- will consult vascular, currently off Plavix given hx of GI bleed, switched from IV Zosyn to po Augmentin per medicine 5. Resp: chronic smoker with COPD, currently on 02, will attempt to wean, will start Duonebs and guaifenesin for productive cough- c/u augmentin -will need outpatient f/u for spiculated mass seen on recent chest imaging 6. Endo: pmh DM, low normal FS on glimepiride, will d/c and c.u BID FS checks 7. GI: pmh upper and lower GI bleed, c/u protonix and sucralfate 8. DVT ppx: Teds to RLE and heparin BID 9. : monitor PVRs,Day removed 09/14/18 10. Skin: per vascular recs keep LLE limb unwrapped-recs appreciated, will c/u silver otpifoam, Zinc oxide to sacrum BID 11. Dispo: TBD 12. Pain: Tylenol standing and d/c oxycodone -c/u gabapentin 300mg qHS for evening neuropathic pain and 200mg BID during daytime hours 13. Heme: anemia of chronic disease and hx of GI bleed- c/u Iron and monitor, wi ll transfuse if <8 14. Hypokalemia- resolvedc/u to monitor BMP 15. Psych: c/u Remeron for depression and sleep, c/u trazodone 16. DNR 17. Dispo: progressing slowly, will need SNF discharge Allergies Coded Allergies: No Known Allergies (Verified , 02/24/06) Vital Signs Vital Signs Date Time Temp Pulse Resp B/P (MAP) Pulse Ox O2 Delivery O2 Flow Rate FiO2 09/21/18 06:00 97.7 100 18 138/66 (90) 97 Laboratory Data CBC/BMP Laboratory Tests 09/21/18 06:14 Red Blood Count 4.14, Mean Corpuscular Volume 90.6, Mean Corpuscular Hemoglobin 27.8, Mean Corpuscular Hemoglobin Concent 30.7 L, Red Cell Distribution Width 19.0 H, Neutrophils (%) (Auto) 75.0 H, Lymphocytes (%) (Auto) 12.9 L, Monocytes (%) (Auto) 8.7 H, Eosinophils (%) (Auto) 1.8, Basophils (%) (Auto) 0.7, Neutrophils # (Auto) 6.4, Lymphocytes # (Auto) 1.1 L, Monocytes # (Auto) 0.7, Eosinophils # (Auto) 0.2, Basophils # (Auto) 0.1, Calcium Level 8.4 L Labs 24H Laboratory Tests 2 09/20/18 16:36: Bedside Glucose (Misc Panel) 133H 09/21/18 06:14: Immature Granulocyte % (Auto) 0.9, White Blood Count 8.5, Red Blood Count 4.14, Hemoglobin 11.5L, Hematocrit 37.5, Mean Corpuscular Volume 90.6, Mean Corpuscular Hemoglobin 27.8, Mean Corpuscular Hemoglobin Concent 30.7L, Red Cell Distribution Width 19.0H, Platelet Count 495H, Neutrophils (%) (Auto) 75.0H, Lymphocytes (%) (Auto) 12.9L, Monocytes (%) (Auto) 8.7H, Eosinophils (%) (Auto) 1.8, Basophils (%) (Auto) 0.7, Neutrophils # (Auto) 6.4, Lymphocytes # (Auto) 1.1L, Monocytes # (Auto) 0.7, Eosinophils # (Auto) 0.2, Basophils # (Auto) 0.1, Nucleated Red Blood Cells % (auto) 0.0, Anion Gap 6L, Glomerular Filtration Rate > 60.0, Blood Urea Nitrogen 16, Creatinine 0.61, Sodium Level 141, Potassium Level 4.2, Chloride Level 108H, Carbon Dioxide Level 27, Calcium Level 8.4L 09/21/18 06:23: Bedside Glucose (Misc Panel) 120H Current Medications Current Medications Current Medications Acetaminophen (Tylenol Tab) 1,000 mg TID PO Last administered on 09/21/18at 09:01; Start 09/09/18 at 21:00 Albuterol/ Ipratropium (Duoneb (Ipr 0.5mg/Alb 2.5mg)) 3 ml RTID NEB Last administered on 09/16/18at 07:50; Start 09/09/18 at 20:00 Amlodipine Besylate (Norvasc) 5 mg DAILY PO Last administered on 09/10/18at 09:00; Start 09/10/18 at 09:00; Stop 09/11/18 at 08:15; Status DC Amoxicillin/ Clavulanate Potassium (Augmentin) 875 mg BID PO Last administered on 09/14/18 20:29; Start 09/10/18 at 21:00; Stop 09/14/18 at 21:00; Status DC Atorvastatin Calcium (Lipitor) 40 mg QHS PO Last administered on 09/20/18 19:29; Start 09/09/18 at 21:00 Bisacodyl (Dulcolax Suppository) 10 mg DAILYPRN PRN RI CONSTIPATION; Start 09/09/18 at 16:45 Dextrose (Dextrose 50%) 25 ml ASDIRECTED PRN IV SEE LABEL COMMENTS; Start 09/09/18 at 16:45 Docusate Sodium (Colace) 100 mg BID PO Last administered on 09/21/18 09:00; Start 09/09/18 at 21:00 Ferrous Gluconate (Fergon) 324 mg BID PO Last administered on 09/21/18 09:00; Start 09/09/18 at 21:00 Furosemide (Lasix) 20 mg DAILY PO Last administered on 09/21/18 09:00; Start 09/11/18 at 09:00 Furosemide (Lasix) 40 mg DAILY PO Last administered on 09/10/18at 09:01; Start 09/10/18 at 09:00; Stop 09/10/18 at 12:34; Status DC Gabapentin (Neurontin) 200 mg BID PO ; Start 09/21/18 at 21:00; Status UNV Gabapentin (Neurontin) 300 mg QHS PO Last administered on 09/20/18 19:29; Start 09/18/18 at 21:00 Glimepiride (Amaryl) 2 mg QHS PO Last administered on 09/20/18 19:29; Start 09/09/18 at 21:00 Glucagon (Glucagon) 1 mg ASDIRECTED PRN SC SEE LABEL COMMENTS; Start 09/09/18 at 16:45 Glucose (Glucose) 16 GM ASDIRECTED PRN PO SEE LABEL COMMENTS; Start 09/09/18 at 16:45 Guaifenesin (Robitussin Tab) 400 mg TID PO Last administered on 09/21/18 09:00; Start 09/09/18 at 21:00 Heparin Sodium (Heparin (Flush)) 200 units ASDIRECTED PRN IV SEE LABEL COMMENTS Last administered on 09/10/18at 00:37; Start 09/09/18 at 18:15; Stop 09/15/18 at 03:45; Status DC Heparin Sodium (Heparin (Flush)) 200 units ASDIRECTED PRN IV SEE LABEL COMMENTS Last administered on 09/10/18at 16:49; Start 09/10/18 at 10:30; Stop 09/14/18 at 17:26; Status DC Heparin Sodium (Heparin (Flush)) 200 units PICC IV Last administered on 09/10/18at 05:11; Start 09/10/18 at 06:00; Stop 09/10/18 at 11:25; Status DC Heparin Sodium (Heparin (Flush)) 200 units PICC IV Last administered on 09/14/18at 05:29; Start 09/10/18 at 18:00; Stop 09/14/18 at 17:26; Status DC Heparin Sodium (Porcine) (Heparin) 5,000 units Q12H SC Last administered on 09/21/18at 09:01; Start 09/09/18 at 21:00 Insulin Human Lispro (HumaLOG INSULIN) SEE PROTOCOL TABLE AC SC Last administered on 09/17/18at 13:09; Start 09/09/18 at 17:30; Stop 09/18/18 at 08:03; Status DC Insulin Human Lispro (HumaLOG INSULIN) SEE PROTOCOL TABLE QHS SC Last administered on 09/15/18at 20:47; Start 09/09/18 at 21:00; Stop 09/18/18 at 08:03; Status DC Magnesium Hydroxide (Milk Of Magnesia) 30 ml DAILYPRN PRN PO CONSTIPATION; Start 09/09/18 at 16:45 Metformin HCl (Glucophage Xr) 1,000 mg BID PO Last administered on 09/09/18at 20:48; Start 09/09/18 at 21:00; Stop 09/10/18 at 09:33; Status DC Mirtazapine (Remeron) 15 mg QPM PO Last administered on 09/20/18at 19:29; Start 09/16/18 at 21:00 Ondansetron HCl (Zofran) 4 mg Q6HP PRN PO NAUSEA; Start 09/09/18 at 16:45 Oxycodone HCl (Roxicodone, Oxyir) 5 mg Q4HP PRN PO PAIN Last administered on 09/15/18at 03:50; Start 09/09/18 at 16:45; Stop 09/15/18 at 14:03; Status DC Oxycodone HCl (Roxicodone, Oxyir) 5 mg Q6H PRN PO PAIN Last administered on 09/19/18 21:21; Start 09/15/18 at 14:15; Stop 09/21/18 at 10:25; Status DC Pantoprazole Sodium (Protonix) 40 mg DAILY PO Last administered on 09/21/18 09:00; Start 09/10/18 at 09:00 Piperacillin Sod/ Tazobactam Sod 3.375 gm/Dextrose 50 ml @ 50 mls/hr Q6H IV Last administered on 09/10/18 10:27; Start 09/09/18 at 17:00; Stop 09/10/18 at 16:41; Status DC Potassium Chloride (Micro-K Extencaps) 10 meq DAILY PO Last administered on 09/21/18 09:00; Start 09/15/18 at 09:00 Potassium Chloride (Micro-K Extencaps) 20 meq DAILY PO Last administered on 09/14/18 08:32; Start 09/10/18 at 09:00; Stop 09/14/18 at 10:26; Status DC Senna (Senokot) 1 tab QHS PO Last administered on 09/20/18 19:29; Start 09/09/18 at 21:00 Sodium Chloride (Saline Lock Flush) 10 ml ASDIRECTED PRN IV SEE LABEL COMMENTS Last administered on 09/10/18 00:37; Start 09/09/18 at 18:15; Stop 09/15/18 at 03:45; Status DC Sodium Chloride (Saline Lock Flush) 10 ml ASDIRECTED PRN IV SEE LABEL COMMENTS Last administered on 09/10/18at 16:49; Start 09/10/18 at 10:30; Stop 09/14/18 at 17:26; Status DC Sodium Chloride (Saline Lock Flush) 10 ml PICC IV Last administered on 09/10/18 05:11; Start 09/10/18 at 06:00; Stop 09/10/18 at 11:25; Status DC Sodium Chloride (Saline Lock Flush) 10 ml PICC IV Last administered on 09/14/18at 05:30; Start 09/10/18 at 18:00; Stop 09/14/18 at 17:26; Status DC Sucralfate (Carafate) 1 gm ACHS PO Last administered on 09/21/18at 09:00; Start 09/09/18 at 17:30 Tiotropium [place] (Spiriva Handihaler) 1 inhalation DAILY@08 INH Last administered on 09/16/18at 07:50; Start 09/10/18 at 08:00 Trazodone HCl (Desyrel) 25 mg QHS PO Last administered on 09/20/18at 19:28; Start 09/15/18 at 21:00 Zinc Oxide (Boudreauxs Butt Paste) sacrum TID TOP Last administered on 09/21/18 09:02; Start 09/09/18 at 21:00 IZZY FLORES MD Sep 21, 2018 10:26
[2018-09-21] MEDS: GABAPENTIN 100 MG CAP PO SCH ×2 (11:57→17:11)
[2018-09-21 14:00] VITALS: BP 120/60
[2018-09-21 20:00] VITALS: BP 127/64
[2018-09-21] MEDS: ATORVASTATIN 20 MG TAB PO SCH (21:06)
[2018-09-21] MEDS: SENNA 8.6 MG TAB (SENOKOT) PO SCH (21:07)
[2018-09-21] MEDS: MIRTAZAPINE 15 MG TAB PO SCH (21:07)
[2018-09-21] MEDS: traZODone 25MG PER 1/2 TABLET PO SCH (21:07)
[2018-09-21] MEDS: GABAPENTIN 300 MG CAP PO SCH (21:07)
[2018-09-22 05:55] VITALS: BP 117/59
[2018-09-22] MEDS: TIOTROPIUM INHALER/CAPSULE (SPIRIVA) INH SCH (07:20)
[2018-09-22] MEDS: IPRATROPIUM 0.5MG/ALBUTEROL 2.5MG INH SOL UD 3ML (DUONEB)(J7620) NEB SCH ×2 (07:20→14:00)
[2018-09-22] MEDS: FERROUS GLUCONATE 324 MG TAB PO SCH ×2 (08:59→20:34)
[2018-09-22] MEDS: DOCUSATE SODIUM 100 MG CAP PO SCH ×2 (08:59→20:34)
[2018-09-22] MEDS: SUCRALFATE 1 GM TAB PO SCH ×4 (08:59→20:34)
[2018-09-22] MEDS: HEPARIN SOD (PORCINE) 5000 UNITS/ML VIAL SC SCH ×2 (08:59→20:35)
[2018-09-22] MEDS: FUROSEMIDE 20 MG TAB PO SCH (09:00)
[2018-09-22] MEDS: guaiFENesin 200 MG TAB PO SCH ×3 (09:00→20:33)
[2018-09-22] MEDS: POTASSIUM CHLORIDE 10 MEQ SR TABLET PO SCH (09:00)
[2018-09-22] MEDS: BOUDREAUX'S BUTT PASTE TOP SCH ×3 (09:01→20:45)
[2018-09-22] MEDS: PANTOPRAZOLE 40MG TAB (PROTONIX) PO SCH (09:01)
[2018-09-22] MEDS: GABAPENTIN 100 MG CAP PO SCH ×2 (09:01→16:53)
[2018-09-22] MEDS: ACETAMINOPHEN 500 MG TAB PO SCH ×3 (09:01→20:35)
--- NOTE | 2018-09-22 11:06 | IPNPDOC ---
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 REVIEW OF SYSTEMS: The following is a completed review of systems and has been reviewed. Review of systems otherwise unremarkable. PAIN: Patient self reports left limb pain EYES: no recent vision changes EARS, NOSE, & THROAT: denies dysphagia, rhinorrhea, or recent hearing loss CARDIOVASCULAR: denies chest pain/palpitations PULMONARY: + dyspnea on exertion, cough resolved GASTROINTESTINAL:denies diarrhea, +constipation GENITOURINARY: denies dysuria, +incontinence MUSCULOSKELETAL: left AKA NEUROLOGICAL: no tremor or seizure activity HEMATOLOGICAL: +anemia SKIN: left AKA incision PSYCHIATRIC: Unremarkable All other review of systems found to be negative. PHYSICAL EXAMINATION: VITAL SIGNS: Please see below. GENERAL: Pleasant and cooperative. No acute distress. HEENT: PERRL. Extraocular movements intact. Clear conjunctiva CARDIOVASCULAR: Regular rate and rhythm. No murmurs, rubs, or gallops LUNGS: CTA, No wheezes. no rhonchi ABDOMEN: Soft, nontender, nondistended. Positive bowel sounds. Normal active bowel sounds NEUROLOGICAL: Alert and oriented times three. Cranial nerves II through XII grossly intact. Sensation grossly intact EXTREMITIES: 5-\5 strength bilateral upper extremities. 5\5 strength right lower extremity. >3/5 left hip flexors and abduction +RLE edema : Day- draining clear urine SKIN: left residual limb incision without induration, mildly erythematous, c/d/i -sacrum mild erythema, no pressure ulcers ASSESSMENT:78-year-old F with past medical history of PVD who presents status post left AKA PLAN: 1. Rehab: PT, OT, stretch left limb to prevent hip flexor or abduction contractures, teach limb care, strengthen RLE, improve trunk control, upper body strengthening, and shoulder protection techniques for wheelchair propulsion -plateauing in therapy, contact guard-min assist for transfers 2. Neuro: avoid deliriogenic medications given recent episode of altered mental status 3. CArdio: [facility] HTN- c/u BP meds, [facility] HLD c/u statin- medicine consulted to help manage -c/u lasix 4. Vasc: [facility] PVD s/p Left AKA- will consult vascular, currently off Plavix given hx of GI bleed, switched from IV Zosyn to po Augmentin per medicine 5. Resp: chronic smoker with COPD, currently on 02, will attempt to wean, will start Duonebs and guaifenesin for productive cough- c/u augmentin -will need outpatient f/u for spiculated mass seen on recent chest imaging 6. Endo: pmh DM, low normal FS on glimepiride, will d/c and c.u BID FS checks 7. GI: pmh upper and lower GI bleed, c/u protonix and sucralfate 8. DVT ppx: Teds to RLE and heparin BID 9. : monitor PVRs,Day removed 09/14/18 10. Skin: per vascular recs keep LLE limb unwrapped-recs appreciated, will c/u silver otpifoam, Zinc oxide to sacrum BID 11. Dispo: TBD 12. Pain: Tylenol standing and d/c oxycodone -c/u gabapentin 300mg qHS for evening neuropathic pain and 200mg BID during daytime hours 13. Heme: anemia of chronic disease and hx of GI bleed- c/u Iron and monitor, will transfuse if <8 14. Hypokalemia- resolved/u to monitor BMP 15. Psych: c/u Remeron for depression and sleep, c/u trazodone 16. DNR 17. Dispo: progressing slowly, will need SNF discharge 09/23/18 Allergies Coded Allergies: No Known Allergies (Verified , 02/24/06) Vital Signs Vital Signs Date Time Temp Pulse Resp B/P (MAP) Pulse Ox O2 Delivery O2 Flow Rate FiO2 09/22/18 05:55 96.6 90 18 117/59 (78) 94 Laboratory Data Labs 24H Laboratory Tests 2 09/21/18 11:52: Bedside Glucose (Misc Panel) 87 09/21/18 16:36: Bedside Glucose (Misc Panel) 103 09/22/18 06:21: Bedside Glucose (Misc Panel) 118H Current Medications Current Medications Current Medications Acetaminophen (Tylenol Tab) 1,000 mg TID PO Last administered on 09/22/18at 09:01; Start 09/09/18 at 21:00 Albuterol/ Ipratropium (Duoneb (Ipr 0.5mg/Alb 2.5mg)) 3 ml RTID NEB Last administered on 09/16/18 07:50; Start 09/09/18 at 20:00 Amlodipine Besylate (Norvasc) 5 mg DAILY PO Last administered on 09/10/18 09:00; Start 09/10/18 at 09:00; Stop 09/11/18 at 08:15; Status DC Amoxicillin/ Clavulanate Potassium (Augmentin) 875 mg BID PO Last administered on 09/14/18 20:29; Start 09/10/18 at 21:00; Stop 09/14/18 at 21:00; Status DC Atorvastatin Calcium (Lipitor) 40 mg QHS PO Last administered on 09/21/18 21:06; Start 09/09/18 at 21:00 Bisacodyl (Dulcolax Suppository) 10 mg DAILYPRN PRN NE CONSTIPATION; Start 09/09/18 at 16:45 Dextrose (Dextrose 50%) 25 ml ASDIRECTED PRN IV SEE LABEL COMMENTS; Start 09/09/18 at 16:45 Docusate Sodium (Colace) 100 mg BID PO Last administered on 09/22/18 08:59; Start 09/09/18 at 21:00 Ferrous Gluconate (Fergon) 324 mg BID PO Last administered on 09/22/18 08:59; Start 09/09/18 at 21:00 Furosemide (Lasix) 20 mg DAILY PO Last administered on 09/22/18 09:00; Start 09/11/18 at 09:00 Furosemide (Lasix) 40 mg DAILY PO Last administered on 09/10/18 09:01; Start 09/10/18 at 09:00; Stop 09/10/18 at 12:34; Status DC Gabapentin (Neurontin) 200 mg BID@0900,1600 PO Last administered on 09/22/18 09:01; Start 09/21/18 at 09:00 Gabapentin (Neurontin) 300 mg QHS PO Last administered on 09/21/18 21:07; Start 09/18/18 at 21:00 Glimepiride (Amaryl) 2 mg QHS PO Last administered on 09/20/18 19:29; Start 09/09/18 at 21:00; Stop 09/21/18 at 10:26; Status DC Glucagon (Glucagon) 1 mg ASDIRECTED PRN SC SEE LABEL COMMENTS; Start 09/09/18 at 16:45 Glucose (Glucose) 16 GM ASDIRECTED PRN PO SEE LABEL COMMENTS; Start 09/09/18 at 16:45 Guaifenesin (Robitussin Tab) 400 mg TID PO Last administered on 09/22/18at 09:00; Start 09/09/18 at 21:00 Heparin Sodium (Heparin (Flush)) 200 units ASDIRECTED PRN IV SEE LABEL COMMENTS Last administered on 09/10/18at 00:37; Start 09/09/18 at 18:15; Stop 09/15/18 at 03:45; Status DC Heparin Sodium (Heparin (Flush)) 200 units ASDIRECTED PRN IV SEE LABEL COMMENTS Last administered on 09/10/18at 16:49; Start 09/10/18 at 10:30; Stop 09/14/18 at 17:26; Status DC Heparin Sodium (Heparin (Flush)) 200 units PICC IV Last administered on 09/10/18at 05:11; Start 09/10/18 at 06:00; Stop 09/10/18 at 11:25; Status DC Heparin Sodium (Heparin (Flush)) 200 units PICC IV Last administered on 09/14/18at 05:29; Start 09/10/18 at 18:00; Stop 09/14/18 at 17:26; Status DC Heparin Sodium (Porcine) (Heparin) 5,000 units Q12H SC Last administered on 09/22/18at 08:59; Start 09/09/18 at 21:00 Insulin Human Lispro (HumaLOG INSULIN) SEE PROTOCOL TABLE AC SC Last administered on 09/17/18at 13:09; Start 09/09/18 at 17:30; Stop 09/18/18 at 08:03; Status DC Insulin Human Lispro (HumaLOG INSULIN) SEE PROTOCOL TABLE QHS SC Last administered on 09/15/18at 20:47; Start 09/09/18 at 21:00; Stop 09/18/18 at 08:03; Status DC Magnesium Hydroxide (Milk Of Magnesia) 30 ml DAILYPRN PRN PO CONSTIPATION; Start 09/09/18 at 16:45 Metformin HCl (Glucophage Xr) 1,000 mg BID PO Last administered on 09/09/18at 20:48; Start 09/09/18 at 21:00; Stop 09/10/18 at 09:33; Status DC Mirtazapine (Remeron) 15 mg QPM PO Last administered on 09/21/18 21:07; Start 09/16/18 at 21:00 Ondansetron HCl (Zofran) 4 mg Q6HP PRN PO NAUSEA Last administered on 09/22/18 09:58; Start 09/09/18 at 16:45 Oxycodone HCl (Roxicodone, Oxyir) 5 mg Q4HP PRN PO PAIN Last administered on 09/15/18 03:50; Start 09/09/18 at 16:45; Stop 09/15/18 at 14:03; Status DC Oxycodone HCl (Roxicodone, Oxyir) 5 mg Q6H PRN PO PAIN Last administered on 09/19/18 21:21; Start 09/15/18 at 14:15; Stop 09/21/18 at 10:25; Status DC Pantoprazole Sodium (Protonix) 40 mg DAILY PO Last administered on 09/22/18 09:01; Start 09/10/18 at 09:00 Piperacillin Sod/ Tazobactam Sod 3.375 gm/Dextrose 50 ml @ 50 mls/hr Q6H IV Last administered on 09/10/18 10:27; Start 09/09/18 at 17:00; Stop 09/10/18 at 16:41; Status DC Potassium Chloride (Micro-K Extencaps) 10 meq DAILY PO Last administered on 09/22/18 09:00; Start 09/15/18 at 09:00 Potassium Chloride (Micro-K Extencaps) 20 meq DAILY PO Last administered on 09/14/18 08:32; Start 09/10/18 at 09:00; Stop 09/14/18 at 10:26; Status DC Senna (Senokot) 1 tab QHS PO Last administered on 09/21/18 21:07; Start 09/09/18 at 21:00 Sodium Chloride (Saline Lock Flush) 10 ml ASDIRECTED PRN IV SEE LABEL COMMENTS Last administered on 09/10/18 00:37; Start 09/09/18 at 18:15; Stop 09/15/18 at 03:45; Status DC Sodium Chloride (Saline Lock Flush) 10 ml ASDIRECTED PRN IV SEE LABEL COMMENTS Last administered on 09/10/18 16:49; Start 09/10/18 at 10:30; Stop 09/14/18 at 17:26; Status DC Sodium Chloride (Saline Lock Flush) 10 ml PICC IV Last administered on 09/10/18 05:11; Start 09/10/18 at 06:00; Stop 09/10/18 at 11:25; Status DC Sodium Chloride (Saline Lock Flush) 10 ml PICC IV Last administered on 09/14/18 05:30; Start 09/10/18 at 18:00; Stop 09/14/18 at 17:26; Status DC Sucralfate (Carafate) 1 gm ACHS PO Last administered on 09/22/18 08:59; Start 09/09/18 at 17:30 Tiotropium [place] (Spiriva Handihaler) 1 inhalation DAILY@08 INH Last administered on 09/22/18 07:20; Start 09/10/18 at 08:00 Trazodone HCl (Desyrel) 25 mg QHS PO Last administered on 09/21/18 21:07; Start 09/15/18 at 21:00 Zinc Oxide (Boudreauxs Butt Paste) sacrum TID TOP Last administered on 09/22/18 09:01; Start 09/09/18 at 21:00 IZZY FLORES MD Sep 22, 2018 11:06
[2018-09-22 14:00] VITALS: BP 131/66
[2018-09-22] MEDS ORDERED: ACET-683 PO (15:57)
[2018-09-22] MEDS ORDERED: HEPA500011 SC (15:57)
[2018-09-22] MEDS ORDERED: REME15TA PO (15:57)
[2018-09-22] MEDS ORDERED: BOUDPST TOP (15:57)
[2018-09-22] MEDS ORDERED: TRAZ-252 PO (15:57)
[2018-09-22] MEDS ORDERED: TIOT18INH INH (15:57)
[2018-09-22] MEDS ORDERED: SUCR1TA PO (15:57)
[2018-09-22] MEDS ORDERED: COLA100C5 PO (15:57)
[2018-09-22] MEDS ORDERED: GABA-1171 PO (15:57)
[2018-09-22] MEDS ORDERED: PANT40TA3 PO (15:57)
[2018-09-22] MEDS ORDERED: FURO20TA2 PO (15:57)
[2018-09-22] MEDS ORDERED: IPRA0.00 NEB (15:57)
[2018-09-22] MEDS ORDERED: GABA-843 PO (15:57)
[2018-09-22] MEDS ORDERED: KLOR10TA76 PO (15:57)
[2018-09-22] MEDS ORDERED: ATOR1TAB21 PO (15:57)
[2018-09-22] MEDS ORDERED: FERR32TA PO (15:57)
[2018-09-22] MEDS ORDERED: GUAI20TA PO (15:57)
[2018-09-22] MEDS ORDERED: SENN18TA PO (15:57)
[2018-09-22 20:00] VITALS: BP 111/57
[2018-09-22] MEDS: GABAPENTIN 300 MG CAP PO SCH (20:34)
[2018-09-22] MEDS: ATORVASTATIN 20 MG TAB PO SCH (20:34)
[2018-09-22] MEDS: traZODone 25MG PER 1/2 TABLET PO SCH (20:34)
[2018-09-22] MEDS: SENNA 8.6 MG TAB (SENOKOT) PO SCH (20:34)
[2018-09-22] MEDS: MIRTAZAPINE 15 MG TAB PO SCH (20:34)
[2018-09-23 06:00] VITALS: BP 131/62
[2018-09-23] MEDS: TIOTROPIUM INHALER/CAPSULE (SPIRIVA) INH SCH (08:00)
[2018-09-23] MEDS: IPRATROPIUM 0.5MG/ALBUTEROL 2.5MG INH SOL UD 3ML (DUONEB)(J7620) NEB SCH (08:00)
[2018-09-23] MEDS: HEPARIN SOD (PORCINE) 5000 UNITS/ML VIAL SC SCH (09:09)
[2018-09-23] MEDS: guaiFENesin 200 MG TAB PO SCH (09:09)
[2018-09-23] MEDS: SUCRALFATE 1 GM TAB PO SCH (09:09)
[2018-09-23] MEDS: ACETAMINOPHEN 500 MG TAB PO SCH (09:10)
[2018-09-23] MEDS: PANTOPRAZOLE 40MG TAB (PROTONIX) PO SCH (09:10)
[2018-09-23] MEDS: POTASSIUM CHLORIDE 10 MEQ SR TABLET PO SCH (09:10)
[2018-09-23] MEDS: FERROUS GLUCONATE 324 MG TAB PO SCH (09:10)
[2018-09-23] MEDS: BOUDREAUX'S BUTT PASTE TOP SCH (09:10)
[2018-09-23] MEDS: GABAPENTIN 100 MG CAP PO SCH (09:10)
[2018-09-23] MEDS: FUROSEMIDE 20 MG TAB PO SCH (09:10)
--- NOTE | 2018-09-23 13:03 | PMRDS ---
DATE OF ADMISSION: 09/09/2018 DATE OF DISCHARGE: 09/23/2018 CHIEF COMPLAINT/DISCHARGE DIAGNOSIS: Left above-knee amputation (AKA). HISTORY OF PRESENT ILLNESS: 78-year-old female past, medical history of hypertension, hyperlipidemia, diabetes type 2, COPD, gastrointestinal (GI) bleed, smoker, deep venous thrombosis (DVT), underwent recent [id number] femoral bypass revision in July 2018 with persistent peripheral vascular disease (PVD) of her left lower extremity, admitted to [facility] ([facility]) on 08/23/2018 with painful limb. She was observed for a period of time and had a left axillofemoral bypass on 08/28/2018; however, her symptoms worsen despite surgical intervention and use of a heparin drip. CT angio on 09/01/2018 showed "occlusion of the infrarenal abdominal aorta...right axillofemoral bypass graft. Occlusion of femoral to femoral bypass graft...collateral is seen via multiple tiny collateral vessels in the left thigh reconstituting portions of the trifurcation artery in the left calf." She had drops in her hemoglobin/hematocrit while on Plavix requiring multiple blood transfusions and, ultimately, the patient chose to be taken off of Plavix having been offered the choice of no Plavix versus continue Plavix and check serial endoscopies. Patient had an episode of hypoxia, and there was concern for aspiration for which CT chest on 09/06 showed "spiculated mass is seen in both the right upper lobe and left lower lobe. Diffuse peribronchial thickening of the right lower lobe with mild interstitial infiltrate in that region." She was continued on empiric antibiotics and ultimately underwent an AKA on 09/07/[address] Morton without complications. She had episodes of lethargy thought to be from the use of valium, which was discontinued. She was seen by therapy and was well below her prior level of function requiring assistance in mobility and activities of daily living (ADLs) and deemed medically appropriate for discharge to ARU on 09/09/2018. PAST MEDICAL HISTORY: As per history of present illness (HPI). HOSPITAL COURSE: The patient was admitted and enrolled in a comprehensive physical therapy (PT)/occupational therapy (OT) program. She received 24-hour nursing supervision, and weekly team meetings were held to discuss her progress. She was maintained on Lasix and her home blood pressure medications for her history of hypertension, hyperlipidemia, with improvement in her overall cough and continued a course of Augmentin. She was continued on Protonix and sucralfate for her history of upper and lower GI bleed with stable hemoglobin and hematocrit during her hospital course. She wore thromboembolism deterrents (TEDs) to her right lower extremity and received heparin twice a day. Poor wound healing in the setting of incontinence, and a Day was placed for a few days in order to keep her left AKA dry. Her limb was not wrapped in Brannon wrap, instead was just covered with silver Optifoam per vascular requisitions, and her pain was controlled with gabapentin, initially, started at night and then added during the day to help with her neuropathic and residual limb pain. She was able to taper herself off of the oxycodone. She had episodes of hypokalemia which resolved with repletion and was started on Remeron for reported depression and difficulty sleeping and was also maintained on trazodone. She began to plateau in therapy and deemed medically and functionally appropriate for discharge to retirement facility ([facility]) for further care. DISCHARGE MEDICATIONS: As per discharge recs. FUNCTIONAL HISTORY: Upon discharge, the patient was contact guard assist for functional transfers, able to ambulate 11 feet with a rolling walker contact guard, able to propel her wheelchair 200 feet independently, and in occupational therapy, standby assist for bathing, kristy for upper body dressing, contact guard for lower body dressing, standby assist for grooming, contact guard for toileting. Thank you for this referral.
== END 2018-09-23 11:20 | DRG 560 ==
LOC: M PM&R 15:20
PROVIDERS: ADMIT Physical Medicine & Rehabilitation; ATTEND Physical Medicine & Rehabilitation
DX: Z47.81 Encounter for orthopedic aftercare following surgical amputation (principal); D62 Acute posthemorrhagic anemia; E44.0 Moderate protein-calorie malnutrition; Z89.612 Acquired absence of left leg above knee; I10 Essential (primary) hypertension; E78.5 Hyperlipidemia, unspecified; E11.51 Type 2 diabetes mellitus with diabetic peripheral angiopathy without gangrene; J44.9 Chronic obstructive pulmonary disease, unspecified; F17.200 Nicotine dependence, unspecified, uncomplicated; Z66 Do not resuscitate; Z79.899 Other long term (current) drug therapy; E87.6 Hypokalemia; R91.1 Solitary pulmonary nodule; F32.9 Major depressive disorder, single episode, unspecified

== ENCOUNTER → 2018-10-01 | Outpatient (REF) ==
[~2018-10-01] MED LIST changes: +ACET-683 PO; +ACET-897 PO; +ATOR1TAB21 PO; +BOUDPST TOP; +CIPR-249 PO; +COLA100C5 PO; +DOCU100C17 PO; +DULC10SU2 PR; +FERR32TA PO; +FLEEENE12 PR; +FURO20TA2 PO; +GABA-1171 PO; +GABA-843 PO; -GLIM2TAB PO; +GLIM2TAB4 PO; -GLIM4TAB PO; +GLIM4TAB5 PO; +GUAI20TA PO; +GUAI400T9 PO; +HEPA100SYR IV; +HEPA500011 SC; +HEPA500011 SQ; +HYDR-4571 PO; +IPRA0.00 NEB; +KLOR10TA76 PO; +LEVO500T3 PO; +METF-791 PO; -METF500T4 PO; +MOM30SS PO; +OMEP-221 PO; +PANT40TA3 PO; +POTA10TA16 PO; +PROAAER10 INH; +REME15TA PO; +SENN18TA PO; +SENN1TAB8 PO; +TIOT18INH INH; +TRAZ-252 PO; +VITMTA PO; +ZOSY3INJ2 IV
[2018-10-01 07:31] LABS: HEMATOCRIT 34.6 % (36.0-47.0); HEMOGLOBIN 10.7 g/dl (12.0-15.5); MEAN CORPUSCULAR HGB CONC 30.9 g/dl (32.0-36.5); MEAN CORPUSCULAR VOLUME 90.6 fl (80.0-96.0); PLATELET COUNT, AUTOMATED 346 10^3/uL (150-450); RED BLOOD COUNT 3.82 10^6/uL (4.00-5.40); WHITE BLOOD COUNT 5.9 10^3/uL (4.0-10.0)
== END ==
LOC: SKLAB5 12:15
PROVIDERS: ATTEND Internal Medicine
DX: I50.9 Heart failure, unspecified (principal); D64.9 Anemia, unspecified

== ENCOUNTER → 2018-10-02 | Outpatient (REF) ==
[2018-10-02 13:22] LABS: BLOOD UREA NITROGEN 30 MG/DL (7-18); CALCIUM LEVEL 8.8 MG/DL (8.8-10.2); CARBON DIOXIDE LEVEL 27 MEQ/L (21-32); CHLORIDE LEVEL 107 MEQ/L (98-107); CREATININE FOR GFR 0.73 MG/DL (0.55-1.30); GLOMERULAR FILTRATION RATE > 60.0 (>39); GLUCOSE, FASTING 192 MG/DL (70-100); POTASSIUM SERUM 4.2 MEQ/L (3.5-5.1); SODIUM LEVEL 139 MEQ/L (136-145)
[2018-10-02 13:26] LABS: HEMOGLOBIN A1c 6.5 %
== END ==
LOC: SKLAB5 11:49
PROVIDERS: ATTEND Internal Medicine
DX: E11.9 Type 2 diabetes mellitus without complications (principal)

== ENCOUNTER → 2018-10-08 | Outpatient (REF) ==
[~2018-10-08] MED LIST changes: -ACET-897 PO; -CIPR-249 PO; -DOCU100C17 PO; -DULC10SU2 PR; -FLEEENE12 PR; +GLIM2TAB PO; -GLIM2TAB4 PO; +GLIM4TAB PO; -GLIM4TAB5 PO; -GUAI400T9 PO; -LEVO500T3 PO; -METF-791 PO; +METF500T4 PO; -MOM30SS PO; -OMEP-221 PO; -POTA10TA16 PO; -PROAAER10 INH; -SENN1TAB8 PO; -VITMTA PO
[2018-10-08 07:48] LABS: HEMATOCRIT 32.7 % (36.0-47.0); HEMOGLOBIN 10.3 g/dl (12.0-15.5); MEAN CORPUSCULAR HEMOGLOBIN 29.2 pg (27.0-33.0); MEAN CORPUSCULAR HGB CONC 31.5 g/dl (32.0-36.5); MEAN CORPUSCULAR VOLUME 92.6 fl (80.0-96.0); PLATELET COUNT, AUTOMATED 372 10^3/uL (150-450); RED BLOOD COUNT 3.53 10^6/uL (4.00-5.40); WHITE BLOOD COUNT 6.1 10^3/uL (4.0-10.0)
[2018-10-08 08:21] LABS: BLOOD UREA NITROGEN 23 MG/DL (7-18); CALCIUM LEVEL 8.4 MG/DL (8.8-10.2); CARBON DIOXIDE LEVEL 21 MEQ/L (21-32); CHLORIDE LEVEL 112 MEQ/L (98-107); GLOMERULAR FILTRATION RATE > 60.0 (>39); GLUCOSE, FASTING 165 MG/DL (70-100); SODIUM LEVEL 141 MEQ/L (136-145)
== END ==
LOC: SKLAB5 07:43
PROVIDERS: ATTEND Internal Medicine
DX: I50.9 Heart failure, unspecified (principal); D64.9 Anemia, unspecified

== ENCOUNTER → 2018-10-14 | Outpatient (REF) | payer MEDICARE ==
[~2018-10-14] MED LIST changes: +ACET-897 PO; +CIPR-249 PO; +DOCU100C17 PO; +DULC10SU2 PR; +FLEEENE12 PR; +GUAI400T9 PO; +LEVO500T3 PO; +MOM30SS PO; +OMEP-221 PO; +POTA10TA16 PO; +PROAAER10 INH; +SENN1TAB8 PO; +VITMTA PO
== END ==
LOC: SKLAB5 21:30
PROVIDERS: ATTEND Internal Medicine
DX: R30.0 Dysuria (principal); R50.9 Fever, unspecified

== ENCOUNTER 2018-10-15 01:21 | Emergency (ER) | payer MEDICARE, MEDICAID ==
[~2018-10-15] VITALS: Ht 170.2 cm; Wt 44.9 kg
[~2018-10-15 01:21] MED LIST changes: -ACET-897 PO; -CIPR-249 PO; -DOCU100C17 PO; -DULC10SU2 PR; -FLEEENE12 PR; -GUAI400T9 PO; -LEVO500T3 PO; -MOM30SS PO; -OMEP-221 PO; -POTA10TA16 PO; -PROAAER10 INH; -SENN1TAB8 PO; -VITMTA PO
[2018-10-15 02:45] LABS: ALBUMIN 2.3 GM/DL (3.2-5.2); ALT/SGPT 145 U/L (12-78); BILIRUBIN,TOTAL 0.5 MG/DL (0.2-1.0); BLOOD UREA NITROGEN 24 MG/DL (7-18); CALCIUM LEVEL 8.4 MG/DL (8.8-10.2); CARBON DIOXIDE LEVEL 22 MEQ/L (21-32); CHLORIDE LEVEL 104 MEQ/L (98-107); CREATININE FOR GFR 0.75 MG/DL (0.55-1.30); GLOMERULAR FILTRATION RATE > 60.0 (>39); GLUCOSE, FASTING 269 MG/DL (70-100); POTASSIUM SERUM 3.7 MEQ/L (3.5-5.1); SODIUM LEVEL 136 MEQ/L (136-145); TOTAL PROTEIN 6.8 GM/DL (6.4-8.2)
[2018-10-15 03:03] LABS: BASO % 0.3 % (0.0-1.0); EOS # 0.1 10^3/uL (0.0-0.50); EOS % 0.3 % (0.0-3.0); HEMATOCRIT 34.6 % (36.0-47.0); HEMOGLOBIN 10.5 g/dl (12.0-15.5); LYMPH # 1.1 10^3/uL (1.5-4.5); LYMPH % 7.3 % (24.0-44.0); MEAN CORPUSCULAR HEMOGLOBIN 28.8 pg (27.0-33.0); MEAN CORPUSCULAR HGB CONC 30.3 g/dl (32.0-36.5); MEAN CORPUSCULAR VOLUME 94.8 fl (80.0-96.0); MONO # 1.5 10^3/uL (0.0-0.8); NEUTROPHILS # 12.1 10^3/uL (1.8-7.7); NEUTROPHILS % 81.3 % (36.0-66.0); PLATELET COUNT, AUTOMATED 349 10^3/uL (150-450); RED BLOOD COUNT 3.65 10^6/uL (4.00-5.40); WHITE BLOOD COUNT 14.9 10^3/uL (4.0-10.0)
[2018-10-15] MEDS ORDERED: GUAI400T9 PO (03:03)
[2018-10-15] MEDS ORDERED: TRAZ-252 PO (03:03)
[2018-10-15] MEDS ORDERED: GABA-1171 PO (03:03)
[2018-10-15] MEDS ORDERED: METF500T4 PO (03:03)
[2018-10-15] MEDS ORDERED: ACET-897 PO (03:03)
[2018-10-15] MEDS ORDERED: DOCU100C17 PO (03:03)
[2018-10-15] MEDS ORDERED: SENN1TAB8 PO (03:03)
[2018-10-15] MEDS ORDERED: LEVO500T3 PO (03:03)
[2018-10-15] MEDS ORDERED: REME15TA PO (03:03)
[2018-10-15] MEDS ORDERED: SUCR1TAB56 PO (03:03)
[2018-10-15] MEDS ORDERED: FERR32TA PO (03:03)
[2018-10-15] MEDS ORDERED: GABA-843 PO (03:03)
[2018-10-15] MEDS ORDERED: FURO20TA2 PO (03:14)
[2018-10-15] MEDS ORDERED: MOM30SS PO (03:14)
[2018-10-15] MEDS ORDERED: SPIR1CAP INH (03:14)
[2018-10-15] MEDS ORDERED: OMEP-221 PO (03:14)
[2018-10-15] MEDS ORDERED: VITMTA PO (03:14)
[2018-10-15] MEDS ORDERED: ASPI-161 PO (03:14)
[2018-10-15] MEDS ORDERED: DULC10SU2 PR (03:14)
[2018-10-15] MEDS ORDERED: PROAAER10 INH (03:14)
[2018-10-15] MEDS ORDERED: FLEEENE12 PR (03:14)
[2018-10-15] MEDS ORDERED: POTA10TA16 PO (03:14)
[2018-10-15] MEDS ORDERED: CIPROFLOXACIN 400 MG in APPROPRIATE DILUENT 1 EA IV ONE (04:30)
[2018-10-15] MEDS ORDERED: CIPR-249 PO (05:43)
[2018-10-15 05:55] VITALS: BP 115/67
--- NOTE | 2018-10-15 07:20 | REP ---
Portable chest, through L 01:00 a.m., single AP view with the patient semi upright: Next line comparisons are the chest CT dated 09/06/2018 and portable chest dated 08/23/2018. There is a right upper lobe lung nodule. There is a left upper lobe lung nodule. On the comparison CT there is a spiculated nodule in each upper lobe. There are surgical clips in the left axilla. The patient is rotated. There are no infiltrates or pleural effusions. Cardiac size is normal. The susana, mediastinum, skeletal structures are unchanged. Impression: Bilateral upper lobe nodules. Surgical clips in the left axilla. No acute cardiopulmonary findings. The patient is rotated. Electronically Signed by Allan Cope MD 10/15/2018 07:12 A
--- NOTE | 2018-10-15 13:00 | ED PDOC ---
Post-Departure Follow-Up dr colvin faxed formal report of cxr for fu Talia Burnham MD Oct 15, 2018 12:59
== END 2018-10-15 06:13 | disposition home or self-care (01) ==
LOC: M ED 01:21
DX: N39.0 Urinary tract infection, site not specified (principal); J44.9 Chronic obstructive pulmonary disease, unspecified; Z79.899 Other long term (current) drug therapy; Z79.84 Long term (current) use of oral hypoglycemic drugs; Z79.82 Long term (current) use of aspirin; F17.210 Nicotine dependence, cigarettes, uncomplicated
CPT/HCPCS: 71045; 80053; 81001; 83605; 85025; 86140; 87086; 96374; 99285; J0744

== ENCOUNTER → 2018-10-15 | Outpatient (REF) ==
[2018-10-15 07:30] LABS: HEMATOCRIT 29.2 % (36.0-47.0); HEMOGLOBIN 9.3 g/dl (12.0-15.5); MEAN CORPUSCULAR HEMOGLOBIN 28.7 pg (27.0-33.0); MEAN CORPUSCULAR HGB CONC 31.8 g/dl (32.0-36.5); MEAN CORPUSCULAR VOLUME 90.1 fl (80.0-96.0); PLATELET COUNT, AUTOMATED 360 10^3/uL (150-450); RED BLOOD COUNT 3.24 10^6/uL (4.00-5.40); WHITE BLOOD COUNT 12.9 10^3/uL (4.0-10.0)
== END ==
LOC: SKLAB5 08:24
PROVIDERS: ATTEND Internal Medicine
DX: D64.9 Anemia, unspecified (principal)

== ENCOUNTER → 2018-10-21 | Outpatient (REF) ==
[~2018-10-21] MED LIST changes: +ACET-897 PO; +CIPR-249 PO; +DOCU100C17 PO; +DULC10SU2 PR; +FLEEENE12 PR; +GUAI400T9 PO; +LEVO500T3 PO; +MOM30SS PO; +OMEP-221 PO; +POTA10TA16 PO; +PROAAER10 INH; +SENN1TAB8 PO; +VITMTA PO
[2018-10-21 09:09] LABS: HEMATOCRIT 30.9 % (36.0-47.0); HEMOGLOBIN 9.6 g/dl (12.0-15.5); MEAN CORPUSCULAR HGB CONC 31.1 g/dl (32.0-36.5); MEAN CORPUSCULAR VOLUME 90.1 fl (80.0-96.0); PLATELET COUNT, AUTOMATED 472 10^3/uL (150-450); RED BLOOD COUNT 3.43 10^6/uL (4.00-5.40); WHITE BLOOD COUNT 7.6 10^3/uL (4.0-10.0)
[2018-10-21 09:30] LABS: BLOOD UREA NITROGEN 21 MG/DL (7-18); CALCIUM LEVEL 8.8 MG/DL (8.8-10.2); CARBON DIOXIDE LEVEL 23 MEQ/L (21-32); CHLORIDE LEVEL 104 MEQ/L (98-107); CREATININE FOR GFR 0.91 MG/DL (0.55-1.30); GLOMERULAR FILTRATION RATE > 60.0 (>39); GLUCOSE, FASTING 309 MG/DL (70-100); POTASSIUM SERUM 4.7 MEQ/L (3.5-5.1); SODIUM LEVEL 136 MEQ/L (136-145)
== END ==
LOC: SKLAB5 07:42
PROVIDERS: ATTEND Internal Medicine
DX: N39.0 Urinary tract infection, site not specified (principal); D64.9 Anemia, unspecified

== ENCOUNTER → 2018-11-26 | Outpatient (REF) ==
[~2018-11-26] MED LIST changes: -GLIM2TAB PO; +GLIM2TAB4 PO; -GLIM4TAB PO; +GLIM4TAB5 PO; +METF-791 PO; -METF500T4 PO
[2018-11-26 08:19] LABS: HEMATOCRIT 33.9 % (36.0-47.0); HEMOGLOBIN 10.3 g/dl (12.0-15.5); MEAN CORPUSCULAR HGB CONC 30.4 g/dl (32.0-36.5); MEAN CORPUSCULAR VOLUME 98.8 fl (80.0-96.0); PLATELET COUNT, AUTOMATED 369 10^3/uL (150-450); RED BLOOD COUNT 3.43 10^6/uL (4.00-5.40); WHITE BLOOD COUNT 8.6 10^3/uL (4.0-10.0)
== END ==
LOC: SKLAB5 10:29
PROVIDERS: ATTEND Internal Medicine
DX: D64.9 Anemia, unspecified (principal)

== ENCOUNTER → 2019-02-08 | Outpatient (CLI) | payer MEDICARE, MEDICAID ==
[~2019-02-08] MED LIST changes: +GLIM2TAB2 PO; -GLIM2TAB4 PO; +GLIM4TAB3 PO; -GLIM4TAB5 PO
--- NOTE | 2019-02-08 12:44 | REP ---
CT chest without contrast: History: Nonspecific abnormal finding of the lung field. Comparison chest CT from September 06, [address] findings: A vascular graft is again seen descending along the right chest wall from the right axillary artery. There are granulomatous calcifications in the spleen. There is a biliary stent in place and pneumobilia is noted in the liver. No adrenal mass lesion is observed. There is no evidence of pleural or pericardial effusion. Extensive vascular calcification is noted. The previously noted spiculated right upper lobe nodule is again seen and appears to have grown somewhat. It measures 11 x 14 mm on axial images today, previously 9 x 11 mm by my measurements. It measures 15 mm in craniocaudal span, previously 13 mm. In the left upper lobe, the previously noted spiculated mass is again seen. There is a curvilinear extension anteriorly from the main mass with evidence of satellite nodule formation. The lesion measures 2.9 cm in oblique anteroposterior dimension by 1.9 cm by 1.8 cm today. Previously, these dimensions were 2.2 x 1.7 x 1.7 cm. On axial images, including the anterior extension to the satellite nodule, the opacity measures 3.6 cm in greatest diameter today. Emphysematous changes are again noted throughout both upper lobes. No other new lung nodule is appreciated. There is a lymph node in the left paratracheal region with short axis dimension of 10 mm x 24 mm. Previously this was 10.6 x 25 mm. This is felt to be unchanged. Several pretracheal lymph nodes are seen which are small and also unchanged. No bony lesion is seen. Impression: There are two suspicious spiculated nodules, one in each upper lobe of the lung. Both of these have increased somewhat in size since September 06, 2018. Stable mediastinal lymph nodes. COPD. Electronically Signed by Aj Spaulding MD 02/08/2019 12:47 P
== END ==
LOC: M RAD 11:17
PROVIDERS: ATTEND Internal Medicine Pulmonary Disease
DX: J44.9 Chronic obstructive pulmonary disease, unspecified (principal); R91.8 Other nonspecific abnormal finding of lung field; Z96.89 Presence of other specified functional implants

== ENCOUNTER → 2019-05-10 | Outpatient (CLI) | payer MEDICARE, MEDICAID ==
[~2019-05-10] MED LIST changes: -GLIM2TAB2 PO; +GLIM2TAB4 PO; -GLIM4TAB3 PO; +GLIM4TAB5 PO
--- NOTE | 2019-05-10 17:12 | REP ---
Clinical: Axillary - femoral graft. Technique: Real time khan scale and color Doppler evaluation of the left lower extremity arterial vasculature using linear high frequency transducer. Findings: The patent right sided axillary - femoral graft is appreciated and patent. Proximal graft velocity at 137 cm/sec with mid graft velocity 124 cm/sec and velocity at the distal anastomosis to the common femoral artery measuring at 126 cm/sec without evidence for graft stenosis or occlusion. The subsequent bifemoral graft is occluded at its origin in the right groin. The right lower extremity demonstrates minimal scattered atheromatous plaquing with biphasic arterial wave patterns and no evidence for stenosis or occlusion. PSV(cm/sec) LEFT Common femoral artery 240 cm/s Profunda femoris artery 97.2 cm/s Proximal superficial femoral artery 89.4 cm/s Mid superficial femoral artery 99.9 cm/s Distal superficial femoral artery 120 cm/s Popliteal artery 76.3 cm/s Proximal LIZETH 93.2 cm/s Tibioperoneal trunk 77.1 cm/s Proximal PERFORMANCE TEST ENGINEER 80.0 cm/s Distal PERFORMANCE TEST ENGINEER 62.0 cm/s Distal LIZETH 84.9 cm/s Impression: 1. Patent right sided axillary - femoral graft with subsequent occlusion of the femoral - femoral graft at its origin in the right groin. 2. No evidence for occlusion or stenosis involving the right lower extremity. Electronically Signed by Marko Younger MD 05/10/2019 05:04 P
== END ==
LOC: M RAD 14:32
PROVIDERS: ATTEND Physician Assistant
DX: I70.291 Other atherosclerosis of native arteries of extremities, right leg (principal); I73.9 Peripheral vascular disease, unspecified

== ENCOUNTER → 2020-01-12 | Outpatient (CLI) | payer MEDICARE, MEDICAID ==
[~2020-01-12] MED LIST changes: +AMLO1TAB24 PO; -AMLO5TAB6 PO; -ASPI81TA85 PO; +ASPI81TA86 PO; -METF-791 PO; +METF-838 PO; -PANT20TA2 PO; +PANT20TA6 PO; +PANT40TA29 PO; -PANT40TA3 PO; +SENN-80 PO; -SENN1TAB8 PO
--- NOTE | 2020-01-12 10:10 | REP ---
INDICATION: ATHSCL MANN ART OF EXT FLAVIO LEG INT CLAUDICATION old left axillary to femoral bypass graft, right axillary-bi femoral bypass graft, left above knee amputation. COMPARISON: 05/10/2019, 08/10/2018. TECHNIQUE: Real time omalley scale and Duplex Doppler evaluation of the bilateral lower extremity arterial vasculature using linear high frequency transducer. FINDINGS: Omalley scale and duplex doppler images demonstrate moderate to severe amounts of atheromatous plaquing, with areas of narrowing but no focal stenosis identified in the right lower extremity arterial structures. There is occlusion of the distal right posterior tibial artery with reconstitution and reversal of flow distally. Doppler interrogation demonstrates diffuse biphasic waveforms throughout the right lower extremity. There are monophasic waveforms in the left common femoral artery and profunda artery. The left proximal and mid superficial femoral artery are occluded, with the remaining vessels of the left lower extremity not present, status post left [id number] amputation. Previous left axillary-femoral bypass graft is noted and occluded. The right axillary-bi femoral bypass graft is seen with the right segment patent in the left segment occluded. A vessel connects the left profunda and the proximal left femoral vein, possibly providing collateral flow. Incidental note is made of nonocclusive and likely chronic thrombus in the right common femoral vein and mid femoral vein. Normal flow velocities are observed throughout the right axillary-bi femoral bypass graft, 73.0 to 135 centimeter/second, with diffuse biphasic waveforms, except for monophasic waveform at the right common femoral artery anastomosis. Peak systolic velocities (cm/sec) Common femoral artery: Right 136; Left 118 Profunda femoris: Right 100; Left 49 SFA (proximal): Right 118; Left occluded SFA (mid): Right 85; Left occluded SFA (distal): Right 56 Popliteal artery: Right 41 LIZETH (prox.): Right 81 Tibioperoneal trunk: Right 58 ASSORTMENT PLANNER (prox.): Right 46 ASSORTMENT PLANNER (distal): Right 24 LIZETH (distal): Right 61 IMPRESSION: Patent right axillary-bi femoral bypass graft, although right segment is patent and left segment is occluded. No hemodynamically significant stenosis in the right lower extremity arterial structures although there is a occlusion of the distal right posterior tibial artery with distal revascularization and reversal of flow. Occlusion left proximal superficial femoral artery. Likely chronic nonocclusive thrombus right common femoral vein and mid femoral vein. <Electronically signed by Allan Omalley > 01/12/20 1007
== END ==
LOC: M RAD 07:54
PROVIDERS: ATTEND Physician Assistant
DX: I70.213 Atherosclerosis of native arteries of extremities with intermittent claudication, bilateral legs (principal)

== ENCOUNTER → 2020-02-16 | Outpatient (CLI) | payer MEDICARE, MEDICAID ==
[~2020-02-16] MED LIST changes: +BREO1INH INH; +FERR325T18 PO; +METF-839 PO; +MIRT-62 PO; -REME15TA PO
--- NOTE | 2020-02-16 09:11 | REP ---
INDICATION: OTHER NON SPECIFIC ABNORMAL FINDING OF LUNG FIELD COMPARISON: 02/08/2019 TECHNIQUE: Axial noncontrast images from the thoracic inlet to the upper abdomen with coronal and sagittal reformations. This CT examination was performed using the following dose reduction techniques: Automated exposure control, adjustment of mA and/or kv according to the patient's size, and use of iterative reconstruction technique. FINDINGS: There is a large spiculated mass in the left upper lobe measuring greater than 4.5 cm maximal diameter with adjacent satellite lesions and extension to the left hilum along with surrounding interstitial prominence. A 2nd lesion in the periphery of the right upper lobe measures 12 mm, demonstrates spiculated margins, but appears relatively stable in size. Progressive advanced emphysematous disease noted. A new area of subpleural fibrosis and interstitial thickening identified along the peripheral basilar portion of the right upper lobe which demonstrates central ill-defined nodular densities measuring up to approximately 13 mm and suspicious for new area of malignancy. No pleural effusion. No pneumothorax. Tracheobronchial tree is relatively patent with bronchiectasis noted. Evidence for mediastinal and hilar adenopathy which is incompletely evaluated due to the lack of intravenous contrast enhancement. Significant atherosclerotic changes to the thoracic aorta and coronary arteries noted without aortic aneurysm or cardiomegaly. No pericardial effusion. Upper abdomen demonstrates suspicious nodular enlargement to the right adrenal gland which may reflect metastatic disease. Stable right renal cyst noted. Pneumobilia and stent at the nino hepatis remains stable. Musculoskeletal structures demonstrate age-related changes without acute osseous abnormality. IMPRESSION: 1. Significantly enlarged left upper lobe malignant appearing mass with extension to the hilum with adenopathy. A 2nd new area of interstitial prominence and central ill-defined nodular changes along the periphery of the right upper lobe concerning for satellite malignant focus. 12 mm lesion in the right apex remains stable. 2. Right adrenal enlargement suspicious for metastatic disease. <Electronically signed by Marko Younger > 02/16/20 0911
== END ==
LOC: M RAD 08:21
PROVIDERS: ATTEND Nurse Practitioner Family
DX: R91.8 Other nonspecific abnormal finding of lung field (principal)

== ENCOUNTER 2020-02-23 15:50 | Inpatient (IN) | payer MEDICARE, MEDICAID ==
[~2020-02-23] VITALS: Ht 121.9 cm; Wt 40.9 kg
[~2020-02-23 15:50] MED LIST changes: -BREO1INH INH; -FERR325T18 PO; -METF-839 PO
--- NOTE | 2020-02-23 17:06 | HPEPDOC ---
General Date of Admission Feb 23, 2020 at 16:24 Date of Service: Feb 23, 2020 Chief Complaint The patient is a 79-year-old female admitted with a reason for visit of Cold Rt Leg. Source: Patient Exam Limitations: No limitations Timing/Duration: Constant Severity: Moderate History of Present Illness Patient is 79 years old female with past medical history of peripheral vascular diseases type 2 diabetes, COPD presented to the hospital for elective right AKA. Patient was seen by Dr. Blanco who recommended a right AKA due to severe peripheral vascular diseases. Of note, patient has left AKA. Of note patient continues to smoke. During my interview patient denied fever, chest pain, shortness of breath, chills, nausea, vomiting, diarrhea or dysuria. Home Medications Scheduled Aspirin (Aspirin EC) 81 Mg Tablet.dr, 81 MG PO DAILY, (Reported) Atorvastatin Calcium (Atorvastatin Calcium) 40 Mg Tab, 40 MG PO QHS, (Reported) Docusate Sodium (Docusate Sodium) 100 Mg Capsule, 100 MG PO DAILY, (Reported) Ferrous Sulfate (Ferrous Sulfate) 325 Mg Tablet, 325 MG PO BID, (Reported) Fluticasone/Vilanterol (Breo Ellipta 100-25 Mcg INH) 1 Each Blst.w.dev, 1 PUFF INH DAILY, (Reported) Furosemide (Furosemide) 20 Mg Tablet, 20 MG PO DAILY, (Reported) Gabapentin (Gabapentin) 100 Mg Capsule, 200 MG PO BID, (Reported) 0800/1200 Gabapentin (Gabapentin) 300 Mg Capsule, 300 MG PO QHS, (Reported) Metformin HCl (Metformin HCl) 500 Mg Tablet, 500 MG PO BID, (Reported) Mirtazapine (Remeron) 15 Mg Tablet, 15 MG PO QHS, (Reported) Multivitamins (Thera M Plus Tablet) 1 Each Tablet, 1 TAB PO DAILY, (Reported) Omeprazole (Omeprazole) 40 Mg Capsule.dr, 40 MG PO DAILY, (Reported) Potassium Chloride (Potassium Chloride) 10 Meq Tab.er.prt, 10 MEQ PO QHS, (Reported) Sennosides (Senna) 8.6 Mg Tablet, 8.6 MG PO QHS, (Reported) Sucralfate (Sucralfate) 1 Gm Tablet, 1 GM PO AC, (Reported) Tiotropium [place] (Spiriva) 18 Mcg Cap.w.dev, 18 MCG INH DAILY, (Reported) Trazodone HCl (Trazodone HCl) 50 Mg Tablet, 25 MG PO QHS, (Reported) Scheduled PRN Albuterol Sulfate (Proair Hfa) 8.5 Gm Hfa.aer.ad, 2 PUFF INH Q4H PRN for SHORTNESS OF BREATH, (Reported) Allergies Coded Allergies: No Known Allergies (Verified , 02/24/06) Past Medical History Medical History 1. Peripheral vascular disease status post left AKA 09/07/2018. 2. Acute on chronic anemia due to chronic and lower GI bleeding as well as postop blood loss from groin angiogram site. 3. Tobacco abuse. 4. Hypercalcemia. 5. Type 2 diabetes mellitus on long-term hypoglycemic agents. At home, she was on glimepiride and metformin. While she was in rehab, she did have some mild hypoglycemia and both metformin and glimepiride were discontinued. 6. Hypertension. 7. Chronic obstructive pulmonary disease (COPD). 8. Recent healthcare acquired pneumonia. 9. Chronic constipation. 10. Apparent spiculated lung mass. Surgical History 1. Tonsillectomy. 2. Bilateral common iliac artery angioplasty and stenting. 3. Upper endoscopy. 4. Multiple colonoscopies. 5. Endoscopic retrograde cholangiopancreatography (ERCP) and biliary stent placement. 6. Right-sided axillofemoral and eeqdl-wj-gtxr femoral/femoral bypass surgeries. Family History I personally reviewed family history and found not pertinent Social History * Smoker: current smoker Alcohol: Denies A-FIB/CHADSVASC A-FIB History Current/History of A-Fib/PAF?: No Current PO Anticoag Therapy: No Review of Systems Constitutional: Denies: Chills Eyes: Denies: Pain, Vision change ENT: Denies: Head Aches Skin: Denies: Rash, Lesions Pulmonary: Denies: Dyspnea Cardiovascular: Denies: Chest Pain Gastrointestinal: Denies: Nausea, Vomiting Genitourinary: Denies: Dysuria, Frequency Hematologic: Denies: Bruising Endocrine: Denies: Polydipsia, Polyphagia Musculoskeletal: Reports: Leg Pain (right leg pain); Denies: Neck Pain, Back Pain Neurological: Denies: Weakness Psych: Reports: Mood Normal Physical Examination General Exam: Positive: Cooperative Eye Exam: Positive: PERRLA ENT Exam: Positive: Atraumatic Neck Exam: Positive: Supple; Negative: JVD Chest Exam: Positive: Clear to auscultation Heart Exam: Positive: Rate Normal Telemetry: Positive: No significant arrhythmia Abdomen Exam: Positive: Normal bowel sounds Extremity Exam: Positive: Other (left AKA); Negative: Cyanosis Skin Exam: Positive: Nl turgor and temperature Neuro Exam: Positive: Normal Gait, Strength at 5/5 X4 ext Psych Exam: Positive: Mental status NL Vital Signs [id number] Assessment/Plan Patient is 79 years old female with past medical history of peripheral vascular diseases type 2 diabetes, COPD presented to the hospital for elective right AKA. Patient was seen by Dr. Blanco who recommended a right AKA due to severe peripheral vascular diseases. Of note, patient has left AKA. Of note patient continues to smoke. During my interview patient denied fever, chest pain, shortness of breath, chills, nausea, vomiting, diarrhea or dysuria. Problems (1) HTN (hypertension) Status: Chronic Problem Text: Blood pressures under control Continue home cardioprotective medication (2) Type 2 diabetes mellitus Status: Chronic Problem Text: Diabetes diet Insulin sliding scale (3) PVD (peripheral vascular disease) Problem Text: Right AKA tomorrow Nothing by mouth after midnight (4) COPD (chronic obstructive pulmonary disease) Status: Chronic Problem Text: Not in acute exacerbation Patient advised to stop smoking (5) Tobacco abuse Status: Chronic Problem Text: See above (6) History of GI bleed Status: Chronic Problem Text: PPI Plan / VTE VTE Prophylaxis Ordered?: Yes CUONG BEAVER DO Feb 23, 2020 17:06
[2020-02-23] MEDS ORDERED: METF-839 PO (17:11)
[2020-02-23] MEDS ORDERED: FERR325T18 PO (17:11)
[2020-02-23] MEDS ORDERED: BREO1INH INH (17:11)
[2020-02-23] MEDS ORDERED: ALBUTEROL 90 MCG/ACT 8GM HFA INHALER INH PRN (17:15)
[2020-02-23] MEDS ORDERED: GLUCAGON INJ 1MG VIAL SC PRN (17:15)
[2020-02-23] MEDS ORDERED: GLUCOSE 4GM CHEW TABLET PO PRN (17:15)
[2020-02-23] MEDS ORDERED: DEXTROSE 50% 50 ML SYRINGE IV PRN (17:15)
[2020-02-23 17:20] VITALS: BP 143/69
[2020-02-23] MEDS: HumaLOG INSULIN (NovoLOG) PER UNIT SC SCH ×2 (17:54→20:47)
[2020-02-23] MEDS: SUCRALFATE 1 GM TAB PO SCH (17:54)
[2020-02-23] MEDS: PERCOCET 5MG/325MG TAB PO PRN (17:55)
[2020-02-23 17:56] LABS: HEMATOCRIT 26.4 % (36.0-47.0); HEMOGLOBIN 7.5 g/dl (12.0-15.5); MEAN CORPUSCULAR HEMOGLOBIN 25.2 pg (27.0-33.0); MEAN CORPUSCULAR HGB CONC 28.4 g/dl (32.0-36.5); MEAN CORPUSCULAR VOLUME 88.6 fl (80.0-96.0); PLATELET COUNT, AUTOMATED 567 10^3/uL (150-450); RED BLOOD COUNT 2.98 10^6/uL (4.00-5.40); WHITE BLOOD COUNT 12.2 10^3/uL (4.0-10.0)
[2020-02-23] MEDS ORDERED: SLF 3 ML SYR IV PRN (18:00)
[2020-02-23 18:25] LABS: INR 1.06
[2020-02-23 18:26] LABS: BLOOD UREA NITROGEN 18 MG/DL (7-18); CALCIUM LEVEL 8.4 MG/DL (8.8-10.2); CARBON DIOXIDE LEVEL 25 MEQ/L (21-32); CHLORIDE LEVEL 107 MEQ/L (98-107); CREATININE FOR GFR 0.64 MG/DL (0.55-1.30); GLOMERULAR FILTRATION RATE > 60.0 (>32); GLUCOSE, FASTING 169 MG/DL (70-100); SODIUM LEVEL 138 MEQ/L (136-145)
[2020-02-23 20:19] VITALS: BP 151/66
[2020-02-23] MEDS: POTASSIUM CHLORIDE 10 MEQ SR TABLET PO SCH (20:44)
[2020-02-23] MEDS: FERROUS SULFATE 325MG TAB PO SCH (20:45)
[2020-02-23] MEDS: SENNA 8.6 MG TAB (SENOKOT) PO SCH (20:45)
[2020-02-23] MEDS: MIRTAZAPINE 15 MG TAB PO SCH (20:45)
[2020-02-23] MEDS: GABAPENTIN 300 MG CAP PO SCH (20:45)
[2020-02-23] MEDS: ATORVASTATIN 20 MG TAB PO SCH (20:45)
[2020-02-23] MEDS: ACETAMINOPHEN TAB 650MG DOSE (2X325MG) PO PRN (20:46)
[2020-02-23] MEDS: HEPARIN SOD (PORCINE) 5000UNITS/ML 1ML VIAL/SYRINGE SQ SCH (20:47)
[2020-02-23] MEDS: traZODone 25MG PER 1/2 TABLET PO SCH (20:53)
[2020-02-23] MEDS: SLF 3 ML SYR IV SCH (22:00)
[2020-02-23 22:40] VITALS: BP 149/69
[2020-02-23 22:55] VITALS: BP_SYST 151; BP_SYST 154; BP_DIAS 67; BP_DIAS 69
[2020-02-23 23:55] VITALS: BP 151/67
[2020-02-24] VITALS (13 sets, daily range): BP systolic 141–160; BP diastolic 7–73
[2020-02-24] MEDS: PERCOCET 5MG/325MG TAB PO PRN ×4 (01:56→20:45)
[2020-02-24 05:10] LABS: HEMATOCRIT 35.1 % (36.0-47.0); MEAN CORPUSCULAR HEMOGLOBIN 27.4 pg (27.0-33.0); MEAN CORPUSCULAR HGB CONC 31.9 g/dl (32.0-36.5); MEAN CORPUSCULAR VOLUME 85.8 fl (80.0-96.0); PLATELET COUNT, AUTOMATED 518 10^3/uL (150-450); RED BLOOD COUNT 4.09 10^6/uL (4.00-5.40); WHITE BLOOD COUNT 11.9 10^3/uL (4.0-10.0)
[2020-02-24] MEDS: SLF 3 ML SYR IV SCH ×3 (05:18→22:40)
[2020-02-24 05:22] LABS: HEMOGLOBIN 11.2 g/dl (12.0-15.5)
[2020-02-24 05:36] LABS: BLOOD UREA NITROGEN 14 MG/DL (7-18); CALCIUM LEVEL 8.4 MG/DL (8.8-10.2); CARBON DIOXIDE LEVEL 24 MEQ/L (21-32); CHLORIDE LEVEL 107 MEQ/L (98-107); CREATININE FOR GFR 0.47 MG/DL (0.55-1.30); GLOMERULAR FILTRATION RATE > 60.0 (>32); GLUCOSE, FASTING 159 MG/DL (70-100); MAGNESIUM LEVEL 2.1 MG/DL (1.8-2.4); POTASSIUM SERUM 4.3 MEQ/L (3.5-5.1); SODIUM LEVEL 138 MEQ/L (136-145)
[2020-02-24] MEDS: TIOTROPIUM INHALER/CAPSULE (SPIRIVA) INH SCH (07:18)
[2020-02-24] MEDS: HumaLOG INSULIN (NovoLOG) PER UNIT SC SCH ×4 (07:30→21:00)
--- NOTE | 2020-02-24 07:48 | CR.PDOC ---
General Date of Consultation: Feb 23, [address] Morton HISTORY OF PRESENT ILLNESS: The patient is an 79-year-old female with history of distal aortic B ALFONSO occlusion and failed L ax-fem bypass but h/o patent R ax- fem bypass and R to L femfem bypass, but the fem-fem bypass had occluded despite multiple revisions, status post left AKA. The patient is return to the clinic 02/23/20 for routine scheduled appointment. She states she has not been feeling well since this morning. She states she suddenly woke up with severe pain in the right lower extremity, worse behind the knee. She states from the knee down her leg has been cool. She states it is achy throbbing pain. The right foot has appeared slightly purplish. She felt weak in the leg when trying to get out of bed. She is concerned because she states symptoms began the same way in her left leg. Patient is on aspirin/statin. She is not on Plavix or any anticoagulation related to previous history of GI bleed. She has previous history of GI bleed with TPA. Unfortunately the patient has continued to smoke. ALLERGIES: Please see below. HOME MEDICATIONS: Please see below. PAST MEDICAL HISTORY: Hypertension Diabetes Lung Disease Hypercholesterolemia DVT LLE History of GI bleed PAST SURGICAL HISTORY: Tonsillectomy Multiple lower extremity vascular interventions. EGD/colonoscopy left AKA FAMILY HISTORY: BROTHER -, ALS Father: due to Heart Disease. Mother: due to Lung Cancer. Sister 1:Lung Cancer SOCIAL HISTORY: Long-standing history of tobacco use. REVIEW OF SYSTEMS: As noted in HPI otherwise 11 point review systems unremarkable. PHYSICAL EXAMINATION: Const: Thin-appearing, No signs of apparent distress present. Head/Face: Normal on inspection. ENMT: Moist because membranes Neck: Supple, Resp: No wheezing. Clear to auscultation bilaterally. CV: Rate is regular. Rhythm is regular. The right foot is cool to touch. Slightly purplish discoloration of the toes. I am unable to Doppler a DP or PT signal in the right lower extremity. I am able to get a faint monophasic popliteal, I am able to get monophasic signal right femoral. Abdomen: Soft, NT, ND, no guarding, rigidity, rebound. No organomegaly or p alpable mass/aneurysm. Lymph: No palpable or visible regional lymphadenopathy. Musculo: The patient is in a wheelchair Skin:No rashes or lesions Neuro:Alert and oriented x3 Psych: Pleasant and cooperative Right lower extremity arterial ultrasound FINDINGS: Ankle brachial index could not be measured due to inaudible flow. The right- sided axillofemoral bypass graft and fem-fem crossover segment are occluded on today's study. Minimal revascularize trickle flow is seen at the right superficial femoral artery. The common femoral artery and profundal femoral artery are occluded on the right. No detectable flow is seen in the proximal posterior tibial artery on the right. Monophasic waveforms are noted throughout the patent right lower extremity arterial vessels. Velocities below 9 centimeters/second were visualized. Right lower extremity arterial Doppler velocity chart: Right axillofemoral bypass graft occluded Right fem-fem crossover graft occluded Right COLOR BUFFER occluded Profundal occluded Proximal SFA revascularized 8.5 cm/S Mid SFA 6.3 Distal SFA 8.0 Popliteal 3.5/2.5 Proximal LIZETH 3.5 Tibial-peroneal trunk 2.1 Proximal [employer] occluded, no detectable flow Distal [employer]IST occluded Distal LIZETH 3.9 IMPRESSION: Occluded right axillofemoral and fem-fem crossover graft. Occluded cyst COLOR BUFFER and profundal and posterior tibial arteries on the right. Monophasic waveforms with very slow for all flow. <Electronically signed by Daniel Spaulding > 02/23/20 8143 ASSESSMENT/PLAN: Atherosclerosis wainwright vessels lower extremities, history of distal aortic B ALFONSO occlusion and failed L ax-fem bypass but h/o patent R ax-fem bypass and R to L femfem bypass, but the fem-fem bypass had occluded despite multiple revisions, status post left AKA. Patient presented to the clinic 02/23/20 with coolness of the right lower extremity. A stat ultrasound was requested indicating occluded right axillofemoral and femoral-femoral crossover graft. These findings were reviewed by myself and Dr. Morton in the ultrasound department as soon as the patient finished the study. Dr. Morton had a discussion with the patient in the office. It was discussed with the patient and her [id number] that there are no additional options for revascularization. The patient is not a candidate for TPA related to previous history of GI bleed. The patient is unable to be placed on anticoagulant long-term secondary to previous GI bleed. Dr. Morton discussed with the patient that we could admit the patient for heparin drip, closely monitor for any bleeding, and see if there was any improvement. Dr. Morton also discussed with the patient that she was high risk for limb loss. The patient and her daughter in law discussed potential options and subsequently the patient stated she did not wish to try heparin drip and requested amputation. Amputation was discussed with the patient as per Dr. Morton, right AKA. The procedure, risks, benefits and alternatives were extensively discussed. Informed consent is obtained and placed with the chart. His fusion consent is obtained and placed with the chart. Subsequently admission was arranged with the hospitalist service for additional pain control overnight. Vital Signs/I&O Vital Signs Date Time Temp Pulse Resp B/P (MAP) Pulse Ox O2 Delivery O2 Flow Rate FiO2 02/24/20 04:00 97.3 84 18 141/66 (91) 95 Room Air I&O- Last 24 Hours up to 6 AM 02/24/20 05:59 Intake Total 2000 ml Output Total 0 ml Balance 2000 ml Laboratory Data Labs 24H Laboratory Tests 2 02/23/20 17:03: Coronavirus (COVID-19)(PCR) NEGATIVE 02/23/20 17:36: Bedside Glucose (Misc Panel) 165H 02/23/20 17:43: Nucleated Red Blood Cells % (auto) 0.0, Prothrombin Time 14.0, Prothromb Time International Ratio 1.06, Anion Gap 6L, Glomerular Filtration Rate > 60.0, Calcium Level 8.4L 02/23/20 20:02: Bedside Glucose (Misc Panel) 257H 02/24/20 04:36: Nucleated Red Blood Cells % (auto) 0.2H, Anion Gap 7L, Glomerular Filtration Rate > 60.0, Calcium Level 8.4L, Magnesium Level 2.1 CBC/BMP Laboratory Tests 02/23/20 17:43 02/24/20 04:36 Allergies Coded Allergies: No Known Allergies (Verified , 02/24/06) Home Medications Scheduled Aspirin (Aspirin EC) 81 Mg Tablet.dr, 81 MG PO DAILY, (Reported) Atorvastatin Calcium (Atorvastatin Calcium) 40 Mg Tab, 40 MG PO QHS, (Reported) Docusate Sodium (Docusate Sodium) 100 Mg Capsule, 100 MG PO DAILY, (Reported) Ferrous Sulfate (Ferrous Sulfate) 325 Mg Tablet, 325 MG PO BID, (Reported) Fluticasone/Vilanterol (Breo Ellipta 100-25 Mcg INH) 1 Each Blst.w.dev, 1 PUFF INH DAILY, (Reported) Furosemide (Furosemide) 20 Mg Tablet, 20 MG PO DAILY, (Reported) Gabapentin (Gabapentin) 100 Mg Capsule, 200 MG PO BID, (Reported) 0800/1200 Gabapentin (Gabapentin) 300 Mg Capsule, 300 MG PO QHS, (Reported) Metformin HCl (Metformin HCl) 500 Mg Tablet, 500 MG PO BID, (Reported) Mirtazapine (Remeron) 15 Mg Tablet, 15 MG PO QHS, (Reported) Multivitamins (Thera M Plus Tablet) 1 Each Tablet, 1 TAB PO DAILY, (Reported) Omeprazole (Omeprazole) 40 Mg Capsule.dr, 40 MG PO DAILY, (Reported) Potassium Chloride (Potassium Chloride) 10 Meq Tab.er.prt, 10 MEQ PO QHS, (Reported) Sennosides (Senna) 8.6 Mg Tablet, 8.6 MG PO QHS, (Reported) Sucralfate (Sucralfate) 1 Gm Tablet, 1 GM PO AC, (Reported) Tiotropium Mcintosh (Spiriva) 18 Mcg Cap.w.dev, 18 MCG INH DAILY, (Reported) Trazodone HCl (Trazodone HCl) 50 Mg Tablet, 25 MG PO QHS, (Reported) Scheduled PRN Albuterol Sulfate (Proair Hfa) 8.5 Gm Hfa.aer.ad, 2 PUFF INH Q4H PRN for SHORTNESS OF BREATH, (Reported) Sunshine Allison Feb 24, 2020 07:48
[2020-02-24] MEDS: HEPARIN SOD (PORCINE) 5000UNITS/ML 1ML VIAL/SYRINGE SQ SCH ×2 (07:55→21:00)
[2020-02-24] MEDS: ASPIRIN 81 MG ENTERIC TAB PO SCH (09:00)
[2020-02-24] MEDS ORDERED: ENOXAPARIN 40MG/0.4ML SYRINGE (J1650 PER 10MG) SC SCH (09:00)
[2020-02-24] MEDS: FUROSEMIDE 20 MG TAB PO SCH (09:09)
[2020-02-24] MEDS: GABAPENTIN 100 MG CAP PO SCH ×2 (09:09→12:01)
[2020-02-24] MEDS: SUCRALFATE 1 GM TAB PO SCH ×3 (09:09→17:10)
[2020-02-24] MEDS: OMEPRAZOLE 20 MG CAP PO SCH (09:09)
[2020-02-24] MEDS: DOCUSATE SODIUM 100MG CAPSULE PO SCH (09:10)
[2020-02-24] MEDS: MULTIVITAMINS/MINERALS THERAP 1 TAB PO SCH (09:10)
[2020-02-24] MEDS: FERROUS SULFATE 325MG TAB PO SCH ×2 (09:10→20:43)
--- NOTE | 2020-02-24 11:11 | IPNPDOC ---
Text Note Date of Service The patient was seen on 02/24/20. NOTE Subjective: No any acute events overnight. Patient continues to complain of the right leg pain Objective: GENERAL APPEARANCE: NAD HEENT: no scleral icterus, no JVD, EOMI CARDIOVASCULAR: S1S2 LUNGS: Diminished lung sounds bilaterally ABDOMEN: soft & not tender w palpitation MUSCULOSKELETAL: No pulsation of dorsal pedis of the right foot, foot looks cyanotic. Left AKA INTEGUMENT: no generalized palor NEUROLOGICAL: cranial nerve function from 2-12 intact intact, follows commands, speech not dysarthric Assessment/Plan Patient is 79 years old female with past medical history of peripheral vascular diseases type 2 diabetes, COPD presented to the hospital for elective right AKA. Patient was seen by Dr. Blanco who recommended a right AKA due to severe peripheral vascular diseases. Of note, patient has left AKA. Of note patient continues to smoke. During my interview patient denied fever, chest pain, shortness of breath, chills, nausea, vomiting, diarrhea or dysuria. Problems (1) HTN (hypertension) Blood pressures under control Continue home cardioprotective medication (2) Type 2 diabetes mellitus Diabetes diet Insulin sliding scale (3) PVD (peripheral vascular disease) Right AKA tomorrow Nothing by mouth after midnight (4) COPD (chronic obstructive pulmonary disease) Not in acute exacerbation Patient advised to stop smoking (5) Tobacco abuse See above (6) History of GI bleed PPI Anemia of chronic diseases Also patient has a history of multiple GI bleed On the admission hemoglobin 7.5, patient received 2 units of blood Hemoglobin today 11.9 VS,Alo, I+O VS, Tone, I+O Laboratory Tests 02/23/20 17:43 02/24/20 04:36 Vital Signs Date Time Temp Pulse Resp B/P (MAP) Pulse Ox O2 Delivery O2 Flow Rate FiO2 02/24/20 09:41 18 Room Air 02/24/20 08:00 97.5 87 147/73 (97) 93 I&O- Last 24 Hours up to 6 AM 02/24/20 06:00 Intake Total 2000 ml Output Total 0 ml Balance 2000 ml CUONG BEAVER DO Feb 24, 2020 11:11
[2020-02-24] MEDS ORDERED: MORPHINE 2 MG/ML 1ML VIAL (J2270) IV ONE (15:30)
--- NOTE | 2020-02-24 17:16 | IPNPDOC ---
Date Seen The patient was seen on 02/24/20. Progress Note Patient seen and examined this morning. We again went over the plan for a right AKA today, consent obtained in clinic yesterday. Ideally, we would attempt a revascularization and declotting of her right axilla bypass, but the patient cannot have any anticoagulation due to recurrent history of severe upper and lower GI bleeds. Therefore, attempts at thrombectomy would likely be met with rethrombosis since we're not able to use anticoagulation. After long discussion with the patient, I initially suggested we could try a heparin drip and stop it if any signs of GI bleed occurred, but the patient did not want to take the risk. She has so much pain in her leg that she felt the best option was above- knee amputation. We don't think this unlikely, since the patient has a left above-knee amputation, but is at her request that we proceed. Today, when I see the patient, her leg looks worse than yesterday. It is more cyanotic above the knee than it was. I discussed with her that I am not sure and above-knee amputation will heal due to limited femoral flow and likely no profunda flow, but that we would possibly try to thread a thrombectomy balloon up through her superficial femoral artery during the amputation. Perhaps we could pull out enough clot to help the amputation to heal. However, her prognosis is poor based on her condition currently. For now, her hope is to get her out of pain as she is in constant agony with ischemia in the right lower extremity. She is hopeful that we can proceed as soon as possible. As soon as the hours ready this afternoon, we will proceed with right above-knee amputation. VS, I&O, 24H, Fishbone Vital Signs/I&O Vital Signs Date Time Temp Pulse Resp B/P (MAP) Pulse Ox O2 Delivery O2 Flow Rate FiO2 02/24/20 16:00 96.9 82 18 144/64 (90) 94 Room Air I&O- Last 24 Hours up to 6 AM 02/24/20 06:00 Intake Total 2000 ml Output Total 0 ml Balance 2000 ml Laboratory Data 24H LABS Laboratory Tests 2 02/23/20 17:36: Bedside Glucose (Misc Panel) 165H 02/23/20 17:43: Nucleated Red Blood Cells % (auto) 0.0, Prothrombin Time 14.0, Prothromb Time International Ratio 1.06, Anion Gap 6L, Glomerular Filtration Rate > 60.0, Calcium Level 8.4L 02/23/20 20:02: Bedside Glucose (Misc Panel) 257H 02/24/20 04:36: Nucleated Red Blood Cells % (auto) 0.2H, Anion Gap 7L, Glomerular Filtration Rate > 60.0, Calcium Level 8.4L, Magnesium Level 2.1 02/24/20 11:30: Bedside Glucose (Misc Panel) 140H 02/24/20 16:32: Bedside Glucose (Misc Panel) 149H CBC/BMP Laboratory Tests 02/23/20 17:43 02/24/20 04:36 JOSE J LOVING MD Feb 24, 2020 17:16
[2020-02-24] MEDS ORDERED: MIDAZOLAM INJ 2MG/2ML VIAL (J2250 PER 1MG) As Ordered ONE (17:25)
[2020-02-24] MEDS ORDERED: fentaNYL 250 MCG/5 ML INJECTION (J3010) As Ordered ONE (17:25)
[2020-02-24] MEDS ORDERED: LIDOCAINE 2% 100MG/5ML SDV (FOR ANES.) As Ordered ONE (17:25)
[2020-02-24] MEDS ORDERED: propofoL 200 MG/20 ML VIAL As Ordered ONE (17:26)
[2020-02-24] MEDS ORDERED: ROCURONIUM BROMIDE 50 MG/5 ML VIAL As Ordered ONE (17:26)
[2020-02-24] MEDS ORDERED: LIDOCAINE 2% W/EPINEPHRINE 20ML VIAL **PRES FREE As Ordered ONE (17:49)
[2020-02-24] MEDS ORDERED: ceFAZolin 2 GM/D5W 50 ML IV BAG (J0690 PER 500MG) As Ordered ONE (18:08)
[2020-02-24] MEDS ORDERED: ePHEDrine SULFATE 25 MG/5 ML(5MG/ML) SYRINGE As Ordered ONE (18:12)
[2020-02-24] MEDS ORDERED: PHENYLephrine HCL 500 MCG/5 ML (100MCG/ML) SYRINGE (J2370) As Ordered ONE ×2 (18:12→19:03)
[2020-02-24] MEDS ORDERED: SUGAMMADEX SODIUM 500 MG/5 ML VIAL (BRIDION) As Ordered ONE (18:34)
[2020-02-24] MEDS ORDERED: ONDANSETRON 4MG/2ML VIAL As Ordered ONE (18:34)
[2020-02-24] MEDS ORDERED: ACETAMINOPHEN 1000MG 100ML IV BTL (OFIRMEV) (J0131 PER 10MG) As Ordered ONE (19:25)
--- NOTE | 2020-02-24 19:50 | ROOPDOC ---
[facility] Report Of Operation Report of Operation DATE OF PROCEDURE: 02/24/20 PREPROCEDURE DIAGNOSES: 1. Atherosclerosis the [place] arteries with occlusion right axillofemoral bypass and right lower extremity acute on chronic ischemia POSTPROCEDURE DIAGNOSES: Same PROCEDURE: 1. Right above-knee amputation 2. Right superficial femoral artery thromboembolectomy SURGEON: Cande Morton MD ANESTHESIA: Gen. anesthesia and local INDICATION FOR PROCEDURE: This a very pleasant 79-year-old patient with a long- standing history of tobacco abuse who still smokes avidly, status post a left above-knee amputation after failed redo left lower extremity attempt at revascularization with Dr. Martin last year, long-standing history of upper and lower GI bleeds with acute and chronic anemia leading to inability to use any type of anticoagulation or Plavix to maintain vascular patency, who presented with acute on chronic right lower extremity ischemia and a nonviable limb. Although we did discuss in clinic trying to possible use heparin to see if we can improve any flow to the lower extremity, the patient did not feel comfortable with this as she has had so many problems with severe GI bleeds in the past. We also new that this would likely be unsuccessful without a full revascularization and full anticoagulation to maintain any patency we achieved. The patient requested a right above-knee amputation. Risks benefits alternatives were explained and she was agreeable to proceed. Informed consent was obtained. REPORT OF OPERATION: The patient was taken to the OR in relatively stable condition. General anesthesia and antibiotics were administered without complication. Her right lower extremity was prepped and draped in a sterile fashion. It was cool and mottled to just above the knee. A timeout was performed. A fishmouth incision was made at the distal thigh and carried down to the subcutaneous tissue Bovie cautery. Vascular structures were suture ligated and divided. We continued or dissection down to the popliteal artery and vein. They were suture ligated and divided. We removed the periosteum from the proximal femur and did a high ligation of the femur with a slight anterior bevel. We then used Bovie cautery to complete the posterior flap and sent the leg for pathology. We then irrigated with copious amounts of saline. A rasp was used to smooth the bone. The artery was then examined. The tie was removed and significant near occlusive plaque and thrombus were noted. I was able to remove the plaque from the cut superficial femoral artery and then I was able to pass Aureliano balloon proximal. This was done over 6 passes to remove as much thrombus from the femoral and superficial femoral arteries possible. Following this, there was arterial flow through the SFA, although it was a bit sluggish. However, this is better than our initial finding of no flow and near occlusive plaque with thrombus. Next, we suture ligated the distal SFA again. We irrigated again with copious saline. The deep fascia layers were approximated with [id number] Vicryl sutures. Superficial muscle fascial layers were approximated with [id number] Vicryl sutures. The superficial fascia along the incision was closed with [id number] Vicryl sutures making sure there were in the closure. We then irrigated the edge with saline. The skin edges approximated with nylon mattress sutures. The skin was then closed in between the sutures with domo. The incision was clean and dry. Xeroform, fluffs, kerlix, Brannon wrap were used to dress the right stump. The patient was then allowed to awaken and taken to recovery in stable condition. ESTIMATED BLOOD LOSS: Approximately 20 mL. COMPLICATIONS: None. PLAN: We will monitor the stump closely. The patient has extremely limited flow to the right lower extremity and I'm still worried that she will not have enough perfusion to heal even an above-knee amputation. However, after thromboembolectomy, I am hopeful she will have some improvement in flow, possibly enough to heal the stump. She has a challenging recovery of head of her, and her overall prognosis is fairly poor. Okay to resume preoperative diet and medications per the hospitalist team. Analgesia prn. Activity as tolerated. PT/OT/ARU consult. Encourage high-protein diet intake to help with healing. No nicotine replacement, as the patient has such limited perfusion to her stump. We appreciate the opportunity to participate in care of this patient. CANDE MORTON MD Feb 24, 2020 19:50
[2020-02-24] MEDS: POTASSIUM CHLORIDE 10 MEQ SR TABLET PO SCH (20:43)
[2020-02-24] MEDS: GABAPENTIN 300 MG CAP PO SCH (20:45)
[2020-02-24] MEDS: ATORVASTATIN 20 MG TAB PO SCH (20:45)
[2020-02-24] MEDS: traZODone 25MG PER 1/2 TABLET PO SCH (20:46)
[2020-02-24] MEDS: MIRTAZAPINE 15 MG TAB PO SCH (20:46)
[2020-02-24] MEDS: SENNA 8.6 MG TAB (SENOKOT) PO SCH (21:00)
[2020-02-24] MEDS ORDERED: oxyCODONE 5MG TAB PO PRN (22:15)
[2020-02-24] MEDS ORDERED: ONDANSETRON 4MG/2ML VIAL IV PRN (22:15)
[2020-02-24] MEDS ORDERED: LR 1,000 ML IV SCH (22:15)
[2020-02-24] MEDS ORDERED: MORPHINE 2 MG/ML 1ML VIAL (J2270) IV PRN (22:15)
[2020-02-24] MEDS ORDERED: fentaNYL 100 MCG/2 ML INJECTION (J3010) IV PRN (22:15)
[2020-02-25] VITALS (8 sets, daily range): BP systolic 117–149; BP diastolic 57–67
[2020-02-25] MEDS: PERCOCET 5MG/325MG TAB PO PRN ×2 (05:30→21:07)
[2020-02-25] MEDS: SLF 3 ML SYR IV SCH ×3 (05:30→21:10)
[2020-02-25] MEDS ORDERED: ceFAZolin SOD 2 GM in IV 1 EA IV ONE (06:00)
[2020-02-25 06:26] LABS: HEMOGLOBIN 11.6 g/dl (12.0-15.5); MEAN CORPUSCULAR HEMOGLOBIN 26.3 pg (27.0-33.0); MEAN CORPUSCULAR HGB CONC 30.5 g/dl (32.0-36.5); MEAN CORPUSCULAR VOLUME 86.2 fl (80.0-96.0); PLATELET COUNT, AUTOMATED 477 10^3/uL (150-450); RED BLOOD COUNT 4.41 10^6/uL (4.00-5.40); WHITE BLOOD COUNT 12.5 10^3/uL (4.0-10.0)
[2020-02-25 06:51] LABS: BLOOD UREA NITROGEN 15 MG/DL (7-18); CALCIUM LEVEL 8.1 MG/DL (8.8-10.2); CARBON DIOXIDE LEVEL 24 MEQ/L (21-32); CHLORIDE LEVEL 105 MEQ/L (98-107); CREATININE FOR GFR 0.43 MG/DL (0.55-1.30); GLOMERULAR FILTRATION RATE > 60.0 (>32); GLUCOSE, FASTING 100 MG/DL (70-100); POTASSIUM SERUM 4.4 MEQ/L (3.5-5.1); SODIUM LEVEL 136 MEQ/L (136-145)
[2020-02-25] MEDS: TIOTROPIUM INHALER/CAPSULE (SPIRIVA) INH SCH (07:12)
[2020-02-25] MEDS: HumaLOG INSULIN (NovoLOG) PER UNIT SC SCH ×4 (07:30→21:00)
[2020-02-25] MEDS: FERROUS SULFATE 325MG TAB PO SCH ×2 (08:18→21:07)
[2020-02-25] MEDS: GABAPENTIN 100 MG CAP PO SCH ×2 (08:18→11:58)
[2020-02-25] MEDS: MULTIVITAMINS/MINERALS THERAP 1 TAB PO SCH (08:18)
[2020-02-25] MEDS: ASPIRIN 81 MG ENTERIC TAB PO SCH (08:18)
[2020-02-25] MEDS: HEPARIN SOD (PORCINE) 5000UNITS/ML 1ML VIAL/SYRINGE SQ SCH ×2 (08:18→21:05)
[2020-02-25] MEDS: OMEPRAZOLE 20 MG CAP PO SCH (08:18)
[2020-02-25] MEDS: SUCRALFATE 1 GM TAB PO SCH ×3 (08:18→17:33)
[2020-02-25] MEDS: DOCUSATE SODIUM 100MG CAPSULE PO SCH (08:19)
--- NOTE | 2020-02-25 09:14 | IPNPDOC ---
Text Note Date of Service The patient was seen on 02/25/20. NOTE Vascular surgery. Dr. Morton The patient is a 79-year-old female with a long-standing history of tobacco abuse who still smokes avidly, status post a left above-knee amputation after failed redo left lower extremity attempt at revascularization with Dr. Martin last year, long-standing history of upper and lower GI bleeds with acute and chronic anemia leading to inability to use any type of anticoagulation or Plavix to maintain vascular patency, who presented with acute on chronic right lower extremity ischemia and a nonviable limb. Although we did discuss in clinic trying to possible use heparin to see if we can improve any flow to the lower extremity, the patient did not feel comfortable with this as she has had so many problems with severe GI bleeds in the past. We also new that this would likely be unsuccessful without a full revascularization and full anticoagulation to maintain any patency we achieved. The patient requested a right above-knee amputation. Postop day 1 status post right above-knee amputation, right SFA thrombectomy. The patient reports her pain is much better today. She is resting in bed comfortably, sitting up. She states she had breakfast. The patient's postoperative bandage is intact, I will leave this in place until later this afternoon. Thigh area above the bandage does feel warm to touch, pink. Continue with pain control Continue to closely monitor healing. Continue to encourage protein intake for healing. PT/OT/, possibly consider ARU. No nicotine replacement, as the patient has such limited perfusion to her stump. Will continue to follow. VS,Fishbone, I+O VS, Fishbone, I+O Laboratory Tests 02/25/20 04:56 Vital Signs Date Time Temp Pulse Resp B/P (MAP) Pulse Ox O2 Delivery O2 Flow Rate FiO2 02/25/20 07:48 98.8 91 18 117/57 (77) 96 Room Air I&O- Last 24 Hours up to 6 AM 02/25/20 05:59 Intake Total 900 ml Output Total 20 ml Balance 880 ml Sunshine Allison Feb 25, 2020 09:14
--- NOTE | 2020-02-25 12:30 | IPNPDOC ---
Text Note Date of Service The patient was seen on 02/25/20. NOTE Subjective: No any acute events overnight. Patient tolerates procedure well. Objective: GENERAL APPEARANCE: NAD HEENT: no scleral icterus, no JVD, EOMI CARDIOVASCULAR: S1S2 LUNGS: Diminished lung sounds bilaterally ABDOMEN: soft & not tender w palpitation MUSCULOSKELETAL: Right AKA , Left AKA Assessment/Plan Patient is 79 years old female with past medical history of peripheral vascular diseases type 2 diabetes, COPD presented to the hospital for elective right AKA. Patient was seen by Dr. Blanco who recommended a right AKA due to severe peripheral vascular diseases. Of note, patient has left AKA. Of note patient continues to smoke. During my interview patient denied fever, chest pain, shortness of breath, chills, nausea, vomiting, diarrhea or dysuria. Problems (1) HTN (hypertension) Blood pressures under control Continue home cardioprotective medication (2) Type 2 diabetes mellitus Diabetes diet Insulin sliding scale (3) PVD (peripheral vascular disease)/ status post right AKA Pain management (4) COPD (chronic obstructive pulmonary disease) Not in acute exacerbation Patient advised to stop smoking (5) Tobacco abuse See above (6) History of GI bleed PPI Anemia of chronic diseases Also patient has a history of multiple GI bleed Hemoglobin stable today VS,Fishbone, I+O VS, Fishbone, I+O Laboratory Tests 02/25/20 04:56 Vital Signs Date Time Temp Pulse Resp B/P (MAP) Pulse Ox O2 Delivery O2 Flow Rate FiO2 02/25/20 11:44 98.3 86 18 144/67 (92) 94 Room Air I&O- Last 24 Hours up to 6 AM 02/25/20 06:00 Intake Total 900 ml Output Total 20 ml Balance 880 ml CUONG BEAVER DO Feb 25, 2020 12:30
[2020-02-25] MEDS: SENNA 8.6 MG TAB (SENOKOT) PO SCH (21:05)
[2020-02-25] MEDS: GABAPENTIN 300 MG CAP PO SCH (21:07)
[2020-02-25] MEDS: MIRTAZAPINE 15 MG TAB PO SCH (21:07)
[2020-02-25] MEDS: ATORVASTATIN 20 MG TAB PO SCH (21:08)
[2020-02-25] MEDS: POTASSIUM CHLORIDE 10 MEQ SR TABLET PO SCH (21:09)
[2020-02-25] MEDS: traZODone 25MG PER 1/2 TABLET PO SCH (21:24)
[2020-02-26] VITALS: BP 131/60
[2020-02-26 04:00] VITALS: BP 140/64
[2020-02-26 05:23] LABS: HEMATOCRIT 38.3 % (36.0-47.0); HEMOGLOBIN 12.1 g/dl (12.0-15.5); MEAN CORPUSCULAR HEMOGLOBIN 26.8 pg (27.0-33.0); MEAN CORPUSCULAR HGB CONC 31.6 g/dl (32.0-36.5); MEAN CORPUSCULAR VOLUME 84.9 fl (80.0-96.0); PLATELET COUNT, AUTOMATED 539 10^3/uL (150-450); RED BLOOD COUNT 4.51 10^6/uL (4.00-5.40); WHITE BLOOD COUNT 12.7 10^3/uL (4.0-10.0)
[2020-02-26 05:45] LABS: BLOOD UREA NITROGEN 15 MG/DL (7-18); CALCIUM LEVEL 8.1 MG/DL (8.8-10.2); CARBON DIOXIDE LEVEL 26 MEQ/L (21-32); CHLORIDE LEVEL 105 MEQ/L (98-107); CREATININE FOR GFR 0.44 MG/DL (0.55-1.30); GLOMERULAR FILTRATION RATE > 60.0 (>32); GLUCOSE, FASTING 151 MG/DL (70-100); MAGNESIUM LEVEL 2.1 MG/DL (1.8-2.4); POTASSIUM SERUM 3.9 MEQ/L (3.5-5.1); SODIUM LEVEL 137 MEQ/L (136-145)
[2020-02-26] MEDS: SLF 3 ML SYR IV SCH ×3 (07:00→20:40)
[2020-02-26] MEDS: HumaLOG INSULIN (NovoLOG) PER UNIT SC SCH ×4 (07:30→20:29)
[2020-02-26 07:58] VITALS: BP 138/69
[2020-02-26] MEDS: OMEPRAZOLE 20 MG CAP PO SCH (08:43)
[2020-02-26] MEDS: ASPIRIN 81 MG ENTERIC TAB PO SCH (08:43)
[2020-02-26] MEDS: GABAPENTIN 100 MG CAP PO SCH ×2 (08:43→12:22)
[2020-02-26] MEDS: FERROUS SULFATE 325MG TAB PO SCH ×2 (08:43→20:31)
[2020-02-26] MEDS: SUCRALFATE 1 GM TAB PO SCH ×3 (08:43→17:46)
[2020-02-26] MEDS: DOCUSATE SODIUM 100MG CAPSULE PO SCH (08:43)
[2020-02-26] MEDS: ACETAMINOPHEN TAB 650MG DOSE (2X325MG) PO PRN (08:44)
[2020-02-26] MEDS: MULTIVITAMINS/MINERALS THERAP 1 TAB PO SCH (08:44)
[2020-02-26] MEDS: HEPARIN SOD (PORCINE) 5000UNITS/ML 1ML VIAL/SYRINGE SQ SCH ×2 (08:46→20:30)
[2020-02-26] MEDS ORDERED: MORPHINE 2 MG/ML 1ML VIAL (J2270) IV ONE (10:45)
--- NOTE | 2020-02-26 12:09 | IPNPDOC ---
Text Note Date of Service The patient was seen on 02/26/20. NOTE Subjective: No any acute events overnight. Patient complains of dull severe pain in the right stump Objective: GENERAL APPEARANCE: NAD HEENT: no scleral icterus, no JVD, EOMI CARDIOVASCULAR: S1S2 LUNGS: Diminished lung sounds bilaterally ABDOMEN: soft & not tender w palpitation MUSCULOSKELETAL: Right AKA , Left AKA Assessment/Plan Patient is 79 years old female with past medical history of peripheral vascular diseases type 2 diabetes, COPD presented to the hospital for elective right AKA. Patient was seen by Dr. Blanco who recommended a right AKA due to severe peripheral vascular diseases. Of note, patient has left AKA. Of note patient continues to smoke. During my interview patient denied fever, chest pain, shortness of breath, chills, nausea, vomiting, diarrhea or dysuria. Problems (1) HTN (hypertension) Blood pressures under control Continue home cardioprotective medication (2) Type 2 diabetes mellitus Diabetes diet Insulin sliding scale (3) PVD (peripheral vascular disease)/ status post right AKA Pain management I increased pain medications to morphine 2 mg IV every 4-hours (4) COPD (chronic obstructive pulmonary disease) Not in acute exacerbation Patient advised to stop smoking (5) Tobacco abuse See above (6) History of GI bleed PPI Anemia of chronic diseases Also patient has a history of multiple GI bleed Hemoglobin stable today VS,Patrickbone, I+O VS, Fishbone, I+O Laboratory Tests 02/26/20 05:11 Vital Signs Date Time Temp Pulse Resp B/P (MAP) Pulse Ox O2 Delivery O2 Flow Rate FiO2 02/26/20 10:35 18 02/26/20 07:58 98.0 91 138/69 (92) 96 Room Air I&O- Last 24 Hours up to 6 AM 02/26/20 06:00 Intake Total 800 ml Output Total 0 ml Balance 800 ml CUONG BEAVER DO Feb 26, 2020 12:08
[2020-02-26 12:19] VITALS: BP 114/57
[2020-02-26] MEDS: TIOTROPIUM INHALER/CAPSULE (SPIRIVA) INH SCH (13:47)
--- NOTE | 2020-02-26 14:03 | IPNPDOC ---
Date Seen The patient was seen on 02/26/20. Progress Note Patient seen and examined. 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 Preoperatively, the patient had purple-bluish mottled discoloration from the right hip to the foot, and postoperatively, this was a little better with a somewhat warm thigh to the distal stump. Some of the normal coloration had returned. This may be helpful initially that we might be able to heel and above-knee amputation. Without increased blood flow, it is doubtful she will be able to heal even a hip disarticulation. However, if we cannot use anticoagulation, any type of thrombectomy or revascularization will be unsuccessful. The patient and I have had multiple discussions about the likelihood of failure of revascularizations with ongoing tobacco abuse, but she has been unable to quit smoking. We are now at a point where we are end-stage vascular disease, excruciatingly limited options to attempt revascularization, and no ability to proceed with any of them due to her ongoing issues with GI bleeds. Unfortunately, today, her stump is starting to look mottled again. I suspect that what we thrombectomized has begun to all thrombose again since she is not on any antiplatelet and anticoagulation. Unfortunately, this is the normal progression without anticoagulation after thrombectomy. I discussed with the patient today that I am no longer hopeful that she will be able to heal her stump. I am not sure of a further option for her. My suspicion is that in the next day or 2 we will be discussing hospice, but I like to see how things look tomorrow. Currently, the skin edges stable and there is no significant drainage or signs of infection. Nevertheless, her prognosis is extremely poor. VS, I&O, 24H, Fishbone Vital Signs/I&O Vital Signs Date Time Temp Pulse Resp B/P (MAP) Pulse Ox O2 Delivery O2 Flow Rate FiO2 02/26/20 12:19 97.9 89 18 114/57 (76) 95 Room Air I&O- Last 24 Hours up to 6 AM 02/26/20 06:00 Intake Total 800 ml Output Total 0 ml Balance 800 ml Laboratory Data 24H LABS Laboratory Tests 2 02/25/20 17:29: Bedside Glucose (Misc Panel) 160H 02/25/20 21:02: Bedside Glucose (Misc Panel) 190H 02/26/20 05:11: Nucleated Red Blood Cells % (auto) 0.0, Anion Gap 6L, Glomerular Filtration Rate > 60.0, Calcium Level 8.1L, Magnesium Level 2.1 02/26/20 12:03: Bedside Glucose (Misc Panel) 179H CBC/BMP Laboratory Tests 02/26/20 05:11 JOSE J LOVING MD Feb 26, 2020 14:03
[2020-02-26 15:13] VITALS: BP 129/60
[2020-02-26] MEDS: PERCOCET 5MG/325MG TAB PO PRN (17:50)
[2020-02-26 20:00] VITALS: BP 146/64
[2020-02-26] MEDS: ATORVASTATIN 20 MG TAB PO SCH (20:30)
[2020-02-26] MEDS: GABAPENTIN 300 MG CAP PO SCH (20:30)
[2020-02-26] MEDS: MIRTAZAPINE 15 MG TAB PO SCH (20:31)
[2020-02-26] MEDS: POTASSIUM CHLORIDE 10 MEQ SR TABLET PO SCH (20:31)
[2020-02-26] MEDS: SENNA 8.6 MG TAB (SENOKOT) PO SCH (20:31)
[2020-02-26] MEDS: traZODone 25MG PER 1/2 TABLET PO SCH (20:39)
[2020-02-27] VITALS (7 sets, daily range): BP systolic 116–146; BP diastolic 57–75
[2020-02-27 06:16] LABS: HEMOGLOBIN 11.3 g/dl (12.0-15.5); MEAN CORPUSCULAR HGB CONC 29.7 g/dl (32.0-36.5); MEAN CORPUSCULAR VOLUME 87.4 fl (80.0-96.0); PLATELET COUNT, AUTOMATED 575 10^3/uL (150-450); RED BLOOD COUNT 4.35 10^6/uL (4.00-5.40); WHITE BLOOD COUNT 13.1 10^3/uL (4.0-10.0)
[2020-02-27 06:29] LABS: BLOOD UREA NITROGEN 16 MG/DL (7-18); CALCIUM LEVEL 8.5 MG/DL (8.8-10.2); CARBON DIOXIDE LEVEL 25 MEQ/L (21-32); CHLORIDE LEVEL 106 MEQ/L (98-107); CREATININE FOR GFR 0.45 MG/DL (0.55-1.30); GLOMERULAR FILTRATION RATE > 60.0 (>32); GLUCOSE, FASTING 169 MG/DL (70-100); MAGNESIUM LEVEL 2.1 MG/DL (1.8-2.4); POTASSIUM SERUM 4.1 MEQ/L (3.5-5.1); SODIUM LEVEL 136 MEQ/L (136-145)
[2020-02-27] MEDS: SLF 3 ML SYR IV SCH ×3 (06:37→20:40)
[2020-02-27] MEDS: PERCOCET 5MG/325MG TAB PO PRN ×3 (06:38→20:36)
[2020-02-27] MEDS: TIOTROPIUM INHALER/CAPSULE (SPIRIVA) INH SCH (07:10)
[2020-02-27] MEDS: ASPIRIN 81 MG ENTERIC TAB PO SCH (08:43)
[2020-02-27] MEDS: SUCRALFATE 1 GM TAB PO SCH ×3 (08:43→17:04)
[2020-02-27] MEDS: OMEPRAZOLE 20 MG CAP PO SCH (08:43)
[2020-02-27] MEDS: GABAPENTIN 100 MG CAP PO SCH ×2 (08:43→12:00)
[2020-02-27] MEDS: DOCUSATE SODIUM 100MG CAPSULE PO SCH (08:43)
[2020-02-27] MEDS: FERROUS SULFATE 325MG TAB PO SCH ×2 (08:43→20:35)
[2020-02-27] MEDS: MULTIVITAMINS/MINERALS THERAP 1 TAB PO SCH (08:43)
[2020-02-27] MEDS: HEPARIN SOD (PORCINE) 5000UNITS/ML 1ML VIAL/SYRINGE SQ SCH ×2 (08:43→20:35)
[2020-02-27] MEDS: HumaLOG INSULIN (NovoLOG) PER UNIT SC SCH ×4 (08:44→20:39)
--- NOTE | 2020-02-27 11:07 | IPNPDOC ---
Text Note Date of Service The patient was seen on 02/27/20. NOTE Subjective: No any acute events overnight. Patient stated that she feels better today, right leg pain 3 out of 10 Objective: GENERAL APPEARANCE: NAD HEENT: no scleral icterus, no JVD, EOMI CARDIOVASCULAR: S1S2 LUNGS: Diminished lung sounds bilaterally ABDOMEN: soft & not tender w palpitation MUSCULOSKELETAL: Right AKA , Left AKA Assessment/Plan Patient is 79 years old female with past medical history of peripheral vascular diseases type 2 diabetes, COPD presented to the hospital for elective right AKA. Patient was seen by Dr. Blanco who recommended a right AKA due to severe peripheral vascular diseases. Of note, patient has left AKA. Of note patient c ontinues to smoke. During my interview patient denied fever, chest pain, shortness of breath, chills, nausea, vomiting, diarrhea or dysuria. Problems (1) HTN (hypertension) Blood pressures under control Continue home cardioprotective medication (2) Type 2 diabetes mellitus Diabetes diet Insulin sliding scale (3) PVD (peripheral vascular disease)/ status post right AKA Pain management I increased pain medications to morphine 2 mg IV every 4-hours (4) COPD (chronic obstructive pulmonary disease) Not in acute exacerbation Patient advised to stop smoking (5) Tobacco abuse See above (6) History of GI bleed PPI Anemia of chronic diseases Also patient has a history of multiple GI bleed Hemoglobin stable VS,Fishbone, I+O VS, Fishbone, I+O Laboratory Tests 02/27/20 05:16 02/27/20 05:17 Vital Signs Date Time Temp Pulse Resp B/P (MAP) Pulse Ox O2 Delivery O2 Flow Rate FiO2 02/27/20 07:29 96.7 92 20 146/67 (93) 95 Room Air I&O- Last 24 Hours up to 6 AM 02/27/20 06:00 Intake Total 920 ml Output Total 0 ml Balance 920 ml CUONG BEAVER DO Feb 27, 2020 11:07
[2020-02-27] MEDS ORDERED: SENNA 8.6 MG TAB (SENOKOT) PO PRN (14:00)
[2020-02-27] MEDS: MORPHINE 2 MG/ML 1ML VIAL (J2270) IV PRN (18:00)
[2020-02-27] MEDS: MIRTAZAPINE 15 MG TAB PO SCH (20:35)
[2020-02-27] MEDS: SENNA 8.6 MG TAB (SENOKOT) PO SCH (20:35)
[2020-02-27] MEDS: GABAPENTIN 300 MG CAP PO SCH (20:35)
[2020-02-27] MEDS: ATORVASTATIN 20 MG TAB PO SCH (20:36)
[2020-02-27] MEDS: POTASSIUM CHLORIDE 10 MEQ SR TABLET PO SCH (20:36)
[2020-02-27] MEDS: traZODone 25MG PER 1/2 TABLET PO SCH (23:39)
[2020-02-28] MEDS: PERCOCET 5MG/325MG TAB PO PRN ×3 (03:23→15:50)
[2020-02-28] MEDS: SLF 3 ML SYR IV SCH ×3 (05:59→21:09)
[2020-02-28 06:00] VITALS: BP 139/74
[2020-02-28 06:23] LABS: HEMATOCRIT 37.7 % (36.0-47.0); HEMOGLOBIN 11.2 g/dl (12.0-15.5); MEAN CORPUSCULAR HGB CONC 29.7 g/dl (32.0-36.5); MEAN CORPUSCULAR VOLUME 87.7 fl (80.0-96.0); PLATELET COUNT, AUTOMATED 588 10^3/uL (150-450); WHITE BLOOD COUNT 13.3 10^3/uL (4.0-10.0)
[2020-02-28 06:42] LABS: BLOOD UREA NITROGEN 19 MG/DL (7-18); CALCIUM LEVEL 8.3 MG/DL (8.8-10.2); CARBON DIOXIDE LEVEL 24 MEQ/L (21-32); CHLORIDE LEVEL 108 MEQ/L (98-107); CREATININE FOR GFR 0.48 MG/DL (0.55-1.30); GLOMERULAR FILTRATION RATE > 60.0 (>32); GLUCOSE, FASTING 158 MG/DL (70-100); MAGNESIUM LEVEL 2.3 MG/DL (1.8-2.4); SODIUM LEVEL 138 MEQ/L (136-145)
[2020-02-28] MEDS: MULTIVITAMINS/MINERALS THERAP 1 TAB PO SCH (08:04)
[2020-02-28] MEDS: FERROUS SULFATE 325MG TAB PO SCH ×2 (08:04→21:10)
[2020-02-28] MEDS: DOCUSATE SODIUM 100MG CAPSULE PO SCH (08:04)
[2020-02-28] MEDS: OMEPRAZOLE 20 MG CAP PO SCH (08:04)
[2020-02-28] MEDS: GABAPENTIN 100 MG CAP PO SCH ×2 (08:04→11:45)
[2020-02-28] MEDS: ASPIRIN 81 MG ENTERIC TAB PO SCH (08:04)
[2020-02-28] MEDS: SUCRALFATE 1 GM TAB PO SCH ×3 (08:04→17:17)
[2020-02-28] MEDS: HumaLOG INSULIN (NovoLOG) PER UNIT SC SCH ×4 (08:04→21:00)
[2020-02-28] MEDS: HEPARIN SOD (PORCINE) 5000UNITS/ML 1ML VIAL/SYRINGE SQ SCH ×2 (08:05→21:08)
[2020-02-28] MEDS: FUROSEMIDE 20 MG TAB PO SCH (08:08)
--- NOTE | 2020-02-28 08:29 | IPNPDOC ---
Date Seen The patient was seen on 02/28/20. Progress Note Patient seen and examined. She is postoperative day 2 status post right above- knee amputation and SFA femoral thromboebolectomy for acute on chronic atherosclerosis [place] arteries with failure of her right axillary femoral bypass, contraindication to any anticoagulation or antiplatelet therapy due to ongoing history of chronic and acute GI bleeds with anemia, history of contralateral left above-knee amputation one year ago. Preoperatively, the patient had purple-bluish mottled discoloration from the right hip to the foot and she was cold to touch from the right hip to the foot, and postoperatively, this was a little better with a somewhat warm thigh to the distal stump. Some of the normal coloration had returned. I believe it was helpful initially that we did the intraoperative thrombectomy, and felt we might be able to heel and above-knee amputation. However, postoperatively this seems to have rethrombosed. Without increased blood flow, it is doubtful she will be able to heal even a hip disarticulation. However, if we cannot use anticoagulation, any type of thrombectomy or revascularization will be unsuccessful. The patient and I have had multiple discussions about the likelihood of failure of revascularizations with ongoing tobacco abuse, but she has been unable to quit smoking. We are now at a point where we have end-stage vascular disease, extremely limited options to attempt revascularization, and no ability to proceed with any of them due to her ongoing issues with GI bleeds as a contraindication to anticoagulation. Today, her stump is starting to look a little better. Her perfusion is likely waxing and waning, but I'm not sure the thrombectomy will ultimately be helpful or not. The likelihood of a her femoral system thrombosing again without anticoagulation is very high. Unfortunately, this is the normal progression without anticoagulation after thrombectomy. I discussed with the patient today that it is very unclear if she has adequate perfusion ultimately to heal her stump. I am not sure of a further option for her if it does not heal. Currently, the skin edges are stable and there is no drainage or signs of infection. Nevertheless, her overall prognosis is poor. We will continue to follow closely. VS, I&O, 24H, Fishbone Vital Signs/I&O Vital Signs Date Time Temp Pulse Resp B/P (MAP) Pulse Ox O2 Delivery O2 Flow Rate FiO2 02/28/20 06:00 98.4 94 18 139/74 (95) 96 Room Air I&O- Last 24 Hours up to 6 AM 02/28/20 05:59 Intake Total 800 ml Output Total 0 ml Balance 800 ml Laboratory Data 24H LABS Laboratory Tests 2 02/27/20 11:13: Bedside Glucose (Misc Panel) 165H 02/27/20 16:59: Bedside Glucose (Misc Panel) 135H 02/27/20 20:11: Bedside Glucose (Misc Panel) 154H 02/28/20 05:27: Nucleated Red Blood Cells % (auto) 0.0, Anion Gap 6L, Glomerular Filtration Rate > 60.0, Calcium Level 8.3L, Magnesium Level 2.3 CBC/BMP Laboratory Tests 02/28/20 05:27 JOSE J LOVING MD Feb 28, 2020 08:29
[2020-02-28] MEDS: TIOTROPIUM INHALER/CAPSULE (SPIRIVA) INH SCH (09:21)
[2020-02-28] MEDS ORDERED: MAGNESIUM CITRATE 300 ML BTL PO ONE (09:30)
[2020-02-28] MEDS: MORPHINE 2 MG/ML 1ML VIAL (J2270) IV PRN (11:59)
[2020-02-28 14:00] VITALS: BP 130/61
[2020-02-28] MEDS: ACETAMINOPHEN TAB 650MG DOSE (2X325MG) PO PRN ×2 (14:41→21:12)
--- NOTE | 2020-02-28 16:40 | IPNPDOC ---
Text Note Date of Service The patient was seen on 02/28/20. NOTE Subjective: No any acute events overnight. Patient denies fever, chills, nausea, vomiting, diarrhea or dysuria. Patient complains of constipation Objective: GENERAL APPEARANCE: NAD HEENT: no scleral icterus, no JVD, EOMI CARDIOVASCULAR: S1S2 LUNGS: Diminished lung sounds bilaterally ABDOMEN: soft & not tender w palpitation MUSCULOSKELETAL: Right AKA , Left AKA Assessment/Plan Patient is 79 years old female with past medical history of peripheral vascular diseases type 2 diabetes, COPD presented to the hospital for elective right AKA. Patient was seen by Dr. Blanco who recommended a right AKA due to severe peripheral vascular diseases. Of note, patient has left AKA. Of note patient continues to smoke. During my interview patient denied fever, chest pain, shortness of breath, chills, nausea, vomiting, diarrhea or dysuria. Problems (1) HTN (hypertension) Blood pressures under control Continue home cardioprotective medication (2) Type 2 diabetes mellitus Diabetes diet Insulin sliding scale (3) PVD (peripheral vascular disease)/ status post right AKA Pain management I increased pain medications to morphine 2 mg IV every 4-hours Dr. Blanco examined patient stump and found the skin edges are stable and there is no drainage or signs of infection. Prognosis remained very poor due to end-stage vascular disease, extremely limited options to attempt re vascularization, and no ability to proceed with any of them due to her ongoing issues with GI bleeds as a contraindication to anticoagulation. (4) COPD (chronic obstructive pulmonary disease) Not in acute exacerbation Patient advised to stop smoking (5) Tobacco abuse See above (6) History of GI bleed PPI Anemia of chronic diseases Also patient has a history of multiple GI bleed Hemoglobin stable Constipation Patient has persistent constipation most likely secondary to opioids Trial with senna was unsuccessful MiraLAX when necessary, magnesium citrate when necessary VS,Fishbone, I+O VS, Fishbone, I+O Laboratory Tests 02/28/20 05:27 Vital Signs Date Time Temp Pulse Resp B/P (MAP) Pulse Ox O2 Delivery O2 Flow Rate FiO2 02/28/20 16:20 17 02/28/20 15:21 98.2 02/28/20 14:00 90 130/61 (84) 92 Room Air I&O- Last 24 Hours up to 6 AM 02/28/20 06:00 Intake Total 860 ml Output Total 0 ml Balance 860 ml CUONG BEAVER DO Feb 28, 2020 16:40
[2020-02-28] MEDS: GABAPENTIN 300 MG CAP PO SCH (21:09)
[2020-02-28] MEDS: ATORVASTATIN 20 MG TAB PO SCH (21:09)
[2020-02-28] MEDS: SENNA 8.6 MG TAB (SENOKOT) PO SCH (21:10)
[2020-02-28] MEDS: MIRTAZAPINE 15 MG TAB PO SCH (21:10)
[2020-02-28] MEDS: traZODone 25MG PER 1/2 TABLET PO SCH (21:11)
[2020-02-28 22:00] VITALS: BP 122/61
[2020-02-29] MEDS: MORPHINE 2 MG/ML 1ML VIAL (J2270) IV PRN ×3 (04:28→16:44)
[2020-02-29] MEDS: ACETAMINOPHEN TAB 650MG DOSE (2X325MG) PO PRN (04:57)
[2020-02-29] MEDS: SLF 3 ML SYR IV SCH ×3 (05:00→21:35)
[2020-02-29 06:00] VITALS: BP 121/65
[2020-02-29 06:46] LABS: HEMATOCRIT 38.1 % (36.0-47.0); HEMOGLOBIN 11.5 g/dl (12.0-15.5); MEAN CORPUSCULAR HEMOGLOBIN 26.6 pg (27.0-33.0); MEAN CORPUSCULAR HGB CONC 30.2 g/dl (32.0-36.5); MEAN CORPUSCULAR VOLUME 88.2 fl (80.0-96.0); PLATELET COUNT, AUTOMATED 652 10^3/uL (150-450); RED BLOOD COUNT 4.32 10^6/uL (4.00-5.40); WHITE BLOOD COUNT 15.7 10^3/uL (4.0-10.0)
[2020-02-29 07:02] LABS: BLOOD UREA NITROGEN 24 MG/DL (7-18); CARBON DIOXIDE LEVEL 27 MEQ/L (21-32); CHLORIDE LEVEL 104 MEQ/L (98-107); CREATININE FOR GFR 0.46 MG/DL (0.55-1.30); GLOMERULAR FILTRATION RATE > 60.0 (>32); GLUCOSE, FASTING 145 MG/DL (70-100); MAGNESIUM LEVEL 2.9 MG/DL (1.8-2.4); POTASSIUM SERUM 5.6 MEQ/L (3.5-5.1); SODIUM LEVEL 137 MEQ/L (136-145)
[2020-02-29] MEDS: TIOTROPIUM INHALER/CAPSULE (SPIRIVA) INH SCH (07:30)
[2020-02-29] MEDS: HumaLOG INSULIN (NovoLOG) PER UNIT SC SCH ×4 (07:56→20:23)
[2020-02-29] MEDS: HEPARIN SOD (PORCINE) 5000UNITS/ML 1ML VIAL/SYRINGE SQ SCH ×2 (07:57→20:21)
[2020-02-29] MEDS: SUCRALFATE 1 GM TAB PO SCH ×3 (07:57→17:28)
[2020-02-29] MEDS: FUROSEMIDE 20 MG TAB PO SCH (07:57)
[2020-02-29] MEDS: FERROUS SULFATE 325MG TAB PO SCH ×2 (07:58→20:22)
[2020-02-29] MEDS: MULTIVITAMINS/MINERALS THERAP 1 TAB PO SCH (07:58)
[2020-02-29] MEDS: OMEPRAZOLE 20 MG CAP PO SCH (07:58)
[2020-02-29] MEDS: GABAPENTIN 100 MG CAP PO SCH ×2 (07:58→12:08)
[2020-02-29] MEDS: PERCOCET 5MG/325MG TAB PO PRN ×3 (07:59→16:59)
[2020-02-29] MEDS: DOCUSATE SODIUM 100MG CAPSULE PO SCH (07:59)
[2020-02-29] MEDS: ASPIRIN 81 MG ENTERIC TAB PO SCH (07:59)
[2020-02-29] MEDS ORDERED: DEXTROSE 50% 50 ML SYRINGE IV STA (08:09)
[2020-02-29] MEDS ORDERED: HumuLIN R (REGULAR) INSULIN (NovoLIN R) **100U/ML** PER UNIT IV STA (08:09)
[2020-02-29] MEDS ORDERED: FUROSEMIDE 40MG/4ML VIAL (J1940) IV ONE (09:00)
--- NOTE | 2020-02-29 09:04 | IPNPDOC ---
Text Note Date of Service The patient was seen on 02/29/20. NOTE Vascular surgery. Dr. Morton. Patient seen and examined. 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 Preoperatively, the patient had purple-bluish mottled discoloration from the right hip to the foot and she was cold to touch from the right hip to the foot, and postoperatively, this was a little better with a somewhat warm thigh to the distal stump. Some of the normal coloration had returned. Intraoperative thrombectomy was initially fell helpful, and felt she might be able to heel an above-knee amputation. However, postoperatively this seems to have rethrombosed. Without increased blood flow, it is doubtful she will be able to heal even a hip disarticulation. However, if we cannot use anticoagulation, any type of thrombectomy or revascularization will be unsuccessful. The patient and Dr. Morton have had multiple discussions about the likelihood of failure of revascularizations with ongoing tobacco abuse, but she has been unable to quit smoking. We are now at a point where we have end-stage vascular disease, extremely limited options to attempt revascularization, and no ability to proceed with any of them due to her ongoing issues with GI bleeds as a contraindication to anticoagulation. Today, her stump is cool along the incision, there is some darkness along the incision laterally. Discoloration on the thigh appears about the same. Discussed with Dr. Morton, perfusion is likely waxing and waning. The likelihood of a her femoral system thrombosing again without anticoagulation is very high. Unfortunately, this is the normal progression without anticoagulation after thrombectomy. Dr Morton has discussed with the patient that it is very unclear if she has adequate perfusion ultimately to heal her stump. Currently, the skin edges are stable and there is no drainage or signs of infection. The incision is thoroughly cleaned. The incision is dressed with Xeroform, dry gauze, and Kerlix. I have reviewed the patient's status today with Dr. Morton. Her overall p rognosis remains poor. We will continue to follow closely. Alo ESCOBAR I+O VS, Fishbone, I+O Laboratory Tests 02/29/20 05:48 Vital Signs Date Time Temp Pulse Resp B/P (MAP) Pulse Ox O2 Delivery O2 Flow Rate FiO2 02/29/20 08:29 18 02/29/20 06:00 98.2 92 121/65 (83) 96 Room Air I&O- Last 24 Hours up to 6 AM 02/29/20 05:59 Intake Total 620 ml Output Total 100 ml Balance 520 ml Sunshine Allison Feb 29, 2020 09:04
--- NOTE | 2020-02-29 12:09 | CR.PDOC ---
General Date of Consultation: Feb 29, 2020 Referring Provider: CUONG BEAVER DO Primary Care Physician: Shagufta Coleman Consultation REASON FOR CONSULTATION/CHIEF COMPLAINT: pain, debilitation from end stage vascular disease HISTORY OF PRESENT ILLNESS: 79 year old female with severe peripheral arterial disease s/p right AKA recently, left AKA 08/2018. She is awaiting a bed on physical rehabilitation unit. Her [id number] , Mary, with whom she lives stated her worst symptom problem is pain. Debby agrees with that. Debby told me shortly after my arrival she was extremely tired and in fact, after a few moments it became clear she could not remain awake to answer questions or participate in the interview. ALLERGIES: Please see below. HOME MEDICATIONS: Please see below. PAST MEDICAL HISTORY: 1. end stage peripheral vascular disease 2. type 2 DM 3. COPD 4. lung cancer 5. hypertension 6. tobacco abuse 7. hypercalcemia PAST SURGICAL HISTORY: 1. tonsillectomy 2. bilateral common iliac artery angioplasty and stenting 3. upper endoscopy 4. colonoscopies 5. ERCP and biliary stent 6. right axillofemoral and right to left fem fem bypass grafts 7. right AKA 8. left AKA FAMILY HISTORY: Children: son this past August SOCIAL HISTORY: Marital status and/or living arrangements: , lives with granddaughter Mary, her and their 5 children Tobacco use: tobacco use for many years, continued to smoke up til this admission ETOH: NA Illicit drug use: no IV drug use: no REVIEW OF SYSTEMS: CONSTITUTIONAL: denies fevers, chills. +fatigue HEENT: edentulous, denies oral pain or dysphagia CARDIOVASCULAR: denies chest pain or palpitations RESPIRATORY: denies any wheezing or productive cough, recent pneumonia GENITOURINARY: denies dysuria, hematuria MUSCULOSKELETAL: pain at post op stump site GASTROINTESTINAL: constipation SKIN: fingers tender from finger sticks, PA note indicates surgical wound appears to have some coolness NEUROLOGICAL: denies tremors, headaches PSYCHIATRIC: endorses worry over her life without her legs ENDOCRINE: fingerstick 132 HEMATOLOGIC/LYMPHATIC: lung cancer ALLERGIC/IMMUNOLOGIC: NA PHYSICAL EXAMINATION: VITAL SIGNS: Please see below Ext: dressing intact over right stump, tenderness noted at distal stump and an terrior thigh to light palpation PSYCHIATRIC: when she was awake, her affect was quite blunted and withdrawn LABORATORY DATA: Please see below. ASSESSMENT/PLAN: 1. end stage vascular disease 2. lung cancer 3. depression Debby was not able to engage in a conversation about her goals of care today due to expressed tiredness and fatigue. She did express she thinks her transition back to her grand daughter's house will be "hard" but was not able to tell me what would be difficult about it, the fact she needs to now transfer without the use of one leg or other issues. Mary and I did speak via telephone before I came over to see Debby. Mary expressed that she is worried Debby is "giving up". In reviewing Debby's previous notes, it strikes me she has a poor prognosis and may not have long to live. She may be more appropriate for hospice than my palliative care clinic but I was unable to explore this with Debby at today's visit. She does have a MOLST indicating DNR/DNI. no feeding tubes, no IVs for hydration, no antibiotics and comfort being the focus of her care. She may benefit comfort chopra from a switch to plain oxycocone dosed every 2 to 3 hours rather than Perco et ( she stated it helps, but only for 2 hours ). I will come back to visit Debby again, most likely tomorrow and hope she is less fatigued so we can clarify just what Debby desires for her care moving forward. Vital Signs/I&O Vital Signs Date Time Temp Pulse Resp B/P (MAP) Pulse Ox O2 Delivery O2 Flow Rate FiO2 02/29/20 11:03 18 02/29/20 06:00 98.2 92 121/65 (83) 96 Room Air I&O- Last 24 Hours up to 6 AM 02/29/20 06:00 Intake Total 560 ml Output Total 100 ml Balance 460 ml Laboratory Data Labs 24H Laboratory Tests 2 02/28/20 12:12: Bedside Glucose (Misc Panel) 164H 02/28/20 17:00: Bedside Glucose (Misc Panel) 125H 02/28/20 20:10: Bedside Glucose (Misc Panel) 166H 02/29/20 05:48: Nucleated Red Blood Cells % (auto) 0.0, Anion Gap 6L, Glomerular Filtration Rate > 60.0, Calcium Level 8.0L, Magnesium Level 2.9H 02/29/20 08:29: 02/29/20 11:34: Bedside Glucose (Misc Panel) 133H CBC/BMP Laboratory Tests 02/29/20 05:48 02/29/20 08:29 Microbiology Microbiology 02/29/20 Blood Culture, Received Pending Allergies Coded Allergies: No Known Allergies (Verified , 02/24/06) Home Medications Scheduled Aspirin (Aspirin EC) 81 Mg Tablet.dr, 81 MG PO DAILY, (Reported) Atorvastatin Calcium (Atorvastatin Calcium) 40 Mg Tab, 40 MG PO QHS, (Reported) Docusate Sodium (Docusate Sodium) 100 Mg Capsule, 100 MG PO DAILY, (Reported) Ferrous Sulfate (Ferrous Sulfate) 325 Mg Tablet, 325 MG PO BID, (Reported) Fluticasone/Vilanterol (Breo Ellipta 100-25 Mcg INH) 1 Each Blst.w.dev, 1 PUFF INH DAILY, (Reported) Furosemide (Furosemide) 20 Mg Tablet, 20 MG PO DAILY, (Reported) Gabapentin (Gabapentin) 100 Mg Capsule, 200 MG PO BID, (Reported) 0800/1200 Gabapentin (Gabapentin) 300 Mg Capsule, 300 MG PO QHS, (Reported) Metformin HCl (Metformin HCl) 500 Mg Tablet, 500 MG PO BID, (Reported) Mirtazapine (Remeron) 15 Mg Tablet, 15 MG PO QHS, (Reported) Multivitamins (Thera M Plus Tablet) 1 Each Tablet, 1 TAB PO DAILY, (Reported) Omeprazole (Omeprazole) 40 Mg Capsule.dr, 40 MG PO DAILY, (Reported) Potassium Chloride (Potassium Chloride) 10 Meq Tab.er.prt, 10 MEQ PO QHS, (Reported) Sennosides (Senna) 8.6 Mg Tablet, 8.6 MG PO QHS, (Reported) Sucralfate (Sucralfate) 1 Gm Tablet, 1 GM PO AC, (Reported) Tiotropium [place] (Spiriva) 18 Mcg Cap.w.dev, 18 MCG INH DAILY, (Reported) Trazodone HCl (Trazodone HCl) 50 Mg Tablet, 25 MG PO QHS, (Reported) Scheduled PRN Albuterol Sulfate (Proair Hfa) 8.5 Gm Hfa.aer.ad, 2 PUFF INH Q4H PRN for SHORTNESS OF BREATH, (Reported) Coni HESTER WARDROBE SUPERVISOR Feb 29, 2020 12:09
[2020-02-29 14:00] VITALS: BP 104/53
--- NOTE | 2020-02-29 16:58 | IPNPDOC ---
Text Note Date of Service The patient was seen on 02/29/20. NOTE Subjective: No any acute events overnight. Constipation resolved Objective: GENERAL APPEARANCE: NAD HEENT: no scleral icterus, no JVD, EOMI CARDIOVASCULAR: S1S2 LUNGS: Diminished lung sounds bilaterally ABDOMEN: soft & not tender w palpitation MUSCULOSKELETAL: Right AKA , Left AKA Assessment/Plan Patient is 79 years old female with past medical history of peripheral vascular diseases type 2 diabetes, COPD presented to the hospital for elective right AKA. Patient was seen by Dr. Blanco who recommended a right AKA due to severe peripheral vascular diseases. Of note, patient has left AKA. Of note patient continues to smoke. During my interview patient denied fever, chest pain, shortness of breath, chills, nausea, vomiting, diarrhea or dysuria. Problems (1) HTN (hypertension) Blood pressures under control Continue home cardioprotective medication (2) Type 2 diabetes mellitus Diabetes diet Insulin sliding scale (3) PVD (peripheral vascular disease)/ status post right AKA Pain management I increased pain medications to morphine 2 mg IV every 4-hours Dr. Blanco examined patient stump and found the skin edges are stable and there is no drainage or signs of infection. Prognosis remained very poor due to end-stage vascular disease, extremely limited options to attempt revascularization, and no ability to proceed with any of them due to her ongoing issues with GI bleeds as a contraindication to anticoagulation. Wound care per vascular surgeon (4) COPD (chronic obstructive pulmonary disease) Not in acute exacerbation Patient advised to stop smoking (5) Tobacco abuse See above (6) History of GI bleed PPI Anemia of chronic diseases Also patient has a history of multiple GI bleed Hemoglobin stable Constipation Resolved Leukocytosis Patient afebrile, normotensive, however procalcitonin 68, wound after R AKA not infected Appreciate/agree with ID consult VS,Alo, I+O VS, Patrickbone, I+O Laboratory Tests 02/29/20 05:48 02/29/20 08:29 02/29/20 11:58 02/29/20 16:18 Vital Signs Date Time Temp Pulse Resp B/P (MAP) Pulse Ox O2 Delivery O2 Flow Rate FiO2 02/29/20 16:44 17 02/29/20 14:00 97.2 91 104/53 (70) 98 Room Air I&O- Last 24 Hours up to 6 AM 02/29/20 06:00 Intake Total 560 ml Output Total 100 ml Balance 460 ml CUONG BEAVER DO Feb 29, 2020 16:58
[2020-02-29] MEDS ORDERED: VANCOMYCIN HCL 1,000 MG, VIAL MATE ADAPTER 1 EACH in D5W 250 ML IV SCH (19:00)
--- NOTE | 2020-02-29 19:55 | REP ---
INDICATION: fever WBC COMPARISON: CT 02/16/2020, radiograph 10/15/2018. TECHNIQUE: PA/Lateral FINDINGS: Lungs: Subtle nodular opacities seen in the right upper lobe. Large irregular mass is seen in the left upper lobe. Metallic clips project over the left upper hemithorax. Lower lung zones are clear. Heart: Normal in size. Mediastinum: Mediastinal silhouette unremarkable. Pleural angles: Unremarkable.. Bones and soft tissues: Unremarkable. IMPRESSION: Subtle nodular opacities seen in the right upper lobe. Large irregular mass is seen in the left upper lobe. Metallic clips project over the left upper hemithorax. Lower lung zones are clear. <Electronically signed by Allan Omalley > 02/29/201950
[2020-02-29] MEDS: cefTRIAXone SOD 2 GM in D5W MINI-BAG PLUS 50 ML IV SCH (20:16)
[2020-02-29] MEDS: traZODone 25MG PER 1/2 TABLET PO SCH (20:21)
[2020-02-29] MEDS: GABAPENTIN 300 MG CAP PO SCH (20:21)
[2020-02-29] MEDS: SENNA 8.6 MG TAB (SENOKOT) PO SCH (20:22)
[2020-02-29] MEDS: ATORVASTATIN 20 MG TAB PO SCH (20:22)
[2020-02-29] MEDS: MIRTAZAPINE 15 MG TAB PO SCH (20:23)
[2020-02-29 21:04] LABS: ALBUMIN 2.1 GM/DL (3.2-5.2); BILIRUBIN,DIRECT 0.1 MG/DL (0.0-0.2); BILIRUBIN,TOTAL 0.4 MG/DL (0.2-1.0); C REACTIVE PROTEIN QUANTITATIV 17.4 MG/DL (0.00-0.30); TOTAL PROTEIN 6.3 GM/DL (6.4-8.2)
[2020-02-29] MEDS: VANCOMYCIN HCL 500 MG in D5W MINI-BAG PLUS 100 ML IV SCH (21:34)
[2020-02-29 22:00] VITALS: BP 124/63
[2020-03-01 02:00] VITALS: BP 128/67
[2020-03-01] MEDS: PERCOCET 5MG/325MG TAB PO PRN ×4 (04:22→23:57)
[2020-03-01] MEDS: SLF 3 ML SYR IV SCH ×3 (05:20→22:25)
[2020-03-01 05:50] LABS: HEMATOCRIT 37.2 % (36.0-47.0); HEMOGLOBIN 11.1 g/dl (12.0-15.5); MEAN CORPUSCULAR HEMOGLOBIN 26.4 pg (27.0-33.0); MEAN CORPUSCULAR HGB CONC 29.8 g/dl (32.0-36.5); MEAN CORPUSCULAR VOLUME 88.4 fl (80.0-96.0); PLATELET COUNT, AUTOMATED 666 10^3/uL (150-450); RED BLOOD COUNT 4.21 10^6/uL (4.00-5.40); WHITE BLOOD COUNT 15.5 10^3/uL (4.0-10.0)
[2020-03-01 06:00] VITALS: BP 130/67
[2020-03-01 06:20] LABS: BLOOD UREA NITROGEN 28 MG/DL (7-18); CALCIUM LEVEL 8.5 MG/DL (8.8-10.2); CARBON DIOXIDE LEVEL 25 MEQ/L (21-32); CHLORIDE LEVEL 104 MEQ/L (98-107); CREATININE FOR GFR 0.56 MG/DL (0.55-1.30); GLOMERULAR FILTRATION RATE > 60.0 (>32); GLUCOSE, FASTING 142 MG/DL (70-100); MAGNESIUM LEVEL 2.4 MG/DL (1.8-2.4); SODIUM LEVEL 136 MEQ/L (136-145)
[2020-03-01] MEDS: TIOTROPIUM INHALER/CAPSULE (SPIRIVA) INH SCH (07:23)
[2020-03-01] MEDS: GABAPENTIN 100 MG CAP PO SCH ×2 (08:28→12:23)
[2020-03-01] MEDS: FERROUS SULFATE 325MG TAB PO SCH ×2 (08:28→20:51)
[2020-03-01] MEDS: HumaLOG INSULIN (NovoLOG) PER UNIT SC SCH ×4 (08:28→20:46)
[2020-03-01] MEDS: OMEPRAZOLE 20 MG CAP PO SCH (08:28)
[2020-03-01] MEDS: ASPIRIN 81 MG ENTERIC TAB PO SCH (08:28)
[2020-03-01] MEDS: SUCRALFATE 1 GM TAB PO SCH ×3 (08:28→18:19)
[2020-03-01] MEDS: FUROSEMIDE 20 MG TAB PO SCH (08:28)
[2020-03-01] MEDS: DOCUSATE SODIUM 100MG CAPSULE PO SCH (08:28)
[2020-03-01] MEDS: MULTIVITAMINS/MINERALS THERAP 1 TAB PO SCH (08:28)
[2020-03-01] MEDS: HEPARIN SOD (PORCINE) 5000UNITS/ML 1ML VIAL/SYRINGE SQ SCH ×2 (08:30→20:50)
--- NOTE | 2020-03-01 08:46 | IPNPDOC ---
Text Note Date of Service The patient was seen on 03/01/20. NOTE Vascular surgery. Dr. Morton. Patient seen and examined. She is postoperative day 6 status post right above- knee amputation and SFA femoral thromboebolectomy for acute on chronic atherosclerosis upper [place] arteries with failure of her right axillary femoral bypass, contraindication to any anticoagulation or antiplatelet therapy due to ongoing history of chronic and acute GI bleeds with anemia, history of contralateral left above-knee amputation one year ago. Preoperatively, the patient had purple-bluish mottled discoloration from the right hip to the foot and she was cold to touch from the right hip to the foot, and postoperatively, this was a little better with a somewhat warm thigh to the distal stump. Some of the normal coloration had returned. Intraoperative thrombectomy was initially fell helpful, and felt she might be able to heel an above-knee amputation. However, postoperatively this seems to have rethrombosed. Without increased blood flow, it is doubtful she will be able to heal even a hip disarticulation. However, if we cannot use anticoagulation, any type of thrombectomy or revascularization will be unsuccessful. The patient and Dr. Morton have had multiple discussions about the likelihood of failure of revascularizations with ongoing tobacco abuse, but she has been unable to quit smoking. The pt has severe end-stage vascular disease, extremely limited options to attempt revascularization, and no ability to proceed with any of them due to her h/o GI bleeds as a contraindication to anticoagulation. Today, her stump is still cool at the end and along the incision, there is some darkness and mottling along the incision. Discoloration on the thigh has progressed more proximally from yesterday. Will relay to Dr. Morton. The pt perfusion has been waxing and waning. The likelihood of a her femoral system thrombosing again without anticoagulation is very high. Unfortunately, this is the normal progression without anticoagul ation after thrombectomy. Dr Morton has discussed with the patient that it is very unclear if she has adequate perfusion ultimately to heal her stump. Currently, the skin edges are stable and there is no drainage on the dressing. The incision is thoroughly cleaned. The incision is re dressed with Xeroform, dry gauze, and Kerlix. I will review the patient's status today with Dr. Morton. Her overall prognosis remains poor. We will continue to follow closely. VS,Fishbone, I+O VS, Fishbone, I+O Laboratory Tests 02/29/20 11:58 02/29/20 16:18 02/29/20 20:26 02/29/20 23:53 03/01/20 05:28 Vital Signs Date Time Temp Pulse Resp B/P (MAP) Pulse Ox O2 Delivery O2 Flow Rate FiO2 03/01/20 08:32 18 03/01/20 06:00 99.2 103 130/67 (88) 98 Room Air I&O- Last 24 Hours up to 6 AM 03/01/20 06:00 Intake Total 280 ml Output Total 0 ml Balance 280 ml Sunshine Allison Mar 01, 2020 08:46
--- NOTE | 2020-03-01 09:09 | IPNPDOC ---
Date Seen The patient was seen on 03/01/20. Progress Note Pt seen and examined. Her stump continues to look a bit more ischemic each day, now with extension towards the groin medially. There is still no obvious signs of infection- no erythema, induration, drainage, and no gangrene present yet, but ongoing progression of tissue deterioration is inevitable at this point. She does not have adequate perfusion to heal ultimately, and with ongoing contrain dication to anticoagulation, we are do not have a viable solution to even attempt further revascularization. At this point, the tissue is likely too ischemic to recover even if we could offer further intervention. Agree with palliative care consult. We will continue to monitor her stump. We appreciate the opportunity to participate in the care of this patient. VS, I&O, 24H, Fishbone Vital Signs/I&O Vital Signs Date Time Temp Pulse Resp B/P (MAP) Pulse Ox O2 Delivery O2 Flow Rate FiO2 03/01/20 08:32 18 03/01/20 06:00 99.2 103 130/67 (88) 98 Room Air I&O- Last 24 Hours up to 6 AM 03/01/20 06:00 Intake Total 280 ml Output Total 0 ml Balance 280 ml Laboratory Data 24H LABS Laboratory Tests 2 02/29/20 11:34: Bedside Glucose (Misc Panel) 133H 02/29/20 17:01: Bedside Glucose (Misc Panel) 111H 02/29/20 19:56: Bedside Glucose (Misc Panel) 127H 02/29/20 20:26: Total Bilirubin 0.4, Direct Bilirubin 0.1, Aspartate Amino Transf (AST/SGOT) 46H, Alanine Aminotransferase (ALT/SGPT) 24, Alkaline Phosphatase 181H, C- Reactive Protein, Quantitative 17.40H, Total Protein 6.3L, Albumin 2.1L, Albumin/Globulin Ratio 0.5L 02/29/20 23:22: Urine Color YELLOW, Urine Appearance TURBIDH, Urine pH 5.0, Urine Specific [place] 1.017, Urine Protein 2+H, Urine Glucose (UA) NEGATIVE, Urine Ketones 1+H, Urine Blood 2+H, Urine Nitrite NEGATIVE, Urine Bilirubin NEGATIVE, Urine Urobilinogen 0.2, Urine Leukocyte Esterase 2+H, Urine WBC (Auto) TNTCH, Urine RBC (Auto) 151H, Urine Hyaline Casts (Auto) 0, Urine Bacteria (Auto) NEGATIVE, Urine Squamous Epithelial Cells 0, Urine Transitional Epithelial Cells 2, Urine Mucus (Auto) SMALL, Urine Yeast-Like Cells (Auto) LARGEH, Urine Sperm (Auto) , Methicillin-Resist S.aureus DNA PCR NOT DETECTED 03/01/20 05:28: Nucleated Red Blood Cells % (auto) 0.0, Anion Gap 7L, Glomerular Filtration Rate > 60.0, Calcium Level 8.5L, Magnesium Level 2.4 03/01/20 05:34: Bedside Glucose (Misc Panel) 141H 03/01/20 08:17: Vancomycin Level Trough 6.5L CBC/BMP Laboratory Tests 02/29/20 11:58 02/29/20 16:18 02/29/20 20:26 02/29/20 23:53 03/01/20 05:28 Microbiology Microbiology 02/29/20 Urine Culture, Received Pending 02/29/20 Blood Culture, Received Pending 02/29/20 Blood Culture - Preliminary, Resulted No growth after 24 hours . All specim... JOSE J LOVING MD Mar 01, 2020 09:09
[2020-03-01] MEDS: VANCOMYCIN HCL 500 MG in D5W MINI-BAG PLUS 100 ML IV SCH ×2 (09:15→20:47)
[2020-03-01 10:00] VITALS: BP 125/64
[2020-03-01] MEDS: MORPHINE 2 MG/ML 1ML VIAL (J2270) IV PRN (10:20)
[2020-03-01] MEDS ORDERED: VANCOMYCIN HCL 500 MG in D5W MINI-BAG PLUS 100 ML IV ONE (12:00)
[2020-03-01 14:00] VITALS: BP 127/63
--- NOTE | 2020-03-01 16:26 | IPNPDOC ---
Text Note Date of Service The patient was seen on 03/01/20. NOTE Subjective: Patient stated that she continues to have right stump pain 6 out of 10 Objective: GENERAL APPEARANCE: NAD HEENT: no scleral icterus, no JVD, EOMI CARDIOVASCULAR: S1S2 LUNGS: Diminished lung sounds bilaterally ABDOMEN: soft & not tender w palpitation MUSCULOSKELETAL: Right AKA , Left AKA Assessment/Plan Patient is 79 years old female with past medical history of peripheral vascular diseases type 2 diabetes, COPD presented to the hospital for elective right AKA. Patient was seen by Dr. Blanco who recommended a right AKA due to severe peripheral vascular diseases. Of note, patient has left AKA. Of note patient continues to smoke. During my interview patient denied fever, chest pain, shortness of breath, chills, nausea, vomiting, diarrhea or dysuria. Problems (1) HTN (hypertension) Blood pressures under control Continue home cardioprotective medication (2) Type 2 diabetes mellitus Diabetes diet Insulin sliding scale (3) PVD (peripheral vascular disease)/ status post right AKA Pain management I increased pain medications to morphine 2 mg IV every 4-hours Dr. Blanco examined patient stump and found the skin edges are stable and there is no drainage or signs of infection. Prognosis remained very poor due to end-stage vascular disease, extremely limited options to attempt revascularization, and no ability to proceed with any of them due to her ongoing issues with GI bleeds as a contraindication to anticoagulation. Wound care per vascular surgeon (4) COPD (chronic obstructive pulmonary disease) Not in acute exacerbation Patient advised to stop smoking (5) Tobacco abuse See above (6) History of GI bleed PPI Anemia of chronic diseases Also patient has a history of multiple GI bleed Hemoglobin stable Constipation Resolved Leukocytosis Patient afebrile, normotensive, however procalcitonin 68, wound after R AKA not infected Dr. Torres started vancomycin and ceftriaxone empirically VS,Fishbone, I+O VS, Fishbone, I+O Laboratory Tests 02/29/20 20:26 02/29/20 23:53 03/01/20 05:28 Vital Signs Date Time Temp Pulse Resp B/P (MAP) Pulse Ox O2 Delivery O2 Flow Rate FiO2 03/01/20 14:00 98.2 93 16 127/63 (84) 97 Room Air I&O- Last 24 Hours up to 6 AM 03/01/20 06:00 Intake Total 280 ml Output Total 0 ml Balance 280 ml CUONG BEAVER DO Mar 01, 2020 16:26
--- NOTE | 2020-03-01 16:49 | IPNPDOC ---
Text Note Date of Service The patient was seen on 03/01/20. NOTE I attempted to talk with Debby this afternoon about goals of care. She was vis iting with her daughter when I arrived. While her daughter was present I asked Debby if she remembered the visit from he vascular surgeon earlier in the day. She said she did but did not recall what was discussed. I told them there are concerns her healing may not be proceeding well. Her daughter expressed Debby had a difficult time with her previous amputation and she was hopeful Debby might be able to be discharged home at some point. Her daughter then left. I asked Debby where she would prefer to be if she had the choice and she stated "home". I asked her if she was tired of going to doctor appointments and the hospital and she stated she was tired of that and would prefer to have care in her home ( more accurately, in her granddaughter's home ). At this point, Debby began to withdraw from the conversation and appeared tired. I asked if she felt tired and she agreed she was. Unless her healing improves dramatically ( which is unlikely ) I think Debby and her family will need to have a discussion about what makes the best sense for her care moving forward. I do think she is most appropriate for hospice care, however, unless she is willing to accept this, it won't happen. Next best option would be to discharge her home with home health nursing for dressing changes and the family would need to manage her pain with prescribed medications. I could see her in my clinic, however, she would need to travel to my clinic at least once every 3 months ( I do not do home visits ). In the past a family meeting might have been arranged in a case like this. With COVID res trictions this conversation may need to occur over the telephone or via Skype if possible. VS,Fishbone, I+O VS, Fishbone, I+O Laboratory Tests 02/29/20 20:26 02/29/20 23:53 03/01/20 05:28 Vital Signs Date Time Temp Pulse Resp B/P (MAP) Pulse Ox O2 Delivery O2 Flow Rate FiO2 03/01/20 14:00 98.2 93 16 127/63 (84) 97 Room Air I&O- Last 24 Hours up to 6 AM 03/01/20 06:00 Intake Total 280 ml Output Total 0 ml Balance 280 ml Coni [facility] Mar 01, 2020 16:49
[2020-03-01 18:00] VITALS: BP 127/63
[2020-03-01] MEDS: cefTRIAXone SOD 2 GM in D5W MINI-BAG PLUS 50 ML IV SCH (19:44)
[2020-03-01] MEDS: SENNA 8.6 MG TAB (SENOKOT) PO SCH (20:50)
[2020-03-01] MEDS: traZODone 25MG PER 1/2 TABLET PO SCH (20:51)
[2020-03-01] MEDS: ATORVASTATIN 20 MG TAB PO SCH (20:51)
[2020-03-01] MEDS: GABAPENTIN 300 MG CAP PO SCH (20:51)
[2020-03-01] MEDS: MIRTAZAPINE 15 MG TAB PO SCH (20:52)
[2020-03-01 22:00] VITALS: BP 145/75
[2020-03-02] MEDS: MORPHINE 2 MG/ML 1ML VIAL (J2270) IV PRN ×2 (00:48→17:25)
[2020-03-02] MEDS: SLF 3 ML SYR IV SCH ×3 (05:53→23:12)
[2020-03-02 06:00] VITALS: BP 146/75
[2020-03-02] MEDS: HumaLOG INSULIN (NovoLOG) PER UNIT SC SCH ×4 (07:30→20:36)
[2020-03-02] MEDS: TIOTROPIUM INHALER/CAPSULE (SPIRIVA) INH SCH (08:14)
[2020-03-02] MEDS: HEPARIN SOD (PORCINE) 5000UNITS/ML 1ML VIAL/SYRINGE SQ SCH ×2 (08:19→20:35)
[2020-03-02] MEDS: MULTIVITAMINS/MINERALS THERAP 1 TAB PO SCH (08:20)
[2020-03-02] MEDS: GABAPENTIN 100 MG CAP PO SCH ×2 (08:20→12:19)
[2020-03-02] MEDS: SUCRALFATE 1 GM TAB PO SCH ×3 (08:20→17:25)
[2020-03-02] MEDS: FUROSEMIDE 20 MG TAB PO SCH (08:20)
[2020-03-02] MEDS: ASPIRIN 81 MG ENTERIC TAB PO SCH (08:20)
[2020-03-02] MEDS: OMEPRAZOLE 20 MG CAP PO SCH (08:20)
[2020-03-02] MEDS: DOCUSATE SODIUM 100MG CAPSULE PO SCH (08:20)
[2020-03-02] MEDS: FERROUS SULFATE 325MG TAB PO SCH ×2 (08:20→20:35)
[2020-03-02 08:25] LABS: HEMOGLOBIN 10.7 g/dl (12.0-15.5); MEAN CORPUSCULAR HEMOGLOBIN 26.7 pg (27.0-33.0); MEAN CORPUSCULAR HGB CONC 30.6 g/dl (32.0-36.5); MEAN CORPUSCULAR VOLUME 87.3 fl (80.0-96.0); PLATELET COUNT, AUTOMATED 699 10^3/uL (150-450); RED BLOOD COUNT 4.01 10^6/uL (4.00-5.40); WHITE BLOOD COUNT 14.6 10^3/uL (4.0-10.0)
[2020-03-02 08:44] LABS: BLOOD UREA NITROGEN 32 MG/DL (7-18); CALCIUM LEVEL 8.5 MG/DL (8.8-10.2); CARBON DIOXIDE LEVEL 27 MEQ/L (21-32); CHLORIDE LEVEL 105 MEQ/L (98-107); CREATININE FOR GFR 0.54 MG/DL (0.55-1.30); GLOMERULAR FILTRATION RATE > 60.0 (>32); GLUCOSE, FASTING 147 MG/DL (70-100); MAGNESIUM LEVEL 2.4 MG/DL (1.8-2.4); POTASSIUM SERUM 4.4 MEQ/L (3.5-5.1); SODIUM LEVEL 139 MEQ/L (136-145); VANCOMYCIN LEVEL TROUGH 17.6 UG/ML (10.0-20.0)
--- NOTE | 2020-03-02 09:41 | IPNPDOC ---
Date Seen The patient was seen on 03/02/20. Progress Note Pt seen and examined. Her stump continues to look a bit more ischemic each day, now with extension towards the groin medially and progressive hardening of the skin on the anterior thigh that will likely become eschar and dry gangrene. There is still no obvious signs of infection- no erythema, induration, drainage, and no gangrene present yet, but ongoing progression of tissue deterioration is inevitable at this point and she has been started on antibiotics. She does not have adequate perfusion to heal ultimately, and with ongoing contraindication to anticoagulation, we are do not have a viable solution to even attempt further revascularization. At this point, the tissue is too ischemic to recover even if we could offer further intervention. Agree with palliative care consult and strongly recommend hospice if the patient will agree. We will continue to monitor her stump and likely switch her to Betadine soaked gauze to try to prevent progression of dry gangrene to wet gangrene. Additionally, if the patient goes home, ongoing tobacco use will make the ischemia even worse and increase the rate of deterioration of the stump. With her weakened state, nonhealing right AKA, and failure to thrive, she is going to be a challenge to care for at home. Unfortunately, this is a dismal situation, can also be very painful, but other options are to salvage her situation not available. We will continue to follow. VS, I&O, 24H, Fishbone Vital Signs/I&O Vital Signs Date Time Temp Pulse Resp B/P (MAP) Pulse Ox O2 Delivery O2 Flow Rate FiO2 03/02/20 06:00 98.2 87 18 146/75 (98) 99 Room Air I&O- Last 24 Hours up to 6 AM 03/02/20 06:00 Intake Total 399 ml Output Total 0 ml Balance 399 ml Laboratory Data 24H LABS Laboratory Tests 2 03/01/20 11:49: Bedside Glucose (Misc Panel) 144H 03/01/20 17:31: Bedside Glucose (Misc Panel) 121H 03/01/20 20:22: Bedside Glucose (Misc Panel) 153H 03/02/20 07:58: Nucleated Red Blood Cells % (auto) 0.0, Anion Gap 7L, Glomerular Filtration Rate > 60.0, Calcium Level 8.5L, Magnesium Level 2.4, Vancomycin Level Trough 17.6 CBC/BMP Laboratory Tests 03/02/20 07:58 Microbiology Microbiology 02/29/20 Urine Culture - Final, Complete Yeast Like Organism 02/29/20 Blood Culture - Preliminary, Resulted No growth after 24 hours . All specim... 02/29/20 Blood Culture - Preliminary, Resulted No Growth after 48 hours. All Specime... JOSE J LOVING MD Mar 02, 2020 09:41
[2020-03-02] MEDS: VANCOMYCIN HCL 500 MG in D5W MINI-BAG PLUS 100 ML IV SCH ×2 (09:58→21:24)
[2020-03-02] MEDS: PERCOCET 5MG/325MG TAB PO PRN ×2 (13:29→17:42)
[2020-03-02 14:00] VITALS: BP 132/59
--- NOTE | 2020-03-02 16:32 | IPN ---
PROGRESS NOTE DATE: 03/02/2020 Debby does not seem to be doing any better today or worse. She still complains of significant pain in her right leg. Her appetite is fair. She denies any urinary symptom. No dysuria, hematuria, or vaginal itching. LABORATORY DATA: White count is 14.6, hemoglobin 10.7, hematocrit 35, platelets 699. Sodium 139, potassium 4.1 chloride 105, bicarbonate 27, BUN 32, creatinine 0.54, glucose 147, calcium 8.5, magnesium 2.4. Vancomycin trough 17.6. Methicillin-resistant Staphylococcus aureus (MRSA) screen was not detected. Blood cultures, two sets, were no growth after 48 hours. A urine culture had yeast-like organisms, more than 100,000. Urinalysis had too numerous to count white cells. PHYSICAL EXAMINATION: Temperature is 99.1, pulse 72, respirations 16, blood pressure 132/59, oxygen saturation 97% on room air. HEART: Normal S1, S2, distant. LUNGS: Clear. No wheezes, rales, rhonchi but diminished. ABDOMEN: Soft and nontender. EXTREMITIES: Left above-knee amputation, well healed. Right above-knee amputation (AKA) with mottled thigh. No change. Sutures in place. Incision clean with no evidence of infection. IMPRESSION: 1. Severe peripheral vascular disease, status post right AKA with ischemic stump. Probably the cause is elevated procalcitonin and elevated WBC. Patient is on palliative care, and hospice care is being discussed. 2. Candiduria. Patient asymptomatic. Does not have dysuria, vaginal itching, or any other complaint. Does not need to be treated. PLAN: If all blood cultures are negative tomorrow, 48-72 hours, I would discontinue all antibiotics. Labs tomorrow, complete blood count (CBC), procalcitonin. Would not treat franklin in urine if asymptomatic MTDD
--- NOTE | 2020-03-02 18:05 | IPNPDOC ---
Text Note Date of Service The patient was seen on 03/02/20. NOTE Subjective: Patient stated that she continues to have right stump pain 6 out of 10. Patient denies fever, chills, nausea, vomiting or dysuria Objective: GENERAL APPEARANCE: NAD HEENT: no scleral icterus, no JVD, EOMI CARDIOVASCULAR: S1S2 LUNGS: Diminished lung sounds bilaterally ABDOMEN: soft & not tender w palpitation MUSCULOSKELETAL: Right AKA covered with dressing, Left AKA. Assessment/Plan Patient is 79 years old female with past medical history of peripheral vascular diseases type 2 diabetes, COPD presented to the hospital for elective right AKA. Patient was seen by Dr. Blanco who recommended a right AKA due to severe peripheral vascular diseases. Of note, patient has left AKA. Of note patient continues to smoke. During my interview patient denied fever, chest pain, shortness of breath, chills, nausea, vomiting, diarrhea or dysuria. Problems (1) HTN (hypertension) Blood pressures under control Continue home cardioprotective medication (2) Type 2 diabetes mellitus Diabetes diet Insulin sliding scale (3) PVD (peripheral vascular disease)/ status post right AKA Pain management I increased pain medications to morphine 2 mg IV every 4-hours Dr. Blanco examined patient stump and found the skin edges are stable and there is no drainage or signs of infection. Prognosis remained very poor due to end-stage vascular disease, extremely limited options to attempt revascularization, and no ability to proceed with any of them due to her ongoing issues with GI bleeds as a contraindication to anticoagulation. Wound care per vascular surgeon Patient currently on the palliative care for wound Hospice consult placed (4) COPD (chronic obstructive pulmonary disease) Not in acute exacerbation Patient advised to stop smoking (5) Tobacco abuse See above (6) History of GI bleed PPI Anemia of chronic diseases Also patient has a history of multiple GI bleed Hemoglobin stable Constipation Resolved Leukocytosis Patient afebrile, normotensive, however procalcitonin 68, wound after R AKA not infected Dr. Torres started vancomycin and ceftriaxone empirically VS,Fishbone, I+O VS, Fishbone, I+O Laboratory Tests 03/02/20 07:58 Vital Signs Date Time Temp Pulse Resp B/P (MAP) Pulse Ox O2 Delivery O2 Flow Rate FiO2 03/02/20 17:42 17 03/02/20 14:00 99.1 72 132/59 (83) 97 Room Air I&O- Last 24 Hours up to 6 AM 03/02/20 06:00 Intake Total 399 ml Output Total 0 ml Balance 399 ml CUONG BEAVER DO Mar 02, 2020 18:05
[2020-03-02] MEDS ORDERED: MORPHINE 2 MG/ML 1ML VIAL (J2270) IV ONE (19:00)
[2020-03-02] MEDS: SENNA 8.6 MG TAB (SENOKOT) PO SCH (20:35)
[2020-03-02] MEDS: traZODone 25MG PER 1/2 TABLET PO SCH (20:35)
[2020-03-02] MEDS: cefTRIAXone SOD 2 GM in D5W MINI-BAG PLUS 50 ML IV SCH (20:35)
[2020-03-02] MEDS: GABAPENTIN 300 MG CAP PO SCH (20:35)
[2020-03-02] MEDS: MIRTAZAPINE 15 MG TAB PO SCH (20:36)
[2020-03-02] MEDS: ATORVASTATIN 20 MG TAB PO SCH (20:36)
[2020-03-02 22:00] VITALS: BP 143/75
[2020-03-03] MEDS: SLF 3 ML SYR IV SCH (05:56)
[2020-03-03 06:00] VITALS: BP 142/71
[2020-03-03] MEDS: HumaLOG INSULIN (NovoLOG) PER UNIT SC SCH ×2 (07:30→11:42)
[2020-03-03] MEDS: DOCUSATE SODIUM 100MG CAPSULE PO SCH (08:14)
[2020-03-03] MEDS: OMEPRAZOLE 20 MG CAP PO SCH (08:15)
[2020-03-03] MEDS: GABAPENTIN 100 MG CAP PO SCH ×2 (08:15→11:42)
[2020-03-03] MEDS: FUROSEMIDE 20 MG TAB PO SCH (08:15)
[2020-03-03] MEDS: FERROUS SULFATE 325MG TAB PO SCH (08:15)
[2020-03-03] MEDS: SUCRALFATE 1 GM TAB PO SCH ×2 (08:15→11:42)
[2020-03-03] MEDS: ASPIRIN 81 MG ENTERIC TAB PO SCH (08:15)
[2020-03-03] MEDS: MULTIVITAMINS/MINERALS THERAP 1 TAB PO SCH (08:15)
[2020-03-03] MEDS: HEPARIN SOD (PORCINE) 5000UNITS/ML 1ML VIAL/SYRINGE SQ SCH (08:15)
[2020-03-03] MEDS: TIOTROPIUM INHALER/CAPSULE (SPIRIVA) INH SCH (08:19)
[2020-03-03] MEDS: PERCOCET 5MG/325MG TAB PO PRN (08:26)
[2020-03-03 08:31] LABS: HEMATOCRIT 33.7 % (36.0-47.0); MEAN CORPUSCULAR HEMOGLOBIN 26.2 pg (27.0-33.0); MEAN CORPUSCULAR HGB CONC 29.7 g/dl (32.0-36.5); MEAN CORPUSCULAR VOLUME 88.5 fl (80.0-96.0); PLATELET COUNT, AUTOMATED 741 10^3/uL (150-450); RED BLOOD COUNT 3.81 10^6/uL (4.00-5.40); WHITE BLOOD COUNT 13.6 10^3/uL (4.0-10.0)
[2020-03-03 08:44] LABS: BLOOD UREA NITROGEN 28 MG/DL (7-18); CALCIUM LEVEL 8.5 MG/DL (8.8-10.2); CARBON DIOXIDE LEVEL 24 MEQ/L (21-32); CHLORIDE LEVEL 104 MEQ/L (98-107); CREATININE FOR GFR 0.48 MG/DL (0.55-1.30); GLOMERULAR FILTRATION RATE > 60.0 (>32); GLUCOSE, FASTING 160 MG/DL (70-100); MAGNESIUM LEVEL 2.3 MG/DL (1.8-2.4); POTASSIUM SERUM 4.3 MEQ/L (3.5-5.1); SODIUM LEVEL 139 MEQ/L (136-145); VANCOMYCIN LEVEL TROUGH 19.4 UG/ML (10.0-20.0)
--- NOTE | 2020-03-03 09:05 | IPNPDOC ---
Text Note Date of Service The patient was seen on 03/03/20. NOTE Vascular surgery. Dr. Morton Pt seen and examined. Her stump continues to appear ischemic, discoloration extends towards the groin medially and progressive hardening of the skin on the anterior thigh. There is no erythema, induration, drainage, and no gangrene present. The patient's incision is cleaned, Xeroform was applied over the incision and discoloration anterior thigh area, the stump is wrapped with Kerlix. Agree with palliative care consult and recommend hospice if the patient will agree. Continue to monitor her stump Continue to follow. VS,Fishbone, I+O VS, Fishbone, I+O Laboratory Tests 03/03/20 07:49 Vital Signs Date Time Temp Pulse Resp B/P (MAP) Pulse Ox O2 Delivery O2 Flow Rate FiO2 03/03/20 08:26 18 03/03/20 06:00 98.8 102 142/71 (94) 95 Room Air I&O- Last 24 Hours up to 6 AM 03/03/20 05:59 Intake Total 330 ml Output Total 0 ml Balance 330 ml Sunshine Allison Mar 03, 2020 09:05
[2020-03-03 14:00] VITALS: BP 137/70
[2020-03-03] MEDS ORDERED: ONDANSETRON 4MG/2ML VIAL IV PRN (14:00)
[2020-03-03] MEDS ORDERED: LORazepam 1 MG TAB PO PRN (14:00)
[2020-03-03] MEDS ORDERED: ATROPINE SULFATE 1% OP SOLN 2 ML BTL SL PRN (14:00)
[2020-03-03] MEDS ORDERED: SCOPOLAMINE 1MG TRANSDERMAL PATCH TOP PRN (14:00)
[2020-03-03] MEDS ORDERED: FLEET ENEMA PR PRN (14:15)
[2020-03-03] MEDS ORDERED: VANCOMYCIN HCL 500 MG in D5W MINI-BAG PLUS 100 ML IV SCH (15:00)
--- NOTE | 2020-03-03 15:37 | IPN ---
PROGRESS NOTE DATE: 03/03/2020 Debby is in good spirits today. She just had lunch. She had a cheese sandwich and tomato soup with crackers. She has no complaints other than pain in her stump. She has had no fever or chills, no cough or increased shortness of breath. She remains afebrile. Temperature is 98.8, pulse 102, respirations 18, blood pressure 142/71, oxygen saturation 95% on room air. HEART: Normal S1, S2, tachycardic. No murmurs appreciated. LUNGS: Diminished breath sounds in the bases. ABDOMEN: Soft, nontender. No hepatosplenomegaly. Right leg stump with ecchymosis extending to the groin with induration and discoloration. The incision is clean, wrapped with Kerlix. Vascular note was reviewed. There is no evidence of infection, but the stump is ischemic. LABORATORY DATA: White count 13.6, hemoglobin 10, hematocrit 33.7, platelets 741. Sodium 139, potassium 4.3, chloride 104, bicarbonate 24, BUN 28, creatinine 0.48, glucose 160, calcium 8.5, magnesium 2.3. Procalcitonin was down from 68 to 7.45. Blood cultures: No growth after 72 hours, and urine culture had yeast-like organism but patient asymptomatic. IMPRESSION: 1. Ischemic stump with no evidence of infection clinically. Will discontinue antibiotic. 2. Candiduria without symptoms. Hospice care has been discussed with her granddaughter, who is her caregiver. Infectious disease signing off.
[2020-03-03] MEDS: MORPHINE 2 MG/ML 1ML VIAL (J2270) IV PRN (18:19)
--- NOTE | 2020-03-03 18:34 | IPNPDOC ---
Text Note Date of Service The patient was seen on 03/03/20. NOTE Subjective: Patient stated that she continues to have right stump pain . Objective: GENERAL APPEARANCE: NAD HEENT: no scleral icterus, no JVD, EOMI CARDIOVASCULAR: S1S2 LUNGS: Diminished lung sounds bilaterally ABDOMEN: soft & not tender w palpitation MUSCULOSKELETAL: Right AKA covered with dressing, Left AKA. Assessment/Plan Patient is 79 years old female with past medical history of peripheral vascular diseases type 2 diabetes, COPD presented to the hospital for elective right AKA. Patient was seen by Dr. Blanco who recommended a right AKA due to severe peripheral vascular diseases. Of note, patient has left AKA. Of note patient continues to smoke. During my interview patient denied fever, chest pain, shortness of breath, chills, nausea, vomiting, diarrhea or dysuria. During hospital stay patient received right AKA, prognosis is very poor due to progressive ischemia of wound due to PVD. After discussion with healthcare proxy patient was transferred to [facility] Problems Palliative care Follow up with hospice in the outpatient settings HTN (hypertension) Type 2 diabetes mellitus (3) PVD (peripheral vascular disease)/ status post right AKA COPD (chronic obstructive pulmonary disease) Tobacco abuse History of GI bleed PPI Anemia of chronic diseases Constipation Leukocytosis VS,Fishbone, I+O VS, Fishbone, I+O Laboratory Tests 03/03/20 07:49 Vital Signs Date Time Temp Pulse Resp B/P (MAP) Pulse Ox O2 Delivery O2 Flow Rate FiO2 03/03/20 18:19 18 03/03/20 14:00 97.6 95 137/70 (92) 95 Room Air I&O- Last 24 Hours up to 6 AM 03/03/20 06:00 Intake Total 330 ml Output Total 0 ml Balance 330 ml CUONG BEAVER DO Mar 03, 2020 18:34
[2020-03-03] MEDS: MIRTAZAPINE 15 MG TAB PO SCH (20:37)
[2020-03-03] MEDS: traZODone 25MG PER 1/2 TABLET PO SCH (20:38)
[2020-03-03] MEDS: GABAPENTIN 300 MG CAP PO SCH (20:38)
[2020-03-03] MEDS: SENNA 8.6 MG TAB (SENOKOT) PO SCH (20:38)
[2020-03-04] MEDS: MORPHINE 2 MG/ML 1ML VIAL (J2270) IV PRN (00:10)
[2020-03-04] MEDS: TIOTROPIUM INHALER/CAPSULE (SPIRIVA) INH SCH (05:35)
[2020-03-04] MEDS: GABAPENTIN 100 MG CAP PO SCH ×2 (08:14→12:23)
[2020-03-04] MEDS: PERCOCET 5MG/325MG TAB PO PRN ×3 (08:15→20:59)
[2020-03-04] MEDS: DOCUSATE SODIUM 100MG CAPSULE PO SCH (08:16)
[2020-03-04] MEDS: SENNA 8.6 MG TAB (SENOKOT) PO SCH (20:42)
[2020-03-04] MEDS: traZODone 25MG PER 1/2 TABLET PO SCH (20:58)
[2020-03-04] MEDS: MIRTAZAPINE 15 MG TAB PO SCH (20:58)
[2020-03-04] MEDS: GABAPENTIN 300 MG CAP PO SCH (20:58)
[2020-03-05] MEDS: PERCOCET 5MG/325MG TAB PO PRN ×4 (04:45→20:05)
[2020-03-05] MEDS: TIOTROPIUM INHALER/CAPSULE (SPIRIVA) INH SCH (07:41)
[2020-03-05] MEDS: DOCUSATE SODIUM 100MG CAPSULE PO SCH (08:53)
[2020-03-05] MEDS: GABAPENTIN 100 MG CAP PO SCH ×2 (08:53→12:46)
--- NOTE | 2020-03-05 11:24 | IPN ---
PROGRESS NOTE DATE: 03/05/2020 SUBJECTIVE: Debby is seen while rounding for the Hospitalist. She is on BOOKING MANAGER status. Not aroused, the patient was resting comfortably and comfort needs appear to be met. She has had no recent labs drawn. Currently not receiving vital signs. BOOKING MANAGER needs being achieved.
[2020-03-05] MEDS: MORPHINE 2 MG/ML 1ML VIAL (J2270) IV PRN (18:13)
[2020-03-05] MEDS: GABAPENTIN 300 MG CAP PO SCH (20:03)
[2020-03-05] MEDS: traZODone 25MG PER 1/2 TABLET PO SCH (20:03)
[2020-03-05] MEDS: MIRTAZAPINE 15 MG TAB PO SCH (20:03)
[2020-03-05] MEDS: SENNA 8.6 MG TAB (SENOKOT) PO SCH (20:04)
[2020-03-06] MEDS: PERCOCET 5MG/325MG TAB PO PRN ×2 (01:12→09:32)
[2020-03-06] MEDS ORDERED: MORPHINE 10MG/0.5ML ORAL CONCENTRATE SOLUTION U/D SL PRN (05:30)
[2020-03-06] MEDS: TIOTROPIUM INHALER/CAPSULE (SPIRIVA) INH SCH (07:52)
[2020-03-06] MEDS: DOCUSATE SODIUM 100MG CAPSULE PO SCH (09:32)
[2020-03-06] MEDS: GABAPENTIN 100 MG CAP PO SCH ×2 (09:32→11:06)
[2020-03-06] MEDS ORDERED: MORP20SO3 PO (10:07)
[2020-03-06] MEDS ORDERED: ATIV1TAB10 PO (10:07)
[2020-03-06] MEDS ORDERED: HYOS125TA PO (10:07)
--- NOTE | 2020-03-06 10:11 | DSES ---
DISCHARGE SUMMARY DATE OF ADMISSION: 02/23/2020 DATE OF DISCHARGE: 03/06/2020 PRIMARY CARE PROVIDER: Shagufta Mora, Nurse Practitioner at Dr. Hull's office. PRINCIPAL DIAGNOSIS: Ischemia of right [id number] amputation site. SECONDARY DIAGNOSES: 1. Type-2 diabetes. 2. Peripheral arterial disease. 3. COPD. 4. Tobacco abuse. 5. History of GI bleed. 6. Anemia of chronic disease. HISTORY AND HOSPITAL COURSE: Debby Hale is an 79-year-old. I assumed her care after she was already on KNITTER HAND status. I am being asked to discharge her to Hospice. She was admitted with ischemia of her right [id number] amputation site. This was treated with antibiotics. She was seen by Dr. Morton from vascular surgery who performed the right [id number] amputation and right superficial femoral artery thromboembolectomy on 02/23. Patient did not recover. It looks like she progressively declined and family opted for Hospice care. As noted above I assumed her care after she was already KNITTER HAND. DISPOSITION: The Patient is being discharge to Hospice. ADVANCED DIRECTIVES: She will be on the Hospice Comfort Care. MEDICATIONS: 1. Roxanol. 2. Ativan. 3. Levsin. PROGNOSIS: Poor. DIET AND ACTIVITY: As tolerated Shagufta Mora, Nurse Practitioner
== END 2020-03-06 11:41 | disposition home or self-care (01) | DRG 241 ==
LOC: M PCU 16:24 → M MSPAV 02-27 17:44
PROVIDERS: ADMIT Internal Medicine Nephrology; ATTEND Family Medicine
PROC: 30233N1 Transfusion of Nonautologous Red Blood Cells into Peripheral Vein, Percutaneous Approach (ICD-10-PCS; 2020-02-23)
PROC: 0Y6C0Z1 Detachment at Right Upper Leg, High, Open Approach (ICD-10-PCS; principal; 2020-02-24 14:30)
DX: E11.51 Type 2 diabetes mellitus with diabetic peripheral angiopathy without gangrene (principal); I70.291 Other atherosclerosis of native arteries of extremities, right leg; J44.9 Chronic obstructive pulmonary disease, unspecified; F17.200 Nicotine dependence, unspecified, uncomplicated; Z51.5 Encounter for palliative care; Z79.899 Other long term (current) drug therapy; Z79.82 Long term (current) use of aspirin; I10 Essential (primary) hypertension; D63.8 Anemia in other chronic diseases classified elsewhere; Z89.611 Acquired absence of right leg above knee; K59.00 Constipation, unspecified

== ENCOUNTER → 2020-02-23 | Outpatient (CLI) | payer MEDICARE, MEDICAID ==
--- NOTE | 2020-02-23 15:40 | REP ---
INDICATION: RT COOL FOOT H/O RT BI-FEM GRAFT. COMPARISON: Comparison study January 12, 2020.. TECHNIQUE: Unilateral right lower extremity duplex arterial ultrasound. Right axillofemoral bypass graft evaluation. FINDINGS: Ankle brachial index could not be measured due to inaudible flow. The right-sided axillofemoral bypass graft and fem-fem crossover segment are occluded on today's study. Minimal revascularize trickle flow is seen at the right superficial femoral artery. The common femoral artery and profundal femoral artery are occluded on the right. No detectable flow is seen in the proximal posterior tibial artery on the right. Monophasic waveforms are noted throughout the patent right lower extremity arterial vessels. Velocities below 9 centimeters/second were visualized. Right lower extremity arterial Doppler velocity chart: Right axillofemoral bypass graft occluded Right fem-fem crossover graft occluded Right LOCAL COORDINATOR occluded Profundal occluded Proximal SFA revascularized 8.5 cm/S Mid SFA 6.3 Distal SFA 8.0 Popliteal 3.5/2.5 Proximal LIZETH 3.5 Tibial-peroneal trunk 2.1 Proximal ASSISTANT PROFESSOR OF BIOLOGY occluded, no detectable flow Distal ASSISTANT PROFESSOR OF BIOLOGY occluded Distal LIZETH 3.9 IMPRESSION: Occluded right axillofemoral and fem-fem crossover graft. Occluded cyst LOCAL COORDINATOR and profundal and posterior tibial arteries on the right. Monophasic waveforms with very slow for all flow. <Electronically signed by Daniel Spaulding > 02/23/20 [id number]
== END ==
LOC: M RAD 14:11
PROVIDERS: ATTEND Physician Assistant
DX: I70.291 Other atherosclerosis of native arteries of extremities, right leg (principal)